=== PATIENT | female | born 1995 | race Caucasian/White ===

== ENCOUNTER → 2017-10-16 09:15 | Outpatient (CLI) | payer OTHER, SELFPAY ==
--- NOTE | 2017-10-16 09:16 | RAD_ITS ---
STUDY: X-RAY - RIGHT KNEE REASON FOR EXAM: Knee pain following injury. TECHNIQUE: 4 view(s) of the knee. COMPARISON: None. FINDINGS: Normal visualized distal femur. Normal visualized proximal tibia and fibula. Normal proximal tibiofibular articulation. Normal medial femorotibial compartment. Normal lateral femorotibial compartment. Normal patellofemoral articulation. The soft tissue structures are unremarkable. RAD/Knee 4 or More Views IMPRESSION: Normal x-ray examination of the right knee. Electronically Signed: Juan Sofia MD at 9:55 EDT Tel , Service support ,
[2017-10-16 10:36] LABS: Lyme Ab Screen Interpretation REF LAB
[2017-10-16 12:18] LABS: Absolute Lymphocyte Count 2.17 X10^3/ul (0.83-4.51); Absolute Neutrophil Count 4.1 X10^3/uL (2.0-7.7); Basophil# 0.02 X10^3/uL; Basophil% 0.3 % (0-1); Eosinophil# 0.21 X10^3/uL; Hematocrit 45.5 % (37-47); Hemoglobin 15.2 g/dl (12.0-15.0); Lymphocyte # 2.17 X10^3/ul (4.0); Lymphocyte % 31.2 % (19-41); Mean Corp Hgb Conc 33.4 g/gl (32-36); Mean Corpuscular Hgb 30.5 pg (27.0-32.0); Mean Corpuscular Volume 91.2 fL (81-99); Mean Platelet Vol. 9.7 fl (6.2-12.0); Monocyte# 0.44 X10^3/uL; Monocyte% 6.3 % (0-10); Neutrophil # 4.11 X10^3/uL (2.7-7.7); Neutrophil % 59.1 % (47-70); Platelet Count 350 K/mm3 (150-450); RBC Distribution Width CV 12.7 % (11.6-14.6); RBC Distribution Width SD 41.8 fl (35.1-43.9); Red Blood Count 4.99 M/mm3 (4.2-5.4)
[2017-10-16 12:19] LABS: POSITIVE COUNT NO; POSITIVE DIFFERENTIAL NO; POSITIVE MORPHOLOGY NO
[2017-10-16 12:25] LABS: CRP < 2.90 mg/L (0.0-3.0); Rheumatoid Factor < 10.0 IU/mL (<15)
[2017-10-16 12:31] LABS: Erythrocyte Sedimentation Rate 3 mm/hr (0-20)
[2017-10-18 14:19] LABS: ANTINUCLEAR ANTIBODIES DIRECT Negative (Negative); Lyme Scn Total Ab w/Rflx <0.91 ISR (0.00-0.90)
== END ==
PROVIDERS: Family Provider Internal Medicine; PCP Internal Medicine; Visit Provider Orthopaedic Surgery
DX: M13.161 Monoarthritis, not elsewhere classified, right knee (principal); M25.561 Pain in right knee
CPT/HCPCS: 36415; 73564; 85025; 85652; 86038; 86140; 86431; 86618

== ENCOUNTER → 2018-05-03 09:10 | Outpatient (CLI) | payer OTHER, SELFPAY ==
[2018-05-03 09:57] LABS: Erythrocyte Sedimentation Rate < 1 mm/hr (0-20)
[2018-05-03 10:00] LABS: Absolute Lymphocyte Count 2.96 X10^3/ul (0.83-4.51); Absolute Neutrophil Count 3.6 X10^3/uL (2.0-7.7); Basophil# 0.03 X10^3/uL; Basophil% 0.4 % (0-1); Eosinophil# 0.26 X10^3/uL; Eosinophils% 3.6 % (0-5); Hematocrit 45.1 % (37-47); Hemoglobin 14.7 g/dl (12.0-15.0); Lymphocyte # 2.96 X10^3/ul (4.0); Lymphocyte % 41.5 % (19-41); Mean Corp Hgb Conc 32.6 g/gl (32-36); Mean Corpuscular Hgb 30.1 pg (27.0-32.0); Mean Corpuscular Volume 92.2 fL (81-99); Monocyte# 0.32 X10^3/uL; Monocyte% 4.5 % (0-10); Neutrophil # 3.57 X10^3/uL (2.7-7.7); POSITIVE COUNT NO; POSITIVE DIFFERENTIAL NO; POSITIVE MORPHOLOGY NO; Platelet Count 273 K/mm3 (150-450); RBC Distribution Width CV 12.9 % (11.6-14.6); Red Blood Count 4.89 M/mm3 (4.2-5.4); White Blood Count 7.1 K/mm3 (4.4-11.0)
[2018-05-07 09:01] LABS: ANTINUCLEAR ANTIBODIES DIRECT Negative (Negative)
[2018-05-07 22:08] LABS: Lyme IgG P18 Ab Absent (.); Lyme IgG P23 Ab Absent (.); Lyme IgG P28 Ab Absent (.); Lyme IgG P30 Ab Absent (.); Lyme IgG P39 Ab Absent (.); Lyme IgG P41 Ab Present (.); Lyme IgG P45 Ab Absent (.); Lyme IgG P58 Ab Absent (.); Lyme IgG P66 Ab Absent (.); Lyme IgG P93 Ab Absent (.); Lyme IgM P23 Ab Absent (.); Lyme IgM P39 Ab Absent (.); Lyme IgM P41 Ab Absent (.)
[2018-05-08 15:51] LABS: Angiotensin Convert Enzyme 31 U/L (14-82); Lyme IgG WB Interpretation Negative (.); Lyme IgM WB Interpretation Negative (.)
[2018-05-10 05:26] LABS: Rapid Plasmin Reagin (RPR) NONREACTIVE (NONREACTIVE)
== END ==
PROVIDERS: Family Provider Internal Medicine; PCP Internal Medicine
DX: H43.391 Other vitreous opacities, right eye (principal)
CPT/HCPCS: 36415; 82164; 85025; 85652; 86038; 86592; 86617

== ENCOUNTER → 2021-01-26 | Outpatient (CLI) | payer OTHER, SELFPAY ==
[2021-01-26 16:19] VITALS: BMI 20.9
[2021-01-26 17:51] LABS: Bacteria 0 SEEN /hpf (None Seen); Mucous, Urine 0 SEEN /hpf (<or=2+); Red Blood Cells-Urine 0 SEEN /hpf (0-5); Squamous Epithelial Cells - UA 0 SEEN /hpf (5-10); White Blood Cells 0 SEEN /hpf (0-5)
[2021-01-26 18:16] LABS: Color, Urine Yellow (Yellow); Glucose, Dipstick Normal (Normal); Ketone-Dipstick Negative (Negative); Leukocyte Esterase-Dipstick Negative /ul (Negative); Nitrite-Dipstick Negative (Negative); Occult Blood-Urine Negative /ul (Negative); Protein-Dipstick Negative (Negative); Urine Bilirubin Dipstick Negative (Negative); Urine Clarity Clear (Clear); Urine Urobilinogen Normal (Normal)
== END | disposition home or self-care (01) ==
LOC: LABSPEC 17:50
PROVIDERS: PCP Internal Medicine; Visit Provider Physician Assistant
DX: R39.15 Urgency of urination (principal)
CPT/HCPCS: 81001; 87086; 87088

== ENCOUNTER → 2021-02-17 | Outpatient (CLI) | payer OTHER, SELFPAY ==
[2021-02-17 15:00] VITALS: BMI 20.9
[2021-02-17 15:38] LABS: Bacteria 0 SEEN /hpf (None Seen); Mucous, Urine 0 SEEN /hpf (<or=2+); Red Blood Cells-Urine 0 SEEN /hpf (0-5); White Blood Cells 0 SEEN /hpf (0-5)
[2021-02-17 16:52] LABS: Color, Urine Straw (Yellow); Glucose, Dipstick Normal (Normal); Ketone-Dipstick Negative (Negative); Leukocyte Esterase-Dipstick Negative /ul (Negative); Nitrite-Dipstick Negative (Negative); Occult Blood-Urine Negative /ul (Negative); Protein-Dipstick Negative (Negative); Urine Bilirubin Dipstick Negative (Negative); Urine Clarity Clear (Clear); Urine Urobilinogen Normal (Normal)
[2021-02-17 17:10] LABS: Squamous Epithelial Cells - UA 0-5 SEEN /hpf (5-10)
[2021-02-20 14:07] LABS: Chlamydia By Nucleic Acid AMP Negative (Negative)
[2021-02-21 12:10] LABS: Gonococcus By Nucleic Acid AMP Negative (Negative)
== END | disposition home or self-care (01) ==
LOC: LABSPEC 15:37
PROVIDERS: PCP Internal Medicine; Referring Provider Physician Assistant; Visit Provider Physician Assistant
DX: R35.0 Frequency of micturition (principal)
CPT/HCPCS: 81001; 87086; 87088; 87491; 87591

== ENCOUNTER → 2022-04-28 | Outpatient (CLI) | payer OTHER, SELFPAY ==
[2022-04-28 10:40] LABS: T4 Free Direct 0.92 ng/dL (0.76-1.46); Thyroid Stim Hormone (TSH) 1.69 uIU/mL (0.358-3.74)
== END | disposition home or self-care (01) ==
LOC: LAB 09:15
PROVIDERS: PCP Internal Medicine; Visit Provider Internal Medicine
DX: N92.6 Irregular menstruation, unspecified (principal)
CPT/HCPCS: 36415; 84439; 84443

== ENCOUNTER → 2022-06-19 | Outpatient (CLI) | payer OTHER, SELFPAY ==
--- NOTE | 2022-06-19 10:12 | RAD_ITS ---
STUDY: X-RAY - CERVICAL SPINE REASON FOR EXAM: Female, 27 years old. Neck pain TECHNIQUE: 3 view(s) of the cervical spine were obtained. COMPARISON: None FINDINGS: Normal anterior atlantoaxial articulation. Normal odontoid process. Scoliosis/torticollis. Normal cervical lordosis. Normal vertebral bodies and endplates. Normal disc space heights. Normal visualized intervertebral neuroforamina. The soft tissue structures are unremarkable. Soft tissue density right neck requires clinical correlation. RAD/Cerv Spine 2 or 3 Views IMPRESSION: Torticollis. Soft tissue density right neck requires clinical correlation may be external. Electronically Signed: Sae Campos MD at 18:45 EST ,
== END | disposition home or self-care (01) ==
LOC: MTRAD 10:11
PROVIDERS: PCP Internal Medicine; Referring Provider Chiropractor; Visit Provider Chiropractor
DX: M54.2 Cervicalgia (principal); R51.9 Headache, unspecified; M99.01 Segmental and somatic dysfunction of cervical region; G89.29 Other chronic pain
CPT/HCPCS: 72040

== ENCOUNTER → 2022-06-22 | Outpatient (CLI) | payer OTHER, SELFPAY ==
[2022-06-22 11:24] LABS: hCG Titer Quant., Serum 67 mIU/mL (1-3)
== END | disposition home or self-care (01) ==
LOC: LAB 09:41
PROVIDERS: PCP Internal Medicine; Visit Provider Obstetrics & Gynecology
DX: N92.6 Irregular menstruation, unspecified (principal)
CPT/HCPCS: 36415; 84702

== ENCOUNTER → 2022-07-04 | Outpatient (CLI) | payer OTHER, SELFPAY ==
--- NOTE | 2022-07-04 14:57 | RAD_ITS ---
STUDY: X-RAY - CERVICAL SPINE REASON FOR EXAM: Female, 27 years old. Neck pain and headache TECHNIQUE: 2 view(s) of the cervical spine were obtained. COMPARISON: Earlier today FINDINGS: Normal anterior atlantoaxial articulation. Normal odontoid process. Stable mild levoscoliosis. Normal cervical lordosis. Normal vertebral bodies and endplates. Normal disc space heights. Normal visualized intervertebral neuroforamina. The soft tissue structures are unremarkable. RAD/Cerv Spine 2 or 3 Views IMPRESSION: No acute findings, stable mild levoscoliosis Electronically Signed: Renato Montemayor MD at 15:42 EST ,
== END | disposition home or self-care (01) ==
LOC: RAD 14:56
PROVIDERS: PCP Internal Medicine; Visit Provider Chiropractor
DX: M54.2 Cervicalgia (principal); M99.01 Segmental and somatic dysfunction of cervical region; M41.9 Scoliosis, unspecified; G89.29 Other chronic pain
CPT/HCPCS: 72040

== ENCOUNTER → 2022-08-08 | Outpatient (CLI) | payer OTHER, SELFPAY ==
[2022-08-08 08:42] LABS: Hematocrit 41.8 % (37-47); Hemoglobin 13.9 g/dL (12.0-15.0); Mean Corp Hgb Conc 33.3 g/dL (32-36); Mean Corpuscular Hgb 30.3 pg (27.0-32.0); Mean Corpuscular Volume 91.1 fL (81-99); Mean Platelet Vol. 9.6 fl (6.2-12.0); Platelet Count 347 K/mm3 (150-450); RBC Distribution Width CV 12.9 % (11.6-14.6); RBC Distribution Width SD 42.8 fl (35.1-43.9); Red Blood Count 4.59 M/mm3 (4.2-5.4); White Blood Count 8.4 K/mm3 (4.4-11.0)
[2022-08-08 09:40] LABS: HIV - WCH Non-Reactive (Nonreactive); Hepatitis B Surface Antigen Non-Reactive (Nonreactive); Hepatitis C Antibody Non-Reactive (Nonreactive); Rubella IgG Reactive (Nonreactive); Syphilis Antibodies Non-reactive
== END | disposition home or self-care (01) ==
LOC: LAB 07:38
PROVIDERS: PCP Internal Medicine; Referring Provider Obstetrics & Gynecology; Visit Provider Obstetrics & Gynecology
DX: Z34.01 Encounter for supervision of normal first pregnancy, first trimester (principal)
CPT/HCPCS: 36415; 85027; 86703; 86762; 86780; 86803; 86850; 86900; 86901; 87340

== ENCOUNTER → 2022-10-09 | Outpatient (CLI) | payer OTHER, SELFPAY ==
--- NOTE | 2022-10-09 09:47 | US_ITS ---
STUDY: SECOND AND THIRD TRIMESTER OBSTETRICAL ULTRASOUND REASON FOR EXAM: Female, 27 years old LMP: May 26, 2022. TECHNIQUE: Transabdominal TECHNICAL QUALITY: Adequate. PRIOR ULTRASOUND: None. FINDINGS: There is a single intrauterine fetus. The fetus is in a breech presentation. There is demonstrated cardiac activity with a heart rate of 155 bpm. There is a normal amniotic fluid volume. The largest amniotic fluid pocket measures 6.3 cm x 5.6 cm. The amniotic fluid index (YAO) is within normal limits. The placenta is anterior in location and is not low lying. There are Grade 0 placental changes. The cervix measures 3.2 cm in length. The bilateral adnexal regions are normal. BIOMETRY: BPD: 4.5 cm: 19 weeks, 5 days HC: 16.5 cm: 19 weeks, 1 days AC: 14.1 cm: 19 weeks, 3 days FL: 3.1 cm: 19 weeks, 3 days CI: 81% FL/BPD: 67.1% FL/HC: FL/AC: 21.7% HC/AC: 1.17 age by current US: 19 weeks, 1 days. BELTRAN by current US: March 04, 2023. Estimated weight: 295 grams, +/- 44 grams, 47.2 %. Age by LMP: 19 weeks, 3 days. BELTRAN by LMP: March 02, 2023. ANATOMY: Gender: Female Cranium: Normal lateral ventricles. Normal choroid plexus. Normal cerebellum. Normal cisterna magna. Normal face, nose and lips. Chest: Normal 4-chamber heart. Abdomen/Pelvis: Normal diaphragm. Normal stomach. Normal abdominal wall. Normal cord insertion. Normal 3 vessel cord. Normal kidneys. Normal bladder. Spine: Normal cervical spine. Normal thoracic spine. Normal lumbar spine. Normal sacrum. Extremities: Normal bilateral upper extremities. Normal bilateral lower extremities. US/OB Anatomy Scan IMPRESSION: Single live intrauterine gestation with mean gestational age of 19 weeks and 1 day. Electronically Signed: Raghav Blas MD at 15:42 EDT ,
== END | disposition home or self-care (01) ==
LOC: US 09:46
PROVIDERS: PCP Internal Medicine; Visit Provider Obstetrics & Gynecology
DX: Z34.92 Encounter for supervision of normal pregnancy, unspecified, second trimester (principal)
CPT/HCPCS: 76805

== ENCOUNTER → 2022-11-30 | Outpatient (CLI) | payer OTHER, SELFPAY ==
[2022-11-30 10:15] LABS: Absolute Lymphocyte Count 2.25 X10^3/uL (0.83-4.51); Absolute Neutrophil Count 6.1 X10^3/uL (2.0-7.7); Basophil# 0.03 X10^3/uL; Basophil% 0.3 % (0-1); Eosinophil# 0.14 X10^3/uL; Eosinophils% 1.5 % (0-5); Hemoglobin 12.2 g/dL (12.0-15.0); Lymphocyte # 2.25 X10^3/ul (0.83-4.51); Lymphocyte % 24.8 % (19-41); Mean Corp Hgb Conc 32.1 g/dL (32-36); Mean Corpuscular Hgb 31.9 pg (27.0-32.0); Mean Corpuscular Volume 99.2 fL (81-99); Mean Platelet Vol. 9.3 fl (6.2-12.0); Monocyte# 0.48 X10^3/uL; Monocyte% 5.3 % (0-10); NRBC Flagged by Analyzer 0 % (0-5); Neutrophil # 6.11 X10^3/uL (2.7-7.7); Neutrophil % 67.4 % (47-70); Platelet Count 272 K/mm3 (150-450); RBC Distribution Width CV 13.6 % (11.6-14.6); RBC Distribution Width SD 49.6 fl (35.1-43.9); Red Blood Count 3.83 M/mm3 (4.2-5.4); White Blood Count 9.1 K/mm3 (4.4-11.0)
[2022-11-30 10:42] LABS: Glucose Challenge Gest 1H 50g 83 mg/dL (70-140)
== END | disposition home or self-care (01) ==
LOC: LAB 08:15
PROVIDERS: PCP Internal Medicine; Referring Provider Advanced Practice Midwife; Visit Provider Advanced Practice Midwife
DX: Z34.02 Encounter for supervision of normal first pregnancy, second trimester (principal); Z3A.21 21 weeks gestation of pregnancy
CPT/HCPCS: 36415; 82950; 85025

== ENCOUNTER → 2022-12-13 | Outpatient (CLI) | payer OTHER, SELFPAY ==
[2022-12-13 13:32] LABS: ALB/GLOB Ratio 0.7 RATIO (0.9-2.4); AST(SGOT) 17 U/L (15-37); Alanine Aminotransfer ALT/SGPT 20 U/L (13-56); Albumin, Serum 2.7 g/dL (3.2-5.0); Alkaline Phosphatase 79 U/L (45-117); Anion Gap 9 (5-15); BUN 7 mg/dL (7-18); BUN/Creat Ratio 17.5 RATIO (10-20); Calcium,Total 8.7 mg/dL (8.5-10.1); Chloride 106 mmol/L (98-107); EST Glomerular Filtration Rate 205 mL/min (>60); Est Glom Filt Rate - Afr Amer 248 mL/min (>60); Globulin 3.8 g/dL (2.2-4.2); Glucose 101 mg/dL (74-106); Potassium 3.9 mmol/L (3.5-5.1); Protein, Total 6.5 g/dL (6.4-8.2); Sodium Level 139 mmol/L (136-145); T4 Free Direct 0.79 ng/dL (0.76-1.46); Thyroid Stim Hormone (TSH) 1.34 uIU/mL (0.358-3.74)
== END | disposition home or self-care (01) ==
LOC: BIMLAB 11:21
PROVIDERS: PCP Internal Medicine; Referring Provider Internal Medicine; Visit Provider Internal Medicine
DX: R00.2 Palpitations (principal)
CPT/HCPCS: 36415; 80053; 84439; 84443

== ENCOUNTER → 2022-12-14 | Outpatient (CLI) | payer OTHER, SELFPAY | END | disposition home or self-care (01) | LOC: PSN 09:53 | PROVIDERS: PCP Internal Medicine; Referring Provider Internal Medicine; Visit Provider Internal Medicine | DX: R00.2 Palpitations (principal) | CPT/HCPCS: 93225; 93226 ==

== ENCOUNTER → 2022-12-27 | Outpatient (CLI) | payer OTHER, SELFPAY ==
--- NOTE | 2022-12-27 13:49 | ECHOD_ITS ---
Reason For Study: PALPITATIONS Procedure This was a 2D Doppler, Color Flow transthoracic echocardiogram. Exam performed in department. Left Ventricle Normal LV size. Left ventricular systolic function is normal. The estimated ejection fraction is 60 %. No regional wall motion abnormalities noted. Right Ventricle Normal RV size. Normal systolic function. Atria Normal left atrium. Normal right atrium. Mitral Valve Normal mitral valve. Tricuspid Valve Normal tricuspid valve. Aortic Valve Normal aortic valve. Pulmonic Valve The pulmonic valve is not well visualized. Great Vessels Normal aortic root. Pericardium/Pleural No pericardial effusion. MMode/2D Measurements & Calculations LVIDd: 4.4 cm IVSd: 1.0 cm Ao root diam: 2.3 cm LVIDs: 3.2 cm LVPWd: 0.91 cm FS: 28.1 % LAV(MOD-bp): 25.8 ml LVAd ap4: 18.5 cm2 SV(MOD-sp4): 26.3 ml LAV(MOD-bp) Indexed: 17.5 ml/m2 LVLd ap4: 7.2 cm LAV(MOD-sp2): 26.3 ml EDV(MOD-sp4): 40.0 ml LAV(MOD-sp4): 23.3 ml EDV(sp4-el): 40.5 ml LVAs ap4: 8.9 cm2 LVLs ap4: 5.5 cm ESV(MOD-sp4): 13.7 ml ESV(sp4-el): 12.2 ml EF(MOD-sp4): 65.8 % EF(sp4-el): 69.8 % SV(sp4-el): 28.3 ml LA A4 area: 11.9 cm2 LA dimension(2D): 3.2 cm RA A4 area: 6.7 cm2 Time Measurements MV dec time: 0.16 sec Doppler Measurements & Calculations MV E max vikas: 71.1 cm/sec Lat Peak E' Vikas: 21.4 cm/sec Med Peak E' Vikas: 14.9 cm/sec MV A max vikas: 62.4 cm/sec E/E' lat: 3.3 E/E' med: 4.8 MV E/A: 1.1 MV V2 max: 83.0 cm/sec Ao V2 max: 152.8 cm/sec MV max P.8 mmHg MV dec slope: 468.6 cm/sec2 Ao max P.3 mmHg MV V2 mean: 63.1 cm/sec Ao V2 mean: 104.3 cm/sec MV mean P.7 mmHg Ao mean P.0 mmHg MV V2 VTI: 16.0 cm Ao V2 VTI: 29.2 cm AV (velocity ratio): 0.85 LV V1 max: 128.9 cm/sec PA V2 max: 112.7 cm/sec LV V1 max P.7 mmHg PA V2 mean: 80.1 cm/sec LV V1 mean P.6 mmHg LV V1 mean: 88.5 cm/sec LV V1 VTI: 24.7 cm ECHO/Echo Complete Interpretation Summary Normal LV size. Left ventricular systolic function is normal. The estimated ejection fraction is 60 %. Structurally normal valves. Ordering Physician: Fredy Pena Referring Physician: Fredy Pena Performed By: Krys Hodges RCS
== END | disposition home or self-care (01) ==
LOC: CVS 13:40
PROVIDERS: PCP Internal Medicine; Referring Provider Internal Medicine Cardiovascular Disease; Visit Provider Internal Medicine Cardiovascular Disease
DX: R00.2 Palpitations (principal)
CPT/HCPCS: 93306

== ENCOUNTER → 2023-01-18 | Outpatient (CLI) | payer OTHER, SELFPAY ==
--- NOTE | 2023-01-18 14:40 | US_ITS ---
STUDY: SECOND AND THIRD TRIMESTER OBSTETRICAL ULTRASOUND - LIMITED REASON FOR EXAM: Female, 27 years old GROWTH-SGA LMP: PRIOR ULTRASOUND: 10/09/2022 TECHNIQUE: Transabdominal TECHNICAL QUALITY: Adequate. FINDINGS: There is a single intrauterine fetus. The fetus is in a cephalic presentation. There is demonstrated cardiac activity with a heart rate of 166 bpm. There is a normal amniotic fluid volume. The largest amniotic fluid pocket measures 5.9 cm. The amniotic fluid index (YAO) is 19.8 cm. The placenta is anterior in location and is not low lying. There are Grade 2 placental changes. The cervix measures 3.3 cm in length. BIOMETRY: BPD: 8.2 cm: 33 weeks, 1 days HC: 31.4 cm: 35 weeks, 2 days AC: 29.7 cm: 33 weeks, 5 days FL: 6.4 cm: 33 weeks, 0 days Age by LMP: weeks, days. BELTRAN by LMP: . age by prior US: weeks, days. BELTRAN by prior US: . age by current US: 33 weeks, 5 days. BELTRAN by current US: 03/03/2023. Estimated weight: 2208 grams, +/- 331 grams, 33 percentile. Gender: US/OB Limited With Biometrics IMPRESSION: Living intrauterine of 33 weeks 5 days as described above. Electronically Signed: Leon Felix MD at 18:17 EDT ,
== END | disposition home or self-care (01) ==
LOC: US 14:27
PROVIDERS: PCP Internal Medicine; Referring Provider Advanced Practice Midwife; Visit Provider Advanced Practice Midwife
DX: Z34.90 Encounter for supervision of normal pregnancy, unspecified, unspecified trimester (principal); Z3A.33 33 weeks gestation of pregnancy
CPT/HCPCS: 76816

== ENCOUNTER 2023-02-09 10:55 | Outpatient (CLI) | payer OTHER, SELFPAY ==
[2023-02-09 11:12] VITALS: BMI 27.8
[2023-02-09 11:19] VITALS: BP 126/79; PULSE 93; TEMP 36.6; O2SAT 99
[2023-02-09 11:52] LABS: ROM Internal Control Test YES-OK TO RESULT pt. (Internal QC); ROM Patient Test Negative (Negative); Record Kit Lot#, ROM+ K1374
--- NOTE | 2023-02-11 10:33 | OB.TRI.NOTE ---
HPI - General General Date of Admission: 02/09/23 Date of Service: 02/09/23 Chief Complaint: LOF HPI Narrative MELANY MACE, is a 28 F who presents with possible LOF. PFSH PFS Medical History Back pain Chronic neck pain Menstrual irregularity Other vitreous opacities, bilateral Palpitations Persistent headaches Preventative health care Seasonal allergies Shortness of breath Urinary frequency Home Medications mv-mn no.97-folic 180 mcg-dha 25 mg-herb no.293 25 mg chewable tablet (Alive Daily Support ) 1 tab PO DAILY 04/19/22 [History Last Taken 02/08/23 21:00 1 TAB] aspirin 81 mg chewable tablet (Susie Chewable Low Dose Aspirin) 162 mg PO DAILY 12/13/22 [History Last Taken 02/08/23 21:00 81 mg] loratadine 10 mg tablet (Claritin) 10 mg PO DAILY 12/13/22 [History Last Taken Unknown] Allergy/AdvReac Type Severity Reaction Status Date / Time mold Allergy unknown Verified 01/29/23 09:05 ragweed pollen Allergy unknown Verified 01/29/23 09:05 Family History Grandmother Cancer lung CVA (cerebral vascular accident) Grandfather Cancer pancreatic Father Heart disease Hypertension Hyperlipidemia Grandfather Heart disease CVA (cerebral vascular accident) Surgical History H/O wisdom tooth extraction Social History Smoking Status: Never smoker alcohol intake: never substance use type: does not use caffeine: Yes (Occasionally) Type: coffee what type of physical activity do you participate in: walking frequency: 3-4 times per week NST FHR Rate Baby A Baseline: 120 Variability:: Moderate Accelerations:: 15 x 15 Decelerations:: None NST Reactive:: Yes FHR Category:: Category I Uterine Activity:: irregular ctx's that the pt is not feeling Assessment & Plan (1) 37 weeks gestation of : (2) Vaginal discharge: PLAN: Not ruptured. NST reactive. D/c home.
== END 2023-02-09 12:48 | disposition home or self-care (01) ==
LOC: WPOUT 11:00 → WP 11:01
PROVIDERS: PCP Internal Medicine; Referring Provider Obstetrics & Gynecology; Visit Provider Obstetrics & Gynecology
DX: O99.891 Other specified diseases and conditions complicating pregnancy (principal); Z3A.37 37 weeks gestation of pregnancy; N89.8 Other specified noninflammatory disorders of vagina
CPT/HCPCS: 59025; 59050; 84112; 99221; G0378

== ENCOUNTER 2023-02-28 18:50 | Inpatient (IN) | payer OTHER, SELFPAY ==
[2023-02-28 19:07] VITALS: BMI 27.9
[2023-02-28 19:24] VITALS: BP 124/76; PULSE 103; TEMP 36.4
[2023-02-28] MEDS: Lactated Ringers 1,000 ML 50 ML IV (19:25)
[2023-02-28 19:47] LABS: Absolute Lymphocyte Count 2.92 X10^3/uL (0.83-4.51); Absolute Neutrophil Count 8.9 X10^3/uL (2.0-7.7); Basophil# 0.03 X10^3/uL; Basophil% 0.2 % (0-1); Eosinophil# 0.27 X10^3/uL; Eosinophils% 2.1 % (0-5); Hematocrit 38.5 % (37-47); Hemoglobin 12.8 g/dL (12.0-15.0); Lymphocyte # 2.92 X10^3/ul (0.83-4.51); Lymphocyte % 22.9 % (19-41); Mean Corp Hgb Conc 33.2 g/dL (32-36); Mean Corpuscular Volume 96.3 fL (81-99); Mean Platelet Vol. 9.7 fl (6.2-12.0); Monocyte# 0.55 X10^3/uL; Monocyte% 4.3 % (0-10); NRBC Flagged by Analyzer 0 % (0-5); Neutrophil # 8.92 X10^3/uL (2.7-7.7); Platelet Count 242 K/mm3 (150-450); RBC Distribution Width CV 13.2 % (11.6-14.6); RBC Distribution Width SD 46.7 fl (35.1-43.9); White Blood Count 12.8 K/mm3 (4.4-11.0)
[2023-02-28 19:50] VITALS: PULSE 106; PULSE 99; O2SAT 99
[2023-02-28] MEDS: miSOPROStol 25 MCG TABLET PO (20:08)
[2023-02-28 20:24] LABS: Syphilis Antibodies Non-reactive
[2023-03-01] VITALS (57 sets, daily range): BP systolic 94–125; BP diastolic 49–76; PULSE 68–116; RESP 16; TEMP 36.1–36.9; O2SAT 88–100
[2023-03-01] MEDS: miSOPROStol 25 MCG TABLET PO ×2 (00:11→04:18)
[2023-03-01] MEDS: 0.9% Normal Saline Single 100 ML IV.SOLN. INTRA-UTER (06:31)
--- NOTE | 2023-03-01 06:42 | HP.PCM.OB_ITS ---
HPI - General General Date of Admission: 02/28/23 Date of Service: 03/01/23 Chief Complaint: induction of labor HPI Narrative MELANY MACE, is a 28 F 1 para 0 who presented at 39-5/7 weeks on 02/28/2023 after evaluation office where she complained of decreased movement. She desired elective induction of labor. She denied any vaginal bleeding or leaking of fluid or regular contractions Maternal Data Information Final BELTRAN: 03/02/23 Gestational age: 39 6/7 PFSH [facility] Medical History (Updated 03/01/23 @ 06:[address] Anjelica Pichardo MD) Back pain Chronic neck pain Menstrual irregularity Other vitreous opacities, bilateral Palpitations Persistent headaches Preventative health care Seasonal allergies Shortness of breath Urinary frequency Home Medications mv-mn no.97-folic 180 mcg-dha 25 mg-herb no.293 25 mg chewable tablet (Alive Daily Support ) 1 tab PO DAILY pregnan 04/19/22 [History Last Taken 02/27/23] aspirin 81 mg chewable tablet (Susie Chewable Low Dose Aspirin) 162 mg PO DAILY 12/13/22 [History Last Taken 02/27/23] loratadine 10 mg tablet (Claritin) 10 mg PO DAILY allergies 12/13/22 [History Last Taken 02/28/23] Allergy/AdvReac Type Severity Reaction Status Date / Time mold Allergy unknown Verified 02/28/23 19:30 ragweed pollen Allergy unknown Verified 02/28/23 19:30 Family History Grandmother Cancer lung CVA (cerebral vascular accident) Grandfather Cancer pancreatic Father Heart disease Hypertension Hyperlipidemia Grandfather Heart disease CVA (cerebral vascular accident) Surgical History H/O wisdom tooth extraction Social History Smoking Status: Never smoker alcohol intake: never substance use type: does not use caffeine: Yes (Occasionally) Type: coffee what type of physical activity do you participate in: walking frequency: 3-4 times per week History Elective abortions Hx Para 0 Spontaneous abortions Hx # Term Pregnancies Ectopic pregnancies Hx # Pregnancies Multiple births # of living children ROS Constitutional Constitutional: Denies fatigue, fever(s) or malaise Eyes Eyes: Denies change in vision ENT HEENT: Denies dizziness or headache(s) Cardiovascular Cardiovascular: Denies chest pain, dyspnea or lightheadedness Respiratory/Chest Respiratory/Chest: Denies cough or dyspnea Gastrointestinal Gastrointestinal: Denies change in bowel habits Genitourinary Genitourinary: Denies burning urination or genital lesions Integumentary Integumentary: Denies rash Neurologic Neurologic: Denies confusion, dizziness, headache(s), numbness or weakness Vital Signs Vital Signs Vital Signs: 02/28/23 19:24 02/28/23 19:24 02/28/23 19:50 Temperature Temperature Source Pulse Rate 103 H 106 H Blood Pressure 124/76 H BP Systolic 124 BP Diastolic 76 Pulse Ox 02/28/23 19:50 02/28/23 19:24 02/28/23 19:50 Temperature Temperature Source Temporal Pulse Rate 99 Blood Pressure BP Systolic BP Diastolic Pulse Ox 99 02/28/23 19:24 03/01/23 00:06 03/01/23 00:06 Temperature 97.6 F L Temperature Source Pulse Rate 81 Blood Pressure 112/61 BP Systolic 112 BP Diastolic 61 Pulse Ox 03/01/23 00:06 03/01/23 00:06 03/01/23 04:11 Temperature Temperature Source Pulse Rate 86 Blood Pressure 117/69 BP Systolic 117 BP Diastolic 69 Pulse Ox 98 03/01/23 04:11 03/01/23 04:11 03/01/23 00:06 Temperature 97.0 F L Temperature Source Pulse Rate 79 Blood Pressure BP Systolic BP Diastolic Pulse Ox 99 Weight Weight: 73.936 kg Body Mass Index (BMI) 27.9 Physical Exam Const alert and no apparent distress General Appearance: cooperative HEENT normocephalic Resp normal respiratory effort Cardio regular rate GI soft to palpation GI Narrative: gravid, nontender, appropriate for gestational age Extremity no calf tenderness General Extremity: edema Skin no wounds Rashes: No rashes noted Psych activity/motor behavior normal Labs Labs Labs: Blood Type A POSITIVE Antibody Screen NEGATIVE Hct 38.5 % (37-47) Hgb 12.8 g/dL (12.0-15.0) Obstetrics US Syphilis Total Ab Non-reactive Rubella IgG Antibody Reactive (Nonreactive) Hep Bs Antigen Non-Reactive (Nonreactive) Chlamydia DNA (BARRY) Negative (Negative) Neisseria gonorrhoeae DNA (BARRY) Negative (Negative) HIV 1&2 Antibody Non-Reactive (Nonreactive) Glucose 1 Hr 50 gm 83 mg/dL (70-140) Miscellaneous Test Assessment & Plan (1) 39 weeks gestation of : PLAN: 28-year-old 1 para 0 at 39-5/7 weeks upon admission, currently at 39-6/7 weeks for elective induction of labor. Risk benefits and alternatives to induction of labor were discussed with the patient and consent was signed. She received Cytotec overnight. She is currently 1 cm 60% effaced -2 station. A Vásquez was placed over the stylette in the usual sterile fashion and balloon inflated to 30 cc. Placement over internal cervical os was confirmed. Patient and fetus tolerated the procedure well. Will start Pitocin after 4 hours from last Cytotec. Estimated weight is less than 4000 g clinically and pelvis clinically adequate to expect vaginal delivery. May have routine pain control measures. Group B strep status is positive, initiate group B strep prophylaxis when Vásquez out or rupture of membranes.
--- NOTE | 2023-03-01 08:07 | PCM.PN.OB ---
Subjective Subjective Patient seen at bedside. Vásquez bulb out. Denies any pain. Starting to feel contractions. Objective Data Objective Data Vital Signs: Vital Signs Temp Pulse BP Pulse Ox 97.0 F L 81 117/74 99 03/01/23 07:13 03/01/23 07:14 03/01/23 07:14 03/01/23 07:13 Weight: 163 lb Body Mass Index (BMI) 27.9 Lab / Micro Data 02/28/23 19:25 Labs: Laboratory Results - last 24 hr 02/28/23 19:25: WBC 12.8 H, RBC 4.00 L, Hgb 12.8, Hct 38.5, MCV 96.3, MCH 32.0, MCHC 33.2, RDW Std Deviation 46.7 H, RDW Coeff of Js 13.2, Plt Count 242, MPV 9.7, Immature Gran % (Auto) 0.500, Neut % (Auto) 70.0, Lymph % (Auto) 22.9, [place] % (Auto) 4.3, Eos % (Auto) 2.1, Baso % (Auto) 0.2, Absolute Neuts (auto) 8.9 H, Absolute Lymphs (auto) 2.92, Nucleated RBC % 0, Syphilis Total Ab Non-reactive, Blood Type A POSITIVE, Antibody Screen NEGATIVE ROS Eyes Eyes: Denies blurry vision, change in vision or spots in vision ENT HEENT: Denies dizziness or headache(s) Cardiovascular Cardiovascular: Denies abdominal pain, chest pain or dyspnea Respiratory/Chest Respiratory/Chest: Denies cough, dyspnea, shortness of breath at rest or shortness of breath with exertion Gastrointestinal Gastrointestinal: Denies abdominal pain, diarrhea or vomiting Genitourinary Genitourinary: Denies change in urinary stream, difficulty urinating or dysuria Musculoskeletal Musculoskeletal: Reports none Integumentary Integumentary: Denies rash Neurologic Neurologic: Denies dizziness, headache(s), memory loss or weakness Assessment & Plan (1) 39 weeks gestation of : (2) Encounter for elective induction of labor: PLAN: Plan PCN IV - First dose running at this time Pitocin IV- starting at 2 mu/min- increase per policy Cat. 1 tracing, NST reactive Pain medications/ epidural when indicated Anticipate
[2023-03-01] MEDS: Oxytocin 15 Units/NS 250ml 15 UNITS/250 ML IV.SOLN 2 UNITS IV (08:38)
[2023-03-01] MEDS: Penicillin G 3,000,000 Units 50 ML 100 UNITS IV (11:36)
[2023-03-01] MEDS: Ondansetron 4 MG/2 ML Vial IV (12:25)
[2023-03-01] MEDS: fentaNYL 100 MCG/2 ML Ampul IV (12:50)
[2023-03-01] MEDS: LACTATED RINGERS 500 ML 999 ML IV (13:27)
[2023-03-01] MEDS: fentaNYL-bupivacaine (epidural) 100 ML BAG EPIDURAL (14:21)
[2023-03-01] MEDS: Lactated Ringers 1,000 ML 200 ML IV (14:24)
[2023-03-01] MEDS: Oxytocin 15 Units/NS 250ml 15 UNITS/250 ML IV.SOLN 83 UNITS IV (16:42)
--- NOTE | 2023-03-01 16:43 | EX.PCM.OBRPT ---
Assessment & Plan (1) (spontaneous vaginal delivery): (2) Care and examination of lactating mother: (3) Laceration, obstetrical, second degree: Maternal Data Information BELTRAN Calculator Estimated Delivery Date Method Current WG Current Estimate 03/02/23 Manual 39w 6d Vaginal Delivery Maternal Presentation Maternal Presentation: Elective Induction Maternal Presentation: at 39.6 weeks gestation for elective induction of labor. Type of Induction: Pitocin, Vásquez Bulb, Amniotomy and Cytotec Operative Information Date of Procedure: 03/01/23 Pre-Operative Diagnosis: Term gestation, Elective induction of labor Post-Operative Diagnosis: , Live female Surgery / Procedure Performed: Spontaneous Vaginal Delivery Type of Anesthesia: Epidural Estimated Blood Loss: 350 Time of Delivery: 16:06 Findings Description of Procedure: Called to bedside for delivery. With minimal maternal effort, head delivered followed immediately by body via somersault maneuver due to inability to remove loose cord around neck. Vigorous female placed on maternal abdomen and was attended to by nursing staff. Pitocin IV initiated for active management. 3 vessel cord clamped and cut after delay by FOB. placed immediately skin to skin with patient. Emptied patient's bladder using a straight catheter. Placenta delivered spontaneously and intact. Second degree laceration repaired in usual fashion using 3-0 Vicryl Rapid. Hemostasis obtained. Fundus firm and 2 below U. Vaginal sweep completed by me. All sponges and needles accounted for. Patient and infant bonding well at this time. EBL 350 cc. APGARS 9/9. Dr. England notified of delivery. Presentation: Vertex Amniotic Membrane Rupture Type: Artificial Time of Membrane Rupture: 0835 Amniotic Fluid Description: Clear Placental Delivery Description: Spontaneous Placenta Disposition: [facility] Cord Vessel Description: 3 Vessels Cord Entanglement: Around neck x 1, loose and - (Around body x1 loose) Nuchal Cord Compression: Without compression Infant A Gender: Female (1 minute): 9 (5 minute): 9 Delayed Cord Clamping: Yes Post Vaginal Delivery Medications Given After Delivery: IV Pitocin Episiotomy Description: None Laceration: 2nd degree Complication Complications: None
[2023-03-01] MEDS: 0.9% Saline Lock 10 ML Syringe IV (20:38)
[2023-03-02 00:15] VITALS: BP 117/63; PULSE 80; RESP 16; TEMP 37.1
[2023-03-02 04:15] VITALS: BP 113/78; PULSE 82; RESP 16; TEMP 36.7
--- NOTE | 2023-03-02 07:02 | PCM.PN.OB ---
Subjective Subjective Patient seen at bedside. Ambulating and voiding without difficulty. Denies headache, dizziness, CP, or SOB. Lochia decreasing. with support. Objective Data Objective Data Vital Signs: Vital Signs Temp Pulse Resp BP Pulse Ox O2 Del Method 98.0 F 82 16 113/78 98 Room Air 03/02/23 04:15 03/02/23 04:15 03/02/23 04:15 03/02/23 04:15 03/01/23 20:40 03/02/23 04:15 Oxygen Delivery Method Room Air Weight: 163 lb Body Mass Index (BMI) 27.9 Intake & Output: Intake and Output for Last 24 Hours 02/28/23 03/01/23 03/02/23 23:59 23:59 23:59 Intake Total 2564.17 / 2564.17 Output Total 700 / 700 400 / 400 Balance 1864.17 / 1864.17 -400 / -400 Lab / Micro Data 02/28/23 19:25 ROS Eyes Eyes: Denies blurry vision, change in vision or spots in vision ENT HEENT: Denies dizziness or headache(s) Cardiovascular Cardiovascular: Denies abdominal pain, chest pain or dyspnea Respiratory/Chest Respiratory/Chest: Denies cough, dyspnea, shortness of breath at rest or shortness of breath with exertion Gastrointestinal Gastrointestinal: Denies abdominal pain, diarrhea or vomiting Genitourinary Genitourinary: Denies change in urinary stream, difficulty urinating or dysuria Musculoskeletal Musculoskeletal: Reports none Integumentary Integumentary: Denies rash Neurologic Neurologic: Denies dizziness, headache(s), memory loss or weakness Physical Exam Const alert and no apparent distress General Appearance: cooperative and comfortable Exam Limitations: no limitations HEENT normocephalic Eyes General Eye: normal appearance of both eyes Neck full ROM General: normal visual inspection Chest Chest: symmetrical chest wall rise Resp normal respiratory effort and normal air movement Effort and Inspection: symmetric chest movement Auscultation: clear to auscultation bilaterally Cardio regular rate and regular rhythm GI normal to inspection, nondistended, normoactive bowel sounds Back/Spine normal ROM Extremity full ROM and no calf tenderness General Extremity: normal exam except as noted Skin no rashes or lesions noted Neuro CN's II-XII intact bilaterally Psych mental status grossly normal Assessment & Plan (1) Laceration, obstetrical, second degree: (2) Care and examination of lactating mother: (3) (spontaneous vaginal delivery): PLAN: Plan PPD 1 Routine care Breast feeding support
--- NOTE | 2023-03-02 07:06 | DCINST_ITS ---
Discharge Instructions Diet Discharge Diet: No restrictions Activity Discharge Activity: Return to Normal Activity, May Shower and May Take a Tub Bath May resume sexual activity in: 4-6 weeks Weight Bearing Status: Weight bearing as tolerated Dressing / Incision Call your doctor if you observe: Fever of 101 or Higher, Inability to urinate, Using more than 1 pad per hour, Shortness of breath, Dizziness, Swelling in the ankles, Chest pain, Calf discomfort and Uncontrolled pain Follow Up Care Please Follow Up With: Machelle Weems CNM When: Within 10 days Test Results: Test results from this visit will be discussed in further detail at your follow- up appointment, if applicable. Discharge Plan Admission Admit Date/Time: 02/28/23 18:50 Primary Reason for Your Visit: Labor and Delivery Attending Provider: Machelle Weems Primary Care Provider: Juan Hagan Discharge Orders/Prescriptions Prescriptions: Continued Alive Daily Support 180 mcg-25 mg- 25 mg tablet,chewable 1 tab PO DAILY Discontinued aspirin [Susie Chewable Aspirin] 81 mg tablet,chewable 162 mg PO DAILY loratadine [Claritin] 10 mg tablet 10 mg PO DAILY Referrals / Follow Up: Juan Hagan MD [Primary Care Provider] -
[2023-03-02 08:51] VITALS: BP 111/75; PULSE 88; RESP 18; TEMP 36.6; O2SAT 99
[2023-03-02 14:00] VITALS: BP 110/70; PULSE 83; RESP 18; TEMP 36.7
[2023-03-02 18:00] VITALS: BP 110/70; PULSE 80; RESP 18; TEMP 37
[2023-03-02 20:12] VITALS: BP 116/63; PULSE 89; RESP 16; TEMP 36.5; O2SAT 99
[2023-03-03 01:58] VITALS: BP 103/61; PULSE 90; RESP 16; TEMP 36.1; O2SAT 98
[2023-03-03] MEDS: Naproxen 500 MG Tablet PO (06:10)
[2023-03-03 08:00] VITALS: BP 100/66; PULSE 83; RESP 16; TEMP 36.3
--- NOTE | 2023-03-03 11:11 | PCM.PN.OB ---
Subjective Subjective Patient is doing well. Minimal cramping. She denies chest pain, shortness of breath, leg pain, lightheadedness, dizziness. Lochia is normal. She is pumping. She is tolerating a regular diet without nausea or vomiting. She is ambulating and voiding without difficulty. She is desires discharge today. Objective Data Objective Data Vital Signs: Vital Signs Temp Pulse Resp BP Pulse Ox O2 Del Method 97.4 F L 83 16 100/66 98 Room Air 03/03/23 08:00 03/03/23 08:00 03/03/23 08:00 03/03/23 08:00 03/03/23 01:58 03/03/23 01:58 Oxygen Delivery Method Room Air Weight: 163 lb Body Mass Index (BMI) 27.9 Intake & Output: Intake and Output for Last 24 Hours 03/01/23 03/02/23 03/03/23 23:59 23:59 23:59 Intake Total 2564.17 / 2564.17 Output Total 700 / 700 400 / 400 Balance 1864.17 / 1864.17 -400 / -400 Lab / Micro Data 02/28/23 19:25 Physical Exam Const alert and no apparent distress General Appearance: comfortable Resp normal respiratory effort GI soft to palpation, non-tender and non-distended GI Narrative: FF Extremity normal to inspection and no calf tenderness Assessment & Plan (1) Laceration, obstetrical, second degree: (2) Care and examination of lactating mother: (3) (spontaneous vaginal delivery): PLAN: Patient is day 2 from a vaginal delivery. She is doing well and desires discharge. Home-going instructions reviewed. Has follow-up in the office in 2 weeks.
== END 2023-03-03 14:00 | disposition home or self-care (01) | DRG 807 ==
PROVIDERS: Admitting Provider Advanced Practice Midwife; PCP Internal Medicine; Visit Provider Advanced Practice Midwife
DX: O99.824 Streptococcus B carrier state complicating childbirth (principal); Z37.0 Single live birth; O69.81X0 Labor and delivery complicated by cord around neck, without compression, not applicable or unspecified; O70.1 Second degree perineal laceration during delivery; Z3A.39 39 weeks gestation of pregnancy; Z79.82 Long term (current) use of aspirin
CPT/HCPCS: 59025; 59050; 85025; 86780; 86850; 86900; 86901; 99221; J7120; A4216; G0378; J2405

== ENCOUNTER → 2023-07-19 | Outpatient (CLI) | payer OTHER, SELFPAY ==
--- OUTSIDE RECORDS SUMMARY | 2023-07-19 07:39 | XMS RPT_ITS | CCD ---
Author Name Unknown Address [address] [facility] [address] [place] [address] Organization [facility] Care Team Providers Care Vice President Consulting Services Name Role Phone NON STAFF, DR Unavailable Unavailable JOCELYNE CHAMPAGNE Unavailable JOCELYNE CHAMPAGNE Unavailable KOTA SHANNON Unavailable Unavailable BIMAL ROME Unavailable [employer] PETER Unavailable DICUS, LAURA Unavailable Unavailable DICUS, LAURA Unavailable Unavailable Bentley ELLIS Efewongbe B Primary Care Provider MACHELLE SURESH Attending Unavailable OLEGHE, EFEWONGBE B Primary Care Unavailable OLEGHE, EFEWONGBE B Primary Care Unavailable JUDE GALVAN Attending Unavailable OLEGHE, EFEWONGBE B Primary Care Unavailable JUDE GALVAN Attending Unavailable OLEGHE, EFEWONGBE B Primary Care Unavailable INGA CASTRO Attending Unavail able OLEGHE, EFEWONGBE B Primary Care Unavailable JIMMY TAN Attending Unavailable OLEGHE, EFEWONGBE B Primary Care Unavailable JIMMY TAN Attending Unavailable OLEGHE, EFEWONGBE B Primary Care Unavailable JUDE GALVAN Attending Unavailable OLEGHE, EFEWONGBE B Primary Care Unavailable JUDE GALVAN Attending Unavailable OLEGHE, EFEWONGBE B Primary Care Unavailable OLEGHE, EFEWONGBE B Primary Care Unavailable MACHELLE SURESH Attending Unavailable OLEGHE, EFEWONGBE B Primary Care Unavailable MACHELLE SURESH Attending Unavailable OLEGHE, EFEWONGBE B Primary Care Unavailable INGA CASTRO Referring Unavail able INGA CASTRO Attending Unavail able OLEGHE, EFEWONGBE B Primary Care Unavailable OLEGHE, EFEWONGBE B Referring Unavailable NEYHART DAWSON, INGA Attending Unavail able OLEGHE, EFEWONGBE B Primary Care Unavailable NEYHART DAWSON, INGA Referring Unavail able NEYHART DAWSON, INGA Attending Unavail able OLEGHE, EFEWONGBE B Primary Care Unavailable NEYHART DAWSON, INGA Referring Unavail able STEPHEN MARQUEZ Attending Unavailable OLEGHE, EFEWONGBE B Primary Care Unavailable PLOTPARAMJIT MACHELLE Attending Unavailable OLEGHE, EFEWONGBE B Primary Care Unavailable PLOTTS, MACHELLE Attending Unavailable OLEGHE, EFEWONGBE B Primary Care Unavailable PLOTTS MACHELLE Attending Unavailable OLEGHE, EFEWONGBE B Primary Care Unavailable JUDE GALVAN Attending Unavailable OLEGHE, EFEWONGBE B Primary Care Unavailable JUDE GALVAN Attending Unavailable OLEGHE, EFEWONGBE B Primary Care Unavailable KERWIN MACHELLE Attending Unavailable Allergies Allergy Classification Reported Allergen(s) Allergy Type Date of Onset Reaction(s) Facility (20 sources) Mold Extract; Translations: [MOLD] Drug Allergy 04-12-2005 [facility] (20 sources) Ragweed; Translations: [RAGWEED] Propensity to adverse reactions 04-12-2005 [facility] Medications Completed/Discontinued Medications Medication Drug Class(es) Dates Sig (Normalized) Sig (Original) cyclobenzaprine hydrochloride 10 mg oral tablet (6 sources) Muscle Relaxant Start: 06-01-2017 End: 08-07-2022 take 1 tablet by mouth once daily as needed cyclobenzaprine (FLEXERIL) 10 mg tablet Take 1 tablet by mouth once daily as needed. 0 06/01/2017 08/07/2022 Discontinued Problems Active Problems Problem Classification Problem Date Documented Da te Episodic/Chronic Other complications of (2 sources) Patient encounter status; Translations: [ with inconclusive viability, not applicable or unspecified] Episodic Other complications of (1 source) Spotting per vagina in ; Translations: [Spotting complicating , unspecified trimester] Episodic Residual codes; unclassified (1 source) Gestation period, 12 weeks; Translations: [12 weeks gestation of ] Episodic Residual codes; unclassified (1 source) Gestation period, 14 weeks; Translations: [14 weeks gestation of ] Episodic Residual codes; unclassified (1 source) Gestation period, 17 weeks; Translations: [17 weeks gestation of ] Episodic Residual codes; unclassified (1 source) Gestation period, 18 weeks; Translations: [18 weeks gestation of ] Episodic Residual codes; unclassified (1 source) Gestation period, 19 weeks; Translations: [19 weeks gestation of ] Episodic Residual codes; unclassified (1 source) Gestation period, 21 weeks; Translations: [21 weeks gestation of ] Episodic Residual codes; unclassified (1 source) Gestation period, 25 weeks; Translations: [25 weeks gestation of ] Episodic Residual codes; unclassified (1 source) Gestation period, 27 weeks; Translations: [27 weeks gestation of ] Episodic Residual codes; unclassified (1 source) Gestation period, 29 weeks; Translations: [29 weeks gestation of ] Episodic Residual codes; unclassified (1 source) Gestation period, 31 weeks; Translations: [31 weeks gestation of ] Episodic Residual codes; unclassified (1 source) Gestation period, 33 weeks; Translations: [33 weeks gestation of ] Episodic Residual codes; unclassified (1 source) Gestation period, 37 weeks; Translations: [37 weeks gestation of ] 02-14-2023 Episodic Residual codes; unclassified (1 source) Gestation period, 38 weeks; Translations: [38 weeks gestation of ] 02-19-2023 Episodic Residual codes; unclassified (1 source) Gestation period, 39 weeks; Translations: [39 weeks gestation of ] 02-28-2023 Episodic Unclassified (3 sources) Onset: 03-28-2016 Past or Other Problems Problem Classification Problem Date Documented Da te Episodic/Chronic Bacterial infection; unspecified site (8 sources) Bacteria present; Translations: [Streptococcus, group B, as the cause of diseases classified elsewhere] Onset: 02-07-2023 02-07-2023 Episodic Immunizations and screening for infectious disease (2 sources) Vaccination needed; Translations: [Encounter for immunization] Onset: 12-04-2022 Episodic Other complications of (20 sources) Nausea and vomiting; Translations: [Vomiting of , unspecified] Onset: 08-07-2022 Episodic Other inflammatory condition of skin (20 sources) Erythema nodosum; Translations: [Erythema nodosum] Onset: 12-31-2014 12-31-2014 Episodic Other and delivery including normal (20 sources) Normal ; Translations: [Encounter for supervision of normal first , unspecified trimester] Onset: 08-23-2022 Episodic Residual codes; unclassified (20 sources) Family history of Higuera syndrome; Translations: [Family history of other congenital malformations, deformations and chromosomal abnormalities] Onset: 07-05-2022 07-05-2022 Episodic Residual codes; unclassified (1 source) 35 weeks gestation of ; Translations: [35 weeks gestation of ] Onset: 01-31-2023 Episodic Residual codes; unclassified (1 source) 33 weeks gestation of ; Translations: [33 weeks gestation of ] Onset: 01-17-2023 Episodic Residual codes; unclassified (1 source) 31 weeks gestation of ; Translations: [31 weeks gestation of ] Onset: 01-03-2023 Episodic Residual codes; unclassified (1 source) 29 weeks gestation of ; Translations: [29 weeks gestation of ] Onset: 12-20-2022 Episodic Residual codes; unclassified (1 source) 27 weeks gestation of ; Translations: [27 weeks gestation of ] Onset: 12-04-2022 Episodic Residual codes; unclassified (1 source) 25 weeks gestation of ; Translations: [25 weeks gestation of ] Onset: 11-22-2022 Episodic Residual codes; unclassified (1 source) 21 weeks gestation of ; Translations: [21 weeks gestation of ] Onset: 10-25-2022 Episodic Residual codes; unclassified (1 source) 18 weeks gestation of ; Translations: [18 weeks gestation of ] Onset: 10-04-2022 Episodic Residual codes; unclassified (1 source) 17 weeks gestation of ; Translations: [17 weeks gestation of ] Onset: 09-27-2022 Episodic Residual codes; unclassified (1 source) Family history of other congenital malformations, deformations and chromosomal abnormalities; Translations: [Family history of Higuera syndrome] Onset: 07-05-2022 Episodic Spondylosis; intervertebral disc disorders; other back problems (4 sources) Cervicalgia; Translations: [Low back pain] Onset: 05-05-2016 Episodic Viral infection (20 sources) Infectious mononucleosis; Translations: [Infectious mononucleosis, unspecified without complication] Onset: 10-24-2014 10-24-2014 Episodic Results Test Name Value Interpretation Reference Range Facil ity Vital Signs Date Time Vital Sign Value Performing Clinician Jacques anderson 04-16-2023 09:31-0400 Body weight 64.77 kg Machelle Plotts NEWSPAPER REPORTER.CNM Work Phone: [facility] 04-16-2023 09:31-0400 Diastolic blood pressure 62 mm[Hg] Machelle Plotts NEWSPAPER REPORTER.CNM Work Phone: [facility] 04-16-2023 09:31-0400 Systolic blood pressure 100 mm[Hg] Machelle Plotts NEWSPAPER REPORTER.CNM Work Phone: [facility] 02-28-2023 15:30-0400 Body weight 73.03 kg Machelle Plotts NEWSPAPER REPORTER.CNM Work Phone: [facility] 02-28-2023 15:30-0400 Diastolic blood pressure 77 mm[Hg] Machelle Plotts NEWSPAPER REPORTER.CNM Work Phone: [facility] 02-28-2023 15:30-0400 Systolic blood pressure 116 mm[Hg] Machelle Plotts NEWSPAPER REPORTER.CNM Work Phone: [facility] 02-19-2023 11:11-0400 Body weight 73.03 kg Machelle Plotts NEWSPAPER REPORTER.CNM Work Phone: [facility] 02-19-2023 11:11-0400 Diastolic blood pressure 66 mm[Hg] Machelle Plotts NEWSPAPER REPORTER.CNM Work Phone: [facility] 02-19-2023 11:11-0400 Systolic blood pressure 110 mm[Hg] Machelle Plotts NEWSPAPER REPORTER.CNM Work Phone: [facility] 02-14-2023 14:11-0400 Body weight 73.03 kg Machelle Plotts NEWSPAPER REPORTER.CNM Work Phone: [facility] 02-14-2023 14:11-0400 Diastolic blood pressure 78 mm[Hg] Machelle Plotts NEWSPAPER REPORTER.CNM Work Phone: [facility] 02-14-2023 14:11-0400 Systolic blood pressure 119 mm[Hg] Machelle Suresh NEWSPAPER REPORTER.CNM Work Phone: [facility] 01-17-2023 12:57-0400 Body weight 72.12 kg Machelle Suresh NEWSPAPER REPORTER.CNM Work Phone: [facility] 01-17-2023 12:57-0400 Diastolic blood pressure 76 mm[Hg] Machelle Mackayts NEWSPAPER REPORTER.CNM Work Phone: [facility] 01-17-2023 12:57-0400 Systolic blood pressure 121 mm[Hg] Machelle Mackayts NEWSPAPER REPORTER.CNM Work Phone: [facility] 01-03-2023 13:46-0400 Body weight 71.67 kg Jude Galvan NEWSPAPER REPORTER.CNM Work Phone: [facility] 01-03-2023 13:46-0400 Diastolic blood pressure 72 mm[Hg] Jude Galvan NEWSPAPER REPORTER.CNM Work Phone: [facility] 01-03-2023 13:46-0400 Systolic blood pressure 116 mm[Hg] Jude Galvan NEWSPAPER REPORTER.CNM Work Phone: [facility] 12-20-2022 13:46-0400 Body weight 69.85 kg Jude Galvan NEWSPAPER REPORTER.CNM Work Phone: [facility] 12-20-2022 13:46-0400 Diastolic blood pressure 72 mm[Hg] Jude Galvan NEWSPAPER REPORTER.CNM Work Phone: [facility] 12-20-2022 13:46-0400 Systolic blood pressure 114 mm[Hg] Jude Galvan NEWSPAPER REPORTER.CNM Work Phone: [facility] 12-04-2022 13:45-0400 Body weight 68.49 kg Jude Galvan NEWSPAPER REPORTER.CNM Work Phone: [facility] 12-04-2022 13:45-0400 Diastolic blood pressure 66 mm[Hg] Jude Galvan NEWSPAPER REPORTER.CNM Work Phone: [facility] 12-04-2022 13:45-0400 Systolic blood pressure 108 mm[Hg] Jude Galvan NEWSPAPER REPORTER.CNM Work Phone: [facility] 11-22-2022 14:43-0400 Body weight 68.49 kg Jude Galvan NEWSPAPER REPORTER.CNM Work Phone: [facility] 11-22-2022 14:43-0400 Diastolic blood pressure 74 mm[Hg] Jude Galvan NEWSPAPER REPORTER.CNM Work Phone: [facility] 11-22-2022 14:43-0400 Systolic blood pressure 119 mm[Hg] Jude Galvan NEWSPAPER REPORTER.CNM Work Phone: [facility] 10-25-2022 14:07-0400 Body weight 65.77 kg Jude Galvan NEWSPAPER REPORTER.CNM Work Phone: [facility] 10-25-2022 14:07-0400 Diastolic blood pressure 76 mm[Hg] Jude Galvan NEWSPAPER REPORTER.CNM Work Phone: [facility] 10-25-2022 14:07-0400 Systolic blood pressure 113 mm[Hg] Jude Galvan NEWSPAPER REPORTER.CNM Work Phone: [facility] 10-12-2022 10:05-0400 Body weight 62.14 kg Jimmy Tan MD Work Phone: [facility] 10-12-2022 10:05-0400 Diastolic blood pressure 78 mm[Hg] Jimmy Tan MD Work Phone: [facility] 10-12-2022 10:05-0400 Systolic blood pressure 124 mm[Hg] Jimmy Tan MD Work Phone: [facility] 10-04-2022 15:01-0400 Body weight 63.05 kg Jimmy Tan MD Work Phone: [facility] 10-04-2022 15:01-0400 Diastolic blood pressure 72 mm[Hg] Jimmy Tan MD Work Phone: [facility] 10-04-2022 15:01-0400 Systolic blood pressure 112 mm[Hg] Jimmy Tan MD Work Phone: [facility] 09-27-2022 15:25-0500 Body weight 63.41 kg Machelle Kerwin NEWSPAPER REPORTER.CNM Work Phone: [facility] 09-27-2022 15:25-0500 Diastolic blood pressure 68 mm[Hg] Machelle Suresh NEWSPAPER REPORTER.CNM Work Phone: [facility] 09-27-2022 15:25-0500 Systolic blood pressure 108 mm[Hg] Machelle Suresh NEWSPAPER REPORTER.CNM Work Phone: [facility] 09-06-2022 16:18-0500 Body weight 61.24 kg nIga Dawson MD Work Phone: [facility] 09-06-2022 16:18-0500 Diastolic blood pressure 64 mm[Hg] Inga Dawson MD Work Phone: [facility] 09-06-2022 16:18-0500 Systolic blood pressure 110 mm[Hg] Inga Dawson MD Work Phone: [facility] 08-07-2022 10:25-0500 Body height 163.8 cm Inga Dawson MD Work Phone: [facility] 08-07-2022 10:25-0500 Body weight 58.97 kg Inga Dawson MD Work Phone: [facility] 08-07-2022 10:25-0500 Diastolic blood pressure 64 mm[Hg] Inga Dawson MD Work Phone: [facility] 08-07-2022 10:25-0500 Systolic blood pressure 104 mm[Hg] Inga Dawson MD Work Phone: [facility] Encounters Encounter Date Encounter Type Care Provider Facility Start: 06-26-2023 ambulatory Machelle gongora NEWSPAPER REPORTER.CNM Work Phone: OB/Gynecology Procedures Date Procedure Procedure Detail Performing Clinician Start: 02-28-2023 URINE OB DIP B/O Ron vivi Suresh NEWSPAPER REPORTER.CNM Work Phone: Start: 02-19-2023 URINE OB DIP B/O Courtn vivi Suresh NEWSPAPER REPORTER.CNM Work Phone: Start: 02-14-2023 URINE OB DIP B/O Courtn vivi Suresh NEWSPAPER REPORTER.CNM Work Phone: Start: 01-17-2023 URINE OB DIP B/O Jessic a Galvan NEWSPAPER REPORTER.CNM Work Phone: Start: 01-03-2023 URINE OB DIP B/O Jessic a Galvan NEWSPAPER REPORTER.CNM Work Phone: Start: 12-20-2022 URINE OB DIP B/O Jessic a Galvan NEWSPAPER REPORTER.CNM Work Phone: Start: 12-04-2022 URINE OB DIP B/O Jessic a Galvan NEWSPAPER REPORTER.CNM Work Phone: Start: 11-22-2022 URINE OB DIP B/O Jessic a Galvan NEWSPAPER REPORTER.CNM Work Phone: Start: 10-25-2022 URINE OB DIP B/O Jessic a Galvan NEWSPAPER REPORTER.CNM Work Phone: Start: 10-12-2022 Urnls dip stick/tabl et rgnt auto w/o microscopy Jimmy Tan MD Work Phone: Start: 09-27-2022 URINE OB DIP B/O Jessic a Galvan NEWSPAPER REPORTER.CNM Work Phone: Start: 09-06-2022 URINE OB DIP B/O Inga Dawson MD Work Phone: Start: 08-23-2022 Us nuchal translucency 1st gestation Inga Dawson MD Work Phone: Start: 08-07-2022 Us uterus l imited 1/> fetuses Inga Dawson MD Work Phone: Plan of Treatment Date Care Activity Detail Author Start: 12-04-2032 Urine microalbumin profile [facility] Start: 12-26-2028 Urine microalbumin profile DTAP,TDAP,TD (8 - Td or Tdap) [facility] Start: 08-31-2023 PAP TESTING PAP TESTING [facility] Start: 03-23-2023 Influenza vaccination C [facility] Start: 01-17-2023 End: 01-18-2024 OBSTETRIC ULTRASOUND [facility] OBSTETRIC ULTRASOUND [facility] Anc Imaging Routine 33 weeks gestation of Expected: 01/17/2023, Expires: 01/18/2024 [facility] Work Phone: Immunizations Immunization Date Immunization Notes Care Provider Fa pio 12-04-2022 tetanus toxoid, redu mac diphtheria toxoid, and acellular pertussis vaccine, adsorbed Jude Galvan NEWSPAPER REPORTER.CNM Work Phone: [facility] 05-29-2022 influenza virus vaccine, unspecified formulation Machelle Suresh NEWSPAPER REPORTER.CNM Work Phone: [facility] 12-26-2018 tetanus toxoid, redu mac diphtheria toxoid, and acellular pertussis vaccine, adsorbed Inga Dawson MD Work Phone: [facility] Work Phone: 11-23-2015 varicella virus vaccine Sonu Dawson MD Work Phone: [facility] Work Phone: 05-20-2014 human papilloma viru s vaccine, quadrivalent Inga Dawsno MD Work Phone: [facility] 05-20-2014 influenza, injectabl e, quadrivalent, preservative free Inga Dawson MD Work Phone: [facility] 10-29-2013 human papilloma viru s vaccine, quadrivalent Inga Dawson MD Work Phone: [facility] Work Phone: 08-26-2013 human papilloma viru s vaccine, quadrivalent Inga Dawson MD Work Phone: [facility] Work Phone: 08-26-2013 Meningococcal, MCV4, unspecified conjugate formulation(groups A, C, Y and W-135) Inga Dawson MD Work Phone: [facility] Work Phone: 01-14-2009 Meningococcal, MCV4, unspecified conjugate formulation(groups A, C, Y and W-135) Inga Dawson MD Work Phone: [facility] Work Phone: 01-14-2009 tetanus toxoid, redu mac diphtheria toxoid, and acellular pertussis vaccine, adsorbed Inga Dawson MD Work Phone: [facility] Work Phone: 06-04-2006 influenza virus vaccine, unspecified formulation Inga Dawson MD Work Phone: [facility] Work Phone: 06-20-2005 influenza virus vaccine, unspecified formulation Inga Dawson MD Work Phone: [facility] Work Phone: 06-28-2002 influenza virus vaccine, unspecified formulation Inga Dawson MD Work Phone: [facility] Work Phone: 12-30-2001 diphtheria, tetanus toxoids and acellular pertussis vaccine Inga Dawson MD Work Phone: [facility] Work Phone: 12-30-2001 measles, mumps and rubella virus vaccine Inga Dawson MD Work Phone: [facility] Work Phone: 12-30-2001 poliovirus vaccine, inactivated Inga Dawson MD Work Phone: [facility] Work Phone: 06-22-1999 Chicken Pox (disease) Inga Dawson MD Work Phone: [facility] Work Phone: 06-16-1998 influenza virus vaccine, unspecified formulation Inga Dawson MD Work Phone: [facility] Work Phone: 05-04-1998 diphtheria, tetanus toxoids and acellular pertussis vaccine Inga Dawson MD Work Phone: [facility] Work Phone: 05-04-1998 haemophilus influenz ae type b vaccine, HbOC conjugate Inga Dawson MD Work Phone: [facility] Work Phone: 05-04-1998 influenza virus vaccine, unspecified formulation Inga Dawson MD Work Phone: [facility] Work Phone: 05-04-1998 trivalent poliovirus vaccine, live, oral Inga Dawson MD Work Phone: [facility] Work Phone: 02-01-1998 measles, mumps and rubella virus vaccine Inga Dawson MD Work Phone: [facility] Work Phone: 02-01-1998 varicella virus vaccine Sonu Dawson MD Work Phone: [facility] Work Phone: 1997 diphtheria, tetanus toxoids and acellular pertussis vaccine Inga Dawson MD Work Phone: [facility] Work Phone: 1997 haemophilus influenz ae type b vaccine, HbOC conjugate Inga Dawson MD Work Phone: [facility] Work Phone: 1997 hepatitis B vaccine, pediatric or pediatric/adolescent dosage Inga Dawson MD Work Phone: [facility] Work Phone: 1997 diphtheria, tetanus toxoids and acellular pertussis vaccine Inga Dawson MD Work Phone: [facility] Work Phone: 1997 haemophilus influenz ae type b vaccine, HbOC conjugate Inga Dawson MD Work Phone: [facility] Work Phone: 1997 poliovirus vaccine, inactivated Inga Dawson MD Work Phone: [facility] Work Phone: 1997 diphtheria, tetanus toxoids and acellular pertussis vaccine Inga Dawson MD Work Phone: [facility] Work Phone: 1997 haemophilus influenz ae type b vaccine, HbOC conjugate Inga Dawson MD Work Phone: [facility] Work Phone: 1997 poliovirus vaccine, inactivated Inga Dawson MD Work Phone: [facility] Work Phone: 1997 hepatitis B vaccine, pediatric or pediatric/adolescent dosage Inga Dawson MD Work Phone: [facility] Work Phone: 1997 hepatitis B vaccine, pediatric or pediatric/adolescent dosage Inga Dawson MD Work Phone: [facility] Work Phone: Payers Date Payer Category Payer Private Health Insurance [facility] [id number] 2022-Present [phone] [address] [place] [address] PPO [id number] 2022 Private Health Insurance [id number] 2021 Unknown MMO MMO [employer]PA [id number] 2021-Present [address] [place] [address] PPO [id number] 2021 Unknown [id number] Social History Date Type Detail Facility Unknown if ever smoked [facility] Start: 01-11-2015 Tobacco smoking stat [facility] Never smoked tobacco [facility] Start: 01-11-2015 Tobacco use and exposure Smokeless tobacco non-user [facility] Start: 08-24-2021 End: 04-16-2023 Alcohol intake Current non-drinker of alcohol (finding) [facility] Start: 1995 Sex Assigned At Not on file C [facility] Start: 07-05-2022 Education 17 [facility] Start: 06-10-2021 [facility] Start: 11-22-2022 End: 02-14-2023 History of Social function [facility] Start: 11-22-2022 End: 02-14-2023 Tobacco use panel [facility] National Score (1-10 0), lower number is lower risk 60 [facility] Clinical Notes 05-01-2013 to 06-26-2023 Telephone Encounter - Jude Galvan APRN.CNM - 06/26/2023 2:04 PM ESTTelephone Encounter - Kay Avery LPN - 06/26/2023 10:59 AM Machelle Griffin APRN.CNM - 04/16/2023 9:27 AM EDT Note Date & Type Note Facility 06-26-2023 Miscellaneous Notes Formattin g of this note might be different from the original. Can you send and medication link. Jude Galvan APRN.CNM Please see pt's [email or web address] message and advise. Kay Avery LPN documented in this encounter [facility] 05-02-2023 Miscellaneous Notes Formattin g of this note might be different from the original. Letter created and faxed to number listed in [email or web address] message. Kay Avery LPN Please create letter stating date of delivery, type of delivery, lifting restrictions of 25 lbs. Thank you. aMchelle Suresh APRN.CNM Please review pt's [email or web address] message and advise Kay Avery LPN documented in this encounter [facility] 04-16-2023 Note HNO ID: [id number] Author: Machelle Suresh APRN.CNM Service: ? Author Type: Sheet Writer Type: Progress Notes Filed: 04/16/2023 9:59 AM Note Text: VISIT Melissa Pierre is a 28 year old year old here for visit. Delivery Summary: by CP on 03/01/2023 ROS/ Recovery: Feeding: Breast feeding problems: None Menses since delivery: None Menstrual pattern prior to : Regular periods [place] since delivery: Resumed x 1- painful with insertion Depression: denies symptoms of depression. OB Depression and Anxiety Screening- This Encounter (since 04/15/2023) Over the past 2 weeks have you felt down, depressed, or hopeless? Negative Over the past two weeks, have you felt little interest or pleasure in doing things?? Negative Feeling nervous, anxious or on edge 0-Not at all Not being able to stop or control worrying 0-Not al all Anxiety Pre-Screening Total (If >/= 3 additional questions will be reviewed) 0 Emotional support: Yes Bowel symptoms: Negative for abdominal discomfort, blood in stools or black stools Abdomen: N/A Bladder symptoms: No dysuria, gross hematuria, urinary frequency, urinary urgency, or incontinence Other issues: None Last Pap: 2020 normal HPV: N/A PAST MEDICAL HISTORY Diagnosis Date Mononucleosis 10/27/2014 Scoliosis of cervical spine Unspecified asthma(493.90) has not used inhaler since 2016 PAST SURGICAL HISTORY Procedure Laterality Date EXTRACTION, ERUPTED TOOTH OR EXPOSED ROOT (ELEVATION AND/OR FORCEPS REMOVAL) FAMILY HISTORY Problem Relation Age of Onset Skin Cancer Mother Heart Father triple bypass 50 Lung Cancer Maternal Grandmother other (bladder cancer) Maternal Grandfather No Known Problems Paternal Grandmother Heart Paternal Grandfather Stroke Paternal Grandfather Dementia Paternal Grandfather Social History Tobacco Use Smoking status: Never Smokeless tobacco: Never Vaping Use Vaping Use: Never used Substance Use Topics Alcohol use: No Drug use: No PHYSICAL EXAMINATION: LMP 05/17/2022 GENERAL: pleasant, female in no apparent distress HEENT: Normocephalic, atraumatic, mucus membranes moist, and no lesions NECK: Supple and full range of motion DERMATOLOGY: Normal and without lesions BREAST: soft, non-tender, symmetric, no dominant mass, normal nipple-areolar complex, no lymphadenopathy, and no nipple discharge CHEST: Normal inspiratory effort ABDOMEN: soft, non-tender, and no masses. INCISION: N/A PELVIC: external genitalia normal, normal Bartholin's glands, urethra, Pacific's glands, no vulvar lesions, no cervical lesions, good vaginal support, physiologic discharge present, normal appearing perineal body and perianal region BIMANUAL: uterus normal size, shape and consistency, no adnexal masses, and non-tender NEURO: alert and oriented x3,exam grossly non-focal EXTREMITIES: normal ASSESSMENT AND PLAN: 28 year old status post with normal course. Contraception plan: condoms Follow up: RTC for annual exams and PRN Machelle Suresh APRN.[facility] 04-16-2023 History of Presen t illness Narrative VISIT Melissa Pierre is a 28 year old year old here for visit. Delivery Summary: by FARSHAD on 03/01/2023 ROS/ Recovery: Feeding: Breast feeding problems: None Menses since delivery: None Menstrual pattern prior to : Regular periods [place] since delivery: Resumed x 1- painful with insertion Depression: denies symptoms of depression. OB Depression and Anxiety Screening- This Encounter (since 04/15/2023) Over the past 2 weeks have you felt down, depressed, or hopeless? Negative Over the past two weeks, have you felt little interest or pleasure in doing things? Negative Feeling nervous, anxious or on edge 0-Not at all Not being able to stop or control worrying 0-Not al all Anxiety Pre-Screening Total (If >/= 3 additional questions will be reviewed) 0 Emotional support: Yes Bowel symptoms: Negative for abdominal discomfort, blood in stools or black stools Abdomen: N/A Bladder symptoms: No dysuria, gross hematuria, urinary frequency, urinary urgency, or incontinence Other issues: None Last Pap: 2020 normal HPV: N/A PAST MEDICAL HISTORY Diagnosis Date Mononucleosis 10/27/2014 Scoliosis of cervical spine Unspecified asthma(493.90) has not used inhaler since 2016 PAST SURGICAL HISTORY Procedure Laterality Date EXTRACTION, ERUPTED TOOTH OR EXPOSED ROOT (ELEVATION AND/OR FORCEPS REMOVAL) FAMILY HISTORY Problem Relation Age of Onset Skin Cancer Mother Heart Father triple bypass 50 Lung Cancer Maternal Grandmother other (bladder cancer) Maternal Grandfather No Known Problems Paternal Grandmother Heart Paternal Grandfather Stroke Paternal Grandfather Dementia Paternal Grandfather Social History Tobacco Use Smoking status: Never Smokeless tobacco: Never Vaping Use Vaping Use: Never used Substance Use Topics Alcohol use: No Drug use: No PHYSICAL EXAMINATION: LMP 05/17/2022 GENERAL: pleasant, female in no apparent distress HEENT: Normocephalic, atraumatic, mucus membranes moist, and no lesions NECK: Supple and full range of motion DERMATOLOGY: Normal and without lesions BREAST: soft, non-tender, symmetric, no dominant mass, normal nipple-areolar complex, no lymphadenopathy, and no nipple discharge CHEST: Normal inspiratory effort ABDOMEN: soft, non-tender, and no masses. INCISION: N/A PELVIC: external genitalia normal, normal Bartholin's glands, urethra, Pacific's glands, no vulvar lesions, no cervical lesions, good vaginal support, physiologic discharge present, normal appearing perineal body and perianal region BIMANUAL: uterus normal size, shape and consistency, no adnexal masses, and non-tender NEURO: alert and oriented x3,exam grossly non-focal EXTREMITIES: normal ASSESSMENT AND PLAN: 28 year old status post with normal course. Contraception plan: condoms Follow up: RTC for annual exams and PRN Machelle Suresh APRN.CNM documented in this encounter [facility] 03-14-2023 Note HNO ID: [id number] Author: Machelle Suresh APRN.CNM Service: ? Author Type: Sheet Writer Type: Progress Notes Filed: 03/14/2023 10:06 AM Note Text: EARLY VISIT Melissa Pierre is a 28 year old here for 2 week visit. Delivery Summary: by CP on 03/01/2023 ROS: General: Denies any fever or chills Hypertension Screening: Headache? No. Visual Changes? No Epigastric Pain? No Increased Swelling? No Taking any BP medications at home? No If applicable, monitoring BP at home? (If Yes, include results) NA Mood: normal Depression: denies symptoms of depression. OB Depression and Anxiety Screening- This Encounter (since 03/13/2023) Over the past 2 weeks have you felt down, depressed, or hopeless? Negative Over the past two weeks, have you felt little interest or pleasure in doing things?? Negative Feeling nervous, anxious or on edge 0-Not at all Not being able to stop or control worrying 0-Not al all Anxiety Pre-Screening Total (If >/= 3 additional questions will be reviewed) 0 Feeding: Breast feeding (pumping) problems: Pain with latching. Bladder: No dysuria, gross hematuria, urinary frequency, urinary urgency, or incontinence Bowel symptoms: Negative for abdominal discomfort, blood in stools or black stools Abdomen: N/A Bleeding: light flow Bottom and Perineum: No issues Sleep: no sleep concerns, feels rested [place] since delivery: Not resumed Emotional support: Yes Exercise: N/A Other issues: None PHYSICAL EXAMINATION: LMP 05/17/2022 (Exact Date) General: pleasant,female in no apparent distress, AANDO x 3. Skin warm and intact. Breast: Deferred Abdomen: Deferred /Incision: N/A Pelvic: Deferred Bimanual: Deferred ASSESSMENT AND PLAN: 28 year old status post with normal course. Contraception plan: none. Reinforced 6-week pelvic rest. Encouraged condom usage should patient deviate. Follow up: Return to Clinic for 6 week visit and as needed Machelle Suresh APRN.CNM [facility] 03-14-2023 History of Presen t illness Narrative EARLY VISIT Melissa Pierre is a 28 year old here for 2 week visit. Delivery Summary: by CP on 03/01/2023 ROS: General: Denies any fever or chills Hypertension Screening: Headache? No. Visual Changes? No Epigastric Pain? No Increased Swelling? No Taking any BP medications at home? No If applicable, monitoring BP at home? (If Yes, include results) NA Mood: normal Depression: denies symptoms of depression. OB Depression and Anxiety Screening- This Encounter (since 03/13/2023) Over the past 2 weeks have you felt down, depressed, or hopeless? Negative Over the past two weeks, have you felt little interest or pleasure in doing things? Negative Feeling nervous, anxious or on edge 0-Not at all Not being able to stop or control worrying 0-Not al all Anxiety Pre-Screening Total (If >/= 3 additional questions will be reviewed) 0 Feeding: Breast feeding (pumping) problems: Pain with latching. Bladder: No dysuria, gross hematuria, urinary frequency, urinary urgency, or incontinence Bowel symptoms: Negative for abdominal discomfort, blood in stools or black stools Abdomen: N/A Bleeding: light flow Bottom and Perineum: No issues Sleep: no sleep concerns, feels rested [place] since delivery: Not resumed Emotional support: Yes Exercise: N/A Other issues: None PHYSICAL EXAMINATION: LMP 05/17/2022 (Exact Date) General: pleasant,female in no apparent distress, A&O x 3. Skin warm and intact. Breast: Deferred Abdomen: Deferred /Incision: N/A Pelvic: Deferred Bimanual: Deferred ASSESSMENT AND PLAN: 28 year old status post with normal course. Contraception plan: none. Reinforced 6-week pelvic rest. Encouraged condom usage should patient deviate. Follow up: Return to Clinic for 6 week visit and as needed Machlele Suresh APRN.CNM documented in this encounter [facility] 03-02-2023 Note HNO ID: [id number] Author: Rama Herrera RN Service: ? Author Type: ? Type: Progress Notes Filed: 03/02/2023 8:14 AM Note Text: Patient delivered via at [facility] on 03/01/23 per Machelle Suresh CNM. See OB Outcome note. Rama Herrera RN [facility] 03-02-2023 History of Presen t illness Narrative Patient delivered via at [facility] on 03/01/23 per Machelle Suresh CNM. See OB Outcome note. Rama Herrera RN documented in this encounter [facility] 02-28-2023 Miscellaneous Notes Formattin g of this note might be different from the original. CP- CENTERING Melissa Pierre is a 28 year old female who presents at 39w5d for centering/ routine visit. Not feeling as much movement. Completing kick counts and will feel appropriate amount of movements but feeling increased anxiety over decreased movement. Continues to have irregular contractions. Denies headache, visual changes, chest pain, shortness of breath, vaginal bleeding, leakage of fluid, or dysuria. Requesting induction of labor and CE today. GEN- no acute distress CE- 0.5/50/-2 ASSESSMENT/PLAN: 1. 39 weeks gestation of - ICD9: V22.2, ICD10: Z3A.39 (primary diagnosis) - URINE OB DIP B/O 2. GBS positive 3. Encounter for supervision of normal first in second trimester - ICD9: V22.0, ICD10: Z34.02 - R/B/A to induction of labor reviewed with patient. Questions answered. - Elective Induction scheduled for tonight at 1900. Cytotec 25 mcg PO every 4 hours, Vásquez bulb placement in AM - Start PCN 5 million units IV x 1 then give PCN 3 million units IV every 4 hours until delivery - RR notified of induction RTO- 2 weeks post Machelle Suresh APRN.CNM documented in this encounter [facility] 02-28-2023 Instructions Marlen Rose MA - 02/28/2023 1:17 PM EDT SEQUENTIAL SCREENINGS The [facility] offers sequential screenings for women who are interested in screenings for chromosomal abnormalities and certain defects during a . The sequential screen combines ultrasound and blood tests to determine the risk of chromosomal abnormalities, including Down's Syndrome (Trisomy 21) and Trisomy 18, as well as open neural tube defects including spina bifida. Ultrasound examination is performed between 11 weeks and 13 weeks gestational age. Blood tests are drawn after the ultrasound and again later in the between 15 and 21 weeks gestational age. Please let your physician know if you are interested in this testing. It will require an appointment with our metallurgical or materials technician. This is not an ultrasound performed by a physician in our office during a routine visit. SIGNS AND SYMPTOMS OF LABOR 1. Contractions every 10 minutes or more often 2. Clear, pink, or brownish fluid (water) leaking from vagina 3. Feeling that baby is pushing down, pressure 4. Low, dull backache 5. Cramps that feel like a period 6. Cramps with or without diarrhea If you notice any of the above symptoms, contact our office at [phone] and ask to speak with a nurse. After hours, you can call doctors registry at [phone] OR call [facility] at [phone] and ask to have the doctor monitoring tech paged. If you consider this an emergency, dial or go to your nearest emergency department. NEED HELP? Are you dealing with a violent or abusive relationship? Are you a victim of rape or sexual assult? Call [facility] ([place]) 24 hour Crisis Hotline: 444.614.4792 or 092-643-8928. MANUAL Your Guide to a Healthy manual is now on-line. Visit [email or web address] [email or web address] to download your free copy documented in this encounter [facility] 02-19-2023 Miscellaneous Notes Formattin g of this note might be different from the original. Melissa Pierre is a 28 year old female who presents at 38w3d Estimated Date of Delivery: 03/02/23 for a routine visit. Good movement. C/O regular contractions most of the day yesterday. Did not go in because they are not painful . Some contractions feel stronger than others but able to eat, walk, and sleep. Reviewed labor precautions and kick counts with patient. Denies headache, visual changes, chest pain, shortness of breath, vaginal bleeding, leakage of fluid, or dysuria. Feeling well, no complaints. Size equal to dates. 29 lbs TWG. RTC in 1 week for Centering group or before if needed. Handouts on preparing for labor provided. Patient may desire membrane stripping at 40 weeks. Machelle Suresh APRN.CNM documented in this encounter [facility] 02-19-2023 Instructions Machelle Suresh APRN.CNM - 02/19/2023 11:11 AM EDT Images from the original note were not included. Preparing for labor: Eat dates to promote spontaneous labor! Has an oxytocin-like effect on the body, leading to increased sensitivity of the uterus. Stimulates uterine contractions. Reduces hemorrhage the way oxytocin does. Date fruit contains saturated and unsaturated fatty acids such as oleic, linoleic, and linolenic acids, which are involved in saving and supplying energy and construction of prostaglandins. In addition, serotonin, tannin, and calcium in date fruit contribute to the contraction of smooth muscles of the uterus. Date fruit also has a laxative effect, which stimulates uterine contractions. Six dates per day is the magic number--provided that you re eating smaller deglet noor dates. Deglet noor dates are about 1 inch long. Medjool dates can be up to 2 inches long. If you re eating medjool dates, you only need about 3 dates to reach the 75 grams recommended in the studies. Not sure which type of date you have in your refrigerator? It s probably a deglet noor. How to Eat Dates During Dates are a healthy and delicious snack, so how can you add them to your diet? Add dates during in this awesome oatmeal recipe. Add dates to replace sugar in your favorite recipe or to alexandr your homemade almond milk. Use dates and nuts to make an easy pie crust in the food product inspector. Add soaked dates to homemade nut butter for a sweet treat. Add dates to alexandr homemade salad dressing. Add dates during easily with these yummy (paleo friendly) bars made from dates. What Is Red Raspberry Holley Tea? Red raspberry leaf tea comes from the leaves of the red raspberry plant. This herbal tea has been used for centuries to support respiratory, digestive and uterine health, particularly during and childbearing years. While usually known as a female herb, red raspberry leaf tea can also help support the prostate and various stomach ailments in children. How It Can Help and Red raspberry leaf tea can help to make labor faster and reduce complications and interventions during . One study found that women who consumed RRL tea regularly are less likely to go overdue or give prematurely. These women may also be less likely to receive an artificial rupture of their membranes or require a section, forceps, or vacuum than the women in the control group. Red raspberry leaf has many other benefits to , , and too. How Much Red Raspberry Holley Tea to Drink? With your doctor or director of automation s approval, start with 1 cup of red raspberry leaf tea per day starting in the second trimester. Watch for any uterine cramping or other reactions. If you don t experience any, you can talk to your healthcare provider about increasing to 2 cups per day. Again, watch for any uterine cramping. If you notice any, cut back on your dosage for two weeks and try again. Keep in mind, some moms have irritable uteruses and can only drink red raspberry leaf tea once they reach their due date because of uterine cramping. Is Red Raspberry Holley Tea the Same as Raspberry Holley Tea? How About Plain Old Raspberry Tea? Sometimes. You really need to look at the ingredients to be sure. Note that there is no difference between red raspberry leaf and raspberry leaf. [employer] Car Runner or [employer] Raspberry Holley Tea are two good brands. The red raspberry leaf teas that we recommend are 100% red raspberry leaf. Other teas labeled as raspberry are often a blend of rosehips, hibiscus, raspberry leaves, and raspberry flavor. So they may not be as effective. The teas to avoid are raspberry-flavored herbal teas, which may have ingredients like hibiscus, devorah hips, apples, elderberries, natural and artificial raspberry flavors. Teas like this don t contain raspberry leaf at all and thus won t offer any of the potential benefits of RRLT outlined in this article. The [employer] www.HealthSouk I named this 'circuit' after my friend Fartun Sanches, who shared and discussed it with me when I was working with a client whose labor seemed to be stalled out and no longer progressing... This circuit is useful to help get the baby lined up, ideally, in the Left Occiput Anterior (MARCOS) Position, both before labor begins and when some corrections need to be done during labor. Prenatally, this position set can help to rotate a baby. As a natural method of induction, this can help get things going if baby just needed a gentle nudge of position to set things off. To the best of my knowledge, this group of positions will not hurt a baby that is already lined up correctly. - Dedra Doll Before you Begin..... This circuit takes at least 90 minutes to complete so clear your schedule and make mental preparations so you can relax in your environment. The second step requires a lot of pillows so gather them up before beginning Before starting, you should empty your bladder! Have a nice drink nearby, and make sure it has a straw! If you are having contractions, this circuit should bedone through contractions, try not to change positions between steps Step One: Open-knee Chest Stay in this position for 30 minutes, start in cat/cow, then drop your chest as low as you can to the bed or the floor and your bottom as high as you can. Knees should be fairly wide apart, and the angle between the torso/thighs should be wider than 90 degrees. Wiggle around, prop with lots of pillows and use this time to get totally relaxed. This position allows the baby to scoot out of the pelvis a bit and gives them room to rotate, shift their head position, etc. If the person finds it helpful,careful positioning with a rebozo under the belly, with gentle tension from a support person behindcan help maintain this position for the full 30minutes. Step Two: Exaggerated Left Side Lying Roll to your left side, bringing your top leg as high as possible and keeping your bottom leg straight. Roll forward as much as possible,again using a lot of pillows. Sink into the bed and relax some more. If you fall asleep, that's totally okay and you can stay there! If not, stay here for at least another half an hour. Try and get your top right leg up towards your head and get as rolled over onto your belly as much as possible. If you repeat the circuit during labor, try alternating left and right sides. We know the photo the left is actually right side... just flip the image in your head. Step Three: Moving and Lunges Lunge, walk stairs facing sideways, 2 at a time, (have a parole board member downstairs of you!), take a walk outside with one foot on the curb and the other on the street, sit on a ball and hula- anything that's upright and putting your pelvis in open, asymmetrical positions. Spend at least 30 minutes doing this one as well to give your baby a chance to move down. If you are lunging or stair or curb walking, you should lunge/walk/go up stairs in the direction that feels better to you. The cohen with the lunge is that the toes of the higher leg and mom's belly button should be at right angles. Do not lunge over your knee, that closes the pelvis. Fartun Sanches: Circuit Creator - www.ReFashionerundbirthcollective. SiSaf Dedra Doll CD, BDT (VITA), LCCE, FACCE: Supporting Content - [email or web address] Fanny Matos: Photography - [email or web address] Life [email or web address].SiSaf Khushboolinda Browne CD/CDT (PONCHO): Print and Track Oiler - www.[email or web address].AudienceView Masterminds [employer] www.[email or web address].SiSaf SEQUENTIAL SCREENINGS The [facility] offers sequential screenings for women who are interested in screenings for chromosomal abnormalities and certain defects during a . The sequential screen combines ultrasound and blood tests to determine the risk of chromosomal abnormalities, including Down's Syndrome (Trisomy 21) and Trisomy 18, as well as open neural tube defects including spina bifida. Ultrasound examination is performed between 11 weeks and 13 weeks gestational age. Blood tests are drawn after the ultrasound and again later in the between 15 and 21 weeks gestational age. Please let your physician know if you are interested in this testing. It will require an appointment with our metallurgical or materials technician. This is not an ultrasound performed by a physician in our office during a routine visit. SIGNS AND SYMPTOMS OF LABOR 1. Contractions every 10 minutes or more often 2. Clear, pink, or brownish fluid (water) leaking from vagina 3. Feeling that baby is pushing down, pressure 4. Low, dull backache 5. Cramps that feel like a period 6. Cramps with or without diarrhea If you notice any of the above symptoms, contact our office at [phone] and ask to speak with a nurse. After hours, you can call doctors registry at [phone] OR call [facility] at [phone] and ask to have the doctor monitoring tech paged. If you consider this an emergency, dial 9-1- or go to your nearest emergency department. NEED HELP? Are you dealing with a violent or abusive relationship? Are you a victim of rape or sexual assult? Call [facility] ([place]) 24 hour Crisis Hotline: 382.764.5850 or 917-218-3807. MANUAL Your Guide to a Healthy manual is now on-line. Visit [email or web address] [email or web address] to download your free copy documented in this encounter [facility] 02-14-2023 Instructions Romaine Worthy Cma - 02/14/2023 2:10 PM EDT SEQUENTIAL SCREENINGS The [facility] offers sequential screenings for women who are interested in screenings for chromosomal abnormalities and certain defects during a . The sequential screen combines ultrasound and blood tests to determine the risk of chromosomal abnormalities, including Down's Syndrome (Trisomy 21) and Trisomy 18, as well as open neural tube defects including spina bifida. Ultrasound examination is performed between 11 weeks and 13 weeks gestational age. Blood tests are drawn after the ultrasound and again later in the between 15 and 21 weeks gestational age. Please let your physician know if you are interested in this testing. It will require an appointment with our metallurgical or materials technician. This is not an ultrasound performed by a physician in our office during a routine visit. SIGNS AND SYMPTOMS OF LABOR 1. Contractions every 10 minutes or more often 2. Clear, pink, or brownish fluid (water) leaking from vagina 3. Feeling that baby is pushing down, pressure 4. Low, dull backache 5. Cramps that feel like a period 6. Cramps with or without diarrhea If you notice any of the above symptoms, contact our office at [phone] and ask to speak with a nurse. After hours, you can call doctors registry at [phone] OR call [facility] at [phone] and ask to have the doctor monitoring tech paged. If you consider this an emergency, dial 7-1-6 or go to your nearest emergency department. NEED HELP? Are you dealing with a violent or abusive relationship? Are you a victim of rape or sexual assult? Call [facility] ([facility] 24 hour Crisis Hotline: 612.933.5578 or 919-884-9890. MANUAL Your Guide to a Healthy manual is now on-line. Visit [email or web address] to download your free copy documented in this encounter [facility] 02-14-2023 Miscellaneous Notes Formattin g of this note might be different from the original. CP Giovanniing Melissa Huitron Gabby is a 28 year old female who presents at 37w5d for a routine visit. Was seen in L&D last week for contractions. CE- /-3. Thought she was leaking fluid but ROM plus was negative. Continues to have irregular contractions. Good movement. Denies headache, visual changes,chest pain, shortness of breath, vaginal bleeding, leakage of fluid, or dysuria. Feeling well, no complaints. 28 lbs TWG. Labor precautions reviewed. RTC in 1 week or sooner if needed. Machelle Suresh APRN.CNM documented in this encounter [facility] 01-17-2023 Miscellaneous Notes Formattin g of this note might be different from the original. CP-Centering S: Melissa Pierre is a 27 year old female who presents at 03/02/2023, by Ultrasound Gestational Age: 39w6d for a routine visit. Denies headache, visual changes, chest pain, shortness of breath, vaginal bleeding, leakage of fluid, or dysuria. Feeling well, no complaints. [place] benitez contractions x3 days intermittently O: See flow sheet Gen: No apparent distress Abd: Gravid, nontender ASSESSMENT/PLAN: 1. 33 weeks gestation of P: 1) PTL precautions reviewed and when to call 2) RTO 2 weeks 3) Size less than dates- Growth US ordered Discussed increasing water intake and adding electrolyte drinks Machelle Suresh APRN.CNM documented in this encounter [facility] 01-17-2023 Patience Worthy Cma - 01/17/2023 12:05 PM EDT SEQUENTIAL SCREENINGS The [facility] offers sequential screenings for women who are interested in screenings for chromosomal abnormalities and certain defects during a . The sequential screen combines ultrasound and blood tests to determine the risk of chromosomal abnormalities, including Down's Syndrome (Trisomy 21) and Trisomy 18, as well as open neural tube defects including spina bifida. Ultrasound examination is performed between 11 weeks and 13 weeks gestational age. Blood tests are drawn after the ultrasound and again later in the between 15 and 21 weeks gestational age. Please let your physician know if you are interested in this testing. It will require an appointment with our metallurgical or materials technician. This is not an ultrasound performed by a physician in our office during a routine visit. SIGNS AND SYMPTOMS OF LABOR 1. Contractions every 10 minutes or more often 2. Clear, pink, or brownish fluid (water) leaking from vagina 3. Feeling that baby is pushing down, pressure 4. Low, dull backache 5. Cramps that feel like a period 6. Cramps with or without diarrhea If you notice any of the above symptoms, contact our office at [phone] and ask to speak with a nurse. After hours, you can call doctors registry at [phone] OR call [facility] at [phone] and ask to have the doctor monitoring tech paged. If you consider this an emergency, dial 3-0-0 or go to your nearest emergency department. NEED HELP? Are you dealing with a violent or abusive relationship? Are you a victim of rape or sexual assult? Call [facility] ([place]) 24 hour Crisis Hotline: 276.202.3415 or 710-131-6419. MANUAL Your Guide to a Healthy manual is now on-line. Visit [email or web address] to download your free copy documented in this encounter [facility] 01-03-2023 Note HNO ID: [id number] Author: Jude Galvan APRN.MANSI Service: ? Author Type: Sheet Writer Type: Progress Notes Filed: 01/03/2023 1:54 PM Note Text: CHALO-Centering Group S: Melissa Pierre is a 27 year old female who presents at 31w5d with BELTRAN:03/02/2023, by Ultrasound for a routine visit. Good FM. Denies headache, visual changes, chest pain, shortness of breath, vaginal bleeding, leakage of fluid, or dysuria. Feeling well, no complaints. [place] benitez on and off but not regular. Having constipation and history of anal fissures. O: See flow sheet Gen: No apparent distress Abd: Gravid, nontender S=D, 26 lb TWG ASSESSMENT/PLAN: 1. 31 weeks gestation of 2. Encounter for supervision of normal first in second trimester P: 1) PTL precautions reviewed and when to call 2) RTO in 2 weeks 3) No further cardiac concerns at this time. 4) Fiber supplement and magnesium for constipation. Jude Galvan APRN.CNM [facility] 01-03-2023 [facility] of Presen t [facility] S: Melissa Pierre is a 27 year old female who presents at 31w5d with BELTRAN:03/02/2023, by Ultrasound for a routine visit. Good FM. Denies headache, visual changes, chest pain, shortness of breath, vaginal bleeding, leakage of fluid, or dysuria. Feeling well, no complaints. [place] benitez on and off but not regular. Having constipation and history of anal fissures. O: See flow sheet Gen: No apparent distress Abd: Gravid, nontender S=D, 26 lb TWG ASSESSMENT/PLAN: 1. 31 weeks gestation of 2. Encounter for supervision of normal first in second trimester P: 1) PTL precautions reviewed and when to call 2) RTO in 2 weeks 3) No further cardiac concerns at this time. 4) Fiber supplement and magnesium for constipation. Jude Galvan APRN.CNM documented in this encounter [facility] 01-03-2023 Instructions Jude Galvan APRN.CNM - 01/03/2023 12:47 PM EDT Magnesium citrate 400mg by mouth once a day or 200mg twice daily Pure encapsulated Recommended using Benefiber once having daily BM, along with daily probiotic. 4 grams (2 teaspoons) added to 4 to 8 ounces of liquid or soft food 3 times daily. Recommended starting Miralax daily to induce bowel movemnt Miralax generally will help produce bowel movement in 1-3 days Fill to top of white section in cap which is marked to indicate the correct dose (17 g) Stir and dissolve in any 8 ounces of non-carbonated beverage (cold, hot or room temperature) then drink If diarrhea occurs, reduce usage to every other day Instructed to use Dulcolax as rescue med, only as needed, if Miralax does not produce BM in 3 days SIGNS AND SYMPTOMS OF LABOR 1. Contractions every 10 minutes or more often 2. Clear, pink, or brownish fluid (water) leaking from vagina 3. Feeling that baby is pushing down, pressure 4. Low, dull backache 5. Cramps that feel like a period 6. Cramps with or without diarrhea If you notice any of the above symptoms, contact our office at [phone] and ask to speak with a nurse. After hours, you can call doctors registry at [phone] OR call [facility] at [phone] and ask to have the doctor monitoring tech paged. If you consider this an emergency, dial [phone] or go to your nearest emergency department. NEED HELP? Are you dealing with a violent or abusive relationship? Are you a victim of rape or sexual assult? Call [facility] ([place]) 24 hour Crisis Hotline: 465.671.9651 or 110-667-1299. MANUAL Your Guide to a Healthy manual is now on-line. Visit [email or web address] to download your free copy documented in this encounter [facility] 12-24-2022 Miscellaneous Notes Formattin g of this note might be different from the original. CHALO-S: Melissa Pierre is a 27 year old female who presents at 30w2d with BELTRAN:03/02/2023, by Ultrasound 39w6d for a routine visit. Good FM. Denies headache, visual changes, chest pain, shortness of breath, vaginal bleeding, leakage of fluid, or dysuria. Feeling well, no complaints. Seen and 48 hr holter monitor. O: See flow sheet Gen: No apparent distress Abd: Gravid, nontender S=D, 22lb TWG ASSESSMENT/PLAN: 1. 29 weeks gestation of P: 1) PTL precautions reviewed and when to call 2) RTO in 2 weeks 3) Seen cardiology, will request records Jude Galvan APRN.CNM documented in this encounter [facility] 12-20-2022 Note HNO ID: [id number] Author: Jude Galvan APRN.CNM Service: ? Author Type: Sheet Writer Type: Progress Notes Filed: 12/24/2022 9:53 PM Note Text: [facility] 12-20-2022 History of Presen t illness Narrative documented in this encounter [facility] 12-20-2022 Patience Worthy Cma - 12/20/2022 9:54 AM EDT SEQUENTIAL SCREENINGS The [facility] offers sequential screenings for women who are interested in screenings for chromosomal abnormalities and certain defects during a . The sequential screen combines ultrasound and blood tests to determine the risk of chromosomal abnormalities, including Down's Syndrome (Trisomy 21) and Trisomy 18, as well as open neural tube defects including spina bifida. Ultrasound examination is performed between 11 weeks and 13 weeks gestational age. Blood tests are drawn after the ultrasound and again later in the between 15 and 21 weeks gestational age. Please let your physician know if you are interested in this testing. It will require an appointment with our metallurgical or materials technician. This is not an ultrasound performed by a physician in our office during a routine visit. SIGNS AND SYMPTOMS OF LABOR 1. Contractions every 10 minutes or more often 2. Clear, pink, or brownish fluid (water) leaking from vagina 3. Feeling that baby is pushing down, pressure 4. Low, dull backache 5. Cramps that feel like a period 6. Cramps with or without diarrhea If you notice any of the above symptoms, contact our office at [phone] and ask to speak with a nurse. After hours, you can call doctors registry at [phone] OR call [facility] at [phone] and ask to have the doctor monitoring tech paged. If you consider this an emergency, dial or go to your nearest emergency department. NEED HELP? Are you dealing with a violent or abusive relationship? Are you a victim of rape or sexual assult? Call [facility] ([place]) 24 hour Crisis Hotline: 556.723.6454 or 432-112-0062. MANUAL Your Guide to a Healthy manual is now on-line. Visit [email or web address] to download your free copy documented in this encounter [facility] 12-04-2022 Note HNO ID: [id number] Author: Romaine Worthy Cma Service: ? Author Type: ? Type: Progress Notes Filed: 12/04/2022 3:17 PM Note Text: Patient identified by name and date of . Melissa Pierre presents today for a vaccination of Tdap. Patient denies an allergy to latex: yes Patient denies a severe (life-threatening) allergy to a previous dose of Tdap, DTP, DTaP, DT or Td vaccine. Yes Patient denies history of epilepsy or neurological problems: Yes Patient is afebrile and denies being moderately or severely ill: Yes Patient denies history of Guillain-[place] Syndrome (a severe paralytic illness): Yes Tdap Adacel injection was given without incident. See immunizations for details of immunizations administered today. VIS sheet provided: Yes Provider Jude Galvan CNM was present in office at time of injection. Romaine Worthy Cma [facility] 12-04-2022 History of Presen t illness Narrative Patient identified by name and date of . Melissa Pierre presents today for a vaccination of Tdap. Patient denies an allergy to latex: yes Patient denies a severe (life-threatening) allergy to a previous dose of Tdap, DTP, DTaP, DT or Td vaccine. Yes Patient denies history of epilepsy or neurological problems: Yes Patient is afebrile and denies being moderately or severely ill: Yes Patient denies history of Guillain-[place] Syndrome (a severe paralytic illness): Yes Tdap Adacel injection was given without incident. See immunizations for details of immunizations administered today. VIS sheet provided: Yes Provider Jude Galvan CNM was present in office at time of injection. Romaine Wotrhy Cma documented in this encounter [facility] 12-04-2022 Miscellaneous Notes Formattin g of this note might be different from the original. CHALO-S: Melissa Pierre is a 27 year old female who presents at 27w3d with BELTRAN: 03/02/2023, by Ultrasound for a routine visit. Centering patient but here today for care between groups. Good FM. Denies headache, visual changes, chest pain, shortness of breath, vaginal bleeding, leakage of fluid, or dysuria. Feeling well, no complaints. O: See flow sheet Gen: No apparent distress Heart: RRR with ectopic beats, no murmur, HR 90 Abd: Gravid, nontender S=D, 19 lb TWG ASSESSMENT/PLAN: 1. 27 weeks gestation of - Having palpitations with SOB, dizziness, and racing heartbeat. Discussed normal physiological changes in and also concerns for other pathological issues. Continue hydration and compression stockings. Referral to cardiology or primary care for soonest appointment. If unable to get in to reach out and we can help find a provider. If worsens to call sooner or ED. Discussed SOB with palpitation vs SOB/air hunger concerns for PE. She voiced understanding. - 1 hour GCT, CBC, and RPR completed at [facility] and normal - TDAP today - LARC form reviewed and signed at last visit. Patient declines - Depression screen negative on 11/22/22 - Opioid screen negative - plan form discussed and given to patient. - PTL precautions and kick counts reviewed - RTO- 2 weeks or sooner if needed Jude Galvan APRN.CNM documented in this encounter [facility] 12-04-2022 Instructions Jude Galvan APRN.CNM - 12/04/2022 1:25 PM EDT Elevated heart rate, palpitations, shortness of breath, dizziness Appointment with Cardiology or primary care. Please ask them to send records. I can send referral if needed. SIGNS AND SYMPTOMS OF LABOR 1. Contractions every 10 minutes or more often 2. Clear, pink, or brownish fluid (water) leaking from vagina 3. Feeling that baby is pushing down, pressure 4. Low, dull backache 5. Cramps that feel like a period 6. Cramps with or without diarrhea If you notice any of the above symptoms, contact our office at [phone] and ask to speak with a nurse. After hours, you can call doctors registry at [phone] OR call [facility] at [phone] and ask to have the doctor monitoring tech paged. If you consider this an emergency, dial [phone] or go to your nearest emergency department. NEED HELP? Are you dealing with a violent or abusive relationship? Are you a victim of rape or sexual assult? Call [facility] ([place]) 24 hour Crisis Hotline: 776.832.1840 or 830-427-0239. MANUAL Your Guide to a Healthy manual is now on-line. Visit [email or web address] to download your free copy documented in this encounter [facility] 11-22-2022 Note HNO ID: [id number] Author: Jude Galvan APRN.CNM Service: ? Author Type: Sheet Writer Type: Progress Notes Filed: 11/22/2022 4:57 PM Note Text: CHALO-S: Melissa Pierre is a 27 year old female who presents at 25w5d with BELTRAN:03/02/2023, by Ultrasound for a routine visit.Good FM. Denies headache, visual changes, chest pain, shortness of breath, vaginal bleeding, leakage of fluid, or dysuria. Feeling well, no complaints. Had some palpitations, no SOB or dizziness when standing at work. O: See flow sheet Gen: No apparent distress Abd: Gravid, nontender S=D ASSESSMENT/PLAN: 1. 25 weeks gestation of P: 1) PTL precautions reviewed and when to call 2) RTO in 2 weeks 3) 1hr GCT, CBC, and RPR next visit. Order given for [facility] 4) plan given 5) Depression screen negative 6) Recommend increased hydration and compression stockings when at work. If becomes more symptomatic will recommend PCP or cardiology. 7) Tdap next visit. Jude Galvan APRN.MANSI [facility] 11-22-2022 Instructions Romaine Worthy Cma - 11/22/2022 1:18 PM EDT SEQUENTIAL SCREENINGS The [facility] offers sequential screenings for women who are interested in screenings for chromosomal abnormalities and certain defects during a . The sequential screen combines ultrasound and blood tests to determine the risk of chromosomal abnormalities, including Down's Syndrome (Trisomy 21) and Trisomy 18, as well as open neural tube defects including spina bifida. Ultrasound examination is performed between 11 weeks and 13 weeks gestational age. Blood tests are drawn after the ultrasound and again later in the between 15 and 21 weeks gestational age. Please let your physician know if you are interested in this testing. It will require an appointment with our metallurgical or materials technician. This is not an ultrasound performed by a physician in our office during a routine visit. SIGNS AND SYMPTOMS OF LABOR 1. Contractions every 10 minutes or more often 2. Clear, pink, or brownish fluid (water) leaking from vagina 3. Feeling that baby is pushing down, pressure 4. Low, dull backache 5. Cramps that feel like a period 6. Cramps with or without diarrhea If you notice any of the above symptoms, contact our office at [phone] and ask to speak with a nurse. After hours, you can call doctors registry at [phone] OR call [facility] at [phone] and ask to have the doctor monitoring tech paged. If you consider this an emergency, dial 9-0-5 or go to your nearest emergency department. NEED HELP? Are you dealing with a violent or abusive relationship? Are you a victim of rape or sexual assult? Call [facility] ([place]) 24 hour Crisis Hotline: 439.965.8277 or 631-509-0053. MANUAL Your Guide to a Healthy manual is now on-line. Visit [email or web address] to download your free copy documented in this encounter [facility] 11-22-2022 History of Presen t illness Narrative CHALO-S: Melissa Pierre is a 27 year old female who presents at 25w5d with BELTRAN:03/02/2023, by Ultrasound for a routine visit.Good FM. Denies headache, visual changes, chest pain, shortness of breath, vaginal bleeding, leakage of fluid, or dysuria. Feeling well, no complaints. Had some palpitations, no SOB or dizziness when standing at work. O: See flow sheet Gen: No apparent distress Abd: Gravid, nontender S=D ASSESSMENT/PLAN: 1. 25 weeks gestation of P: 1) PTL precautions reviewed and when to call 2) RTO in 2 weeks 3) 1hr GCT, CBC, and RPR next visit. Order given for [facility] 4) plan given 5) Depression screen negative 6) Recommend increased hydration and compression stockings when at work. If becomes more symptomatic will recommend PCP or cardiology. 7) Tdap next visit. Jude Galvan APRN.CNM documented in this encounter [facility] 10-25-2022 Instructions Romaine Worthy [facility] - 10/25/2022 2:08 PM EDT SEQUENTIAL SCREENINGS The [facility] offers sequential screenings for women who are interested in screenings for chromosomal abnormalities and certain defects during a . The sequential screen combines ultrasound and blood tests to determine the risk of chromosomal abnormalities, including Down's Syndrome (Trisomy 21) and Trisomy 18, as well as open neural tube defects including spina bifida. Ultrasound examination is performed between 11 weeks and 13 weeks gestational age. Blood tests are drawn after the ultrasound and again later in the between 15 and 21 weeks gestational age. Please let your physician know if you are interested in this testing. It will require an appointment with our metallurgical or materials technician. This is not an ultrasound performed by a physician in our office during a routine visit. SIGNS AND SYMPTOMS OF LABOR 1. Contractions every 10 minutes or more often 2. Clear, pink, or brownish fluid (water) leaking from vagina 3. Feeling that baby is pushing down, pressure 4. Low, dull backache 5. Cramps that feel like a period 6. Cramps with or without diarrhea If you notice any of the above symptoms, contact our office at [phone] and ask to speak with a nurse. After hours, you can call doctors registry at [phone] OR call [facility] at [phone] and ask to have the doctor monitoring tech paged. If you consider this an emergency, dial 9-1-1 or go to your nearest emergency department. NEED HELP? Are you dealing with a violent or abusive relationship? Are you a victim of rape or sexual assult? Call [facility] ([place]) 24 hour Crisis Hotline: 308.182.6615 or 841-669-2859. MANUAL Your Guide to a Healthy manual is now on-line. Visit [email or web address] to download your free copy documented in this encounter [facility] 10-25-2022 Miscellaneous Notes Formattin g of this note might be different from the original. CHALO-S: Centering Group visit Melissa Pierre is a 27 year old female who presents at 21w5d with with BELTRAN:03/02/2023, by Ultrasound for a routine visit. Good FM. Denies headache, visual changes, chest pain, shortness of breath, vaginal bleeding, leakage of fluid, or dysuria. Feeling well, no complaints. O: See flow sheet Gen: No apparent distress Abd: Gravid, nontender S=D, 13 lb TWG P: 1) PTL precautions reviewed and when to call 2) RTO in 4 weeks 3) Anatomy completed at [facility] 4) Reviewed CBE and education 5) 1hr GCT, CBC, and RPR 26-28 weeks Jude Galvan APRN.CNM documented in this encounter [facility] 10-12-2022 Miscellaneous Notes Addended by: GIANNA HANDY MA on: 10/12/2022 10:35 AM Modules accepted: Orders RR_ Had some spotting this am, only when wiped. No cramping or trauma. PE- yellow/clear mucous discharge w/ minimal pink tinge, cervix mildly friable, large ectropion Feel spotting from this. No dysuria or UTI symptoms, UA neg except for trace blood. Pelvic rest/light activit for2-3 days, call if any changes in symptoms Jimmy Tan MD documented in this encounter [facility] 10-12-2022 Instructions Gianna Handy Wi - 10/12/2022 10:05 AM EDT SEQUENTIAL SCREENINGS The [facility] offers sequential screenings for women who are interested in screenings for chromosomal abnormalities and certain defects during a . The sequential screen combines ultrasound and blood tests to determine the risk of chromosomal abnormalities, including Down's Syndrome (Trisomy 21) and Trisomy 18, as well as open neural tube defects including spina bifida. Ultrasound examination is performed between 11 weeks and 13 weeks gestational age. Blood tests are drawn after the ultrasound and again later in the between 15 and 21 weeks gestational age. Please let your physician know if you are interested in this testing. It will require an appointment with our metallurgical or materials technician. This is not an ultrasound performed by a physician in our office during a routine visit. SIGNS AND SYMPTOMS OF LABOR 1. Contractions every 10 minutes or more often 2. Clear, pink, or brownish fluid (water) leaking from vagina 3. Feeling that baby is pushing down, pressure 4. Low, dull backache 5. Cramps that feel like a period 6. Cramps with or without diarrhea If you notice any of the above symptoms, contact our office at [phone] and ask to speak with a nurse. After hours, you can call doctors registry at [phone] OR call [facility] at [phone] and ask to have the doctor monitoring tech paged. If you consider this an emergency, dial 9-5 or go to your nearest emergency department. NEED HELP? Are you dealing with a violent or abusive relationship? Are you a victim of rape or sexual assult? Call [facility] ([place]) 24 hour Crisis Hotline: 416.788.9782 or 932-613-6299. MANUAL Your Guide to a Healthy manual is now on-line. Visit [email or web address] to download your free copy documented in this encounter [facility] 10-10-2022 Note HNO ID: [id number] Author: Rama Herrera RN Service: ? Author Type: ? Type: Progress Notes Filed: 10/10/2022 8:14 AM Note Text: Please review Anatomy US done at [facility] Scan on 10/09/2022 7:45 PM by External Provider: Ultrasound [facility] 10-10-2022 History of Presen t illness Narrative Please review Anatomy US done at [facility] Scan on 10/09/2022 7:45 PM by External Provider: Ultrasound documented in this encounter [facility] 10-09-2022 Miscellaneous Notes Formattin g of this note might be different from the original. 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 Kay Avery LPN FMLA completed and placed on providers desk for signature. Kay Avery LPN Mychart message to pt asking for beginning date of her leave and her return to work date. Kay Avery LPN documented in this encounter [facility] 10-04-2022 Miscellaneous Notes Formattin g of this note might be different from the original. RR- No VB/LOF. Some flutters. Anatomy scan ordered at [facility]. F/u in 4 weeks or prn. Jimmy Tan MD documented in this encounter [facility] 09-27-2022 Note HNO ID: [id number] Author: Marlen Rose MA Service: ? Author Type: Food Mixer Type: Progress Notes Filed: 09/27/2022 5:36 PM Note Text: [facility] 09-27-2022 Miscellaneous Notes Formattin g of this note might be different from the original. CP-S: Melissa Pierre is a 27 year old female who presents at 17w5d with BELTRAN: 03/02/2023, by Ultrasound routine for a routine visit. Denies headache, visual changes, chest pain, shortness of breath, vaginal bleeding, leakage of fluid, or dysuria. Feeling well, no complaints. Positive movement. O: See flow sheet Gen: No apparent distress Abd: Gravid, nontender ASSESSMENT/PLAN: 1. 17 weeks gestation of 2. Encounter for supervision of normal first in second trimester 3. Family history of Higuera syndrome P: 1) PTL precautions reviewed and when to call 2) RTO in 4 weeks 3) Anatomy US scheduled. Machelle Suresh APRN.CNM documented in this encounter [facility] 09-27-2022 Instructions Marlen Rose MA - 09/27/2022 3:25 PM EST SEQUENTIAL SCREENINGS The [facility] offers sequential screenings for women who are interested in screenings for chromosomal abnormalities and certain defects during a . The sequential screen combines ultrasound and blood tests to determine the risk of chromosomal abnormalities, including Down's Syndrome (Trisomy 21) and Trisomy 18, as well as open neural tube defects including spina bifida. Ultrasound examination is performed between 11 weeks and 13 weeks gestational age. Blood tests are drawn after the ultrasound and again later in the between 15 and 21 weeks gestational age. Please let your physician know if you are interested in this testing. It will require an appointment with our metallurgical or materials technician. This is not an ultrasound performed by a physician in our office during a routine visit. SIGNS AND SYMPTOMS OF LABOR 1. Contractions every 10 minutes or more often 2. Clear, pink, or brownish fluid (water) leaking from vagina 3. Feeling that baby is pushing down, pressure 4. Low, dull backache 5. Cramps that feel like a period 6. Cramps with or without diarrhea If you notice any of the above symptoms, contact our office at [phone] and ask to speak with a nurse. After hours, you can call doctors registry at [phone] OR call [facility] at [phone] and ask to have the doctor monitoring tech paged. If you consider this an emergency, dial 9-1-0 or go to your nearest emergency department. NEED HELP? Are you dealing with a violent or abusive relationship? Are you a victim of rape or sexual assult? Call [facility] ([place]) 24 hour Crisis Hotline: 966.888.5237 or 633-879-0814. MANUAL Your Guide to a Healthy manual is now on-line. Visit [email or web address] to download your free copy documented in this encounter [facility] 09-27-2022 History of Presen t illness Narrative documented in this encounter [facility] 09-06-2022 Miscellaneous Notes Formattin g of this note might be different from the original. DM- Pt doing well today. Denies Vaginal Bleeding, Leaking fluid, or cramping. Still with some Nausea and sickness in morning- otherwise feeling better. ANatomy us at [facility] order placed. Labs reviewed. ASA to start. Inga Dumont MD documented in this encounter [facility] 09-06-2022 Instructions Milly Vega Ma - 09/06/2022 4:17 PM EST SEQUENTIAL SCREENINGS The [facility] offers sequential screenings for women who are interested in screenings for chromosomal abnormalities and certain defects during a . The sequential screen combines ultrasound and blood tests to determine the risk of chromosomal abnormalities, including Down's Syndrome (Trisomy 21) and Trisomy 18, as well as open neural tube defects including spina bifida. Ultrasound examination is performed between 11 weeks and 13 weeks gestational age. Blood tests are drawn after the ultrasound and again later in the between 15 and 21 weeks gestational age. Please let your physician know if you are interested in this testing. It will require an appointment with our metallurgical or materials technician. This is not an ultrasound performed by a physician in our office during a routine visit. SIGNS AND SYMPTOMS OF LABOR 1. Contractions every 10 minutes or more often 2. Clear, pink, or brownish fluid (water) leaking from vagina 3. Feeling that baby is pushing down, pressure 4. Low, dull backache 5. Cramps that feel like a period 6. Cramps with or without diarrhea If you notice any of the above symptoms, contact our office at [phone] and ask to speak with a nurse. After hours, you can call doctors registry at [phone] OR call [facility] at [phone] and ask to have the doctor monitoring tech paged. If you consider this an emergency, dial 9-1-8 or go to your nearest emergency department. NEED HELP? Are you dealing with a violent or abusive relationship? Are you a victim of rape or sexual assult? Call [facility] ([place]) 24 hour Crisis Hotline: 262.345.6001 or 719-783-2121. MANUAL Your Guide to a Healthy manual is now on-line. Visit [email or web address] to download your free copy documented in this encounter [facility] 08-31-2022 Miscellaneous Notes Formattin g of this note might be different from the original. Refill request received via [employer]. Patient 13w6d, next appointment on 09/06/22. Nai Torres RN documented in this encounter [facility] 08-14-2022 Miscellaneous Notes Formattin g of this note might be different from the original. Previous order was sent to [facility] 07/31/2022- 30 tablets no refills. Patient requesting [facility] pharmacy. Pt 11w3d documented in this encounter [facility] 08-07-2022 Note HNO ID: [id number] Author: Inga Dawson MD Service: ? Author Type: Physician Type: Progress Notes Filed: 08/07/2022 11:31 AM Note Text: OB point of care ultrasound was performed. See imaging tab for details. Inga Dumont MD [facility] 08-07-2022 Note HNO ID: [id number] Author: Inga Dawson MD Service: ? Author Type: Physician Type: Progress Notes Filed: 08/07/2022 11:17 AM Note Text: INITIAL OB ASSESSMENT OB Provider: Inga Dawson MD HPI: Melissa Pierre is a 27 year old female here to establish Obstetrical Care. Patient's last menstrual period was 05/17/2022 (exact date). from OB Dating Form. Cycle length: 35 days Complaints: nausea and vomiting was planned. OB History T0 L0 SAB0 IAB0 Ectopic0 Multiple0 Live Births0 Prior : never History of 4th degree laceration: No Patient's Risk Screening for delivery: History of abnormal pap: No Prior treatment for cervical dysplasia: none. 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 prental multivitamin 27 mg iron- 800 mcg tablet Take 1 tablet by mouth once daily. fluticasone (FLONASE) 50 mcg/actuation nasal spray Use 1 [place] in each nostril daily at bedtime. cyclobenzaprine (FLEXERIL) 10 mg tablet Take 1 tablet by mouth once daily as needed. (Patient not taking: Reported on 07/05/2022) No current facility-administered medications on file prior to visit. Review of Systems: GENERAL: Negative for: Fever or Chills HEENT: Negative for: Headache, Impaired Vision, Ringing in Ears, Nosebleeds NECK: Negative for: Swelling, Pain, Stiffness RESPIRATORY: Negative for: Cough, Shortness of breath, Wheezing GASTROINTESTINAL: Negative for: Heartburn, Constipation, Diarrhea, Blood in stool, Vomiting MUSCULOSKELETAL: Negative for: Muscle or joint pain, stiffness, Joint swelling NEUROLOGIC/PSYCHIATRIC: Negative for: Weakness, Paralysis, Numbness, Tingling, Tremor, Anxiety, Depression, Memory loss SKIN: Negative for: Rash, Itching GENITOURINARY: Negative for: vaginal itching, vaginal discharge, hematuria or dysuria PHYSICAL EXAM: BP 104/64 Ht 5' 4.5 (1.64m) Wt 130 lb (59.0kg) LMP 05/17/2022 BMI 21.98 kg/(m2). GENERAL: pleasant female in no apparent distress DERMATOLOGY: Normal, without lesions, non-icteric, and non-hirsute NECK: Supple, full range of motion, no adenopathy, and thyroid normal BREAST: soft, non-tender, symmetric, no dominant mass, normal nipple-areolar complex, no lymphadenopathy, and no nipple discharge ABDOMEN: soft, non-tender, and no masses NEURO: alert and oriented x3,exam grossly non-focal PELVIS: External genitalia normal without lesions. Perineal body intact. No vaginal or cervical lesions. Cervix closed. Uterus 10 week size. No adnexal masses or tenderness. Clinical Pelvimetry: Pelvimetry clinically assessed as adequate Limited OB ultrasound exam: single intrauterine and positive cardiac activity OB Risk Screening: Completed, no positive findings documented. SBIRT Melissa Pierre was given the 4P's screening tool. Melissa answered as follows: OB Opioid Screening - Last Recorded (since 11/10/2021) Did any of your parents have a problem with alcohol or other drug use? Yes father-ETOH Does your partner have a problem with alcohol or other drug use? No In the past, have you had difficulties in your life because of alcohol or other drugs, including prescription medications? No In the past month have you drunk any alcohol or used other drugs? No Are you taking medication for pain during the either prescribed or not? No Based on the screen and further questions, she is considered at Low risk due to:No past or current use. Positive reinforcement of current behavior. Plan to rescreen early third trimester. Inga Dumont MD ASSESSMENT: 27 year old at 10.3 wks gestational age PLAN: 1) Patient oriented to practice. Discussed nutrition, folic acid supplementation, dietary guidelines, exercise, smoking, alcohol, caffeine, and drug use. Discussed routine OB labs including STD/HIV. Discussed aneuploidy screening options including serum screening and nuchal translucency. Patient declines all aneuploidy screening. Would like NT 2) Phenergan for Nausea Follow up in 4 weeks or sooner prn. Inga Miranda (more content not included)... [facility] 08-07-2022 History of Presen t illness Narrative OB point of care ultrasound was performed. See imaging tab for details. Inga Dumont MD documented in this encounter [facility] 08-07-2022 Miscellaneous Notes Formattin g of this note might be different from the original. DM- new OB. Wants NT but likely no other screening. Labs and Ultrasounds at [facility]. Phenergan for Nausea. RTO 4 wks. Start ASA next visit. Inga Dumont MD documented in this encounter [facility] 08-07-2022 History of Presen t illness Narrative Images from the original note were not included. INITIAL OB ASSESSMENT OB Provider: Inga Dawson MD HPI: Melissa Pierre is a 27 year old female here to establish Obstetrical Care. Patient's last menstrual period was 05/17/2022 (exact date). from OB Dating Form. Cycle length: 35 days Complaints: nausea and vomiting was planned. OB History T0 L0 SAB0 IAB0 Ectopic0 Multiple0 Live Births0 Prior : never History of 4th degree laceration: No Patient's Risk Screening for delivery: History of abnormal pap: No Prior treatment for cervical dysplasia: none. 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 prental multivitamin 27 mg iron- 800 mcg tablet Take 1 tablet by mouth once daily. fluticasone (FLONASE) 50 mcg/actuation nasal spray Use 1 [place] in each nostril daily at bedtime. cyclobenzaprine (FLEXERIL) 10 mg tablet Take 1 tablet by mouth once daily as needed. (Patient not taking: Reported on 07/05/2022) No current facility-administered medications on file prior to visit. Review of Systems: GENERAL: Negative for: Fever or Chills HEENT: Negative for: Headache, Impaired Vision, Ringing in Ears, Nosebleeds NECK: Negative for: Swelling, Pain, Stiffness RESPIRATORY: Negative for: Cough, Shortness of breath, Wheezing GASTROINTESTINAL: Negative for: Heartburn, Constipation, Diarrhea, Blood in stool, Vomiting MUSCULOSKELETAL: Negative for: Muscle or joint pain, stiffness, Joint swelling NEUROLOGIC/PSYCHIATRIC: Negative for: Weakness, Paralysis, Numbness, Tingling, Tremor, Anxiety, Depression, Memory loss SKIN: Negative for: Rash, Itching GENITOURINARY: Negative for: vaginal itching, vaginal discharge, hematuria or dysuria PHYSICAL EXAM: BP 104/64 Ht 5' 4.5 (1.64m) Wt 130 lb (59.0kg) LMP 05/17/2022 BMI 21.98 kg/(m^2). GENERAL: pleasant female in no apparent distress DERMATOLOGY: Normal, without lesions, non-icteric, and non-hirsute NECK: Supple, full range of motion, no adenopathy, and thyroid normal BREAST: soft, non-tender, symmetric, no dominant mass, normal nipple-areolar complex, no lymphadenopathy, and no nipple discharge ABDOMEN: soft, non-tender, and no masses NEURO: alert and oriented x3,exam grossly non-focal PELVIS: External genitalia normal without lesions. Perineal body intact. No vaginal or cervical lesions. Cervix closed. Uterus 10 week size. No adnexal masses or tenderness. Clinical Pelvimetry: Pelvimetry clinically assessed as adequate Limited OB ultrasound exam: single intrauterine and positive cardiac activity OB Risk Screening: Completed, no positive findings documented. SBIRT Melissa Sanchezquhar was given the 4's screening tool. Melissa answered as follows: OB Opioid Screening - Last Recorded (since 11/10/2021) Did any of your parents have a problem with alcohol or other drug use? Yes father-ETOH Does your partner have a problem with alcohol or other drug use? No In the past, have you had difficulties in your life because of alcohol or other drugs, including prescription medications? No In the past month have you drunk any alcohol or used other drugs? No Are you taking medication for pain during the either prescribed or not? No Based on the screen and further questions, she is considered at Low risk due to:No past or current use. Positive reinforcement of current behavior. Plan to rescreen early third trimester. Inga Dumont MD ASSESSMENT: 27 year old at 10.3 wks gestational age PLAN: 1) Patient oriented to practice. Discussed nutrition, folic acid supplementation, dietary guidelines, exercise, smoking, alcohol, caffeine, and drug use. Discussed routine OB labs including STD/HIV. Discussed aneuploidy screening options including serum screening and nuchal translucency. Patient declines all aneuploidy screening. Would like NT 2) Phenergan for Nausea Follow up in 4 weeks or sooner prn. Inga Dumont MD documented in this encounter [facility] 08-07-2022 Instructions Milly Vega Ma - 08/07/2022 10:07 AM EST Please select the following link to access the [facility] Your Guide to a Healthy . [email or web address] documented in this encounter [facility] 07-31-2022 Miscellaneous Notes Formattin g of this note might be different from the original. ordered Has NOB on 08/07 documented in this encounter [facility] 07-05-2022 Miscellaneous Notes Formattin g of this note might be different from the original. DISTANCE HEALTH VISIT This Team Access Model visit is a phone encounter. It required patient-provider interaction for the medical decision making as documented below. Patient and have been attempting for the last 11 months. Used ovulation predictor kit. Patient has a first cousin with Higuera syndrome. Patient considering nuchal ultrasound and genetic carrier screening testing.Contact information for [employer] and [employer] rep given to patient to check on insurance coverage. Sarah Thrasher RN documented in this encounter [facility] 06-26-2022 Miscellaneous Notes Formattin g of this note might be different from the original. Spoke to patient. She did not get repeat hcg quant done. States she has been taking daily UPT and the line has progressively gotten darker quicker each day. Only having intermittent mild cramping that last about 30 seconds when it does occur. Declines wanting further quants done. PNOB and NOB scheduled. Advised to call if further problems arise prior to visit. Marifer Ray RN . Hcg quant received from [facility]. Await 2nd quant on 06/24/22. 06/22/22 69 Marifer Ray RN documented in this encounter [facility] 06-22-2022 Miscellaneous Notes Formattin g of this note might be different from the original. Pt notified. Kay Avery LPN Signed. Pt calling and stated that her LMP 05/17/22, she got positive test yesterday and today. Pt wanting quants done at [facility] prior to scheduling any appointments. Please see pended orders and sign. Form can then be faxed to [facility]. Kay Avery LPN documented in this encounter [facility] documented as of this encounter (statuses as of 06/22/2022) [facility] History of Past illness Narrative* Problem Noted Date Resolved Date Mild concussion 05/01/2013 10/24/2014 Back strain 02/10/2013 10/24/2014 documented as of this encounter (statuses as of 06/26/2022) [facility] History of Past illness Narrative* Problem Noted Date Resolved Date Mild concussion 05/01/2013 10/24/2014 Back strain 02/10/2013 10/24/2014 documented as of this encounter (statuses as of 07/05/2022) [facility] History of Past illness Narrative* Problem Noted Date Resolved Date Mild concussion 05/01/2013 10/24/2014 Back strain 02/10/2013 10/24/2014 documented as of this encounter (statuses as of 07/05/2022) [facility] of Past illness Narrative* Problem Noted Date Resolved Date Mild concussion 05/01/2013 10/24/2014 Back strain 02/10/2013 10/24/2014 documented as of this encounter (statuses as of 07/31/2022) [facility] of Past illness Narrative* Problem Noted Date Resolved Date Mild concussion 05/01/2013 10/24/2014 Back strain 02/10/2013 10/24/2014 documented as of this encounter (statuses as of 08/07/2022) [facility] of [facility] illness Narrative* Problem Noted Date Resolved Date Mild concussion 05/01/2013 10/24/2014 Back strain 02/10/2013 10/24/2014 documented as of this encounter (statuses as of 08/07/2022) [facility] of Past illness Narrative* Problem Noted Date Resolved Date Mild concussion 05/01/2013 10/24/2014 Back strain 02/10/2013 10/24/2014 documented as of this encounter (statuses as of 08/14/2022) [facility] of [facility] illness Narrative* Problem Noted Date Resolved Date Mild concussion 05/01/2013 10/24/2014 Back strain 02/10/2013 10/24/2014 documented as of this encounter (statuses as of 08/23/2022) [facility] of [facility] illness Narrative* Problem Noted Date Resolved Date Mild concussion 05/01/2013 10/24/2014 Back strain 02/10/2013 10/24/2014 documented as of this encounter (statuses as of 08/31/2022) [facility] of [facility] illness Narrative* Problem Noted Date Resolved Date Mild concussion 05/01/2013 10/24/2014 Back strain 02/10/2013 10/24/2014 documented as of this encounter (statuses as of 09/07/2022) [facility] of [facility] Narrative* Problem Noted Date Resolved Date Mild concussion 05/01/2013 10/24/2014 Back strain 02/10/2013 10/24/2014 documented as of this encounter (statuses as of 09/12/2022) [facility] of [facility] Narrative* Problem Noted Date Resolved Date Mild concussion 05/01/2013 10/24/2014 Back strain 02/10/2013 10/24/2014 documented as of this encounter (statuses as of 09/28/2022) [facility] Narrative* Problem Noted Date Resolved Date Mild concussion 05/01/2013 10/24/2014 Back strain 02/10/2013 10/24/2014 documented as of this encounter (statuses as of 10/04/2022) [facility] of [facility] Narrative* Problem Noted Date Resolved Date Mild concussion 05/01/2013 10/24/2014 Back strain 02/10/2013 10/24/2014 documented as of this encounter (statuses as of 10/10/2022) [facility] of [facility] Narrative* Problem Noted Date Resolved Date Mild concussion 05/01/2013 10/24/2014 Back strain 02/10/2013 10/24/2014 documented as of this encounter (statuses as of 10/10/2022) [facility] of [facility] Narrative* Problem Noted Date Resolved Date Mild concussion 05/01/2013 10/24/2014 Back strain 02/10/2013 10/24/2014 documented as of this encounter (statuses as of 10/12/2022) [facility] of [facility] Narrative* Problem Noted Date Resolved Date Mild concussion 05/01/2013 10/24/2014 Back strain 02/10/2013 10/24/2014 documented as of this encounter (statuses as of 10/31/2022) [facility] of [facility] Narrative* Problem Noted Date Resolved Date Mild concussion 05/01/2013 10/24/2014 Back strain 02/10/2013 10/24/2014 documented as of this encounter (statuses as of 11/23/2022) [facility] of [facility] Narrative* Problem Noted Date Resolved Date Mild concussion 05/01/2013 10/24/2014 Back strain 02/10/2013 10/24/2014 documented as of this encounter (statuses as of 12/05/2022) [facility] of [facility] Narrative* Problem Noted Date Resolved Date Mild concussion 05/01/2013 10/24/2014 Back strain 02/10/2013 10/24/2014 documented as of this encounter (statuses as of 12/25/2022) [facility] History of Past illness Narrative* Problem Noted Date Resolved Date Mild concussion 05/01/2013 10/24/2014 Back strain 02/10/2013 10/24/2014 documented as of this encounter (statuses as of 01/04/2023) [facility] History of Past illness Narrative* Problem Noted Date Resolved Date Mild concussion 05/01/2013 10/24/2014 Back strain 02/10/2013 10/24/2014 documented as of this encounter (statuses as of 01/18/2023) [facility] History of Past illness Narrative* Problem Noted Date Diagnosed Date Resolved Date Mild concussion 05/01/2013 10/24/2014 Back strain 02/10/2013 10/24/2014 documented as of this encounter (statuses as of 02/14/2023) [facility] History of Past illness Narrative* Problem Noted Date Diagnosed Date Resolved Date Mild concussion 05/01/2013 10/24/2014 Back strain 02/10/2013 10/24/2014 documented as of this encounter (statuses as of 02/19/2023) [facility] History of Past illness Narrative* Problem Noted Date Diagnosed Date Resolved Date Mild concussion 05/01/2013 10/24/2014 Back strain 02/10/2013 10/24/2014 documented as of this encounter (statuses as of 03/01/2023) [facility] History of Past illness Narrative* Problem Noted Date Diagnosed Date Resolved Date Mild concussion 05/01/2013 10/24/2014 Back strain 02/10/2013 10/24/2014 documented as of this encounter (statuses as of 03/02/2023) [facility] History of Past illness Narrative* Problem Noted Date Diagnosed Date Resolved Date Mild concussion 05/01/2013 10/24/2014 Back strain 02/10/2013 10/24/2014 documented as of this encounter (statuses as of 03/14/2023) [facility] History of Past illness Narrative* Problem Noted Date Diagnosed Date Resolved Date Mild concussion 05/01/2013 10/24/2014 Back strain 02/10/2013 10/24/2014 documented as of this encounter (statuses as of 04/16/2023) [facility] History of Past illness Narrative* Problem Noted Date Diagnosed Date Resolved Date Mild concussion 05/01/2013 10/24/2014 Back strain 02/10/2013 10/24/2014 documented as of this encounter (statuses as of 05/02/2023) [facility] History of Past illness Narrative* Problem Noted Date Diagnosed Date Resolved Date Mild concussion 05/01/2013 10/24/2014 Back strain 02/10/2013 10/24/2014 documented as of this encounter (statuses as of 06/27/2023) [facility] note* Diagnosis Supervision of normal first , antepartum- Primary Family history of Higuera syndrome Family history of congenital anomalies [facility] Diagnosis Encounter for supervision of normal first in first trimester- Primary Supervision of normal first Early stage of state, incidental Nausea and vomiting in Unspecified vomiting of , unspecified as to episode of care [facility] Diagnosis Encounter to determine viability of , single or unspecified fetus- Primary Encounter for supervision of normal first in first trimester Supervision of normal first Early stage of state, incidental [facility] Diagnosis Encounter for (NT) nuchal translucency scan- Primary Other specified screening Encounter for supervision of normal first in first trimester Supervision of normal first 12 weeks gestation of state, incidental [facility] Diagnosis Encounter for supervision of normal first in second trimester- Primary Supervision of normal first 14 weeks gestation of state, incidental [facility] Diagnosis 17 weeks gestation of - Primary state, incidental Encounter for supervision of normal first in second trimester Supervision of normal first Family history of Higuera syndrome Family history of congenital anomalies [facility] Diagnosis 18 weeks gestation of - Primary state, incidental Encounter for supervision of normal first in second trimester Supervision of normal first [facility] Diagnosis 19 weeks gestation of - Primary state, incidental Encounter for supervision of normal first in second trimester Supervision of normal first Spotting during Spotting complicating , unspecified as to episode of care or not applicable [facility] Diagnosis Family history of Higuera syndrome- Primary Family history of congenital anomalies 21 weeks gestation of state, incidental Encounter for supervision of normal first in second trimester Supervision of normal first [facility] Diagnosis 25 weeks gestation of - Primary state, incidental Encounter for supervision of normal first in second trimester Supervision of normal first [facility] Diagnosis 27 weeks gestation of - Primary state, incidental Need for vaccination Need for prophylactic vaccination and inoculation against unspecified single disease [facility] Diagnosis 29 weeks gestation of - Primary state, incidental [facility] Diagnosis 31 weeks gestation of - Primary state, incidental Encounter for supervision of normal first in second trimester Supervision of normal first Family history of Higuera syndrome Family history of congenital anomalies [facility] Diagnosis 33 weeks gestation of - Primary state, incidental [facility] Diagnosis Family history of Higuera syndrome- Primary Family history of congenital anomalies 37 weeks gestation of state, incidental [facility] Diagnosis 38 weeks gestation of - Primary state, incidental [facility] Diagnosis 39 weeks gestation of - Primary state, incidental Family history of Higuera syndrome Family history of congenital anomalies Encounter for supervision of normal first in second trimester Supervision of normal first [facility] Diagnosis 2 weeks follow-up- Primary care and examination of lactating mother [facility] Diagnosis care and examination- Primary Routine follow-up documented in this encounter [facility] for referral (narrative)* Diagnostic Procedure Only (Routine) - Authorized Specialty Diagnoses / Procedures Referred By Contac t Referred To Contact [facility] Diagnoses Encounter for supervision of normal first in first trimester Procedures NUCHAL TRANSLUCENCY WHI US NUCHAL TRANSLUCENCY 1ST GESTATION Inga Castro MD [address] [place] [address] [address] Referral ID Status Reason Start Date Expiration Date Visits Requested Visits Authorized [id number] Authorized Auto-Generat ed Referral 08/07/2022 08/07/2023 1 1 * Diagnostic Procedure Only (Routine) - Pending Review Specialty Diagnoses / Procedures Referred By Contac t Referred To Contact [facility] Diagnoses Encounter for supervision of normal first in first trimester Procedures OBSTETRIC ULTRASOUND WHI US PREG UTERUS AFTER 1ST TRIMEST GESTATION Inga Castro MD [address] [place] [address] [facility] [address] [place] [address] Referral ID Status Reason Start Date Expiration Date Visits Requested Visits Authorized [id number] Pending Review Auto-Generat ed Referral 08/07/2022 08/07/2023 1 1 [facility] for referral (narrative)* Diagnostic Procedure Only (Routine) - Pending Review Specialty Diagnoses / Procedures Referred By Contac t Referred To Contact [facility] Diagnoses 33 weeks gestation of Procedures OBSTETRIC ULTRASOUND WHI US PREG UTERUS AFTER 1ST TRIMEST GESTATION Machelle Suresh APRN.CN [address] [place] [address] [facility] [address] [place] [id number] Referral ID Status Reason Start Date Expiration Date Visits Requested Visits Authorized [id number] Pending Review Auto-Generat ed Referral 01/17/2023 01/17/2024 1 1 [facility] Course Discharge Summary No Discharge Summary Informa tion Discharge Instructions Discharge Instructions No Discharge Instructions Summary Purpose Family History No Family History Records FoundNo Family History Records Found Advance Directives No Advanced Directives Records FoundNo Advanced Directives Records Found Health Concerns Problem Noted Date OB Reminders 08/07/2022 Problem Noted Date OB Reminders 08/07/2022 Problem Noted Date OB Reminders 08/07/2022 Problem Noted Date OB Reminders 08/07/2022 Problem Noted Date OB Reminders 08/07/2022 Problem Noted Date OB Reminders 08/07/2022 Problem Noted Date OB Reminders 08/07/2022 Problem Noted Date OB Reminders 08/07/2022 Problem Noted Date OB Reminders 08/07/2022 Problem Noted Date OB Reminders 08/07/2022 Problem Noted Date OB Reminders 08/07/2022 Problem Noted Date Diagnosed Date OB Reminders 08/07/2022 Problem Noted Date Diagnosed Date OB Reminders 08/07/2022 Problem Noted Date Diagnosed Date OB Reminders 08/07/2022 Problem Noted Date Diagnosed Date OB Reminders 08/07/2022 Problem Noted Date Diagnosed Date OB Reminders 08/07/2022 Problem Noted Date Diagnosed Date OB Reminders 08/07/2022 Additional Source Comments INFORMATION SOURCE (unrecogn ized section and content) DATE CREATED AUTHOR AUTHOR'S ORGANIZ ATION 06/14/2023 [facility] Source Comments (unrecognize d section and content) In the event this informatio n is protected by the Federal Confidentiality of Alcohol and Drug Abuse Patient Records regulations: The Federal rules restrict any use of the information to criminally investigate or prosecute any alcohol or drug abuse patient.[facility] event this information is protected by the Federal Confidentiality of Alcohol and Drug Abuse Patient Records regulations: The Federal rules restrict any use of the information to criminally investigate or prosecute any alcohol or drug abuse patient.[facility] the event this information is protected by the Federal Confidentiality of Alcohol and Drug Abuse Patient Records regulations: The Federal rules restrict any use of the information to criminally investigate or prosecute any alcohol or drug abuse patient.[facility] the event this information is protected by the Federal Confidentiality of Alcohol and Drug Abuse Patient Records regulations: The Federal rules restrict any use of the information to criminally investigate or prosecute any alcohol or drug abuse patient.[facility] the event this information is protected by the Federal Confidentiality of Alcohol and Drug Abuse Patient Records regulations: The Federal rules restrict any use of the information to criminally investigate or prosecute any alcohol or drug abuse patient.[facility] the event this information is protected by the Federal Confidentiality of Alcohol and Drug Abuse Patient Records regulations: The Federal rules restrict any use of the information to criminally investigate or prosecute any alcohol or drug abuse patient.[facility] the event this information is protected by the Federal Confidentiality of Alcohol and Drug Abuse Patient Records regulations: The Federal rules restrict any use of the information to criminally investigate or prosecute any alcohol or drug abuse patient.[facility] the event this information is protected by the Federal Confidentiality of Alcohol and Drug Abuse Patient Records regulations: The Federal rules restrict any use of the information to criminally investigate or prosecute any alcohol or drug abuse patient.[facility] the event this information is protected by the Federal Confidentiality of Alcohol and Drug Abuse Patient Records regulations: The Federal rules restrict any use of the information to criminally investigate or prosecute any alcohol or drug abuse patient.[facility] the event this information is protected by the Federal Confidentiality of Alcohol and Drug Abuse Patient Records regulations: The Federal rules restrict any use of the information to criminally investigate or prosecute any alcohol or drug abuse patient.[facility] the event this information is protected by the Federal Confidentiality of Alcohol and Drug Abuse Patient Records regulations: The Federal rules restrict any use of the information to criminally investigate or prosecute any alcohol or drug abuse patient.[facility] the event this information is protected by the Federal Confidentiality of Alcohol and Drug Abuse Patient Records regulations: The Federal rules restrict any use of the information to criminally investigate or prosecute any alcohol or drug abuse patient.[facility] the event this information is protected by the Federal Confidentiality of Alcohol and Drug Abuse Patient Records regulations: The Federal rules restrict any use of the information to criminally investigate or prosecute any alcohol or drug abuse patient.[facility] the event this information is protected by the Federal Confidentiality of Alcohol and Drug Abuse Patient Records regulations: The Federal rules restrict any use of the information to criminally investigate or prosecute any alcohol or drug abuse patient.[facility] the event this information is protected by the Federal Confidentiality of Alcohol and Drug Abuse Patient Records regulations: The Federal rules restrict any use of the information to criminally investigate or prosecute any alcohol or drug abuse patient.[facility] the event this information is protected by the Federal Confidentiality of Alcohol and Drug Abuse Patient Records regulations: The Federal rules restrict any use of the information to criminally investigate or prosecute any alcohol or drug abuse patient.[facility] the event this information is protected by the Federal Confidentiality of Alcohol and Drug Abuse Patient Records regulations: The Federal rules restrict any use of the information to criminally investigate or prosecute any alcohol or drug abuse patient.[facility] the event this information is protected by the Federal Confidentiality of Alcohol and Drug Abuse Patient Records regulations: The Federal rules restrict any use of the information to criminally investigate or prosecute any alcohol or drug abuse patient.[facility] the event this information is protected by the Federal Confidentiality of Alcohol and Drug Abuse Patient Records regulations: The Federal rules restrict any use of the information to criminally investigate or prosecute any alcohol or drug abuse patient.[facility] the event this information is protected by the Federal Confidentiality of Alcohol and Drug Abuse Patient Records regulations: The Federal rules restrict any use of the information to criminally investigate or prosecute any alcohol or drug abuse patient.[facility] the event this information is protected by the Federal Confidentiality of Alcohol and Drug Abuse Patient Records regulations: The Federal rules restrict any use of the information to criminally investigate or prosecute any alcohol or drug abuse patient.[facility] the event this information is protected by the Federal Confidentiality of Alcohol and Drug Abuse Patient Records regulations: The Federal rules restrict any use of the information to criminally investigate or prosecute any alcohol or drug abuse patient.[facility] the event this information is protected by the Federal Confidentiality of Alcohol and Drug Abuse Patient Records regulations: The Federal rules restrict any use of the information to criminally investigate or prosecute any alcohol or drug abuse patient.[facility] the event this information is protected by the Federal Confidentiality of Alcohol and Drug Abuse Patient Records regulations: The Federal rules restrict any use of the information to criminally investigate or prosecute any alcohol or drug abuse patient.[facility] the event this information is protected by the Federal Confidentiality of Alcohol and Drug Abuse Patient Records regulations: The Federal rules restrict any use of the information to criminally investigate or prosecute any alcohol or drug abuse patient.[facility] the event this information is protected by the Federal Confidentiality of Alcohol and Drug Abuse Patient Records regulations: The Federal rules restrict any use of the information to criminally investigate or prosecute any alcohol or drug abuse patient.[facility] the event this information is protected by the Federal Confidentiality of Alcohol and Drug Abuse Patient Records regulations: The Federal rules restrict any use of the information to criminally investigate or prosecute any alcohol or drug abuse patient.[facility] the event this information is protected by the Federal Confidentiality of Alcohol and Drug Abuse Patient Records regulations: The Federal rules restrict any use of the information to criminally investigate or prosecute any alcohol or drug abuse patient.[facility] the event this information is protected by the Federal Confidentiality of Alcohol and Drug Abuse Patient Records regulations: The Federal rules restrict any use of the information to criminally investigate or prosecute any alcohol or drug abuse patient.[facility] the event this information is protected by the Federal Confidentiality of Alcohol and Drug Abuse Patient Records regulations: The Federal rules restrict any use of the information to criminally investigate or prosecute any alcohol or drug abuse patient.[facility] the event this information is protected by the Federal Confidentiality of Alcohol and Drug Abuse Patient Records regulations: The Federal rules restrict any use of the information to criminally investigate or prosecute any alcohol or drug abuse patient.[facility] Reason for Visit (unrecogniz ed section and content) Reason Comments Results Reason Comments Care Specialty Diagnoses / Procedures Referred By Heiid t Referred To Contact [employer] 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 LEADER Diagnoses telemed PNOB- LMP 05/17, but states she ovulated 06/10 Procedures OFFICE/OUTPATIENT ESTABLISHED LOW MDM 20-29 MIN WHI NURSE Self Wstr, Nurse Pnob [facility] [address] [place] [address] Referral ID Status Reason Start Date Expiration Date Visits Re quested Visits Authorized [id number] Closed 07/05/2022 07/22/2022 1 1 Reason Comments Initial OB Visit Specialty Diagnoses / Procedures Referred By Contac t Referred To Contact [employer] PHYSICIAN LEADER Diagnoses NOB WHISBIRT Procedures NEW WHI OB 1ST EXAM Juan Hagan MD [address] [place] [address] Inga Castro MD [address] [place] [address] Referral ID Status Reason Start Date Expiration Date Visits Re quested Visits Authorized [id number] Closed 08/07/2022 11/05/2022 1 1 Reason Onset Date Comments Refill Request 08/14/2022 Reason Comments US Specialty Diagnoses / Procedures Referred By Heidi t Referred To Contact [facility] Diagnoses Encounter for supervision of normal first in first trimester Procedures NUCHAL TRANSLUCENCY WHI US NUCHAL TRANSLUCENCY 1ST GESTATION Inga Castro MD [address] [place] [address] [facility] [address] [place] [address] Referral ID Status Reason Start Date Expiration Date V isits Requested Visits Authorized [id number] Closed Auto-Generate d Referral 08/07/2022 08/07/2023 1 1 Reason Onset Date Comments Refill Request 08/31/2022 Reason Onset Date Comments Care 09/06/2022 Reason Onset Date Comments Care 09/27/2022 Reason Comments Results Anatomy US Reason Onset Date Comments Care 10/12/2022 Reason Onset Date Comments Care 10/25/2022 Reason Onset Date Comments Care 11/22/2022 Reason Onset Date Comments Care 12/04/2022 Reason Onset Date Comments Care 12/20/2022 Reason Onset Date Comments Care 01/03/2023 Reason Onset Date Comments Care 01/17/2023 Reason Onset Date Comments Care 02/14/2023 Reason Onset Date Comments Care 02/19/2023 Reason Onset Date Comments Care 02/28/2023 Reason Comments Ob Delivery Note Reason Comments Early Reason Comments Routine Care Teams (unrecognized sec tion and content) [employer] Relationship Specialty Start Date End Date Juan Hagan MD PCP - General Internal Medicine 12/26/18 [employer] Relationship Specialty Start Date End Date Juan Hagan MD PCP - General Internal Medicine 12/26/18 [employer] Relationship Specialty Start Date End Date Juan Hagan MD PCP - General Internal Medicine 12/26/18 [employer] Relationship Specialty Start Date End Date Juan Hagan MD PCP - General Internal Medicine 12/26/18 [employer] Relationship Specialty Start Date End Date Juan Hagan MD PCP - General Internal Medicine 12/26/18 [employer] Relationship Specialty Start Date End Date Juan Hagan MD PCP - General Internal Medicine 12/26/18 [employer] Relationship Specialty Start Date End Date Juan Hagan MD PCP - General Internal Medicine 12/26/18 [employer] Relationship Specialty Start Date End Date Juan Hagan MD PCP - General Internal Medicine 12/26/18 [employer] Relationship Specialty Start Date End Date Juan Hagan MD PCP - General Internal Medicine 12/26/18 [employer] Relationship Specialty Start Date End Date Juan Hagan MD PCP - General Internal Medicine 12/26/18 [employer] Relationship Specialty Start Date End Date Juan Hagan MD PCP - General Internal Medicine 12/26/18 [employer] Relationship Specialty Start Date End Date Juan Hagan MD PCP - General Internal Medicine 12/26/18 [employer] Relationship Specialty Start Date End Date Juan Hagan MD PCP - General Internal Medicine 12/26/18 [employer] Relationship Specialty Start Date End Date Juan Hagan MD PCP - General Internal Medicine 12/26/18 [employer] Relationship Specialty Start Date End Date Juan Hagan MD PCP - General Internal Medicine 12/26/18 [employer] Relationship Specialty Start Date End Date Juan Hagan MD PCP - General Internal Medicine 12/26/18 [employer] Relationship Specialty Start Date End Date Juan Hagan MD PCP - General Internal Medicine 12/26/18 [employer] Relationship Specialty Start Date End Date Juan Hagan MD PCP - General Internal Medicine 12/26/18 [employer] Relationship Specialty Start Date End Date Juan Hagan MD PCP - General Internal Medicine 12/26/18 [employer] Relationship Specialty Start Date End Date Juan Hagan MD PCP - General Internal Medicine 12/26/18 [employer] Relationship Specialty Start Date End Date Juan Hagan MD PCP - General Internal Medicine 12/26/18 FOR RECORDS PERTAINING TO PATIENTS WHO ARE OR HAVE BEEN ENROLLED IN A CHEMICAL DEPENDENCY/SUBSTANCEABUSE PROGRAM, SOME INFORMATION MAY BE OMITTED. This clinical summary was aggregated from multiple sources. Caution should be exercised in using it in the provision of clinical care. This summary normalizes information from multiple sources, and as a consequence, information in this document may materially change the coding, format and clinical context of patient data. In addition, data may be omitted in some cases. CLINICAL DECISIONS SHOULD BE BASED ON THE PRIMARY CLINICAL RECORDS. [facility]. provides no warranty or guarantee of the accuracy or completeness of information in this document.
[2023-07-19 08:56] LABS: AST(SGOT) 17 U/L (15-37); Alanine Aminotransfer ALT/SGPT 33 U/L (13-56); Albumin, Serum 3.8 g/dL (3.2-5.0); Alkaline Phosphatase 90 U/L (45-117); Anion Gap 5 (5-15); BUN 16 mg/dL (7-18); BUN/Creat Ratio 26.5 RATIO (10-20); Calcium,Total 9.2 mg/dL (8.5-10.1); Chloride 107 mmol/L (98-107); EST Glomerular Filtration Rate 127 mL/min (>60); Est Glom Filt Rate - Afr Amer 154 mL/min (>60); Globulin 3.7 g/dL (2.2-4.2); Glucose 89 mg/dL (74-106); Potassium 4.4 mmol/L (3.5-5.1); Protein, Total 7.5 g/dL (6.4-8.2); Sodium Level 141 mmol/L (136-145)
== END | disposition home or self-care (01) ==
LOC: LAB 07:36
PROVIDERS: PCP Internal Medicine; Referring Provider Internal Medicine; Visit Provider Internal Medicine
DX: R74.8 Abnormal levels of other serum enzymes (principal)
CPT/HCPCS: 36415; 80053

== ENCOUNTER 2025-01-30 20:05 | Inpatient (IN) | payer OTHER, SELFPAY ==
[2025-01-30] VITALS (7 sets, daily range): BP systolic 105–121; BP diastolic 59–69; PULSE 90–117; RESP 16; TEMP 37.4; O2SAT 91–99; BMI 29.0
--- OUTSIDE RECORDS SUMMARY | 2025-01-30 20:40 | XMS RPT_ITS | CCD ---
Author Organization [facility] Care Team Providers Care Control Officer Name Role Phone NON STAFF, Unavailable Unavailable JOCELYNE CHAMPAGNE Unavailable JOCELYNE CHAMPAGNE Unavailable KOTA SHANNON Unavailable Unavailable BIMAL ROME Unavailable APICBIMAL ROLAND Unavailable DICUSLAURA Unavailable Unavailable LAURA MCKEON Unavailable Unavailable Dr. Yousif Hagan Primary Care Provider 1(33 0) Dr. Yousif Hagan Attending Provider 1(330)2 Dr. Yousif Hagan Referring Provider 1(330)2 Yousif Hagan MD Primary Care Provider 1(3 30) Dr. Yousif Hagan Primary Care Provider 1(33 0) Dr. Yousif Hagan Attending Provider 1(330)2 Dr. Yousif Hagan Referring Provider 1(330)2 ARI Palmer Attending Provider Unavailab Dr. Enid Tejada Attending Provider 1(330)- Dr. Yousif Hagan Primary Care Provider 1(33 0) Dr. Yousif Hagan Referring Provider 1(330)2 Dr. Yousif Hagan Primary Care Provider 1(33 0) Dr. Yousif Hagan Referring Provider 1(330)2 Dr. Enid Aquino Attending Provider 1(330) Dr. Yousif Hagan Primary Care Provider 1(33 0) Dr. Yousif Hagan Referring Provider 1(330)2 Miles, Dr. Rossi Attending Provider 1(330) Dr. Yousif Hagan Attending Provider 1(330)2 Jean, Dr. Daniel Attending Provider 1(330)- Jean, Dr. Daniel Referring Provider 1(330) Dr. Yousif Hagan Primary Care Provider 1(33 0) Bentley, Dr. Martinez Referring Provider 1(330)2 Miles, Dr. Rossi Attending Provider 1(330) Dr. Yousif Hagan Primary Care Provider 1(33 0) Bentley, Dr. Martinez Referring Provider 1(330)2 Miles, Dr. Rossi Attending Provider 1(330) Dr. Yousif Hagan Attending Provider 1(330)2 Yousif Hagan MD Primary Care Provider 1(3 30) Yousif Hagan MD Primary Care Provider 1(3 30) OLEGHOtis, EFEWONGBE B Primary Care Unavailable PLOTTS, MACHELLE Referring Unavailable PLOTTS, MACHELLE Referring Unavailable OLEGHE, EFEWONGBE B Primary Care Unavailable PLOTTS, MACHELLE Referring Unavailable OLEGHE, EFEWONGBE B Primary Care Unavailable PLOTTS, MACHELLE Referring Unavailable OLEGHE, EFEWONGBE B Primary Care Unavailable OLEGHE, EFEWONGBE B Primary Care Unavailable PLOTTS, MACHELLE Referring Unavailable Chago Martinez MD Primary Care Provider Podlogar ONLINE RETAILER.Caryn MENDOZA Unavailable Podlogar ONLINE RETAILER.Caryn MENDOZA Unavailable Knoble ONLINE RETAILER.GROUND WATER TECHNICIANUnique Unavailable Knoble ONLINE RETAILER.GROUND WATER TECHNICIAN, Unique Unavailable Knoble ONLINE RETAILER.GROUND WATER TECHNICIAN, Unique Unavailable Bentley ELLIS, Dr. Martinez Primary Care Provider Bentley ELLIS, Dr. Martinez Referring Provider 1(33 0) Dosriana CHAPA, Dr. Rossi Attending Provider 1(330) Bentley ELLIS, Dr. Martinez Primary Care Provider Bentley ELLIS, Dr. Martinez Referring Provider 1(33 0) Miles CHAPA, Dr. Rossi Attending Provider 1(330) Juan ELLIS, Dr. Barillas Primary Care Provider Maykel ONLINE RETAILER.GROUND WATER TECHNICIAN, Unique Unavailable Maykel ONLINE RETAILER.GROUND WATER TECHNICIAN, Unique Unavailable Juan ELLIS, Dr. Barillas Referring Provider CHAGO MARTINEZ Primary Care Unavailab eden GALVAN, KRISSY Referring Unavailable MACHELLE WEEMS Referring Unavailable JUAN, MARGOOPHER B Primary Care Unavailab le JUAN, MARGOOPHER B Primary Care Unavailab JOSE Woods Attending Unavailable MACHELLE WEEMS Attending Unavailable YOUSIF HAGAN Primary Care Unavailable SLECARLOS, KHALED NIKOLAY Attending Unavailable KATELYN MARTINEZER B Primary Care Unavailab le GALVAN, KRISSY Referring Unavailable PLOTDANITA, MACHELLE Referring Unavailable EDDIELEY, MARGOOPHER B Primary Care Unavailab le MACHELLE WEEMS Attending Unavailable MACHELLE WEEMS Referring Unavailable BURSLEY, MARGOOPHER B Primary Care Unavailab le GALVAN, KRISSY Attending Unavailable BURSLEY, CHRISTOPHER B Primary Care Unavailab le BURSLEY, CHRISTOPHER B Primary Care Unavailab le GALVAN, KRISSY Attending Unavailable BURSLEY, CHRISTOPHER B Primary Care Unavailab le GALVAN, KRISSY Attending Unavailable RAMA JACOB Attending Unavailable JUAN, KATELYNER B Primary Care Unavailab le EDDIELEY, CHRISTOPHER B Primary Care Unavailab CARYN Hunt Attending Unavailable MACHELLE WEEMS Attending Unavailable JUAN, MARGOOPHER B Primary Care Unavailab le SLEIK, KHALED MELOUD Referring Unavailable EDDIELEY, CHRISTOPHER B Primary Care Unavailab RAMA De La Cruz Referring Unavailable BURSLEY, CHRISTOPHER B Primary Care Unavailab le DANK, MACHELLE Attending Unavailable BURSLEY, CHRISTOPHER B Primary Care Unavailab le PLOTDANITA, MACHELLE Referring Unavailable BURSLEY, CHRISTOPHER B Primary Care Unavailab MACHELLE Guadarrama Attending Unavailable BURSLEY, CHRISTOPHER B Primary Care Unavailab le BURSLEY, CHRISTOPHER B Primary Care Unavailab SOFY Ace Attending Unavailable RAMA JACOB Attending Unavailable BURSLEY, CHRISTOPHER B Primary Care Unavailab eden PLOTDANITA, MACHELLE Referring Unavailable BURSLEY, CHRISTOPHER B Primary Care Unavailab KRISSY Park Attending Unavailable KRISSY GALVAN Referring Unavailable BURSLEY, CHRISTOPHER B Primary Care Unavailab RAMA De La Cruz Attending Unavailable BURSLEY, CHRISTOPHER B Primary Care Unavailab eden PLOTMACHELLE YUSUF Attending Unavailable BURSLEY, CHRISTOPHER B Primary Care Unavailab le Oleghe, Efewongbe Primary Care Unavailable Oleghe, Efewongbe Referring Unavailable Dossi, Enid Attending Unavailable Oleghe, Efewongbe Primary Care Unavailable Oleghe, Efewongbe Referring Unavailable DosEnid mayers Attending Unavailable Oleghe, Efewongbe Primary Care Unavailable Dosriana, Enid Attending Unavailable Oleghe, Efewongbe Referring Unavailable Marino Anjelica Referring Unavailable Anjelica Pichardo Attending Unavailable Marino Anjelica Admitting Unavailable Bursley, Eran Primary Care Unavailable Oleghe, Efewongbe Primary Care Unavailable Dosriana, Enid Attending Unavailable Oleghe, Efewongbe Referring Unavailable Oleghe, Efewongbe Primary Care Unavailable DosEnid mayers Attending Unavailable Oleghe, Efewongbe Referring Unavailable DosEnid mayers Attending Unavailable Bursley, Eran Primary Care Unavailable Oleghe, Efewongbe Referring Unavailable Dossi, Enid Attending Unavailable Bursley, Eran Primary Care Unavailable Oleghe, Efewongbe Referring Unavailable DosEnid mayers Attending Unavailable Bursley, Eran Primary Care Unavailable Oleghe, Efewongbe Referring Unavailable DossiEnid Attending Unavailable Bursley, Eran Primary Care Unavailable Bursley, Eran Referring Unavailable Oleghe, Efewongbe Primary Care Unavailable Oleghe, Efewongbe Referring Unavailable Dossi, Enid Attending Unavailable Oleghe, Efewongbe Primary Care Unavailable Oleghe, Efewongbe Referring Unavailable Dossi, Enid Attending Unavailable DosEnid mayers Attending Unavailable Juan, Eran Referring Unavailable Eran Martinez Primary Care Unavailable Enid Aquino Attending Unavailable Oleghe, Efewongbe Primary Care Unavailable Oleghe, Efewongbe Referring Unavailable DosEnid mayers Attending Unavailable Oleghe, Efewongbe Primary Care Unavailable Oleghe, Efewongbe Referring Unavailable Oleghe, Efewongbe Primary Care Unavailable DosEnid mayers Attending Unavailable Oleghe, Efewongbe Referring Unavailable Oleghe, Efewongbe Primary Care Unavailable Oleghe, Efewongbe Referring Unavailable Dossi, Enid Attending Unavailable Allergies Allergy Classification Reported Allergen(s) Allergy Type Date of Onset Reaction(s) Facility Mold Extract (1 source) Mold Extract Drug Allergy 5 [facility] (20 sources) Mold Extract; Translations: [MOLD] Drug Allergy 5 [facility] (16 sources) Ragweed pollen; Translations: [ragweed pollen] Allergy to substance 2 unknown [facility] (20 sources) Ragweed; Translations: [RAGWEED] Propensity to adverse reactions 5 [facility] (1 source) Mold Extract Drug Allergy 5 [facility] Repository Medications Current Medications Medication Drug Class(es) Dates Sig (Normalized) Sig (Original) ergocalciferol, vitamin D2, (VITAMIN D2 ORAL) (17 sources) take 2000 [IU] by mouth once daily ergocalciferol, vitamin D2, (VITAMIN D2 ORAL) Take 2,000 Units by mouth once daily. Active loratadine 10 mg oral tablet (20 sources) Start: 04-20-2023 take 1 tablet by mouth once daily Loratadine (Allergy Relief (Loratadine)) 10 mg tablet Active 10 mg PO DAILY April 20, 2023 12:00am Start: 12-13-2022 End: 03-02-2023 take 1 tablet by mouth once daily Loratadine (Claritin) 10 mg tablet Discontinued 10 mg PO DAILY December 13, 2022 12:00am March 02, 2023 7:07am allergies magnesium aspart,citrate,oxi de 400 mg magnesium cap (11 sources) magnesium aspart,citrate,oxide 400 mg magnesium cap Take by mouth. Active Mv-Min No.[id number] (Alive Daily Support ) 180 mcg-25 mg- 25 mg tablet,chewable (15 sources) Start: take 1 tablet by mouth once daily Mv-Min No.[id number] (Alive Daily Support ) 180 mcg-25 mg- 25 mg tablet,chewable Active 1 {tbl} PO DAILY April 19, 2022 12:00am pregnan Start: 04-19-2022 take 1 tablet by zuleyka th once daily Mv-Min No.[id number] (Alive Daily Support ) 180 mcg-25 mg- 25 mg tablet,chewable Active 1 {tbl} PO DAILY April 19, 2022 12:00am Start: 04-19-2022 take 1 tablet by zuleyka th once daily Mv-Min No.[id number] (Alive Daily Support ) 180 mcg-25 mg- 25 mg tablet,chewable Active 1 TABLET PO DAILY April 18, 2022 11:00pm Start: 04-19-2022 take 1 tablet by zuleyka th once daily Mv-Min No.[id number] (Alive Daily Support ) 180 mcg-25 mg- 25 mg tablet,chewable Active 1 TABLET PO DAILY April 19, 2022 12:00am Start: 04-19-2022 take 1 tablet by zuleyka th once Mv-Min No.05-[id number] (Alive Daily Support ) 180 mcg-25 mg- 25 mg tablet,chewable Active TABLET PO April 18, 2022 11:00pm Start: 04-19-2022 take 1 tablet by zuleyka th once Mv-Min No.[id number] (Alive Daily Support ) 180 mcg-25 mg- 25 mg tablet,chewable Active TABLET PO April 19, 2022 12:00am pantoprazole 20 mg delayed release oral tablet (19 sources) Proton Pump Inhibitor Start: 10-16-2024 End: 01-08-2025 take 1 tablet by mouth once daily pantoprazole DR (PROTONIX) 20 mg tablet Indications: Nausea and vomiting during (HCC) Take 1 tablet by mouth once daily. 30 tablet 4 01/08/2025 Active Start: 07-21-2024 take 1 tablet by zuleyka th once daily pantoprazole DR (PROTONIX) 20 mg tablet Take 1 tablet by mouth once daily. 30 tablet 4 07/21/2024 Active prental multivitamin 27 mg iron- 800 mcg tablet (20 sources) take 1 tablet by zuleyka th once daily prental multivitamin 27 mg iron- 800 mcg tablet Take 1 tablet by mouth once daily. Active take 1 tablet by mouth once dagoberto y prental multivitamin 27 mg iron- 800 mcg tablet Take 1 tablet by mouth once daily. 0 Active Comment on above: Take 1 tablet by zuleyka th once daily. promethazine hydrochloride 12.5 mg oral tablet (20 sources) Phenothiazine Start: 06-16-20 take 12.5-25 mg by mouth every six hours as needed promethazine (PHENERGAN) 12.5 mg tablet Take 1-2 tablets by mouth every 6 hours as needed for nausea/vomiting. 90 tablet 2 06/16/2024 Active Start: 07-31-2022 End: 03-27-2024 take 12.5-25 mg by mouth every six hours as needed promethazine (PHENERGAN) 12.5 mg tablet Take 1-2 tablets by mouth every 6 hours as needed for nausea/vomiting. 30 tablet 0 08/31/2022 Active Comment on above: Take 1-2 tablets by mouth every 6 hours as needed for nausea/vomiting. sertraline 25 mg oral tablet (20 sources) Serotonin Reuptake Inhibitor Start: End: take 1 tablet by mouth once daily sertraline (ZOLOFT) 25 mg tablet Take 1 tablet by mouth once daily. 90 tablet 3 11/12/2024 12:36 PM EDT 02/15/2024 Active Completed/Discontinued Medications Medication Drug Class(es) Dates Sig (Normalized) Sig (Original) aspirin 81 mg chewable tablet (9 sources) Platelet Aggregation Inhibitor, Nonsteroidal Anti-inflammatory Drug Start: 12-13-2022 End: 03-02-2023 take 2 tablets by mouth once daily Aspirin (Susie Chewable Aspirin) 81 mg tablet,chewable Discontinued 162 mg PO DAILY December 13, 2022 12:00am March 02, 2023 7:07am cyclobenzaprine hydrochloride 5 mg oral tablet (20 sources) Muscle Relaxant Start: 06-12-2022 End: 12-13-2022 take 1 tablet by mouth every eight hours as needed for muscle spasms Cyclobenzaprine 5 mg tablet Discontinued 5 mg PO Q8H as needed for muscle spasms/tension headache 60 June 12, 2022 11:05am December 13, 2022 10:52am Start: 12-04-2018 End: 2021 take 1 tablet by mouth every eight hours as needed for headache Cyclobenzaprine 5 mg tablet Discontinued 5 mg PO Q8H as needed for tension headache 60 December 04, 2018 1:29pm 2021 4:18pm Start: 07-13-2017 End: 12-04-2018 take 1 tablet by mouth every eight hours Cyclobenzaprine 10 mg tablet Discontinued 10 mg PO Q8H July 13, 2017 1:00am December 04, 2018 1:29pm Start: 06-01-2017 End: 08-07-2022 take 1 tablet by mouth once daily as needed cyclobenzaprine (FLEXERIL) 10 mg tablet Take 1 tablet by mouth once daily as needed. 0 06/01/2017 08/07/2022 Discontinued Comment on above: Take 1 tablet by zuleyka once daily as needed. ethinyl estradiol 0.035 mg / norethindrone 1 mg oral tablet (15 sources) Estrogen Start: 017 End: Norethindrone-Ethin Estradiol (Pirmella) 1-35 mg-mcg tablet Discontinued 1 {tbl} PO daily July 13, 2017 1:00am April 19, 2022 4:43pm fluticasone propionate 0.05 mg/actuat metered dose nasal spray (14 sources) Corticosteroid Start: 019 End: take 1 spray(s) nasal route once daily at bedtime fluticasone (FLONASE) 50 mcg/actuation nasal spray Indications: Maxillary sinusitis, unspecified chronicity Use 1 Annabella in each nostril daily at bedtime. 1 Bottle 0 03/26/2019 10/04/2022 Discontinued Comment on above: Use 1 Annabella in each nostril daily at bedtime. meclizine hydrochloride 25 mg oral tablet (4 sources) Antiemetic Start: 024 End: take 1 tablet by mouth every eight hours as needed meclizine (ANTIVERT) 25 mg tab Take 1 tablet by mouth three times a day as needed. 60 tablet 03/27/2024 06/10/2024 Discontinued naproxen sodium 220 mg oral capsule (15 sources) Nonsteroidal Anti-inflammatory Drug Start: End: take 1 capsule by mouth every twelve hours Naproxen Sodium (Aleve) 220 mg capsule Discontinued 220 mg PO Q12H July 13, 2017 1:00am 2021 4:18pm No home medication information (3 sources) ondansetron 4 mg oral tablet (2 sources) Serotonin-3 Receptor Antagonist Start: End: take 1 tablet by mouth every eight hours as needed ondansetron (ZOFRAN) 4 mg tablet Take 1 tablet by mouth every 8 hours as needed for nausea/vomiting. 30 tablet 1 06/10/2024 06/16/2024 Discontinued (Discontinued by Patient) phenazopyridine hydrochloride 200 mg oral tablet (15 sources) Start: End: take 1 tablet by mouth three times daily as needed for pain Phenazopyridine (Pyridium) 200 mg tablet Discontinued 200 mg PO THREE TIMES A DAY as needed for pain 6 0 2021 12:00am February 17, 2021 2:58pm Problems Active Problems Problem Classification Problem Date Documented Da te Episodic/Chronic Abdominal pain (1 source) Vaginal pain; Translations: [Pelvic and perineal pain] 08-24-2023 Episodic Anxiety disorders (20 sources) Anxiety; Translations: [Anxiety disorder, unspecified] Onset: 06-16-2024 11-26-2023 Chronic Genitourinary symptoms and ill-defined conditions (20 sources) Increased frequency of urination; Translations: [Frequency of micturition] Onset: 12-31-2023 2021 Episodic Headache; including migraine (15 sources) Tension-type headache; Translations: [Tension-type headache, unspecified, not intractable] 07-13-2017 Chronic Headache; including migraine (20 sources) Headache; Translations: [Persistent headaches] Episodic Immunizations and screening for infectious disease (3 sources) Vaccination needed; Translations: [Encounter for immunization] Onset: 11-11-2024 Episodic Menstrual disorders (19 sources) Irregular periods; Translations: [Irregular menstruation, unspecified] Chronic Mood disorders (1 source) Depressive disorder; Translations: [Depression, unspecified depression type] 05-05-2024 Chronic Mood disorders (3 sources) Mood disorders; Translations: [Depression affecting (HCC)] Onset: 05-05-2024 Nausea and vomiting (1 source) Nausea; Translations: [Nausea] 06-10-2024 Episodic OB-related trauma to perineum and vulva (9 sources) Second degree perineal laceration; Translations: [Second degree perineal laceration during delivery] 03-01-2023 Episodic Other acquired deformities (20 sources) Scoliosis deformity of spine; Translations: [Scoliosis, unspecified] 07-05-2022 Chronic Comment on above: L cervicothoracic Other acquired deformities (20 sources) Scoliosis, unspecified; Translations: [Scoliosis [and kyphoscoliosis], idiopathic] Chronic Other bone disease and musculoskeletal deformities (1 source) Other idiopathic scoliosis, cervicothoracic region; Translations: [Other idiopathic scoliosis, cervicothoracic region] Onset: 01-19-2025 Chronic Other bone disease and musculoskeletal deformities (20 sources) Segmental and somatic dysfunction; Translations: [Segmental and somatic dysfunction of cervical region] 06-19-2022 Episodic Other bone disease and musculoskeletal deformities (20 sources) Segmental and somatic dysfunction of cervical region; Translations: [Nonallopathic lesions, cervical region] Onset: 01-19-2025 Episodic Other bone disease and musculoskeletal deformities (20 sources) Segmental and somatic dysfunction of lumbar region; Translations: [Nonallopathic lesions, lumbar region] Onset: 01-19-2025 Episodic Other bone disease and musculoskeletal deformities (20 sources) Segmental and somatic dysfunction of thoracic region; Translations: [Nonallopathic lesions, thoracic region] Onset: 01-19-2025 Episodic Other bone disease and musculoskeletal deformities (14 sources) Segmental and somatic dysfunction of sacral region; Translations: [Nonallopathic lesions, sacral region] Onset: 01-19-2025 08-15-2022 Episodic Other bone disease and musculoskeletal deformities (1 source) Segmental and somatic dysfunction of pelvic region; Translations: [Segmental and somatic dysfunction of pelvic region] Onset: 01-19-2025 Episodic Other complications of (7 sources) Patient encounter status; Translations: [ with inconclusive viability, not applicable or unspecified] Episodic Other complications of (1 source) Spotting per vagina in ; Translations: [Spotting complicating , unspecified trimester] Episodic Other complications of (20 sources) Depressive disorder in mother complicating ; Translations: [Other mental disorders complicating , unspecified trimester] Onset: 08-19-2024 08-19-2024 Episodic Other complications of (2 sources) Other specified related conditions, second trimester; Translations: [Heartburn during in second trimester (HCC)] Onset: 07-21-2024 Episodic Other connective tissue disease (6 sources) Pelvic floor dysfunction; Translations: [Other specified disorders of muscle] 12-04-2023 Episodic Other connective tissue disease (1 source) Other specified disorders of muscle; Translations: [Pelvic floor dysfunction] Onset: 12-31-2023 Episodic Other eye disorders (15 sources) Vitreous opacity of bilateral eyes; Translations: [Other vitreous opacities, bilateral] 10-05-2021 Chronic Comment on above: Right eye Other female genital disorders (1 source) Dyspareunia; Translations: [Other specified dyspareunia] 08-24-2023 Chronic Other female genital disorders (8 sources) Vaginal discharge; Translations: [Other specified noninflammatory disorders of vagina] 03-01-2023 Episodic Other female genital disorders (1 source) Other specified noninflammatory disorders of vagina; Translations: [Leukorrhea, not specified as infective] 02-09-2023 Episodic Other female genital disorders (1 source) Pruritus of vagina; Translations: [Other specified noninflammatory disorders of vagina] 08-19-2024 Episodic Other gastrointestinal disorders (2 sources) Heartburn; Translations: [Heartburn during in second trimester (HCC)] Onset: 07-21-2024 Episodic Other liver diseases (7 sources) Elevated liver enzymes level; Translations: [Abnormal levels of other serum enzymes] 04-20-2023 Episodic Other liver diseases (1 source) Abnormal levels of other serum enzymes; Translations: [Other nonspecific abnormal serum enzyme levels] 04-20-2023 Episodic Other lower respiratory disease (9 sources) Dyspnea; Translations: [Shortness of breath] 12-19-2022 Episodic Other lower respiratory disease (2 sources) Shortness of breath; Translations: [Shortness of breath] 12-13-2022 Episodic Other lower respiratory disease (20 sources) H/O: asthma; Translations: [Personal history of other diseases of the respiratory system] 08-19-2024 Episodic Other non-traumatic joint disorders (1 source) Pain of right wrist; Translations: [Pain in right wrist] 05-05-2024 Episodic Other and delivery including normal (20 sources) Normal ; Translations: [Encounter for supervision of normal first , unspecified trimester] Onset: 10-27-2022 Resolved: 11-11-2024 Episodic Other screening for suspected conditions (not mental disorders or infectious disease) (6 sources) Cancer cervix screening status; Translations: [Encounter for screening for malignant neoplasm of cervix] Onset: 09-17-2024 04-17-2024 Episodic Other upper respiratory disease (15 sources) Seasonal allergic rhinitis; Translations: [Other seasonal allergic rhinitis] 07-13-2017 Chronic Residual codes; unclassified (2 sources) Gestation period, 12 weeks; Translations: [12 weeks [...] gestation of ] Episodic Residual codes; unclassified (10 sources) Gestation period, 37 weeks; Translations: [37 weeks gestation of ] 02-14-2023 Episodic Residual codes; unclassified (2 sources) Gestation period, 38 weeks; Translations: [38 weeks gestation of ] 02-19-2023 Episodic Residual codes; unclassified (11 sources) Gestation period, 39 weeks; Translations: [39 weeks gestation of ] 02-28-2023 Episodic Residual codes; unclassified (2 sources) 37 weeks gestation of ; Translations: [ state, incidental] Onset: 01-15-2025 02-09-2023 Episodic Residual codes; unclassified (2 sources) 39 weeks gestation of ; Translations: [ state, incidental] Onset: 2025 03-03-2023 Episodic Residual codes; unclassified (1 source) First trimester ; Translations: [Less than 8 weeks gestation of ] 06-16-2024 Episodic Residual codes; unclassified (1 source) Gestation period, 11 weeks; Translations: [11 weeks gestation of ] 07-21-2024 Episodic Residual codes; unclassified (1 source) Gestation period, 16 weeks; Translations: [16 weeks gestation of ] 08-19-2024 Episodic Residual codes; unclassified (2 sources) Gestation period, 20 weeks; Translations: [20 weeks gestation of ] 09-17-2024 Episodic Residual codes; unclassified (1 source) Gestation period, 28 weeks; Translations: [28 weeks gestation of ] 11-11-2024 Episodic Residual codes; unclassified (1 source) Gestation period, 30 weeks; Translations: [30 weeks gestation of ] 11-25-2024 Episodic Residual codes; unclassified (1 source) Gestation period, 34 weeks; Translations: [34 weeks gestation of ] 12-26-2024 Episodic Residual codes; unclassified (1 source) Gestation period, 36 weeks; Translations: [36 weeks gestation of ] 01-08-2025 Episodic Residual codes; unclassified (1 source) 38 weeks gestation of ; Translations: [38 weeks gestation of (HCC)] Onset: 01-22-2025 Episodic Residual codes; unclassified (1 source) 36 weeks gestation of ; Translations: [36 weeks gestation of (HCC)] Onset: 01-08-2025 Episodic Residual codes; unclassified (1 source) 34 weeks gestation of ; Translations: [34 weeks gestation of (HCC)] Onset: 12-26-2024 Episodic Residual codes; unclassified (1 source) 32 weeks gestation of ; Translations: [32 weeks gestation of (HCC)] Onset: 12-09-2024 Episodic Residual codes; unclassified (1 source) 30 weeks gestation of ; Translations: [30 weeks gestation of (HCC)] Onset: 11-25-2024 Episodic Residual codes; unclassified (1 source) 28 weeks gestation of ; Translations: [28 weeks gestation of (HCC)] Onset: 11-11-2024 Episodic Residual codes; unclassified (1 source) 24 weeks gestation of ; Translations: [24 weeks gestation of (HCC)] Onset: 11-10-2024 Episodic Unclassified (3 sources) Onset: 03-28-2016 Unclassified (1 source) Physical Therapy Onset: 01-14-2024 Unclassified (20 sources) [facility] - COMMON Onset: 06-16-2024 06-16-2024 Unclassified (20 sources) Education - [place] Onset: 06-16-2024 06-16-2024 Past or Other Problems Problem Classification Problem Date Documented Date Episodic/Chronic Bacterial infection; unspecified site (20 sources) Bacteria present; Translations: [Streptococcus, group B, as the cause of diseases classified elsewhere] Onset: 02-07-2023 Resolved: 06-16-2024 02-07-2023 Episodic Cardiac dysrhythmias (20 sources) Palpitations; Translations: [Palpitations] Onset: 08-19-2024 12-13-2022 Episodic Intracranial injury (20 sources) Concussion injury of body structure; Translations: [Mild concussion] Onset: 05-01-2013 Resolved: 10-24-2014 10-24-2014 Episodic Malaise and fatigue (3 sources) Malaise and fatigue; Translations: [Other malaise] Onset: 08-19-2024 08-19-2024 Episodic Miscellaneous mental health disorders (6 sources) depression; Translations: [ depression] Onset: 06-16-2024 06-16-2024 Episodic Other complications of (20 sources) Nausea and vomiting; Translations: [Vomiting of , unspecified] Onset: 08-07-2022 Episodic Other complications of (20 sources) Vomiting of , unspecified; Translations: [Unspecified vomiting of , unspecified as to episode of care or not applicable] Onset: 08-07-2022 08-07-2022 Episodic Other complications of (20 sources) Heartburn; Translations: [Other specified related conditions, second trimester] Onset: 07-21-2024 07-21-2024 Episodic Other complications of (2 sources) Other mental disorders complicating , unspecified trimester; Translations: [Depression affecting (HCC)] Onset: 08-19-2024 Episodic Other inflammatory condition of skin (20 sources) Erythema nodosum; Translations: [Erythema nodosum] Onset: 12-31-2014 12-31-2014 Episodic Other lower respiratory disease (1 source) Personal history of other diseases of the respiratory system; Translations: [History of asthma] Onset: 08-19-2024 Episodic Other non-traumatic joint disorders (1 source) Pain in right wrist; Translations: [Right wrist pain] Onset: 05-05-2024 Episodic Residual codes; unclassified (20 sources) Family history of Higuera syndrome; Translations: [Family history of other congenital malformations, deformations and chromosomal abnormalities] Onset: 07-05-2022 07-05-2022 Episodic Residual codes; unclassified (20 sources) H/O: depression; Translations: [Personal history of other complications of , childbirth and the puerperium] Onset: 06-16-2024 08-19-2024 Episodic Residual codes; unclassified (1 source) Personal history of other complications of , childbirth and the puerperium; Translations: [History of depression] Onset: 08-19-2024 Episodic Residual codes; unclassified (1 source) Family history of other congenital malformations, deformations and chromosomal abnormalities; Translations: [Family history of Higuera syndrome] Onset: 07-05-2022 Episodic Residual codes; unclassified (1 source) 20 weeks gestation of ; Translations: [20 weeks gestation of ] Onset: 10-06-2024 Episodic Residual codes; unclassified (1 source) 12 weeks gestation of ; Translations: [12 weeks gestation of ] Onset: 09-17-2024 Episodic Residual codes; unclassified (1 source) 16 weeks gestation of ; Translations: [16 weeks gestation of ] Onset: 08-19-2024 Episodic Residual codes; unclassified (1 source) Less than 8 weeks gestation of ; Translations: [Less than 8 weeks gestation of ] Onset: 06-16-2024 Episodic Screening and history of mental health and substance abuse codes (3 sources) Personal history of other mental and behavioral disorders; Translations: [Encounter for screening for depression] Onset: 05-05-2024 Episodic Spondylosis; intervertebral disc disorders; other back problems (20 sources) Cervicalgia; Translations: [Low back pain] Onset: 05-05-2016 Episodic Sprains and strains (20 sources) Strain of back muscle; Translations: [Strain of muscle, fascia and tendon of lower back, initial encounter] Onset: 02-10-2013 Resolved: 10-24-2014 10-24-2014 Episodic Viral infection (20 sources) Infectious mononucleosis; Translations: [Infectious mononucleosis, unspecified without complication] Onset: 10-24-2014 Resolved: 06-16-2024 10-24-2014 Episodic Results Test Name Value Interpretation Reference Range Facil ity URINE OB DIP B/Oon Glucose Ql (U) Negative Neg mg/dL [facility] Interpretation and review of laboratory results Normal [facility] Protein.monoclonal (U) [Mass/Vol] Negative Neg mg/dL [facility] CNPNon 01-28-2025 CNPN Telephone (OBGYWM) MELANY MACE ([id number]) 1995 [facility] Date Time Provider Department 01/28/25 JACKI LOPEZ OBKIMBERLEY During your visit today, we recorded the following information about you: Anna Nesbitt RN 01/28/2025 9:33 AM Signed [id number] [facility] [employer] tech approached this RN stating Pt, whom is a friend of hers, had some questions about her visit yesterday; therefore, this RN reached out to Pt to answer questions. Pt seen 01/26/25 JG stripped -after light pink spotting off and on AND 01/28/25 DM (Pt states was stretched to 3cm AND stripped- last night started with dark red/ stringy/mucousy/ bloody after wiping (not dripping, wearing pad, but Pt states does not come out unless sitting down on toilet). Active FM/Denies LOF. [place] some pressure around 1030 pm went to sleep-slept decently. Contractions today not as strong as last night. No pressure today. Pt advised to stay hydrated, rest as much as able, continue to wear pad and monitor for increased amt AND to call office if heavy bleeding (filling pad qhr for more than 2hrs)/severe abdominal pain-but did inform Pt that this sounds more like bloody show AND like her body is just preparing for what is about to come, encouraged her to take tylenol 1,000mg if she feels she needs it as needed, and to call office with any further questions/concerns. Pt voiced understanding. NICOLE Becerra Deidre, MD 01/28/2025 11:49 AM Signed Agree with advice. Allergies As of Date: 01/28/2025 Noted Allergy Reaction MOLD 04/12/2005 RAGWEED 04/12/2005 Date Reviewed: 2025 Reviewed by: Rama Jacob MD - Fully Assessed Prescriptions as of 01/28/2025 - pantoprazole DR (PROTONIX) 20 mg tablet Take 1 tablet by mouth once daily. - loratadine (CLARITIN) 10 mg tablet Take 10 mg by mouth once daily. - magnesium aspart,citrate,oxide 400 mg magnesium cap Take by mouth. - ergocalciferol, vitamin D2, (VITAMIN D2 ORAL) Take 2,000 Units by mouth once daily. - promethazine (PHENERGAN) 12.5 mg tablet Take 1-2 tablets by mouth every 6 hours as needed for nausea/vomiting. - sertraline (ZOLOFT) 25 mg tablet Take 1 tablet by mouth once daily. - prental multivitamin 27 mg iron- 800 mcg tablet Take 1 tablet by mouth once daily. Problem List As Of Date 01/28/2025 Noted Resolved Back strain [S39.012A] 02/10/2013 10/24/2014 Mild concussion [S06.0XAA] 05/01/2013 10/24/2014 Mononucleosis [B27.90] 10/24/2014 06/16/2024 Erythema nodosum [L52] 12/31/2014 Family history of Higuera syndrome [Z82.79] 07/05/2022 Nausea and vomiting during [O21.9] 08/07/2022 Encounter for supervision of normal first pregn*10/27/2022 Positive GBS test [B95.1] 02/07/2023 06/16/2024 Supervision of normal (HCC) [Z34.90] 06/16/2024 11/11/2024 History of depression [Z87.59, Z86.5*06/16/2024 Anxiety [F41.9] 06/16/2024 Heartburn during in second trimester *07/21/2024 History of asthma [Z87.09] Depression affecting [O99.340, F32.A] 08/19/2024 Palpitations [R00.2] 08/19/2024 Encounter Status:Closed by NAI MOSLEY on 01/28/25 Normal [facility] Chiropractic Reporton 2024 Chiropractic Report [facility] [address] [place] [address] OFFICE VISIT Date of Service: 01/26/25 MR#: [id number] Acct: [id number] Name: MELANY MACE Rep #: [id number] : 1995 Provider: EDUARD Mckinney Age/Sex: 30/F [place] [facility] [place]: Signed Intake Vital Signs 04/20/23 10:30 Height 5 ft 4 in Intake Visit Reasons: ADJUSTMENT Chief Complaint: low back, pelvis, tailbone pain Is patient in pain?: Yes (low back, SI) Pain scale (1-10): 3 Allergies mold Allergy (Verified 01/26/25 15:25) unknown ragweed pollen Allergy (Verified 01/26/25 15:25) unknown Medications ???Medication ???Instructions ???Recorded ???Confirmed ???Type mv-mn no.97-folic 180 mcg-dha 25 1 tab PO DAILY pregnan 04/19/22 History mg-herb no.293 25 mg chewable tablet (Alive Daily Support ) loratadine 10 mg tablet (Allergy 10 mg PO DAILY 04/20/23 01/26/25 H istory Relief (loratadine)) sertraline 25 mg tablet 25 mg PO QDAY 12/24/23 01/26/25 Hi story [facility] Medical History Elevated liver enzymes Laceration, obstetrical, second degree Care and examination of lactating mother (spontaneous vaginal delivery) Encounter for elective induction of labor 39 weeks gestation of Shortness of breath Palpitations Chronic neck pain Preventative health care Menstrual irregularity Other vitreous opacities, bilateral Urinary frequency Seasonal allergies Back pain Persistent headaches Surgical History H/O wisdom tooth extraction Family History Grandmother Cancer lung CVA (cerebral vascular accident) Grandfather Cancer pancreatic Father Heart disease Hypertension Hyperlipidemia Grandfather Heart disease CVA (cerebral vascular accident) Social History Smoking Status: Never smoker alcohol intake: never substance use type: does not use caffeine: Yes (Occasionally) Type: coffee what type of physical activity do you participate in: walking frequency: 3-4 times per week HPI ADJUSTMENT Chief Complaint: Back pain Visit Number: 10 Details: Melany is a 30 year old female who is here for adjustment. Pt. advises she is currently 39 weeks . Pt. continues to c/o pelvis, hips and tailbone pain and pressure. She states it fluctuates from right to left depending on baby's position. She rates her tailbone pain a constant 3/10. She continues to wear a belly band for extra support but complains of hip and pelvic pain and pressure. She states walking/ weight bearing contribute to her low back pain. Her neck and upper back get sore at times. She also continues experience bilateral hand numbness at night when she is sleeping but denies neck pain. She denies new injury, numbness or tingling. She treats pain at home with heat, stretching and rubber ball massage. Melany reports chiropractic adjustments are helpful in relieving her discomfort but it gradually returns. Location: neck and low back Duration: frequent Aggravating or associated factors: work posture, caring for child/ Relieving factors: chiro Pain Quality: aching and dull Exam Musc General: Yes normal gait, joint tenderness and decreased range of motion; No normal posture or muscle weakness Cervical Spine: Yes loss of normal cervical lordosis (left curve), Yes cervical muscular tenderness bilateral lower , Yes cervical spasm right lower trapezius and paracervical muscles and Yes misalignment misalignment: C5, C6 and C7 Thoracic/Lumber: Yes thoracic and lumbar spine normal to inspection, Yes paraspinal tenderness bilaterally in the mid lumbar and in the lower lumbar and on the right greater than left (midthoracic), Yes scoliosis (left cervicothoracic), Yes thoraco-lumbar spasm on the right greater than left (rhomboid, piriformis) and on the left greater than right (upper trap, QL) and Yes misalignment T2, T3, T5, T6, T7, L3, L4, L5, RIL and LIL Sacrum: Yes tenderness bilaterally and Yes misalignment (left) Yes Office Procedures Procedures - Chiropractic Procedures Manipulation: Cervical C6, Lumbar L4, Sacrum (left) and Thoracic T2 and T5 Manipulation: 3-4 regions Patient Response: positive Assessment and Plan Assessment and Plan (1) Segmental and somatic dysfunction of cervical region: Status: Acute (2) Scoliosis: Status: Chronic Qualifiers: Idiopathic scoliosis type: other Scoliosis type: idiopathic Spinal region: cervicothoracic Qualified Code(s): M41.23 - Other idiopathic scoliosis, cervicothoracic region Comment: L cervicothoracic (3) Segmental and somatic dys (more content not included)... Normal [facility] URINE OB DIP B/Oon 5 Glucose Ql (U) Negative Neg mg/dL [facility] Interpretation and review of laboratory results Normal [facility] Protein.monoclonal (U) [Mass/Vol] Negative Neg mg/dL [facility] URINE OB DIP B/Oon 5 Glucose Ql (U) Negative Neg mg/dL [facility] Protein.monoclonal (U) [Mass/Vol] Negative Neg mg/dL [facility] Chiropractic Reporton 2024 Chiropractic Report [facility] [address] [place] [address] OFFICE VISIT Date of Service: 01/19/25 MR#: [id number] Acct: [id number] Name: MELANY MACE Rep #: [id number] : 1995 Provider: EDUARD Mckinney Age/Sex: 29/F [place] [facility] [place]: Signed Intake Vital Signs 04/20/23 10:30 Height 5 ft 4 in Intake Visit Reasons: ADJUSTMENT Chief Complaint: low back, pelvis, tailbone pain Is patient in pain?: Yes (pelvis, hips, tailbone) Pain scale (1-10): 5 Allergies mold Allergy (Verified 01/19/25 09:16) unknown ragweed pollen Allergy (Verified 01/19/25 09:16) unknown Medications ???Medication ???Instructions ???Recorded ???Confirmed ???Type mv-mn no.97-folic 180 mcg-dha 25 1 tab PO DAILY pregnan 04/19/22 History mg-herb no.293 25 mg chewable tablet (Alive Daily Support ) loratadine 10 mg tablet (Allergy 10 mg PO DAILY 04/20/23 01/19/25 H istory Relief (loratadine)) sertraline 25 mg tablet 25 mg PO QDAY 12/24/23 01/19/25 Hi story [facility] Medical History Elevated liver enzymes Laceration, obstetrical, second degree Care and examination of lactating mother (spontaneous vaginal delivery) Encounter for elective induction of labor 39 weeks gestation of Shortness of breath Palpitations Chronic neck pain Preventative health care Menstrual irregularity Other vitreous opacities, bilateral Urinary frequency Seasonal allergies Back pain Persistent headaches Surgical History H/O wisdom tooth extraction Family History Grandmother Cancer lung CVA (cerebral vascular accident) Grandfather Cancer pancreatic Father Heart disease Hypertension Hyperlipidemia Grandfather Heart disease CVA (cerebral vascular accident) Social History Smoking Status: Never smoker alcohol intake: never substance use type: does not use caffeine: Yes (Occasionally) Type: coffee what type of physical activity do you participate in: walking frequency: 3-4 times per week HPI ADJUSTMENT Chief Complaint: Back pain Visit Number: 9 Details: Melany is a 29 year old female who is here for adjustment. Pt. advises she is currently 38 weeks . Pt. continues to c/o pelvis, hips and tailbone pain and pressure. She states it fluctuates from right to left depending on baby's position. She alos continues experience bilateral hand numbness at night when she is sleeping but denies neck pain. She rates her tailbone pain a constant 3-4/10 but increases to 6/10 at times. She continues to wear a belly band for extra support but complains of hip and pelvic pain and pressure. She states walking/ weight bearing contribute to her low back pain. Her neck and upper back get sore at times. She denies new injury, numbness or tingling. She treats pain at home with heat, stretching and rubber ball massage. Melany reports chiropractic adjustments are helpful in relieving her discomfort but it gradually returns. Location: neck and low back Duration: frequent Aggravating or associated factors: work posture, caring for child/ Relieving factors: chiro Pain Quality: aching and dull Exam Musc General: Yes normal gait, joint tenderness and decreased range of motion; No normal posture or muscle weakness Cervical Spine: Yes loss of normal cervical lordosis (left curve), Yes cervical muscular tenderness bilateral lower , Yes cervical spasm right lower trapezius and paracervical muscles and Yes misalignment misalignment: C5, C6 and C7 Thoracic/Lumber: Yes thoracic and lumbar spine normal to inspection, Yes paraspinal tenderness bilaterally in the mid lumbar and in the lower lumbar and on the right greater than left (midthor acic), Yes scoliosis (left cervicothoracic), Yes thoraco-lumbar spasm on the right greater than left (rhomboid, piriformis) and on the left greater than right (upper trap, QL) and Yes misalignment T2, T3, T5, T6, T7, L3, L4, L5, RIL and LIL Sacrum: Yes tenderness bilaterally and Yes misalignment (left) Yes Office Procedures Procedures - Chiropractic Procedures Manipulation: Cervical C6, Lumbar L4, Sacrum (left) and Thoracic T2 and T5 Manipulation: 3-4 regions Patient Response: positive Assessment and Plan Assessment and Plan (1) Segmental and somatic dysfunction of cervical region: Status: Acute (2) Scoliosis: Status: Chronic Qualifiers: Idiopathic scoliosis type: other Scoliosis type: idiopathic Spinal region: cervicothoracic Qualified Code(s): M41.23 - Other idiopathic scoliosis, cervicothoracic region Comment: L cerv (more content not included)... Normal [facility] URINE OB DIP B/Oon Glucose Ql (U) Negative Neg mg/dL [facility] Interpretation and review of laboratory results Normal [facility] Protein.monoclonal (U) [Mass/Vol] Negative Neg mg/dL [facility] CNCOon 01-12-2025 CNCO Letter Text Normal [facility] Chiropractic Reporton 2024 Chiropractic Report [facility] [address] [place] [address] OFFICE VISIT Date of Service: 01/12/25 MR#: [id number] Acct: [id number] Name: MELANY MACE Rep #: [id number] : 1995 Provider: EDUARD Mckinney Age/Sex: 29/F [place] [facility] [place]: Signed Intake Vital Signs 04/20/23 10:30 Height 5 ft 4 in Intake Visit Reasons: ADJUSTMENT Chief Complaint: low back, pelvis, tailbone pain Is patient in pain?: Yes (tailbone) Pain scale (1-10): 4 Allergies mold Allergy (Verified 01/12/25 09:13) unknown ragweed pollen Allergy (Verified 01/12/25 09:13) unknown Medications ???Medication ???Instructions ???Recorded ???Confirmed ???Type mv-mn no.97-folic 180 mcg-dha 25 1 tab PO DAILY pregnan 04/19/22 History mg-herb no.293 25 mg chewable tablet (Alive Daily Support ) loratadine 10 mg tablet (Allergy 10 mg PO DAILY 04/20/23 01/12/25 H istory Relief (loratadine)) sertraline 25 mg tablet 25 mg PO QDAY 12/24/23 01/12/25 Hi story [facility] Medical History Elevated liver enzymes Laceration, obstetrical, second degree Care and examination of lactating mother (spontaneous vaginal delivery) Encounter for elective induction of labor 39 weeks gestation of Shortness of breath Palpitations Chronic neck pain Preventative health care Menstrual irregularity Other vitreous opacities, bilateral Urinary frequency Seasonal allergies Back pain Persistent headaches Surgical History H/O wisdom tooth extraction Family History Grandmother Cancer lung CVA (cerebral vascular accident) Grandfather Cancer pancreatic Father Heart disease Hypertension Hyperlipidemia Grandfather Heart disease CVA (cerebral vascular accident) Social History Smoking Status: Never smoker alcohol intake: never substance use type: does not use caffeine: Yes (Occasionally) Type: coffee what type of physical activity do you participate in: walking frequency: 3-4 times per week HPI ADJUSTMENT Chief Complaint: Back pain Visit Number: 8 Details: Melany is a 29 year old female who is here for adjustment. Pt. advises she is currently 37 weeks . Pt. continues to c/o pelvis, hips and tailbone pain. She states it fluctuates from right to left depending on baby's position. She does experience bilateral hand numbness at night when she is sleeping d/t sleeping on her sides. She rates her tailbone pain a constant 3-4/10 but increases to 6/10 at times. She continues to wear a belly band for extra support but complains of hip and pelvic pain and pressure. She states walking/ weight bearing as well as long, busy days at work on her feet contribute to her pain. She denies new injury, numbness or tingling. She treats pain at home with heat, stretching and rubber ball massage. Melany reports chiropractic adjustments are helpful in relieving her discomfort but it gradually returns. Location: neck and low back Duration: frequent Aggravating or associated factors: work posture, caring for child/ Relieving factors: chiro Pain Quality: aching and dull Exam Musc General: Yes normal gait, joint tenderness and decreased range of motion; No normal posture or muscle weakness Cervical Spine: Yes loss of normal cervical lordosis (left curve), Yes cervical muscular tenderness bilateral lower , Yes cervical spasm right lower trapezius and paracervical muscles and Yes misalignment misalignment: C5, C6 and C7 Thoracic/Lumber: Yes thoracic and lumbar spine normal to inspection, Yes paraspinal tenderness bilaterally in the mid lumbar and in the lower lumbar and on the right greater than left (midthoracic), Yes scoliosis (left cervicothoracic), Yes thoraco-lumbar spasm on the right greater than left (rhomboid, piriformis) and on the left greater than right (upper trap, QL) and Yes misalignment T2, T3, T5, T6, T7, L3, L4, L5 and RIL Sacrum: Yes tenderness and Yes misalignment (right) Yes Office Procedures Procedures - Chiropractic Procedures Manipulation: Cervical C6, Lumbar L4, Sacrum (right) and Thoracic T2 and T5 Manipulation: 3-4 regions Patient Response: positive Assessment and Plan Assessment and Plan (1) Segmental and somatic dysfunction of cervical region: Status: Acute (2) Scoliosis: Status: Chronic Qualifiers: Idiopathic scoliosis type: other Scoliosis type: idiopathic Spinal region: cervicothoracic Qualified Code(s): M41.23 - Other idiopathic scoliosis, cervicothoracic region Comment: L cervicothoracic (3) Segmental and somatic dysfunction o (more content not included)... Normal [facility] ROUTINE, GROUP B ST REPTOCOCCUS BY PCRon 01-08-2025 ROUTINE, GROUP B STREPTOCOCCUS BY PCR Not detected Normal [facility] Comment on above: Performed By: #### G BPCR #### [facility] CLIA [id number] [address] [place] [address] [place] URINE OB DIP B/Oon 5 Glucose Ql (U) Negative Neg mg/dL [facility] Interpretation and review of laboratory results Normal [facility] Protein.monoclonal (U) [Mass/Vol] Negative Neg mg/dL [facility] Chiropractic Reporton 2024 Chiropractic Report [facility] [address] [place], [place] [id number] OFFICE VISIT Date of Service: 01/05/25 MR#: [id number] Acct: [id number] Name: MELANY MACE Rep #: [id number] : 1995 Provider: EDUARD Mckinney Age/Sex: 29/F [place] [facility] [place]: Signed Intake Vital Signs 04/20/23 10:30 Height 5 ft 4 in Intake Visit Reasons: ADJUSTMENT Chief Complaint: neck and pain Is patient in pain?: Yes (pelvis, hips and tailbone) Pain scale (1-10): 3 Allergies mold Allergy (Verified 01/05/25 15:36) unknown ragweed pollen Allergy (Verified 01/05/25 15:36) unknown Medications ???Medication ???Instructions ???Recorded ???Confirmed ???Type mv-mn no.97-folic 180 mcg-dha 25 1 tab PO DAILY pregnan 04/19/22 History mg-herb no.293 25 mg chewable tablet (Alive Daily Support ) loratadine 10 mg tablet (Allergy 10 mg PO DAILY 04/20/23 01/05/25 H istory Relief (loratadine)) sertraline 25 mg tablet 25 mg PO QDAY 12/24/23 01/05/25 Hi story [facility] Medical History Elevated liver enzymes Laceration, obstetrical, second degree Care and examination of lactating mother (spontaneous vaginal delivery) Encounter for elective induction of labor 39 weeks gestation of Shortness of breath Palpitations Chronic neck pain Preventative health care Menstrual irregularity Other vitreous opacities, bilateral Urinary frequency Seasonal allergies Back pain Persistent headaches Surgical History H/O wisdom tooth extraction Family History Grandmother Cancer lung CVA (cerebral vascular accident) Grandfather Cancer pancreatic Father Heart disease Hypertension Hyperlipidemia Grandfather Heart disease CVA (cerebral vascular accident) Social History Smoking Status: Never smoker alcohol intake: never substance use type: does not use caffeine: Yes (Occasionally) Type: coffee what type of physical activity do you participate in: walking frequency: 3-4 times per week HPI ADJUSTMENT Chief Complaint: upper back, pelvis, hip pain Visit Number: 7 Details: Melany is a 29 year old female who is here for adjustment. Pt. advises she is currently 36 weeks . Pt. reports her neck and upper back pain has improved since her last adjustment but she does experience bilateral hand numbness at night when she is sleeping d/t sleeping on her sides. She continues to c/o pelvis, hips and tailbone pain. She states it fluctuates from right to left depending on baby's position. She rates her pain a constant 3-4/10 but increases to 6/10 at times. She continues to wear a belly band for extra support but complains of hip and pelvic pain and pressure. She states walking/ weight bearing as well as long, busy days at work on her feet contribute to her pain. She denies new injury, numbness or tingling. She treats pain at home with heat, stretching and rubber ball massage. Melany reports chiropractic adjustments are helpful in relieving her discomfort but it gradually returns. Location: neck and low back Duration: frequent Aggravating or associated factors: work posture, caring for child/ Relieving factors: chiro Pain Quality: aching and dull Exam Musc General: Yes normal gait, joint tenderness and decreased range of motion; No normal posture or muscle weakness Cervical Spine: Yes loss of normal cervical lordosis (left curve), Yes cervical muscular tenderness bilateral lower , Yes cervical spasm right upper intrinsics, right lower trapezius and paracervical muscles and Yes misalignment misalignment: C5, C6 and C7 Thoracic/Lumber: Yes thoracic and lumbar spine normal to inspection, Yes paraspinal tenderness bilaterally in the mid lumbar and in the lower lumbar and on the right greater than left (midthoracic), Yes scoliosis (left cervicothoracic), Yes thoraco-lumbar spasm on the right greater than left (rhomboid, piriformis) and on the left greater than right (upper trap, QL) and Yes misalignment T2, T3, T5, T6, T7, L3, L4, L5 and RIL Sacrum: Yes tenderness and Yes misalignment (right) Yes Office Procedures Procedures - Chiropractic Procedures Manipulation: Cervical C6, Lumbar L4, Sacrum (right) and Thoracic T2 and T5 Manipulation: 3-4 regions Patient Response: positive Assessment and Plan Assessment and Plan (1) Segmental and somatic dysfunction of cervical region: Status: Acute (2) Scoliosis: Status: Chronic Qualifiers: Idiopathic scoliosis type: other Scoliosis type: idiopathic Spinal region: cervicothoracic Qualified Code(s): M41.23 - Othe (more content not included)... Normal [facility] Chiropractic Reporton 2024 Chiropractic Report [facility] [address] [place] [address] OFFICE VISIT Date of Service: 12/29/24 MR#: [id number] Acct: [id number] Name: MELANY MACE Rep #: [id number] : 1995 Provider: EDUARD Mckinney Age/Sex: 29/F [place] [facility] [place]: Signed Intake Vital Signs 04/20/23 10:30 Height 5 ft 4 in Intake Visit Reasons: ADJUSTMENT Chief Complaint: neck and pain Is patient in pain?: Yes Pain scale (1-10): 3 Allergies mold Allergy (Verified 12/29/24 14:34) unknown ragweed pollen Allergy (Verified 12/29/24 14:34) unknown Medications ???Medication ???Instructions ???Recorded ???Confirmed ???Type mv-mn no.97-folic 180 mcg-dha 25 1 tab PO DAILY pregnan 04/19/22 History mg-herb no.293 25 mg chewable tablet (Alive Daily Support ) loratadine 10 mg tablet (Allergy 10 mg PO DAILY 04/20/23 12/29/24 H istory Relief (loratadine)) sertraline 25 mg tablet 25 mg PO QDAY 12/24/23 12/29/24 [facility] History Elevated liver enzymes Laceration, obstetrical, second degree Care and examination of lactating mother (spontaneous vaginal delivery) Encounter for elective induction of labor 39 weeks gestation of Shortness of breath Palpitations Chronic neck pain Preventative health care Menstrual irregularity Other vitreous opacities, bilateral Urinary frequency Seasonal allergies Back pain Persistent headaches Surgical History H/O wisdom tooth extraction Family History Grandmother Cancer lung CVA (cerebral vascular accident) Grandfather Cancer pancreatic Father Heart disease Hypertension Hyperlipidemia Grandfather Heart disease CVA (cerebral vascular accident) Social History Smoking Status: Never smoker alcohol intake: never substance use type: does not use caffeine: Yes (Occasionally) Type: coffee what type of physical activity do you participate in: walking frequency: 3-4 times per week HPI ADJUSTMENT Chief Complaint: upper back, pelvis, hip pain Visit Number: 6 Details: Melany is a 29 year old female who is here for adjustment. Pt. advises she is currently 35 weeks . Pt. reports her neck and upper back pain has improved since her last adjustment. She states her bilateral SI joints have been painful recently. She states it fluctuates from right to left depending on baby's position. She states she was getting the baby's room ready and sitting on the floor putting things together which aggravated her low back /SI joint pain. She rates her pain a constant 3-4/10 but increases to 6/10 at times. She continues to wear a belly band for extra support but complains of hip and pelvic pain and pressure. She states walking/ weight bearing aggravates her pain as well as long, busy days at work which contribute to her pain. She denies new injury, numbness or tingling. She treats pain at home with heat, stretching and rubber ball massage. Melany reports chiropractic adjustments are helpful in relieving her discomfort but it gradually returns. Location: neck and low back Duration: frequent Aggravating or associated factors: work posture, caring for child/ Relieving factors: chiro Pain Quality: aching and dull Exam Musc General: Yes normal gait, joint tenderness and decreased range of motion; No normal posture or muscle weakness Cervical Spine: Yes loss of normal cervical lordosis (left curve), Yes cervical muscular tenderness bilateral lower , Yes cervical spasm right upper intrinsics, right lower trapezius and paracervical muscles and Yes misalignment misalignment: C5, C6 and C7 Thoracic/Lumber: Yes thoracic and lumbar spine normal to inspection, Yes paraspinal tenderness bilaterally in the mid lumbar and in the lower lumbar and on the right greater than left (midthoracic), Yes scoliosis (left cervicothoracic), Yes thoraco-lumbar spasm on the right greater than left (rhomboid, piriformis) and on the left greater than right (upper trap, QL) and Yes misalignment T2, T3, T5, T6, T7, L3, L4, L5 and RIL Sacrum: Yes tenderness and Yes misalignment (right) Yes Office Procedures Procedures - Chiropractic Procedures Manipulation: Cervical C5, Lumbar L3, Sacrum (right) and Thoracic T3 and T7 Manipulation: 3-4 regions Patient Response: positive Assessment and Plan Assessment and Plan (1) Segmental and somatic dysfunction of cervical region: Status: Acute (2) Scoliosis: Status: Chronic Qualifiers: Idiopathic scoliosis type: other Scoliosis type: idiopathic Spinal region: cervicothoraci (more content not included)... Normal [facility] URINE OB DIP B/Oon 5 Glucose Ql (U) Negative Neg mg/dL [facility] Interpretation and review of laboratory results Normal [facility] Protein.monoclonal (U) [Mass/Vol] Negative Neg mg/dL [facility] Chiropractic Reporton 2024 Chiropractic Report [facility] [address] [place] [address] OFFICE VISIT Date of Service: 12/22/24 MR#: [id number] Acct: [id number] Name: MELANY MACE Rep #: [id number] : 1995 Provider: EDUARD Mckinney Age/Sex: 29/F [place] [facility] [place]: Signed Intake Vital Signs 04/20/23 10:30 Height 5 ft 4 in Intake Visit Reasons: ADJUSTMENT Chief Complaint: neck and pain Is patient in pain?: Yes (upper back. hips, pelvis) Pain scale (1-10): 4 Allergies mold Allergy (Verified 11/24/24 09:48) unknown ragweed pollen Allergy (Verified 11/24/24 09:48) unknown [facility] Medical History Elevated liver enzymes Laceration, obstetrical, second degree Care and examination of lactating mother (spontaneous vaginal delivery) Encounter for elective induction of labor 39 weeks gestation of Shortness of breath Palpitations Chronic neck pain Preventative health care Menstrual irregularity Other vitreous opacities, bilateral Urinary frequency Seasonal allergies Back pain Persistent headaches Surgical History H/O wisdom tooth extraction Family History Grandmother Cancer lung CVA (cerebral vascular accident) Grandfather Cancer pancreatic Father Heart disease Hypertension Hyperlipidemia Grandfather Heart disease CVA (cerebral vascular accident) Social History Smoking Status: Never smoker alcohol intake: never substance use type: does not use caffeine: Yes (Occasionally) Type: coffee what type of physical activity do you participate in: walking frequency: 3-4 times per week HPI ADJUSTMENT Chief Complaint: upper back, pelvis, hip pain Visit Number: 5 Details: Melany is a 29 year old female who is here for adjustment. Pt. advises she is currently 34 weeks . Pt. complains of pain from her neck to her upper back and across her shoulder blades equal bilaterally. She rates her pain 4/10 and states it feels compressed. She states her bilateral SI joints has improved since wearing a belly band. She also complains of hip and pelvic pain and pressure. Her hips have been very painful and they feel out of alignment. She states walking/ weight bearing aggravates her pain as well as long, busy days at work which contribute to her pain. She denies new injury, numbness or tingling. She treats pain at home with heat, stretching and rubber ball massage. Melany reports chiropractic adjustments are helpful in relieving her discomfort but it gradually returns. Location: neck and low back Duration: frequent Aggravating or associated factors: work posture, caring for child/ Relieving factors: chiro Pain Quality: aching and dull Exam Musc General: Yes normal gait, joint tenderness and decreased range of motion; No normal posture or muscle weakness Cervical Spine: Yes loss of normal cervical lordosis (left curve), Yes cervical muscular tenderness bilateral lower , Yes cervical spasm right upper intrinsics, right lower trapezius and paracervical muscles and Yes misalignment misalignment: C5, C6 and C7 Thoracic/Lumber: Yes thoracic and lumbar spine normal to inspection, Yes paraspinal tenderness bilaterally in the mid lumbar and in the lower lumbar and on the right greater than left (midthoracic), Yes scoliosis (left cervicothoracic), Yes thoraco-lumbar spasm on the right greater than left (rhomboid, piriformis) and on the left greater than right (upper trap, QL) and Yes misalignment T2, T3, T5, T6, T7, L3, L4, L5 and RIL Sacrum: Yes tenderness and Yes misalignment (right) Yes Office Procedures Procedures - Chiropractic Procedures Manipulation: Cervical C6, Lumbar L3, Sacrum (right) and Thoracic T3 and T6 Manipulation: 3-4 regions Patient Response: positive Assessment and Plan Assessment and Plan (1) Segmental and somatic dysfunction of cervical region: Status: Acute (2) Scoliosis: Status: Chronic Qualifiers: Idiopathic scoliosis type: other Scoliosis type: idiopathic Spinal region: cervicothoracic Qualified Code(s): M41.23 - Other idiopathic scoliosis, cervicothoracic region Comment: L cervicothoracic (3) Segmental and somatic dysfunction of thoracic region: Status: Acute (4) Segmental and somatic dysfunction of lumbar region: Status: Acute (5) Segmental and somatic dysfunction of sacral region: Status: Acute Orders: Orders Chiropractic Treatments Today M41.23 - Other idiopathic scoliosis, cervicothoracic region, M99.01 - Segmental and somatic dysfunction of cervical region, M99.02 - Segmental and somatic dysfunction of thoracic region, M99.03 (more content not included)... Normal [facility] Chiropractic Reporton 2024 Chiropractic Report [facility] [address] [place] [address] OFFICE VISIT Date of Service: 11/24/24 MR#: [id number] Acct: [id number] Name: RODRIMELANY WARREN Rep #: [id number] : 1995 Provider: EDUARD Mckinney Age/Sex: 29/F [place] [facility] [place]: Signed Intake Vital Signs 04/20/23 10:30 Height 5 ft 4 in Intake Visit Reasons: ADJUSTMENT Chief Complaint: neck and pain Is patient in pain?: Yes (LBP, SI joints) Pain scale (1-10): 7 Allergies mold Allergy (Verified 11/24/24 09:48) unknown ragweed pollen Allergy (Verified 11/24/24 09:48) unknown Medications ???Medication ???Instructions ???Recorded ???Confirmed ???Type mv-mn no.97-folic 180 mcg-dha 25 1 tab PO DAILY pregnan 04/19/22 History mg-herb no.293 25 mg chewable tablet (Alive Daily Support ) loratadine 10 mg tablet (Allergy 10 mg PO DAILY 04/20/23 11/24/24 H istory Relief (loratadine)) sertraline 25 mg tablet 25 mg PO QDAY 12/24/23 11/24/24 Hi story [facility] Medical History Elevated liver enzymes Laceration, obstetrical, second degree Care and examination of lactating mother (spontaneous vaginal delivery) Encounter for elective induction of labor 39 weeks gestation of Shortness of breath Palpitations Chronic neck pain Preventative health care Menstrual irregularity Other vitreous opacities, bilateral Urinary frequency Seasonal allergies Back pain Persistent headaches Surgical History H/O wisdom tooth extraction Family History Grandmother Cancer lung CVA (cerebral vascular accident) Grandfather Cancer pancreatic Father Heart disease Hypertension Hyperlipidemia Grandfather Heart disease CVA (cerebral vascular accident) Social History Smoking Status: Never smoker alcohol intake: never substance use type: does not use caffeine: Yes (Occasionally) Type: coffee what type of physical activity do you participate in: walking frequency: 3-4 times per week HPI ADJUSTMENT Chief Complaint: neck and low back pain Visit Number: 4 Details: Melany is a 29 year old female who is here for adjustment. Pt. advises she is currently 30 weeks . She complains of neck stiffness that is equal bilaterally. She complains of low back pain that extends into her bilateral SI joints.The pain is constant and at times it's sharp pinching pain. She also complains of pelvic pain and pressure that recently started. Her hips have been very painful and they feel out of alignment. She rates her pain 7/10. She states walking/ weight bearing aggravates her pain as well as long, busy days at work which contribute to her pain. She denies new injury, numbness or tingling. She treats pain at home with heat, stretching and rubber ball massage. Melany reports chiropractic adjustments are helpful in relieving her discomfort but it gradually returns. Location: neck and low back Duration: frequent Aggravating or associated factors: work posture, caring for child/ Relieving factors: chiro Pain Quality: aching and dull Exam Musc General: Yes normal gait, joint tenderness and decreased range of motion; No normal posture or muscle weakness Cervical Spine: Yes loss of normal cervical lordosis (left curve), Yes cervical muscular tenderness right greater than left lower , Yes cervical spasm right upper intrinsics, right lower trapezius and paracervical muscles and Yes misalignment misalignment: C5, C6 and C7 Thoracic/Lumber: Yes thoracic and lumbar spine normal to inspection, Yes paraspinal tenderness bilaterally in the mid lumbar and in the lower lumbar and on the right greater than left (midthoracic), Yes scoliosis (left cervicothoracic), Yes thoraco-lumbar spasm on the right greater than left (rhomboid, piriformis) and on the left greater than right (upper trap, QL) and Yes misalignment T2, T3, T5, T6, T7, L3, L4, L5 and RIL Sacrum: Yes tenderness and Yes misalignment (right) Yes Office Procedures Procedures - Chiropractic Procedures Manipulation: Cervical C6, Lumbar L3, Sacrum (Right) and Thoracic T6 Manipulation: 3-4 regions Patient Response: positive Assessment and Plan Assessment and Plan (1) Segmental and somatic dysfunction of cervical region: Status: Acute (2) Scoliosis: Status: Chronic Qualifiers: Idiopathic scoliosis type: other Scoliosis type: idiopathic Spinal region: cervicothoracic Qualified Code(s): M41.23 - Other idiopathic scoliosis, cervicothoracic region Comment: L cervicothoracic (3) Segmental and somatic dysfunction of thoraci (more content not included)... Normal [facility] CBC W Auto Differential pane l (Bld)on 11-10-2024 Basophils (Bld) [#/Vol] 0.03 10*3/uL Normal <0.11 [facility] Comment on above: Order Comment: Speci men Type: BLOOD SPECIMENOrdering Facility: [facility] Address: [address] [place] [address] Performed By: #### 5 7021-8 ####[facility] [id number] [place] [address] [place] Basophils/100 WBC (Bld) 0.3 % Normal [facility] Comment on above: Order Comment: Speci men Type: BLOOD SPECIMENOrdering Facility: [facility] Address: [address] [place] [address] Performed By: #### 5 7021-8 ####[facility] [id number] [place] [address] [place] Differential cell count method Nom (Bld) Auto Normal [facility] Comment on above: Order Comment: Speci men Type: BLOOD SPECIMENOrdering Facility: [facility] Address: [address] [place] [address] Performed By: #### 5 7021-8 ####[facility] [id number] [place] [address] [place] Eosinophils (Bld) [#/Vol] 0.14 10*3/uL Normal <0.46 [facility] Comment on above: Order Comment: Speci men Type: BLOOD SPECIMENOrdering Facility: [facility] Address: [address] [place] [address] Performed By: #### 5 7021-8 ####[facility] [id number] [place] [address] [place] Eosinophils/100 WBC (Bld) 1.5 % Normal [facility] Comment on above: Order Comment: Speci men Type: BLOOD SPECIMENOrdering Facility: [facility] Address: [address] [place] [address] Performed By: #### 5 7021-8 ####[facility] [id number] [place] [address] [place] Erythrocyte distribution width (RBC) [Ratio] 13.3 % Normal 11.5-15.0 [facility] Comment on above: Order Comment: Speci men Type: BLOOD SPECIMENOrdering Facility: [facility] Address: [address] [place] [address] Performed By: #### 5 7021-8 ####[facility] [id number] [place] [address] [place] Hematocrit (Bld) [Volume fraction] 33.1 % Low 36.0-46.0 [facility] Comment on above: Order Comment: Speci men Type: BLOOD SPECIMENOrdering Facility: [facility] Address: [address] [place] [address] Performed By: #### 5 7021-8 ####[facility] [id number] [place] [address] [place] Hemoglobin (Bld) [Mass/Vol] 11.4 g/dL Low 11.5-15.5 [facility] Comment on above: Order Comment: Speci men Type: BLOOD SPECIMENOrdering Facility: [facility] Address: [address] [place] [address] Performed By: #### 5 7021-8 ####[facility] [id number] [place] [address] [place] Immature granulocytes (Bld) [#/Vol] 0.09 10*3/uL Normal <0.10 [facility] Comment on above: Order Comment: Speci men Type: BLOOD SPECIMENOrdering Facility: [facility] Address: [address] [place] [address] Performed By: #### 5 7021-8 ####[facility] [id number] [place] [address] [place] Immature granulocytes/100 WBC (Bld) 1.0 % Normal [facility] Comment on above: Order Comment: Speci men Type: BLOOD SPECIMENOrdering Facility: [facility] Address: [address] [place] [address] Performed By: #### 5 7021-8 ####[facility] MARCIANCMICHAEL [id number] [place] [address] [place] Lymphocytes (Bld) [#/Vol] 2.18 10*3/uL Normal 1.00-4.00 [facility] Comment on above: Order Comment: Speci men Type: BLOOD SPECIMENOrdering Facility: [facility] Address: [address] [place] [address] Performed By: #### 5 7021-8 ####[facility] [id number] [place] [address] [place] Lymphocytes/100 WBC (Bld) 23.6 % Normal [facility] Comment on above: Order Comment: Speci men Type: BLOOD SPECIMENOrdering Facility: [facility] Address: [address] [place] [address] Performed By: #### 5 7021-8 ####[facility] DANIEMARYVILLENCRAFIA [id number] [place] [address] [place] MCH (RBC) [Entitic mass] 30.6 pg Normal 26.0-34.0 [facility] Comment on above: Order Comment: Speci men Type: BLOOD SPECIMENOrdering Facility: [facility] Address: [address] [place] [address] Performed By: #### 5 7021-8 ####[facility] [id number] [place] [address] [place] MCHC (RBC) [Mass/Vol] 34.4 g/dL Normal 30.5-36.0 [facility] Comment on above: Order Comment: Speci men Type: BLOOD SPECIMENOrdering Facility: [facility] Address: [address] [place] [address] Performed By: #### 5 7021-8 ####[facility] DANIEMARYVILLENCLIA [id number] [place] [address] [place] MCV (RBC) [Entitic vol] 89.0 fL Normal 80.0-100.0 [facility] Comment on above: Order Comment: Speci men Type: BLOOD SPECIMENOrdering Facility: [facility] Address: [address] [place] [address] Performed By: #### 5 7021-8 ####[facility] [id number] [place] [address] [place] Monocytes (Bld) [#/Vol] 0.60 10*3/uL Normal <0.87 [facility] Comment on above: Order Comment: Speci men Type: BLOOD SPECIMENOrdering Facility: [facility] Address: [address] [place] [address] Performed By: #### 5 7021-8 ####[facility] [id number] [place] [address] [place] Monocytes/100 WBC (Bld) 6.5 % Normal [facility] Comment on above: Order Comment: Speci men Type: BLOOD SPECIMENOrdering Facility: [facility] Address: [address] [place] [address] Performed By: #### 5 7021-8 ####[facility] [id number] [place] [address] [place] Neutrophils (Bld) [#/Vol] 6.18 10*3/uL Normal 1.45-7.50 [facility] Comment on above: Order Comment: Speci men Type: BLOOD SPECIMENOrdering Facility: [facility] Address: [address] [place] [address] Performed By: #### 5 7021-8 ####[facility] [id number] [place] [address] [place] Neutrophils/100 WBC (Bld) 67.1 % Normal [facility] Comment on above: Order Comment: Speci men Type: BLOOD SPECIMENOrdering Facility: [facility] Address: [address] [place] [address] Performed By: #### 5 7021-8 ####[facility] [id number] [place] [address] [place] Nucleated RBC (Bld) [#/Vol] 10*3/uL Normal <0.01 [facility] Comment on above: Order Comment: Speci men Type: BLOOD SPECIMENOrdering Facility: [facility] [facility]OSP[facility] Address: [address] [place] [address] Performed By: #### 5 7021-8 ####[facility] [id number] [place] [address] [place] Nucleated RBC/100 WBC (Bld) [Ratio] 0.0 /100 WBC Normal [facility] Comment on above: Order Comment: Speci men Type: BLOOD SPECIMENOrdering Facility: [facility] Address: [address] [place] [address] Performed By: #### 5 7021-8 ####[facility] [id number] [place] [address] [place] Platelet mean volume (Bld) [Entitic vol] 8.8 fL Low 9.0-12.7 [facility] Comment on above: Order Comment: Speci men Type: BLOOD SPECIMENOrdering Facility: [facility] Address: [address] [place] [address] Performed By: #### 5 7021-8 ####[facility] [id number] [place] [address] [place] Platelets (Bld) [#/Vol] 250 10*3/uL Normal 150-400 [facility] Comment on above: Order Comment: Speci men Type: BLOOD SPECIMENOrdering Facility: [facility] Address: [address] [place] [address] Performed By: #### 5 7021-8 ####[facility] [id number] [place] [address] [place] RBC (Bld) [#/Vol] 3.72 10*6/uL Low 3.90-5.20 [facility] Comment on above: Order Comment: Speci men Type: BLOOD SPECIMENOrdering Facility: [facility] Address: [address] [place] [address] Performed By: #### 5 7021-8 ####[facility] [id number] [place] [address] [place] WBC (Bld) [#/Vol] 9.22 10*3/uL Normal 3.70-11.00 [facility] Comment on above: Order Comment: Speci men Type: BLOOD SPECIMENOrdering Facility: [facility] Address: [address] [place] [address] Performed By: #### 5 7021-8 ####[facility] [id number] [place] [address] [place] GESTATIONAL GLUCOSE SCREEN, 1-HOUR, 50 GRAM, NON-FASTINGon 11-10-2024 Glucose [Mass/Vol] 129 mg/dL Normal 74-134 [facility] Comment on above: Order Comment: Speci men Type: BLOOD SPECIMENOrdering Facility: [facility] Address: [address] [place] [address] Result Comment: [facility] Congress of Obstetricians and Gynecologists (Arianne/Peggy) guidelines state a gestational diabetes mellitus positive screen is made, in women not previously diagnosed with overt diabetes, when the 1 hr plasma glucose level is equal to or above 140 mg/dL. The [facility] and [facility] [place] recommends a 135 mg/dL cutoff. Performed By: #### G LTGST ####[facility] [id number] [place] [id number] [place] Reagin and Treponema pallidu m IgG and IgM [Interp]on 11-10-2024 T. pallidum IgG+IgM IA Ql (S) Non-Reactive Normal Nonreactive [facility] Comment on above: Order Comment: Speci men Type: BLOOD SPECIMENOrdering Facility: [facility] Address: [address] [place] [address] Performed By: #### 7 3752-8, MICRO ####[facility] LABCLIA [id number] [place] [address] [place] Reagin+T pallidum IgG+IgM Se rPl-Impon 11-10-2024 Reagin and Treponema pallidum IgG and IgM [Interp] Cannot exclude recent Treponemal infection if specimen collected within 7-10 days after appearance of suspect lesions or 2-3 weeks after an exposure. Clinical correlation is required. Normal [facility] Comment on above: Order Comment: Speci men Type: BLOOD SPECIMENOrdering Facility: [facility] Address: [address] [place] [address] Performed By: #### 7 3752-8, MICRO ####[facility] LABCLIA [id number] [place] [address] [place] T4 Free SerPl-mCncon 025 Free T4 [Mass/Vol] 0.8 ng/dL Low 0.9-1.7 [facility] Comment on above: Order Comment: Speci men Type: BLOOD SPECIMENOrdering Facility: [facility] Address: [address] [place] [address] Performed By: #### 3 024-7, 3016-3 ####[facility] LABCL[facility] [id number] [place] [address] [place] THYROID PEROXIDASE ANTIBODYo n 11-10-2024 TPO Ab Qn [IU]/mL Normal <5.6 [facility] Comment on above: Order Comment: Speci men Type: BLOOD SPECIMENOrdering Facility: [facility] Address: [address] [place] [address] Result Comment: Thyr oid Peroxidase Antibody test is used as an aid in diagnosis of autoimmune thyroid disease. Clinical correlation is required. Performed By: #### 7 3752-8, MICRO ####[facility] LABIA [id number] [place] [address] [place] TSH SerPl-aCncon 11-10-2024 TSH Qn 1.840 m[IU]/L Normal 0.270-4.200 [facility] Comment on above: Order Comment: Speci men Type: BLOOD SPECIMENOrdering Facility: [facility] Address: [address] [place] [address] Result Comment: If t he patient is , TSH reference range varies by gestational period: First Trimester (weeks 9-12): 0.180-2.990 mIU/L Second Trimester: 0.110-3.980 mIU/L Third Trimester: 0.480-4.710 mIU/L Vishal Gillespie et al. A Practical Approach for the Verifications and Determination of Site- and Trimester-Specific Reference Intervals for Thyroid Function tests in . Thyroid, 2019:29:3:412-420. Everardo Berg, et al. 2017 Guidelines of the [place] Thyroid Association for the Diagnosis and Management of Thyroid Disease during and the . Thyroid, 2017:27:3:315-389. Performed By: #### 3 024-7, 3016-3 ####[facility] LABIA [id number] [place] [id number] [place] Chiropractic Reporton 2024 Chiropractic Report [facility] Chiropractic [address] [place] [address] OFFICE VISIT Date of Service: 10/27/24 MR#: [id number] Acct: [id number] Name: MELANY MACE Rep #: [id number] : 1995 Provider: EDUARD Mckinney Age/Sex: 29/F Location: [facility] Status: Signed Intake Vital Signs 04/20/23 10:30 Height 5 ft 4 in Intake Visit Reasons: ADJUSTMENT Chief Complaint: neck and pain Is patient in pain?: Yes (Neck, LBP) Pain scale (1-10): 6 Allergies mold Allergy (Verified 10/27/24 09:16) unknown ragweed pollen Allergy (Verified 10/27/24 09:16) unknown Medications ???Medication ???Instructions ???Recorded ???Confirmed ???Type mv-mn no.97-folic 180 mcg-dha 25 1 tab PO DAILY pregnan 04/19/22 History mg-herb no.293 25 mg chewable tablet (Alive Daily Support ) loratadine 10 mg tablet (Allergy 10 mg PO DAILY 04/20/23 10/27/24 H istory Relief (loratadine)) sertraline 25 mg tablet 25 mg PO QDAY 12/24/23 10/27/24 Hi story PFS Medical History Elevated liver enzymes Laceration, obstetrical, second degree Care and examination of lactating mother (spontaneous vaginal delivery) Encounter for elective induction of labor 39 weeks gestation of Shortness of breath Palpitations Chronic neck pain Preventative health care Menstrual irregularity Other vitreous opacities, bilateral Urinary frequency Seasonal allergies Back pain Persistent headaches Surgical History H/O wisdom tooth extraction Family History Grandmother Cancer lung CVA (cerebral vascular accident) Grandfather Cancer pancreatic Father Heart disease Hypertension Hyperlipidemia Grandfather Heart disease CVA (cerebral vascular accident) Social History Smoking Status: Never smoker alcohol intake: never substance use type: does not use caffeine: Yes (Occasionally) Type: coffee what type of physical activity do you participate in: walking frequency: 3-4 times per week HPI ADJUSTMENT Chief Complaint: neck and low back pain Visit Number: 4 Details: Melany is a 29 year old female who is here for adjustment. Pt. advises she is currently 26 weeks . She complains of neck pain that is equal bilaterally. She complains of low back pain that is worse on the right side. The pain extends into her right SI joint. When she walks or goes from a seated to standing position she experiences a sharp pinching pain. Her hips have been very painful and they feel out of alignment. She rates her neck pain 2/10 and her low back pain 6/10. She states walking/ weight bearing aggravates her pain as well as long, busy days at work which contribute to her pain. She denies new injury, numbness or tingling. She treats pain at home with heat, stretching and rubber ball massage. Melany reports chiropractic adjustments are helpful in relieving her discomfort but it gradually returns. Location: neck and low back Duration: intermittent Aggravating or associated factors: work posture, caring for child/ Relieving factors: chiro Pain Quality: aching and dull Exam Musc General: Yes normal gait, joint tenderness and decreased range of motion; No normal posture or muscle weakness Cervical Spine: Yes loss of normal cervical lordosis (left curve), Yes cervical muscular tenderness (improving) bilateral diffuse , Yes cervical spasm right upper intrinsics, right lower trapezius and paracervical muscles and Yes misalignment misalignment: C1, C5, C6 and C7 Thoracic/Lumber: Yes thoracic and lumbar spine normal to inspection, Yes paraspinal tenderness bilaterally in the mid lumbar and in the lower lumbar and on the right greater than left (midthoracic), Yes scoliosis (left cervicothoracic), Yes thoraco-lumbar spasm on the right greater than left (rhomboid, piriformis) and on the left greater than right (upper trap, QL) and Yes misalignment T2, T3, T5, T6, T7, L3, L4, L5 and RIL Sacrum: Yes tenderness and Yes misalignment (right) Yes Office Procedures Procedures - Chiropractic Procedures Manipulation: Cervical C2 and C6, Lumbar L3, Sacrum (Right ) and Thoracic T6 Manipulation: 3-4 regions Patient Response: positive Assessment and Plan Assessment and Plan (1) Segmental and somatic dysfunction of cervical region: Status: Acute (2) Scoliosis: Status: Chronic Qualifiers: Idiopathic scoliosis type: other Scoliosis type: idiopathic Spinal region: cervicothoracic Qualified Code(s): M41.23 - Other idiopathic scoliosis, cervicothoracic region Comment: L cervicothoracic (3) Segmen (more content not included)... 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 MELANY MACE : 1995 Age: 29 years Gender: F Primary rhythm: sinus. Height: 162.60 cm BSA: 1.79 m Weight: 70.76 kg BMI: 26.8 kg/m Heart rate 91 bpm Blood pressure 114/67 mmHg Color Doppler was utilized to interrogate the cardiac valves assessed and spectral Doppler was utilized to determine the flow velocities and pressure gradients reported in this exam. Myocardial strain analysis was performed in this exam to aid in the assessment of cardiac function. MEASUREMENTS: Value Indexed Normal Max aortic dimension 2.1 cm Ao < 3.8 Left atrial volume 38 ml (biplane A-L) 21 ml/m Derrell <= 34 LV ID (diastole) 4.0 cm (2D) 2.24 cm/m LV ID (systole) 2.7 cm (2D) 1.51 cm/m IVS, leaflet tips 0.8 cm (2D) Posterior wall thickness 1.0 cm (2D) Left ventricular mass 110 g (2D) 62 g/m Global peak long strain -19.2 % LV stroke volume 45 ml (2D biplane) LV end diastolic volume 72 ml (2D biplane) 40.5 ml/m 29<=EDVi<62 LV end systolic volume 28 ml (2D biplane) 15.5 ml/m Ejection Fraction 62 % (2D biplane) EF > 54 FINDINGS: LEFT VENTRICLE The left ventricle is normal in size. Left ventricular systolic function is normal. Global LV myocardial strain is normal. Left ventricular diastolic function was not evaluated due to E/a fusion. Wall Motion: All scored segments are normal. RIGHT VENTRICLE The right ventricle is normal in size. Right ventricular systolic function is normal. RV systolic tissue Doppler velocity is 15.0 cm/s. Tricuspid annular displacement is 2.2 cm. Estimated right ventricular systolic pressure is likely underestimated due to a weak or incomplete tricuspid regurgitation signal and is, at least, 21 mmHg consistent with normal pulmonary artery pressures. Estimated right atrial pressure is 3 mmHg (although IVC not seen). LEFT ATRIUM The left atrial cavity is normal in size. RIGHT ATRIUM The right atrial cavity is normal in size. Inferior Vena Cava: The inferior vena cava appears normal measuring 0.9 cm. MITRAL VALVE The mitral valve leaflets are structurally normal. There is no mitral valve regurgitation. TRICUSPID VALVE The tricuspid valve leaflets are structurally normal. There is trace tricuspid valve regurgitation. AORTIC VALVE The aortic valve cusps are structurally normal. There is no aortic valve stenosis. There is no aortic valve regurgitation. Tricuspid aortic valve. The peak gradient is 9 mmHg (peak velocity = 153.8 cm/s). PULMONIC VALVE The pulmonic valve cusps are structurally normal. There is trace pulmonic valve regurgitation. AORTA The visualized aorta is normal in size. Measurements - Mid ascending aorta 2.1 cm. INTERATRIAL SEPTUM There is no evidence of intracardiac shunting as detected by Doppler. PERICARDIUM There is no pericardial effusion. CONCLUSIONS: - Exam indication: Palpitations - The left ventricle is normal in size. Left ventricular systolic function is normal. EF = 62 5% (2D biplane) Left ventricular diastolic function was not evaluated due to E/a fusion. - The right ventricle is normal in size. Right ventricular systolic function is normal. - There are no significant valvular abnormalities. - The patient has not had a prior CC echocardiographic exam for comparison. * * * Final * * * [facility] : [id number] amicsSISUID Normal [facility] CNOVon 10-06-2024 CNOV Office Visit (CARDWS ) MELANY MACE ([id number]) 1995 F [facility] Date Time Provider Department 10/06/24 1:20 PM GALA VIZCARRA During your visit today, we recorded the following information about you: Pulse Respiration Blood pressure Weight 111/minute 12/minute 130/56 70.8 kg Height 1.626 m Gala Vizcarra MD 10/06/2024 1:57 PM Signed Gala Vizcarra MD Interventional Cardiology [address] [place] [address] [id number] Chief Complaint Patient presents with: New Patient: palpitations x 3 months comes on anytime HISTORY OF PRESENT ILLNESS: Ms. 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 she was evaluated with her first for the same problem she had an echocardiogram at that time was completely normal No definitive diagnosis was made Recently she has been having palpitation Holter monitor shows wide-complex tachycardia 1 episode Review of the Holter monitor is likely supraventricular tachycardia with aberrant conduction Denies chest pain or shortness of breath no signs or symptoms of congestive heart failure Cardiac Risk Factors family history of CAD PAST MEDICAL HISTORY Diagnosis Date Mononucleosis 10/27/2014 Post depression 06/16/2024 Scoliosis of cervical spine Unspecified asthma(493.90) has not used inhaler since 2016 PAST SURGICAL HISTORY Procedure Laterality Date EXTRACTION, ERUPTED TOOTH OR EXPOSED ROOT (ELEVATION AND/OR FORCEPS REMOVAL) FAMILY HISTORY Problem Relation Age of Onset Skin Cancer Mother Heart Father triple bypass 50 other (htn) Father Hyperlipidemia Father Lung Cancer Maternal Grandmother other (bladder cancer) Maternal Grandfather No Known Problems Paternal Grandmother Heart Paternal Grandfather Stroke Paternal Grandfather Dementia Paternal Grandfather Social History Tobacco Use Smoking status: Never Smokeless tobacco: Never Vaping Use Vaping status: Never Used Substance Use Topics Alcohol use: Yes Comment: socially Drug use: No ALLERGIES Allergen Reactions Mold Ragweed Medications: Current Outpatient Medications Medication Sig Dispense Refill ergocalciferol, vitamin D2, (VITAMIN D2 ORAL) Take 2,000 Units by mouth once daily. pantoprazole DR (PROTONIX) 20 mg tablet Take 1 tablet by mouth once daily. 30 tablet 4 promethazine (PHENERGAN) 12.5 mg tablet Take 1-2 tablets by mouth every 6 hours as needed for nausea/vomiting. 90 tablet 2 sertraline (ZOLOFT) 25 mg tablet Take 1 tablet by mouth once daily. 90 tablet 3 prental multivitamin 27 mg iron- 800 mcg tablet Take 1 tablet by mouth once daily. No current facility-administered medications for this visit. Review of Systems Constitutional: Negative for chills, diaphoresis, fever, malaise/fatigue and weight loss. HENT: Negative for congestion, ear discharge, ear pain, hearing loss, nosebleeds, sinus pain, sore throat and tinnitus. Eyes: Negative for blurred vision, double vision, photophobia, pain, discharge and redness. Respiratory: Negative for cough, hemoptysis, sputum production, shortness of breath, wheezing and stridor. Cardiovascular: Positive for palpitations. Negative for chest pain, orthopnea, claudication, leg swelling and PND. Gastrointestinal: Negative for abdominal pain, blood in stool, constipation, diarrhea, heartburn, melena, nausea and vomiting. Genitourinary: Negative for dysuria, flank pain, frequency, hematuria and urgency. Musculoskeletal: Negative for back pain, falls, joint pain, myalgias and neck pain. Skin: Negative for itching and rash. Neurological: Negative for dizziness, tingling, tremors, sensory change, speech change, focal weakness, seizures, loss of consciousness, weakness and headaches. Endo/Heme/Allergies: Negative for environmental allergies and polydipsia. Does not bruise/bleed easily. Psychiatric/Behaviora l: Negative for depression, hallucinations, memory loss, substance abuse and suicidal ideas. The patient is not nervous/anxious and does not have insomnia. Physical Examination: Vitals:BP 130/56 Pulse 111 Resp 12 Ht 5' 4 (1.63m) Wt 156 lb (70.8kg) SpO2 100% LMP 04/20/2024 BMI 26.76 kg/(m2). BP w/Orthostatic Vitals Date and Time Orthostatic BP Orthostatic Pulse BP Pulse BP Position BP Site BP Cuff Size 10/06/24 1309 -- -- 130/56 111 Sitting Right Arm Regular Adult Peak Flow Date and Time PF Resp 10/06/24 1309 -- 12 Last 2 Encounter Wt Readings: Date: Wt: 10/06/2024 156 lb (70.8 kg) 09/17/2024 152 lb 6.4 oz (69.1 kg) Physical Exam Constitutional: General: She is not in acute distress. Appearance: She is not diaphoretic. HENT: Head: Normocephalic and atraumatic. R (more content not included)... Normal [facility] Chiropractic Reporton 2024 Chiropractic Report [facility] Chiropractic [facility] [place] [address] OFFICE VISIT Date of Service: 09/29/24 MR#: [id number] Acct: [id number] Name: MELANY MAEC Rep #: [id number] : 1995 Provider: EDUARD Mckinney Age/Sex: 29/F [place] [facility] [place]: Signed Intake Vital Signs 04/20/23 10:30 Height 5 ft 4 in Intake Visit Reasons: ADJUSTMENT Chief Complaint: neck and pain Is patient in pain?: Yes (Neck, LBP) Pain scale (1-10): 4 Allergies mold Allergy (Verified 09/29/24 09:47) unknown ragweed pollen Allergy (Verified 09/29/24 09:47) unknown Medications ???Medication ???Instructions ???Recorded ???Confirmed ???Type mv-mn no.97-folic 180 mcg-dha 25 1 tab PO DAILY pregnan 04/19/22 History mg-herb no.293 25 mg chewable tablet (Alive Daily Support ) loratadine 10 mg tablet (Allergy 10 mg PO DAILY 04/20/23 09/29/24 H istory Relief (loratadine)) sertraline 25 mg tablet 25 mg PO QDAY 12/24/23 09/29/24 [facility] History Elevated liver enzymes Laceration, obstetrical, second degree Care and examination of lactating mother (spontaneous vaginal delivery) Encounter for elective induction of labor 39 weeks gestation of Shortness of breath Palpitations Chronic neck pain Preventative health care Menstrual irregularity Other vitreous opacities, bilateral Urinary frequency Seasonal allergies Back pain Persistent headaches Surgical History H/O wisdom tooth extraction Family History Grandmother Cancer lung CVA (cerebral vascular accident) Grandfather Cancer pancreatic Father Heart disease Hypertension Hyperlipidemia Grandfather Heart disease CVA (cerebral vascular accident) Social History Smoking Status: Never smoker alcohol intake: never substance use type: does not use caffeine: Yes (Occasionally) Type: coffee what type of physical activity do you participate in: walking frequency: 3-4 times per week HPI ADJUSTMENT Chief Complaint: neck and low back pain Visit Number: 3 Details: Melany is a 29 year old female who is here for adjustment. Pt. advises she is currently 22 weeks . She complains of neck pain and stiffness that is equal bilaterally. She complains of low back tightness that has increased over the last few weeks. She complains of bilateral SI joint pain and states it has been very 'pinchy' and extends to her right knee. Her hips have been very painful and they feel out of alignment. She rates her pain 4/10. She states walking/ weight bearing aggravates her pain as well as long, busy days at work which contribute to her pain. She denies new injury, numbness or tingling. She treats pain at home with heat, stretching and rubber ball massage. Melany reports chiropractic adjustments are helpful in relieving her discomfort but it gradually returns. Location: neck and low back Duration: intermittent Aggravating or associated factors: work posture, caring for child/ Relieving factors: chiro Pain Quality: aching and dull Exam Musc General: Yes normal gait, joint tenderness and decreased range of motion; No normal posture or muscle weakness Cervical Spine: Yes loss of normal cervical lordosis (left curve), Yes cervical muscular tenderness bilateral lower , Yes cervical spasm right upper intrinsics, right lower trapezius and paracervical muscles and Yes misalignment misalignment: C1, C5, C6 and C7 Thoracic/Lumber: Yes thoracic and lumbar spine normal to inspection, Yes paraspinal tenderness bilaterally in the mid lumbar and in the lower lumbar and on the right greater than left (midthoracic), Yes scoliosis (left cervicothoracic), Yes thoraco-lumbar spasm on the right greater than left (rhomboid, QL) and on the left greater than right (upper trap) and Yes misalignment T2, T3, T5, T6, T7, L3, L4, L5 and RIL Sacrum: Yes tenderness and Yes misalignment (right) Yes Office Procedures Procedures - Chiropractic Procedures Manipulation: Cervical C2 and C6, Lumbar L3, Sacrum (right) and Thoracic T6 Manipulation: 3-4 regions Patient Response: positive Assessment and Plan Assessment and Plan (1) Segmental and somatic dysfunction of cervical region: Status: Acute (2) Scoliosis: Status: Chronic Qualifiers: Idiopathic scoliosis type: other Scoliosis type: idiopathic Spinal region: cervicothoracic Qualified Code(s): M41.23 - Other idiopathic scoliosis, cervicothoracic region Comment: L cervicothoracic (3) Segmental and somatic dysfunction of thoracic region: Status: A (more content not included)... Normal [facility] Comprehensive metabolic 2000 panelon 09-18-2024 Albumin [Mass/Vol] 3.6 g/dL Low 3.9-4.9 [facility] Comment on above: Order Comment: Jannet baez Type: BLOOD SPECIMENOrdering Facility: [facility] Address: [address] [place] [address] Performed By: #### 2 4323-8 ####angelMD [facility] LABORATORYCLIA [id number] [place] [address] [place] ALP [Catalytic activity/Vol] 71 U/L Normal 34-123 [facility] Comment on above: Order Comment: Jannet baez Type: BLOOD SPECIMENOrdering Facility: [facility] Address: [address] [place] [address] Performed By: #### 2 4323-8 ####angelMD [facility] LABORATORYCLIA [id number] [place] [address] [place] [place] ALT With P-5'-P [Catalytic activity/Vol] 14 U/L Normal 7-38 [facility] Comment on above: Order Comment: Jannet baez Type: BLOOD SPECIMENOrdering Facility: [facility] Address: [address] [place] [address] Performed By: #### 2 4323-8 ####angelMD [facility] LABORATORYCLIA [id number] [place] [address] [place] Anion gap [Moles/Vol] 12 mmol/L Normal 8-15 [facility] Comment on above: Order Comment: Speci men Type: BLOOD SPECIMENOrdering Facility: [facility] Address: [address] [place] [address] Performed By: #### 2 4323-8 ####[facility]ORATORYCLIA [id number] [place] [id number] [place] AST With P-5'-P [Catalytic activity/Vol] 18 U/L Normal 13-35 [facility] Comment on above: Order Comment: Speci men Type: BLOOD SPECIMENOrdering Facility: [facility] Address: [address] [place] [address] Performed By: #### 2 4323-8 ####[facility]ORATORYCLIA [id number] [place] [address] [place] Bilirubin [Mass/Vol] 0.2 mg/dL Normal 0.2-1.3 [facility] Comment on above: Order Comment: Speci men Type: BLOOD SPECIMENOrdering Facility: [facility] Address: [address] [place] [address] Performed By: #### 2 4323-8 ####[facility]ORATORYCLIA [id number] [address] [place] Calcium [Mass/Vol] 8.5 mg/dL Normal 8.5-10.2 [facility] Comment on above: Order Comment: Speci men Type: BLOOD SPECIMENOrdering Facility: [facility] Address: [address] [place] [address] Performed By: #### 2 4323-8 ####[facility]ORATORYCLIA [id number] [place] [id number] [place] Chloride [Moles/Vol] 103 mmol/L Normal 98-107 [facility] Comment on above: Order Comment: Speci men Type: BLOOD SPECIMENOrdering Facility: [facility] Address: [address] [place] [address] Performed By: #### 2 4323-8 ####[facility]ORATORYCLIA [id number] [place] [id number] [place] CO2 [Moles/Vol] 22 mmol/L Normal 22-30 [facility] Comment on above: Order Comment: Speci men Type: BLOOD SPECIMENOrdering Facility: [facility] Address: [address] [place] [address] Performed By: #### 2 4323-8 ####[facility] LABORATORYCLIA [id number] [place] [id number] [place] Creatinine [Mass/Vol] 0.39 mg/dL Low 0.58-0.96 [facility] Comment on above: Order Comment: Speci men Type: BLOOD SPECIMENOrdering Facility: [facility] Address: [address] [place] [address] Performed By: #### 2 4323-8 ####[facility] POINTIA [id number] [address] Creatinine and Glomerular filtration rate.predicted panel (S/P/Bld) 140 mL/min/1.73m??? Normal >=60 [facility] Comment on above: Order Comment: Speci men Type: BLOOD SPECIMENOrdering Facility: [facility] Address: [address] [place] [address] Result Comment: Ranjana mated Glomerular Filtration Rate (eGFR) is calculated using the 2020 CKD-EPI creatinine equation. This equation utilizes serum creatinine, sex, and age as parameters. The creatinine assay has traceable calibration to isotope dilution-mass spectrometry. Refer to KDIGO guidelines for clinical interpretation. In patients with unstable renal function, e.g. those with acute kidney injury, the eGFR may not accurately reflect actual GFR. Performed By: #### 2 4323-8 ####[facility] LABORATORYCLIA [id number] [place] [id number] [place] Glucose [Mass/Vol] 100 mg/dL High 74-99 [facility] Comment on above: Order Comment: Speci men Type: BLOOD SPECIMENOrdering Facility: [facility] Address: [address] [place] [address] Result Comment: The [place] Diabetes Association (ADA) provides guidance for cutoff values for fasting glucose and random glucose. The ADA defines fasting as no caloric intake for at least 8 hours. Fasting plasma glucose results between 100 to 125 mg/dL indicate increased risk for diabetes (prediabetes). Fasting plasma glucose results greater than or equal to 126 mg/dL meet the criteria for diagnosis of diabetes. In the absence of unequivocal hyperglycemia, results should be confirmed by repeat testing. In a patient with classic symptoms of hyperglycemia or hyperglycemic crisis, random plasma glucose results greater than or equal to 200 mg/dL meet the criteria for diagnosis of diabetes. Reference: Standards of Medical Care in Diabetes 2016, [place] Diabetes Association. Diabetes Care. 2016.39(Suppl 1). Performed By: #### 2 4323-8 ####[facility]ST[facility] LABORATORYCLIA [id number] [place] [address] [place] Potassium [Moles/Vol] 3.7 mmol/L Normal 3.7-5.1 [facility] Comment on above: Order Comment: Speci men Type: BLOOD SPECIMENOrdering Facility: [facility] Address: [address] [place] [address] Performed By: #### 2 4323-8 ####[facility] CorporationSTEV[facility] LABORATORYCLIA [id number] [place] [address] [place] Protein [Mass/Vol] 6.6 g/dL Normal 6.3-8.0 [facility] Comment on above: Order Comment: Speci men Type: BLOOD SPECIMENOrdering Facility: [facility] Address: [address] [place] [address] Performed By: #### 2 4323-8 ####[facility] CorporationST[facility] LABORATORYCLIA [id number] [place] [address] [place] Sodium [Moles/Vol] 137 mmol/L Normal 136-144 [facility] Comment on above: Order Comment: Speci men Type: BLOOD SPECIMENOrdering Facility: [facility] Address: [address] [place] [address] Performed By: #### 2 4323-8 ####[facility] CorporationST[facility] LABORATORYCLIA [id number] [place] [address] [place] Urea nitrogen [Mass/Vol] 7 mg/dL Normal 7-21 [facility] Comment on above: Order Comment: Speci men Type: BLOOD SPECIMENOrdering Facility: [facility] Address: [address] [place] [id number] Performed By: #### 2 4323-8 ####[facility] LABORATORYCLIA [id number] [place] [address] [place] [facility] Examination level ultrasound on 09-17-2024 Indication Standard anatomic survey Impression remote read The patient is referred for a standard anatomic survey. - Single, live, intrauterine . - biometry is consistent with the established gestational age. - No malformations were visualized on a complete standard anatomic survey. - The amniotic fluid volume is normal amount. - The placenta is anterior, fundal. - The Transabdominal cervical length measures 40.1 mm with no evidence of funneling or other dynamic changes. - Not all structural malformations can be detected by ultrasound examination. Recommendations Additional follow-up as clinically indicated. Maternal Assessment Height 165 cm Height (ft) 5 ft Height (in) 5 in Physical Exam Initial weight (lb) 135 lb Initial BMI 22.47 kg/m Method Transabdominal ultrasound examination. View: Adequate visualization Srivastava . Number of fetuses: 1 Dating LMP on: 04/19/2024 GA by LMP 21 w + 4 d BELTRAN by LMP: 01/24/2025 Previous Ultrasound on: 06/16/2024 Type of prior assessment: GA U/S measurement at prior assessment date 11.0 mm GA at prior assessment date 7 w + 1 d GA by previous U/S 20 w + 3 d BELTRAN by previous Ultrasound: 02/01/2025 Ultrasound examination on: 09/17/2024 GA by U/S based upon: AC, BPD, Femur, HC GA by U/S 20 w + 4 d BELTRAN by U/S: 01/31/2025 Assigned: based on ultrasound (GA), selected on 09/17/2024 Assigned GA 20 w + 3 d Assigned BELTRAN: 02/01/2025 General Evaluation Cardiac activity present. FHR 146 bpm. movements: present, present. Presentation: cephalic Placenta: Placental site: anterior, fundal Umbilical cord: Cord vessels: 3 vessel cord. Insertion site: normal insertion Amniotic fluid: Amount of AF: normal amount Growth Overview Exam date GA BPD (mm) HC (mm) AC (mm) FL (mm) HL (mm) EFW (g) 09/17/2024 20w 3d 48.6 61% 180.8 52% 153.5 48% 32.3 50% 30.8 42% 347 39% Biometry Standard BPD 48.6 mm 20w 5d 61% Hadlock OFD 64.8 mm 20w 4d 80% Nicolaides HC 180.8 mm 20w 3d 52% Prasad Cerebellum tr 21.6 mm 20w 3d 69% Hill Nuchal fold 4.2 mm AC 153.5 mm 20w 4d 48% Hadlock Femur 32.3 mm 20w 2d 50% Prasad Humerus 30.8 mm 20w 1d 42% Prasad EFW 347 g 20w 2d 39% Hadlock EFW (lb) 0 lb EFW (oz) 12 oz EFW by: Hadlock (HC-AC-FL) Extended Linux Systems Engineer 6.6 mm CM 3.2 mm 4% Nicolaides Nasal bone 7.9 mm Extremities / Bony Struc FL / HC 0.18 19% Hadlock Other Structures FHR 146 bpm Anatomy Cranium: normal Lateral ventricles: normal Choroid plexus: normal Midline falx: normal Cavum septi pellucidi: normal Cerebellum: normal Cisterna magna: normal Head / Neck Vermis: Normal but not required for a standard anatomy exam Neck: Normal but not required for a standard anatomy exam Nuchal fold: Normal but not required for a standard anatomy exam Lips: normal Profile: Normal but not required for a standard anatomy exam Nose: Normal but not required for a standard anatomy exam Face Maxilla: Normal but not required for a standard anatomy exam Mandible: Normal but not required for a standard anatomy exam Orbits: Normal but not required for a standard anatomy exam Lens: Normal but not required for a standard anatomy exam 4-chamber view: normal RVOT view: normal LVOT view: normal 3-vessel view: normal 9-tclmce-qhdoqqq view: normal Heart / Thorax Situs: situs solitus (normal) Aortic arch view: Normal but not required for a standard anatomy exam SVC: Normal but not required for a standard anatomy exam IVC: Normal but not required for a standard anatomy exam Cardiac axis: normal Rt lung: Normal but not required for a standard anatomy exam Lt lung: Normal but not required for a standard anatomy exam Diaphragm: Normal but not required for a standard anatomy exam Cord insertion: normal Stomach: normal Kidneys: normal Bladder: normal Genitals: normal Abdomen Abdom. wall: normal Cervical spine: normal Thoracic spine: normal Lumbar spine: normal Sacral spine: normal Arms: normal Legs: normal Rt upper arm: normal Rt forearm: normal Rt hand: normal Rt fingers: normal Lt upper arm: normal Lt forearm: normal Lt hand: normal Lt fingers: normal Rt upper leg: normal Rt lower leg: normal Rt foot: normal Lt upper leg: normal Lt lower leg: normal Lt foot: normal Gender: Unspecified Wants to know sex: no Maternal Structures Uterus / Cervix Uterus: Visualized Cervix: Visualized Approach: Transabdominal Cervical length 40.1 mm Other: Patient declined transvaginal ultrasound for cervical length. Performed By: Emily Mancera RDMS Read By: Jie Ann M.D. MATERNAL MEDICINE [facility] Radiology Study observation (narrative) [facility] Chiropractic Reporton 2024 Chiropractic Report [facility] [address] [place] [address] OFFICE VISIT Date of Service: 08/28/24 MR#: [id number] Acct: [id number] Name: MELANY MACE Rep #: [id number] : 1995 Provider: EDUARD Mckinney Age/Sex: 29/F Location: [facility] Status: Signed Intake Vital Signs 04/20/23 10:30 Height 5 ft 4 in Intake Visit Reasons: ADJUSTMENT Chief Complaint: neck and pain Is patient in pain?: Yes (right SI ) Pain scale (1-10): 4 Allergies mold Allergy (Verified 08/28/24 17:01) unknown ragweed pollen Allergy (Verified 08/28/24 17:01) unknown Medications ???Medication ???Instructions ???Recorded ???Confirmed ???Type mv-mn no.97-folic 180 mcg-dha 25 1 tab PO DAILY pregnan 04/19/22 History mg-herb no.293 25 mg chewable tablet (Alive Daily Support ) loratadine 10 mg tablet (Allergy 10 mg PO DAILY 04/20/23 08/28/24 H istory Relief (loratadine)) sertraline 25 mg tablet 25 mg PO QDAY 12/24/23 08/28/24 Hi story [facility] Medical History Elevated liver enzymes Laceration, obstetrical, second degree Care and examination of lactating mother (spontaneous vaginal delivery) Encounter for elective induction of labor 39 weeks gestation of Shortness of breath Palpitations Chronic neck pain Preventative health care Menstrual irregularity Other vitreous opacities, bilateral Urinary frequency Seasonal allergies Back pain Persistent headaches Surgical History H/O wisdom tooth extraction Family History Grandmother Cancer lung CVA (cerebral vascular accident) Grandfather Cancer pancreatic Father Heart disease Hypertension Hyperlipidemia Grandfather Heart disease CVA (cerebral vascular accident) Social History Smoking Status: Never smoker alcohol intake: never substance use type: does not use caffeine: Yes (Occasionally) Type: coffee what type of physical activity do you participate in: walking frequency: 3-4 times per week HPI ADJUSTMENT Chief Complaint: neck and low back pain Visit Number: 2 Details: Melany is a 29 year old female who is here for adjustment. Pt. advises she is currently 17 weeks . Pt. c/o right SI joint pain. She states it has been very 'pinchy' and extends to her right knee. She had a massage yesterday which was helpful. She rates her SI pain 4/10 today. She states walking/ weight bearing aggravates her pain as well as long, busy days at work which contribute to her pain. She denies new injury, numbness or tingling. She treats pain at home with heat, stretching and rubber ball massage. Melany reports chiropractic adjustments are helpful in relieving her discomfort but it gradually returns. Location: neck and low back Duration: intermittent Aggravating or associated factors: work posture, caring for child/ Relieving factors: chiro Pain Quality: aching and dull Exam Musc General: Yes normal gait, joint tenderness and decreased range of motion; No normal posture or muscle weakness Cervical Spine: Yes loss of normal cervical lordosis (left curve), Yes cervical muscular tenderness bilateral diffuse , Yes cervical spasm right upper intrinsics, right lower trapezius and paracervical muscles and Yes misalignment misalignment: C1, C5, C6 and C7 Thoracic/Lumber: Yes thoracic and lumbar spine normal to inspection, Yes paraspinal tenderness bilaterally in the mid lumbar and in the lower lumbar and on the right greater than left (midthoracic), Yes scoliosis (left cervicothoracic), Yes thoraco-lumbar spasm on the right greater than left (rhomboid, QL) and on the left greater than right (upper trap) and Yes misalignment T2, T3, T5, T6, T7, L3, L4, L5 and RIL Sacrum: Yes tenderness and Yes misalignment (right) Yes Office Procedures Procedures - Chiropractic Procedures Manipulation: Cervical C2 and C6, Lumbar L3, Thoracic T6 and Pelvis RIL Manipulation: 3-4 regions Patient Response: positive Assessment and Plan Assessment and Plan (1) Segmental and somatic dysfunction of cervical region: Status: Acute (2) Scoliosis: Status: Chronic Qualifiers: Idiopathic scoliosis type: other Scoliosis type: idiopathic Spinal region: cervicothoracic Qualified Code(s): M41.23 - Other idiopathic scoliosis, cervicothoracic region Comment: L cervicothoracic (3) Segmental and somatic dysfunction of thoracic region: Status: Acute (4) Segmental and somatic dysfunction of lumbar region: Status: Acute (5) Segmental and somatic dysfunction of pelvic region: Status: Acute Orders: Orders (more content not included)... Normal [facility] 25(OH)D3 [facility] 2024 25-hydroxyvitamin D3 [Mass/Vol] 32.0 ng/mL Normal 31.0-80.0 [facility] Comment on above: Order Comment: Speci men Type: BLOOD SPECIMENOrdering Facility: [facility] Address: [address] [place] [address] Performed By: #### 1 989-3 ####[facility] LABCLIA [id number] [place] [address] [place] BACTERIAL VAGINOSIS NAATon 0 08-19-2024 Lactobacillus crispatus+gasseri+rosalie enii + Gardnerella vaginalis + Atopobium vaginae rRNA BARRY+probe Ql (Vag fld) Not detected Normal Not detected [facility] Comment on above: Order Comment: Speci men Type: SWABOrdering Facility: [facility] Address: [address] [place] [address] Performed By: #### C VTV, BVAMP ####[facility] LABCLIA [id number] [place] [address] [place] Bacteria Ur Culton Bacteria identified Cx Nom (U) ORGANISM ID: 1 <10,000 CFU/ml Normal urogenital muriel Normal [facility] Comment on above: Performed By: #### 6 30-4 ####[facility] LABCLIA [id number] [place] [address] [place] BASSEM/TRICHOMONAS NAATon 0 08-19-2024 C. glabrata RNA BARRY+probe Ql (Vag fld) Not detected Normal Not detected [facility] Comment on above: Order Comment: Speci men Type: SWABOrdering Facility: [facility] Address: [address] [place] [address] Performed By: #### C VTV, BVAMP ####[facility] LABCLIA [id number] [place] [address] [place] Bassem sp DNA BARRY+probe Ql (Vag fld) Not detected Normal Not detected [facility] Comment on above: Order Comment: Speci men Type: SWABOrdering Facility: [facility] Address: [address] [place] [address] Result Comment: The Bassem species group target includes C. albicans, C. tropicalis, C. parapsilosis, and C. dubliniensis. Performed By: #### C VTV, BVAMP ####[facility] LABCLIA [id number] [place] [address] [place] T. vaginalis DNA BARRY+probe Ql (Unsp spec) Not detected Normal Not detected [facility] Comment on above: Order Comment: Speci men Type: SWABOrdering Facility: [facility] Address: [address] [place] [address] Performed By: #### C VTV, BVAMP ####[facility] LABCLIA [id number] [place] [address] [place] CUP27hr 08-19-2024 ECG01 Ventricular Rate : 9 0 BPM Atrial Rate : 90 BPM P-R Interval : 160 ms QRS Duration : 76 ms Q-T Interval : 362 ms QTC Calculation(Bazett) : 442 ms Calculated P [place] : 63 degrees Calculated R [place] : 63 degrees Calculated T [place] : 19 degrees NORMAL SINUS RHYTHM NORMAL ECG Confirmed by MD LIEBERMAN QARAB ([id number]) on 08/20/2024 3:56:44 PM NAME : MELANY MACE PID : [id number] : 1995 Gender : Female Race : ORD : Procedure Date : Aug 19 2024 12:59:58 Edit Date : Aug 20 2024 15:56:48 Diagnosis: NORMAL SINUS RHYTHM NORMAL ECG Confirmed by MD LIEBERMAN QARAB ([id number]) on 08/20/2024 3:56:44 PM Test Reason : Location : 6 : [facility] Overread By : MD LIEBERMAN QARAB Edited By : MD LIEBERMAN QARAB Referred By : , Acquired by : , Normal [facility] T4 Free SerPl-mCncon 025 Free T4 [Mass/Vol] 0.8 ng/dL Low 0.9-1.7 [facility] Comment on above: Order Comment: Speci men Type: BLOOD SPECIMENOrdering Facility: [facility] Address: [address] [place] [address] Performed By: #### 3 024-7, 3016-3, 2132-9 ####[facility] LABCLIA [id number] [place] [address] [place] TSH SerPl-aCncon 08-19-2024 TSH Qn 2.320 m[IU]/L Normal 0.270-4.200 [facility] Comment on above: Order Comment: Speci men Type: BLOOD SPECIMENOrdering Facility: [facility] Address: [address] [place], [place] [address] [address] Result Comment: If t he patient is , TSH reference range varies by gestational period: First Trimester (weeks 9-12): 0.180-2.990 mIU/L Second Trimester: 0.110-3.980 mIU/L Third Trimester: 0.480-4.710 mIU/L Vishal Gillespie et al. A Practical Approach for the Verifications and Determination of Site- and Trimester-Specific Reference Intervals for Thyroid Function tests in . Thyroid, 2019:29:3:412-420. Everardo Berg et al. 2017 Guidelines of the [place] Thyroid Association for the Diagnosis and Management of Thyroid Disease during and the . Thyroid, 2017:27:3:315-389. Performed By: #### 3 024-7, 3016-3, 2132-9 ####[facility] LABCLIA [id number] [place] [address] [place] UA DIP, URINE (POC)on 2024 BILIRUBIN UA (POCT) Negative Negative [facility] CLARITY UA (POCT) Clear [facility] COLOR UA (POCT) Yellow [facility] GLUCOSE UA (POCT) Negative Negative mg/dL [facility] Hemoglobin Ql (U) Negative Negative [facility] KETONE UA (POCT) Negative Negative mg/dL [facility] LEUKOCYTES UA (POCT) Negative Negative [facility] NITRITE UA (POCT) Negative Negative [facility] PH UA (POCT) 6.5 4.5 - 8.0 [facility] Protein Ql (U) Negative Negative mg/dL [facility] SPECIFIC GRAVITY UA (POCT) >=1.030 1.005 - 1.030 [facility] UROBILINOGEN UA (POCT) 0.2 Normal E.U./d L [facility] Location:[facility], [address], [place], [address] [facility] POINT [facility] CARE [facility] Vit B12 SerPl-mCncon 025 Cobalamin (Vitamin B12) [Mass/Vol] 449 pg/mL Normal 232-1245 [facility] Comment on above: Order Comment: Speci men Type: BLOOD SPECIMENOrdering Facility: [facility] Address: [address] [place] [address] Performed By: #### 3 024-7, 3016-3, 2132-9 ####[facility] LABCLIA [id number] SHARRIPhyllis [address] [place] [address] [place] Chiropractic Reporton 2024 Chiropractic Report [facility] [address] [place] [address] OFFICE VISIT Date of Service: 07/31/24 MR#: [id number] Acct: [id number] Name: MELANY MACE Rep #: [id number] : 1995 Provider: EDUARD Mckinney Age/Sex: 29/F Location: [facility] Status: Signed Intake Vital Signs 04/20/23 10:30 Height 5 ft 4 in Intake Visit Reasons: ADJUSTMENT Chief Complaint: neck and pain Is patient in pain?: Yes (neck and SI) Pain scale (1-10): 4 Allergies mold Allergy (Verified 07/31/24 17:03) unknown ragweed pollen Allergy (Verified 07/31/24 17:03) unknown Medications ???Medication ???Instructions ???Recorded ???Confirmed ???Type mv-mn no.97-folic 180 mcg-dha 25 1 tab PO DAILY pregnan 04/19/22 07/31/24 History mg-herb no.293 25 mg chewable tablet (Alive Daily Support ) loratadine 10 mg tablet (Allergy 10 mg PO DAILY 04/20/23 07/31/24 History Relief (loratadine)) sertraline 25 mg tablet 25 mg PO QDAY 12/24/23 07/31/24 History PFSH Medical History Elevated liver enzymes Laceration, obstetrical, second degree Care and examination of lactating mother (spontaneous vaginal delivery) Encounter for elective induction of labor 39 weeks gestation of Shortness of breath Palpitations Chronic neck pain Preventative health care Menstrual irregularity Other vitreous opacities, bilateral Urinary frequency Seasonal allergies Back pain Persistent headaches Surgical History H/O wisdom tooth extraction Family History Grandmother Cancer lung CVA (cerebral vascular accident) Grandfather Cancer pancreatic Father Heart disease Hypertension Hyperlipidemia Grandfather Heart disease CVA (cerebral vascular accident) Social History Smoking Status: Never smoker alcohol intake: never substance use type: does not use caffeine: Yes (Occasionally) Type: coffee what type of physical activity do you participate in: walking frequency: 3-4 times per week HPI ADJUSTMENT Chief Complaint: neck and low back pain Visit Number: 1 Details: Melany is a 29 year old female who is here for adjustment. Pt. advises she is 13 weeks . Pt. advises the right side of her neck is tight today. She rates her neck pain 4/10. She also c/o right SI pain which has been very 'pinchy'. She rates her SI pain 5/10. She had a massage yesterday which was helpful. 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 She denies new injury, numbness, tingling or radiculopathy. She treats pain at home with heat, stretching and rubber ball massage. Melany reports chiropractic adjustments are helpful in relieving her discomfort but it gradually returns. Location: neck and low back Duration: intermittent Aggravating or associated factors: work posture, caring for child/ Relieving factors: chiro Pain Quality: aching and dull Exam Musc General: Yes normal gait, joint tenderness and decreased range of motion; No normal posture or muscle weakness Cervical Spine: Yes loss of normal cervical lordosis (left curve), Yes cervical muscular tenderness right greater than left diffuse , Yes cervical spasm right upper intrinsics, right lower trapezius and paracervical muscles and Yes misalignment misalignment: C1, C5, C6 and C7 Thoracic/Lumber: Yes thoracic and lumbar spine normal to inspection, Yes paraspinal tenderness bilaterally in the mid lumbar and in the lower lumbar and on the right greater than left (midthoracic), Yes scoliosis (left cervicothoracic), Yes thoraco-lumbar spasm on the right greater than left (rhomboid, QL) and on the left greater than right (upper trap) and Yes misalignment T2, T3, T5, T6, T7, L3, L4, L5 and RIL Sacrum: Yes tenderness and Yes misalignment (right) Yes Office Procedures Procedures - Chiropractic Procedures Manipulation: Cervical C2 and C6, Lumbar L3, Thoracic T6 and Pelvis RIL Manipulation: 3-4 regions Patient Response: positive Assessment and Plan Assessment and Plan (1) Segmental and somatic dysfunction of cervical region: Status: Acute (2) Scoliosis: Status: Chronic Qualifiers: Idiopathic scoliosis type: other Scoliosis type: idiopathic Spinal region: cervicothoracic Qualified Code(s): M41.23 - Other idiopathic scoliosis, cervicothoracic region Comment: L cervicothoracic (3) Segmental and somatic dysfunction of thoracic region: Status: Acute (4) Segmental and somatic dysfunction of lumbar region: Status: Acute (5) Segmental and somatic dysfunction of sacral region: Status: Acute Orders: (more content not included)... Normal [facility] nuchal translucency me asured by USon 07-21-2024 Indication First trimester anatomic survey; declines NIPT Impression REMOTE READ The patient is referred for a first trimester anatomy scan including nuchal translucency measurement as clinically indicated. - Single, live, intrauterine . - [place] rump length measurement is consistent with the established gestational age. - A quantitative screen of the nuchal translucency and other anatomic structures was unremarkable on a complete first trimester anatomic assessment. - Not all structural malformations can be detected by ultrasound examination. Recommendations - An anatomic survey at 18-20 weeks is recommended given no identified risk factors. Maternal Assessment Height 165 cm Height (ft) 5 ft Height (in) 5 in Physical Exam Initial weight (lb) 135 lb Initial BMI 22.47 kg/m Maternal assessment other: 2 Para 1 Method Transabdominal ultrasound examination Srivastava . Number of fetuses: 1 Dating LMP on: 04/19/2024 GA by LMP 13 w + 2 d BELTRAN by LMP: 01/24/2025 Ultrasound examination on: 07/21/2024 GA by U/S based upon: CRL GA by U/S 12 w + 4 d BELTRAN by U/S: 01/29/2025 Assigned: based on ultrasound (CRL), selected on 06/16/2024 Assigned GA 11 w + 4 d Assigned BELTRAN: 02/05/2025 General Evaluation Cardiac activity present Placenta: anterior Cord vessels: 3 vessel cord Amniotic fluid: normal amount Biometry Standard FHR 158 bpm CRL 61.2 mm 12w 4d 97% Hadlock NT 1.70 mm First Trimester Anatomy Calvarium: normal Falx cerebri: normal Choroid plexus: normal Profile: normal Nasal bone: normal Retronasal triangle: normal Maxilla: normal Mandible: normal Nuchal translucency: Unremarkable Situs: normal Cardiac position: normal Cardiac axis: normal 4-chamber view: normal 4-chamber view with color: normal 9-lhkhtz-kfuygqu view: normal Abdominal cord insertion: normal Stomach: normal Kidneys: normal Bladder: normal Color doppler of perivesical umbilical arteries: normal Vertebral alignment: normal Arms: normal Hands: normal Legs: normal Feet: normal Maternal Structures Uterus / Cervix Uterus: Visualized Uterus length 111 mm Uterus width 114 mm Uterus height 93 mm Uterus Vol 617.6 cm Ovaries / Tubes / Adnexa Rt ovary: Visualized Rt ovary D1 30 mm Rt ovary D2 24 mm Rt ovary D3 15 mm Rt ovary Vol 5.4 cm Lt ovary: Visualized Lt ovary D1 35 mm Lt ovary D2 20 mm Lt ovary D3 23 mm Lt ovary Vol 8.3 cm Performed By: Nai Adame RDMS, RVT Read By: Reba Augustine M.D. MATERNAL MEDICINE [facility] Radiology Study observation (narrative) [facility] CBC W Auto Differential pane l (Bld)on 07-03-2024 Basophils (Bld) [#/Vol] 0.03 10*3/uL Normal <0.11 [facility] Comment on above: Order Comment: Speci men Type: BLOOD SPECIMENOrdering Facility: [facility] Address: [address] [place] [address] Performed By: #### 5 7021-8 ####[facility] [id number] [place] [address] [place] Basophils/100 WBC (Bld) 0.3 % Normal [facility] Comment on above: Order Comment: Speci men Type: BLOOD SPECIMENOrdering Facility: [facility] Address: [address] [place] [address] Performed By: #### 5 7021-8 ####[facility] [id number] [place] [address] [place] Differential cell count method Nom (Bld) Auto Normal [facility] Comment on above: Order Comment: Speci men Type: BLOOD SPECIMENOrdering Facility: [facility] Address: [address] [place] [address] Performed By: #### 5 7021-8 ####[facility] [id number] [place] [address] [place] Eosinophils (Bld) [#/Vol] 0.10 10*3/uL Normal <0.46 [facility] Comment on above: Order Comment: Speci men Type: BLOOD SPECIMENOrdering Facility: [facility] Address: [address] [place] [address] Performed By: #### 5 7021-8 ####[facility] [id number] [place] [address] [place] Eosinophils/100 WBC (Bld) 0.9 % Normal [facility] Comment on above: Order Comment: Speci men Type: BLOOD SPECIMENOrdering Facility: [facility] Address: [address] [place] [address] Performed By: #### 5 7021-8 ####[facility] [id number] [place] [address] [place] Erythrocyte distribution width (RBC) [Ratio] 13.2 % Normal 11.5-15.0 [facility] Comment on above: Order Comment: Speci men Type: BLOOD SPECIMENOrdering Facility: [facility] Address: [address] [place] [address] Performed By: #### 5 7021-8 ####[facility] [id number] [place] [address] [place] Hematocrit (Bld) [Volume fraction] 38.0 % Normal 36.0-46.0 [facility] Comment on above: Order Comment: Speci men Type: BLOOD SPECIMENOrdering Facility: [facility] Address: [address] [place] [address] Performed By: #### 5 7021-8 ####[facility] [id number] [place] [address] [place] Hemoglobin (Bld) [Mass/Vol] 12.9 g/dL Normal 11.5-15.5 [facility] Comment on above: Order Comment: Speci men Type: BLOOD SPECIMENOrdering Facility: [facility] Address: [address] [place] [address] Performed By: #### 5 7021-8 ####[facility] [id number] [place] [address] [place] Immature granulocytes (Bld) [#/Vol] 0.03 10*3/uL Normal <0.10 [facility] Comment on above: Order Comment: Speci men Type: BLOOD SPECIMENOrdering Facility: [facility] Address: [address] [place] [address] Performed By: #### 5 7021-8 ####[facility] [id number] [place] [address] [place] Immature granulocytes/100 WBC (Bld) 0.3 % Normal [facility] Comment on above: Order Comment: Speci men Type: BLOOD SPECIMENOrdering Facility: [facility] Address: [address] [place] [address] Performed By: #### 5 7021-8 ####[facility] [id number] [place] [address] [place] Lymphocytes (Bld) [#/Vol] 2.69 10*3/uL Normal 1.00-4.00 [facility] Comment on above: Order Comment: Speci men Type: BLOOD SPECIMENOrdering Facility: [facility] Address: [address] [place] [address] Performed By: #### 5 7021-8 ####[facility] MARCIANCRAFIA [id number] [place] [address] [place] Lymphocytes/100 WBC (Bld) 25.4 % Normal [facility] Comment on above: Order Comment: Speci men Type: BLOOD SPECIMENOrdering Facility: [facility] Address: [address] [place] [address] Performed By: #### 5 7021-8 ####[facility] DANIELinaNCRAFIA [id number] [place] [address] [place] MCH (RBC) [Entitic mass] 30.1 pg Normal 26.0-34.0 [facility] Comment on above: Order Comment: Speci men Type: BLOOD SPECIMENOrdering Facility: [facility] Address: [address] [place] [address] Performed By: #### 5 7021-8 ####[facility] [id number] [place] [address] [place] MCHC (RBC) [Mass/Vol] 33.9 g/dL Normal 30.5-36.0 [facility] Comment on above: Order Comment: Speci men Type: BLOOD SPECIMENOrdering Facility: [facility] Address: [address] [place] [address] Performed By: #### 5 7021-8 ####[facility] DANIEWNCLIA [id number] [place] [address] [place] MCV (RBC) [Entitic vol] 88.8 fL Normal 80.0-100.0 [facility] Comment on above: Order Comment: Speci men Type: BLOOD SPECIMENOrdering Facility: [facility] Address: [address] [place] [address] Performed By: #### 5 7021-8 ####[facility] [id number] [place] [address] [place] Monocytes (Bld) [#/Vol] 0.43 10*3/uL Normal <0.87 [facility] Comment on above: Order Comment: Speci men Type: BLOOD SPECIMENOrdering Facility: [facility] Address: [address] [place] [address] Performed By: #### 5 7021-8 ####[facility] [id number] [place] [address] [place] Monocytes/100 WBC (Bld) 4.1 % Normal [facility] Comment on above: Order Comment: Speci men Type: BLOOD SPECIMENOrdering Facility: [facility] Address: [address] [place] [address] Performed By: #### 5 7021-8 ####[facility] [id number] [place] [address] [place] Neutrophils (Bld) [#/Vol] 7.32 10*3/uL Normal 1.45-7.50 [facility] Comment on above: Order Comment: Speci men Type: BLOOD SPECIMENOrdering Facility: [facility] Address: [address] [place] [address] Performed By: #### 5 7021-8 ####[facility] H[facility]ITALLIA [id number] [place] [address] [place] Neutrophils/100 WBC (Bld) 69.0 % Normal [facility] Comment on above: Order Comment: Speci men Type: BLOOD SPECIMENOrdering Facility: [facility] Address: [address] [place] [address] Performed By: #### 5 7021-8 ####[facility] [id number] [place] [address] [place] Nucleated RBC (Bld) [#/Vol] 10*3/uL Normal <0.01 [facility] Comment on above: Order Comment: Speci men Type: BLOOD SPECIMENOrdering Facility: [facility] Address: [address] [place] [address] Performed By: #### 5 7021-8 ####[facility] MARCIANCMICHAEL [id number] [place] [address] [place] Nucleated RBC/100 WBC (Bld) [Ratio] 0.0 /100 WBC Normal [facility] Comment on above: Order Comment: Speci men Type: BLOOD SPECIMENOrdering Facility: [facility] Address: [address] [place] [address] Performed By: #### 5 7021-8 ####[facility]ERNCMICHAEL [id number] [place] [address] [place] Platelet mean volume (Bld) [Entitic vol] 8.8 fL Low 9.0-12.7 [facility] Comment on above: Order Comment: Speci men Type: BLOOD SPECIMENOrdering Facility: [facility] Address: [address] [place] [address] Performed By: #### 5 7021-8 ####[facility] [id number] [place] [address] [place] Platelets (Bld) [#/Vol] 319 10*3/uL Normal 150-400 [facility] Comment on above: Order Comment: Speci men Type: BLOOD SPECIMENOrdering Facility: [facility] Address: [address] [place] [address] Performed By: #### 5 7021-8 ####[facility] [id number] [place] [address] [place] RBC (Bld) [#/Vol] 4.28 10*6/uL Normal 3.90-5.20 [facility] Comment on above: Order Comment: Speci men Type: BLOOD SPECIMENOrdering Facility: [facility] Address: [address] [place] [address] Performed By: #### 5 7021-8 ####[facility]ERNCA [id number] [place] [address] [place] WBC (Bld) [#/Vol] 10.60 10*3/uL Normal 3.70-11.00 [facility] Comment on above: Order Comment: Speci men Type: BLOOD SPECIMENOrdering Facility: [facility] Address: [address] [place] [address] Performed By: #### 5 7021-8 ####[facility] [id number] [place] [address] [place] HBV surface Ag Ser Qlon 06-22 HBV surface Ag Ql (S) Negative Normal Negative [facility] Comment on above: Order Comment: Speci men Type: BLOOD SPECIMENOrdering Facility: [facility] Address: [address] [place] [address] Performed By: #### 3 1201-7, 21053-8, 5195-3 ####[facility] LABIA [id number] [place] [address] [place] HCV Ab Ser Qlon 07-03-2024 HCV Ab Ql (S) Negative Normal Negative [facility] Comment on above: Order Comment: Speci men Type: BLOOD SPECIMENOrdering Facility: [facility] Address: [address] [place] [address] Result Comment: The result suggests no evidence of active infection with Hepatitis C virus. Should recent infection be suspected, repeat testing may be considered 4-6 weeks after this draw. Performed By: #### 1 6128-1 ####[facility] [id number] [place] [address] [place] HIV 1+2 Ab IA Qlon HIV 1 and 2 Ab IA.rapid Nom (S/P/Bld) Normal [facility] Comment on above: Order Comment: Speci men Type: BLOOD SPECIMENOrdering Facility: [facility] Address: [address] [place] [address] Result Comment: Test not indicated. Performed By: #### 3 1201-7, 86017-1, 3 ####[facility] LABCLIA [id number] [place] [address] [place] HIV 1+2 Ab+HIV1 p24 Ag IA Ql Non-Reactive Normal Nonreactive [facility] Comment on above: Order Comment: Speci men Type: BLOOD SPECIMENOrdering Facility: [facility] Address: [address] [place] [address] Performed By: #### 3 1201-7, 81139-0, 5194-09 ####[facility] LABCLIA [id number] [place] [address] [place] HIV immunoassay testing algorithm interpretation (S/P/Bld) [Interp] Normal [facility] Comment on above: Order Comment: Speci men Type: BLOOD SPECIMENOrdering Facility: [facility] Address: [address] [place] [address] Result Comment: No e vidence of HIV-1 or HIV-2 infection. Should recent infection be suspected, repeat testing may be considered 2-3 weeks after this draw. [place] Rev. Code 3701.243(E): This information has been disclosed to you from confidential records protected from disclosure by state law. ???You shall make no further disclosure of this information without the specific, written, and informed release of the individual to whom it pertains or as otherwise permitted by state law. A general authorization for the release of medical or other information is not sufficient for the purpose of the release of HIV test results or diagnoses. Performed By: #### 3 1201-7, 33569-0, 5 ####[facility] LABCLIA [id number] [place] [id number] [place] HbA1c (Bld)on 07-03-2024 Average glucose Estimated from glycated hemoglobin (Bld) [Mass/Vol] 85 mg/dL Normal [facility] Comment on above: Order Comment: Speci nestor Type: BLOOD SPECIMENOrdering Facility: [facility] Address: [address] [place] [address] Result Comment: eAG: (Estimated average glucose) is a calculated value from HgbA1c and is front office representative of the average blood glucose level in the last 2-3 month period. Performed By: #### 5 5454-3 ####[facility] LABCLIA [id number] [address] [place] HbA1c (Bld) [Mass fraction] 4.6 % Normal 4.3-5.6 [facility] Comment on above: Order Comment: Meenariley baez Type: BLOOD SPECIMENOrdering Facility: [facility] Address: [address] [place] [address] Result Comment: [place] Diabetes Association guidelines indicate that patients with HgbA1c in the range 5.7-6.4% are at increased risk for development of diabetes, and intervention by lifestyle modification may be beneficial. HgbA1c greater or equal to 6.5% is considered diagnostic of diabetes. Performed By: #### 5 5454-3 ####[facility] [id number] [place] [address] [place] RUBELLA IGG ANTIBODYon 07-03 RUBELLA IGG AB, QUAL Positive Normal Positive [facility] Comment on above: Order Comment: Jannet baez Type: BLOOD SPECIMENOrdering Facility: [facility] Address: [address] [place] [address] Result Comment: The result suggests recent or past exposure to Rubella virus or history of Rubella vaccination. Positive result may also be seen due to presence of passively-transferred antibodies. Please correlate with patient's history. Performed By: #### R UBIGG ####[facility] LABCLIA [id number] [address] [place] Reagin and Treponema pallidu m IgG and IgM [Interp]on 07-03-2024 T. pallidum IgG+IgM IA Ql (S) Non-Reactive Normal Nonreactive [facility] Comment on above: Order Comment: Speci men Type: BLOOD SPECIMENOrdering Facility: [facility] Address: [address] [place] [address] Performed By: #### 3 1201-7, 19929-8, 5195-3 ####[facility] LABCLIA [id number] [place] [address] [place] Reagin+T pallidum IgG+IgM Se rPl-Impon 07-03-2024 Reagin and Treponema pallidum IgG and IgM [Interp] Cannot exclude recent Treponemal infection if specimen collected within 7-10 days after appearance of suspect lesions or 2-3 weeks after an exposure. Clinical correlation is required. Normal [facility] Comment on above: Order Comment: Speci men Type: BLOOD SPECIMENOrdering Facility: [facility] Address: [address] [place] [address] Performed By: #### 3 1201-7, 07333-1, 5195-3 ####[facility] LABCLIA [id number] [place] [address] [place] TYPE + SCREEN PRENATALon ABO A Normal [facility] Comment on above: Order Comment: Speci men Type: BLOOD SPECIMENOrdering Facility: [facility] Address: [address] [place] [address] Performed By: #### T SPN ####[facility] BANKCLIA [id number] [place] [address] [place] Rh Nom (Bld) Positive Normal [facility] Comment on above: Order Comment: Speci men Type: BLOOD SPECIMENOrdering Facility: [facility] Address: [address] [place] [address] Performed By: #### T SPN ####[facility]LO[facility] BANKCLIA [id number] [place] [address] [place] TYPE AND SCREEN EXPIRATION 07/06/2024 23:59 Normal [facility] Comment on above: Order Comment: Speci men Type: BLOOD SPECIMENOrdering Facility: [facility] Address: [address] [place] [address] Performed By: #### T SPN ####[facility] BLO[facility] BANKCLIA [id number] [place] [address] [place] Chiropractic Reporton 2023 Chiropractic Report [facility] Chiropractic [facility] [place] [address] OFFICE VISIT Date of Service: 06/26/24 MR#: [id number] Acct: [id number] Name: MELANY MACE Rep #: [id number] : 1995 Provider: EDUARD Mckinney Age/Sex: 29/F Location: [facility] Status: Signed Intake Vital Signs 04/20/23 10:30 Height 5 ft 4 in Intake Visit Reasons: ADJUSTMENT Chief Complaint: neck and pain Allergies mold Allergy (Verified 06/26/24 16:51) unknown ragweed pollen Allergy (Verified 06/26/24 16:51) unknown Medications ???Medication ???Instructions ???Recorded ???Confirmed ???Type mv-mn no.97-folic 180 mcg-dha 25 1 tab PO DAILY pregnan 04/19/22 06/26/24 History mg-herb no.293 25 mg chewable tablet (Alive Daily Support ) loratadine 10 mg tablet (Allergy 10 mg PO DAILY 04/20/23 06/26/24 History Relief (loratadine)) sertraline 25 mg tablet 25 mg PO QDAY 12/24/23 06/26/24 History PFSH Medical History Elevated liver enzymes Laceration, obstetrical, second degree Care and examination of lactating mother (spontaneous vaginal delivery) Encounter for elective induction of labor 39 weeks gestation of Shortness of breath Palpitations Chronic neck pain Preventative health care Menstrual irregularity Other vitreous opacities, bilateral Urinary frequency Seasonal allergies Back pain Persistent headaches Surgical History H/O wisdom tooth extraction Family History Grandmother Cancer lung CVA (cerebral vascular accident) Grandfather Cancer pancreatic Father Heart disease Hypertension Hyperlipidemia Grandfather Heart disease CVA (cerebral vascular accident) Social History Smoking Status: Never smoker alcohol intake: never substance use type: does not use caffeine: Yes (Occasionally) Type: coffee what type of physical activity do you participate in: walking frequency: 3-4 times per week HPI ADJUSTMENT Chief Complaint: neck and low back pain Visit Number: 12 Details: Melany is a 29 year old female who is here for adjustment. Pt. advises she is 5 1/2 weeks . Pt. states she is experiencing some mild soreness in her neck and low back. She had a massage yesterday which was helpful in relieving her tension and stiffness. She denies new injury, numbness, tingling or radiculopathy. She treats discomfort at home with heat, stretching and rubber ball massage. Melany reports chiropractic adjustments are helpful in relieving her discomfort but it gradually returns. Location: neck and low back Duration: intermittent Aggravating or associated factors: work posture, caring for child Relieving factors: chiro Pain Quality: aching and dull Exam Musc General: Yes normal gait, joint tenderness and decreased range of motion; No normal posture or muscle weakness Cervical Spine: Yes loss of normal cervical lordosis (left curve), Yes cervical muscular tenderness bilateral lower , Yes cervical spasm right upper intrinsics, right lower trapezius and paracervical muscles and Yes misalignment misalignment: C1, C5, C6 and C7 Thoracic/Lumber: Yes thoracic and lumbar spine normal to inspection, Yes paraspinal tenderness bilaterally in the mid lumbar and in the lower lumbar and on the right greater than left (midthoracic), Yes scoliosis (left cervicothoracic), Yes thoraco-lumbar spasm on the right greater than left (rhomboid, QL) and on the left greater than right (upper trap) and Yes misalignment T2, T3, T5, T6, T7, L3, L4, L5 and RIL Office Procedures Procedures - Chiropractic Procedures Manipulation: Cervical C2 and C6, Lumbar L3, Thoracic T6 and Pelvis RIL Manipulation: 3-4 regions Patient Response: positive Assessment and Plan Assessment and Plan (1) Segmental and somatic dysfunction of cervical region: Status: Acute (2) Segmental and somatic dysfunction of thoracic region: Status: Acute (3) Segmental and somatic dysfunction of lumbar region: Status: Acute (4) Segmental and somatic dysfunction of pelvic region: Status: Acute (5) Scoliosis: Status: Chronic Qualifiers: Scoliosis type: idiopathic Idiopathic scoliosis type: other Spinal region: cervicothoracic Qualified Code(s): M41.23 - Other idiopathic scoliosis, cervicothoracic region Comment: L cervicothoracic Orders: Orders Chiropractic Treatments 06/26/24 M99.01 - Segmental and somatic dysfunction of cervical region, M99.02 - Segmental and somatic dysfunction of thoracic region, M99.03 - Segmental and somatic dysfunction of lumbar region, M99.04 - Segmental and somatic dysfunc (more content not included)... Normal [facility] Bacteria Ur Culton Bacteria identified Cx Nom (U) ORGANISM ID: 1 <10,000 CFU/ml Normal urogenital muriel Normal [facility] Comment on above: Performed By: #### 6 30-4 ####[facility]CLIA [id number] [place] [address] [place] C. trachomatis+N. gonorrhoea e DNA BARRY+probe Ql (Unsp spec)on 06-16-2024 C. trachomatis rRNA BARRY+probe Ql (Unsp spec) Not detected Normal Not detected [facility] Comment on above: Order Comment: Speci men Type: SWABOrdering Facility: [facility] Address: [address] [place] [address] Performed By: #### 3 6902-5 ####[facility]CL[facility] [id number] [place] [address] [place] N. gonorrhoeae rRNA BARRY+probe Ql (Unsp spec) Not detected Normal Not detected [facility] Comment on above: Order Comment: Speci men Type: SWABOrdering Facility: [facility] Address: [address] [place] [address] Performed By: #### 3 6902-5 ####[facility]CL[facility] [id number] [place] [id number] [place] [employer] CHAIR ULTRASOUNDon 06-16-20 Indication Uncertain dates, Uncertain dates Impression Single intrauterine gestational sac, CRL indicates discrepancy from clinical dates, BELTRAN based on today's ultrasound, cardiac activity is visualized, Uncertain LMP, BELTRAN based on today's ultrasound Recommendations Follow up for NT scan if desired Method Transvaginal ultrasound examination Srivastava . Number of embryos: 1 Dating LMP on: 04/19/2024 GA by LMP 8 w + 2 d BELTRAN by LMP: 01/24/2025 Ultrasound examination on: 06/16/2024 GA by U/S based upon: CRL GA by U/S 6 w + 4 d BELTRAN by U/S: 02/05/2025 Assigned: based on ultrasound (CRL), selected on 06/16/2024 Assigned GA 6 w + 4 d Assigned BLETRAN: 02/05/2025 Biometry Standard CRL 7.0 mm 6w 4d 71% Hadlock Assessment CRL 7.0 mm 6w 4d 71% [place]lock Performed By: Machelle Weems CNM Read By: Machelle Weems CNM MATERNAL MEDICINE [facility] Radiology Study observation (narrative) [facility] Vero 06-10-2024 CNPKayla Telephone (OBGYWM) MELANY MACE ([id number]) 1995 [facility] Date Time Provider Department 06/10/24 RAMA JACOB During your visit today, we recorded the following information about you: Rama Jacob MD 06/10/2024 3:28 PM Signed Nausea early in . Requesting medication be sent to the pharmacy. Allergies As of Date: 06/10/2024 Noted Allergy Reaction MOLD 04/12/2005 RAGWEED 04/12/2005 Date Reviewed: 05/05/2024 Reviewed by: Rosemary Lacy LPN - Fully Assessed Primary Visit Diagnosis:Nausea [R11.0] Order(s):ondansetron (ZOFRAN) 4 mg tabletTake 1 tablet by mouth every 8 hours as needed for nausea/vomiting.Disp: 30 tabletRfl: 1 Prescriptions as of 06/10/2024 - ondansetron (ZOFRAN) 4 mg tablet Take 1 tablet by mouth every 8 hours as needed for nausea/vomiting. - sertraline (ZOLOFT) 25 mg tablet Take 1 tablet by mouth once daily. - prental multivitamin 27 mg iron- 800 mcg tablet Take 1 tablet by mouth once daily. Problem List As Of Date 06/10/2024 Noted Resolved Back strain [S39.012A] 02/10/2013 10/24/2014 Mild concussion [S06.0XAA] 05/01/2013 10/24/2014 Mononucleosis [B27.90] 10/24/2014 Erythema nodosum [L52] 12/31/2014 Family history of Higuera syndrome [Z82.79] 07/05/2022 Nausea and vomiting in [O21.9] 08/07/2022 Encounter for supervision of normal first pregn*10/27/2022 Positive GBS test [B95.1] 02/07/2023 Prescriptions ordered this encounter Disp Refills Start End ONDANSETRON HCL 4 MG TABLET 30 t* 1 06/10/2024 07/10/2024 Route: ORAL Sig: Take 1 tablet by mouth every 8 hours as needed for nausea/vomiting. Medications Discontinued During This Encounter Prescriptions - meclizine (ANTIVERT) 25 mg tab (Discontinued) Take 1 tablet by mouth three times a day as needed. Encounter Status:Closed by RAMA JACOB on 06/10/24 Normal [facility] Chiropractic Reporton 2023 Chiropractic Report [facility]ropract[facility] [address] [place] [id number] OFFICE VISIT Date of Service: 05/29/24 MR#: [id number] Acct: [id number] Name: RODRIMELANY WARREN Rep #: [id number] : 1995 Provider: DC Dr. Enid Mckinney Age/Sex: 29/F [place] [facility] [place]: Signed Intake Vital Signs 04/20/23 10:30 Height 5 ft 4 in Intake Visit Reasons: Back pain Chief Complaint: neck pain Allergies mold Allergy (Verified 05/29/24 16:50) unknown ragweed pollen Allergy (Verified 05/29/24 16:50) unknown Medications ???Medication ???Instructions ???Recorded ???Confirmed ???Type mv-mn no.97-folic 180 mcg-dha 25 1 tab PO DAILY pregnan 04/19/22 05/29/24 History mg-herb no.293 25 mg chewable tablet (Alive Daily Support ) loratadine 10 mg tablet (Allergy 10 mg PO DAILY 04/20/23 05/29/24 History Relief (loratadine)) sertraline 25 mg tablet 25 mg PO QDAY 12/24/23 05/29/24 History PFSH Medical History Elevated liver enzymes Laceration, obstetrical, second degree Care and examination of lactating mother (spontaneous vaginal delivery) Encounter for elective induction of labor 39 weeks gestation of Shortness of breath Palpitations Chronic neck pain Preventative health care Menstrual irregularity Other vitreous opacities, bilateral Urinary frequency Seasonal allergies Back pain Persistent headaches Surgical History H/O wisdom tooth extraction Family History Grandmother Cancer lung CVA (cerebral vascular accident) Grandfather Cancer pancreatic Father Heart disease Hypertension Hyperlipidemia Grandfather Heart disease CVA (cerebral vascular accident) Social History Smoking Status: Never smoker alcohol intake: never substance use type: does not use caffeine: Yes (Occasionally) Type: coffee what type of physical activity do you participate in: walking frequency: 3-4 times per week HPI Back pain Chief Complaint: Neck/Back pain Visit Number: 11 Details: Melany is a 29 year old female who is here to f/u on neck and low back pain. Pt. advises she is 4 weeks . She had a massage yesterday but c/o mild neck tightness particularly on the right side. She states she has been experiencing low back soreness as well. She states her low back soreness is equal across bilaterally. She continues to treat pain at home with heat, stretching and rubber ball massage. She denies new injury, numbness, tingling or radiculopathy. Melany reports chiropractic adjustments are effective in relieving her pain and discomfort but it gradually returns. Onset: 03/20/23 Location: neck and upper back Duration: frequent Aggravating or associated factors: looking down, bending Relieving factors: chiro Pain Quality: aching and dull Exam Musc General: Yes normal gait, joint tenderness and decreased range of motion; No normal posture or muscle weakness Cervical Spine: Yes loss of normal cervical lordosis (left curve), Yes cervical muscular tenderness bilateral diffuse , Yes cervical spasm right upper intrinsics, right lower trapezius and paracervical muscles and Yes misalignment misalignment: C1, C5, C6 and C7 Thoracic/Lumber: Yes thoracic and lumbar spine normal to inspection, Yes paraspinal tenderness bilaterally in the mid lumbar and in the lower lumbar and on the right greater than left (midthoracic), Yes scoliosis (left cervicothoracic), Yes thoraco-lumbar spasm on the right greater than left (rhomboid, QL) and on the left greater than right (upper trap) and Yes misalignment T2, T3, T5, T6, T7, L3, L4, L5 and RIL Office Procedures Procedures - Chiropractic Procedures Manipulation: Cervical C2 and C6, Lumbar L3, Thoracic T6 and Pelvis RIL Manipulation: 3-4 regions Patient Response: positive Assessment and Plan Assessment and Plan (1) Segmental and somatic dysfunction of cervical region: Status: Acute (2) Scoliosis: Status: Chronic Qualifiers: Idiopathic scoliosis type: other Scoliosis type: idiopathic Spinal region: cervicothoracic Qualified Code(s): M41.23 - Other idiopathic scoliosis, cervicothoracic region Comment: L cervicothoracic (3) Segmental and somatic dysfunction of thoracic region: Status: Acute (4) Segmental and somatic dysfunction of lumbar region: Status: Acute (5) Segmental and somatic dysfunction of pelvic region: Status: Acute Orders: Orders Chiropractic Treatments 05/29/24 M41.23 - Other idiopathic scoliosis, cervicothoracic region, M99.01 - Segmental and somatic dysfunction of cervical region, M99.02 - Segmental and somatic dysfunction o (more content not included)... Normal [facility] 05-05-2024 [facility] Office Visit (FAMPWS ) MELANY MACE ([id number]) 1995 [facility] Date Time Provider Department 05/05/24 8:00 AM CARYN STRAUSS During your visit today, we recorded the following information about you: Pulse Respiration Blood pressure Weight 86/minute 18/minute 114/70 59.2 kg Height 1.65 m Caryn Strauss APRN.CNP 05/05/2024 8:32 AM Signed 05/05/2024 Patient presents with: Establish Care SUBJECTIVE: This is a 29 year old that is here today for Above Complaints. Depression: takes Zoloft as prescribed. Works well to control symptoms. Does not attend counseling. Denies SI, HI or insomnia ONSET: one month LOCATION: right wrist DURATION: more constant the last couple for days CHARACTERISTICS: sharp AGGRAVATING FEATURES: picking up things ALLEVIATING FEATURES: massage has helped, chiropractor adjustment, ice and brace at night RADIATION: can go up into indico as an [employer] and thinks related to over use Denies past/present injury/surgery, redness, warmth, swelling, numbness, tingling or weakness Past medical, surgical, family, social hx, medications, allergies and health maintenance reviewed and updated. PAST MEDICAL HISTORY Diagnosis Date Mononucleosis 10/27/2014 Scoliosis of cervical spine Unspecified asthma(493.90) has not used inhaler since 2016 ALLERGIES Mold and Ragweed MEDICATIONS Current Outpatient Medications Medication Sig meclizine (ANTIVERT) 25 mg tab Take 1 tablet by mouth three times a day as needed. sertraline (ZOLOFT) 25 mg tablet Take 1 tablet by mouth once daily. prental multivitamin 27 mg iron- 800 mcg tablet Take 1 tablet by mouth once daily. No current facility-administered medications for this visit. Medications and allergies reviewed by this provider. SOCIAL HISTORY Social History Tobacco Use Smoking status: Never Smokeless tobacco: Never Vaping Use Vaping status: Never Used Substance Use Topics Alcohol use: Yes Comment: socially Drug use: No REVIEW OF SYSTEMS GENERAL: No weight loss, malaise or fevers HEENT: Negative for frequent or significant headaches, No changes in hearing or vision, no nose bleeds or other nasal problems NECK: Negative for lumps, goiter, pain and significant neck swelling RESPIRATORY: Negative for cough, hemoptysis, wheezing, COPD, dyspnea or shortness of breath CARDIOVASCULAR: Negative for chest pain, leg swelling, hypertension, CHF or palpitations GI: No nausea, vomiting, or diarrhea : No history of dysuria, frequency or incontinence 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 OBJECTIVE: BP 114/70 Pulse 86 Resp 18 Ht 165 cm (5' 4.96) Wt 59.2 kg (130 lb 9.6 oz) LMP 03/23/2024 (Exact Date) SpO2 98% BMI 21.76 kg/m? . Vital signs reviewed by this provider. APPEARANCE Well appearing, alert, in no acute distress, well-hydrated, well nourished. EYES conjunctiva and sclera normal. EARS External ears normal, canals clear NECK Supple, no adenopathy; thyroid symmetric, normal size, no bruits HEART RRR with normal S1 and S2, no murmurs, no gallops, no JVD appreciated LUNG clear to auscultation. No wheezes, rhonchi or rales ABDOMEN bowel sounds normoactive, no bruits, soft, non-tender, non-distended EXTREMITIES Extremities normal, No deformities, No skin discoloration, and No edema SKIN Skin color, texture, turgor normal, no suspicious rashes or lesions to exposed skin RIGHT WRIST: No obvious deformity, erythema, ecchymosis or swelling. FROM Reports discomfort with flexion and extension. Mild TTP over dorsal wrist Depression Screening Never done Anxiety Screening Never done Influenza Vaccine(1) due on 01/19/2025 Covid-19 Vaccine(1 - 2024-25 season) due on 05/05/2025 Cervical Cancer Screening due on 04/17/2027 DTaP,Tdap,Td Vaccine(9 - Td or Tdap) due on 12/04/2032 Hepatitis B Vaccine Completed HPV Vaccine Completed Hepatitis C Screening Completed HIV Screening Completed ASSESSMENT/PLAN: 1. Encounter for medical examination to establish care - ICD9: V70.9, ICD10: Z00.00 (primary diagnosis) - Counseled on healthy diet and regular exercise - Follow up for annual exam in one year 2. Screening for depression - ICD9: V79.0, ICD10: Z13.31 - DEPRESSION SCREENING 3. Encounter for screening examination for other mental health and behavioral disorders - ICD9: V79.8, ICD10: Z13 (more content not included)... Normal [facility] Chiropractic Reporton 2023 Chiropractic Report [facility] [address] [place] [address] OFFICE VISIT Date of Service: 04/28/24 MR#: [id number] Acct: [id number] Name: MELANY MACE Rep #: [id number] : 1995 Provider: EDUARD Mckinney Age/Sex: 29/F [place] [facility] [place]: Signed Intake Vital Signs 04/20/23 10:30 Height 5 ft 4 in Intake Visit Reasons: Back pain Chief Complaint: neck pain Is patient in pain?: Yes (right hip and wrist) Pain scale (1-10): 4 Allergies mold Allergy (Verified 04/28/24 10:11) unknown ragweed pollen Allergy (Verified 04/28/24 10:11) unknown Medications ???Medication ???Instructions ???Recorded ???Confirmed ???Type mv-mn no.97-folic 180 mcg-dha 25 1 tab PO DAILY pregnan 04/19/22 04/28/24 History mg-herb no.293 25 mg chewable tablet (Alive Daily Support ) loratadine 10 mg tablet (Allergy 10 mg PO DAILY 04/20/23 04/28/24 History Relief (loratadine)) sertraline 25 mg tablet 25 mg PO QDAY 12/24/23 04/28/24 History [facility] Medical History Elevated liver enzymes Laceration, obstetrical, second degree Care and examination of lactating mother (spontaneous vaginal delivery) Encounter for elective induction of labor 39 weeks gestation of Shortness of breath Palpitations Chronic neck pain Preventative health care Menstrual irregularity Other vitreous opacities, bilateral Urinary frequency Seasonal allergies Back pain Persistent headaches Surgical History H/O wisdom tooth extraction Family History Grandmother Cancer lung CVA (cerebral vascular accident) Grandfather Cancer pancreatic Father Heart disease Hypertension Hyperlipidemia Grandfather Heart disease CVA (cerebral vascular accident) Social History Smoking Status: Never smoker alcohol intake: never substance use type: does not use caffeine: Yes (Occasionally) Type: coffee what type of physical activity do you participate in: walking frequency: 3-4 times per week HPI Back pain Chief Complaint: Neck/Back pain Visit Number: 10 Details: Melany is a 29 year old female who is here to f/u on neck and low back pain. Pt. reports her neck and low back pain have improved since her last adjustment. She states she has been experiencing some right hip pain since yesterday. She denies known cause but states it feels stuck like it needs to crack. She rates her pain 4/10 and states her right hip pain is worse with walking and weight bearing. Pt. also c/o right wrist pain today. She states her wrist is aggravated with her job. She has some numbness and tingling at times in her right pinky finger. She treats pain at home with heat, stretching and rubber ball massage. She denies new injury, numbness, tingling or radiculopathy. Melany reports chiropractic adjustments are effective in relieving her pain and discomfort. Onset: 03/20/23 Location: neck and upper back Duration: frequent Aggravating or associated factors: looking down, bending Relieving factors: chiro Pain Quality: aching and dull Exam Musc General: Yes normal gait, joint tenderness and decreased range of motion; No normal posture or muscle weakness Cervical Spine: Yes loss of normal cervical lordosis (left curve), Yes cervical muscular tenderness right greater than left diffuse , Yes cervical spasm right upper intrinsics, right lower trapezius and paracervical muscles, Yes Trigger (R scalene) and Yes misalignment misalignment: C1, C5, C6 and C7 Thoracic/Lumber: Yes thoracic and lumbar spine normal to inspection, Yes paraspinal tenderness bilaterally in the mid lumbar and in the lower lumbar and on the right greater than left (midthoracic), Yes scoliosis (left cervicothoracic), Yes thoraco-lumbar spasm on the right greater than left (rhomboid, QL) and on the left greater than right (upper trap) and Yes misalignment T2, T3, T5, T6, T7, L3, L4, L5 and RIL Office Procedures Procedures - Chiropractic Procedures Manipulation: Cervical C2 and C6, Lumbar L3, Thoracic T6 and Pelvis RIL Manipulation: 3-4 regions Patient Response: positive Assessment and Plan Assessment and Plan (1) Segmental and somatic dysfunction of cervical region: Status: Acute (2) Scoliosis: Status: Chronic Qualifiers: Idiopathic scoliosis type: other Scoliosis type: idiopathic Spinal region: cervicothoracic Qualified Code(s): M41.23 - Other idiopathic scoliosis, cervicothoracic region Comment: L cervicothoracic (3) Segmental and somatic dysfunction of thoracic region: Status: Acute (4) Segmental and somatic dysfunction of lumbar region: Status: Acu (more content not included)... [facility] 04-17-2024 [facility] Office Visit (OBGYWM ) MELANY MACE ([id number]) 1995 [facility] Date Time Provider Department 04/17/24 10:45 AM MACHELLE WEEMS OBGYWM During your visit today, we recorded the following information about you: Blood pressure Weight Height Last Period 108/64 59.4 kg 1.626 m 03/23/24 Machelle Weems APRN.CNM 04/17/2024 11:21 AM Signed Egg Grader offered: Patient declines. Mosley is a 29 year old who presents for an annual gynecologic exam without complaints. First period since was 03/23/24- very heavy and lasted 6 days Contraception: none/ condoms HPV vaccine: Yes Last Pap: 09/09/2020 normal HPV: N/A History of abnormal pap: No Last mammogram: never Sexually active: Yes History of STDS: None Pain with intercourse: No Postcoital bleeding: No Vaginal dryness: No OB History T1 L1 SAB0 IAB0 Ectopic0 Multiple0 Live Births1 Manager Council History LMP: 03/23/2024 (Exact Date), Having periods Age at Menarche: Age at First : Age at Menopause: [employer] History Comments: Sexual Activity: Yes; Male Contraception: Pill PAST MEDICAL HISTORY Diagnosis Date Mononucleosis 10/27/2014 Scoliosis of cervical spine Unspecified asthma(493.90) has not used inhaler since 2015 PAST SURGICAL HISTORY Procedure Laterality Date EXTRACTION, ERUPTED TOOTH OR EXPOSED ROOT (ELEVATION AND/OR FORCEPS REMOVAL) FAMILY HISTORY Problem Relation Age of Onset Skin Cancer Mother Heart Father triple bypass 50 Lung Cancer Maternal Grandmother other (bladder cancer) Maternal Grandfather No Known Problems Paternal Grandmother Heart Paternal Grandfather Stroke Paternal Grandfather Dementia Paternal Grandfather SOCIAL HISTORY Social History Tobacco Use Smoking status: Never Smokeless tobacco: Never Vaping Use Vaping status: Never Used Substance Use Topics Alcohol use: Yes Comment: socially Drug use: No REVIEW OF SYSTEMS Abdomen: No abdominal pain, nausea, vomiting, diarrhea, or constipation. No bloating, early satiety, indigestion, or increased flatulence. Bladder: No dysuria, gross hematuria, urinary frequency, urinary urgency, or incontinence. Breast: No breast lumps, nipple d/c, overlying skin changes, redness or skin retraction. Allergies and current medication updated:Yes SENSITIVE EXAM: The sensitive examination was discussed with the Patient or Patient's Authorized Circuit Board Drafter. As applicable, any other physician, advance practice provider, medical student, or other health professional student that will be observing or involved in the sensitive examination for educational or training purposes was discussed with the Patient or Authorized Circuit Board Drafter. The Patient or Authorized Circuit Board Drafter has agreed to proceed with the sensitive examination. (Sensitive examination includes inspection and/or palpation of the breasts, pelvis, prostate and anorectal regions). EXAM: BP 108/64 Ht 5' 4 (1.63m) Wt 131 lb (59.4kg) LMP 03/23/2024 BMI 22.47 kg/(m2). GENERAL: pleasant, female in no apparent distress HEENT: Normocephalic, atraumatic, mucus membranes moist, and no lesions NECK: Supple and full range of motion DERMATOLOGY: Normal and without lesions BREAST: soft, non-tender, symmetric, no dominant mass, normal nipple-areolar complex, no lymphadenopathy, no nipple discharge, and fibrocystic changes CHEST: Normal inspiratory effort ABDOMEN: soft, non-tender, and no masses PELVIC: external genitalia normal, normal Bartholin's glands, urethra, Bucks's glands, no vulvar lesions, no cervical lesions, good vaginal support, physiologic discharge present, normal appearing perineal body and perianal region BIMANUAL: uterus normal size, shape and consistency, no adnexal masses, non-tender, and no cervical motion tenderness RECTOVAGINAL: deferred. NEURO: alert and oriented x3,exam grossly non-focal EXTREMITIES: normal ASSESSMENT/PLAN: 1) Health maintenance: Pap done with reflex HPV. Nutrition, exercise and routine health maintenance exams reviewed. 2) Contraception: none. 3) STD screening: Declined STD check. 4) Thinking of decreasing and stopping Zoloft- discussed weaning process Follow up one year or sooner as needed Machelle Weems APRN.CNM Allergies As of Date: 04/17/2024 Noted Allergy Reaction MOLD 04/12/2005 RAGWEED 04/12/2005 Date Reviewed: 04/17/2024 Reviewed by: Machelle Weems APRN.CNM - Fully Assessed Reason for Visit: Well Woman [1463] Primary Visit Diagnosis:Encounter for gynecological examination (general) (routine) without abnormal findings [Z01.419] Other Visit Diagnoses:Screening for cervical cancer [Z12.4] Encounter for screening for human papillomavirus (HPV) [Z11.51] Anxiety [F41.9] Order(s):PAP TEST [[id number]] Order #: [id number]. #[id number] Prescriptions as of 04/17/2024 - [facility] (more content not included)... Normal [facility] PAP TESTon 04-17-2024 ADEQUACY Satisfactory for interpretation. Normal [facility] Comment on above: Order Comment: Speci men Type: FLUID SPECIMENOrdering Facility: [facility] Address: [address] [place] [address] Performed By: #### L [id number] ####[facility]ORATORYCLIA [id number] [address] STATES [facility] LABCLIA [id number] [place] [address] [place] CASE REPORT Normal [facility] Comment on above: Order Comment: Speci men Type: FLUID SPECIMENOrdering Facility: [facility] Address: [address] [place] [address] Result Comment: Gyne cologic Cytology Report Case: [id number] Authorizing Provider: Machelle Weems APRN.CNM Collected: 04/17/2024 11:00 AM Ordering Location: OB/Gynecology Received: 04/17/2024 12:23 PM First Screen: Gannon, Mehreen, CT, ASCP Specimen: Pap Test, ThinPrep, Cervix Performed By: #### L [id number] ####[facility] LABORATORYCLIA [id number] [place] [address] [place] [facility] LABCLIA [id number] [place] [address] [place] CLINICAL HISTORY, CYTOLOGY, 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 Routine Exam Normal [facility] Comment on above: Order Comment: Speci men Type: FLUID SPECIMENOrdering Facility: [facility] Address: [address] [place] [address] Performed By: #### L [id number] ####[facility]ORATORYCLIA [id number] [place] [address] [place] [facility] [id number] [address] STATES OF [place] FINAL PERFORMING LAB Normal [facility] Comment on above: Order Comment: Speci men Type: FLUID SPECIMENOrdering Facility: [facility] Address: [address] [place], [place] [id number] Result Comment: Tech nical component, hypercil core transformer assembler screening performed at [facility], [address], [place] [address] CLIA# [id number] Diagnostic interpretation performed at [facility], [address], [place] [address] CLIA# [id number] Vice President Industrial Relations: Georgette Hernandez M.D. Performed By: #### L [id number] ####[facility] LABORATORYCLIA [id number] [place] [id number] [place] [facility] LABCLIA [id number] [place] [address] [place] HPV REFLEX HPV if Atypical Normal [facility] Comment on above: Order Comment: Speci men Type: FLUID SPECIMENOrdering Facility: [facility] Address: [address] [place] [address] Performed By: #### L [id number] ####[facility] LABORATORYCLIA [id number] [place] [address] [place] [facility] LABCLIA [id number] [place] [address] [place] INTERPRETATION, CYTOLOGY, DENTAL 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 Normal [facility] Comment on above: Order Comment: Speci men Type: FLUID SPECIMENOrdering Facility: [facility] Address: [address] [place] [address] Result Comment: Nega tive for intraepithelial lesion or malignancy. Performed By: #### L [id number] ####[facility] LABORATORYCLIA [id number] [place] [id number] [place] [facility] LABCLIA [id number] [place] [id number] [place] LMP 03/23/2024 Normal [facility] Comment on above: Order Comment: Speci men Type: FLUID SPECIMENOrdering Facility: [facility] Address: [address] [place] [address] Performed By: #### L [id number] ####[facility]ORATORYCLIA [id number] [address] LABCLIA [id number] [place] [address] [place] PAP DISCLAIMER COMMENT The Pap Smear is a screening test for cervical cancer. False negative results occur with all screening tests, emphasizing the need for rescreening at recommended intervals, and clinical correlation. Normal [facility] Comment on above: Order Comment: Speci men Type: FLUID SPECIMENOrdering Facility: [facility] Address: [address] [place] [address] Performed By: #### L [id number] ####[facility] CENTERIA [id number] [address] LABCLIA [id number] [place] [address] [place] PAP DITCHING MACHINE OPERATING ENGINEER COMMENT This specimen has been analyzed by the ThinPrep Imaging System, an automated imaging and review system, which assists the laboratory in evaluating cells on ThinPrep Pap tests. Following automated imaging, selected luther from every slide are reviewed by a hypercil core transformer assembler. Normal [facility] Comment on above: Order Comment: Speci men Type: FLUID SPECIMENOrdering Facility: [facility] Address: [address] [place] [address] Performed By: #### L [id number] ####[facility] LABORATORYIA [id number] [address] LABCLIA [id number] [place] [address] [place] Chiropractic Reporton 2023 Chiropractic Report [facility] [address] [place] [address] OFFICE VISIT Date of Service: 03/31/24 MR#: [id number] Acct: [id number] Name: MELANY MACE Rep #: [id number] : 1995 Provider: EDUARD Mckinney Age/Sex: 29/F Location: [facility] Status: Signed Intake Vital Signs 04/20/23 10:30 Height 5 ft 4 in Intake Visit Reasons: Back pain Chief Complaint: neck pain Is patient in pain?: Yes (neck) Pain scale (1-10): 3 Allergies mold Allergy (Verified 03/31/24 10:26) unknown ragweed pollen Allergy (Verified 03/31/24 10:26) unknown Medications ???Medication ???Instructions ???Recorded ???Confirmed ???Type mv-mn no.97-folic 180 mcg-dha 25 1 tab PO DAILY pregnan 04/19/22 03/31/24 History mg-herb no.293 25 mg chewable tablet (Alive Daily Support ) loratadine 10 mg tablet (Allergy 10 mg PO DAILY 04/20/23 03/31/24 History Relief (loratadine)) sertraline 25 mg tablet 25 mg PO QDAY 12/24/23 03/31/24 History PFSH Medical History Elevated liver enzymes Laceration, obstetrical, second degree Care and examination of lactating mother (spontaneous vaginal delivery) Encounter for elective induction of labor 39 weeks gestation of Shortness of breath Palpitations Chronic neck pain Preventative health care Menstrual irregularity Other vitreous opacities, bilateral Urinary frequency Seasonal allergies Back pain Persistent headaches Surgical History H/O wisdom tooth extraction Family History Grandmother Cancer lung CVA (cerebral vascular accident) Grandfather Cancer pancreatic Father Heart disease Hypertension Hyperlipidemia Grandfather Heart disease CVA (cerebral vascular accident) Social History Smoking Status: Never smoker alcohol intake: never substance use type: does not use caffeine: Yes (Occasionally) Type: coffee what type of physical activity do you participate in: walking frequency: 3-4 times per week HPI Back pain Chief Complaint: Neck/Back pain Visit Number: 9 Details: Melany is a 29 year old female who is here to f/u on neck and low back pain. Pt. complains of neck pain and stiffness particularly worse on the right side. She states the neck pain extends into her right shoulder/trap area. She rates her pain 3/10 today. She states she had a massage last week and feels like something got pinched on the process. Her neck pain is aggravated with nursing, lifting and caring for her young daughter. She denies low back pain today. She was camping last week and noticed that she's had some vertigo since then. Its worse w movement. No nausea associated. Pt. treats pain at home with heat, stretching and rubber ball massage. She denies new injury, numbness, tingling or radiculopathy. Melany reports chiropractic adjustments are effective in relieving her pain and discomfort. Onset: 03/20/23 Location: neck and upper back Duration: frequent Aggravating or associated factors: looking down, bending Relieving factors: chiro Pain Quality: aching and dull Exam Musc General: Yes normal gait, joint tenderness and decreased range of motion; No normal posture or muscle weakness Cervical Spine: Yes loss of normal cervical lordosis (left curve), Yes cervical muscular tenderness bilateral diffuse , Yes cervical spasm right upper intrinsics, right lower trapezius and paracervical muscles, Yes Trigger (R scalene) and Yes misalignment misalignment: C1, C5, C6 and C7 Thoracic/Lumber: Yes thoracic and lumbar spine normal to inspection, Yes paraspinal tenderness bilaterally in the mid lumbar and in the lower lumbar and on the right greater than left (midthoracic), Yes scoliosis (left cervicothoracic), Yes thoraco-lumbar spasm bilaterally (lumbar paraspinal) in the upper lumbar, in the mid lumbar and in the lower lumbar, on the right greater than left (rhomboid) and on the left greater than right (upper trap) and Yes misalignment T2, T3, T5, T6, T7, L3, L4 and L5 Office Procedures Procedures - Chiropractic Procedures Manipulation: Cervical C2 and C6, Lumbar L3, Thoracic T6 and Pelvis LIL Manipulation: 3-4 regions Traction, Mechanical: Yes Patient Response: positive Assessment and Plan Assessment and Plan (1) Segmental and somatic dysfunction of cervical region: Status: Acute (2) Scoliosis: Status: Chronic Qualifiers: Idiopathic scoliosis type: other Scoliosis type: idiopathic Spinal region: cervicothoracic Qualified Code(s): M41.23 - Other idiopathic scoliosis, cervicothoracic region Comment: L cervicothoracic (3) Segmental and somatic dysfu (more content not included)... Normal [facility] Chiropractic Reporton 2023 Chiropractic Report [facility] [address] [place] [address] OFFICE VISIT Date of Service: 02/25/24 MR#: [id number] Acct: [id number] Name: MELANY MACE Rep #: [id number] : 1995 Provider: EDUARD Mckinney Age/Sex: 29/F Location: [facility] Status: Signed Intake Vital Signs 04/20/23 10:30 Height 5 ft 4 in Intake Visit Reasons: Back pain Chief Complaint: neck pain Is patient in pain?: Yes (Right neck) Pain scale (1-10): 3 Allergies mold Allergy (Verified 02/25/24 10:41) unknown ragweed pollen Allergy (Verified 02/25/24 10:41) unknown Medications ???Medication ???Instructions ???Recorded ???Confirmed ???Type mv-mn no.97-folic 180 mcg-dha 25 1 tab PO DAILY pregnan 04/19/22 02/25/24 History mg-herb no.293 25 mg chewable tablet (Alive Daily Support ) loratadine 10 mg tablet (Allergy 10 mg PO DAILY 04/20/23 02/25/24 History Relief (loratadine)) sertraline 25 mg tablet 25 mg PO QDAY 12/24/23 02/25/24 History PFSH Medical History Elevated liver enzymes Laceration, obstetrical, second degree Care and examination of lactating mother (spontaneous vaginal delivery) Encounter for elective induction of labor 39 weeks gestation of Shortness of breath Palpitations Chronic neck pain Preventative health care Menstrual irregularity Other vitreous opacities, bilateral Urinary frequency Seasonal allergies Back pain Persistent headaches Surgical History H/O wisdom tooth extraction Family History Grandmother Cancer lung CVA (cerebral vascular accident) Grandfather Cancer pancreatic Father Heart disease Hypertension Hyperlipidemia Grandfather Heart disease CVA (cerebral vascular accident) Social History Smoking Status: Never smoker alcohol intake: never substance use type: does not use caffeine: Yes (Occasionally) Type: coffee what type of physical activity do you participate in: walking frequency: 3-4 times per week HPI Back pain Chief Complaint: Neck/Back pain Visit Number: 8 Details: Melany is a 28 year old female who is here to f/u on neck and low back pain. Pt. complains of ongoing neck pain and stiffness that continues to be worse on the right side. She reports experiencing a few dull headaches recently. The neck pain extends into her traps bilaterally. Her neck pain is aggravated with nursing, lifting and caring for her baby girl. She recently bought a new cervical support pillow and it made her neck pain worse, a week ago she switched to using her husbands pillow and that has been helpful. She complains of low back pain and stiffness. She denies hip pain. She rates her pain 3/10. Pt. treats pain at home with heat, stretching and rubber ball massage. She has also been using her cervical support pillow to help with her neck pain and stiffness. She denies new injury, numbness, tingling or radiculopathy. Melany reports chiropractic adjustments are effective in relieving her pain and discomfort. Onset: 03/20/23 Location: neck and upper back Duration: frequent Aggravating or associated factors: lookind down, bending, breast feeding Relieving factors: chiro Pain Quality: aching and dull Exam Musc General: Yes normal gait, joint tenderness and decreased range of motion; No normal posture or muscle weakness Cervical Spine: Yes loss of normal cervical lordosis (left curve), Yes cervical muscular tenderness right greater than left diffuse , Yes cervical spasm right upper intrinsics, right lower trapezius and paracervical muscles, Yes Trigger (R scalene) and Yes misalignment misalignment: C1, C5, C6 and C7 Thoracic/Lumber: Yes thoracic and lumbar spine normal to inspection, Yes paraspinal tenderness bilaterally in the mid lumbar and in the lower lumbar and on the right greater than left (m idthoracic), Yes scoliosis (left cervicothoracic), Yes thoraco-lumbar spasm bilaterally (lumbar paraspinal) in the upper lumbar, in the mid lumbar and in the lower lumbar, on the right greater than left (rhomboid) and on the left greater than right (upper trap) and Yes misalignment T2, T3, T5, T6, T7, L3, L4 and L5 Office Procedures Procedures - Chiropractic Procedures Manipulation: Cervical C2 and C6, Lumbar L3, Thoracic T3 and T6 and Pelvis LIL Manipulation: 3-4 regions Patient Response: positive Assessment and Plan Assessment and Plan (1) Back pain: Status: Acute Qualifiers: Back pain laterality: right Back pain location: thoracic back pain Chronicity: acute Qualified Code(s): M54.6 - Pain in thoracic spine (2) Segmental and somatic dysf (more content not included)... Normal [facility] CNTHERAPYon 01-28-2024 CNTHERAPY OT/PT/Speech Visit (AKPTB) MELANY MACE ([id number]) 1995 [facility] Date Time Provider Department 01/28/24 9:30 AM BRANDT KOHLER Date Time Provider Department Center 01/28/2024 9:30 AM [id number], [facility] Reason for Visit: Physical Therapy [503] Primary Visit Diagnosis:Pelvic floor dysfunction [M62.89] Other Visit Diagnosis:Urgency of urination [R39.15] Allergies As of Date: 01/28/2024 Noted Allergy Reaction MOLD 04/12/2005 RAGWEED 04/12/2005 Date Reviewed: 11/26/2023 Reviewed by: Machelle Weems APRN.CNM - Fully Assessed Prescriptions as of 01/28/2024 - sertraline (ZOLOFT) 25 mg tablet Take 1 tablet by mouth once daily. - promethazine (PHENERGAN) 12.5 mg tablet Take 1-2 tablets by mouth every 6 hours as needed for nausea/vomiting. - prental multivitamin 27 mg iron- 800 mcg tablet Take 1 tablet by mouth once daily. Mattress Filler: Addendum Therapy (PT/OT/Speech/Resp) ID: [id number] 01/28/2024 10:04 AM Author: BRANDT KOHLER Signed by BRANDT KOHLER PT on 01/28/2024 at 10:05 AM * * * This document replaces document [id number] * * * Document text: Program_ID:[id number] Access Code: [email or web address] URL: [email or web address] Date: 01-28-2024 Prepared By: Bri Miles Program Notes Exercises - Supine Diaphragmatic Breathing - 10 x daily - 7 x weekly - 1 sets - 5-10 reps - Seated Pelvic Floor Contraction - 1 x daily - 7 x weekly - 1 sets - 5-10 reps - Seated Pelvic Floor Contraction - 1 x daily - 7 x weekly - 3 sets - 10 reps - Quadruped on Forearms Hip Extension - 1 x daily - 4 x weekly - 2 sets - 10 reps - Bridge with Hip Abduction and Resistance - 1 x daily - 4 x weekly - 1-2 sets - 10 reps - Supine Active Straight Leg Raise - 1 x daily - 4 x weekly - 1-2 sets - 10 reps - Clamshell with Resistance - 1 x daily - 4 x weekly - 1 sets - 10 reps - Standing Anti-Rotation Press with Anchored Resistance - 1 x daily - 4 x weekly - 2 sets - 10 reps - Standing March - 1 x daily - 7 x weekly - 1 sets - 10 reps Patient Education - cc Pelvic Floor - Diaphragmatic Breathing - cc Pelvic Floor - Lengthening - Get To Know Your Pelvic Floor- Female - Urinary Urge Control Techniques - Bladder Retraining - cc Pelvic Floor - Bladder Ernesto - Irritants - cc Pelvic Floor - Bladder Emptying Ideas ----- Normal [facility] THERAPY NTon 01-28-2024 THERAPY NT HNO ID: [id number] Author: BRANDT KOHLER PT Service: ? Author Type: Physical Therapist Type: Therapy (PT/OT/Speech/Resp) Filed: 01/28/2024 10:05 Note Text: Program_ID:[id number] Access Code: [email or web address] URL: [email or web address] Date: 01-28-2024 Prepared By: Bri Miles Program Notes Exercises - Supine Diaphragmatic Breathing - 10 x daily - 7 x weekly - 1 sets - 5-10 reps - Seated Pelvic Floor Contraction - 1 x daily - 7 x weekly - 1 sets - 5-10 reps - Seated Pelvic Floor Contraction - 1 x daily - 7 x weekly - 3 sets - 10 reps - Quadruped on Forearms Hip Extension - 1 x daily - 4 x weekly - 2 sets - 10 reps - Bridge with Hip Abduction and Resistance - 1 x daily - 4 x weekly - 1-2 sets - 10 reps - Supine Active Straight Leg Raise - 1 x daily - 4 x weekly - 1-2 sets - 10 reps - Clamshell with Resistance - 1 x daily - 4 x weekly - 1 sets - 10 reps - Standing Anti-Rotation Press with Anchored Resistance - 1 x daily - 4 x weekly - 2 sets - 10 reps - Standing March - 1 x daily - 7 x weekly - 1 sets - 10 reps Patient Education - cc Pelvic Floor - Diaphragmatic Breathing - cc Pelvic Floor - Lengthening - Get To Know Your Pelvic Floor- Female - Urinary Urge Control Techniques - Bladder Retraining - cc Pelvic Floor - Bladder Ernesto - Irritants - cc Pelvic Floor - Bladder Emptying Ideas Normal [facility] CNTHERAPYon 01-14-2024 CNTHERAPY OT/PT/Speech Visit (AKPTB) MELANY MACE ([id number]) 1995 [facility] Date Time Provider Department 01/14/24 11:45 AM BRANDT KOHLER Date Time Provider Department Center 01/14/2024 11:45 AM [id number] KOHLER [facility] Reason for Visit: Physical Therapy [503] Primary Visit Diagnosis:Pelvic floor dysfunction [M62.89] Other Visit Diagnosis:Urgency of urination [R39.15] Allergies As of Date: 01/14/2024 Noted Allergy Reaction MOLD 04/12/2005 RAGWEED 04/12/2005 Date Reviewed: 11/26/2023 Reviewed by: Machelle Weems APRN.CNM - Fully Assessed Prescriptions as of 01/14/2024 - sertraline (ZOLOFT) 25 mg tablet Take 1 tablet by mouth once daily. - promethazine (PHENERGAN) 12.5 mg tablet Take 1-2 tablets by mouth every 6 hours as needed for nausea/vomiting. - prental multivitamin 27 mg iron- 800 mcg tablet Take 1 tablet by mouth once daily. Mattress Filler: Therapy (PT/OT/Speech/Resp) ID: [id number] 01/14/2024 12:30 PM Author: BRANDT KOHLER Signed by BRANDT KOHLER PT on 01/14/2024 at 12:30 PM Document text: Program_ID:[id number] Access Code: [email or web address] URL: [email or web address] Date: 01-14-2024 Prepared By: Bri Miles Program Notes Exercises - Supine Diaphragmatic Breathing - 10 x daily - 7 x weekly - 1 sets - 5-10 reps - Seated Pelvic Floor Contraction - 1 x daily - 7 x weekly - 1 sets - 5-10 reps - Seated Pelvic Floor Contraction - 1 x daily - 7 x weekly - 3 sets - 10 reps - Seated Pelvic Floor Lengthening - 1 x daily - 7 x weekly - 1 sets - 5 reps - Beginner Front Arm Support - 1 x daily - 7 x weekly - 3 sets - 10 reps - Quadruped on Forearms Hip Extension - 1 x daily - 4 x weekly - 2 sets - 10 reps - Bridge with Hip Abduction and Resistance - 1 x daily - 4 x weekly - 1-2 sets - 10 reps - Supine Active Straight Leg Raise - 1 x daily - 4 x weekly - 1-2 sets - 10 reps Patient Education - cc Pelvic Floor - Diaphragmatic Breathing - cc Pelvic Floor - Lengthening - Get To Know Your Pelvic Floor- Female - Urinary Urge Control Techniques - Bladder Retraining - cc Pelvic Floor - Bladder Ernesto - Irritants - cc Pelvic Floor - Bladder Emptying Ideas ----- Normal [facility] THERAPY NTon 01-14-2024 THERAPY NT HNO ID: [id number] Author: BRANDT KOHLER PT Service: ? Author Type: Physical Therapist Type: Therapy (PT/OT/Speech/Resp) Filed: 01/14/2024 12:30 Note Text: Program_ID:[id number] Access Code: [email or web address] URL: [email or web address] Date: 01-14-2024 Prepared By: Bri Miles Program Notes Exercises - Supine Diaphragmatic Breathing - 10 x daily - 7 x weekly - 1 sets - 5-10 reps - Seated Pelvic Floor Contraction - 1 x daily - 7 x weekly - 1 sets - 5-10 reps - Seated Pelvic Floor Contraction - 1 x daily - 7 x weekly - 3 sets - 10 reps - Seated Pelvic Floor Lengthening - 1 x daily - 7 x weekly - 1 sets - 5 reps - Beginner Front Arm Support - 1 x daily - 7 x weekly - 3 sets - 10 reps - Quadruped on Forearms Hip Extension - 1 x daily - 4 x weekly - 2 sets - 10 reps - Bridge with Hip Abduction and Resistance - 1 x daily - 4 x weekly - 1-2 sets - 10 reps - Supine Active Straight Leg Raise - 1 x daily - 4 x weekly - 1-2 sets - 10 reps Patient Education - cc Pelvic Floor - Diaphragmatic Breathing - cc Pelvic Floor - Lengthening - Get To Know Your Pelvic Floor- Female - Urinary Urge Control Techniques - Bladder Retraining - cc Pelvic Floor - Bladder Ernesto - Irritants - cc Pelvic Floor - Bladder Emptying Ideas Normal [facility] CNTHERAPYon 12-31-2023 CNTHERAPY OT/PT/Speech Visit (AKPTB) MELANY MACE ([id number]) 1995 [facility] Date Time Provider Department 12/31/23 10:15 AM BRANDT KOHLER Date Time Provider Department Center 12/31/2023 10:15 AM [id number] KOHLER [facility] Reason for Visit: Physical Therapy [503] Primary Visit Diagnosis:Pelvic floor dysfunction [M62.89] Other Visit Diagnosis:Urgency of urination [R39.15] Allergies As of Date: 12/31/2023 Noted Allergy Reaction MOLD 04/12/2005 RAGWEED 04/12/2005 Date Reviewed: 11/26/2023 Reviewed by: Machelle Weems APRN.CNM - Fully Assessed Prescriptions as of 12/31/2023 - sertraline (ZOLOFT) 25 mg tablet Take 1 tablet by mouth once daily. - promethazine (PHENERGAN) 12.5 mg tablet Take 1-2 tablets by mouth every 6 hours as needed for nausea/vomiting. - prental multivitamin 27 mg iron- 800 mcg tablet Take 1 tablet by mouth once daily. Mattress Filler: Therapy (PT/OT/Speech/Resp) ID: [id number] 12/31/2023 10:54 AM Author: BRANDT KOHLER Signed by BRANDT KOHLER PT on 12/31/2023 at 10:54 AM Document text: Program_ID:[id number] Access Code: [email or web address] URL: [email or web address] Date: 12-31-2023 Prepared By: Bri Miles Program Notes Exercises - Supine Diaphragmatic Breathing - 10 x daily - 7 x weekly - 1 sets - 5-10 reps - Seated Pelvic Floor Contraction - 1 x daily - 7 x weekly - 1 sets - 5-10 reps - Seated Pelvic Floor Contraction - 1 x daily - 7 x weekly - 3 sets - 10 reps - Seated Pelvic Floor Lengthening - 1 x daily - 7 x weekly - 1 sets - 5 reps - Prone Alternating Arm and Leg Lifts - 1 x daily - 4 x weekly - 1 sets - 12 reps - Supine Heel Slide - 1 x daily - 4 x weekly - 1 sets - 8 reps - Supine March - 1 x daily - 4 x weekly - 1 sets - 6 reps - Supine Bridge - 1 x daily - 4 x weekly - 2 sets - 10 reps Patient Education - cc Pelvic Floor - Diaphragmatic Breathing - cc Pelvic Floor - Lengthening - Get To Know Your Pelvic Floor- Female - Urinary Urge Control Techniques - Bladder Retraining - cc Pelvic Floor - Bladder Ernesto - Irritants - cc Pelvic Floor - Bladder Emptying Ideas ----- [facility] THERAPY NTon 12-31-2023 THERAPY NT HNO ID: [id number] Author: BRANDT KOHLER PT Service: ? Author Type: Physical Therapist Type: Therapy (PT/OT/Speech/Resp) Filed: 12/31/2023 10:54 Note Text: Program_ID:[id number] Access Code: [email or web address] URL: [email or web address] Date: 12-31-2023 Prepared By: Bri Miles Program Notes Exercises - Supine Diaphragmatic Breathing - 10 x daily - 7 x weekly - 1 sets - 5-10 reps - Seated Pelvic Floor Contraction - 1 x daily - 7 x weekly - 1 sets - 5-10 reps - Seated Pelvic Floor Contraction - 1 x daily - 7 x weekly - 3 sets - 10 reps - Seated Pelvic Floor Lengthening - 1 x daily - 7 x weekly - 1 sets - 5 reps - Prone Alternating Arm and Leg Lifts - 1 x daily - 4 x weekly - 1 sets - 12 reps - Supine Heel Slide - 1 x daily - 4 x weekly - 1 sets - 8 reps - Supine March - 1 x daily - 4 x weekly - 1 sets - 6 reps - Supine Bridge - 1 x daily - 4 x weekly - 2 sets - 10 reps Patient Education - cc Pelvic Floor - Diaphragmatic Breathing - cc Pelvic Floor - Lengthening - Get To Know Your Pelvic Floor- Female - Urinary Urge Control Techniques - Bladder Retraining - cc Pelvic Floor - Bladder Ernesto - Irritants - cc Pelvic Floor - Bladder Emptying Ideas [facility] CNTHERAPYon 12-19-2023 CNTHERAPY OT/PT/Speech Visit (AKPTB) MELANY MACE ([id number]) 1995 [facility] Date Time Provider Department 12/19/23 9:00 AM BRANDT KOHLER Date Time Provider Department Center 12/19/2023 9:00 AM [id number] KOHLER [facility] Reason for Visit: Physical Therapy [503] Primary Visit Diagnosis:Pelvic floor dysfunction [M62.89] Other Visit Diagnosis:Urgency of urination [R39.15] Allergies As of Date: 12/19/2023 Noted Allergy Reaction MOLD 04/12/2005 RAGWEED 04/12/2005 Date Reviewed: 11/26/2023 Reviewed by: Machelle Weems APRN.CNM - Fully Assessed Prescriptions as of 12/19/2023 - sertraline (ZOLOFT) 25 mg tablet Take 1 tablet by mouth once daily. - promethazine (PHENERGAN) 12.5 mg tablet Take 1-2 tablets by mouth every 6 hours as needed for nausea/vomiting. - prental multivitamin 27 mg iron- 800 mcg tablet Take 1 tablet by mouth once daily. Mattress Filler: Therapy (PT/OT/Speech/Resp) ID: [id number] 12/19/2023 9:57 AM Author: BARNDT KOHLER Signed by BRANDT KOHLER PT on 12/19/2023 at 9:57 AM Document text: Program_ID:[id number] Access Code: [email or web address] URL: [email or web address] Date: 12-19-2023 Prepared By: Bri Miles Program Notes Exercises - Supine Diaphragmatic Breathing - 10 x daily - 7 x weekly - 1 sets - 5-10 reps - Seated Pelvic Floor Lengthening - 1 x daily - 7 x weekly - 1 sets - 5 reps - Prone Alternating Arm and Leg Lifts - 1 x daily - 4 x weekly - 1 sets - 12 reps - Supine Heel Slide - 1 x daily - 4 x weekly - 1 sets - 8 reps - Supine March - 1 x daily - 4 x weekly - 1 sets - 6 reps - Supine Bridge - 1 x daily - 4 x weekly - 2 sets - 10 reps Patient Education - cc Pelvic Floor - Diaphragmatic Breathing - cc Pelvic Floor - Lengthening - Get To Know Your Pelvic Floor- Female - Urinary Urge Control Techniques - Bladder Retraining - cc Pelvic Floor - Bladder Ernesto - Irritants - cc Pelvic Floor - Bladder Emptying Ideas ----- [facility] THERAPY NTon 12-19-2023 THERAPY NT HNO ID: [id number] Author: BRANDT KOHLER PT Service: ? Author Type: Physical Therapist Type: Therapy (PT/OT/Speech/Resp) Filed: 12/19/2023 09:57 Note Text: Program_ID:[id number] Access Code: [email or web address] URL: [email or web address] Date: 12-19-2023 Prepared By: Bri Miles Program Notes Exercises - Supine Diaphragmatic Breathing - 10 x daily - 7 x weekly - 1 sets - 5-10 reps - Seated Pelvic Floor Lengthening - 1 x daily - 7 x weekly - 1 sets - 5 reps - Prone Alternating Arm and Leg Lifts - 1 x daily - 4 x weekly - 1 sets - 12 reps - Supine Heel Slide - 1 x daily - 4 x weekly - 1 sets - 8 reps - Supine March - 1 x daily - 4 x weekly - 1 sets - 6 reps - Supine Bridge - 1 x daily - 4 x weekly - 2 sets - 10 reps Patient Education - cc Pelvic Floor - Diaphragmatic Breathing - cc Pelvic Floor - Lengthening - Get To Know Your Pelvic Floor- Female - Urinary Urge Control Techniques - Bladder Retraining - cc Pelvic Floor - Bladder Ernesto - Irritants - cc Pelvic Floor - Bladder Emptying Ideas [facility] CNTHERAPYon 12-04-2023 CNTHERAPY OT/PT/Speech Visit (AKPTB) MELANY MACE ([id number]) 1995 [facility] Date Time Provider Department 12/04/23 5:15 PM BRI MILES Date Time Provider Department [employer] 12/04/2023 5:15 PM [id number] MILES [facility] Reason for Visit: PT Eval [747] Primary Visit Diagnosis:Pelvic floor dysfunction [M62.89] Other Visit Diagnosis:Urgency of urination [R39.15] Allergies As of Date: 12/04/2023 Noted Allergy Reaction MOLD 04/12/2005 RAGWEED 04/12/2005 Date Reviewed: 11/26/2023 Reviewed by: Machelle Weems APRN.CN - Fully Assessed Prescriptions as of 12/04/2023 - sertraline (ZOLOFT) 25 mg tablet Take 1 tablet by mouth once daily. - promethazine (PHENERGAN) 12.5 mg tablet Take 1-2 tablets by mouth every 6 hours as needed for nausea/vomiting. - prental multivitamin 27 mg iron- 800 mcg tablet Take 1 tablet by mouth once daily. Mattress Filler: Therapy (PT/OT/Speech/Resp) ID: [id number] 12/04/2023 5:59 PM Author: BRI MILES Signed by BRI MILES PT on 12/04/2023 at 5:59 PM Document text: Program_ID:[id number] Access Code: [email or web address] URL: [email or web address] Date: 12-04-2023 Prepared By: Bri Miles Program Notes Exercises - Supine Diaphragmatic Breathing - 10 x daily - 7 x weekly - 1 sets - 5-10 reps - Seated Pelvic Floor Lengthening - 1 x daily - 7 x weekly - 1 sets - 5 reps Patient Education - cc Pelvic Floor - Diaphragmatic Breathing - cc Pelvic Floor - Lengthening - Get To Know Your Pelvic Floor- Female - Urinary Urge Control Techniques - Bladder Retraining - cc Pelvic Floor - Bladder Ernesto - Irritants - cc Pelvic Floor - Bladder Emptying Ideas ----- Letter Text [facility] THERAPY NTon 12-04-2023 THERAPY NT HNO ID: [id number] Author: BRI MILES, STAR Service: ? Author Type: Physical Therapist Type: Therapy (PT/OT/Speech/Resp) Filed: 12/04/2023 17:59 Note Text: Program_ID:[id number] Access Code: [email or web address] URL: [email or web address] Date: 12-04-2023 Prepared By: Bri Miles Program Notes Exercises - Supine Diaphragmatic Breathing - 10 x daily - 7 x weekly - 1 sets - 5-10 reps - Seated Pelvic Floor Lengthening - 1 x daily - 7 x weekly - 1 sets - 5 reps Patient Education - cc Pelvic Floor - Diaphragmatic Breathing - cc Pelvic Floor - Lengthening - Get To Know Your Pelvic Floor- Female - Urinary Urge Control Techniques - Bladder Retraining - cc Pelvic Floor - Bladder Ernesto - Irritants - cc Pelvic Floor - Bladder Emptying Ideas [facility] UA DIP, URINE (POC)on 2023 BILIRUBIN UA (POCT) Negative Negative [facility] CLARITY UA (POCT) Clear [facility] COLOR UA (POCT) Yellow [facility] GLUCOSE UA (POCT) Negative Negative mg/dL [facility] Hemoglobin Ql (U) Negative Negative [facility] KETONE UA (POCT) Negative Negative mg/dL [facility] LEUKOCYTES UA (POCT) Negative Negative [facility] NITRITE UA (POCT) Negative Negative [facility] PH UA (POCT) 6.5 4.5 - 8.0 [facility] Protein Ql (U) Trace Abnormal Negative mg/dL [facility] SPECIFIC GRAVITY UA (POCT) 1.025 1.005 - 1.030 [facility] UROBILINOGEN UA (POCT) 0.2 E.U./dL Normal E.U./ dL [facility] Basophil percentageOrdered B y: Yousif Hagan on 07-19-2023 Bilirubin [Mass/Vol] 0.30 mg/dL 0.20-1.00 [facility] Comment on above: For patients on eltr ombopag therapy, use of Dimension [place] TBIL is not recommended. Chloride [Moles/Vol] 107 mmol/L 98-107 [facility] Glucose [Mass/Vol] 89 mg/dL 74-106 [facility] Potassium [Moles/Vol] 4.4 mmol/L 3.5-5.1 [facility] Protein [Mass/Vol] 7.5 g/dL 6.4-8.2 [facility] Sodium [Moles/Vol] 141 mmol/L 136-145 [facility] Laboratory - Chemistry and C hemistry - challengeOrdered By: Yousif Hagan on 07-19-2023 ALP [Catalytic activity/Vol] 90 U/L 45-117 [facility] ALT [Catalytic activity/Vol] 33 U/L 13-56 [facility] CO2 [Moles/Vol] 29.0 mmol/L 21.0-32.0 [facility] Globulin (S) [Mass/Vol] 3.7 g/dL 2.2-4.2 [facility] Urea nitrogen/Creatinine [Mass ratio] 26.5 mg/mg 10-20 [facility] No Panel InformationOrdered By: Yousif Hagan on 07-19-2023 Estimated GFR (MDRD) Amer 154 mL/min >60 [facility] Comment on above: GFR Calc Estimated GFR (MDRD) Non-Af Amer 127 mL/min >60 [facility] Comment on above: Non- GFR Calc Serum or plasma albumin sanju urement (mass/volume)Ordered By: Yousif Hagan on 07-19-2023 Albumin [Mass/Vol] 3.8 g/dL 3.2-5.0 [facility] Serum or plasma albumin/glob ulin mass ratioOrdered By: Yousif Hagan on 07-19-2023 Albumin/Globulin [Mass ratio] 1.0 {ratio} 0.9-2.4 [facility] Serum or plasma calcium sanju urement (mass/volume)Ordered By: Yousif Hagan on 07-19-2023 Calcium [Mass/Vol] 9.2 mg/dL 8.5-10.1 [facility] Serum or plasma creatinine m easurement (mass/volume)Ordered By: Yousif Hagan on 07-19-2023 Creatinine [Mass/Vol] 0.60 mg/dL 0.55-1.02 [facility] Comment on above: The validity of the calculated GFR & GFRAA in patients over 70 years has not been determined. Clinical correlation is essential. Serum or plasma urea nitroge n measurement (mass/volume)Ordered By: Yousif Hagan on 07-19-2023 Urea nitrogen [Mass/Vol] 16 mg/dL 7-18 [facility] Thin prep Papanicolaou smear with manual screeningOrdered By: Yousif Hagan on 07-19-2023 Thin prep Papanicolaou smear with manual screening 17 U/L 15-37 [facility] Thin prep Papanicolaou smear with manual screening 5 5-15 [facility] Absolute lymphocyte countOrd ered By: HEALTH ASSESSMENT on 04-19-2023 Lymphocytes Auto (Unsp spec) [#/Vol] 2.59 10*3/uL 0.83-4.51 [facility] Absolute reticulocyte countO rdered By: HEALTH ASSESSMENT on 04-19-2023 Reticulocytes (Bld) [#/Vol] 0.00 10*3/uL 0-5 [facility] Basophil percentageOrdered B y: HEALTH ASSESSMENT on 04-19-2023 Basophil percentage 3.6 mg/dL 2.5-4.9 [facility] Bilirubin [Mass/Vol] 0.40 mg/dL 0.20-1.00 [facility] Comment on above: For patients on eltr ombopag therapy, use of Dimension [place] TBIL is not recommended. Chloride [Moles/Vol] 110 mmol/L 98-107 [facility] Cholesterol [Mass/Vol] 141 mg/dL <200 [facility] Comment on above: <200 mg/dL Desirable 200-240 mg/dL Borderline >240 mg/dL High Risk Glucose [Mass/Vol] 82 mg/dL 74-106 [facility] LDH [Catalytic activity/Vol] 174 U/L 84-246 [facility] Neutrophils (Bld) [#/Vol] 3.0 10*3/uL 2.0-7.7 [facility] Potassium [Moles/Vol] 4.1 mmol/L 3.5-5.1 [facility] Protein [Mass/Vol] 7.0 g/dL 6.4-8.2 [facility] Sodium [Moles/Vol] 143 mmol/L 136-145 [facility] Triglyceride [Mass/Vol] 38 mg/dL <199 [facility] Comment on above: The drugs N-Acetylcy steine and Metamizole may falsely depress this assay.Serum Triglycerides Reference Interval Normal <150 mg/dL Borderline high 150 - 199 mg/dL High 200 - 499 mg/dL Very High > or = 500 mg/dL WBC (Bld) [#/Vol] 7.0 10*3/uL 4.4-11.0 [facility] Blood erythrocytes count (nu mber/volume)Ordered By: HEALTH ASSESSMENT on 04-19-2023 RBC (Bld) [#/Vol] 4.51 10*6/uL 4.2-5.4 [facility] Blood hemoglobin measurement (mass/volume)Ordered By: HEALTH ASSESSMENT on 04-19-2023 Hemoglobin (Bld) [Mass/Vol] 13.6 g/dL 12.0-15.0 [facility] Blood leukocytes count corre cted for nucleated erythrocytes (number/volume)Ordered By: HEALTH ASSESSMENT on 04-19-2023 WBC corrected for nucl RBC (Bld) [#/Vol] WEBMETHODS ARCHITECT [facility] Blood platelet mean volumeOr dered By: HEALTH ASSESSMENT on 04-19-2023 Platelet mean volume (Bld) [Entitic vol] 9.4 fL 6.2-12.0 [facility] Determination of erythrocyte mean corpuscular volume (MCV)Ordered By: HEALTH ASSESSMENT on 04-19-2023 MCV (RBC) [Entitic vol] 94.5 fL 81-99 [facility] Direct bilirubinOrdered By: HEALTH ASSESSMENT on 04-19-2023 Bilirubin.direct [Mass/Vol] 0.12 mg/dL 0.00-0.30 [facility] Hematocrit Auto (Bld) [Volum e fraction]Ordered By: HEALTH ASSESSMENT on 04-19-2023 Hematocrit (Bld) [Volume fraction] 42.6 % 37-47 [facility] Laboratory - Chemistry and C hemistry - challengeOrdered By: HEALTH ASSESSMENT on 04-19-2023 ALP [Catalytic activity/Vol] 109 U/L 45-117 [facility] ALT [Catalytic activity/Vol] 114 U/L 13-56 [facility] Cholesterol.total/Chol esterol in HDL [Mass ratio] 1.50 {ratio} [facility] CO2 [Moles/Vol] 28.0 mmol/L 21.0-32.0 [facility] Globulin (S) [Mass/Vol] 3.4 g/dL 2.2-4.2 [facility] Urea nitrogen/Creatinine [Mass ratio] 17.9 mg/mg 10-20 [facility] Laboratory - Hematology and Cell countsOrdered By: HEALTH ASSESSMENT on 04-19-2023 Erythrocyte distribution width (RBC) [Entitic vol] 41.1 fL 35.1-43.9 [facility] Erythrocyte distribution width (RBC) [Ratio] 11.8 % 11.6-14.6 [facility] MCH (RBC) [Entitic mass] 30.2 pg 27.0-32.0 [facility] Nucleated RBC/100 WBC (Bld) [Ratio] 0 % 0-5 [facility] MCHC Auto (RBC) [Mass/Vol]Or dered By: HEALTH ASSESSMENT on 04-19-2023 MCHC (RBC) [Mass/Vol] 31.9 g/dL 32-36 [facility] No Panel InformationOrdered By: HEALTH ASSESSMENT on 04-19-2023 Estimated Creatinine Clearance Calc WEBMETHODS ARCHITECT [facility] Estimated GFR (MDRD) Amer 136 mL/min >60 [facility] Comment on above: GFR Calc Estimated GFR (MDRD) Non-Af Amer 113 mL/min >60 [facility] Comment on above: Non- GFR Calc Immature Granulocyte % (Auto) WEBMETHODS ARCHITECT [facility] Platelets bldOrdered By: EZEKIEL LT ASSESSMENT on 04-19-2023 Platelets (Bld) [#/Vol] 256 10*3/uL 150-450 [facility] Review by pathologistOrdered By: HEALTH ASSESSMENT on 04-19-2023 Pathologist review Lei (Unsp spec) [Interp] WEBM[employer]S ARCHITECT [facility] Segmented neutrophils/100 WB C Auto (Bld)Ordered By: HEALTH ASSESSMENT on 04-19-2023 Segmented neutrophils/100 WBC (Bld) 43.1 % 47-70 [facility] Serum or plasma albumin sanju urement (mass/volume)Ordered By: HEALTH ASSESSMENT on 04-19-2023 Albumin [Mass/Vol] 3.6 g/dL 3.2-5.0 [facility] Serum or plasma albumin/glob ulin mass ratioOrdered By: HEALTH ASSESSMENT on 04-19-2023 Albumin/Globulin [Mass ratio] 1.1 {ratio} 0.9-2.4 [facility] Serum or plasma calcium sanju urement (mass/volume)Ordered By: HEALTH ASSESSMENT on 04-19-2023 Calcium [Mass/Vol] 8.7 mg/dL 8.5-10.1 [facility] Serum or plasma cholesterol in HDL measurement (mass/volume)Ordered By: HEALTH ASSESSMENT on 04-19-2023 Cholesterol in HDL [Mass/Vol] 92 mg/dL >40 [facility] Comment on above: The drugs N-Acetylcy steine and Metamizole may falsely depress this assay. Reference Range HDL <40 mg/dL Low HDL Cholesterol HDL >or= 60 mg/dL High HDL Cholesterol Serum or plasma cholesterol in VLDL measurement (mass/volume)Ordered By: HEALTH ASSESSMENT on 04-19-2023 Cholesterol in VLDL [Mass/Vol] 8 mg/dL 5-40 [facility] Serum or plasma creatinine m easurement (mass/volume)Ordered By: HEALTH ASSESSMENT on 04-19-2023 Creatinine [Mass/Vol] 0.67 mg/dL 0.55-1.02 [facility] Comment on above: The validity of the calculated GFR & GFRAA in patients over 70 years has not been determined. Clinical correlation is essential. Serum or plasma low density lipoprotein (LDL) cholesterol measurement (mass/volume)Ordered By: HEALTH ASSESSMENT on 04-19-2023 Cholesterol in LDL [Mass/Vol] 41 mg/dL 0-130 [facility] Serum or plasma urea nitroge n measurement (mass/volume)Ordered By: HEALTH ASSESSMENT on 04-19-2023 Urea nitrogen [Mass/Vol] 12 mg/dL 7-18 [facility] Serum or plasma uric acid me asurement (mass/volume)Ordered By: [facility] ASS[facility] on 04-19-2023 Urate [Mass/Vol] 5.2 mg/dL 2.6-6.0 [facility] Comment on above: The drugs N-Acetylcy steine and Metamizole may falsely depress this assay. Thin prep Papanicolaou smear with manual screeningOrdered By: HEALTH ASSESSMENT on 04-19-2023 Thin prep Papanicolaou smear with manual screening 58 U/L 15-37 [facility] Thin prep Papanicolaou smear with manual screening 5 5-15 [facility] Absolute lymphocyte countOrd ered By: Machelle Weems on 02-28-2023 Lymphocytes Auto (Unsp spec) [#/Vol] 2.92 10*3/uL 0.83-4.51 [facility] Basophil percentageOrdered B y: Machelle Weems on 02-28-2023 Basophils/100 WBC (Bld) 0.2 % 0-1 [facility] Eosinophils/100 WBC (Bld) 2.1 % 0-5 [facility] Neutrophils (Bld) [#/Vol] 8.9 10*3/uL 2.0-7.7 [facility] Neutrophils/100 WBC (Bld) 70.0 % 47-70 [facility] WBC (Bld) [#/Vol] 12.8 10*3/uL 4.4-11.0 [facility] Blood erythrocytes count (nu mber/volume)Ordered By: Machelle Weems on 02-28-2023 RBC (Bld) [#/Vol] 4.00 10*6/uL 4.2-5.4 [facility] Blood hemoglobin measurement (mass/volume)Ordered By: Machelle Weems on 02-28-2023 Hemoglobin (Bld) [Mass/Vol] 12.8 g/dL 12.0-15.0 [facility] Blood lymphocytes/100 leukoc ytesOrdered By: Machelle Weems on 02-28-2023 Lymphocytes/100 WBC (Bld) 22.9 % 19-41 [facility] Blood monocytes/100 leukocyt esOrdered By: Machelle Weems on 02-28-2023 Monocytes/100 WBC (Bld) 4.3 % 0-10 [facility] Blood platelet mean volumeOr dered By: Machelle Weems on 02-28-2023 Platelet mean volume (Bld) [Entitic vol] 9.7 fL 6.2-12.0 [facility] Determination of erythrocyte mean corpuscular volume (MCV)Ordered By: Machelle Weems on 02-28-2023 MCV (RBC) [Entitic vol] 96.3 fL 81-99 [facility] Hematocrit Auto (Bld) [Volum e fraction]Ordered By: Machelle Weems on 02-28-2023 Hematocrit (Bld) [Volume fraction] 38.5 % 37-47 [facility] - Hematology and Cell countsOrdered By: Machelle Weems on 02-28-2023 Erythrocyte distribution width (RBC) [Entitic vol] 46.7 fL 35.1-43.9 [facility] Erythrocyte distribution width (RBC) [Ratio] 13.2 % 11.6-14.6 [facility] Immature granulocytes/100 WBC (Bld) 0.500 % 0.0-0.9 [facility] Comment on above: IG% - Immature Granu locytes (promyelocytes, myelocytes and metamyelocytes) > 1% indicates that a LEFT SHIFT is Present. MCH (RBC) [Entitic mass] 32.0 pg 27.0-32.0 [facility] Nucleated RBC/100 WBC (Bld) [Ratio] 0 % 0-5 [facility] MCHC Auto (RBC) [Mass/Vol]Or dered By: Machelle Weems on 02-28-2023 MCHC (RBC) [Mass/Vol] 33.2 g/dL 32-36 [facility] Platelets bldOrdered By: Eleonora Weems on 02-28-2023 Platelets (Bld) [#/Vol] 242 10*3/uL 150-450 [facility] Serum Treponema species anti body detectionOrdered By: Machelle Weems on 02-28-2023 Treponema sp Ab Ql (S) Non-Reactive [facility] URINE OB DIP B/Oon 3 Glucose Ql (U) Negative Neg mg/dL [facility] Protein.monoclonal (U) [Mass/Vol] Negative Neg mg/dL [facility] URINE OB DIP B/Oon 3 Glucose Ql (U) Negative Neg mg/dL [facility] Protein.monoclonal (U) [Mass/Vol] Negative Neg mg/dL [facility] URINE OB DIP B/Oon 3 Glucose Ql (U) Negative Neg mg/dL [facility] Protein.monoclonal (U) [Mass/Vol] Negative Neg mg/dL [facility] No Panel InformationOrdered By: Sofy Bradshaw on 02-09-2023 Vaginal Amniotic Fluid Detection Negative Negative [facility] Comment on above: Amniotic fluid not p resent indicates No Rupture of FetalMembranes at time of specimen collection. URINE OB DIP B/Oon 3 Glucose Ql (U) Negative Neg mg/dL [facility] Protein.monoclonal (U) [Mass/Vol] Negative Neg mg/dL [facility] URINE OB DIP B/Oon 3 Glucose Ql (U) Negative Neg mg/dL [facility] Protein.monoclonal (U) [Mass/Vol] Negative Neg mg/dL [facility] URINE OB DIP B/Oon 3 Glucose Ql (U) Negative Neg mg/dL [facility] Protein.monoclonal (U) [Mass/Vol] Negative Neg mg/dL [facility] Basophil percentageOrdered B y: Harirosenda Barbergabriela on 12-13-2022 Bilirubin [Mass/Vol] 0.20 mg/dL 0.20-1.00 [facility] Comment on above: For patients on eltr ombopag therapy, use of Dimension [place] TBIL is not recommended. Chloride [Moles/Vol] 106 mmol/L 98-107 [facility] Glucose [Mass/Vol] 101 mg/dL 74-106 [facility] Comment on above: Fasting Glucose resu lt from 100 to 125 mg/dL suggests IMPAIRED HOMEOSTASIS per A.D.A. criteria. Potassium [Moles/Vol] 3.9 mmol/L 3.5-5.1 [facility] Protein [Mass/Vol] 6.5 g/dL 6.4-8.2 [facility] Sodium [Moles/Vol] 139 mmol/L 136-145 [facility] Laboratory - Chemistry and C hemistry - challengeOrdered By: Yousif Hagan on 12-13-2022 ALP [Catalytic activity/Vol] 79 U/L 45-117 [facility] ALT [Catalytic activity/Vol] 20 U/L 13-56 [facility] CO2 [Moles/Vol] 24.0 mmol/L 21.0-32.0 [facility] Free T4 [Mass/Vol] 0.79 ng/dL 0.76-1.46 [facility] Globulin (S) [Mass/Vol] 3.8 g/dL 2.2-4.2 [facility] Urea nitrogen/Creatinine [Mass ratio] 17.5 mg/mg 10-20 [facility] No Panel InformationOrdered By: Yousif Hagan on 12-13-2022 Estimated GFR (MDRD) Amer 248 mL/min >60 [facility] Comment on above: GFR Calc Estimated GFR (MDRD) Non-Af Amer 205 mL/min >60 [facility] Comment on above: Non- GFR Calc Thyroid Stimulating Hormone (TSH) 1.34 uIU/mL 0.358-3.74 [facility] Serum or plasma albumin sanju urement (mass/volume)Ordered By: Yousif Hagan on 12-13-2022 Albumin [Mass/Vol] 2.7 g/dL 3.2-5.0 [facility] Serum or plasma albumin/glob ulin mass ratioOrdered By: Yousif Hagan on 12-13-2022 Albumin/Globulin [Mass ratio] 0.7 {ratio} 0.9-2.4 [facility] Serum or plasma calcium sanju urement (mass/volume)Ordered By: Yousif Hagan on 12-13-2022 Calcium [Mass/Vol] 8.7 mg/dL 8.5-10.1 [facility] Serum or plasma creatinine m easurement (mass/volume)Ordered By: Yousif Hagan on 12-13-2022 Creatinine [Mass/Vol] 0.40 mg/dL 0.55-1.02 [facility] Comment on above: The validity of the calculated GFR & GFRAA in patients over 70 years has not been determined. Clinical correlation is essential. Serum or plasma urea nitroge n measurement (mass/volume)Ordered By: Yousif Hagan on 12-13-2022 Urea nitrogen [Mass/Vol] 7 mg/dL 7-18 [facility] Thin prep Papanicolaou smear with manual screeningOrdered By: owen Hagan on 12-13-2022 Thin prep Papanicolaou smear with manual screening 17 U/L 15-37 [facility] Thin prep Papanicolaou smear with manual screening 9 5-15 [facility] URINE OB DIP B/Oon 3 Glucose Ql (U) Negative Neg mg/dL [facility] Protein.monoclonal (U) [Mass/Vol] Negative Neg mg/dL [facility] Absolute lymphocyte countOrd ered By: Krissy Galvan on 11-30-2022 Lymphocytes Auto (Unsp spec) [#/Vol] 2.25 10*3/uL 0.83-4.51 [facility] Basophil percentageOrdered B y: Krissy Galvan on 11-30-2022 Basophils/100 WBC (Bld) 0.3 % 0-1 [facility] Eosinophils/100 WBC (Bld) 1.5 % 0-5 [facility] Neutrophils (Bld) [#/Vol] 6.1 10*3/uL 2.0-7.7 [facility] Neutrophils/100 WBC (Bld) 67.4 % 47-70 [facility] WBC (Bld) [#/Vol] 9.1 10*3/uL 4.4-11.0 [facility] Blood erythrocytes count (nu mber/volume)Ordered By: Krissy Galvan on 11-30-2022 RBC (Bld) [#/Vol] 3.83 10*6/uL 4.2-5.4 [facility] Blood hemoglobin measurement (mass/volume)Ordered By: Krissy Galvan on 11-30-2022 Hemoglobin (Bld) [Mass/Vol] 12.2 g/dL 12.0-15.0 [facility] Blood lymphocytes/100 leukoc ytesOrdered By: Krissy Galvan on 11-30-2022 Lymphocytes/100 WBC (Bld) 24.8 % 19-41 [facility] Blood monocytes/100 leukocyt esOrdered By: Krissy Galvan on 11-30-2022 Monocytes/100 WBC (Bld) 5.3 % 0-10 [facility] Blood platelet mean volumeOr dered By: Krissy Galvan on 11-30-2022 Platelet mean volume (Bld) [Entitic vol] 9.3 fL 6.2-12.0 [facility] Determination of erythrocyte mean corpuscular volume (MCV)Ordered By: Krissy Galvan on 11-30-2022 MCV (RBC) [Entitic vol] 99.2 fL 81-99 [facility] Gestational diabetes screen 1-hour screen with 50g oral glucose loadOrdered By: Krissy Galvan on 11-30-2022 Glucose 1 Hr post 50 g glucose PO [Mass/Vol] 83 mg/dL 70-140 [facility] Hematocrit Auto (Bld) [Volum e fraction]Ordered By: Krissy Galvan on 11-30-2022 Hematocrit (Bld) [Volume fraction] 38.0 % 37-47 [facility] Laboratory - Hematology and Cell countsOrdered By: Krissy Galvan on 11-30-2022 Erythrocyte distribution width (RBC) [Entitic vol] 49.6 fL 35.1-43.9 [facility] Erythrocyte distribution width (RBC) [Ratio] 13.6 % 11.6-14.6 [facility] Immature granulocytes/100 WBC (Bld) 0.700 % 0.0-0.9 [facility] Comment on above: IG% - Immature Granu locytes (promyelocytes, myelocytes and metamyelocytes) > 1% indicates that a LEFT SHIFT is Present. MCH (RBC) [Entitic mass] 31.9 pg 27.0-32.0 [facility] Nucleated RBC/100 WBC (Bld) [Ratio] 0 % 0-5 [facility] Auto (RBC) [Mass/Vol]Or dered By: Krissy Galvan on 11-30-2022 MCHC (RBC) [Mass/Vol] 32.1 g/dL 32-36 [facility] Platelets bldOrdered By: Makayla Galvan on 11-30-2022 Platelets (Bld) [#/Vol] 272 10*3/uL 150-450 [facility] URINE OB DIP B/Oon 3 Glucose Ql (U) Negative Neg mg/dL [facility] Protein.monoclonal (U) [Mass/Vol] Negative Neg mg/dL [facility] URINE OB DIP B/Oon 3 Glucose Ql (U) Negative Neg mg/dL [facility] Protein.monoclonal (U) [Mass/Vol] Negative Neg mg/dL [facility] UA DIP, URINE (POC)on 2022 BILIRUBIN UA (POCT) Negative Negative [facility] CLARITY UA (POCT) Clear [facility] COLOR UA (POCT) Yellow [facility] GLUCOSE UA (POCT) Negative Negative mg/dL [facility] HEMOGLOBIN/BLOOD UA (POCT) Small Abnormal Negative [facility] KETONE UA (POCT) Negative Negative mg/dL [facility] LEUKOCYTES UA (POCT) Negative Negative [facility] NITRITE UA (POCT) Negative Negative [facility] PH UA (POCT) 6.0 4.5 - 8.0 [facility] Protein Ql (U) Negative Negative mg/dL [facility] SPECIFIC GRAVITY UA (POCT) >=1.030 1.005 - 1.030 [facility] UROBILINOGEN UA (POCT) 0.2 E.U./dL Normal E.U./ dL [facility] URINE OB DIP B/Oon 3 Glucose Ql (U) Negative Neg mg/dL [facility] Protein.monoclonal (U) [Mass/Vol] Negative Neg mg/dL [facility] URINE OB DIP B/Oon 3 Glucose Ql (U) Negative Neg mg/dL [facility] Protein.monoclonal (U) [Mass/Vol] Negative Neg mg/dL [facility] [employer] WHIon [facility] Basophil percentageOrdered B y: Nacho Dumont on 08-08-2022 WBC (Bld) [#/Vol] 8.4 10*3/uL 4.4-11.0 [facility] Blood erythrocytes count (nu mber/volume)Ordered By: Nacho Knapp on 08-08-2022 RBC (Bld) [#/Vol] 4.59 10*6/uL 4.2-5.4 [facility] Blood hemoglobin measurement (mass/volume)Ordered By: Nacho Knapp on 08-08-2022 Hemoglobin (Bld) [Mass/Vol] 13.9 g/dL 12.0-15.0 [facility] Blood platelet mean volumeOr dered By: Nacho Dumont on 08-08-2022 Platelet mean volume (Bld) [Entitic vol] 9.6 fL 6.2-12.0 [facility] Determination of erythrocyte mean corpuscular volume (MCV)Ordered By: Nacho Dumont on 08-08-2022 MCV (RBC) [Entitic vol] 91.1 fL 81-99 [facility] HIV 1 and HIV-2 antibody ass ay with HIV-1 p24 antigen detectionOrdered By: Nacho Dumont on 08-08-2022 HIV 1+2 Ab+HIV1 p24 Ag IA Ql Non-Reactive Nonreactive [facility] Hematocrit Auto (Bld) [Volum e fraction]Ordered By: Nacho Dumont on 08-08-2022 Hematocrit (Bld) [Volume fraction] 41.8 % 37-47 [facility] - Hematology and Cell countsOrdered By: Nacho Dumont on 08-08-2022 Erythrocyte distribution width (RBC) [Entitic vol] 42.8 fL 35.1-43.9 [facility] Erythrocyte distribution width (RBC) [Ratio] 12.9 % 11.6-14.6 [facility] MCH (RBC) [Entitic mass] 30.3 pg 27.0-32.0 [facility] MCHC Auto (RBC) [Mass/Vol]Or dered By: Nacho Dumont on 08-08-2022 MCHC (RBC) [Mass/Vol] 33.3 g/dL 32-36 [facility] No Panel InformationOrdered By: Nacho Dumont on 08-08-2022 Hepatitis B Surface Antigen Non-Reactive Nonreactive [facility] Hepatitis C Antibody Non-Reactive Nonreactive [facility] Comment on above: Non Reactive: < 0.8 Equivocal: >/= 0.8 to < 1.0 Reactive: >/= 1.0The CDC recommends that a reactive/equivocal HCV antibody result be followed up by the HCV Nucleic Acid Amplificationtest (026215) Rubella IgG Antibody Reactive Nonreactive [facility] Comment on above: Antibody Results Int erpretation of Immune Status Non Reactive Presumed Non-Immune Equivocal Equivocal Reactive Presumed Immune Platelets bldOrdered By: Nacho Dumont on 08-08-2022 Platelets (Bld) [#/Vol] 347 10*3/uL 150-450 [facility] Serum Treponema species anti body detectionOrdered By: Nacho Knapp on 08-08-2022 Treponema sp Ab Ql (S) Non-Reactive [facility] No Panel Informationon 08-07 [facility] Serum or plasma choriogonado tropin detectionOrdered By: Nacho Knapp on 06-22-2022 HCG ( test) Ql 67 mIU/mL <4 [facility] Comment on above: hCG levels with Gest ational AgeGestational Age hCG mIU/mL (IU/L)0.2 - 1 week 5 - 501-2 weeks 50 - 5002-3 weeks 100 - 78201-0 weeks 500 - 935114-2 weeks 1000 - 979400-8 weeks 19182 - 100,0006-8 weeks 92689 - 200,0002-3 months 98220 - 100,000 Absolute lymphocyte countOrd ered By: HEALTH ASSESSMENT on 04-28-2022 Lymphocytes Auto (Unsp spec) [#/Vol] 2.92 10*3/uL 0.83-4.51 [facility] Absolute reticulocyte countO rdered By: HEALTH ASSESSMENT on 04-28-2022 Reticulocytes (Bld) [#/Vol] 0.00 10*3/uL 0-5 [facility] Basophil percentageOrdered B y: HEALTH ASSESSMENT on 04-28-2022 Basophil percentage 3.5 mg/dL 2.5-4.9 [facility] Bilirubin [Mass/Vol] 0.20 mg/dL 0.20-1.00 [facility] Comment on above: For patients on eltr ombopag therapy, use of Dimension [place] TBIL is not recommended. Chloride [Moles/Vol] 109 mmol/L 98-107 [facility] Cholesterol [Mass/Vol] 141 mg/dL <200 [facility] Comment on above: <200 mg/dL Desirable 200-240 mg/dL Borderline >240 mg/dL High Risk Glucose [Mass/Vol] 96 mg/dL 74-106 [facility] Neutrophils (Bld) [#/Vol] 3.7 10*3/uL 2.0-7.7 [facility] Potassium [Moles/Vol] 3.7 mmol/L 3.5-5.1 [facility] Protein [Mass/Vol] 7.7 g/dL 6.4-8.2 [facility] Sodium [Moles/Vol] 142 mmol/L 136-145 [facility] Triglyceride [Mass/Vol] 45 mg/dL <199 [facility] Comment on above: The drugs N-Acetylcy steine and Metamizole may falsely depress this assay.Serum Triglycerides Reference Interval Normal <150 mg/dL Borderline high 150 - 199 mg/dL High 200 - 499 mg/dL Very High > or = 500 mg/dL WBC (Bld) [#/Vol] 7.3 10*3/uL 4.4-11.0 [facility] Blood erythrocytes count (nu mber/volume)Ordered By: HEALTH ASSESSMENT on 04-28-2022 RBC (Bld) [#/Vol] 4.68 10*6/uL 4.2-5.4 [facility] Blood hemoglobin measurement (mass/volume)Ordered By: HEALTH ASSESSMENT on 04-28-2022 Hemoglobin (Bld) [Mass/Vol] 14.5 g/dL 12.0-15.0 [facility] Blood platelet mean volumeOr dered By: HEALTH ASSESSMENT on 04-28-2022 Platelet mean volume (Bld) [Entitic vol] 9.8 fL 6.2-12.0 [facility] Determination of erythrocyte mean corpuscular volume (MCV)Ordered By: HEALTH ASSESSMENT on 04-28-2022 MCV (RBC) [Entitic vol] 92.9 fL 81-99 [facility] Direct bilirubinOrdered By: HEALTH ASSESSMENT on 04-28-2022 Bilirubin.direct [Mass/Vol] 0.08 mg/dL 0.00-0.30 [facility] Hematocrit Auto (Bld) [Volum e fraction]Ordered By: HEALTH ASSESSMENT on 04-28-2022 Hematocrit (Bld) [Volume fraction] 43.5 % 37-47 [facility] - Chemistry and C hemistry - challengeOrdered By: Dr. Hagan on 04-28-2022 Free T4 [Mass/Vol] 0.92 ng/dL 0.76-1.46 [facility] - Chemistry and C hemistry - challengeOrdered By: HEALTH ASSESSMENT on 04-28-2022 ALP [Catalytic activity/Vol] 69 U/L 45-117 [facility] ALT [Catalytic activity/Vol] 24 U/L 13-56 [facility] Cholesterol.total/Chol esterol in HDL [Mass ratio] 1.60 {ratio} [facility] CO2 [Moles/Vol] 28.0 mmol/L 21.0-32.0 [facility] Globulin (S) [Mass/Vol] 3.8 g/dL 2.2-4.2 [facility] Urea nitrogen/Creatinine [Mass ratio] 20.3 mg/mg 10-20 [facility] - Hematology and Cell countsOrdered By: HEALTH ASSESSMENT on 04-28-2022 Erythrocyte distribution width (RBC) [Entitic vol] 43.2 fL 35.1-43.9 [facility] Erythrocyte distribution width (RBC) [Ratio] 12.6 % 11.6-14.6 [facility] MCH (RBC) [Entitic mass] 31.0 pg 27.0-32.0 [facility] Nucleated RBC/100 WBC (Bld) [Ratio] 0 % 0-5 [facility] MCHC Auto (RBC) [Mass/Vol]Or dered By: HEALTH ASSESSMENT on 04-28-2022 MCHC (RBC) [Mass/Vol] 33.3 g/dL 32-36 [facility] No Panel InformationOrdered By: Dr. Hagan on 04-28-2022 Thyroid Stimulating Hormone (TSH) 1.69 uIU/mL 0.358-3.74 [facility] No Panel InformationOrdered By: HEALTH ASSESSMENT on 04-28-2022 Estimated GFR (MDRD) Amer 145 mL/min >60 [facility] Comment on above: GFR Calc Estimated GFR (MDRD) Non-Af Amer 120 mL/min >60 [facility] Comment on above: Non- GFR Calc Platelets bldOrdered By: Angel [facility] ASSESSMENT on 04-28-2022 Platelets (Bld) [#/Vol] 318 10*3/uL 150-450 [facility] Segmented neutrophils/100 WB C Auto (Bld)Ordered By: HEALTH ASSESSMENT on 04-28-2022 Segmented neutrophils/100 WBC (Bld) 50.9 % 47-70 [facility] Serum or plasma albumin sanju urement (mass/volume)Ordered By: HEALTH ASSESSMENT on 04-28-2022 Albumin [Mass/Vol] 3.9 g/dL 3.2-5.0 [facility] Serum or plasma albumin/glob ulin mass ratioOrdered By: HEALTH ASSESSMENT on 04-28-2022 Albumin/Globulin [Mass ratio] 1.0 {ratio} 0.9-2.4 [facility] Serum or plasma calcium sanju urement (mass/volume)Ordered By: HEALTH ASSESSMENT on 04-28-2022 Calcium [Mass/Vol] 8.8 mg/dL 8.5-10.1 [facility] Serum or plasma cholesterol in HDL measurement (mass/volume)Ordered By: HEALTH ASSESSMENT on 04-28-2022 Cholesterol in HDL [Mass/Vol] 90 mg/dL >40 [facility] Comment on above: The drugs N-Acetylcy steine and Metamizole may falsely depress this assay. Reference Range HDL <40 mg/dL Low HDL Cholesterol HDL >or= 60 mg/dL High HDL Cholesterol Serum or plasma cholesterol in VLDL measurement (mass/volume)Ordered By: HEALTH ASSESSMENT on 04-28-2022 Cholesterol in VLDL [Mass/Vol] 9 mg/dL 5-40 [facility] Serum or plasma creatinine m easurement (mass/volume)Ordered By: HEALTH ASSESSMENT on 04-28-2022 Creatinine [Mass/Vol] 0.64 mg/dL 0.55-1.02 [facility] Comment on above: The validity of the calculated GFR & GFRAA in patients over 70 years has not been determined. Clinical correlation is essential. Serum or plasma low density lipoprotein (LDL) cholesterol measurement (mass/volume)Ordered By: HEALTH ASSESSMENT on 04-28-2022 Cholesterol in LDL [Mass/Vol] 42 mg/dL 0-130 [facility] Serum or plasma urea nitroge n measurement (mass/volume)Ordered By: HEALTH ASSESSMENT on 04-28-2022 Urea nitrogen [Mass/Vol] 13 mg/dL 7-18 [facility] Serum or plasma uric acid me asurement (mass/volume)Ordered By: HEALTH ASSESSMENT on 04-28-2022 Urate [Mass/Vol] 3.9 mg/dL 2.6-6.0 [facility] Comment on above: The drugs N-Acetylcy steine and Metamizole may falsely depress this assay. Thin prep Papanicolaou smear with manual screeningOrdered By: HEALTH ASSESSMENT on 04-28-2022 Thin prep Papanicolaou smear with manual screening 20 U/L 15-37 [facility] Thin prep Papanicolaou smear with manual screening 5 5-15 [facility] Thin prep Papanicolaou smear with manual screening 197 U/L 84-246 [facility] MEASLES,MUMP,RUBELLAon 01-28 MUMPS ABS, IGG 92.2 AU/mL Normal Immune >10.9 [facility] Comment on above: Result Comment: (NOT E) Negative <9.0 Equivocal 9.0 - 10.9 Positive >10.9A positive result generally indicates past exposure toMumps virus or previous vaccination.PERFORMED AT [facility] Performed By: #### L MMR ####Testing performed at [facility], [id number] [place] [address] RUBEOLA AB, IGG 57.6 AU/mL Normal Immune >29.9 [facility] Comment on above: Result Comment: (NOT E) Negative <25.0 Equivocal 25.0 - 29.9 Positive >29.9Presence of antibodies to Rubeola is presumptive evidenceof immunity except when acute infection is suspected. Performed By: #### L MMR ####Testing performed at [address] [address] RUBELLA AB, IGG 1.41 index Normal Immune >0.99 [facility] Comment on above: Result Comment: (NOT E) Non-immune <0.90 Equivocal 0.90 - 0.99 Immune >0.99 Performed By: #### L MMR ####Testing performed at [address] [address] FAX REQUESTon 01-25-2018 FAX TO [phone] Normal [facility] Comment on above: Performed By: #### L MMR ####Testing performed at [address] [address] Vital Signs Date Time Vital Sign Value Performing Clinician Jacques anderson 01-29-2025 09:58-0400 Body mass index (BMI) [Ratio] 28.67 kg/m2 Machelle Weems APRN.CNM Work Phone: [facility] 01-29-2025 09:58-0400 Body weight 75.75 kg Machelle Weems APRN.CNM Work Phone: [facility] 01-29-2025 09:58-0400 Diastolic blood pressure 62 mm[Hg] Machelle Weems ONLINE RETAILER.CNM Work Phone: [facility] 01-29-2025 09:58-0400 Systolic blood pressure 110 mm[Hg] Machelle Weems ONLINE RETAILER.CNM Work Phone: [facility] 2025 13:58-0400 Body mass index (BMI) [Ratio] 28.32 kg/m2 Rama Jacob MD Work Phone: [facility] 2025 13:58-0400 Body weight 74.84 kg Rama Jacob MD Work Phone: [facility] 2025 13:58-0400 Diastolic blood pressure 75 mm[Hg] Rama Jacob MD Work Phone: [facility] 2025 13:58-0400 Systolic blood pressure 121 mm[Hg] Rama Jacob MD Work Phone: [facility] 01-22-2025 12:13-0400 Body mass index (BMI) [Ratio] 28.49 kg/m2 Rama Jacob MD Work Phone: [facility] 01-22-2025 12:13-0400 Body weight 75.3 kg Rama Jacob MD Work Phone: [facility] 01-22-2025 12:13-0400 Diastolic blood pressure 68 mm[Hg] Rama Jacob MD Work Phone: [facility] 01-22-2025 12:13-0400 Systolic blood pressure 122 mm[Hg] Rama Jacob MD Work Phone: [facility] 01-15-2025 09:04-0400 Body mass index (BMI) [Ratio] 28.67 kg/m2 Sofy Bradshaw MD Work Phone: [facility] 01-15-2025 09:04-0400 Body weight 75.75 kg Sofy Bradshaw MD Work Phone: [facility] 01-15-2025 09:04-0400 Diastolic blood pressure 70 mm[Hg] Sofy Bradshaw MD Work Phone: [facility] 01-15-2025 09:04-0400 Systolic blood pressure 110 mm[Hg] Sofy Bradshaw MD Work Phone: [facility] 01-08-2025 09:46-0400 Body mass index (BMI) [Ratio] 28.67 kg/m2 Machelle Weems APRN.CNM Work Phone: [facility] 01-08-2025 09:46-0400 Body weight 75.75 kg Machelle Plotts ONLINE RETAILER.CNM Work Phone: [facility] 01-08-2025 09:46-0400 Diastolic blood pressure 64 mm[Hg] Machelle Plotts ONLINE RETAILER.CNM Work Phone: [facility] 01-08-2025 09:46-0400 Systolic blood pressure 112 mm[Hg] Machelle Plotts ONLINE RETAILER.CNM Work Phone: [facility] 12-26-2024 10:43-0400 Body mass index (BMI) [Ratio] 28.15 kg/m2 Machelle Plotts ONLINE RETAILER.CNM Work Phone: [facility] 12-26-2024 10:43-0400 Body weight 74.39 kg Machelle Plotts ONLINE RETAILER.CNM Work Phone: [facility] 12-26-2024 10:43-0400 Diastolic blood pressure 64 mm[Hg] Machelle Plotts ONLINE RETAILER.CNM Work Phone: [facility] 12-26-2024 10:43-0400 Systolic blood pressure 106 mm[Hg] Machelle Plotts ONLINE RETAILER.CNM Work Phone: [facility] 11-25-2024 09:53-0400 Body mass index (BMI) [Ratio] 27.98 kg/m2 Krissy Galvan ONLINE RETAILER.CNM Work Phone: [facility] 11-25-2024 09:53-0400 Body weight 73.94 kg Krissy Galvan ONLINE RETAILER.CNM Work Phone: [facility] 11-25-2024 09:53-0400 Diastolic blood pressure 62 mm[Hg] Krissy Galvan ONLINE RETAILER.CNM Work Phone: [facility] 11-25-2024 09:53-0400 Systolic blood pressure 118 mm[Hg] Krissy Galvan ONLINE RETAILER.CNM Work Phone: [facility] 11-11-2024 09:20-0400 Body mass index (BMI) [Ratio] 27.98 kg/m2 Jose England MD Work Phone: [facility] 11-11-2024 09:20-0400 Body weight 73.94 kg Jose England MD Work Phone: [facility] 11-11-2024 09:20-0400 Diastolic blood pressure 62 mm[Hg] Jose England MD Work Phone: [facility] 11-11-2024 09:20-0400 Systolic blood pressure 100 mm[Hg] Jose England MD Work Phone: [facility] 10-06-2024 13:09-0400 Body height 162.6 cm Gala Vizcarra MD Work Phone: [facility] 10-06-2024 13:09-0400 Body mass index (BMI) [Ratio] 26.78 kg/m2 Gala Vizcarra MD Work Phone: [facility] 10-06-2024 13:09-0400 Body weight 70.76 kg Gala Vizcarra MD Work Phone: [facility] 10-06-2024 13:09-0400 Diastolic blood pressure 56 mm[Hg] Gala Vizcarra MD Work Phone: [facility] 10-06-2024 13:09-0400 Heart rate 111 /min Gala Vizcarra MD Work Phone: [facility] 10-06-2024 13:09-0400 Respiratory rate 12 /min Gala Vizcarra MD Work Phone: [facility] 10-06-2024 13:09-0400 SaO2% (BldA) [Mass fraction] 100 % Gala Vizcarra MD Work Phone: [facility] 10-06-2024 13:09-0400 Systolic blood pressure 130 mm[Hg] Gala Vizcarra MD Work Phone: [facility] 09-17-2024 11:50-0500 Body mass index (BMI) [Ratio] 26.16 kg/m2 Krissy Galvan APRN.CNM Work Phone: [facility] 09-17-2024 11:50-0500 Body weight 69.13 kg Krissy Galvan ONLINE RETAILER.CNM Work Phone: [facility] 09-17-2024 11:50-0500 Diastolic blood pressure 66 mm[Hg] Krissy Galvan ONLINE RETAILER.CNM Work Phone: [facility] 09-17-2024 11:50-0500 Systolic blood pressure 102 mm[Hg] Krissy Galvan ONLINE RETAILER.CNM Work Phone: [facility] 08-19-2024 11:15-0500 Body mass index (BMI) [Ratio] 25.4 kg/m2 Krissy Galvan ONLINE RETAILER.CNM Work Phone: [facility] 08-19-2024 11:15-0500 Body weight 67.13 kg Krissy Galvan ONLINE RETAILER.CNM Work Phone: [facility] 08-19-2024 11:15-0500 Diastolic blood pressure 70 mm[Hg] Krissy Galvan ONLINE RETAILER.CNM Work Phone: [facility] 08-19-2024 11:15-0500 Systolic blood pressure 116 mm[Hg] Krissy Galvan ONLINE RETAILER.CNM Work Phone: [facility] 07-21-2024 11:02-0500 Body mass index (BMI) [Ratio] 23.69 kg/m2 Machelle Weems ONLINE RETAILER.CNM Work Phone: [facility] 07-21-2024 11:02-0500 Body weight 62.6 kg Machelle Plotdanita ONLINE RETAILER.CNM Work Phone: [facility] 07-21-2024 11:02-0500 Diastolic blood pressure 64 mm[Hg] Machelle Plotts ONLINE RETAILER.CNM Work Phone: [facility] 07-21-2024 11:02-0500 Systolic blood pressure 112 mm[Hg] Machelle Plotts ONLINE RETAILER.CNM Work Phone: [facility] 06-16-2024 13:09-0500 Body height 162.6 cm Machelle Plotts ONLINE RETAILER.CNM Work Phone: [facility] 06-16-2024 13:09-0500 Body mass index (BMI) [Ratio] 23.17 kg/m2 Machelle Plotts ONLINE RETAILER.CNM Work Phone: [facility] 06-16-2024 13:09-0500 Body weight 61.24 kg Machelle Plotts ONLINE RETAILER.CNM Work Phone: [facility] 06-16-2024 13:09-0500 Diastolic blood pressure 62 mm[Hg] Machelle Plotts ONLINE RETAILER.CNM Work Phone: [facility] 06-16-2024 13:09-0500 Systolic blood pressure 100 mm[Hg] Machelle Plotts ONLINE RETAILER.CNM Work Phone: [facility] 05-05-2024 08:04-0400 Body height 165 cm Caryn Podlogar ONLINE RETAILER.GROUND WATER TECHNICIAN Work Phone: [facility] 05-05-2024 08:04-0400 Body mass index (BMI) [Ratio] 21.76 kg/m2 Caryn Podlogar ONLINE RETAILER.GROUND WATER TECHNICIAN Work Phone: [facility] 05-05-2024 08:04-0400 Body weight 59.24 kg Caryn Podlogar ONLINE RETAILER.GROUND WATER TECHNICIAN Work Phone: [facility] 05-05-2024 08:04-0400 Diastolic blood pressure 70 mm[Hg] Caryn Podlogar ONLINE RETAILER.GROUND WATER TECHNICIAN Work Phone: [facility] 05-05-2024 08:04-0400 Heart rate 86 /min Caryn Podlogar ONLINE RETAILER.GROUND WATER TECHNICIAN Work Phone: [facility] 05-05-2024 08:04-0400 Respiratory rate 18 /min Caryn Podlogar ONLINE RETAILER.GROUND WATER TECHNICIAN Work Phone: [facility] 05-05-2024 08:04-0400 SaO2% (BldA) [Mass fraction] 98 % Caryn Podlogar ONLINE RETAILER.GROUND WATER TECHNICIAN Work Phone: [facility] 05-05-2024 08:04-0400 Systolic blood pressure 114 mm[Hg] Caryn Strauss ONLINE RETAILER.GROUND WATER TECHNICIAN Work Phone: [facility] 04-17-2024 10:36-0400 Body height 162.6 cm Machelle Plotts ONLINE RETAILER.CNM Work Phone: [facility] 04-17-2024 10:36-0400 Body mass index (BMI) [Ratio] 22.49 kg/m2 Machelle Plotts ONLINE RETAILER.CNM Work Phone: [facility] 04-17-2024 10:36-0400 Body weight 59.42 kg Machelle Plotts ONLINE RETAILER.CNM Work Phone: [facility] 04-17-2024 10:36-0400 Diastolic blood pressure 64 mm[Hg] Machelle Plotts ONLINE RETAILER.CNM Work Phone: [facility] 04-17-2024 10:36-0400 Systolic blood pressure 108 mm[Hg] Machelle Plotts ONLINE RETAILER.CNM Work Phone: [facility] 11-26-2023 11:59-0400 Body mass index (BMI) [Ratio] 21.6 kg/m2 Machelle Plotts ONLINE RETAILER.CNM Work Phone: [facility] 11-26-2023 11:59-0400 Body weight 57.97 kg Machelle Plotts ONLINE RETAILER.CNM Work Phone: [facility] 11-26-2023 11:59-0400 Diastolic blood pressure 78 mm[Hg] Machelle Plotts ONLINE RETAILER.CNM Work Phone: [facility] 11-26-2023 11:59-0400 Systolic blood pressure 110 mm[Hg] Machelle Plotts ONLINE RETAILER.CNM Work Phone: [facility] 08-24-2023 15:53-0500 Body weight 59.33 kg Machelle Plotts ONLINE RETAILER.CNM Work Phone: [facility] 08-24-2023 15:53-0500 Diastolic blood pressure 66 mm[Hg] Machelle Plotts ONLINE RETAILER.CNM Work Phone: [facility] 08-24-2023 15:53-0500 Systolic blood pressure 110 mm[Hg] Machelle Weems APRN.CNM Work Phone: [facility] 04-20-2023 10:30-0400 Body height 162.[address] Yousif Hagan Work Phone: [facility] 04-20-2023 10:30-0400 Body mass index (BMI) [Ratio] 24.3 kg/m2 Dr. Yousif Hagan Work Phone: [facility] 04-20-2023 10:30-0400 Body temperature 96.9 [degF] Dr. Yousif Hagan Work Phone: [facility] 04-20-2023 10:30-0400 Body weight 64.[address] Yousif Hagan Work Phone: [facility] 04-20-2023 10:30-0400 Diastolic blood pressure 70 mm[Hg] Dr. Yousif Hagan Work Phone: [facility] 04-20-2023 10:30-0400 Heart rate 72 /min Dr. Yousif Hagan Work Phone: [facility] 04-20-2023 10:30-0400 Respiratory rate 18 /min Dr. Yousif Hagan Work Phone: [facility] 04-20-2023 10:30-0400 SaO2% (BldA) [Mass fraction] 97 % Dr. Yousif Hagan Work Phone: [facility] 04-20-2023 10:30-0400 Systolic blood pressure 104 mm[Hg] Dr. Yousif Hagan Work Phone: [facility] 04-16-2023 09:31-0400 Body weight 64.77 kg Machelle Weems APRN.CNM Work Phone: [facility] 04-16-2023 09:31-0400 Diastolic blood pressure 62 mm[Hg] Machelle Weems ONLINE RETAILER.CNM Work Phone: [facility] 04-16-2023 09:31-0400 Systolic blood pressure 100 mm[Hg] Machelle Weems ONLINE RETAILER.CNM Work Phone: [facility] 03-03-2023 08:00-0400 Body temperature 97.4 [degF] Dr. Yousif Hagan Work Phone: [facility] 03-03-2023 08:00-0400 Diastolic blood pressure 66 mm[Hg] Dr. Yousif Hagan Work Phone: [facility] 03-03-2023 08:00-0400 Heart rate 83 /min Dr. Yousif Hagan Work Phone: [facility] 03-03-2023 08:00-0400 Respiratory rate 16 /min Dr. Yousif Hagan Work Phone: [facility] 03-03-2023 08:00-0400 Systolic blood pressure 100 mm[Hg] Dr. Yousif Hagan Work Phone: [facility] 03-03-2023 01:58-0400 SaO2% (BldA) [Mass fraction] 98 % Dr. Yousif Hagan Work Phone: [facility] 02-28-2023 19:07-0400 Body height 162.[address] Yousif Hagan Work Phone: [facility] 02-28-2023 19:07-0400 Body mass index (BMI) [Ratio] 27.9 kg/m2 Dr. Yousif Hagan Work Phone: [facility] 02-28-2023 19:07-0400 Body weight 73.[address] Yousif Hagan Work Phone: [facility] 02-28-2023 15:30-0400 Body weight 73.03 kg Machelle Plotts ONLINE RETAILER.CNM Work Phone: [facility] 02-28-2023 15:30-0400 Diastolic blood pressure 77 mm[Hg] Machelle Plotts ONLINE RETAILER.CNM Work Phone: [facility] 02-28-2023 15:30-0400 Systolic blood pressure 116 mm[Hg] Machelle Plotts ONLINE RETAILER.CNM Work Phone: [facility] 02-19-2023 11:11-0400 Body weight 73.03 kg Machelle Plotts ONLINE RETAILER.CNM Work Phone: [facility] 02-19-2023 11:11-0400 Diastolic blood pressure 66 mm[Hg] Machelle Plotts ONLINE RETAILER.CNM Work Phone: [facility] 02-19-2023 11:11-0400 Systolic blood pressure 110 mm[Hg] Machelle Plotts ONLINE RETAILER.CNM Work Phone: [facility] 02-14-2023 14:11-0400 Body weight 73.03 kg Machelle Plotts ONLINE RETAILER.CNM Work Phone: [facility] 02-14-2023 14:11-0400 Diastolic blood pressure 78 mm[Hg] Machelle Plotts ONLINE RETAILER.CNM Work Phone: [facility] 02-14-2023 14:11-0400 Systolic blood pressure 119 mm[Hg] Machelle Plotts ONLINE RETAILER.CNM Work Phone: [facility] 02-09-2023 11:19-0400 Body temperature 97.8 [degF] Dr. Yousif Hagan Work Phone: [facility] 02-09-2023 11:19-0400 Diastolic blood pressure 79 mm[Hg] Dr. Yousif Hagan Work Phone: [facility] 02-09-2023 11:19-0400 Heart rate 93 /min Dr. Yousif Hagan Work Phone: [facility] 02-09-2023 11:19-0400 SaO2% (BldA) [Mass fraction] 99 % Dr. Yousif Hagan Work Phone: [facility] 02-09-2023 11:19-0400 Systolic blood pressure 126 mm[Hg] Dr. Yousif Hagan Work Phone: [facility] 02-09-2023 11:12-0400 Body mass index (BMI) [Ratio] 27.8 kg/m2 Dr. Yousif Hagan Work Phone: [facility] 02-09-2023 11:12-0400 Body weight 73.[address] Yousif Hagan Work Phone: [facility] 01-17-2023 12:57-0400 Body weight 72.12 kg Machelle Weems ONLINE RETAILER.CNM Work Phone: [facility] 01-17-2023 12:57-0400 Diastolic blood pressure 76 mm[Hg] Machelle Mackayts ONLINE RETAILER.CNM Work Phone: [facility] 01-17-2023 12:57-0400 Systolic blood pressure 121 mm[Hg] Machelle Plotdanita ONLINE RETAILER.CNM Work Phone: [facility] 01-03-2023 13:46-0400 Body weight 71.67 kg Krissy Galvan ONLINE RETAILER.CNM Work Phone: [facility] 01-03-2023 13:46-0400 Diastolic blood pressure 72 mm[Hg] Krisys Galvan ONLINE RETAILER.CNM Work Phone: [facility] 01-03-2023 13:46-0400 Systolic blood pressure 116 mm[Hg] Krissy Galvan ONLINE RETAILER.CNM Work Phone: [facility] 12-20-2022 13:46-0400 Body weight 69.85 kg Krissy Galvan ONLINE RETAILER.CNM Work Phone: [facility] 12-20-2022 13:46-0400 Diastolic blood pressure 72 mm[Hg] Krissy Galvan APRN.CNM Work Phone: [facility] 12-20-2022 13:46-0400 Systolic blood pressure 114 mm[Hg] Krissy Galvan APRN.CNM Work Phone: [facility] 12-19-2022 13:09-0400 Body height 162.[address] Yousif Hagan Work Phone: [facility] 12-19-2022 13:09-0400 Body mass index (BMI) [Ratio] 26.4 kg/m2 Dr. Yousif Hagan Work Phone: [facility] 12-19-2022 13:09-0400 Body weight 69.[address] Yousif Hagan Work Phone: [facility] 12-19-2022 13:09-0400 Diastolic blood pressure 62 mm[Hg] Dr. Yousif Hagan Work Phone: [facility] 12-19-2022 13:09-0400 Heart rate 108 /min Dr. Yousif Hagan Work Phone: [facility] 12-19-2022 13:09-0400 Respiratory rate 16 /min Dr. Yousif Hagan Work Phone: [facility] 12-19-2022 13:09-0400 Systolic blood pressure 103 mm[Hg] Dr. Yousif Hagan Work Phone: [facility] 12-13-2022 10:54-0400 Body mass index (BMI) [Ratio] 26.2 kg/m2 Dr. Yousif Hagan Work Phone: [facility] 12-13-2022 10:54-0400 Body temperature 98.5 [degF] Dr. Yousif Hagan Work Phone: [facility] 12-13-2022 10:54-0400 Body weight 69.[address] Yousif Hagan Work Phone: [facility] 12-13-2022 10:54-0400 Diastolic blood pressure 70 mm[Hg] Dr. Yousif Hagan Work Phone: [facility] 12-13-2022 10:54-0400 Heart rate 92 /min Dr. Yousif Hagan Work Phone: [facility] 12-13-2022 10:54-0400 Respiratory rate 14 /min Dr. Yousif Hagan Work Phone: [facility] 12-13-2022 10:54-0400 SaO2% (BldA) [Mass fraction] 99 % Dr. Yousif Hagan Work Phone: [facility] 12-13-2022 10:54-0400 Systolic blood pressure 138 mm[Hg] Dr. Yousif Hagan Work Phone: [facility] 12-04-2022 13:45-0400 Body weight 68.49 kg Krissy Galvan ONLINE RETAILER.CNM Work Phone: [facility] 12-04-2022 13:45-0400 Diastolic blood pressure 66 mm[Hg] Krissy Galvan ONLINE RETAILER.CNM Work Phone: [facility] 12-04-2022 13:45-0400 Systolic blood pressure 108 mm[Hg] Krissy Galvan ONLINE RETAILER.CNM Work Phone: [facility] 11-22-2022 14:43-0400 Body weight 68.49 kg Krissy Galvan ONLINE RETAILER.CNM Work Phone: [facility] 11-22-2022 14:43-0400 Diastolic blood pressure 74 mm[Hg] Krissy Galvan ONLINE RETAILER.CNM Work Phone: [facility] 11-22-2022 14:43-0400 Systolic blood pressure 119 mm[Hg] Krissy Galvan ONLINE RETAILER.CNM Work Phone: [facility] 10-25-2022 14:07-0400 Body weight 65.77 kg Krissy Galvan ONLINE RETAILER.CNM Work Phone: [facility] 10-25-2022 14:07-0400 Diastolic blood pressure 76 mm[Hg] Krissy Galvan ONLINE RETAILER.CNM Work Phone: [facility] 10-25-2022 14:07-0400 Systolic blood pressure 113 mm[Hg] Krissy Galvan ONLINE RETAILER.CNM Work Phone: [facility] 10-12-2022 10:05-0400 Body weight 62.14 kg Anjelica Pichardo MD Work Phone: [facility] 10-12-2022 10:05-0400 Diastolic blood pressure 78 mm[Hg] Anjelica Pichardo MD Work Phone: [facility] 10-12-2022 10:05-0400 Systolic blood pressure 124 mm[Hg] Anjelica Pichardo MD Work Phone: [facility] 10-04-2022 15:01-0400 Body weight 63.05 kg Anjelica Pichardo MD Work Phone: [facility] 10-04-2022 15:01-0400 Diastolic blood pressure 72 mm[Hg] Anjelica Pichardo MD Work Phone: [facility] 10-04-2022 15:01-0400 Systolic blood pressure 112 mm[Hg] Anjelica Pichardo MD Work Phone: [facility] 09-27-2022 15:25-0500 Body weight 63.41 kg Machelle Weems ONLINE RETAILER.CNM Work Phone: [facility] 09-27-2022 15:25-0500 Diastolic blood pressure 68 mm[Hg] Machelle Plotdanita ONLINE RETAILER.CNM Work Phone: [facility] 09-27-2022 15:25-0500 Systolic blood pressure 108 mm[Hg] Machelle Weems ONLINE RETAILER.CNM Work Phone: [facility] 09-06-2022 16:18-0500 Body weight 61.24 kg Jacki Knapp MD Work Phone: [facility] 09-06-2022 16:18-0500 Diastolic blood pressure 64 mm[Hg] Jacki Knapp MD Work Phone: [facility] 09-06-2022 16:18-0500 Systolic blood pressure 110 mm[Hg] Jacki Knapp MD Work Phone: [facility] 08-07-2022 10:25-0500 Body height 163.8 cm Jacki Knapp MD Work Phone: [facility] 08-07-2022 10:25-0500 Body weight 58.97 kg Jacki Knapp MD Work Phone: [facility] 08-07-2022 10:25-0500 Diastolic blood pressure 64 mm[Hg] Jacki Knapp MD Work Phone: [facility] 08-07-2022 10:25-0500 Systolic blood pressure 104 mm[Hg] Jacki Knapp MD Work Phone: [facility] 06-19-2022 10:10-0500 Body height 162.[address] Yousif Hagan Work Phone: [facility] 06-19-2022 10:10-0500 Body mass index (BMI) [Ratio] 22.3 kg/m2 Dr. Yousif Hagan Work Phone: [facility] 06-19-2022 10:10-0500 Body weight 58.[address] Yousif Hagan Work Phone: [facility] 06-19-2022 10:10-0500 Diastolic blood pressure 64 mm[Hg] Dr. Yousif Hagan Work Phone: [facility] 06-19-2022 10:10-0500 Systolic blood pressure 114 mm[Hg] Dr. Yousif Hagan Work Phone: [facility] 06-12-2022 09:55-0500 Diastolic blood pressure 80 mm[Hg] Dr. Yousif Hagan Work Phone: [facility] 06-12-2022 09:55-0500 Heart rate 74 /min Dr. Yousif Hagan Work Phone: [facility] 06-12-2022 09:55-0500 Respiratory rate 12 /min Dr. Yousif Hagan Work Phone: [facility] 06-12-2022 09:55-0500 SaO2% (BldA) [Mass fraction] 98 % Dr. Yousif Hagan Work Phone: [facility] 06-12-2022 09:55-0500 Systolic blood pressure 134 mm[Hg] Dr. Yousif Hagan Work Phone: [facility] 04-19-2022 16:44-0400 Body height 165.[address] Yousif Hagan Work Phone: [facility] Work Phone: 04-19-2022 16:44-0400 Body mass index (BMI) [Ratio] 21.9 kg/m2 Dr. Yousif Hagan Work Phone: [facility] Work Phone: 04-19-2022 16:44-0400 Body temperature 97.3 [degF] Dr. Yousif Hagan Work Phone: [facility] Work Phone: 04-19-2022 16:44-0400 Body weight 59.[address] Yousif Hagan Work Phone: [facility] Work Phone: 04-19-2022 16:44-0400 Diastolic blood pressure 74 mm[Hg] Dr. Yousif Hagan Work Phone: [facility] Work Phone: 04-19-2022 16:44-0400 Heart rate 83 /min Dr. Yousif Hagan Work Phone: [facility] Work Phone: 04-19-2022 16:44-0400 Respiratory rate 16 /min Dr. Yousif Hagan Work Phone: [facility] Work Phone: 04-19-2022 16:44-0400 SaO2% (BldA) [Mass fraction] 98 % Dr. Yousif Hagan Work Phone: [facility] Work Phone: 04-19-2022 16:44-0400 Systolic blood pressure 120 mm[Hg] Dr. Yousif Hagan Work Phone: [facility] Work Phone: Encounters Encounter Date Encounter Type Care Provider Facility Start: 02-01-2025 ambulatory Anjelica Bryant y:[facility] Start: 01-29-2025 End: 01-29-2025 Patient encounter procedure Machelle Thompsondanita DEWEY.CNM Work Phone: OB/Gynecology Comment on above: Encounter for superv ision of other normal in third trimester (HCC) (Primary Dx); History of asthma; 39 weeks gestation of (HCC); Palpitations; Depression affecting (HCC); Anxiety Start: 01-29-2025 End: 01-29-2025 ambulatory MACHELLE WEEMS Facility:[facility] Start: 01-28-2025 End: 01-28-2025 Telephone encounter Jacki Knapp MD Work Phone: OB/Gynecology Start: 2025 End: [address] Yousif Hagan MD Work Phone: -[facility] Start: 2025 End: [address] Enid Aquino DC -[facility] Work Phone: Comment on above: Encounter for superv ision of other normal in third trimester (HCC) (Primary Dx); History of depression; History of asthma; 39 weeks gestation of (HCC) Start: 2025 End: 2025 ambulatory RAMA JACOB Facility:[facility] Start: 01-22-2025 End: 01-22-2025 Patient encounter procedure Rama Jacob MD Work Phone: OB/Gynecology Comment on above: Encounter for superv ision of other normal in third trimester (HCC) (Primary Dx); 38 weeks gestation of (HCC) Start: 01-22-2025 End: 01-22-2025 ambulatory RAMA JACOB Facility:[facility] Start: 01-20-2025 End: 01-20-2025 ambulatory Marlen Vu MA [facility] Start: 01-20-2025 End: 01-20-2025 Patient encounter procedure Marlen Vu MA [facility] Comment on above: Population Health Na vigation Outreach (Ob/peds) Start: 01-19-2025 End: 01-19-[address] Enid Aquino DC -[facility] Work Phone: Start: 01-19-2025 End: 01-19-[address] Yousif Hagan MD Work Phone: [facility] Start: 01-15-2025 End: 01-15-2025 Patient encounter procedure Sofy Bradshaw MD Work Phone: OB/Gynecology Comment on above: Encounter for superv ision of other normal in third trimester (HCC) (Primary Dx); 37 weeks gestation of (HCC); Encounter for supervision of normal first in first trimester (HCC); History of depression; History of asthma; Depression affecting (HCC) Start: 01-15-2025 End: 01-15-2025 ambulatory CHAGO MARTINEZ Facility:[facility] Start: 01-12-2025 End: 01-12-[address] Enid Aquino DC -[facility] Work Phone: Start: 01-12-2025 End: 01-12-[address] Yousif Hagan MD Work Phone: [facility] Work Phone: Start: 01-08-2025 End: 01-08-2025 Patient encounter procedure Machelle Weems ONLINE RETAILER.CNM Work Phone: OB/Gynecology Comment on above: Encounter for superv ision of other normal in third trimester (HCC) (Primary Dx); Palpitations; Nausea and vomiting during (HCC); Family history of Higuera syndrome; Anxiety; 36 weeks gestation of (HCC); Heartburn during in second trimester (HCC) Start: 01-08-2025 End: 01-08-2025 ambulatory [facility] Facility:[facility] Start: 01-05-2025 End: 01-05-[address] Enid Aquino DC -[facility] Work Phone: Start: 01-05-2025 End: 01-05-[address] Yousif Hagan MD Work Phone: [facility] Work Phone: Start: 12-29-2024 End: 12-29-[address] Enid Aquino DC -[facility] Work Phone: Start: 12-29-2024 End: 12-29-[address] Yousif Hagan MD Work Phone: [facility] Work Phone: Start: 12-26-2024 End: 12-26-2024 Patient encounter procedure Machelle Weems ONLINE RETAILER.CNM Work Phone: OB/Gynecology Comment on above: Encounter for superv ision of other normal in third trimester (HCC) (Primary Dx); Nausea and vomiting during (HCC); Palpitations; Family history of Higuera syndrome; Anxiety; 34 weeks gestation of (HCC) Start: 12-26-2024 End: 12-26-2024 ambulatory [facility] Facility:[facility] Start: 12-22-2024 End: 12-22-[address] Enid Aquino DC -[facility] Work Phone: Start: 12-22-2024 End: 12-22-[address] Yousif Hagan MD Work Phone: [facility] Work Phone: Start: 12-09-2024 End: 12-09-2024 ambulatory CHAGO MARTINEZ Facility:[facility] Start: 11-25-2024 End: 11-25-2024 ambulatory CHAGO MARTINEZ Facility:[facility] Start: 11-25-2024 End: 11-25-2024 Patient encounter procedure Krisys Galvan APRN.CNM Work Phone: OB/Gynecology Comment on above: Encounter for superv ision of other normal in third trimester (HCC) (Primary Dx); 30 weeks gestation of (HCC); Nausea and vomiting during (HCC); Heartburn during in second trimester (HCC); Depression affecting (HCC); Palpitations; Low T4 Start: 11-24-2024 End: 11-24-[address] Enid Aquino DC -[facility] Work Phone: Start: 11-24-2024 End: 11-24-2024 ambulatory Yousif Hagan Facility:[facility] Start: 11-13-2024 End: 01-13-2025 Follow-up encounter Rama Jacob MD Work Phone: OB/Gynecology Start: 11-11-2024 End: 11-11-2024 Patient encounter procedure Jose England MD Work Phone: OB/Gynecology Comment on above: 28 weeks gestation o f (HCC) (Primary Dx); Encounter for supervision of other normal in third trimester (HCC); Need for vaccination; Palpitations Start: 11-11-2024 End: 11-11-2024 ambulatory CHAGO MARTINEZ Facility:[facility] Start: 11-10-2024 End: 11-10-2024 ambulatory RAMA AJCOB Facility:[facility] Start: 10-27-2024 End: 10-27-[address] Enid Aquino DC -[facility] Work Phone: Start: 10-27-2024 End: 10-27-2024 ambulatory Yousif Hagan Facility:[facility] Start: 10-20-2024 End: 10-22-2024 Follow-up encounter Gala Vizcarra MD Work Phone: [facility] [place] Comment on above: Results Start: 10-20-2024 End: 10-20-2024 ambulatory GALA VIZCARRA Facility:[facility] Start: 10-16-2024 End: 10-16-2024 ambulatory RAMA JACOB Facility:[facility] Start: 10-06-2024 End: 10-06-2024 ambulatory GALA VIZCARRA Facility:[facility] Start: 10-06-2024 End: 10-06-2024 Patient encounter procedure Gala Vizcarra MD Work Phone: Cardiology Comment on above: Palpitations (Primar y Dx) Start: 09-29-2024 End: 09-29-[address] Enid Aquino DC -[facility] Work Phone: Start: 09-29-2024 End: 09-29-2024 ambulatory Yousif Hagan Facility:[facility] Start: 09-18-2024 End: 09-18-2024 ambulatory KRISSY GALVAN Facility:[facility] Start: 09-18-2024 End: 11-18-2024 Follow-up encounter Machelle Weems APRN.CNM Work Phone: OB/Gynecology Start: 09-17-2024 End: 09-17-2024 E-mail encounter from caregiver [facility] OB/Gynecology Start: 09-17-2024 End: 09-17-2024 ambulatory [facility] OB/Gynecology Comment on above: Preliminary Result N arrative Start: 09-17-2024 End: 09-17-2024 Patient encounter procedure [employer] [facility] Comment on above: Encounter for anatomic survey (Primary Dx); 20 weeks gestation of Encounter for superv ision of other normal in second trimester (Primary Dx); 20 weeks gestation of ; Nausea and vomiting during ; Heartburn during in second trimester; Depression affecting ; History of asthma; Palpitations; Abnormal thyroid blood test Start: 08-28-2024 End: 08-28-[address] Enid Aquino [facility] Work Phone: Start: 08-28-2024 End: 08-28-2024 ambulatory Yousif Hagan Facility:[facility] Start: 08-19-2024 End: 08-19-2024 ambulatory CHAGO MARTINEZ Facility:[facility] Start: 08-19-2024 End: 08-19-2024 ambulatory KRISSY GALVAN Facility:[facility] Start: 08-19-2024 End: 08-19-2024 Patient encounter procedure Krissy Galvan APRN.CNM Work Phone: OB/Gynecology Comment on above: Encounter for superv ision of other normal in second trimester (Primary Dx); 16 weeks gestation of ; Dysuria; Vaginal itching; Nausea and vomiting during ; Heartburn during in second trimester; History of depression; History of asthma; Depression affecting ; Malaise and fatigue; Palpitations Start: 07-31-2024 End: 07-31-2024 ambulatory Enid Aquino Facility:[facility] Start: 07-21-2024 End: 07-21-2024 ambulatory MACHELLE WEEMS Facility:[facility] Start: 07-21-2024 End: 07-21-2024 Patient encounter procedure Machelle Weems APRN.CNM Work Phone: OB/Gynecology Comment on above: Encounter for superv ision of other normal in second trimester (Primary Dx); Nausea and vomiting during ; Anxiety; Post depression; 12 weeks gestation of ; Heartburn during in second trimester Encounter for routin e screening for malformation using ultrasonics (Primary Dx); 11 weeks gestation of Start: 07-03-2024 End: 07-03-2024 ambulatory MACHELLE WEEMS Facility:[facility] Start: 06-26-2024 End: 06-26-2024 ambulatory Enid Aquino Facility:[facility] Start: 06-16-2024 End: 06-16-2024 Patient encounter procedure Machelle Weems ONLINE RETAILER.CNM Work Phone: OB/Gynecology Comment on above: Less than [address] weeks [place] station of (Primary Dx); Encounter for supervision of other normal in first trimester; Nausea and vomiting during ; Encounter for supervision of normal first in first trimester; Post depression; Anxiety Start: 06-16-2024 End: 06-16-2024 ambulatory [facility] Facility:[facility] Start: 06-10-2024 End: 06-10-2024 Telephone encounter Rama Jacob MD Work Phone: OB/Gynecology Start: 05-29-2024 End: 05-29-2024 ambulatory Yousif Hagan Facility:[facility] Start: 05-05-2024 End: 05-05-2024 Patient encounter procedure Caryn Strauss APRN.GROUND WATER TECHNICIAN Work Phone: [facility] Comment on above: Encounter for medica l examination to establish care (Primary Dx); Screening for depression; Encounter for screening examination for other mental health and behavioral disorders; Right wrist pain; Depression, unspecified depression type Start: 05-05-2024 End: 05-05-2024 Patient encounter status Caryn Strauss APRN.CNP Work Phone: [facility] Start: 05-05-2024 End: 05-05-2024 ambulatory CHAGO MARTINEZ Facility:[facility] Start: 05-05-2024 Encounter for genera l adult medical examination without abnormal findings CARYN STRAUSS [facility] Start: 04-28-2024 End: 04-28-2024 ambulatory [facility] Facility:[facility] Start: 04-17-2024 End: 04-17-2024 ambulatory [facility] Facility:[facility] Start: 04-17-2024 End: 04-17-2024 Patient encounter procedure Machelle Weems ONLINE RETAILER.CNM Work Phone: OB/Gynecology Comment on above: Encounter for gyneco logical examination (general) (routine) without abnormal findings (Primary Dx); Screening for cervical cancer; Encounter for screening for human papillomavirus (HPV); Anxiety Start: 04-17-2024 End: 04-17-2024 Patient encounter status Machelle Thompsondanita DAVISM Work Phone: [facility] Start: 03-31-2024 End: 03-31-2024 ambulatory [facility] Facility:[facility] Start: 03-27-2024 End: 03-27-2024 Orders Only Jacki Knapp MD Work Phone: OB/Gynecology Start: 02-25-2024 End: 02-25-2024 ambulatory [facility] Facility:[facility] Start: 02-15-2024 Refill Machelle gongora APRN.CNM Work Phone: OB/Gynecology Comment on above: Refill Request Start: 02-13-2024 End: 02-13-2024 ambulatory Brandt Kohler PT Work Phone: [facility] Start: 02-13-2024 End: 02-13-2024 Manual pelvic examination Brandt Kohler PT Work Phone: [facility] Comment on above: Pelvic floor dysfunc tion (Primary Dx); Urgency of urination Start: 01-28-2024 End: 01-28-2024 Manual pelvic examination Bradnt Kohler PT Work Phone: [facility] Comment on above: Pelvic floor dysfunc tion (Primary Dx); Urgency of urination Start: 01-28-2024 End: 01-28-2024 ambulatory Brandt Kohler PT Work Phone: [facility] Start: 01-14-2024 End: 01-14-2024 ambulatory Brandt Kohler PT Work Phone: [facility] Start: 01-14-2024 End: 01-14-2024 Manual pelvic examination Brandt Kohler PT Work Phone: [facility] Comment on above: Pelvic floor dysfunc tion (Primary Dx); Urgency of urination Start: 01-03-2024 ambulatory Machelle gongora ONLINE RETAILER.CNM Work Phone: OB/Gynecology Start: 01-03-2024 Follow-up encounter Machelle maxwell ONLINE RETAILER.CNM Work Phone: OB/Gynecology Comment on above: Follow up Slicknestor juan 01/06 Start: 12-31-2023 End: 12-31-2023 ambulatory MACHELLE DANK Facility:[facility] Start: 12-31-2023 End: 12-31-2023 Manual pelvic examination Brandt Kohler PT Work Phone: [facility] Comment on above: Pelvic floor dysfunc tion (Primary Dx); Urgency of urination Start: 12-19-2023 End: 12-19-2023 Manual pelvic examination Brandt Kohler PT Work Phone: [facility] Comment on above: Pelvic floor dysfunc tion (Primary Dx); Urgency of urination Start: 12-19-2023 End: 12-19-2023 ambulatory Brandt Kohler PT Work Phone: [facility] Start: 12-04-2023 End: 12-04-2023 Manual pelvic examination Bri Miles PT Work Phone: [facility] Comment on above: Pelvic floor dysfunc tion (Primary Dx); Urgency of urination Start: 12-04-2023 End: 12-04-2023 ambulatory Bri Miles PT Work Phone: [facility] Start: 11-26-2023 End: 11-26-2023 Patient encounter procedure Machelle Weems ONLINE RETAILER.CNM Work Phone: OB/Gynecology Comment on above: care and examination (Primary Dx); Anxiety; care and examination of lactating mother Start: 11-22-2023 ambulatory Machelle gongora ONLINE RETAILER.CNM Work Phone: OB/Gynecology Comment on above: Anxiety Start: 10-15-2023 ambulatory Machelle Chava gongora ONLINE RETAILER.CNM Work Phone: OB/Gynecology Comment on above: Health form for new insurance Start: 08-24-2023 End: 08-24-2023 Patient encounter procedure Machelle Weems ONLINE RETAILER.CNM Work Phone: OB/Gynecology Comment on above: Other specified dysp areunia (Primary Dx); Urinary urgency; Vaginal pain Start: 07-19-2023 End: 07-19-[address] Yousif Hagan Work Phone: [facility] Work Phone: Start: 07-19-2023 End: 07-19-[address] Yousif Hagan Work Phone: [facility] Work Phone: Start: 07-05-2023 End: 07-05-[address] [facility] Work Phone: Start: 06-26-2023 ambulatory Machelle gongora ONLINE RETAILER.CNM Work Phone: OB/Gynecology Comment on above: safe o ptions Start: 06-07-2023 End: 06-07-[address] [facility] Work Phone: Start: 05-14-2023 End: 05-14-[address] Yousif Hagan Work Phone: [facility] Work Phone: Start: 05-02-2023 ambulatory Machelle gongora ONLINE RETAILER.CNM Work Phone: OB/Gynecology Comment on above: Short Term Disabilit y Start: 04-20-2023 End: 04-20-2023 Encounter for general adult medical examination without abnormal findings Dr. Yousif Hagan Work Phone: [facility] Start: 04-20-2023 End: 04-20-[address] Yousif Hagan Work Phone: [facility] Work Phone: Start: 04-19-[address] Mark Hagan Work Phone: [facility] Start: 04-17-2023 End: 04-17-[address] [facility]ous[facility] Hagan [facility] Work Phone: Start: 04-16-2023 End: 04-16-2023 Patient encounter procedure Machelle Weems APRN.CNNacho Work Phone: OB/Gynecology Comment on above: care and examination (Primary Dx) Start: 03-14-2023 End: 03-14-2023 Patient encounter procedure Machelle Weems APRN.CNNacho Work Phone: OB/Gynecology Comment on above: 2 weeks f ollow-up (Primary Dx); care and examination of lactating mother Start: 03-01-2023 ambulatory Machelle gongora APRN.CNNacho Work Phone: OB/Gynecology Comment on above: Ob Delivery Note Start: 02-28-2023 End: 03-03-2023 Evaluation and management of inpatient Dr. Yousif Hagan [facility] Work Phone: Start: 02-28-2023 End: 02-28-2023 Patient encounter procedure Machelle Weems APRN.CNM Work Phone: OB/Gynecology Comment on above: 39 weeks gestation o f (Primary Dx); Family history of Higuera syndrome; Encounter for supervision of normal first in second trimester Start: 02-26-2023 End: 02-26-[address] [facility] Work Phone: Start: 02-19-2023 End: 02-19-2023 Patient encounter procedure Machelle Weems APRN.CNM Work Phone: OB/Gynecology Comment on above: 38 weeks gestation o f (Primary Dx) Start: 02-14-2023 End: 02-14-2023 Patient encounter procedure Machelle Weems APRN.CNM Work Phone: OB/Gynecology Comment on above: Family history of Tu rner syndrome (Primary Dx); 37 weeks gestation of Start: 02-13-2023 End: 02-13-[address] [facility] Hagan [facility] Work Phone: Start: 02-09-2023 End: 02-09-[address] Yousif Hagan Work Phone: [facility] Work Phone: Start: 01-29-2023 End: 01-29-[address] Yousif Hagan Work Phone[facility] Work Phone: Start: 01-18-2023 End: 01-18-[address] Yousif Hagan Work Phone: [facility] Work Phone: Start: 01-18-2023 End: 01-18-[address] Yousif Hagan Work Phone: [facility] Work Phone: Start: 01-17-2023 End: 01-17-2023 Patient encounter procedure Machelle Weems APRN.CNM Work Phone: OB/Gynecology Comment on above: 33 weeks gestation o f (Primary Dx) Start: 01-09-2023 End: 01-09-[address] Yousif Hagan [facility] Work Phone: Start: 01-03-2023 End: 01-03-2023 Patient encounter procedure Krissy Galvan APRN.CNM Work Phone: OB/Gynecology Comment on above: 31 weeks gestation o f (Primary Dx); Encounter for supervision of normal first in second trimester; Family history of Higuera syndrome Start: 12-27-2022 Non-patient / Non-visit Dr. Alexus Hagan Work Phone: [facility] Start: 12-27-2022 End: 12-27-[address] [facility] Work Phone: Start: 12-26-2022 End: 12-26-[address] Yousif Hagan Work Phone[facility] Work Phone: Start: 12-20-2022 End: 12-20-2022 Patient encounter procedure Krissy Galvan APRN.CNM Work Phone: OB/Gynecology Comment on above: 29 weeks gestation o f (Primary Dx) Start: 12-19-2022 End: 12-19-[address] Yousif Hagan Work Phone: [facility] Work Phone: Start: 12-14-2022 End: 12-14-[address] Yousif Hagna Work Phone: [facility]Neu[facility] Work Phone: Start: 12-13-2022 End: 12-13-[address] Yousif Hagan Work Phone: [facility] Work Phone: Start: 12-12-2022 End: 12-12-[address] Yousif Hagan Work Phone: [facility] Work Phone: Start: 12-04-2022 End: 12-04-2022 Patient encounter procedure Krissy Galvan APRN.CNM Work Phone: OB/Gynecology Comment on above: 27 weeks gestation o f (Primary Dx); Need for vaccination Start: 11-30-2022 End: 11-30-[address] Yousif Hagan Work Phone: [facility] Work Phone: Start: 11-30-2022 End: 11-30-[address] Yousif Hagan Work Phone: [facility] Start: 11-27-2022 End: 11-27-[address] Yousif Hagan Work Phone: [facility] Start: 11-22-2022 End: 11-22-2022 Patient encounter procedure Krissy Galvan APRN.CNM Work Phone: OB/Gynecology Comment on above: 25 weeks gestation o f (Primary Dx); Encounter for supervision of normal first in second trimester Start: 11-14-2022 End: 11-14-[address] Yousif Hagan Work Phone: [facility] Start: 10-31-2022 End: 10-31-[address] Yousif Hagan Work Phone: [facility] Start: 10-25-2022 End: 10-25-2022 Patient encounter procedure Krissy Galvan APRN.CNM Work Phone: OB/Gynecology Comment on above: Family history of Tu rner syndrome (Primary Dx); 21 weeks gestation of ; Encounter for supervision of normal first in second trimester Start: 10-12-2022 End: 10-12-2022 Patient encounter procedure Anjelica Pichardo MD Work Phone: OB/Gynecology Comment on above: 19 weeks gestation o f (Primary Dx); Encounter for supervision of normal first in second trimester; Spotting during Start: 10-10-2022 Chart abstracting Anjelica trevino MD Work Phone: OB/Gynecology Comment on above: Results (Anatomy US) Start: 10-09-2022 ambulatory Anjelica randhawa MD Work Phone: OB/Gynecology Comment on above: FMLA Start: 10-09-2022 E-mail encounter fro m caregiver Anjelica Pichardo MD Work Phone: [facility] Start: 10-09-2022 End: 10-09-[address] Yousif Hagan Work Phone: [facility] Start: 10-04-2022 End: 10-04-2022 Patient encounter procedure Anjelica Pichardo MD Work Phone: OB/Gynecology Comment on above: 18 weeks gestation o f (Primary Dx); Encounter for supervision of normal first in second trimester Start: 09-27-2022 End: 09-27-2022 Patient encounter procedure Machelle Weems APRN.CNM Work Phone: OB/Gynecology Comment on above: 17 weeks gestation o f (Primary Dx); Encounter for supervision of normal first in second trimester; Family history of Higuera syndrome Start: 09-13-2022 End: 09-13-[address] Yousif Hagan Work Phone: [facility] Start: 09-12-2022 ambulatory Krissy Galvan APRN.CNM Work Phone: OB/Gynecology Comment on above: Centering Start: 09-12-2022 E-mail encounter fro nacho caregiver Krissy Galvan APRN.JHONM Work Phone: [facility] Start: 09-06-2022 End: 09-06-2022 Patient encounter procedure Jacki Knapp MD Work Phone: OB/Gynecology Comment on above: Encounter for superv ision of normal first in second trimester (Primary Dx); 14 weeks gestation of Start: 08-31-2022 Refill Jacki Knapp MD Work Phone: OB/Gynecology Comment on above: Refill Request Start: 08-31-2022 End: 08-31-[address] Yousif Hagan Work Phone: [facility] Start: 08-23-2022 End: 08-23-2022 Patient encounter procedure Jie Ann MD Work Phone: [facility] Comment on above: Encounter for (NT) n uchal translucency scan (Primary Dx); Encounter for supervision of normal first in first trimester; 12 weeks gestation of Start: 08-15-2022 End: 08-15-[address] Yousif Hagan Work Phone: [facility] Start: 08-14-2022 Refill Jacki Knapp MD Work Phone: OB/Gynecology Comment on above: Refill Request Start: 08-08-2022 End: 08-08-[address] Yousif Hagan Work Phone: [facility] Work Phone: Start: 08-08-2022 End: 08-08-[address] Yousif Hagan Work Phone: [facility] Start: 08-07-2022 End: 08-07-2022 Patient encounter procedure Jacki Knapp MD Work Phone: OB/Gynecology Comment on above: Encounter to determi ne viability of , single or unspecified fetus (Primary Dx); Encounter for supervision of normal first in first trimester; Early stage of Start: 08-07-2022 End: 08-07-2022 Patient encounter procedure Jacki Knapp MD Work Phone: OB/Gynecology Comment on above: Encounter for superv ision of normal first in first trimester (Primary Dx); Early stage of ; Nausea and vomiting in Start: 08-01-2022 End: 08-01-[address] Yousif Hagan Work Phone: [facility] Start: 07-25-2022 ambulatory Jacki Knapp MD Work Phone: OB/Gynecology Comment on above: 1st trimester nausea Start: 07-10-2022 End: 07-10-[address] Yousif Hagan Work Phone: [facility] Start: 07-05-2022 ambulatory Jacki Knapp MD Work Phone: OB/Gynecology Comment on above: Resource B ook Start: 07-05-2022 E-mail encounter fro m caregiver Jacki Knapp MD Work Phone: [facility] Start: 07-05-2022 End: 07-05-[address] Yousif Hgaan Work Phone: [facility] Start: 07-05-2022 End: 07-05-2022 Nursing evaluation of patient and report Nurse Pnob [facility] Work Phone: OB/Gynecology Comment on above: Supervision of hayden l first , antepartum (Primary Dx); Family history of Higuera syndrome Start: 07-04-2022 End: 07-04-[address] Yousif Hagan Work Phone: [facility] Work Phone: Start: 07-04-2022 End: 07-04-[address] Yousif Hagan Work Phone: [facility] Start: 07-03-2022 End: 07-03-[address] Yousif Hagan Work Phone: [facility] Start: 06-26-2022 End: 06-26-[address] Yousif Hagan Work Phone: [facility] Start: 06-22-2022 Telephone encounter Jacki Knapp MD Work Phone: OB/Gynecology Comment on above: Patient Question Results Start: 06-22-2022 End: 06-22-[address] Yousif Hagan Work Phone: [facility] Work Phone: Start: 06-22-2022 End: 06-22-[address] Yousif Hagan Work Phone: [facility] Start: 06-21-2022 End: 06-21-[address] Yousif Hagan Work Phone: [facility] Start: 06-19-2022 End: 06-19-[address] Yousif Hagan Work Phone: [facility] Work Phone: Start: 06-19-2022 End: 06-19-[address] Yousif Hagan Work Phone: [facility] Start: 06-12-2022 End: 06-12-[address] Yousif Hagan Work Phone: [facility] Start: 04-28-2022 End: 04-28-[address] Yousif Hagan Work Phone: [facility] Work Phone: Start: 04-28-2022 End: 04-28-[address] Yousif Hagan Work Phone: [facility] Start: 04-28-[address] Mark Hagan Work Phone: [facility] Start: 04-19-[address] Otis Hagan Work Phone: [facility] Start: 04-19-2022 End: 04-19-2022 Encounter for general adult medical examination without abnormal findings Dr. Yousif Hagan Work Phone: [facility] Start: 04-19-2022 End: 04-19-[address] Yousif Hagan Work Phone: [facility] Start: 01-25-2018 Ambulatory LAURAOtis [facility] Procedures Date Procedure Procedure Detail Performing Clinician Start: 01-29-2025 Urnls dip stick/tabl et rgnt non-auto w/o micrscp Machelle Weems APRN.CNM Work Phone: Start: 2025 Urnls dip stick/tabl et rgnt non-auto w/o micrscp Rama Jacob MD Work Phone: Start: 01-22-2025 Urnls dip stick/tabl et rgnt non-auto w/o micrscp Rama Jacob MD Work Phone: Start: 01-15-2025 Urnls dip stick/tabl et rgnt non-auto w/o micrscp Sofy Bradshaw MD Work Phone: Start: 01-08-2025 Urnls dip stick/tabl et rgnt non-auto w/o micrscp Machelle Weems ONLINE RETAILER.CNM Work Phone: Start: 12-26-2024 Urnls dip stick/tabl et rgnt non-auto w/o micrscp Machelle Weems ONLINE RETAILER.CNM Work Phone: Start: 09-17-2024 Us preg uterus after 1st trimest / gestation Machelle Weems ONLINE RETAILER.CNM Work Phone: Start: 08-19-2024 Urnls dip stick/tabl et rgnt auto w/o microscopy Krissy Galvan ONLINE RETAILER.CNM Work Phone: Start: 07-21-2024 Us nuchal padron slucency 1st gestation Machelle Weems ONLINE RETAILER.CNM Work Phone: Start: 07-03-2024 Antibody screen MARLO MARTINEZ Comment on above: Order Comment: Speci men Type: BLOOD SPECIMENOrdering Facility: [facility] Address: [address] [place] [address] Performed By: #### T SPN ####CC MAIN BLOOD BANKCLIA [id number] [address] [place] Start: 06-16-2024 Us uterus l imited > fetuses Machelle Weems ONLINE RETAILER.CNM Work Phone: Start: 05-05-2024 Adult depression scr eening assessment Caryn Vargaslograj ONLINE RETAILER.GROUND WATER TECHNICIAN Work Phone: Start: 08-24-2023 Urnls dip stick/tabl et rgnt auto w/o microscopy Machelle Weems ONLINE RETAILER.CNM Work Phone: Start: 02-28-2023 URINE OB DIP B/O Courtn ey Plotts ONLINE RETAILER.CNM Work Phone: Start: 02-19-2023 URINE OB DIP B/O Courtn ey Plotts ONLINE RETAILER.CNM Work Phone: Start: 02-14-2023 URINE OB DIP B/O Courtn ey Thompsondanita ONLINE RETAILER.CNM Work Phone: Start: 01-18-2023 Ultrasound scan for growth Dr. Yousif Hagan Work Phone: Start: 01-17-2023 URINE OB DIP B/O Jessic a Galvan ONLINE RETAILER.CNM Work Phone: Start: 01-03-2023 URINE OB DIP B/O Jessic a Galvan ONLINE RETAILER.CNM Work Phone: Start: 12-20-2022 URINE OB DIP B/O Jessic a Galvan ONLINE RETAILER.CNM Work Phone: Start: 12-04-2022 URINE OB DIP B/O Jessic a Galvan ONLINE RETAILER.CNM Work Phone: Start: 11-22-2022 URINE OB DIP B/O Jessic a Galvan ONLINE RETAILER.CNM Work Phone: Start: 10-25-2022 URINE OB DIP B/O Jessic a Galvan ONLINE RETAILER.CNM Work Phone: Start: 10-12-2022 Urnls dip stick/tabl et rgnt auto w/o microscopy Anjelica Pichardo MD Work Phone: Start: 10-09-[address] Yousif aHgan Work Phone: Start: 09-27-2022 URINE OB DIP B/O Jessic a Galvan ONLINE RETAILER.CNM Work Phone: Start: 09-06-2022 URINE OB DIP B/O Jacki Elizabeth Knapp MD Work Phone: Start: 08-23-2022 Us nuchal padron slucency 1st gestation Jacki Knapp MD Work Phone: Start: 08-07-2022 Us uterus l imited 1/> fetuses Jacki Knapp MD Work Phone: Start: 07-04-2022 X-ray of cervical spine Dr. Yousif Hagan Work Phone: Start: 06-19-2022 X-ray of cervical spine Dr. Yousif Hagan Work Phone: Plan of Treatment Date Care Activity Detail Author Start: 11-11-2034 Urine microalbumin profile DTaP,Tdap,Td Vaccine (10 - Td or Tdap) [facility] Start: 12-04-2032 Urine microalbumin profile [facility] Start: 12-26-2028 Urine microalbumin profile DTAP,TDAP,TD (8 - Td or Tdap) [facility] Start: 04-17-2027 Screening for malign ant neoplasm of cervix Cervical Cancer Screening [facility] Start: 05-06-2025 End: 05-06-2025 Patient encounter procedure 05/06/2025 8:40 AM EDT Office Visit [facility] [address] [place] [address] Caryn Strauss APRN.GROUND WATER TECHNICIAN [address] [place] [address] Annual Exam [facility] Comment on above: Annual Exam Start: 05-05-2025 Anxiety Screening Anxiety Screening [facility] Start: 05-05-2025 Covid-19 Vaccine ( season) Covid-19 Vaccine ( season) [facility] Comment on above: Postponed from 03/23 (Declined at this time) Start: 05-05-2025 Depression Screening Depression Scre ening [facility] Start: 04-21-2025 End: 04-21-2025 Patient encounter procedure 04/21/2025 4:00 PM EDT Office Visit OB/Gynecology [address] [place] [address] Machelle Weems APRN.CN [address] [place] [address] Annual OB/Gynecology Comment on above: Annual Start: 04-20-2025 End: 04-20-2025 Patient encounter procedure 04/20/2025 11:40 AM EDT Office Visit Cardiology [address] [place] [address] Gala Vizcarra MD [address] [facility], [address] [place] [address] Palpitations [R00.2] Cardiology Comment on above: Palpitations [R00.2] Start: 03-23-2025 Influenza vaccination Influenza Vacc ine (#1) [facility] Start: 01-29-2025 End: 01-29-2025 Patient encounter procedure 01/29/2025 10:15 AM EDT Routine Office Visit OB/Gynecology [address] [place] [address] Machelle Weems APRN.CNM [address] [place] [address] 39 wk OB OB/Gynecology Comment on above: 39 wk OB Start: 01-22-2025 End: 01-22-2025 Patient encounter procedure 01/22/2025 1:30 PM EDT Routine Office Visit OB/Gynecology [address] [place] [address] Rama Jacob MD [address] [place] [address] OB OB/Gynecology Comment on above: OB Start: 01-19-2025 Influenza vaccination Influenza Vacc ine (#1) [facility] Comment on above: Postponed from 03/23 (Declined at this time) Start: 01-15-2025 End: 01-15-2025 Patient encounter procedure 01/15/2025 4:20 PM EDT Routine Office Visit OB/Gynecology [address] [place] [address] Sofy Bradshaw MD [address] [place] [address] 37 WK OB OB/Gynecology Comment on above: 37 WK OB Start: 01-08-2025 End: 01-08-2025 Patient encounter procedure 01/08/2025 1:00 PM EDT Routine Office Visit OB/Gynecology [address] [place] [address] Machelle Weems APRN.CNM [address] [place] [address] 36 WK OB OB/Gynecology Comment on above: 36 WK OB Start: 12-09-2024 End: 12-09-2024 Patient encounter procedure 12/09/2024 11:15 AM EDT Routine Office Visit OB/Gynecology [address] [place] [address] Krissy Galvan APRN.CNM [address] [place] [address] OB OB/Gynecology Comment on above: OB Start: 11-25-2024 End: 11-25-2024 Patient encounter procedure 11/25/2024 9:30 AM EDT Routine Office Visit OB/Gynecology [address] [place] [address] Krissy Galvan APRN.CNM [address] [place] [address] OB OB/Gynecology Comment on above: OB Start: 10-20-2024 End: 10-20-2024 Patient encounter procedure 10/20/2024 8:50 AM EDT Office Visit Cardiology [address] [place] [address] Palpitations [R00.2] Cardiology Comment on above: Palpitations [R00.2] Start: 10-16-2024 End: 10-16-2024 Patient encounter procedure 10/16/2024 1:30 PM EDT Routine Office Visit OB/Gynecology [address] [place] [address] Rama Jacob MD [address] [place] [address] OB OB/Gynecology Comment on above: OB Start: 10-13-2024 End: 10-06-2025 Echocardiography ECHO Cardiology Routine Palpitations Expected: 10/13/2024, Expires: 10/06/2025 [facility] Work Phone: Comment on above: Expected: 10/13/2024 , Expires: 10/06/2025 Start: 10-06-2024 End: 10-06-2024 Patient encounter procedure 10/06/2024 1:20 PM EDT Office Visit Cardiology [address] [place] [address] Gala Vizcarra MD [address] [facility], [address] [place] [address] OB patient with palpitations Cardiology Comment on above: OB patient with palp itations Start: 09-16-2024 End: 09-16-2024 Patient encounter procedure 09/16/2024 11:20 AM EST Routine Office Visit OB/Gynecology [address] [place] [address] Jose England MD [address] [place] [address] OB Routine OB/Gynecology Comment on above: OB Routine Start: 09-03-2024 End: 09-03-2024 Patient encounter procedure 09/03/2024 10:30 AM EST Routine Office Visit Maternal Medicine [address] [place] [address] anatomy Maternal Medicine Comment on above: anatomy Start: 08-19-2024 End: 11-18-2024 25-hydroxyvitamin D3 [Mass/volume] in Serum or Plasma [facility] Comment on above: Expected: 08/19/2024 , Expires: 11/18/2024 Start: 08-19-2024 End: 11-18-2024 Cobalamin (Vitamin B12) [Mass/volume] in Serum or Plasma [facility] Comment on above: Expected: 08/19/2024 , Expires: 11/18/2024 Start: 08-19-2024 End: 11-18-2024 Thyrotropin [Units/volume] in Serum or Plasma [facility] Comment on above: Expected: 08/19/2024 , Expires: 11/18/2024 Start: 08-19-2024 End: 11-18-2024 Thyroxine (T4) free [Mass/volume] in Serum or Plasma [facility] Comment on above: Expected: 08/19/2024 , Expires: 11/18/2024 Start: 08-19-2024 End: 08-19-2024 Patient encounter procedure 08/19/2024 11:15 AM EST Routine Office Visit OB/Gynecology [address] [place], [place] [id number] Krissy Galvan APRN.CN [address] [place] [address] OB OB/Gynecology Comment on above: OB Start: 07-21-2024 End: 07-21-2025 OBSTETRIC ULTRASOUND WHI OBSTETRIC ULTRASOUND WHI Anc Imaging Routine Encounter for supervision of other normal in second trimester Nausea and vomiting during Anxiety Post depression 12 weeks gestation of Expected: 07/21/2024, Expires: 07/21/2025 [facility] Work Phone: Comment on above: Expected: 07/21/2024 , Expires: 07/21/2025 Start: 06-16-2024 End: 09-15-2024 ANEMIA REFLEX PANEL ANEMIA REFLEX PANEL Lab Routine Encounter for supervision of other normal in first trimester Expected: 06/16/2024, Expires: 09/15/2024 [facility] Comment on above: Expected: 06/16/2024 , Expires: 09/15/2024 Start: 06-16-2024 End: 09-15-2024 Hemoglobin A1c in Blood HEMOGLOBIN A1C Lab Routine Encounter for supervision of other normal in first trimester Expected: 06/16/2024, Expires: 09/15/2024 [facility] Comment on above: Expected: 06/16/2024 , Expires: 09/15/2024 Start: 06-16-2024 End: 09-15-2024 Hepatitis B virus surface Ag [Presence] in Serum HEPATITIS B SURFACE ANTIGEN Lab Routine Encounter for supervision of other normal in first trimester Expected: 06/16/2024, Expires: 09/15/2024 [facility] Comment on above: Expected: 06/16/2024 , Expires: 09/15/2024 Start: 06-16-2024 End: 09-15-2024 Hepatitis C virus Ab [Presence] in Serum HEPATITIS C ANTIBODY IA WITH CONFIRMATION Lab Routine Encounter for supervision of other normal in first trimester Expected: 06/16/2024, Expires: 09/15/2024 [facility] Comment on above: Expected: 06/16/2024 , Expires: 09/15/2024 Start: 06-16-2024 End: 09-15-2024 HIV 1+2 Ab [Presence] in Serum or Plasma by Immunoassay HIV 1/2 COMBO WITH REFLEX TO DIFFERENTIATION Lab Routine Encounter for supervision of other normal in first trimester Expected: 06/16/2024, Expires: 09/15/2024 [facility] Comment on above: Expected: 06/16/2024 , Expires: 09/15/2024 Start: 06-16-2024 End: 06-16-2025 NUCHAL TRANSLUCENCY WHI NUCHAL TRANSLUCENCY WHI Anc Imaging Routine Encounter for supervision of other normal in first trimester Expected: 06/16/2024, Expires: 06/16/2025 [facility] Comment on above: Expected: 06/16/2024 , Expires: 06/16/2025 Start: 06-16-2024 End: 09-15-2024 RUBELLA IGG ANTIBODY RUBELLA IGG ANTIBODY Lab Routine Encounter for supervision of other normal in first trimester Expected: 06/16/2024, Expires: 09/15/2024 [facility] Comment on above: Expected: 06/16/2024 , Expires: 09/15/2024 Start: 06-16-2024 End: 09-15-2024 SYPHILIS TREPONEMAL W/REFLEX SYPHILIS TREPONEMAL W/REFLEX Lab Routine Encounter for supervision of other normal in first trimester Expected: 06/16/2024, Expires: 09/15/2024 [facility] Work Phone: Comment on above: Expected: 06/16/2024 , Expires: 09/15/2024 Start: 06-16-2024 End: 09-15-2024 TYPE + SCREEN TYPE + SCREEN Blood Bank Routine Encounter for supervision of other normal in first trimester Expected: 06/16/2024, Expires: 09/15/2024 [facility] Comment on above: Expected: 06/16/2024 , Expires: 09/15/2024 Start: 06-16-2024 End: 06-16-2024 Patient encounter procedure 06/16/2024 1:00 PM EST Initial Office Visit OB/Gynecology [address] [place] [address] Machelle Weems APRN.CNM [address] [place] [address] New OB LMP 04/19 OB/Gynecology Comment on above: New OB LMP 04/19 Start: 05-05-2024 End: 05-05-2024 Patient encounter procedure 05/05/2024 8:00 AM EDT Office Visit Family Medicine [facility] [address] [place] [address] PodlogCaryn anthony APRN.GROUND WATER TECHNICIAN [address] [place] [address] new patient Family [facility] Comment on above: new patient Start: 04-17-2024 End: 04-17-2024 Patient encounter procedure 04/17/2024 10:45 AM EDT Office Visit OB/Gynecology [address] [place] [address] Machelle Weems APRN.CNM [address] [place] [address] ANNUAL OB/Gynecology Comment on above: ANNUAL Start: 03-26-2024 End: 03-26-2024 ambulatory 03/26/2024 2:45 PM EDT OT/PT/Speech [facility] [address] [place] [address] Brandt Kohler PT [address] [place] [address] $10 [facility] Comment on above: $10 [facility] Start: 03-23-2024 Covid-19 Vaccine ( season) Covid-19 Vaccine ( season) [facility] Start: 03-23-2024 Covid-19 Vaccine () Covid-19 Vaccine () [facility] Start: 03-23-2024 Influenza vaccination Influenza Vacc ine (#1) [facility] Start: 03-12-2024 End: 03-12-2024 ambulatory 03/12/2024 9:45 AM EDT OT/PT/Speech Visit [facility] [address] [place] [address] Brandt Kohler, PT [address] [place] [address] $10 [facility] Comment on above: $10 [facility] Start: 02-25-2024 End: 02-25-2024 ambulatory 02/25/2024 3:15 PM EDT OT/PT/Speech Visit [facility] [address] [place] [address] Brandt Kohler, PT [address] [place] [address] $10 [facility] Comment on above: $10 [facility] Start: 02-13-2024 End: 02-13-2024 ambulatory 02/13/2024 11:15 AM EDT OT/PT/Speech Visit [facility] [address] [place] [address] Brandt Kohler, PT [address] [place] [address] $10 [facility] Comment on above: $10 [facility] Start: 02-11-2024 End: 02-11-2024 FQHC visit new patient 02/11/2024 4:00 PM EDT [facility] [address] [place] [address] Carol Benavides, ONLINE RETAILER.GROUND WATER TECHNICIAN [address] [place] [address] NEW PATIENT Psychiatry Comment on above: NEW PATIENT Start: 01-28-2024 End: 01-28-2024 ambulatory 01/28/2024 9:30 AM EDT OT/PT/Speech Visit [facility] [address] [place] [address] Brandt Kohler PT [address] [place] [address] $10 [facility] Comment on above: $10 [facility] Start: 01-14-2024 End: 01-14-2024 ambulatory 01/14/2024 11:45 AM EDT OT/PT/Speech Visit [facility] [address] [place] [address] Brandt Kohler PT [address] [place] [address] $10 [facility] Comment on above: $10 [facility] Start: 01-07-2024 End: 01-07-2024 Patient encounter procedure 01/07/2024 10:45 AM EDT Office Visit OB/Gynecology [address] [place] [address] Machelle Weems APRN.CNM [address] [place] [address] PP 6 wk OB/Gynecology Comment on above: PP 6 wk Start: 12-31-2023 End: 12-31-2023 ambulatory 12/31/2023 10:15 AM EDT OT/PT/Speech Visit [facility] [address] [place] [address] Brandt Kohler, PT [address] [place] [address] $10 [facility] Comment on above: $10 [facility] Start: 12-19-2023 End: 12-19-2023 ambulatory 12/19/2023 9:00 AM EDT OT/PT/Speech Visit [facility] [address] [place] [address] Brandt Kohler, PT [address] [place] [address] $10 [facility] Comment on above: $10 [facility] Start: 12-04-2023 End: 12-04-2023 ambulatory 12/04/2023 5:15 PM EDT OT/PT/Speech Visit [facility] [address] [place] [address] Bri Miles, PT [address] [place] [address] Dyspareunia, urinary frequency [facility] Comment on above: Dyspareunia, urinary frequency Start: 11-26-2023 End: 11-26-2023 Patient encounter procedure 11/26/2023 11:50 AM EDT Office Visit OB/Gynecology [address] [place] [address] Machelle Weems APRN.[facility] [address] [place] [address] PP Depression - ok per CP OB/Gynecology Comment on above: PP Depression - ok p er CP Start: 08-31-2023 PAP TESTING PAP TESTING [facility] Start: 08-31-2023 Screening for malign ant neoplasm of cervix [facility] Start: 07-23-2023 Behavioral Health Screening Behavioral Health Screening [facility] Start: 07-23-2023 Depression Assessment Depression Ass essment [facility] Start: 04-20-2023 Patient referral [facility] Work Phone: Start: 03-23-2023 Covid-19 Vaccine ( season) Covid-19 Vaccine ( season) [facility] Start: 03-23-2023 Influenza vaccination [facility] Start: 03-03-2023 Patient discharge [facility] Start: 03-01-2023 Administration of medication [facility] Start: 03-01-2023 Application of ice collar, cap or bag [facility] Start: 03-01-2023 Catheterization of vein [facility] Start: 03-01-2023 Introduction of urin alina catheter [facility] Start: 03-01-2023 Measuring intake and output [facility] Start: 03-01-2023 Notification of physician [facility] Start: 03-01-2023 Procedure discontinued [facility] Start: 03-01-2023 Provision of activit y privileges [facility] Start: 03-01-2023 Vital signs measurements [facility] Start: 03-01-2023 [facility] Start: 02-28-2023 Admission procedure [facility] Start: 02-09-2023 Nonstress test [facility] Start: 02-09-2023 Obstetric monitoring [facility] Start: 02-09-2023 Vital signs measurements [facility] Start: 02-09-2023 [facility] Start: 02-09-2023 Patient discharge [facility] Start: 01-17-2023 End: 01-18-2024 OBSTETRIC ULTRASOUND WHI OBSTETRIC ULTRASOUND WHI Anc Imaging Routine 33 weeks gestation of Expected: 01/17/2023, Expires: 01/18/2024 [facility] Work Phone: Comment on above: Expected: 01/17/2023 , Expires: 01/18/2024 Start: 12-13-2022 Patient referral [facility] Work Phone: Start: 10-27-2022 End: 12-27-2022 CBC panel - Blood by Automated count CBC Lab Routine 21 weeks gestation of Encounter for supervision of normal first in second trimester Expected: 10/27/2022, Expires: 12/27/2022 [facility] Work Phone: Comment on above: Expected: 10/27/2022 , Expires: 12/27/2022 Start: 10-27-2022 End: 12-27-2022 GEST GLUC SCREEN, 1-HR, 50 GM, NON-FASTING GEST GLUC SCREEN, 1-HR, 50 GM, NON-FASTING Lab Routine 21 weeks gestation of Encounter for supervision of normal first in second trimester Expected: 10/27/2022, Expires: 12/27/2022 [facility] Work Phone: Comment on above: Expected: 10/27/2022 , Expires: 12/27/2022 Start: 10-27-2022 End: 12-27-2022 SYPHILIS TOTAL W/REFLEX SYPHILIS TOTAL W/REFLEX Lab Routine 21 weeks gestation of Encounter for supervision of normal first in second trimester Expected: 10/27/2022, Expires: 12/27/2022 [facility] Work Phone: Comment on above: Expected: 10/27/2022 , Expires: 12/27/2022 Start: 08-07-2022 End: 08-07-2023 NUCHAL TRANSLUCENCY WHI NUCHAL TRANSLUCENCY WHI Anc Imaging Routine Encounter for supervision of normal first in first trimester Expected: 08/07/2022, Expires: 08/07/2023 [facility] Work Phone: Comment on above: Expected: 08/07/2022 , Expires: 08/07/2023 Start: 08-07-2022 End: 08-07-2023 OBSTETRIC ULTRASOUND WHI OBSTETRIC ULTRASOUND WHI Anc Imaging Routine Encounter for supervision of normal first in first trimester Expected: 08/07/2022, Expires: 08/07/2023 [facility] Work Phone: Comment on above: Expected: 08/07/2022 , Expires: 08/07/2023 Start: 07-23-2022 DEPRESSION ASSESSMENT DEPRESSION ASS [facility] Start: 06-12-2022 Patient referral [facility] Work Phone: Start: 04-19-2022 Patient referral [facility] Work Phone: Start: 03-23-2022 Influenza vaccination INFLUENZA (#1) [facility] Start: 07-23-2021 DEPRESSION ASSESSMENT DEPRESSION ASS ESSMENT [facility] Start: 2015 Anxiety Screening Anxiety Screening [facility] Start: 2015 Depression Screening Depression Scre ening [facility] Start: 2015 HEPATITIS C SCREENING HEPATITIS C SC REENING [facility] Start: 2015 HIV SCREENING HIV SCREENING [facility] Start: 2011 PEDS TO ADULT TRANSI TION ANNUAL ASSESSMENT PEDS TO ADULT TRANSITION ANNUAL ASSESSMENT [facility] Start: 2009 PEDS TO ADULT TRANSI TION INITIAL DISCUSSION PEDS TO ADULT TRANSITION INITIAL DISCUSSION [facility] Start: 2007 MENINGOCOCCAL B: Con 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 based on risk (1 of 2 - Risk Bexsero 2-dose series) MENINGOCOCCAL B: Consider based on risk (1 of 2 - Risk Bexsero 2-dose series) [facility] Start: 1997 COVID-19 VACCINE (#1) COVID-19 VACCI NE (#1) [facility] Bacteria identified in Urine by Culture URINE CULTURE Microbiology Routine Encounter for supervision of normal first in first trimester 08/07/2022 11:30 AM [facility] Work Phone: Bacteria identified in Urine by Culture URINE CULTURE Microbiology Routine Encounter for supervision of other normal in first trimester 06/16/2024 1:43 PM EST [facility] Bacteria identified in Urine by Culture BACTERIAL CULTURE, URINE Microbiology Routine Dysuria 08/19/2024 11:47 AM EST [facility] BACTERIAL VAGINOSIS NAAT BACTERI AL VAGINOSIS NAAT Lab Routine Vaginal itching 08/19/2024 11:47 AM [facility] BASSEM/TRICHOMONAS NAAT BASSEM /TRICHOMONAS NAAT Lab Routine Vaginal itching 08/19/2024 11:47 AM [facility] Chiropractic manipulation [facility] Chlamydia trachomatis+Neisseria gonorrhoeae DNA [Presence] in Unspecified specimen by BARRY with probe detection GC/CHLAMYDIA DNA DET Lab Routine Encounter for supervision of normal first in first trimester 08/07/2022 11:30 AM EST [facility] Work Phone: Chlamydia trachomatis+Neisseria gonorrhoeae DNA [Presence] in Unspecified specimen by BARRY with probe detection GONORRHEA/CHLAMYDIA NAAT Lab Routine Encounter for supervision of other normal in first trimester 06/16/2024 1:43 PM EST [facility] ECG COMPLETE ECG COMPLETE ECG Routine Encounter for supervision of other normal in second trimester Ordered: 08/19/2024 [facility] Work Phone: Comment on above: Ordered: 08/19/2024 OUTSIDE VENDOR CARDI AC OUTPATIENT EXTENDED RHYTHM RECORDING (WITHOUT TELEMETRY) OUTSIDE VENDOR CARDIAC OUTPATIENT EXTENDED RHYTHM RECORDING (WITHOUT TELEMETRY) Holter Routine Encounter for supervision of other normal in second trimester Ordered: 08/19/2024 [facility] Comment on above: Ordered: 08/19/2024 PAP TEST PAP TEST Lab Lina ferrer Encounter for gynecological examination (general) (routine) without abnormal findings Screening for cervical cancer Encounter for screening for human papillomavirus (HPV) 04/17/2024 11:00 AM EDT [facility] Work Phone: Patient Education [facility] Work Phone: Patient referral [facility] Work Phone: ROUTINE, GR OUP B STREPTOCOCCUS BY PCR ROUTINE, GROUP B STREPTOCOCCUS BY PCR Microbiology Routine Encounter for supervision of other normal in third trimester (HCC) Palpitations Nausea and vomiting during (HCC) Family history of Higuera syndrome Anxiety 36 weeks gestation of (HCC) 01/08/2025 10:05 AM EDT [facility] Work Phone: XR Cervical spine 2 or 3 Views [facility] Work Phone: [facility] Immunizations Immunization Date Immunization Notes Care Provider Fa pio 11-11-2024 tetanus toxoid, redu mac diphtheria toxoid, and acellular pertussis vaccine, adsorbed Jose England MD Work Phone: [facility] 05-15-2024 influenza, seasonal, injectable, preservative free Rama Jacob MD Work Phone: [facility] 05-15-2024 influenza virus vaccine, unspecified formulation Marlen Vu MA [facility] 05-10-2023 influenza, injectabl e, quadrivalent, preservative free Dr. Yousif Hagan Work Phone: [facility] 05-10-2023 influenza virus vaccine, unspecified formulation Brandt Kohler PT Work Phone: [facility] 12-04-2022 tetanus toxoid, redu mac diphtheria toxoid, and acellular pertussis vaccine, adsorbed Krissy Galvan APRN.CNM Work Phone: [facility] 05-29-2022 influenza, injectabl e, quadrivalent, preservative free Dr. Yousif Hagan Work Phone: [facility] 05-29-2022 influenza, seasonal, injectable Dr. Yousif Hagan Work Phone: [facility] 05-29-2022 influenza virus vaccine, unspecified formulation Machelle Weems APRN.CNNacho Work Phone: [facility] 05-05-2021 influenza, injectabl e, quadrivalent, preservative free Dr. Yousif Hagan Work Phone: [facility] 05-05-2021 influenza, seasonal, injectable Dr. Yousif Hagan Work Phone: [facility] 05-10-2020 influenza, injectabl e, quadrivalent, preservative free Dr. Yousif Hagan Work Phone: [facility] 05-10-2020 influenza, seasonal, injectable Dr. Yousif Hagan Work Phone: [facility] 12-26-2018 tetanus toxoid, redu mac diphtheria toxoid, and acellular pertussis vaccine, adsorbed Dr. Yousif Hagan Work Phone: [facility] Work Phone: 12-01-2015 tuberculin skin test ; purified protein derivative solution, intradermal Jacki Knapp MD Work Phone: [facility] 11-23-2015 tuberculin skin test ; purified protein derivative solution, intradermal Jacki Knapp MD Work Phone: [facility] 11-23-2015 varicella virus vaccine Sonu Knapp MD Work Phone: [facility] Work Phone: 01-01-2015 tuberculin skin test ; purified protein derivative solution, intradermal Jacki Knapp MD Work Phone: [facility] 05-20-2014 human papilloma viru s vaccine, quadrivalent Jacki Knapp MD Work Phone: [facility] 05-20-2014 influenza, injectabl e, quadrivalent, preservative free Jacki Knapp MD Work Phone: [facility] 10-29-2013 human papilloma viru s vaccine, quadrivalent Jacki Knapp MD Work Phone: [facility] Work Phone: 08-26-2013 human papilloma viru s vaccine, quadrivalent Jacki Knapp MD Work Phone: [facility] Work Phone: 08-26-2013 Meningococcal, MCV4, unspecified conjugate formulation(groups A, C, Y and W-135) Jacki Knapp MD Work Phone: [facility] Work Phone: 01-14-2009 Meningococcal, MCV4, unspecified conjugate formulation(groups A, C, Y and W-135) Jacki Knapp MD Work Phone: [facility] Work Phone: 01-14-2009 tetanus toxoid, redu mac diphtheria toxoid, and acellular pertussis vaccine, adsorbed Jacki Knapp MD Work Phone: [facility] Work Phone: 06-04-2006 influenza virus vaccine, unspecified formulation Jacki Knapp MD Work Phone: [facility] Work Phone: 06-20-2005 influenza virus vaccine, unspecified formulation Jacki Knapp MD Work Phone: [facility] Work Phone: 06-28-2002 influenza virus vaccine, unspecified formulation Jacki Knapp MD Work Phone: [facility] Work Phone: 12-30-2001 diphtheria, tetanus toxoids and acellular pertussis vaccine Jacki Knapp MD Work Phone: [facility] Work Phone: 12-30-2001 measles, mumps and rubella virus vaccine Jacki Knapp MD Work Phone: [facility] Work Phone: 12-30-2001 poliovirus vaccine, inactivated Jacki Knapp MD Work Phone: [facility] Work Phone: 06-22-1999 Chicken Pox (disease) Jacki Knapp MD Work Phone: [facility] Work Phone: 06-16-1998 influenza virus vaccine, unspecified formulation Jacki Knapp MD Work Phone: [facility] Work Phone: 05-04-1998 diphtheria, tetanus toxoids and acellular pertussis vaccine Jacki Knapp MD Work Phone: [facility] Work Phone: 05-04-1998 haemophilus influenz ae type b vaccine, HbOC conjugate Jacki Knapp MD Work Phone: [facility] Work Phone: 05-04-1998 influenza virus vaccine, unspecified formulation Jacki Knapp MD Work Phone: [facility] Work Phone: 05-04-1998 trivalent poliovirus vaccine, live, oral Jacki Knapp MD Work Phone: [facility] Work Phone: 02-01-1998 measles, mumps and rubella virus vaccine Jacki Knapp MD Work Phone: [facility] Work Phone: 02-01-1998 varicella virus vaccine Sonu Knapp MD Work Phone: [facility] Work Phone: 1997 diphtheria, tetanus toxoids and acellular pertussis vaccine Jacki Knapp MD Work Phone: [facility] Work Phone: 1997 haemophilus influenz ae type b vaccine, HbOC conjugate Jacki Knapp MD Work Phone: [facility] Work Phone: 1997 hepatitis B vaccine, pediatric or pediatric/adolescent dosage Jacki Knapp MD Work Phone: [facility] Work Phone: 1997 diphtheria, tetanus toxoids and acellular pertussis vaccine Jacki Knapp MD Work Phone: [facility] Work Phone: 1997 haemophilus influenz ae type b vaccine, HbOC conjugate Jacki Knapp MD Work Phone: [facility] Work Phone: 1997 poliovirus vaccine, inactivated Jacki Knapp MD Work Phone: [facility] Work Phone: 1997 diphtheria, tetanus toxoids and acellular pertussis vaccine Jacki Knapp MD Work Phone: [facility] Work Phone: 1997 haemophilus influenz ae type b vaccine, HbOC conjugate Jacki Knapp MD Work Phone: [facility] Work Phone: 1997 poliovirus vaccine, inactivated Jacki Knapp MD Work Phone: [facility] Work Phone: 1997 hepatitis B vaccine, pediatric or pediatric/adolescent dosage Jacki Knapp MD Work Phone: [facility] Work Phone: 1997 hepatitis B vaccine, pediatric or pediatric/adolescent dosage Jacki Knapp MD Work Phone: [facility] Work Phone: Payers Date Payer Category Payer Self-pay [id number] [id number] [id number] 2023 Unknown [id number] 2022 Private Health Insurance [id number] 2021 Unknown MMO MMO TPA [id number] 2021-Present [address] [place] [address] PPO [id number] 2007 Unknown [id number] Unknown [id number] Unknown [facility] [id number] Unknown [id number] 62 Unknown [id number] 62 Unknown [id number] 62 Unknown [id number] 62 Unknown [id number] 62 Unknown [id number] 62 Unknown [id number] 62 Unknown [id number] 62 Unknown [id number] 62 Unknown [id number] [id number] 62 Unknown [id number] 62 Unknown [id number] 62 Unknown [id number] [id number] 62 Unknown [id number] [id number] 62 Unknown [id number] [id number] 62 Unknown [id number] 62 Unknown [id number] 62 Social History Date Type Detail Facility Unknown if ever smoked [facility] Start: 04-19-2022 End: 07-05-2023 Tobacco smoking status NHIS Unknown if ever smoked [facility] Start: 1997 Sex Assigned At Female W [facility] Start: 01-11-2015 End: 10-29-2023 Tobacco smoking status NHIS Never smoked tobacco [facility] Start: 01-11-2015 Tobacco use and exposure Smokeless tobacco non-user [facility] Start: 08-24-2021 End: 11-26-2023 Alcohol intake Current non-drinker of alcohol (finding) [facility] Start: 1995 Sex Assigned At Not on file [facility] Start: 07-05-2022 Education 17 [facility] Start: 06-10-2021 [facility] Start: 11-22-2022 End: 02-14-2023 History of Social function [facility] Start: 11-22-2022 End: 02-14-2023 Tobacco use panel [facility] National Score (1-10 0), lower number is lower risk 60 [facility] The thought of brannon humphrey myself has occurred to me Never [facility] Start: 04-17-2024 End: 01-29-2025 Alcoholic beverage intake Current drinker of alcohol (finding) [facility] Start: 04-17-2024 Alcohol Comment socially [facility] Has the [employer], [email or web address], [employer], or water [employer] threatened to shut off services in your home in past 12Mo No [facility] Are you now , , , , never or living with a partner? [facility] How often to you hav e a drink containing alcohol? 2-4 times a month [facility] How many standard drinks containing alcohol do you have on a typical day? 1 or 2 [facility] Do you feel stress - tense, restless, nervous, or anxious, or unable to sleep at night because your mind is troubled all the time - these days [OSQ] Only a little [facility] (I/We) worried wheth er (my/our) food would run out before (I/we) got money to buy more. Never true [facility] Goals Date Patient Goal Desired Activity /State Personal health goal Personal health goal Functional Status Date Assessment Result Facility 01-11-2015 Are you deaf, or do you have serious difficulty hearing No 01/11/2015 6:09 PM EDT Fifi Parham LPN [facility] 01-11-2015 Are you blind, or do you have serious difficulty seeing, even when wearing glasses No 01/11/2015 6:09 PM EDT Fifi Parham LPN No [facility] 01-11-2015 Do you have serious difficulty walking or climbing stairs No 01/11/2015 6:09 PM EDT Fifi Parham LPN [facility] 01-11-2015 Do you have difficul ty dressing or bathing No 01/11/2015 6:09 PM EDT Fifi Parham LPN [facility] 01-11-2015 Because of a physica l, mental, or emotional condition, do you have difficulty doing errands alone such as visiting a physician's office or shopping No 01/11/2015 6:09 PM EDT Fifi Parham LPN [facility] Mental Status Date Assessment Result Facility 01-11-2015 Because of a physica l, mental, or emotional condition, do you have serious difficulty concentrating, remembering, or making decisions No 01/11/2015 6:09 PM EDT Fifi Parham LPN [facility] Clinical Notes 05-01-2013 to 01-29-2025 Quick Notes - Machelle Weems APRN.[facility]LY [facility], 1928–1983 01/29/2025 10:34 AM EDTPrenatal Quick Notes - Machelle Weems APRN.[facility], 1926–[facility] 01/29/2025 10:34 AM EDTPatient InstructionsPatient Instructions Note Date & Type Note Facility 01-29-2025 Progress note Formatting of t his note might be different from the original. S: Melany Mace is a 30 year old female who presents as an add on for cervical exam. Reports irregular contractions and passing mucus. Positive movements. Denies headache, visual changes, chest pain, shortness of breath, vaginal bleeding, leakage of fluid, or dysuria. O: See flow sheet Gen: No apparent distress Abd: Gravid, non tender CE / ASSESSMENT/PLAN: 1. Encounter for supervision of other normal in third trimester 2. History of asthma 3. 39 weeks gestation of 4. Palpitations 5. Depression affecting 6. Anxiety - Voicing frustrations over not going into spontaneous labor - support provided - Currently working and requesting CE after shift ends today - Labor precautions reviewed - RTO today and if undelivered - 1 week Machelle Weems APRN.CNM [facility] 01-29-2025 Miscellaneous Notes Formattin g of this note might be different from the original. S: Melany Mace is a 30 year old female who presents as an add on for cervical exam. Reports irregular contractions and passing mucus. Positive movements. Denies headache, visual changes, chest pain, shortness of breath, vaginal bleeding, leakage of fluid, or dysuria. O: See flow sheet Gen: No apparent distress Abd: Gravid, non tender CE / ASSESSMENT/PLAN: 1. Encounter for supervision of other normal in third trimester 2. History of asthma 3. 39 weeks gestation of 4. Palpitations 5. Depression affecting 6. Anxiety - Voicing frustrations over not going into spontaneous labor - support provided - Currently working and requesting CE after shift ends today - Labor precautions reviewed - RTO today and if undelivered - 1 week Machelle Weems APRN.CNM documented in this encounter [facility] 01-29-2025 Romaine Fontaine MA - 01/29/2025 9:28 AM EDT SEQUENTIAL SCREENINGS The [facility] offers sequential screenings for women who are [...] It will require an appointment with our bioinformatics technician. This is not an ultrasound performed [...] the above symptoms, contact our office at [phone] and ask to speak with a nurse. After hours, you can call doctors registry at [phone] OR call [facility] at [phone] and ask to have the doctor senior python developer paged. If you consider this an emergency, dial 7--2 or go to your nearest emergency department. NEED HELP? Are you dealing with a violent or abusive relationship? Are you a victim of rape or sexual assult? Call [facility] ([place]) 24 hour Crisis Hotline: 510.255.7462 or 014-637-3152. MANUAL Your Guide to a Healthy manual is now on-line. Visit [email or web address] to download your free copy documented in this encounter [facility] 01-28-2025 Telephone encount er Note Agree with advice. [facility] Work Phone: 01-28-2025 Miscellaneous Notes Formattin g of this note might be different from the original. Agree with advice. 39w3d StepLeader approached this RN stating Pt, whom is a friend of hers, had some questions about her visit yesterday; therefore, this RN reached out to Pt to answer questions. Pt seen 01/26/25 JG stripped -after light pink spotting off and on & 01/28/25 DM (Pt states was stretched to 3cm & stripped- last night started with dark red/ stringy/mucousy/ bloody after wiping (not dripping, wearing pad, but Pt states does not come out unless sitting down on toilet). Active FM/Denies LOF. [place] some pressure around 1030 pm went to sleep-slept decently. Contractions today not as strong as last night. No pressure today. Pt advised to stay hydrated, rest as much as able, continue to wear pad and monitor for increased amt & to call office if heavy bleeding (filling pad qhr for more than 2hrs)/severe abdominal pain-but did inform Pt that this sounds more like bloody show & like her body is just preparing for what is about to come, encouraged her to take tylenol 1,000mg if she feels she needs it as needed, and to call office with any further questions/concerns. Pt voiced understanding. Anna Nesbitt RN documented in this encounter [facility] 01-28-2025 Telephone encount er Note 39w3d [employer] approached this RN stating Pt, whom is a friend of hers, had some questions about her visit yesterday; therefore, this RN reached out to Pt to answer questions. Pt seen 01/26/25 JG stripped -after light pink spotting off and on & 01/28/25 DM (Pt states was stretched to 3cm & stripped- last night started with dark red/ stringy/mucousy/ bloody after wiping (not dripping, wearing pad, but Pt states does not come out unless sitting down on toilet). Active FM/Denies LOF. [place] some pressure around 1030 pm went to sleep-slept decently. Contractions today not as strong as last night. No pressure today. Pt advised to stay hydrated, rest as much as able, continue to wear pad and monitor for increased amt & to call office if heavy bleeding (filling pad qhr for more than 2hrs)/severe abdominal pain-but did inform Pt that this sounds more like bloody show & like her body is just preparing for what is about to come, encouraged her to take tylenol 1,000mg if she feels she needs it as needed, and to call office with any further questions/concerns. Pt voiced understanding. Anna Nesbitt, RN [facility] 2025 Note HNO ID: [id number] Author: RAMA JACOB MD Service: ? Author Type: Physician Type: Progress Notes Filed: 2025 14:33 Note Text: NST SUMMARY PROVIDER ASSESSMENT AND INTERPRETATION Indications for NST: Decreased Movement Baseline: 125 Variability: Moderate Accelerations: Present 15 X 15 Decelerations: None Interpretation: Reactive SIGNATURE: Rama Jacob MD [facility] 2025 History of Presen t illness Narrative NST SUMMARY PROVIDER ASSESSMENT AND INTERPRETATION Indications for NST: Decreased Movement Baseline: 125 Variability: Moderate Accelerations: Present 15 X 15 Decelerations: None Interpretation: Reactive SIGNATURE: Raam Jacob MD documented in this encounter [facility] 2025 Progress note Formatting of t his note might be different from the original. S: Melany Mace is a 30 year old female who presents at 02/01/2025, by Ultrasound for a routine visit. Denies headache, visual changes, chest pain, shortness of breath, vaginal bleeding, leakage of fluid, or dysuria. Feeling well, no complaints. No contractions O: See flow sheet Gen: No apparent distress Abd: Gravid, nontender SENSITIVE EXAMINATION CONSENT: The sensitive examination was discussed with the Patient or Patient's Authorized Circuit Board Drafter. As applicable, any other physician, advance practice provider, medical student, or other health professional student that will be observing or involved in the sensitive examination for educational or training purposes was discussed with the Patient or Authorized Circuit Board Drafter. The Patient or Authorized Circuit Board Drafter has agreed to proceed with the sensitive examination. Decreased movement - reactive NST ASSESSMENT/PLAN: 1. Encounter for supervision of other normal in third trimester (HCC) - ICD9: V22.1, ICD10: Z34.83 (primary diagnosis) - URINE OB DIP B/O 2. History of depression - ICD9: V13.29, V11.8, ICD10: Z87.59, Z86.59 - URINE OB DIP B/O 3. History of asthma - ICD9: V12.69, ICD10: Z87.09 - URINE OB DIP B/O 4. 39 weeks gestation of (HCC) - ICD9: V22.2, ICD10: Z3A.39 - URINE OB DIP B/O Rama Jacob MD [facility] 2025 Miscellaneous Notes Formattin g of this note might be different from the original. S: Melany Mace is a 30 year old female who presents at 02/01/2025, by Ultrasound for a routine visit. Denies headache, visual changes, chest pain, shortness of breath, vaginal bleeding, leakage of fluid, or dysuria. Feeling well, no complaints. No contractions O: See flow sheet Gen: No apparent distress Abd: Gravid, nontender SENSITIVE EXAMINATION CONSENT: The sensitive examination was discussed with the Patient or Patient's Authorized Circuit Board Drafter. As applicable, any other physician, advance practice provider, medical student, or other health professional student that will be observing or involved in the sensitive examination for educational or training purposes was discussed with the Patient or Authorized Circuit Board Drafter. The Patient or Authorized Circuit Board Drafter has agreed to proceed with the sensitive examination. Decreased movement - reactive NST ASSESSMENT/PLAN: 1. Encounter for supervision of other normal in third trimester (HCC) - ICD9: V22.1, ICD10: Z34.83 (primary diagnosis) - URINE OB DIP B/O 2. History of depression - ICD9: V13.29, V11.8, ICD10: Z87.59, Z86.59 - URINE OB DIP B/O 3. History of asthma - ICD9: V12.69, ICD10: Z87.09 - URINE OB DIP B/O 4. 39 weeks gestation of (HCC) - ICD9: V22.2, ICD10: Z3A.39 - URINE OB DIP B/O Rama Jacob MD documented in this encounter [facility] 2025 Instructions Romaine Worthy MA - 2025 1:59 PM EDT SEQUENTIAL SCREENINGS The [facility] offers sequential screenings for women who are [...] It will require an appointment with our bioinformatics technician. This is not an ultrasound performed [...] the above symptoms, contact our office at [phone] and ask to speak with a nurse. After hours, you can call doctors registry at [phone] OR call [facility] at [phone] and ask to have the doctor senior python developer paged. If you consider this an emergency, dial 9-1-2 or go to your nearest emergency department. NEED HELP? Are you dealing with a violent or abusive relationship? Are you a victim of rape or sexual assult? Call [facility] ([place]) 24 hour Crisis Hotline: 432.297.1343 or 869-499-1625. MANUAL Your Guide to a Healthy manual is now on-line. Visit [email or web address] to download your free copy documented in this encounter [facility] 01-22-2025 Progress note Formatting of t his note might be different from the original. S: Melany Mace is a 29 year old female who presents at 02/01/2025, by Ultrasound for a routine visit. Denies headache, visual changes, chest pain, shortness of breath, vaginal bleeding, leakage of fluid, or dysuria. Feeling well, no complaints. Good movement, No contractions O: See flow sheet Gen: No apparent distress Abd: Gravid, nontender 1.5/50/-2 ASSESSMENT/PLAN: 1. Encounter for supervision of other normal in third trimester ([facility]) - ICD9: V22.1, ICD10: Z34.83 (primary diagnosis) - URINE OB DIP B/O 2. 38 weeks gestation of ([facility]) - ICD9: V22.2, ICD10: Z3A.38 - URINE OB DIP B/O Rama Jacob MD [facility] 01-22-2025 Miscellaneous Notes Formattin g of this note might be different from the original. S: Melany Mace is a 29 year old female who presents at 02/01/2025, by Ultrasound for a routine visit. Denies headache, visual changes, chest pain, shortness of breath, vaginal bleeding, leakage of fluid, or dysuria. Feeling well, no complaints. Good movement, No contractions O: See flow sheet Gen: No apparent distress Abd: Gravid, nontender 1.5/50/-2 ASSESSMENT/PLAN: 1. Encounter for supervision of other normal in third trimester ([facility]) - ICD9: V22.1, ICD10: Z34.83 (primary diagnosis) - URINE OB DIP B/O 2. 38 weeks gestation of ([facility]) - ICD9: V22.2, ICD10: Z3A.38 - URINE OB DIP B/O Rama Jacob MD documented in this encounter [facility] 01-22-2025 Instructions Milly Vega MA - 01/22/2025 12:13 PM EDT SEQUENTIAL SCREENINGS The [facility] offers sequential screenings for women who are [...] It will require an appointment with our bioinformatics technician. This is not an ultrasound performed [...] the above symptoms, contact our office at [phone] and ask to speak with a nurse. After hours, you can call doctors registry at [phone] OR call [facility] at [phone] and ask to have the doctor senior python developer paged. If you consider this an emergency, dial 9-1-4 or go to your nearest emergency department. NEED HELP? Are you dealing with a violent or abusive relationship? Are you a victim of rape or sexual assult? Call [facility] ([place]) 24 hour Crisis Hotline: 622.773.9421 or 200-941-0311. MANUAL Your Guide to a Healthy manual is now on-line. Visit [email or web address] to download your free copy documented in this encounter [facility] 01-20-2025 Note HNO ID: [id number] Author: MARLEN VU MA Service: ? Author Type: Methods Time Analyst Type: Progress Notes Filed: 01/20/2025 14:41 Note Text: POPULATION HEALTH NAVIGATION OUTREACH Action/FYI Sheet Rocker updated per documentation. Reason for Outreach Medicaid OB/Peds Care Gaps due: N/A Patient Contacted: Unable or unnecessary to reach patient: [place] horticulture/floriculture teacher added Navigation Signature: Marlen Garcia MA January 20, 2025 1:41 PM [facility] 01-20-2025 History of Presen t illness Narrative POPULATION HEALTH NAVIGATION OUTREACH Action/FYI Sheet Rocker updated per documentation. Reason for Outreach Medicaid OB/Peds Care Gaps due: N/A Patient Contacted: Unable or unnecessary to reach patient: horticulture/floriculture teacher added Navigation Signature: Marlen Garcia MA January 20, 2025 1:41 PM documented in this encounter [facility] 01-20-2025 Note Patient Outreach (NE TNAV) MELANY MACE ([id number]) 1995 [facility] Date Time Provider Department 01/20/25 MARLEN VU During your visit today, we recorded the following information about you: Marlen Vu MA 01/20/2025 2:41 PM Signed POPULATION HEALTH NAVIGATION OUTREACH Action/FYI Sheet Rocker updated per documentation. 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 - loratadine (CLARITIN) 10 mg tablet Take 10 mg by mouth once daily. - magnesium aspart,citrate,oxide 400 mg magnesium cap Take by mouth. - ergocalciferol, vitamin D2, (VITAMIN D2 ORAL) Take 2,000 Units by mouth once daily. - promethazine (PHENERGAN) 12.5 mg tablet Take 1-2 tablets by mouth every 6 hours as needed for nausea/vomiting. - sertraline (ZOLOFT) 25 mg tablet Take 1 tablet by mouth once daily. - prental multivitamin 27 mg iron- 800 mcg tablet Take 1 tablet by mouth once daily. Problem List As Of Date 01/20/2025 Noted Resolved Back strain [S39.012A] 02/10/2013 10/24/2014 Mild concussion [S06.0XAA] 05/01/2013 10/24/2014 Mononucleosis [B27.90] 10/24/2014 06/16/2024 Erythema nodosum [L52] 12/31/2014 Family history of [place] syndrome [Z82.79] 07/05/2022 Nausea and vomiting during [O21.9] 08/07/2022 Encounter for supervision of normal first pregn*10/27/2022 Positive GBS test [B95.1] 02/07/2023 06/16/2024 Supervision of normal (HCC) [Z34.90] 06/16/2024 11/11/2024 History of depression [Z87.59, Z86.5*06/16/2024 Anxiety [F41.9] 06/16/2024 Heartburn during in second trimester *07/21/2024 History of asthma [Z87.09] Depression affecting [O99.340, F32.A] 08/19/2024 Palpitations [R00.2] 08/19/2024 Encounter Status:Closed by MARLEN VU on 01/20/25 [facility] 01-19-2025 Progress note [facility] 01-19-2025 Progress note Note Date/Time January 19, 2025 9:48am [facility] [address] [place] [id number] OFFICE VISIT Date of Service: 01/19/25 MR#: [id number] Acct: [id number] Name: MELANY MACE Rep #: [id number] : 1995 Provider: EDUARD Aquino Age/Sex: 29/F Location: [facility] Status: Signed Intake Vital Signs 04/20/23 10:30 Height 5 ft 4 in Intake Visit Reasons: ADJUSTMENT Chief Complaint: low back, pelvis, tailbone pain Is patient in pain?: Yes (pelvis, hips, tailbone) Pain scale (1-10): 5 Allergies mold Allergy (Verified 01/19/25 09:16) unknown ragweed pollen Allergy (Verified 01/19/25 09:16) unknown Medications ?Medication ?Instructions ?Recorded ?Confirmed ?Type mv-mn no.97-folic 180 mcg-dha 25 1 tab PO DAILY pregna n 04/19/22 01/19/25 History mg-herb no.293 25 mg chewable tablet (Alive Daily Support ) loratadine 10 mg tablet (Allergy 10 mg PO DAILY 01/19/25 History Relief (loratadine)) sertraline 25 mg tablet 25 mg PO QDAY 12/24/2301/19 History PFSH Medical History Elevated liver enzymes Laceration, obstetrical, second degree Care and examination of lactating mother (spontaneous vaginal delivery) Encounter for elective induction of labor 39 weeks gestation of Shortness of breath Palpitations Chronic neck pain Preventative health care Menstrual irregularity Other vitreous opacities, bilateral Urinary frequency Seasonal allergies Back pain Persistent headaches Surgical History H/O wisdom tooth extraction Family History Grandmother Cancer lung CVA (cerebral vascular accident) Grandfather Cancer pancreatic Father Heart disease Hypertension Hyperlipidemia Grandfather Heart disease CVA (cerebral vascular accident) Social History Smoking Status: Never smoker alcohol intake: never substance use type: does not use caffeine: Yes (Occasionally) Type: coffee what type of physical activity do you participate in: walking frequency: 3-4 times per week HPI ADJUSTMENT Chief Complaint: Back pain Visit Number: 9 Details: Melany is a 29 year old female who is here for adjustment. Pt. advises she is currently 38 weeks . Pt. continues to c/o pelvis, hips and tailbone pain and pressure. She states it fluctuates from right to left depending on baby's position. She alos continues experience bilateral hand numbness at night when she is sleeping but denies neck pain. She rates her tailbone pain a constant 3-4/10 but increases to 6/10 at times. She continues towear a belly band for extra support but complains of hip and pelvic pain and pressure. She states walking/ weight bearing contribute to her low back pain. Her neck and upper back get sore at times. She denies new injury, numbness or tingling. She treats pain at home with heat, stretching and rubber ball massage.Melany reports chiropractic adjustments are helpful in relieving her discomfort but it gradually returns. Location: neck and low back Duration: frequent Aggravating or associated factors: work posture, caring for child/ Relieving factors: chiro Pain Quality: aching and dull Exam Musc General: Yes normal gait, joint tenderness and decreased range of motion; No normal posture or muscle weakness Cervical Spine: Yes loss of normal cervical lordosis (left curve), Yes cervical muscular tenderness bilateral lower , Yes cervical spasm right lower trapezius and paracervical muscles and Yes misalignment misalignment: C5, C6 and C7 Thoracic/Lumber: Yes thoracic and lumbar spine normal to inspection, Yes paraspinal tenderness bilaterally in the mid lumbar and in the lower lumbar and on the right greater than left (midthoracic), Yes scoliosis (left cervicothoracic), Yes thoraco-lumbar spasm on the right greater than left (rhomboid, piriformis) and on the left greater than right (upper trap, QL) and Yes misalignment T2, T3, T5, T6, T7, L3, L4, L5, RIL and LIL Sacrum: Yes tenderness bilaterally and Yes misalignment (left) Yes Office Procedures Procedures - Chiropractic Procedures Manipulation: Cervical C6, Lumbar L4, Sacrum (left) and Thoracic T2 and T5 Manipulation: 3-4 regions Patient Response: positive Assessment and Plan Assessment and Plan (1) Segmental and somatic dysfunction of cervical region: Status: Acute (2) Scoliosis: Status: Chronic Qualifiers: Idiopathic scoliosis type: other Scoliosis type: idiopathic Spinal region: cervicothoracic Qualified Code(s): M41.23 - Other idiopathic scoliosis,cervicothoracic region Comment: L cervicothoracic (3) Segmental and somatic dysfunction of thoracic region: Status: Acute (4) Segmental and somatic dysfunction of lumbar region: Status: Acute (5) Segmental and somatic dysfunction of sacral region: Status: Acute Orders: Orders Chiropractic Treatments Today M41.23 - Other idiopathic scoliosis, cervicothoracic region, M99.01 - Segmental and somatic dysfunction of cervical region, M99.02 - Segmental and somatic dysfunction of thoracic region, M99.03 - Segmental and somatic dysfunction of lumbar region, M99.04 - Segmental and somatic dysfunction of sacral region, M99.05 - Segmental and somatic dysfunctionof pelvic region Plan Patient was treated without incident. Continue care in 1 week. Plan Details Goals & Barriers: Goals Decrease HAs Decrease spasm Improve workability Decrease pain Barriers Scoliosis Follow Up: 1 wk Coding Level of Care Code No Charge Diagnoses Segmental and somatic dysfunction of cervical region M99.01 Other idiopathic scoliosis, cervicothoracic region M41.23 Idiopathic scoliosis type: other Scoliosis type: idiopathic Spinal region: cervicothoracic Segmental and somatic dysfunction of thoracic region M99.02 Segmental and somatic dysfunction of lumbar region M99.03 Segmental and somatic dysfunction of sacral region M99.04 CPT Codes Procedures - Manipulation: 3-4 regions ([id number]) 01/19/25 0948 <Electronically signed by Enid Erickson> Date _ Enid Aquino D.C. Cosigner Signature: Date (if applicable) CC: ~ [place] [employer] Work Phone: 1(314) 996-439606-26-2025 Progress note* Quick Notes - Sofy Bradshaw MD - 01/15/2025 9:27 AM EDT SW- Irregular ctx's. No vb, lof. Good FM PE: Gen- NAD, well appearing Abd- Soft, gravid, NT, S=D See flowsheet A/p 37 wk gestation - GBS negative - She is considering elective IOL - Rto 1 wk Sofy Bradshaw DO [facility]06-26-2025 Miscellaneous Notes* Quick Notes - Sofy Bradshaw MD - 01/15/2025 9:27 AM EDT SW- Irregular ctx's. No vb, lof. Good FM PE: Gen- NAD, well appearing Abd- Soft, gravid, NT, S=D See flowsheet A/p 37 wk gestation - GBS negative - She is considering elective IOL - Rto 1 wk Sofy Bradshaw DO documented in this encounterTr[facility]06-[facility]-2025 Instructions* Patient Instructions* Marlen Rose MA - 01/15/2025 9:02 AM EDT SEQUENTIAL SCREENINGS The [facility] offers sequential screenings for women who are interested in screenings for chromosomal abnormalities and certain defects during a . The sequential screen combinesultrasound and blood tests to determine the risk [...] this testing. It will require an appointment withour bioinformatics technician. This is not an ultrasound performed [...] the above symptoms, contact our office at [phone] and ask to speak with anurse. After hours, you can call [facility] at [phone] OR call [facility] at [phone] ask to have the doctor senior python developer paged. If you consider this an emergency, dial 9-1-1 or go to your nearest emergency department. NEED HELP? Are you dealing with a violent or abusive relationship? Are you a victim of rape or sexual assult? Call [facility] ([place]) 24 hour Crisis Hotline: 183.825.3276 or 522-960-8690. MANUAL Your Guide to a Healthy manual is now on-line. Visit [email or web address] to download your free copy documented in this encounterTrinity [facility] System06-19-2025 Progress note* Quick Notes - Machelle Weems APRN.CNM - 01/08/2025 9:53 AM EDT S: Melany Mace is a 29 year old female who presents at 36 weeks gestation for a routine visit. Positive movements. Occasional contractions that resolve on own. Denies headache, visual changes, chest pain, shortness of breath, vaginal bleeding, leakage of fluid, or dysuria. Feeling well,no complaints. O: See flow sheet Gen: No apparent distress Abd: Gravid, nontender TAUS- confirms vertex ASSESSMENT/PLAN: 1. Encounter for supervision of other normal in third trimester 2. Palpitations 3. Nausea and vomiting during 4. Family history of Higuera syndrome 5. Anxiety - 6. 36 weeks gestation of - URINE OB DIP B/O - ROUTINE, GROUP B STREPTOCOCCUS BY PCR - Continue Zoloft 25 mg PO daily - Continue Protonix 20 mg XR PO daily- acid reflux improving - PTL precautions reviewed and when to call office - RTO 1 week Machelle Weems APRN.CNM [facility]-19[facility]25 Miscellaneous Notes* Quick Notes - Machelle Weems APRN.CNM - 01/08/2025 9:53 AM EDT S: Melany Mace is a 29 year old female who presents at 36 weeks gestation for a routine visit. Positive movements. Occasional contractions that resolve on own. Denies headache, visual changes, chest pain, shortness of breath, vaginal bleeding, leakage of fluid, or dysuria. Feeling well,no complaints. O: See flow sheet Gen: No apparent distress Abd: Gravid, nontender TAUS- confirms vertex ASSESSMENT/PLAN: 1. Encounter for supervision of other normal in third trimester 2. Palpitations 3. Nausea and vomiting during 4. Family history of Higuera syndrome 5. Anxiety - 6. 36 weeks gestation of - URINE OB DIP B/O - ROUTINE, GROUP B STREPTOCOCCUS BY PCR - Continue Zoloft 25 mg PO daily - Continue Protonix 20 mg XR PO daily- acid reflux improving - PTL precautions reviewed and when to call office - RTO 1 week Machelle Weems APRN.CNM documented in this encounterTrinity [facility] System06-19-2025 Instructions* Patient Instructions* Romaine Worthy MA - 01/08/2025 9:46 AM EDT SEQUENTIAL SCREENINGS The [facility] offers sequential screenings for women who are interested in screenings for chromosomal abnormalities and certain defects during a . The sequential screen combinesultrasound and blood tests to determine the risk [...] this testing. It will require an appointment withour bioinformatics technician. This is not an ultrasound performed [...] the above symptoms, contact our office at [phone] and ask to speak with anurse. After hours, you can call doctors registry at [phone] OR call [facility] at [phone] ask to have the doctor senior python developer paged. If you consider this an emergency, dial 91-6 or go to your nearest emergency department. NEED HELP? Are you dealing with a violent or abusive relationship? Are you a victim of rape or sexual assult? Call [facility] ([place]) 24 hour Crisis Hotline: 141.813.6586 or 935-613-5358. MANUAL Your Guide to a Healthy manual is now on-line. Visit [email or web address] to download your free copy documented in this encounterTrinity Health System06-06-2025 Progress note* Quick Notes - Machelle Weems APRN.CNM - 12/26/2024 10:53 AM EDT S: Melany Mace is a 29 year old female who presents at 34.5 weeks gestation for a routine visit. Positive movements. Continues to have daily nausea with emesis in morning only. Appetite decreased. Feels like she gets full fast. Positive movements. Denies headache, visual changes, chest pain, shortness of breath, vaginal bleeding, leakage of fluid, or dysuria. O: See flow sheet Gen: No apparent distress Abd: Gravid, non tender S=D, TWG 29 lbs ASSESSMENT/PLAN: 1. Encounter for supervision of other normal in third trimester 2. Nausea and vomiting during 3. Palpitations 4. Family history of Higuera syndrome 5. Anxiety 6. 34 weeks gestation of - Continue Protonix 20 mg XR daily - Continue Zoloft 25 mg PO daily - Feels mood is stable at this time - Still in process of obtaining work hour restrictions with HR- has another meeting today - PTL precautions reviewed - RTO 2 weeks for KRISTOPHER with GBS Machelle Weems APRN.CNM [facility]06-06-2025 Miscellaneous Notes* Quick Notes - Machelle Weems APRN.CNM - 12/26/2024 10:53 AM EDT S: Melany Mace is a 29 year old female who presents at 34.5 weeks gestation for a routine visit. Positive movements. Continues to have daily nausea with emesis in morning only. Appetite decreased. Feels like she gets full fast. Positive movements. Denies headache, visual changes, chest pain, shortness of breath, vaginal bleeding, leakage of fluid, or dysuria. O: See flow sheet Gen: No apparent distress Abd: Gravid, non tender S=D, TWG 29 lbs ASSESSMENT/PLAN: 1. Encounter for supervision of other normal in third trimester 2. Nausea and vomiting during 3. Palpitations 4. Family history of Higuera syndrome 5. Anxiety 6. 34 weeks gestation of - Continue Protonix 20 mg XR daily - Continue Zoloft 25 mg PO daily - Feels mood is stable at this time - Still in process of obtaining work hour restrictions with HR- has another meeting today - PTL precautions reviewed - RTO 2 weeks for KRISTOPHER with GBS Machelle Weems APRN.CNM documented in this encounterTr[facility]06-[facility]-2025 Instructions* Patient Instructions* Romaine Worthy MA - 12/26/2024 10:46 AM EDT SEQUENTIAL SCREENINGS The [facility] offers sequential screenings for women who are interested in screenings for chromosomal abnormalities and certain defects during a . The sequential screen combinesultrasound and blood tests to determine the risk [...] this testing. It will require an appointment withour bioinformatics technician. This is not an ultrasound performed [...] the above symptoms, contact our office at [phone] and ask to speak with anurse. After hours, you can call doctors registry at [phone] OR call [facility] at [phone] ask to have the doctor senior python developer paged. If you consider this an emergency, dial 9-1-0 or go to your nearest emergency department. NEED HELP? Are you dealing with a violent or abusive relationship? Are you a victim of rape or sexual assult? Call [facility] ([place]) 24 hour Crisis Hotline: 489.814.8520 or 507-353-0490. MANUAL Your Guide to a Healthy manual is now on-line. Visit [email or web address] to download your free copy documented in this encounterTrinity Health System06-02-2025 Progress [facility] [address] [place] [address] OFFICE VISIT Date of Service: 12/22/24 MR#: [id number] Acct: [id number] Name: MELANY MACE Rep #: [id number] : 1995 Provider: EDUARD Aquino Age/Sex: 29/F [place] [facility] [place]: Signed Intake Vital Signs 04/20/23 10:30 Height 5 ft 4 in Intake Visit Reasons: ADJUSTMENT Chief Complaint: neck and pain Is patient in pain?: Yes (upper back. hips, pelvis) Pain scale (1-10): 4 Allergies mold Allergy (Verified 11/24/24 09:48) unknown ragweed pollen Allergy (Verified 11/24/24 09:48) unknown [facility] Medical History Elevated liver enzymes Laceration, obstetrical, second degree Care and examination of lactating mother (spontaneous vaginal delivery) Encounter for elective induction of labor 39 weeks gestation of Shortness of breath Palpitations Chronic neck pain Preventative health care Menstrual irregularity Other vitreous opacities, bilateral Urinary frequency Seasonal allergies Back pain Persistent headaches Surgical History H/O wisdom tooth extraction Family History Grandmother Cancer lung CVA (cerebral vascular accident) Grandfather Cancer pancreatic Father Heart disease Hypertension Hyperlipidemia Grandfather Heart disease CVA (cerebral vascular accident) Social History Smoking Status: Never smoker alcohol intake: never substance use type: does not use caffeine: Yes (Occasionally) Type: coffee what type of physical activity do you participate in: walking frequency: 3-4 times per week HPI ADJUSTMENT Chief Complaint: upper back, pelvis, hip pain Visit Number: 5 Details: Melany is a 29 year old female who is here for adjustment. Pt. advises she is currently 34weeks . Pt. complains of pain from her neck to her upper back and across her shoulder blades equal bilaterally. She rates her pain 4/10 and states it feels compressed. She states her bilateral SI joints has improved since wearing a belly band. She also complains of hip and pelvic pain and pressure. Her hips have been very painful and they feel out of alignment. She states walking/ weight bearing aggravates her pain as well as long, busy days at work which contribute to her pain. She denies new injury, numbness or tingling. She treats pain at home with heat, stretching and rubber ball m assage.Melany reports chiropractic adjustments are helpful in relieving her discomfort but it gradually returns. Location: neck and low back Duration: frequent Aggravating or associated factors: work posture, caring for child/ Relieving factors: chiro Pain Quality: aching and dull Exam Musc General: Yes normal gait, joint tenderness and decreased range of motion; No normal posture or muscle weakness Cervical Spine: Yes loss of normal cervical lordosis (left curve), Yes cervical muscular tendernessbilateral lower , Yes cervical spasm right upper intrinsics,right lower trapezius and paracervical muscles and Yes misalignment misalignment: C5, C6 and C7 Thoracic/Lumber: Yes thoracic and lumbar spine normal to inspection, Yes paraspinal tenderness bilaterally in the mid lumbar and in the lower lumbar and on the right greater than left (midthoracic), Yes scoliosis (left cervicothoracic), Yes thoraco-lumbar spasm on the right greater than left (rhomboid, piriformis) and on the left greater than right (upper trap, QL) and Yes misalignment T2, T3, T5, T6, T7, L3, L4, L5 and RIL Sacrum: Yes tenderness and Yes misalignment (right) Yes Office Procedures Procedures - Chiropractic Procedures Manipulation: Cervical C6, Lumbar L3, Sacrum (right) and Thoracic T3 and T6 Manipulation: 3-4 regions Patient Response: positive Assessment and Plan Assessment and Plan (1) Segmental and somatic dysfunction of cervical region: Status: Acute (2) Scoliosis: Status: Chronic Qualifiers: Idiopathic scoliosis type: other Scoliosis type: idiopathic Spinal region: cervicothoracic Qualified Code(s): M41.23 - Other idiopathic scoliosis,cervicothoracic region Comment: L cervicothoracic (3) Segmental and somatic dysfunction of thoracic region: Status: Acute (4) Segmental and somatic dysfunction of lumbar region: Status: Acute (5) Segmental and somatic dysfunction of sacral region: Status: Acute Orders: Orders Chiropractic Treatments Today M41.23 - Other idiopathic scoliosis, cervicothoracic region, M99.01 -Segmental and somatic dysfunction of cervical region, M99.02 - Segmental and somatic dysfunction ofthoracic region, M99.03 - Segmental and somatic dysfunction of lumbar region, M99.04 - Segmental and somatic dysfunction of sacral region, M99.05 - Segmental and somatic dysfunctionof pelvic region Plan Patient was treated without incident. Continue care as needed. Plan Details Goals & Barriers: Goals Decrease HAs Decrease spasm Improve workability Decrease pain Barriers Scoliosis Follow Up: 1x/wk until delivery Coding Level of Care Code No Charge Diagnoses Segmental and somatic dysfunction of cervical region M99.01 Other idiopathic scoliosis, cervicothoracic region M41.23 Idiopathic scoliosis type: other Scoliosis type: idiopathic Spinal region: cervicothoracic Segmental and somatic dysfunction of thoracic region M99.02 Segmental and somatic dysfunction of lumbar region M99.03 Segmental and somatic dysfunction of sacral region M99.04 CPT Codes Procedures - Manipulation: 3-4 regions ([id number]) 12/22/24 0923 .C.> Date _ Enid Aquino D.C. Cosign Signature: Date (if applicable) CC: ~ [place] [facility] [id number] Progress note Author Enid Aquino [facility] Services Note Date/Time December 22, 2024 9:23a [facility] [place] [facility] [address] [place] [address] OFFICE VISIT Date of Service: 12/22/24 MR#: [id number] Acct: [id number] Name: MELANY MACE Rep #: [id number] : 1995 Provider: EDUARD Aquino Age/Sex: 29/F [place] [facility] [place]: Signed Intake Vital Signs 04/20/23 10:30 Height 5 ft 4 in Intake Visit Reasons: ADJUSTMENT Chief Complaint: neck and pain Is patient in pain?: Yes (upper back. hips, pelvis) Pain scale (1-10): 4 Allergies mold Allergy (Verified 11/24/24 09:48) unknown ragweed pollen Allergy (Verified 11/24/24 09:48) unknown [facility] Medical History Elevated liver enzymes Laceration, obstetrical, second degree Care and examination of lactating mother (spontaneous vaginal delivery) Encounter for elective induction of labor 39 weeks gestation of Shortness of breath Palpitations Chronic neck pain Preventative health care Menstrual irregularity Other vitreous opacities, bilateral Urinary frequency Seasonal allergies Back pain Persistent headaches Surgical History H/O wisdom tooth extraction Family History Grandmother Cancer lung CVA (cerebral vascular accident) Grandfather Cancer pancreatic Father Heart disease Hypertension Hyperlipidemia Grandfather Heart disease CVA (cerebral vascular accident) Social History Smoking Status: Never smoker alcohol intake: never substance use type: does not use caffeine: Yes (Occasionally) Type: coffee what type of physical activity do you participate in: walking frequency: 3-4 times per week HPI ADJUSTMENT Chief Complaint: upper back, pelvis, hip pain Visit Number: 5 Details: Melany is a 29 year old female who is here for adjustment. Pt. advises she is currently 34 weeks . Pt. complains of pain from her neck to her upper back and across her shoulder blades equal bilaterally. She rates her pain 4/10 and states it feels compressed. She states her bilateral SI joints has improved since wearing a belly band. She also complains of hip and pelvic pain and pressure. Her hips have been very painful and they feel out of alignment. She states walking/ weight bearing aggravates her pain as well as long, busy days at work which contribute to her pain. She denies new injury, numbness or tingling. She treats pain at home with heat, stretching and rubber ball massage.Melany reports chiropractic adjustments are helpful in relieving her discomfort but it gradually returns. Location: neck and low back Duration: frequent Aggravating or associated factors: work posture, caring for child/ Relieving factors: chiro Pain Quality: aching and dull Exam Musc General: Yes normal gait, joint tenderness and decreased range of motion; No normal posture or muscle weakness Cervical Spine: Yes loss of normal cervical lordosis (left curve), Yes cervical muscular tenderness bilateral lower , Yes cervical spasm right upper intrinsics,right lower trapezius and paracervical muscles and Yes misalignment misalignment: C5, C6 and C7 Thoracic/Lumber: Yes thoracic and lumbar spine normal to inspection, Yes paraspinal tenderness bilaterally in the mid lumbar and in the lower lumbar and on the right greater than left (midthoracic), Yes scoliosis (left cervicothoracic), Yes thoraco-lumbar spasm on the right greater than left (rhomboid, piriformis) and on the left greater than right (upper trap, QL) and Yes misalignment T2, T3, T5, T6, T7, L3, L4, L5 and RIL Sacrum: Yes tenderness and Yes misalignment (right) Yes Office Procedures Procedures - Chiropractic Procedures Manipulation: Cervical C6, Lumbar L3, Sacrum (right) and Thoracic T3 and T6 Manipulation: 3-4 regions Patient Response: positive Assessment and Plan Assessment and Plan (1) Segmental and somatic dysfunction of cervical region: Status: Acute (2) Scoliosis: Status: Chronic Qualifiers: Idiopathic scoliosis type: other Scoliosis type: idiopathic Spinal region: cervicothoracic Qualified Code(s): M41.23 - Other idiopathic scoliosis,cervicothoracic region Comment: L cervicothoracic (3) Segmental and somatic dysfunction of thoracic region: Status: Acute (4) Segmental and somatic dysfunction of lumbar region: Status: Acute (5) Segmental and somatic dysfunction of sacral region: Status: Acute Orders: Orders Chiropractic Treatments Today M41.23 - Other idiopathic scoliosis, cervicothoracic region, M99.01 - Segmental and somatic dysfunction of cervical region, M99.02 - Segmental and somatic dysfunction of thoracic region, M99.03 - Segmental and somatic dysfunction of lumbar region, M99.04 - Segmental and somatic dysfunction of sacral region, M99.05 - Segmental and somatic dysfunctionof pelvic region Plan Patient was treated without incident. Continue care as needed. Plan Details Goals & Barriers: Goals Decrease HAs Decrease spasm Improve workability Decrease pain Barriers Scoliosis Follow Up: 1x/wk until delivery Coding Level of Care Code No Charge Diagnoses Segmental and somatic dysfunction of cervical region M99.01 Other idiopathic scoliosis, cervicothoracic region M41.23 Idiopathic scoliosis type: other Scoliosis type: idiopathic Spinal region: cervicothoracic Segmental and somatic dysfunction of thoracic region M99.02 Segmental and somatic dysfunction of lumbar region M99.03 Segmental and somatic dysfunction of sacral region M99.04 CPT Codes Procedures - Manipulation: 3-4 regions ([id number]) 12/22/24 0923 <Electronically signed by Enid Erickson> Date _ Enid Aquino D.C. Cosigner Signature: Date (if applicable) CC: ~ [facility] Work Phone: 1(911) 925-201505-06-2025 Progress note* Quick Notes - Krissy Galvan APRN.CNM - 11/25/2024 10:04 AM EDT CHALO-S: Melany Mace is a 29 year old female who presents at 30w2d with BELTRAN:02/01/2025, by Ultrasound for a routine visit. Denies headache, visual changes, chest pain, shortness of breath, vaginal bleeding, leakage of fluid, or dysuria. Continues to have palpitations especially if increased patients at work and workload. O: See flow sheet Gen: No apparent distress Abd: Gravid, nontender 1. Encounter for supervision of other normal in second trimester -Continue PNV 2. 30 Weeks gestation of 3. Nausea and vomiting during -Still emesis once daily, phenergan as needed 4. Heartburn during in second trimester -Continue Protonix 5. Depression affecting -Continue Zoloft 25mg PO once daily, coping well. 6. History of asthma -No hemabate during delivery 7. Palpitations -Zio patch completed -Cardiology consult and echocardiography -Follow up PP 8.Low T4 -TSH normal, free t4 low RTO in 2 weeks PTL precautions reviewed Krissy Galvan APRN.CNM [facility]05-06-2025 Miscellaneous Notes* Quick Notes - Krissy Galvan APRN.CNM - 11/25/2024 10:04 AM EDT CHALO-S: Melany Mace is a 29 year old female who presents at 30w2d with BELTRAN:02/01/2025, by Ultrasound for a routine visit. Denies headache, visual changes, chest pain, shortness of breath, vaginal bleeding, leakage of fluid, or dysuria. Continues to have palpitations especially if increased patients at work and workload. O: See flow sheet Gen: No apparent distress Abd: Gravid, nontender 1. Encounter for supervision of other normal in second trimester -Continue PNV 2. 30 Weeks gestation of 3. Nausea and vomiting during -Still emesis once daily, phenergan as needed 4. Heartburn during in second trimester -Continue Protonix 5. Depression affecting -Continue Zoloft 25mg PO once daily, coping well. 6. History of asthma -No hemabate during delivery 7. Palpitations -Zio patch completed -Cardiology consult and echocardiography -Follow up PP 8.Low T4 -TSH normal, free t4 low RTO in 2 weeks PTL precautions reviewed Krissy Galvan APRN.CNM documented in this encounterTr[facility]05-[facility]-2025 Instructions* Patient Instructions* Jenae Rose MA - 11/25/2024 9:50 AM EDT SEQUENTIAL SCREENINGS The [facility] offers sequential screenings for women who are interested in screenings for chromosomal abnormalities and certain defects during a . The sequential screen combinesultrasound and blood tests to determine the risk [...] this testing. It will require an appointment withour bioinformatics technician. This is not an ultrasound performed [...] the above symptoms, contact our office at [phone] and ask to speak with anurse. After hours, you can call doctors registry at [phone] OR call [facility] at [phone] ask to have the doctor senior python developer paged. If you consider this an emergency, dial 9-- or go to your nearest emergency department. NEED HELP? Are you dealing with a violent or abusive relationship? Are you a victim of rape or sexual assult? Call [facility] ([place] 24 hour Crisis Hotline: 283.445.9656 or 259-032-0161. MANUAL Your Guide to a Healthy manual is now on-line. Visit [email or web address] to download your free copy documented in this encounterTrinity Health System04-22-2025 Progress note* Quick Notes - Jose England MD - 11/11/2024 9:43 AM EDT KJ - S: Melany denies LOF, contractions or vaginal bleeding. She reports that heart palpitations are stable. O: 28w2d, see flow sheet SENSITIVE EXAM: Sensitive exam not performed. A/P: Assessment & Plan 28 weeks gestation of ([facility]) Encounter for supervision of other normal in third trimester ([facility]) Need for vaccination Palpitations S/p cardiology evaluation - Benign recurrent palpitation likely supraventricular tachycardia Reviewed the Holter monitor the recorded episode is not consistent with [place] We will schedule for echocardiography to rule out any structural heart disease No indication for medical therapy or intervention at this timeikely Ordered Tdap Jose England MD [facility]04-22-2025 Miscellaneous Notes* Quick Notes - Jose England MD - 11/11/2024 9:43 AM EDT KJ - S: Melany denies LOF, contractions or vaginal bleeding. She reports that heart palpitations are stable. O: 28w2d, see flow sheet SENSITIVE EXAM: Sensitive exam not performed. A/P: Assessment & Plan 28 weeks gestation of (HCC) Encounter for supervision of other normal in third trimester ([facility]) Need for vaccination Palpitations S/p cardiology evaluation - Benign recurrent palpitation likely supraventricular tachycardia Reviewed the Holter monitor the recorded episode is not consistent with [place] We will schedule for echocardiography to rule out any structural heart disease No indication for medical therapy or intervention at this timeikely Ordered Tdap Jose England MD documented in this encounterTr[facility]04-[facility]-2025 NoteHNO ID: [id number] Author: MARLEN ROSE MA Service: ? Author Type: Methods Time Analyst Type: Progress Notes Filed: 11/11/2024 10:09 Note Text: Patient identified by name and date of . Melany Mace presents today for a vaccination of Tdap. Patient denies an allergy to latex: yes Patient denies a severe (life-threatening) allergy to a previous dose of Tdap, DTP, DTaP, DT or Td vaccine. Yes Patient denies history of epilepsy or neurological problems: Yes Patient is afebrile and denies being moderately or severely ill: Yes Patient denies history of Guillain-[place] Syndrome (a severe paralytic illness): Yes Tdap Adacel injection was given without incident. See immunizations for details of immunizations administered today. VIS sheet provided: Yes Provider Jose England MD was present in office at time of injection. Marlen Rose [facility]04-22-2025 History of Present illness Narrative* Marlen Rose MA - 11/11/2024 9:21 AM EDT Patient identified by name and date of . Melany Mace presents today for a vaccination of Tdap. Patient denies an allergy to latex: yes Patient denies a severe (life-threatening) allergy to a previous dose of Tdap, DTP, DTaP, DT or Td vaccine. Yes Patient denies history of epilepsy or neurological problems: Yes Patient is afebrile and denies being moderately or severely ill: Yes Patient denies history of Guillain-[place] Syndrome (a severe paralytic illness): Yes Tdap Adacel injection was given without incident. See immunizations for details of immunizations administered today. VIS sheet provided: Yes Provider Jose England MD was present in office at time of injection. Marlen Rose MA documented in this encounterTr[facility]04-22-2025 Instructions* Patient Instructions* Marlen Rose MA - 11/11/2024 9:20 AM EDT SEQUENTIAL SCREENINGS The [facility] offers sequential screenings for women who are interested in screenings for chromosomal abnormalities and certain defects during a . The sequential screen combinesultrasound and blood tests to determine the risk [...] this testing. It will require an appointment withour bioinformatics technician. This is not an ultrasound performed [...] the above symptoms, contact our office at [phone] and ask to speak with anurse. After hours, you can call doctors registry at [phone] OR call [facility] at [phone] ask to have the doctor senior python developer paged. If you consider this an emergency, dial [phone] or go to your nearest emergency department. NEED HELP? Are you dealing with a violent or abusive relationship? Are you a victim of rape or sexual assult? Call [facility] ([facility] 24 hour Crisis Hotline: 151.115.5891 or 743-009-8286. MANUAL Your Guide to a Healthy manual is now on-line. Visit [email or web address] to download your free copy documented in this encounterTrinity [facility] System04-02-2025 Telephone encounter Note * Telephone Encounter - Mitzi Villalpando RN - 10/22/2024 11:48 AM EDT Patient called and notified of results. Mitzi Villalpando RN [facility]04-02-2025 Miscellaneous Notes* Telephone Encounter - Mitzi Villalpando RN - 10/22/2024 11:48 AM EDT Patient called and notified of results. Mitzi Villalpando RN * Telephone Encounter - Mitzi Villalpando RN - 10/22/2024 11:45 AM EDT ----- Message from Gala Vizcarra MD sent at 10/20/2024 1:07 PM EDT ----- Normal Echo Please inform the pt jeb documented in this encounterTr[facility] System04-02-2025 Telephone encounter Note * Telephone Encounter - Mitzi Villalpando RN - 10/22/2024 11:45 AM EDT ----- Message from Gala Vizcarra MD sent at 10/20/2024 1:07 PM EDT ----- Normal Echo Please inform the pt jeb [facility]03-17-2025 NoteHNO ID: [id number] Author: GALA VIZCARRA MD Service: ? Author Type: Physician Type: Progress Notes Filed: 10/06/2024 13:57 Note Text: Gala Vizcarra MD Interventional Cardiology [address] [place] [address] [phone] Chief Complaint Patient presents with: New Patient: palpitations x 3 months comes on anytime HISTORY OF PRESENT ILLNESS: Ms. 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 she was evaluated with her first for the same problem she had an echocardiogram at that time was completely normal No definitive diagnosis was made Recently she has been having palpitation Holter monitor shows wide-complex tachycardia 1 episode Review of the Holter monitor is likely supraventricular tachycardia with aberrant conduction Denies chest pain or shortness of breath no signs or symptoms of congestive heart failure Cardiac Risk Factors family history of CAD PAST MEDICAL HISTORY Diagnosis Date Mononucleosis 10/27/2014 Post depression 06/16/2024 Scoliosis of cervical spine Unspecified asthma(493.90) has not used inhaler since 2016 PAST SURGICAL HISTORY Procedure Laterality Date EXTRACTION, ERUPTED TOOTH OR EXPOSED ROOT (ELEVATION AND/OR FORCEPS REMOVAL) FAMILY HISTORY Problem Relation Age of Onset Skin Cancer Mother Heart Father triple bypass 50 other (htn) Father Hyperlipidemia Father Lung Cancer Maternal Grandmother other (bladder cancer) Maternal Grandfather No Known Problems Paternal Grandmother Heart Paternal Grandfather Stroke Paternal Grandfather Dementia Paternal Grandfather Social History Tobacco Use Smoking status: Never Smokeless tobacco: Never Vaping Use Vaping status: Never Used Substance Use Topics Alcohol use: Yes Comment: socially Drug use: No ALLERGIES Allergen Reactions Mold Ragweed Medications: Current Outpatient Medications Medication Sig Dispense Refill ergocalciferol, vitamin D2, (VITAMIN D2 ORAL) Take 2,000 Units by mouth once daily. pantoprazole DR (PROTONIX) 20 mg tablet Take 1 tablet by mouth once daily. 30 tablet 4 promethazine (PHENERGAN) 12.5 mg tablet Take 1-2 tablets by mouth every 6 hours as needed for nausea/vomiting. 90 tablet 2 sertraline (ZOLOFT) 25 mg tablet Take 1 tablet by mouth once daily. 90 tablet 3 prental multivitamin 27 mg iron- 800 mcg tablet Take 1 tablet by mouth once daily. No current facility-administered medications for this visit. Review of Systems Constitutional: Negative for chills, diaphoresis, fever, malaise/fatigue and weight loss. HENT: Negative for congestion, ear discharge, ear pain, hearing loss, nosebleeds, sinus pain, sore throat and tinnitus. Eyes: Negative for blurred vision, double vision, photophobia, pain, discharge and redness. Respiratory: Negative for cough, hemoptysis, sputum production, shortness of breath, wheezing and stridor. Cardiovascular: Positive for palpitations. Negative for chest pain, orthopnea, claudication, leg swelling and PND. Gastrointestinal: Negative for abdominal pain, blood in stool, constipation, diarrhea, heartburn, melena, nausea and vomiting. Genitourinary: Negative for dysuria, flank pain, frequency, hematuria and urgency. Musculoskeletal: Negative for back pain, falls, joint pain, myalgias and neck pain. Skin: Negative for itching and rash. Neurological: Negative for dizziness, tingling, tremors, sensory change, speech change, focal weakness, seizures, loss of consciousness, weakness and headaches. Endo/Heme/Allergies: Negative for environmental allergies and polydipsia. Does not bruise/bleed easily. Psychiatric/Behavioral: Negative for depression, hallucinations, memory loss, substance abuse and suicidal ideas. The patient is not nervous/anxious and does not have insomnia. Physical Examination: Vitals:BP 130/56 Pulse 111 Resp 12 Ht 5' 4 (1.63m) Wt 156 lb (70.8kg) SpO2 100% LMP 04/20/2024 BMI 26.76 kg/(m2). BP w/Orthostatic Vitals Date and Time Orthostatic BP Orthostatic Pulse BP Pulse BP Position BP Site BP Cuff Size 10/06/24 1309 -- -- 130/56 111 Sitting Right Arm Regular Adult Peak Flow Date and Time PF Resp 10/06/24 1309 -- 12 Last 2 Encounter Wt Readings: Date: Wt: 10/06/2024 156 lb (70.8 kg) 09/17/2024 152 lb 6.4 oz (69.1 kg) Physical Exam Constitutional: General: She is not in acute distress. Appearance: She is not diaphoretic. HENT: Head: Normocephalic and atraumatic. Right Ear: External ear normal. Left Ear: External ear normal. Nose: Nose normal. Mouth/Throat: Pharynx: Oropharynx is clear. Eyes: General: Right eye: No discharge. Left eye: No discharge. Conjunctiva/sclera: Conjunctivae normal. Pupils: Pupils are equal, round, and reactive to light. Cardiov (more content not included)...[facility]03-17-2025 History of Present illness Narrative* Gala Vizcarra MD - 10/06/2024 1:52 PM EDT Images from the original note were not included. Gala Vizcarra MD Interventional Cardiology [address] [place] [id number] Chief Complaint Patient presents with: New Patient: palpitations x 3 months comes on anytime HISTORY OF PRESENT ILLNESS: Ms. 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 she was evaluated with her first for the same problem she had an echocardiogram at that time was completely normal No definitive diagnosis was made Recently she has been having palpitation Holter monitor shows wide-complex tachycardia 1 episode Review of the Holter monitor is likely supraventricular tachycardia with aberrant conduction Denies chest pain or shortness of breath no signs or symptoms of congestive heart failure Cardiac Risk Factors family history of CAD PAST MEDICAL HISTORY Diagnosis Date Mononucleosis 10/27/2014 Post depression 06/16/2024 Scoliosis of cervical spine Unspecified asthma(493.90) has not used inhaler since 2015 PAST SURGICAL HISTORY Procedure Laterality Date EXTRACTION, ERUPTED TOOTH OR EXPOSED ROOT (ELEVATION AND/OR FORCEPS REMOVAL) FAMILY HISTORY Problem Relation Age of Onset Skin Cancer Mother Heart Father triple bypass 50 other (htn) Father Hyperlipidemia Father Lung Cancer Maternal Grandmother other (bladder cancer) Maternal Grandfather No Known Problems Paternal Grandmother Heart Paternal Grandfather Stroke Paternal Grandfather Dementia Paternal Grandfather Social History Tobacco Use Smoking status: Never Smokeless tobacco: Never Vaping Use Vaping status: Never Used Substance Use Topics Alcohol use: Yes Comment: socially Drug use: No ALLERGIES Allergen Reactions Mold Ragweed Medications: Current Outpatient Medications Medication Sig Dispense Refill ergocalciferol, vitamin D2, (VITAMIN D2 ORAL) Take 2,000 Units by mouth once daily. pantoprazole DR (PROTONIX) 20 mg tablet Take 1 tablet by mouth once daily. 30 tablet 4 promethazine (PHENERGAN) 12.5 mg tablet Take 1-2 tablets by mouth every 6 hours as needed for nausea/vomiting. 90 tablet 2 sertraline (ZOLOFT) 25 mg tablet Take 1 tablet by mouth once daily. 90 tablet 3 prental multivitamin 27 mg iron- 800 mcg tablet Take 1 tablet by mouth once daily. No current facility-administered medications for this visit. Review of Systems Constitutional: Negative for chills, diaphoresis, fever, malaise/fatigue and weight loss. HENT: Negative for congestion, ear discharge, ear pain, hearing loss, nosebleeds, sinus pain, sore throat and tinnitus. Eyes: Negative for blurred vision, double vision, photophobia, pain, discharge and redness. Respiratory: Negative for cough, hemoptysis, sputum production, shortness of breath, wheezing and stridor. Cardiovascular: Positive for palpitations. Negative for chest pain, orthopnea, claudication, leg swelling and PND. Gastrointestinal: Negative for abdominal pain, blood in stool, constipation, diarrhea, heartburn, melena, nausea and vomiting. Genitourinary: Negative for dysuria, flank pain, frequency, hematuria and urgency. Musculoskeletal: Negative for back pain, falls, joint pain, myalgias and neck pain. Skin: Negative for itching and rash. Neurological: Negative for dizziness, tingling, tremors, sensory change, speech change, focal weakness, seizures, loss of consciousness, weakness and headaches. Endo/Heme/Allergies: Negative for environmental allergies and polydipsia. Does not bruise/bleed easily. Psychiatric/Behavioral: Negative for depression, hallucinations, memory loss, substance abuse and suicidal ideas. The patient is not nervous/anxious and does not have insomnia. Physical Examination: Vitals:BP 130/56 Pulse 111 Resp 12 Ht 5' 4 (1.63m) Wt 156 lb (70.8kg) SpO2 100% LMP 04/20/2024 BMI 26.76 kg/(m^2). BP w/Orthostatic Vitals Date and Time Orthostatic BP Orthostatic Pulse BP Pulse BP Position BP Site BP Cuff Size 10/06/24 1309 -- -- 130/56 111 Sitting Right Arm Regular Adult Peak Flow Date and Time PF Resp 10/06/24 1309 -- 12 Last 2 Encounter Wt Readings: Date: Wt: 10/06/2024 156 lb (70.8 kg) 09/17/2024 152 lb 6.4 oz (69.1 kg) Physical Exam Constitutional: General: She is not in acute distress. Appearance: She is not diaphoretic. HENT: Head: Normocephalic and atraumatic. Right Ear: External ear normal. Left Ear: External ear normal. Nose: Nose normal. Mouth/Throat: Pharynx: Oropharynx is clear. Eyes: General: Right eye: No discharge. Left eye: No discharge. Conjunctiva/sclera: Conjunctivae normal. Pupils: Pupils are equal, round, and reactive to light. Cardiovascular: Rate and Rhythm: Normal rate and regular rhythm. Heart sounds: Normal heart sounds, S1 normal and S2 normal. No murmur heard. No friction rub. No gallop. No S3 or S4 sounds. Pulmonary: Effort: Pulmonary effort is normal. No respiratory distress. Breath sounds: Normal breath sounds. No wheezing or rales. Chest: Chest wall: No tenderness. Abdominal: General: Abdomen is flat. Musculoskeletal: General: Normal range of motion. Cervical back: Normal range of motion and neck supple. Skin: General: Skin is warm and dry. Neurological: Mental Status: She is alert and oriented to person, place, and time. Psychiatric: Mood and Affect: Mood normal. Thought Content: Thought content normal. Pertinent Labs: CBC: Hemoglobin (g/dL) Date Value 07/03/2024 12.9 01/01/2015 13.2 Hematocrit (%) Date Value 07/03/2024 38.0 01/01/2015 40.4 WBC (k/uL) Date Value 07/03/2024 10.60 01/01/2015 7.25 Platelet Count (k/uL) Date Value 07/03/2024 319 01/01/2015 256 BMP: Glucose (mg/dL) Date Value 09/18/2024 100 01/01/2015 77 Potassium (mmol/L) Date Value 09/18/2024 3.7 01/01/2015 4.1 Sodium (mmol/L) Date Value 09/18/2024 137 01/01/2015 140 Chloride (mmol/L) Date Value 09/18/2024 103 01/01/2015 104 CO2 (mmol/L) Date Value 09/18/2024 22 01/01/2015 25 Creatinine (mg/dL) Date Value 09/18/2024 0.39 01/01/2015 0.71 BUN (mg/dL) Date Value 09/18/2024 7 01/01/2015 9 Anion Gap (mmol/L) Date Value 09/18/2024 12 01/01/2015 11 Calcium (mg/dL) Date Value 01/01/2015 9.3 Calcium, Total (mg/dL) Date Value 09/18/2024 8.5 INR: Lipid Profile: LDL Chol, Lalitha Date Value Ref Range Status 02/13/2012 41 0 - 129 mg/dL Final Hemoglobin A1C: No results found for: HGBA1C TSH: No results found for: TSHREFL Prior Cardiac Testing zio Assessment and Plan: 29 years old female 23 weeks with palpitation ASSESSMENT/PLAN: 1. Palpitations - ICD9: 785.1, ICD10: R00.2 Benign recurrent palpitation likely supraventricular tachycardia Reviewed the Holter monitor the recorded episode is not consistent with [place] We will schedule for echocardiography to rule out any structural heart disease No indication for medical therapy or intervention at this time - ECHO - PERFLUTREN LIPID MICROSPHERES 1.1 MG/ML INJECTION IN NS 10 ML - SODIUM CHLORIDE 0.9 % (FLUSH) INJECTION SYRINGE Gala Vizcarra MD Follow up plannin months Electronically signed by Gala Vizcarra MD on October 06, 2024, 1:52 PM The above note was partially created using a dictation recognition software. A reasonable attempt has been made to correct any errors. documented in this encounterTrinity [facility] System03-10-2025 Evaluation note* Diagnosis Onset Date Resolution Status Admit Date Segmental and somatic dysfunction of cervical region acute M arch 2024 9:29am Segmental and somatic dysfunction of lumbar region acute Mar 2024 9:29am Segmental and somatic dysfunction of pelvic region acute [facility] 2024 9:29am Segmental and somatic dysfunction of thoracic region acute M arch 2024 9:29am Scoliosis chronic September 29 9:29am Segmental and somatic dysfunction of cervical region acute A pril 2024 8:59am Segmental and somatic dysfunction of lumbar region acute Apr il 2024 8:59am Segmental and somatic dysfunction of pelvic region acute Apr il 2024 8:59am Segmental and somatic dysfunction of thoracic region acute A pril 2024 8:59am Scoliosis chronic October 27 8:59am Segmental and somatic dysfunction of cervical region acute M ay 2024 9:32am Segmental and somatic dysfunction of lumbar region acute November 24, 2024 9:32am Segmental and somatic dysfunction of pelvic region acute November 24, 2024 9:32am Segmental and somatic dysfunction of thoracic region acute M ay 2024 9:32am Scoliosis chronic November 24, 2024 9:32am Segmental and somatic dysfunction of cervical region acute J une 2024 8:58am Segmental and somatic dysfunction of lumbar region acute [place] e 2024 8:58am Segmental and somatic dysfunction of sacral region acute Bello e 2024 8:58am Segmental and somatic dysfunction of thoracic region acute J une 2024 8:58am Scoliosis chronic December 22, 2024 8:58am Segmental and somatic dysfunction of cervical region acute J une 2024 2:01pm Segmental and somatic dysfunction of lumbar region acute Bello e 2024 2:01pm Segmental and somatic dysfunction of pelvic region acute Bello e 2024 2:01pm Segmental and somatic dysfunction of sacral region acute Bello e 2024 2:01pm Segmental and somatic dysfunction of thoracic region acute J une 2024 2:01pm Scoliosis chronic December 29, 2024 2:01pm [place] [employer] Work Phone: 1(802) 806-406003-10-2025 Evaluation note* Diagnosis Onset Date Resolution Status Admit Date Segmental and somatic dysfunction of cervical region acute M arch 2024 9:29am Segmental and somatic dysfunction of lumbar region acute Mar ch 2024 9:29am Segmental and somatic dysfunction of pelvic region acute Mar ch 2024 9:29am Segmental and somatic dysfunction of thoracic region acute M arch 2024 9:29am Scoliosis chronic September 29 9:29am Segmental and somatic dysfunction of cervical region acute A pril 2024 8:59am Segmental and somatic dysfunction of lumbar region acute Apr il 2024 8:59am Segmental and somatic dysfunction of pelvic region acute Apr il 2024 8:59am Segmental and somatic dysfunction of thoracic region acute A pril 2024 8:59am Scoliosis chronic October 27 8:59am Segmental and somatic dysfunction of cervical region acute M ay 2024 9:32am Segmental and somatic dysfunction of lumbar region acute November 24, 2024 9:32am Segmental and somatic dysfunction of pelvic region acute November 24, 2024 9:32am Segmental and somatic dysfunction of thoracic region acute M ay 2024 9:32am Scoliosis chronic November 24, 2024 9:32am Segmental and somatic dysfunction of cervical region acute J une 2024 8:58am Segmental and somatic dysfunction of lumbar region acute Bello e 2024 8:58am Segmental and somatic dysfunction of sacral region acute Bello e 2024 8:58am Segmental and somatic dysfunction of thoracic region acute J une 2024 8:58am Scoliosis chronic December 22, 2024 8:58am Segmental and somatic dysfunction of cervical region acute J une 2024 2:01pm Segmental and somatic dysfunction of lumbar region acute Bello e 2024 2:01pm Segmental and somatic dysfunction of sacral region acute Bello e 2024 2:01pm Segmental and somatic dysfunction of thoracic region acute J une 2024 2:01pm Scoliosis chronic December 29, 2024 2:01pm Segmental and somatic dysfunction of cervical region acute J une 2024 3:28pm Segmental and somatic dysfunction of lumbar region acute Bello e 2024 3:28pm Segmental and somatic dysfunction of pelvic region acute Bello e 2024 3:28pm Segmental and somatic dysfunction of sacral region acute Bello e 2024 3:28pm Segmental and somatic dysfunction of thoracic region acute J une 2024 3:28pm Scoliosis chronic January 05 3:28pm [facility] Work Phone: 1(979) 531-726103-10-2025 Evaluation note* Diagnosis Onset Date Resolution Status Admit Date Segmental and somatic dysfunction of cervical region acute M arch 2024 9:29am Segmental and somatic dysfunction of lumbar region acute Mar 2024 9:29am Segmental and somatic dysfunction of pelvic region acute [facility] 2024 9:29am Segmental and somatic dysfunction of thoracic region acute M arch 2024 9:29am Scoliosis chronic September 29 9:29am Segmental and somatic dysfunction of cervical region acute A pril 2024 8:59am Segmental and somatic dysfunction of lumbar region acute Apr il 2024 8:59am Segmental and somatic dysfunction of pelvic region acute Apr il 2024 8:59am Segmental and somatic dysfunction of thoracic region acute A pril 2024 8:59am Scoliosis chronic October 27 8:59am Segmental and somatic dysfunction of cervical region acute M ay 2024 9:32am Segmental and somatic dysfunction of lumbar region acute November 24, 2024 9:32am Segmental and somatic dysfunction of pelvic region acute November 24, 2024 9:32am Segmental and somatic dysfunction of thoracic region acute M ay 2024 9:32am Scoliosis chronic November 24, 2024 9:32am Segmental and somatic dysfunction of cervical region acute J une 2024 8:58am Segmental and somatic dysfunction of lumbar region acute [place] e 2024 8:58am Segmental and somatic dysfunction of sacral region acute Bello e 2024 8:58am Segmental and somatic dysfunction of thoracic region acute J une 2024 8:58am Scoliosis chronic December 22, 2024 8:58am Segmental and somatic dysfunction of cervical region acute J une 2024 2:01pm Segmental and somatic dysfunction of lumbar region acute [place]ello e 2024 2:01pm Segmental and somatic dysfunction of sacral region acute B[place] e 2024 2:01pm Segmental and somatic dysfunction of thoracic region acute J une 2024 2:01pm Scoliosis chronic December 29, 2024 2:01pm Segmental and somatic dysfunction of cervical region acute J une 2024 3:28pm Segmental and somatic dysfunction of lumbar region acute Bello e 2024 3:28pm Segmental and somatic dysfunction of sacral region acute Bello e 2024 3:28pm Segmental and somatic dysfunction of thoracic region acute J une 2024 3:28pm Scoliosis chronic January 05 3:28pm Segmental and somatic dysfunction of cervical region acute J une 2024 9:00am Segmental and somatic dysfunction of lumbar region acute Bello e 2024 9:00am Segmental and somatic dysfunction of pelvic region acute [place]ello e 2024 9:00am Segmental and somatic dysfunction of sacral region acute [place] 2024 9:00am Segmental and somatic dysfunction of thoracic region acute J une 2024 9:00am Scoliosis chronic January 12 9:00am [facility] Work Phone: 1(946) 306-950903-10-2025 Evaluation note* Diagnosis Onset Date Resolution Status Admit Date Segmental and somatic dysfunction of cervical region acute M arch 2024 9:29am Segmental and somatic dysfunction of lumbar region acute Mar ch 2024 9:29am Segmental and somatic dysfunction of pelvic region acute Mar ch 2024 9:29am Segmental and somatic dysfunction of thoracic region acute M arch 2024 9:29am Scoliosis chronic September 29 9:29am Segmental and somatic dysfunction of cervical region acute A pril 2024 8:59am Segmental and somatic dysfunction of lumbar region acute Apr il 2024 8:59am Segmental and somatic dysfunction of pelvic region acute Apr il 2024 8:59am Segmental and somatic dysfunction of thoracic region acute A pril 2024 8:59am Scoliosis chronic October 27 8:59am Segmental and somatic dysfunction of cervical region acute M ay 2024 9:32am Segmental and somatic dysfunction of lumbar region acute November 24, 2024 9:32am Segmental and somatic dysfunction of pelvic region acute November 24, 2024 9:32am Segmental and somatic dysfunction of thoracic region acute M ay 2024 9:32am Scoliosis chronic November 24, 2024 9:32am Segmental and somatic dysfunction of cervical region acute J une 2024 8:58am Segmental and somatic dysfunction of lumbar region acute Bello e 2024 8:58am Segmental and somatic dysfunction of sacral region acute Bello e 2024 8:58am Segmental and somatic dysfunction of thoracic region acute J une 2024 8:58am Scoliosis chronic December 22, 2024 8:58am Segmental and somatic dysfunction of cervical region acute J une 2024 2:01pm Segmental and somatic dysfunction of lumbar region acute Bello e 2024 2:01pm Segmental and somatic dysfunction of sacral region acute Bello e 2024 2:01pm Segmental and somatic dysfunction of thoracic region acute J une 2024 2:01pm Scoliosis chronic December 29, 2024 2:01pm Segmental and somatic dysfunction of cervical region acute J une 2024 3:28pm Segmental and somatic dysfunction of lumbar region acute Bello e 2024 3:28pm Segmental and somatic dysfunction of sacral region acute Bello e 2024 3:28pm Segmental and somatic dysfunction of thoracic region acute J une 2024 3:28pm Scoliosis chronic January 05 3:28pm Segmental and somatic dysfunction of cervical region acute J une 2024 9:00am Segmental and somatic dysfunction of lumbar region acute Bello e 2024 9:00am Segmental and somatic dysfunction of sacral region acute Bello e 2024 9:00am Segmental and somatic dysfunction of thoracic region acute J une 2024 9:00am Scoliosis chronic January 12 9:00am Segmental and somatic dysfunction of cervical region acute J une 2024 9:02am Segmental and somatic dysfunction of lumbar region acute Bello 2024 9:02am Segmental and somatic dysfunction of sacral region acute Bello 2024 9:02am Segmental and somatic dysfunction of thoracic region acute J une 2024 9:02am Scoliosis chronic January 19 9:02am [facility] Work Phone: [phone] Telephone encounter Note* Telephone Encounter - Rama Herrera RN - 09/17/2024 2:20 PM EST Spoke with [facility]. They were able to work patient in on 10/06/[address] Sears. Patientnotified. Rama Herrera RN [facility]02-26-2025 Miscellaneous Notes* Telephone Encounter - Rama Herrera RN - 09/17/2024 2:20 PM EST Spoke with [facility]. They were able to work patient in on 10/06/[address] Sears. Patientnotified. Rama Herrera RN documented in this encounterTr[facility] System02-26-2025 Progress note* Quick Notes - Krissy Galvan APRN.CNM - 09/17/2024 12:27 PM EST CHALO-S: Melany Mace is a 29 year old female who presents at 20w3d with BELTRAN:02/01/2025, by Ultrasound for a routine visit. Denies headache, visual changes, chest pain, shortness of breath, vaginal bleeding, leakage of fluid, or dysuria. Feeling well, no complaints. O: See flow sheet Gen: No apparent distress Abd: Gravid, nontender 1. Encounter for supervision of other normal in second trimester -Continue PNV 2. 20 Weeks gestation of 3. Nausea and vomiting during -Taking phenergan, discussed trialing zofran over the weekend and see if any imporvoement in HR or symptoms 4. Heartburn during in second trimester -Continue Protonix 5. Depression affecting -Continue Zoloft 25mg PO once daily, coping well. 6. History of asthma -No hemabate during delivery 7. Palpitations -Zio patch completed -Cardiology consult placed -Consulted in office today and agrees with plan 8.Abnormal thyroid blood test -Decreased free t4 -Repeat thyroid studies at 28wk PTL precautions reviewed and when to call RTO in 4 weeks Krissy Galvan APRN.CNM [facility]02-26-2025 Miscellaneous Notes* Quick Notes - Krissy Galvan APRN.CNM - 09/17/2024 12:27 PM EST CHALO-S: Melany Mace is a 29 year old female who presents at 20w3d with BELTRAN:02/01/2025, by Ultrasound for a routine visit. Denies headache, visual changes, chest pain, shortness of breath, vaginal bleeding, leakage of fluid, or dysuria. Feeling well, no complaints. O: See flow sheet Gen: No apparent distress Abd: Gravid, nontender 1. Encounter for supervision of other normal in second trimester -Continue PNV 2. 20 Weeks gestation of 3. Nausea and vomiting during -Taking phenergan, discussed trialing zofran over the weekend and see if any imporvoement in HR or symptoms 4. Heartburn during in second trimester -Continue Protonix 5. Depression affecting -Continue Zoloft 25mg PO once daily, coping well. 6. History of asthma -No hemabate during delivery 7. Palpitations -Zio patch completed -Cardiology consult placed -Consulted in office today and agrees with plan 8.Abnormal thyroid blood test -Decreased free t4 -Repeat thyroid studies at 28wk PTL precautions reviewed and when to call RTO in 4 weeks Krissy Galvan, ONLINE RETAILER.CNM documented in this encounterTrinity Health System02-26-2025 Instructions* Patient Instructions* Marlen Rose MA - 09/17/2024 11:14 AM EST SEQUENTIAL SCREENINGS The [facility] offers sequential screenings for women who are interested in screenings for chromosomal abnormalities and certain defects during a . The sequential screen combinesultrasound and blood tests to determine the risk [...] this testing. It will require an appointment withour bioinformatics technician. This is not an ultrasound performed [...] the above symptoms, contact our office at [phone] and ask to speak with anurse. After hours, you can call doctors registry at [phone] OR call [facility] at [phone] ask to have the doctor senior python developer paged. If you consider this an emergency, dial 9-1-8 or go to your nearest emergency department. NEED HELP? Are you dealing with a violent or abusive relationship? Are you a victim of rape or sexual assult? Call [facility] ([facility]) 24 hour Crisis Hotline: 267.660.8350 or 020-512-9583. MANUAL Your Guide to a Healthy manual is now on-line. Visit [email or web address] to download your free copy documented in this encounterTrinity Health System02-06-2025 Evaluation note* Diagnosis Onset Date Resolution Status Admit Date Segmental and somatic dysfunction of cervical region acute August 28 4:50pm Segmental and somatic dysfunction of lumbar region acute b 2024 4:50pm Segmental and somatic dysfunction of pelvic region acute Aug 4:50pm Segmental and somatic dysfunction of thoracic region acute August 28 4:50pm Scoliosis chronic August 28, 2024 4:50pm Segmental and somatic dysfunction of cervical region acute September 29, 2024 9:29am Segmental and somatic dysfunction of lumbar region acute Mar 2024 9:29am Segmental and somatic dysfunction of pelvic region acute Mar 2024 9:29am Segmental and somatic dysfunction of thoracic region acute September 29, 2024 9:29am Scoliosis chronic September 29 9:29am Segmental and somatic dysfunction of cervical region acute October 27, 2024 8:59am Segmental and somatic dysfunction of lumbar region acute Oct 8:59am Segmental and somatic dysfunction of pelvic region acute Oct 8:59am Segmental and somatic dysfunction of thoracic region acute October 27, 2024 8:59am Scoliosis chronic October 27 8:59am Segmental and somatic dysfunction of cervical region acute November 24, 2024 9: 32am Segmental and somatic dysfunction of lumbar region acute November 24, 2024 9:32am Segmental and somatic dysfunction of pelvic region acute November 24, 2024 9:32am Segmental and somatic dysfunction of thoracic region acute November 24, 2024 9: 32am Scoliosis chronic November 24, 2024 9:32am Segmental and somatic dysfunction of cervical region acute December 22, 2024 8 :58am Segmental and somatic dysfunction of lumbar region acute Dec 8:58am Segmental and somatic dysfunction of sacral region acute Bello e 2024 8:58am Segmental and somatic dysfunction of thoracic region acute December 22, 2024 8 :58am Scoliosis chronic December 22, 2024 8:58am [facility] Work Phone: [phone] 135-705501-28-2025 Progress note* Quick Notes - Krissy Galvan APRN.CNM - 08/19/2024 11:26 AM EST CHALO-S: Melany Elana Mace is a 29 year old female who presents at 02/01/2025, by Ultrasound for a routine visit. Denies headache, visual changes, vaginal bleeding, leakage of fluid, or dysuria. Presentstoday with complaint of palpitations unresolved by increased hydration and compression stockings. Having one episode of palpations a day. Starts gradual, heart rate increases and stays elevated for several minutes and then decreases. SOB and chest pain at time of palpitations but mild. Feels fatigued during episode. Will just be sitting and it occurs. Lasts 10-15 minutes. Had similar feeling withprior but feels it is lasting longer and different. Wearing compressions, electrolyte pack ets, increasing hydrations. Admits to vulvar burning and uncertain if with urination or after. No vaginal discharge or odor. O: See flow sheet Gen: No apparent distress Abd: Gravid, nontender ASSESSMENT/PLAN: 1. Encounter for supervision of other normal in second trimester -Continue PNV -Labs reviewed, declines NIPT -Reviewed ASA in . Discussed reduced likelihood due to no prior GHTN or preeclampsia with prior but universal ASA recommended by 16 weeks. Uncertain at this time but discussed not to start after this week. 2. 16 weeks gestation of 3. Dysuria - UA DIP, URINE (POC) - BACTERIAL CULTURE, URINE 4. Vaginal itching - BACTERIAL VAGINOSIS NAAT - BASSEM/TRICHOMONAS NAAT 5. Nausea and vomiting during -Taking phenergan, discussed trialing zofran over the weekend and see if any imporvoement in HR or symptoms 6. Heartburn during in second trimester -Continue Protonix 7. Malaise and fatigue - THYROID STIMULATING HORMONE - T4 FREE/FREE THYROXINE - VITAMIN D 25 HYDROXY - VITAMIN B12 8. History of depression 9. History of asthma -No hemabate during delivery 10. Depression affecting -Continue Zoloft 25mg PO once daily, coping well. 11. Palpitations -EKG in office today, NSR -Zio patch ordered -TSH, free T4 Vitamin D, Vitamin B12 ordered. -Will follow up with cardiology after results PTL precautions reviewed and when to call RTO in 4 weeks Krissy Galvan APRN.CNM [facility]01-28-2025 Miscellaneous Notes* Quick Notes - Krissy Galvan APRN.CNM - 08/19/2024 11:26 AM EST SHAWANDA: Melany Mace is a 29 year old female who presents at 02/01/2025, by Ultrasound for a routine visit. Denies headache, visual changes, vaginal bleeding, leakage of fluid, or dysuria. Presentstoday with complaint of palpitations unresolved by increased hydration and compression stockings. Having one episode of palpations a day. Starts gradual, heart rate increases and stays elevated for several minutes and then decreases. SOB and chest pain at time of palpitations but mild. Feels fatigued during episode. Will just be sitting and it occurs. Lasts 10-15 minutes. Had similar feeling withprior but feels it is lasting longer and different. Wearing compressions, electrolyte pack ets, increasing hydrations. Admits to vulvar burning and uncertain if with urination or after. No vaginal discharge or odor. O: See flow sheet Gen: No apparent distress Abd: Gravid, nontender ASSESSMENT/PLAN: 1. Encounter for supervision of other normal in second trimester -Continue PNV -Labs reviewed, declines NIPT -Reviewed ASA in . Discussed reduced likelihood due to no prior GHTN or preeclampsia with prior but universal ASA recommended by 16 weeks. Uncertain at this time but discussed not to start after this week. 2. 16 weeks gestation of 3. Dysuria - UA DIP, URINE (POC) - BACTERIAL CULTURE, URINE 4. Vaginal itching - BACTERIAL VAGINOSIS NAAT - BASSEM/TRICHOMONAS NAAT 5. Nausea and vomiting during -Taking phenergan, discussed trialing zofran over the weekend and see if any imporvoement in HR or symptoms 6. Heartburn during in second trimester -Continue Protonix 7. Malaise and fatigue - THYROID STIMULATING HORMONE - T4 FREE/FREE THYROXINE - VITAMIN D 25 HYDROXY - VITAMIN B12 8. History of depression 9. History of asthma -No hemabate during delivery 10. Depression affecting -Continue Zoloft 25mg PO once daily, coping well. 11. Palpitations -EKG in office today, NSR -Zio patch ordered -TSH, free T4 Vitamin D, Vitamin B12 ordered. -Will follow up with cardiology after results PTL precautions reviewed and when to call RTO in 4 weeks Krissy Galvan APRN.CNM documented in this encounterTr[facility] Health System01-28-2025 Instructions* Patient Instructions* Romaine Worthy MA - 08/19/2024 11:14 AM EST SEQUENTIAL SCREENINGS The [facility] offers sequential screenings for women who are interested in screenings for chromosomal abnormalities and certain defects during a . The sequential screen combinesultrasound and blood tests to determine the risk [...] this testing. It will require an appointment withour bioinformatics technician. This is not an ultrasound performed [...] the above symptoms, contact our office at [phone] and ask to speak with anurse. After hours, you can call doctors registry at [phone] OR call [facility] at [phone] ask to have the doctor senior python developer paged. If you consider this an emergency, dial 9-1- or go to your nearest emergency department. NEED HELP? Are you dealing with a violent or abusive relationship? Are you a victim of rape or sexual assult? Call [facility] ([place]) 24 hour Crisis Hotline: 885.602.7733 or 125-244-4616. MANUAL Your Guide to a Healthy manual is now on-line. Visit [email or web address] to download your free copy documented in this encounterTrinity Health System01-28-2025 NoteHNO ID: [id number] Author: GALA VIZCARRA MD Service: ? Author Type: Physician Type: Procedures Filed: 09/18/2024 15:10 Note Text: Patient Name: Melany Mace : 1995 Ordering Provider: KRISSY GALVAN Indication: R00.2 Palpitations Type of Monitor: Extended Monitoring-Zio Patch Enrollment Dates: 08/22/2024-09/05/2024 IRHYTHM FINDINGS: Patient had a min HR of 63 bpm, max HR of 235 bpm, and avg HR of 90 bpm. Predominant underlying rhythm was Sinus Rhythm. 1 run of Ventricular Tachycardia occurred lasting 15 beats with a max rate of 235 bpm (avg 200 bpm). Ventricular Tachycardia was detected within +/- 45 seconds of symptomatic patient event(s). Isolated SVEs were rare (<1.0%), and no SVE Couplets or SVE Triplets were present. Isolated VEs were rare (< 1.0%), and no VE Couplets or VE Triplets were present.[facility]12-30-2024 Progress note* Quick Notes - Machelle Weems APRN.CNM - 07/21/2024 11:11 AM EST S: Melany Mace is a 29 year old female who presents at 12 weeks gestation for a routine visitand NT. Continues to have daily nausea with occasional emesis. Some heartburn and willing to try medications. Denies headache, visual changes, chest pain, shortness of breath, vaginal bleeding, leakage of fluid, or dysuria. Feeling well, no complaints. O: See flow sheet Gen: No apparent distress Abd: Gravid, nontender ASSESSMENT/PLAN: 1. Encounter for supervision of other normal in second trimester - ICD9: V22.1, ICD10: Z34.82 (primary diagnosis) 2. Nausea and vomiting during 3. Anxiety 4. Post depression 5. 12 weeks gestation of - Protonix 20 mg ER PO Daily - Continue Phenergan 12.5 mg PO as needed for N/V - Declines aneuploidy screening - RTO 4 weeks Machelle Weems APRN.CNM [facility]12-30-2024 Miscellaneous Notes* Quick Notes - Machelle Weems APRN.CNM - 07/21/2024 11:11 AM EST S: Melany Mace is a 29 year old female who presents at 12 weeks gestation for a routine visitand NT. Continues to have daily nausea with occasional emesis. Some heartburn and willing to try medications. Denies headache, visual changes, chest pain, shortness of breath, vaginal bleeding, leakage of fluid, or dysuria. Feeling well, no complaints. O: See flow sheet Gen: No apparent distress Abd: Gravid, nontender ASSESSMENT/PLAN: 1. Encounter for supervision of other normal in second trimester - ICD9: V22.1, ICD10: Z34.82 (primary diagnosis) 2. Nausea and vomiting during 3. Anxiety 4. Post depression 5. 12 weeks gestation of - Protonix 20 mg ER PO Daily - Continue Phenergan 12.5 mg PO as needed for N/V - Declines aneuploidy screening - RTO 4 weeks Machelle Weems APRN.CNM documented in this encounterTrinity Health System12-30-2024 Instructions* Patient Instructions* Romaine Worthy MA - 07/21/2024 11:03 AM EST SEQUENTIAL SCREENINGS The [facility] offers sequential screenings for women who are interested in screenings for chromosomal abnormalities and certain defects during a . The sequential screen combinesultrasound and blood tests to determine the risk [...] this testing. It will require an appointment withour bioinformatics technician. This is not an ultrasound performed [...] the above symptoms, contact our office at [phone] and ask to speak with anurse. After hours, you can call doctors registry at [phone] OR call [facility] at [phone] ask to have the doctor senior python developer paged. If you consider this an emergency, dial 9-9 or go to your nearest emergency department. NEED HELP? Are you dealing with a violent or abusive relationship? Are you a victim of rape or sexual assult? Call [facility] ([place]) 24 hour Crisis Hotline: 562.713.7141 or 786-135-1497. MANUAL Your Guide to a Healthy manual is now on-line. Visit [email or web address] to download your free copy documented in this encounterTrinity Health System11-25-2024 Progress note* Quick Notes - Machelle Weems APRN.CNM - 06/16/2024 1:35 PM EST Patient here for NOB. See progress note. Machelle Weems APRN.CNM [facility]11-25-2024 Miscellaneous Notes* Quick Notes - Machelle Weems APRN.CNM - 06/16/2024 1:35 PM EST Patient here for NOB. See progress note. Machelle Weems APRN.CNM documented in this encounterTrinity Health System11-25-2024 NoteHNO ID: [id number] Author: MACHELLE WEEMS APRN.CNM Service: ? Author Type: Installers Mechanical Type: Progress Notes Filed: 06/16/2024 13:55 Note Text: Egg Grader offered: Patient declines. INITIAL OB ASSESSMENT HPI: Melany is a 29 year old White here to establish Obstetrical Care. Patient's last menstrual period was 04/20/2024. from OB Dating Form. was planned Complaints: No OB History T1 L1 SAB0 IAB0 Ectopic0 Multiple0 Live Births1 Previous history: Prior : No History of 4th degree laceration: History question Answer Diagnosis Date Comment Perineal Laceration, 3rd or 4th degree No History of perineal laceration 06/16/2024 History of shoulder dystocia: Shoulder Dystocia No History of Hypertensive disorders including pre-eclampsia or gestational hypertension: Gestational Hypertension No Preeclampsia No History of gestational diabetes: Diabetes in No Patient's Risk Screening for delivery: Have you had a prior srivastava between 20w and 36w6d? No How many pregnancies have you had before? 1 Did you have a previous baby with a GBS Infection? No Please select all that apply for any prior : N/A MEDICAL/PSYCHOSOCIAL HISTORY: History question Answer Diagnosis Date Comment Severe bleeding with delivery No History of hemorrhage 06/16/2024 History question Answer Diagnosis Date Comment Thyroid Disease No Thyroid disease 07/05/2022 Gestational Hypertension No Preeclampsia No Diabetes in No No results found for: ABORHD BMI 23.17 kg/(m2) Last Pap: 04/23/2024 History of abnormal pap: Abnormal Pap No Prior treatment for cervical dysplasia: none. Last HPV: History of STDs: N/A Partner History of STDs: None Did you have a partner with Herpes? No Tobacco use: No E-Cigarette/Vaping Use: No Caffeine use: No Drug use: No Alcohol use: No Multivitamin with Folic acid: Yes Would refuse blood transfusion if medically necessary: No Social Needs: How often does this describe you? I don't have enough money to pay my bills: Never Within the past 12 months, have you worried that your food would run out before you had money to buy more? Never In the past 12 months, has lack of reliable transportation kept you from going to medical appointments or work, or from getting things needed for daily living? Never In the past 12 months, have you had any concerns about having a place to live, or about the condition or quality of your housing? Never Would you like more information on any of the following (please check all that apply)? Not interested Social History: Do you have any history of depression, anxiety, PTSD, or other mood problems? No Do you have a history of abuse or trauma that may impact your experience? No Are you currently employed? Yes Depression/Anxiety Screening: denies symptoms of depression. OB Depression and Anxiety Screening- This Encounter (since 06/15/2024) Over the past 2 weeks have you felt down, depressed, or hopeless? Negative Over the past two weeks, have you felt little interest or pleasure in doing things?? Negative Feeling nervous, anxious or on edge 0-Not at all Not being able to stop or control worrying 0-Not al all Anxiety Pre-Screening Total (If >/= 3 additional questions will be reviewed) 0 Genetic Screening: Partner present: Yes Patient verbalized knowledge of partner family health history: Yes Do you or your partner have any personal or family history of defects not previously discussed: No Do you have history of a complicated by anomaly, genetic condition, or demise: No Preeclampsia Risk Screening: Screening for prevention of preeclampsia: High risk factors: None Moderate risk ractors: None OB Risk Screening: Completed, no positive findings documented. Marital Status: Partner: Name: Papi Age: 33 Occupation: Self-employed [employer] Gender: Male PAST MEDICAL HISTORY Diagnosis Date Mononucleosis 10/27/2014 Scoliosis of cervical spine Unspecified asthma(493.90) has not used inhaler since 2016 PAST SURGICAL HISTORY Procedure Laterality Date EXTRACTION, ERUPTED TOOTH OR EXPOSED ROOT (ELEVATION AND/OR FORCEPS REMOVAL) Current Outpatient Medications Medication Sig Dispense Refill sertraline (ZOLOFT) 25 mg tablet Take 1 tablet by mouth once daily. 90 tablet 3 prental multivitamin 27 mg iron- 800 mcg tablet Take 1 tablet by mouth once daily. ondansetron (ZOFRAN) 4 mg tablet Take 1 tablet by mouth every 8 hours as needed for nausea/vomiting. (Patient not taking: Reported on 06/16/2024) 30 tablet 1 No current facility-administered medications for this visit. Allergies As of Date: 06/16/2024 Allergen Noted Reaction MOLD 04/12/2005 RAGWEED 04/12/2005 Fully Assessed 06/16/2024 Does patient have penicillin allergy: No REVIEW (more content not included)...[facility]11-25-2024 History of Present illness Narrative* Machelle Weems APRN.JHONM - 06/16/2024 12:59 PM EST Egg Grader offered: Patient declines. INITIAL OB ASSESSMENT HPI: Melany is a 29 year old White here to establish Obstetrical Care. Patient's last menstrual period was 04/20/2024. from OB Dating Form. was planned Complaints: No OB History T1 L1 SAB0 IAB0 Ectopic0 Multiple0 Live Births1 Previous history: Prior : No History of 4th degree laceration: History question Answer Diagnosis Date Comment Perineal Laceration, 3rd or 4th degree No History of perineal laceration 06/16/2024 History of shoulder dystocia: Shoulder Dystocia No History of Hypertensive disorders including pre-eclampsia or gestational hypertension: Gestational Hypertension No Preeclampsia No History of gestational diabetes: Diabetes in No Patient's Risk Screening for delivery: Have you had a prior srivastava between 20w and 36w6d? No How many pregnancies have you had before? 1 Did you have a previous baby with a GBS Infection? No Please select all that apply for any prior : N/A MEDICAL/PSYCHOSOCIAL HISTORY: History question Answer Diagnosis Date Comment Severe bleeding with delivery No History of hemorrhage 06/16/2024 History question Answer Diagnosis Date Comment Thyroid Disease No Thyroid disease 07/05/2022 Gestational Hypertension No Preeclampsia No Diabetes in No No results found for: ABORHD BMI 23.17 kg/(m^2) Last Pap: 04/23/2024 History of abnormal pap: Abnormal Pap No Prior treatment for cervical dysplasia: none. Last HPV: History of STDs: N/A Partner History of STDs: None Did you have a partner with Herpes? No Tobacco use: No E-Cigarette/Vaping Use: No Caffeine use: No Drug use: No Alcohol use: No Multivitamin with Folic acid: Yes Would refuse blood transfusion if medically necessary: No Social Needs: How often does this describe you? I don't have enough money to pay my bills: Never Within the past 12 months, have you worried that your food would run out before you had money to buy more? Never In the past 12 months, has lack of reliable transportation kept you from going to medical appointments or work, or from getting things needed for daily living? Never In the past 12 months, have you had any concerns about having a place to live, or about the condition or quality of your housing? Never Would you like more information on any of the following (please check all that apply)? Not interested Social History: Do you have any history of depression, anxiety, PTSD, or other mood problems? No Do you have a history of abuse or trauma that may impact your experience? No Are you currently employed? Yes Depression/Anxiety Screening: denies symptoms of depression. OB Depression and Anxiety Screening- This Encounter (since 06/15/2024) Over the past 2 weeks have you felt down, depressed, or hopeless? Negative Over the past two weeks, have you felt little interest or pleasure in doing things? Negative Feeling nervous, anxious or on edge 0-Not at all Not being able to stop or control worrying 0-Not al all Anxiety Pre-Screening Total (If >/= 3 additional questions will be reviewed) 0 Genetic Screening: Partner present: Yes Patient verbalized knowledge of partner family health history: Yes Do you or your partner have any personal or family history of defects not previously discussed: No Do you have history of a complicated by anomaly, genetic condition, or demise: No Preeclampsia Risk Screening: Screening for prevention of preeclampsia: High risk factors: None Moderate risk ractors: None OB Risk Screening: Completed, no positive findings documented. Marital Status: Partner: Name: Papi Age: 33 Occupation: Self-employed [employer] Gender: Male PAST MEDICAL HISTORY Diagnosis Date Mononucleosis 10/27/2014 Scoliosis of cervical spine Unspecified asthma(493.90) has not used inhaler since 2016 PAST SURGICAL HISTORY Procedure Laterality Date EXTRACTION, ERUPTED TOOTH OR EXPOSED ROOT (ELEVATION AND/OR FORCEPS REMOVAL) Current Outpatient Medications Medication Sig Dispense Refill sertraline (ZOLOFT) 25 mg tablet Take 1 tablet by mouth once daily. 90 tablet 3 prental multivitamin 27 mg iron- 800 mcg tablet Take 1 tablet by mouth once daily. ondansetron (ZOFRAN) 4 mg tablet Take 1 tablet by mouth every 8 hours as needed for nausea/vomiting. (Patient not taking: Reported on 06/16/2024) 30 tablet 1 No current facility-administered medications for this visit. Allergies As of Date: 06/16/2024 Allergen Noted Reaction MOLD 04/12/2005 RAGWEED 04/12/2005 Fully Assessed 06/16/2024 Does patient have penicillin allergy: No REVIEW OF SYSTEMS: GENERAL: Negative for: Fever or Chills and Positive for: Fatigue HEENT: Negative for: Headache, Impaired Vision, Ringing in Ears, Nosebleeds NECK: Negative for: Swelling, Pain, Stiffness RESPIRATORY: Negative for: Cough, Shortness of breath, Wheezing- childhood asthma GASTROINTESTINAL: Positive for: Constipation and Positive for: Nausea and Vomiting MUSCULOSKELETAL: Negative for: Muscle or joint pain, stiffness, Joint swelling NEUROLOGIC/PSYCHIATRIC: Negative for: Weakness, Paralysis, Numbness, Tingling, Tremor, Anxiety, Depression, Memory loss SKIN: Negative for: Rash, Itching GENITOURINARY: Negative for: vaginal itching, vaginal discharge, hematuria or dysuria SENSITIVE EXAM: The sensitive examination was discussed with the Patient or Patient's Authorized Circuit Board Drafter. As applicable, any other physician, advance practice provider, medical student, or other health professional student that will be observing or involved in the sensitive examination for educational or training purposes was discussed with the Patient or Authorized Circuit Board Drafter. The Patient or Authorized Circuit Board Drafter has agreed to proceed with the sensitive examination. (Sensitive examination includes inspection and/or palpation of the breasts, pelvis, prostate and anorectal regions). PHYSICAL EXAM: BP 100/62 Ht 5' 4 (1.63m) Wt 135 lb (61.2kg) LMP 04/20/2024 BMI 23.16 kg/(m^2). GENERAL: pleasant in no apparent distress DERMATOLOGY: Normal and without lesions NECK: Supple and full range of motion CHEST: Normal inspiratory effort BREAST: soft, non-tender, symmetric, no dominant mass, normal nipple-areolar complex, no lymphadenopathy, and no nipple discharge ABDOMEN: soft, non-tender, and no masses NEURO: alert and oriented x3,exam grossly non-focal PELVIS: External genitalia normal without lesions. Perineal body intact. No vaginal or cervical lesions. Clinical Pelvimetry: Pelvimetry clinically assessed as adequate Limited OB ultrasound exam: single intrauterine , positive cardiac activity, and crown-rump length 7 weeks 1 day gestation ASSESSMENT/PLAN: 1. Less than 8 weeks gestation of - ICD9: V22.2, ICD10: Z3A.01 (primary diagnosis) 2. Encounter for supervision of other normal in first trimester - ICD9: V22.1, ICD10: Z34.81 3. Nausea and vomiting during - ICD9: 643.90, ICD10: O21.9 4. Encounter for supervision of normal first in first trimester - ICD9: V22.0, ICD10: Z34.01 5. 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 Anxiety - ICD9: 300.00, ICD10: F41.9 PLAN: 1) Patient oriented to practice. Discussed nutrition, folic acid supplementation, dietary guidelines, exercise, smoking, alcohol, caffeine, and drug use. Discussed gestational weight gain guidelines. Discussed routine OB labs including STD/HIV. Discussed how to access Your guide to a health and the [employer]. 2) Screening: Hemoglobin A1C: declined Baby Aspirin: The patient has been counseled about the potential benefits of low dose aspirin in and our recommendation that this be offered to all patients, regardless of whether they meet the high risk criteria specified above. She Declines Aneuploidy Screening: Discussed aneuploidy screening, nuchal translucency/first trimester early anatomy ultrasound and NIPT. The risks/benefits and limitations of NIPT/aneuploidy screening were reviewed including the potential for false negative and false positive results. The availability of genetic counseling was reviewed. Information on aneuploidy screening was provided. The patient declines screening Myriad Carrier Screening: Discussed myriad carrier screening. We discussed the availability of professional-society guided carrier screening and reviewed the conditions screened and limitations of screening. The availability of genetic counseling was reviewed. Information on carrier screening was provided. The patient Declines 3) Patient offered option of Virtual Visits. Patient prefers in person visits. Follow up in 4 weeks or sooner prn. Machelle Weems APRN.CNM documented [facility]24 Instructions* Patient Instructions* Lorena Kamara LPN - 06/16/2024 12:59 PM EST Please select the following link to access the [facility] Your Guide to a Healthy . [email or web address] Please select the following link to access the [facility] Your Guide to a Healthy . [email or web address] Please select the following link to access the [facility] Your Guide to a Healthy . [email or web address] documented in this encounterTr[facility]11-19-2024 Telephone encounter Note * Telephone Encounter - Rama Jacob MD - 06/10/2024 3:28 PM EST Nausea early in . Requesting medication be sent to the pharmacy. [facility] Miscellaneous Notes* Telephone Encounter - Rama Jacob MD - 06/10/2024 3:28 PM EST Nausea early in . Requesting medication be sent to the pharmacy. documented in this encounterTr[facility]10-14-2024 NoteHNO ID: [id number] Author: CARYN STRAUSS APRN.GROUND WATER TECHNICIAN Service: ? Author Type: Nurse Practitioner Type: Progress Notes Filed: 05/05/2024 08:32 Note Text: 05/05/2024 Patient presents with: Establish Care SUBJECTIVE: This is a 29 year old that is here today for Above Complaints. Depression: takes Zoloft as prescribed. Works well to control symptoms. Does not attend counseling. Denies SI, HI or insomnia ONSET: one month LOCATION: right wrist DURATION: more constant the last couple for days CHARACTERISTICS: sharp AGGRAVATING FEATURES: picking up things ALLEVIATING FEATURES: massage has helped, chiropractor adjustment, ice and brace at night RADIATION: can go up into [employer] as an [employer] and thinks related to over use Denies past/present injury/surgery, redness, warmth, swelling, numbness, tingling or weakness Past medical, surgical, family, social hx, medications, allergies and health maintenance reviewed and updated. PAST MEDICAL HISTORY Diagnosis Date Mononucleosis 10/27/2014 Scoliosis of cervical spine Unspecified asthma(493.90) has not used inhaler since 2016 ALLERGIES Mold and Ragweed MEDICATIONS Current Outpatient Medications Medication Sig meclizine (ANTIVERT) 25 mg tab Take 1 tablet by mouth three times a day as needed. sertraline (ZOLOFT) 25 mg tablet Take 1 tablet by mouth once daily. prental multivitamin 27 mg iron- 800 mcg tablet Take 1 tablet by mouth once daily. No current facility-administered medications for this visit. Medications and allergies reviewed by this provider. SOCIAL HISTORY Social History Tobacco Use Smoking status: Never Smokeless tobacco: Never Vaping Use Vaping status: Never Used Substance Use Topics Alcohol use: Yes Comment: socially Drug use: No REVIEW OF SYSTEMS GENERAL: No weight loss, malaise or fevers HEENT: Negative for frequent or significant headaches, No changes in hearing or vision, no nose bleeds or other nasal problems NECK: Negative for lumps, goiter, pain and significant neck swelling RESPIRATORY: Negative for cough, hemoptysis, wheezing, COPD, dyspnea or shortness of breath CARDIOVASCULAR: Negative for chest pain, leg swelling, hypertension, CHF or palpitations GI: No nausea, vomiting, or diarrhea : No history of dysuria, frequency or incontinence DENTAL 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: Negative for abnormal vaginal bleeding, abnormal vaginal discharge MUSCULOSKELETAL: See HPI SKIN: Negative for lesions, rash, and itching PSYCH: Negative for sleep disturbance, mood disorder and recent psychosocial stressors HEMATOLOGY/LYMPHOLOGY: Negative for prolonged bleeding, or swollen nodes, reports bruises easily ENDOCRINE: Negative for cold or heat intolerance, polyuria, polydipsia and goiter NEURO: No history of headaches, syncope, paralysis, seizures or tremors All other reviewed and negative other than HPI. OBJECTIVE: BP 114/70 Pulse 86 Resp 18 Ht 165 cm (5' 4.96) Wt 59.2 kg (130 lb 9.6 oz) LMP 03/23/2024 (Exact Date) SpO2 98% BMI 21.76 kg/m? . Vital signs reviewed by this provider. APPEARANCE Well appearing, alert, in no acute distress, well-hydrated, well nourished. EYES conjunctiva and sclera normal. EARS External ears normal, canals clear NECK Supple, no adenopathy; thyroid symmetric, normal size, no bruits HEART RRR with normal S1 and S2, no murmurs, no gallops, no JVD appreciated LUNG clear to auscultation. No wheezes, rhonchi or rales ABDOMEN bowel sounds normoactive, no bruits, soft, non-tender, non-distended EXTREMITIES Extremities normal, No deformities, No skin discoloration, and No edema SKIN Skin color, texture, turgor normal, no suspicious rashes or lesions to exposed skin RIGHT WRIST: No obvious deformity, erythema, ecchymosis or swelling. FROM Reports discomfort with flexion and extension. Mild TTP over dorsal wrist Depression Screening Never done Anxiety Screening Never done Influenza Vaccine(1) due on 01/19/2025 Covid-19 Vaccine( season) due on 05/05/2025 Cervical Cancer Screening due on 04/17/2027 DTaP,Tdap,Td Vaccine(9 - Td or Tdap) due on 12/04/2032 Hepatitis B Vaccine Completed HPV Vaccine Completed Hepatitis C Screening Completed HIV Screening Completed ASSESSMENT/PLAN: 1. Encounter for medical examination to establish care - ICD9: V70.9, ICD10: Z00.00 (primary diagnosis) - Counseled on healthy diet and regular exercise - Follow up for annual exam in one year 2. Screening for depression - ICD9: V79.0, ICD10: Z13.31 - DEPRESSION SCREENING 3. Encounter for screening examination for other mental health and behavioral disorders - ICD9: V79.8, ICD10: Z13.39 - ANXIETY SCREENING 4. Right wrist pain - ICD9: 719.43, ICD10: M25.531 - possible tendonitis - no red flag symptoms or exam findings - red flag symptoms discussed - stretches daily - continue OTC supportive measures - follow-up if symptoms fail to improve to ER with red (more content not included)...[facility]10-14-[facility] History of Present illness Narrative* Caryn Strauss APRN.KELLY - 05/05/2024 8:03 AM EDT 05/05/2024 Patient presents with: Establish Care SUBJECTIVE: This is a 29 year old that is here today for Above Complaints. Depression: takes Zoloft as prescribed. Works well to control symptoms. Does not attend counseling.Denies SI, HI or insomnia ONSET: one month LOCATION: right wrist DURATION: more constant the last couple for days CHARACTERISTICS: sharp AGGRAVATING FEATURES: picking up things ALLEVIATING FEATURES: massage has helped, chiropractor adjustment, ice and brace at night RADIATION: can go up into [employer] Works as an [employer] and thinks related to over use Denies past/present injury/surgery, redness, warmth, swelling, numbness, tingling or weakness Past medical, surgical, family, social hx, medications, allergies and health maintenance reviewed and updated. PAST MEDICAL HISTORY Diagnosis Date Mononucleosis 10/27/2014 Scoliosis of cervical spine Unspecified asthma(493.90) has not used inhaler since 2016 ALLERGIES Mold and Ragweed MEDICATIONS Current Outpatient Medications Medication Sig meclizine (ANTIVERT) 25 mg tab Take 1 tablet by mouth three times a day as needed. sertraline (ZOLOFT) 25 mg tablet Take 1 tablet by mouth once daily. prental multivitamin 27 mg iron- 800 mcg tablet Take 1 tablet by mouth once daily. No current facility-administered medications for this visit. Medications and allergies reviewed by this provider. SOCIAL HISTORY Social History Tobacco Use Smoking status: Never Smokeless tobacco: Never Vaping Use Vaping status: Never Used Substance Use Topics Alcohol use: Yes Comment: socially Drug use: No REVIEW OF SYSTEMS GENERAL: No weight loss, malaise or fevers HEENT: Negative for frequent or significant headaches, No changes in hearing or vision, no nose bleeds or other nasal problems NECK: Negative for lumps, goiter, pain and significant neck swelling RESPIRATORY: Negative for cough, hemoptysis, wheezing, COPD, dyspnea or shortness of breath CARDIOVASCULAR: Negative for chest pain, leg swelling, hypertension, CHF or palpitations GI: No nausea, vomiting, or diarrhea : No history of dysuria, frequency or incontinence DENTAL 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: Negative for abnormal vaginal bleeding, abnormal vaginal discharge MUSCULOSKELETAL: See HPI SKIN: Negative for lesions, rash, and itching PSYCH: Negative for sleep disturbance, mood disorder and recent psychosocial stressors HEMATOLOGY/LYMPHOLOGY: Negative for prolonged bleeding, or swollen nodes, reports bruises easily ENDOCRINE: Negative for cold or heat intolerance, polyuria, polydipsia and goiter NEURO: No history of headaches, syncope, paralysis, seizures or tremors All other reviewed and negative other than HPI. OBJECTIVE: BP 114/70 Pulse 86 Resp 18 Ht 165 cm (5' 4.96) Wt 59.2 kg (130 lb 9.6 oz) LMP 03/23/2024(Exact Date) SpO2 98% BMI 21.76 kg/m . Vital signs reviewed by this provider. APPEARANCE Well appearing, alert, in no acute distress, well-hydrated, well nourished. EYES conjunctiva and sclera normal. EARS External ears normal, canals clear NECK Supple, no adenopathy; thyroid symmetric, normal size, no bruits HEART RRR with normal S1 and S2, no murmurs, no gallops, no JVD appreciated LUNG clear to auscultation. No wheezes, rhonchi or rales ABDOMEN bowel sounds normoactive, no bruits, soft, non-tender, non-distended EXTREMITIES Extremities normal, No deformities, No skin discoloration, and No edema SKIN Skin color, texture, turgor normal, no suspicious rashes or lesions to exposed skin RIGHT WRIST: No obvious deformity, erythema, ecchymosis or swelling. FROM Reports discomfort with flexion and extension. Mild TTP over dorsal wrist Depression Screening Never done Anxiety Screening Never done Influenza Vaccine(1) due on 01/19/2025 Covid-19 Vaccine( - 2023- season) due on 05/05/2025 Cervical Cancer Screening due on 04/17/2027 DTaP,Tdap,Td Vaccine(9 - Td or Tdap) due on 12/04/2032 Hepatitis B Vaccine Completed HPV Vaccine Completed Hepatitis C Screening Completed HIV Screening Completed ASSESSMENT/PLAN: 1. Encounter for medical examination to establish care - ICD9: V70.9, ICD10: Z00.00 (primary diagnosis) - Counseled on healthy diet and regular exercise - Follow up for annual exam in one year 2. Screening for depression - ICD9: V79.0, ICD10: Z13.31 - DEPRESSION SCREENING 3. Encounter for screening examination for other mental health and behavioral disorders - ICD9: V79.8, ICD10: Z13.39 - ANXIETY SCREENING 4. Right wrist pain - ICD9: 719.43, ICD10: M25.531 - possible tendonitis - no red flag symptoms or exam findings - red flag symptoms discussed - stretches daily - continue OTC supportive measures - follow-up if symptoms fail to improve to ER with red flag symptoms 5. Depression, unspecified depression type - ICD9: 311, ICD10: F32.A - stable on current regime - follow-up as needed Caryn Strauss APRN.CNP Prescription instructions reviewed with patient as applicable. Patient advised if symptoms do not improve or if symptoms worsen sooner, to contact their primary care physician. Potential red flag symptoms discussed with the patient. Reviewed appropriate action plan to take if red flag symptoms occur. Patient agreeable to treatment plan. documented in this encounterTr[facility]09-[facility]24 NoteHNO ID: [id number] Author: MACHELLE WEEMS APRN.CNM Service: ? Author Type: Installers Mechanical Type: Progress Notes Filed: 04/17/2024 11:21 Note Text: Egg Grader offered: Patient declines. Mosley is a 29 year old who presents for an annual gynecologic exam without complaints. First period since was 03/23/24- very heavy and lasted 6 days Contraception: none/ condoms HPV vaccine: Yes Last Pap: 09/09/2020 normal HPV: N/A History of abnormal pap: No Last mammogram: never Sexually active: Yes History of STDS: None Pain with intercourse: No Postcoital bleeding: No Vaginal dryness: No OB History T1 L1 SAB0 IAB0 Ectopic0 Multiple0 Live Births1 [employer] History LMP: 03/23/2024 (Exact Date), Having periods Age at Menarche: Age at First : Age at Menopause: [employer] History Comments: Sexual Activity: Yes; Male Contraception: Pill PAST MEDICAL HISTORY Diagnosis Date Mononucleosis 10/27/2014 [...] Grandfather Stroke Paternal Grandfather Dementia Paternal Grandfather SOCIAL HISTORY Social History Tobacco Use Smoking status: Never Smokeless tobacco: Never Vaping Use Vaping status: Never Used Substance Use Topics Alcohol use: Yes Comment: socially Drug use: No REVIEW OF SYSTEMS Abdomen: No abdominal pain, nausea, vomiting, diarrhea, or constipation. No bloating, early satiety, indigestion, or increased flatulence. Bladder: No dysuria, gross hematuria, urinary frequency, urinary urgency, or incontinence. Breast: No breast lumps, nipple d/c, overlying skin changes, redness or skin retraction. Allergies and current medication updated:Yes SENSITIVE EXAM: The sensitive examination was discussed with the Patient or Patient's Authorized Circuit Board Drafter. As applicable, any other physician, advance practice provider, medical student, or other health professional student that will be observing or involved in the sensitive examination for educational or training purposes was discussed with the Patient or Authorized Circuit Board Drafter. The Patient or Authorized Circuit Board Drafter has agreed to proceed with the sensitive examination. (Sensitive examination includes inspection and/or palpation of the breasts, pelvis, prostate and anorectal regions). EXAM: BP 108/64 Ht 5' 4 (1.63m) Wt 131 lb (59.4kg) LMP 03/23/2024 BMI 22.47 kg/(m2). GENERAL: pleasant, female in no apparent distress HEENT: Normocephalic, atraumatic, mucus membranes moist, and no lesions NECK: Supple and full range of motion DERMATOLOGY: Normal and without lesions BREAST: soft, non-tender, symmetric, no dominant mass, normal nipple-areolar complex, no lymphadenopathy, no nipple discharge, and fibrocystic changes CHEST: Normal inspiratory effort ABDOMEN: soft, non-tender, and no masses PELVIC: external genitalia normal, normal Bartholin's glands, urethra, Bucks's glands, no vulvar lesions, no cervical lesions, good vaginal support, physiologic discharge present, normal appearing perineal body and perianal region BIMANUAL: uterus normal size, shape and consistency, no adnexal masses, non-tender, and no cervical motion tenderness RECTOVAGINAL: deferred. NEURO: alert and oriented x3,exam grossly non-focal EXTREMITIES: normal ASSESSMENT/PLAN: 1) Health maintenance: Pap done with reflex HPV. Nutrition, exercise and routine health maintenance exams reviewed. 2) Contraception: none. 3) STD screening: Declined STD check. 4) Thinking of decreasing and stopping Zoloft- discussed weaning process Follow up one year or sooner as needed Machelle Weems APRN.[facility]09-26-2024 History of Present illness Narrative* Machelle Weems APRN.[facility] - 04/17/2024 10:34 AM EDT Egg Grader offered: Patient declinesSulema Mosley is a 29 year old who presents for an annual gynecologic exam without complaints. First period since was 03/23/24- very heavy and lasted 6 days Contraception: none/ condoms HPV vaccine: Yes Last Pap: 09/09/2020 normal HPV: N/A History of abnormal pap: No Last mammogram: never Sexually active: Yes History of STDS: None Pain with intercourse: No Postcoital bleeding: No Vaginal dryness: No OB History T1 L1 SAB0 IAB0 Ectopic0 Multiple0 Live Births1 [employer] History LMP: 03/23/2024 (Exact Date), Having periods Age at Menarche: Age at First : Age at Menopause: [employer] History Comments: Sexual Activity: Yes; Male Contraception: Pill PAST MEDICAL HISTORY Diagnosis Date Mononucleosis 10/27/2014 Scoliosis of cervical spine Unspecified asthma(493.90) has not used inhaler since 2015 PAST SURGICAL HISTORY Procedure Laterality Date EXTRACTION, ERUPTED TOOTH OR EXPOSED ROOT (ELEVATION AND/OR FORCEPS REMOVAL) FAMILY HISTORY Problem Relation Age of Onset Skin Cancer Mother Heart Father triple bypass 50 Lung Cancer Maternal Grandmother other (bladder cancer) Maternal Grandfather No Known Problems Paternal Grandmother Heart Paternal Grandfather Stroke Paternal Grandfather Dementia Paternal Grandfather SOCIAL HISTORY Social History Tobacco Use Smoking status: Never Smokeless tobacco: Never Vaping Use Vaping status: Never Used Substance Use Topics Alcohol use: Yes Comment: socially Drug use: No REVIEW OF SYSTEMS Abdomen: No abdominal pain, nausea, vomiting, diarrhea, or constipation. No bloating, early satiety, indigestion, or increased flatulence. Bladder: No dysuria, gross hematuria, urinary frequency, urinary urgency, or incontinence. Breast: No breast lumps, nipple d/c, overlying skin changes, redness or skin retraction. Allergies and current medication updated:Yes SENSITIVE EXAM: The sensitive examination was discussed with the Patient or Patient's Authorized Circuit Board Drafter. As applicable, any other physician, advance practice provider, medical student, or other health professional student that will be observing or involved in the sensitive examination for educational or training purposes was discussed with the Patient or Authorized Circuit Board Drafter. The Patient or Authorized Circuit Board Drafter has agreed to proceed with the sensitive examination. (Sensitive examination includes inspection and/or palpation of the breasts, pelvis, prostate and anorectal regions). EXAM: BP 108/64 Ht 5' 4 (1.63m) Wt 131 lb (59.4kg) LMP 03/23/2024 BMI 22.47 kg/(m^2). GENERAL: pleasant, female in no apparent distress HEENT: Normocephalic, atraumatic, mucus membranes moist, and no lesions NECK: Supple and full range of motion DERMATOLOGY: Normal and without lesions BREAST: soft, non-tender, symmetric, no dominant mass, normal nipple-areolar complex, no lymphadenopathy, no nipple discharge, and fibrocystic changes CHEST: Normal inspiratory effort ABDOMEN: soft, non-tender, and no masses PELVIC: external genitalia normal, normal Bartholin's glands, urethra, Bucks's glands, no vulvar lesions, no cervical lesions, good vaginal support, physiologic discharge present, normal appearing perineal body and perianal region BIMANUAL: uterus normal size, shape and consistency, no adnexal masses, non- tender, and no cervicalmotion tenderness RECTOVAGINAL: deferred. NEURO: alert and oriented x3,exam grossly non-focal EXTREMITIES: normal ASSESSMENT/PLAN: 1) Health maintenance: Pap done with reflex HPV. Nutrition, exercise and routine health maintenance exams reviewed. 2) Contraception: none. 3) STD screening: Declined STD check. 4) Thinking of decreasing and stopping Zoloft- discussed weaning process Follow up one year or sooner as needed Machelle Weems APRN.CNM documented in this encounterTr[facility]24 Telephone encounter Note * Telephone Encounter - Rama Herrera RN - 02/15/2024 10:01 AM EDT Patient needs RX sent to [facility] Mail Order pharmacy. She may need a short term supply sent to local [facility]. Will check and let the office know if she does. Requested Prescriptions Pending Prescriptions Disp Refills sertraline (ZOLOFT) 25 mg tablet 90 tablet 3 Sig: Take 1 tablet by mouth once daily. Rama Herrera RN [facility]07-26-[facility]24 Miscellaneous Notes* Telephone Encounter - Rama Herrera RN - 02/15/2024 10:01 AM EDT Patient needs RX sent to [facility] Mail Order pharmacy. She may need a short term supply sent to local [facility]. Will check and let the office know if she does. Requested Prescriptions Pending Prescriptions Disp Refills sertraline (ZOLOFT) 25 mg tablet 90 tablet 3 Sig: Take 1 tablet by mouth once daily. Rama Herrera RN documented in this encounterTr[facility] System07-24-2024 History of Present illness Narrative* Brandt Kohler PT - 02/13/2024 11:17 AM EDT Episode Visit Count: 6 Therapist That Will Accept/Oversee The Plan Of Care: Bri Miles, PT, DPT Start of Care Date: 12/04/23 Onset Date: 03/05/23 Patient Identified by Name and Date of : Yes REHABILITATION AND SPORTS THERAPY PHYSICAL THERAPY DISCONTINUANCE OF CARE PLAN OF CARE UPDATE: Assessment: Melany Mace is discontinued from Physical Therapy services due to goal achievement and maximal benefit.. Patient was seen for 6 visits from Start of Care Date: 12/04/23 to 02/13/2024nd treatment included: Therapeutic exercise, Neuromuscular re-education, Manual therapy, and Self-mcc management. Patient meeting most goals and independent with self management regarding bladder urgency control and fluid intake recommendations. She will be successful upon discharge with continued maintenance plan. Goals for Episode of Care: created on 12/04/23 through 03/25/24 Patient demonstrates independence and compliance with home exercise program.: MET Patient displays improved range of motion, coordination, and muscle dynamics of pelvic floor as evidenced by the ability to lengthen without paradoxical contraction at least 80% of the time to normalize bladder/bowel function; reduce pelvic pain.: MET Patient reports 80% less bladder urgency to avoid incontinent episodes.: IN PROGRESS 50% improvement Patient reports increased water intake to 64 ounces/day to promote bladder and bowel health.: IN PROGRESS Patient demonstrates ability to perform diaphragmatic breathing and relaxation practice independently to allow for decreased muscle tightness, decreased pain, and improved bladder/bowel function.: MET Patient displays decreased muscle spasms in levator ani, obturator internus, and superficial pelvicfloor muscles to allow for decreased pain levels, improved bladder/bowel function.: MET Patient will report decreased pain rating by 2 points to meet minimal clinical important differencefor numeric pain rating scale. : MET Patient Goals: Lessen urgency, be pain free or at least less pain SUBJECTIVE: . Patient reports bladder has been doing well, only going once during an all day concert event despite fluid intake. Functional Limitations: nothing Pain: Pain Pain Level: 0 PROMIS Scales 2024 12/29/2023 12/02/2023 Higher is Better Phys Func - Score 51 (within normal limits) 58 (within normal limits) 58 (within normal limits) Phys Func - Percentile 54 79 79 Self-Eff Symptom - Score 43 (Average) 47 (Average) 43 (Average) Self-Eff Symptom - Percentile 24 38 24 T-scores: mean of general population = 50. 5 points is clinically meaningfully difference Percentiles provide an indication of how the patient's score ranks in relation to the general population. Higher percentile rankings indicate better function/quality of life. 50th percentile is the average of the general population and indicates half of respondents had a worse score. OBJECTIVE MEASURES WITH LEVEL OF FUNCTION: Pelvic Floor Pain with penetration: No Difficulty starting stream: (only impacted when she needs to relax; 2x a week) Frequency of Urgency Episodes: 50% of the time she feels in control of this; anxiety driven (when in an unfamiliar environment and sitting for long periods of time can delay up to 15 minutes) Frequency of Leaks Secondary to Urge: none Daytime Frequency (hours): every 2-3 hours on average (avoiding just incase bathroom breaks and voiding prior to leaving house) Water : 32 oz at least Coffee: 1 cup Other beverage : 24 oz gatorade or body armor Difficulty evacuating / Excessive Straining: No Incomplete emptying: No Pelvic Floor Muscle Assessment Consent for pelvic assessment/testing and treatment: Patient was educated regarding pelvic floor physical therapy assessment/treatment which may include pelvic floor and girdle muscle assessment externally or internally (vaginal or rectal approach)., Patient verbalized consent for the above treatment approaches today. Patient understands they have control of the treatment and an opportunity to stop treatment at any time. Power: 3+ Endurance: 10 Reps: 10 Reps / Seconds: 6/10 Range of Motion: (slightly decreased) Ability to Lengthen pelvic floor: Yes Relaxation Postcontraction: Slow (improves with cues to control lengthening) Above Umbilicus (fingerwidth separation): 0.5 At Umbilicus (fingerwidth separation): 1.5 Below Umbilicus (fingerwidth separation): 0 Underlying CHALINO tissue tension: Good Diaphragmatic Breathing : Good Pelvic Floor Manual Assessment Tested Vaginally in : Supine/hooklying Levator Ani: Left (mild tension) Pelvic Region Sensation: Grossly Intact TREATMENT: Manual Therapy: 1: internal exam of PFM flexibility Skilled Intervention: Manual skills to improve joint mobility, ROM, and decrease pain. Utilized anatomy knowledge of the therapist, and assessment of patient's response to intervention. Neuromuscular Re-Education: 1: discussion over progress made thus far, review of goals 2: DR coordination assessment and internal assessment of PFM coordination/firing 3: PFM lengthening with breathing coordination 4: Quick flicks 5: PFM holds Skilled Intervention: Skilled judgment used to assess appropriate program for balance and coordination activity. Billing Manual TherapyTreatment Minutes: 8 Neuromuscular Re-Education Treatment Minutes: 30 Skilled Treatment Time Minutes (timed and untimed codes): 38 Total Session Time (minutes): 41 Session Start Time : 1117 Session Stop Time : 1158 Brandt Kohler PT documented in this encounterTrinity Health System07-08-2024 History of Present illness Narrative* Brandt Kohler PT - 01/28/2024 10:04 AM EDT Program_ID:[id number] Access Code: [email or web address] URL: [email or web address] Date: 01-28-2024 Prepared By: Bri Miles Program Notes Exercises - Supine Diaphragmatic Breathing - 10 x daily - 7 x weekly - 1 sets - 5-10 reps - Seated Pelvic Floor Contraction - 1 x daily - 7 x weekly - 1 sets - 5-10 reps - Seated Pelvic Floor Contraction - 1 x daily - 7 x weekly - 3 sets - 10 reps - Quadruped on Forearms Hip Extension - 1 x daily - 4 x weekly - 2 sets - 10 reps - Bridge with Hip Abduction and Resistance - 1 x daily - 4 x weekly - 1-2 sets - 10 reps - Supine Active Straight Leg Raise - 1 x daily - 4 x weekly - 1-2 sets - 10 reps - Clamshell with Resistance - 1 x daily - 4 x weekly - 1 sets - 10 reps - Standing Anti-Rotation Press with Anchored Resistance - 1 x daily - 4 x weekly - 2 sets - 10 reps - Standing March - 1 x daily - 7 x weekly - 1 sets - 10 reps Patient Education - cc Pelvic Floor - Diaphragmatic Breathing - cc Pelvic Floor - Lengthening - Get To Know Your Pelvic Floor- Female - Urinary Urge Control Techniques - Bladder Retraining - cc Pelvic Floor - Bladder Ernesto - Irritants - cc Pelvic Floor - Bladder Emptying Ideas * Brandt Kohler PT - 01/28/2024 9:27 AM EDT Episode Visit Count: 5 Therapist That Will Accept/Oversee The Plan Of Care: Bri Miles PT, DPT Start of Care Date: 12/04/23 Onset Date: 03/05/23 Patient Identified by Name and Date of : Yes REHABILITATION AND SPORTS THERAPY PHYSICAL THERAPY TREATMENT NOTE ASSESSMENT: Melany Mace tolerated the session with decreased endurance. She demonstrated improvements in TA recruitment in various functional positions including transition into sidelying with clams. She demonstrates progressive independence in maintaining neutral spine and pelvis with SLR and QPED activities. Due to appropriate challenge with new additions, HEP updated to include these. The patient will continue to benefit from ongoing skilled physical therapy to progress toward set goals. PLAN FOR NEXT VISIT: Progress Check; internal assessment/DR check SUBJECTIVE: Bladder is still doing well. Slower days at work get the best of her mentally, thinking of her bladder and making symptoms worse. 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 Kegel exercise every couple days. Pain: Pain Pain Level: 0 OBJECTIVE MEASURES WITH LEVEL OF FUNCTION: Following initial correction of maintaining neutral pelvis in supine with SLR and in QPED with hip ext, patient able to independently maintain Good TA recruitment bilaterally with new clam intervention in sidelying TREATMENT: Therapeutic Exercise: 1: *clam w/ TA and PFM x10 (green) 2: *QPED hip ext w/ TA 2x10 (modified to forearm support on standard height chair to reduce pressure on wrists) 3: *SLR w/ TA x10 bilat 4: *Bridge w/ ABD, green 5 reps x10 5: *Wall sit 10 sec w/ TA x5 6: *Multifidus Push 2x10 green band 7: *Standing march w/ TA 10 sec hold x10 bilat Skilled Intervention: Patient was educated in proper exercise technique and purpose for exercises. Reviewed and educated patient on additions/changes for home exercise program as above (*). Skilled judgment was used in selection of appropriate interventions. Provided written instruction for home exercise program to facilitate proper performance and compliance. Access Code: [email or web address] URL: [email or web address] Date: 01/28/2024 Prepared by: Brandt Kohler Exercises - Quadruped on Forearms Hip Extension - 1 x daily - 4 x weekly - 2 sets - 10 reps - 2-3 hold - Bridge with Hip Abduction and Resistance - 1 x daily - 4 x weekly - 1-2 sets - 10 reps - Supine Active Straight Leg Raise - 1 x daily - 4 x weekly - 1-2 sets - 10 reps - Clamshell with Resistance - 1 x daily - 4 x weekly - 1 sets - 10 reps - Standing Anti-Rotation Press with Anchored Resistance - 1 x daily - 4 x weekly - 2 sets - 10 reps - Standing September - 1 x daily - 7 x weekly - 1 sets - 10 reps - 10 hold Billing Therapeutic Exercise Treatment Minutes: 42 Skilled Treatment Time Minutes (timed and untimed codes): 42 Total Session Time (minutes): 42 Session Start Time : 929 Session Stop Time : 101 Brandt Kohler PT documented in this encounterTrinity Health System07-08-2024 NoteHNO ID: [id number] Author: BRANDT KOHLER PT Service: ? Author Type: Physical Therapist Type: Progress Notes Filed: 01/28/2024 10:14 Note Text: Episode Visit Count: 5 Therapist That Will Accept/Oversee The Plan Of Care: Bri Miles PT, DPT Start of Care Date: 12/04/23 Onset Date: 03/05/23 Patient Identified by Name and Date of : Yes REHABILITATION AND SPORTS THERAPY PHYSICAL THERAPY TREATMENT NOTE ASSESSMENT: Melany Mace tolerated the session with decreased endurance. She demonstrated improvements in TA recruitment in various functional positions including transition into sidelying with clams. She demonstrates progressive independence in maintaining neutral spine and pelvis with SLR and QPED activities. Due to appropriate challenge with new additions, HEP updated to include these. The patient will continue to benefit from ongoing skilled physical therapy to progress toward set goals. PLAN FOR NEXT VISIT: Progress Check; internal assessment/DR check SUBJECTIVE: Bladder is still doing well. Slower days at work get the best of her mentally, thinking of her bladder and making symptoms worse. 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 Kegel exercise every couple days. Pain: Pain Pain Level: 0 OBJECTIVE MEASURES WITH LEVEL OF FUNCTION: Following initial correction of maintaining neutral pelvis in supine with SLR and in QPED with hip ext, patient able to independently maintain Good TA recruitment bilaterally with new clam intervention in sidelying TREATMENT: Therapeutic Exercise: 1: *clam w/ TA and PFM x10 (green) 2: *QPED hip ext w/ TA 2x10 (modified to forearm support on standard height chair to reduce pressure on wrists) 3: *SLR w/ TA x10 bilat 4: *Bridge w/ ABD, green 5 reps x10 5: *Wall sit 10 sec w/ TA x5 6: *Multifidus Push 2x10 green band 7: *Standing march w/ TA 10 sec hold x10 bilat Skilled Intervention: Patient was educated in proper exercise technique and purpose for exercises. Reviewed and educated patient on additions/changes for home exercise program as above (*). Skilled judgment was used in selection of appropriate interventions. Provided written instruction for home exercise program to facilitate proper performance and compliance. Access Code: [email or web address] URL: [email or web address] Date: 01/28/2024 Prepared by: Brandt Kohler Exercises - Quadruped on Forearms Hip Extension - 1 x daily - 4 x weekly - 2 sets - 10 reps - 2-3 hold - Bridge with Hip Abduction and Resistance - 1 x daily - 4 x weekly - 1-2 sets - 10 reps - Supine Active Straight Leg Raise - 1 x daily - 4 x weekly - 1-2 sets - 10 reps - Clamshell with Resistance - 1 x daily - 4 x weekly - 1 sets - 10 reps - Standing Anti-Rotation Press with Anchored Resistance - 1 x daily - 4 x weekly - 2 sets - 10 reps - Standing March - 1 x daily - 7 x weekly - 1 sets - 10 reps - 10 hold Billing Therapeutic Exercise Treatment Minutes: 42 Skilled Treatment Time Minutes (timed and untimed codes): 42 Total Session Time (minutes): 42 Session Start Time : 929 Session Stop Time : 1011 Brandt Kohler [facility]06-24-2024 History of Present illness Narrative* Brandt Kohler, PT - 01/14/2024 12:30 PM EDT Program_ID:[id number] Access Code: [email or web address] URL: [email or web address] Date: 01-14-2024 Prepared By: Bri Miles Program Notes Exercises - Supine Diaphragmatic Breathing - 10 x daily - 7 x weekly - 1 sets - 5-10 reps - Seated Pelvic Floor Contraction - 1 x daily - 7 x weekly - 1 sets - 5-10 reps - Seated Pelvic Floor Contraction - 1 x daily - 7 x weekly - 3 sets - 10 reps - Seated Pelvic Floor Lengthening - 1 x daily - 7 x weekly - 1 sets - 5 reps - Beginner Front Arm Support - 1 x daily - 7 x weekly - 3 sets - 10 reps - Quadruped on Forearms Hip Extension - 1 x daily - 4 x weekly - 2 sets - 10 reps - Bridge with Hip Abduction and Resistance - 1 x daily - 4 x weekly - 1-2 sets - 10 reps - Supine Active Straight Leg Raise - 1 x daily - 4 x weekly - 1-2 sets - 10 reps Patient Education - cc Pelvic Floor - Diaphragmatic Breathing - cc Pelvic Floor - Lengthening - Get To Know Your Pelvic Floor- Female - Urinary Urge Control Techniques - Bladder Retraining - cc Pelvic Floor - Bladder Ernesto - Irritants - cc Pelvic Floor - Bladder Emptying Ideas * Brandt Kohler, PT - 01/14/2024 11:51 AM EDT Episode Visit Count: 4 Therapist That Will Accept/Oversee The Plan Of Care: Bri Miles, PT, DPT Start of Care Date: 12/04/23 Onset Date: 03/05/23 Patient Identified by Name and Date of : Yes REHABILITATION AND SPORTS THERAPY PHYSICAL THERAPY TREATMENT NOTE ASSESSMENT: Melany Mace tolerated the session with no issues. She demonstrated improvements in TA recruitment and coordination with LE in various functional positions. 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 The patient will continue to benefit from ongoing skilled physical therapy to progress toward set goals. PLAN FOR NEXT VISIT: core/hip, functional stabilization, progressing PFM PRN SUBJECTIVE: Has managed to delay bladder before leaving for work and holding off until about an hour into work before voiding again. Distraction is significantly helpful, noticing freq inc on slower work days. Still working on perineal massage though yes has continued to minimize pain with intercourse. Pain: Pain Pain Level: 0 OBJECTIVE MEASURES WITH LEVEL OF FUNCTION: Visible lack of neuromuscular control w/ gluteal eccentric mvmt in QPED position bilaterally Pelvic Floor Pain with penetration: No Urgency: (at least 50% of the time) TREATMENT: Therapeutic Exercise: 1: Prone alt UE/LE lift x8 2: *QPED hip ext w/ TA 2x10 (modified to forearm support on standard height chair to reduce pressure on wrists) 3: *SLR w/ TA x10 bilat 4: *Bridge w/ ABD, green 5 reps x10 5: review and update to HEP 6: HL september review Skilled Intervention: Patient was educated in proper exercise technique and purpose for exercises. Skilled judgment was used in selection of appropriate interventions. Provided written instruction for home exercise program to facilitate proper performance and compliance. Correct performance of therapeutic exercises was facilitated with verbal and tactile cuing. Self-Intermediate Management: 1: Education and handout given on toileting positioning for improved ease of bowel evacuation; PT recommendation of squatty potty purchase or utilizing step stool with similar height to promote effective squat position and facilitate pelvic floor relaxation and increased anorectal angle 2: education on role of DB in PFM relaxation, encouraged use of this with BM for improved elimination Skilled Intervention: Provided written instruction for home program to facilitate proper performance and compliance. Access Code: [email or web address] URL: [email or web address] Date: 01/14/2024 Prepared by: Brandt Kohler Exercises - Beginner Front Arm Support - 1 x daily - 7 x weekly - 3 sets - 10 reps - Quadruped on Forearms Hip Extension - 1 x daily - 4 x weekly - 2 sets - 10 reps - 2-3 hold - Bridge with Hip Abduction and Resistance - 1 x daily - 4 x weekly - 1-2 sets - 10 reps - Supine Active Straight Leg Raise - 1 x daily - 4 x weekly - 1-2 sets - 10 reps Billing Therapeutic Exercise Treatment Minutes: 37 Self-Care/Home Management Treatment Minutes: 6 Skilled Treatment Time Minutes (timed and untimed codes): 43 Total Session Time (minutes): 43 Session Start Time : 1152 Session Stop Time : 1235 Brandt Kohler PT documented in this encounterTr[facility] System06-24-2024 NoteHNO ID: [id number] Author: BRANDT KOHLER PT Service: ? Author Type: Physical Therapist Type: Progress Notes Filed: 01/14/2024 12:37 Note Text: Episode Visit Count: 4 Therapist That Will Accept/Oversee The Plan Of Care: Bri Miles PT, DPT Start of Care Date: 12/04/23 Onset Date: 03/05/23 Patient Identified by Name and Date of : Yes REHABILITATION AND SPORTS THERAPY PHYSICAL THERAPY TREATMENT NOTE ASSESSMENT: Melany Mace tolerated the session with no issues. She demonstrated improvements in TA recruitment and coordination with LE in various functional positions. 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 The patient will continue to benefit from ongoing skilled physical therapy to progress toward set goals. PLAN FOR NEXT VISIT: core/hip, functional stabilization, progressing PFM PRN SUBJECTIVE: Has managed to delay bladder before leaving for work and holding off until about an hour into work before voiding again. Distraction is significantly helpful, noticing freq inc on slower work days. Still working on perineal massage though ah yes has continued to minimize pain with intercourse. Pain: Pain Pain Level: 0 OBJECTIVE MEASURES WITH LEVEL OF FUNCTION: Visible lack of neuromuscular control w/ gluteal eccentric mvmt in QPED position bilaterally Pelvic Floor Pain with penetration: No Urgency: (at least 50% of the time) TREATMENT: Therapeutic Exercise: 1: Prone alt UE/LE lift x8 2: *QPED hip ext w/ TA 2x10 (modified to forearm support on standard height chair to reduce pressure on wrists) 3: *SLR w/ TA x10 bilat 4: *Bridge w/ ABD, green 5 reps x10 5: review and update to HEP 6: HL september review Skilled Intervention: Patient was educated in proper exercise technique and purpose for exercises. Skilled judgment was used in selection of appropriate interventions. Provided written instruction for home exercise program to facilitate proper performance and compliance. Correct performance of therapeutic exercises was facilitated with verbal and tactile cuing. Self-Intermediate Management: 1: Education and handout given on toileting positioning for improved ease of bowel evacuation; PT recommendation of squatty potty purchase or utilizing step stool with similar height to promote effective squat position and facilitate pelvic floor relaxation and increased anorectal angle 2: education on role of DB in PFM relaxation, encouraged use of this with BM for improved elimination Skilled Intervention: Provided written instruction for home program to facilitate proper performance and compliance. Access Code: [email or web address] URL: [email or web address] Date: 01/14/2024 Prepared by: Brandt Kohler Exercises - Beginner Front Arm Support - 1 x daily - 7 x weekly - 3 sets - 10 reps - Quadruped on Forearms Hip Extension - 1 x daily - 4 x weekly - 2 sets - 10 reps - 2-3 hold - Bridge with Hip Abduction and Resistance - 1 x daily - 4 x weekly - 1-2 sets - 10 reps - Supine Active Straight Leg Raise - 1 x daily - 4 x weekly - 1-2 sets - 10 reps Billing Therapeutic Exercise Treatment Minutes: 37 Self-Care/Home Management Treatment Minutes: 6 Skilled Treatment Time Minutes (timed and untimed codes): 43 Total Session Time (minutes): 43 Session Start Time : 1152 Session Stop Time : 1235 Brandt Kohler [facility]06-14-2024 Telephone encounter Note * Telephone Encounter - Machelle Weems APRN.CN - 01/04/2024 11:44 AM EDT She is fine to wait until yearly exam. Rx refilled! Machelle Weems APRN.CNM [facility]06-14-2024 Miscellaneous Notes* Telephone Encounter - Machelle Weems APRN.CNM - 01/04/2024 11:44 AM EDT She is fine to wait until yearly exam. Rx refilled! Machelle Weems APRN.CNM * Telephone Encounter - Nai Mosley RN - 01/04/2024 9:46 AM EDT Do you want patient to be seen on Sunday? Her annual exam is on 04/17/24. Nai Mosley RN [facility] Telephone encounter Note * Telephone Encounter - Nai Mosley RN - 01/04/2024 9:46 AM EDT Do you want patient to be seen on Sunday? Her annual exam is on 04/17/24. Nai Mosley RN [facility]06-10-2024 History of Present illness Narrative* Brandt Kohler, PT - 12/31/2023 10:54 AM EDT Program_ID:[id number] Access Code: [email or web address] URL: [email or web address] Date: 12-31-2023 Prepared By: Bri Miles Program Notes Exercises - Supine Diaphragmatic Breathing - 10 x daily - 7 x weekly - 1 sets - 5-10 reps - Seated Pelvic Floor Contraction - 1 x daily - 7 x weekly - 1 sets - 5-10 reps - Seated Pelvic Floor Contraction - 1 x daily - 7 x weekly - 3 sets - 10 reps - Seated Pelvic Floor Lengthening - 1 x daily - 7 x weekly - 1 sets - 5 reps - Prone Alternating Arm and Leg Lifts - 1 x daily - 4 x weekly - 1 sets - 12 reps - Supine Heel Slide - 1 x daily - 4 x weekly - 1 sets - 8 reps - Supine March - 1 x daily - 4 x weekly - 1 sets - 6 reps - Supine Bridge - 1 x daily - 4 x weekly - 2 sets - 10 reps Patient Education - cc Pelvic Floor - Diaphragmatic Breathing - cc Pelvic Floor - Lengthening - Get To Know Your Pelvic Floor- Female - Urinary Urge Control Techniques - Bladder Retraining - cc Pelvic Floor - Bladder Ernesto - Irritants - cc Pelvic Floor - Bladder Emptying Ideas * Brandt Kohler PT - 12/31/2023 10:17 AM EDT Episode Visit Count: 3 Therapist That Will Accept/Oversee The Plan Of Care: Bri Miles, PT, DPT Start of Care Date: 12/04/23 Onset Date: 03/05/23 Patient Identified by Name and Date of : Yes REHABILITATION AND SPORTS THERAPY PHYSICAL THERAPY TREATMENT NOTE ASSESSMENT: Melany Mace tolerated the session with decreased symptoms. She demonstrated improvements in pelvic floor flexibility with resolution of perineal burning with manual work. She Tolerates review and progression of kegel exercise well with mild spasm noted upon fatigue in L levator. Cuing with internal feedback beneficial in increased proprioception of mm contraction and relaxation.The patient will continue to benefit from ongoing skilled physical therapy to progress toward set goals. PLAN FOR NEXT VISIT: core/hip, functional stabilization, progressing PFM PRN SUBJECTIVE: Ah Yes WB lubricant came in. Made a world of difference with sexual activity, feeling pain initially but then virtually nothing afterwards. Pain: Pain Pain Location: Vaginal Description: Burning Frequency: (medical exam) OBJECTIVE MEASURES WITH LEVEL OF FUNCTION: Pelvic Floor Muscle Assessment Consent for pelvic assessment/testing and treatment: Patient was educated regarding pelvic floor physical therapy assessment/treatment which may include pelvic floor and girdle muscle assessment externally or internally (vaginal or rectal approach)., Patient verbalized consent for the above treatment approaches today. Patient understands they have control of the treatment and an opportunity to stop treatment at any time. Power: 3- (with VC to facilitate improved global contraction) Duration of Contraction: >3 seconds Range of Motion: Decreased Ability to Lengthen pelvic floor: Difficulty at first, but improves with cueing and practice Relaxation Postcontraction: Delayed Diaphragmatic Breathing : Good Pelvic Floor Manual Assessment Levator Ani: Bilateral (mild tension) Bulbocavernosus: Bilateral (mild tension) Superficial transverse perineal: Bilateral (mild tension R, mod tension and burning L) Deep transverse perineal: Bilateral (mod tension) Obturator internus: Bilateral (mild tension) TREATMENT: Manual Therapy: 1: internal assessment of PFM flexibility 2: STM/MFR to PFM Skilled Intervention: Manual skills to improve joint mobility, ROM, and decrease pain. Utilized anatomy knowledge of the therapist, and assessment of patient's response to intervention. Neuromuscular Re-Education: 1: internal assessment of PFM coordination 2: *Pt instructed in diaphragmatic breathing. Place one hand on chest and one hand on abdomen. Inhale through the nose for 4 seconds and exhale through pursed lips for 8 seconds. Allow belly to rise but not chest. Focusing on promoting coordination 3: *PFM lengthening with breathing coordination 4: *Quick flicks for urgency 5: *PFM holds to facilitate improved global recruitment with focus practice in relaxation Skilled Intervention: Skilled judgment used to assess appropriate program for balance and coordination activity. Reviewed and educated patient on additions/changes for home program as noted above with an (*). Provided written instruction for home program to facilitate proper performance and compliance. Correct performance of home program was facilitated with verbal, visual, and tactile cueing. Self-Intermediate Management: 1: discussed and review perineal massage, encouraged to complete in shower to improve compliance Skilled Intervention: Skilled judgment in the selection of proper modification for activity of daily living/home management based on clinical presentation, deficits, and needs. Access Code: [email or web address] URL: [email or web address] Date: 12/31/2023 Prepared by: Brandt Kohler Exercises - Supine Diaphragmatic Breathing - 10 x daily - 7 x weekly - 1 sets - 5-10 reps - Seated Pelvic Floor Contraction - 1 x daily - 7 x weekly - 1 sets - 5-10 reps - 10 hold - Seated Pelvic Floor Contraction - 1 x daily - 7 x weekly - 3 sets - 10 reps - Seated Pelvic Floor Lengthening - 1 x daily - 7 x weekly - 1 sets - 5 reps Billing Manual TherapyTreatment Minutes: 15 Neuromuscular Re-Education Treatment Minutes: 20 Self-Care/Home Management Treatment Minutes: 3 Skilled Treatment Time Minutes (timed and untimed codes): 38 Total Session Time (minutes): 38 Session Start Time : 1018 Session Stop Time : 1056 Brandt Kohler PT documented in this encounterTr[facility]06-10-2024 NoteHNO ID: [id number] Author: BRANDT KOHLER PT Service: ? Author Type: Physical Therapist Type: Progress Notes Filed: 12/31/2023 11:01 Note Text: Episode Visit Count: 3 Therapist That Will Accept/Oversee The Plan Of Care: Bri Miles PT, DPT Start of Care Date: 12/04/23 Onset Date: 03/05/23 Patient Identified by Name and Date of : Yes REHABILITATION AND SPORTS THERAPY PHYSICAL THERAPY TREATMENT NOTE ASSESSMENT: Melany Mace tolerated the session with decreased symptoms. She demonstrated improvements in pelvic floor flexibility with resolution of perineal burning with manual work. She Tolerates review and progression of kegel exercise well with mild spasm noted upon fatigue in L levator. Cuing with internal feedback beneficial in increased proprioception of mm contraction and relaxation. The patient will continue to benefit from ongoing skilled physical therapy to progress toward set goals. PLAN FOR NEXT VISIT: core/hip, functional stabilization, progressing PFM PRN SUBJECTIVE: Ah Yes WB lubricant came in. Made a world of difference with sexual activity, feeling pain initially but then virtually nothing afterwards. Pain: Pain Pain Location: Vaginal Description: Burning Frequency: (medical exam) OBJECTIVE MEASURES WITH LEVEL OF FUNCTION: Pelvic Floor Muscle Assessment Consent for pelvic assessment/testing and treatment: Patient was educated regarding pelvic floor physical therapy assessment/treatment which may include pelvic floor and girdle muscle assessment externally or internally (vaginal or rectal approach)., Patient verbalized consent for the above treatment approaches today. Patient understands they have control of the treatment and an opportunity to stop treatment at any time. Power: 3- (with VC to facilitate improved global contraction) Duration of Contraction: >3 seconds Range of Motion: Decreased Ability to Lengthen pelvic floor: Difficulty at first, but improves with cueing and practice Relaxation Postcontraction: Delayed Diaphragmatic Breathing : Good Pelvic Floor Manual Assessment Levator Ani: Bilateral (mild tension) Bulbocavernosus: Bilateral (mild tension) Superficial transverse perineal: Bilateral (mild tension R, mod tension and burning L) Deep transverse perineal: Bilateral (mod tension) Obturator internus: Bilateral (mild tension) TREATMENT: Manual Therapy: 1: internal assessment of PFM flexibility 2: STM/MFR to PFM Skilled Intervention: Manual skills to improve joint mobility, ROM, and decrease pain. Utilized anatomy knowledge of the therapist, and assessment of patient's response to intervention. Neuromuscular Re-Education: 1: internal assessment of PFM coordination 2: *Pt instructed in diaphragmatic breathing. Place one hand on chest and one hand on abdomen. Inhale through the nose for 4 seconds and exhale through pursed lips for 8 seconds. Allow belly to rise but not chest. Focusing on promoting coordination 3: *PFM lengthening with breathing coordination 4: *Quick flicks for urgency 5: *PFM holds to facilitate improved global recruitment with focus practice in relaxation Skilled Intervention: Skilled judgment used to assess appropriate program for balance and coordination activity. Reviewed and educated patient on additions/changes for home program as noted above with an (*). Provided written instruction for home program to facilitate proper performance and compliance. Correct performance of home program was facilitated with verbal, visual, and tactile cueing. Self-Intermediate Management: 1: discussed and review perineal massage, encouraged to complete in shower to improve compliance Skilled Intervention: Skilled judgment in the selection of proper modification for activity of daily living/home management based on clinical presentation, deficits, and needs. Access Code: [email or web address] URL: [email or web address] Date: 12/31/2023 Prepared by: Brandt Kohler Exercises - Supine Diaphragmatic Breathing - 10 x daily - 7 x weekly - 1 sets - 5-10 reps - Seated Pelvic Floor Contraction - 1 x daily - 7 x weekly - 1 sets - 5-10 reps - 10 hold - Seated Pelvic Floor Contraction - 1 x daily - 7 x weekly - 3 sets - 10 reps - Seated Pelvic Floor Lengthening - 1 x daily - 7 x weekly - 1 sets - 5 reps Billing Manual TherapyTreatment Minutes: 15 Neuromuscular Re-Education Treatment Minutes: 20 Self-Care/Home Management Treatment Minutes: 3 Skilled Treatment Time Minutes (timed and untimed codes): 38 Total Session Time (minutes): 38 Session Start Time : 1018 Session Stop Time : 1056 Brandt Kohler [facility]05-29-2024 History of Present illness Narrative* Brandt Kohler, PT - 12/19/2023 9:57 AM EDT Program_ID:[id number] Access Code: [email or web address] URL: [email or web address] Date: 12-19-2023 Prepared By: Bri Miles Program Notes Exercises - Supine Diaphragmatic Breathing - 10 x daily - 7 x weekly - 1 sets - 5-10 reps - Seated Pelvic Floor Lengthening - 1 x daily - 7 x weekly - 1 sets - 5 reps - Prone Alternating Arm and Leg Lifts - 1 x daily - 4 x weekly - 1 sets - 12 reps - Supine Heel Slide - 1 x daily - 4 x weekly - 1 sets - 8 reps - Supine March - 1 x daily - 4 x weekly - 1 sets - 6 reps - Supine Bridge - 1 x daily - 4 x weekly - 2 sets - 10 reps Patient Education - cc Pelvic Floor - Diaphragmatic Breathing - cc Pelvic Floor - Lengthening - Get To Know Your Pelvic Floor- Female - Urinary Urge Control Techniques - Bladder Retraining - cc Pelvic Floor - Bladder Ernesto - Irritants - cc Pelvic Floor - Bladder Emptying Ideas * Brandt Kohler, PT - 12/19/2023 9:02 AM EDT Episode Visit Count: 2 Therapist That Will Accept/Oversee The Plan Of Care: Bri Miles, PT, DPT Start of Care Date: 12/04/23 Onset Date: 03/05/23 Patient Identified by Name and Date of : Yes REHABILITATION AND SPORTS THERAPY PHYSICAL THERAPY TREATMENT NOTE ASSESSMENT: Melany Mace tolerated the session with expected muscle soreness. She demonstratednotable hip and core strength deficits upon further examination. This could contribute to patients reported cyclical tension that she feels in back and hips. She denies history of hypermobility, though not formally assessed patient unable to touch the ground with straightened knee and shows no evidence of genu recurvatum during passive SLR assessment. I believe addressing core stability will establish further muscular balance in lumbopelvic region and aide in pelvic floor recovery. The patient will continue to benefit from ongoing skilled physical therapy to progress toward set goals. PLAN FOR NEXT VISIT: assess response to HEP, discuss bladder urge suppression further PRN, internal assessment and manual work, determine need for pelvic wand (progress into functional stabilization PRN) SUBJECTIVE: Still waiting on Yes brand VM to be delivered. Tolerating exercises well. Has been trying to space out voids during work. Goes to chiropractor and massage therapist every 4 weeks. Has been on zoloft for 3 weeks, has a consult with women's behavioral health for further managementof anxiety. Pain: Pain Pain Level: (0/10 at rest) OBJECTIVE MEASURES WITH LEVEL OF FUNCTION: Pelvic Floor Muscle Assessment Diastasis Rectus Abdominis: Negative, Above Umbilicus, At Umbilicus, Below Umbilicus Above Umbilicus (fingerwidth separation): 1 At Umbilicus (fingerwidth separation): 1.5 Below Umbilicus (fingerwidth separation): 0.5 Underlying CHALINO tissue tension: Good LE Flexibility Flexibility: Hamstring Flexibility, Hip Flexor Flexibility, Piriformis Flexibility, Hip Internal Rotation Flexibility, Hip External Rotation Flexibility R Hamstring Flexibility: mild restrictions L Hamstring Flexibility: mild restrictions R Hip Flexor Flexibility: WFL L Hip Flexor Flexibility: WFL R Hip Internal Rotation Flexibility: WFL L Hip Internal Rotation Flexibility: WFL R Hip External Rotation Flexibility: WFL L Hip External Rotation Flexibility: WFL R Piriformis Flexibility: mild restrictions L Piriformis Flexibility: WFL LE Strength Trunk Strength: fair TA activation bilat R Hip Extension: 5/5 (visible lumbopelvic rotation) R Hip Flexion (L2): 4+/5 R Hip ABduction: 4+/5 R Hip ADduction: 4/5 R Hip Internal Rotation: 4+/5 R Hip External Rotation: 4+/5 R Knee Extension (L3): 5/5 R Knee Flexion: 5/5 L Hip Extension: 5/5 (visible lumbopelvic rotation) L Hip Flexion (L2): 4+/5 L Hip ABduction: 4+/5 L Hip ADduction: 4/5 L Hip Internal Rotation: 4+/5 L Hip External Rotation: 4+/5 L Knee Extension (L3): 5/5 L Knee Flexion: 5/5 TREATMENT: Therapeutic Exercise: 1: hip flexibility/strength assessment 2: *Prone alt UE/LE lift x8 3: DR approximation/TA coordination assessment 4: trial of SLR and HL september with TA 5: *Supine heel slide w/ TA brace x8 bilat 6: *HL March w/ TA brace x6 bilat 7: *Bridge w/ GS, pink 10 sec hold Skilled Intervention: Patient was educated in proper exercise technique and purpose for exercises. Reviewed and educated patient on additions/changes for home exercise program as above (*). Skilled judgment was used in selection of appropriate interventions. Correct performance of therapeutic exercises was facilitated with verbal, visual, and tactile cuing. Billing Therapeutic Exercise Treatment Minutes: 57 Skilled Treatment Time Minutes (timed and untimed codes): 57 Total Session Time (minutes): 57 Session Start Time : 0903 Session Stop Time : 1000 Brandt Kohler PT documented in this encounterTr[facility]05-29-[facility]24 NoteHNO ID: [id number] Author: BRANDT KOHLER PT Service: ? Author Type: Physical Therapist Type: Progress Notes Filed: 12/19/2023 11:12 Note Text: Episode Visit Count: 2 Therapist That Will Accept/Oversee The Plan Of Care: Bri Miles PT, DPT Start of Care Date: 12/04/23 Onset Date: 03/05/23 Patient Identified by Name and Date of : Yes REHABILITATION AND SPORTS THERAPY PHYSICAL THERAPY TREATMENT NOTE ASSESSMENT: Melany Mace tolerated the session with expected muscle soreness. She demonstrated notable hip and core strength deficits upon further examination. This could contribute to patients reported cyclical tension that she feels in back and hips. She denies history of hypermobility, though not formally assessed patient unable to touch the ground with straightened knee and shows no evidence of genu recurvatum during passive SLR assessment. I believe addressing core stability will establish further muscular balance in lumbopelvic region and aide in pelvic floor recovery. The patient will continue to benefit from ongoing skilled physical therapy to progress toward set goals. PLAN FOR NEXT VISIT: assess response to HEP, discuss bladder urge suppression further PRN, internal assessment and manual work, determine need for pelvic wand (progress into functional stabilization PRN) SUBJECTIVE: Still waiting on Yes brand VM to be delivered. Tolerating exercises well. Has been trying to space out voids during work. Goes to chiropractor and massage therapist every 4 weeks. Has been on zoloft for 3 weeks, has a consult with women's behavioral health for further management of anxiety. Pain: Pain Pain Level: (0/10 at rest) OBJECTIVE MEASURES WITH LEVEL OF FUNCTION: Pelvic Floor Muscle Assessment Diastasis Rectus Abdominis: Negative, Above Umbilicus, At Umbilicus, Below Umbilicus Above Umbilicus (fingerwidth separation): 1 At Umbilicus (fingerwidth separation): 1.5 Below Umbilicus (fingerwidth separation): 0.5 Underlying CHALINO tissue tension: Good LE Flexibility Flexibility: Hamstring Flexibility, Hip Flexor Flexibility, Piriformis Flexibility, Hip Internal Rotation Flexibility, Hip External Rotation Flexibility R Hamstring Flexibility: mild restrictions L Hamstring Flexibility: mild restrictions R Hip Flexor Flexibility: WFL L Hip Flexor Flexibility: WFL R Hip Internal Rotation Flexibility: WFL L Hip Internal Rotation Flexibility: WFL R Hip External Rotation Flexibility: WFL L Hip External Rotation Flexibility: WFL R Piriformis Flexibility: mild restrictions L Piriformis Flexibility: WFL LE Strength Trunk Strength: fair TA activation bilat R Hip Extension: 5/5 (visible lumbopelvic rotation) R Hip Flexion (L2): 4+/5 R Hip ABduction: 4+/5 R Hip ADduction: 4/5 R Hip Internal Rotation: 4+/5 R Hip External Rotation: 4+/5 R Knee Extension (L3): 5/5 R Knee Flexion: 5/5 L Hip Extension: 5/5 (visible lumbopelvic rotation) L Hip Flexion (L2): 4+/5 L Hip ABduction: 4+/5 L Hip ADduction: 4/5 L Hip Internal Rotation: 4+/5 L Hip External Rotation: 4+/5 L Knee Extension (L3): 5/5 L Knee Flexion: 5/5 TREATMENT: Therapeutic Exercise: 1: hip flexibility/strength assessment 2: *Prone alt UE/LE lift x8 3: DR approximation/TA coordination assessment 4: trial of SLR and HL march with TA 5: *Supine heel slide w/ TA brace x8 bilat 6: *HL September w/ TA brace x6 bilat 7: *Bridge w/ GS, pink 10 sec hold Skilled Intervention: Patient was educated in proper exercise technique and purpose for exercises. Reviewed and educated patient on additions/changes for home exercise program as above (*). Skilled judgment was used in selection of appropriate interventions. Correct performance of therapeutic exercises was facilitated with verbal, visual, and tactile cuing. Billing Therapeutic Exercise Treatment Minutes: 57 Skilled Treatment Time Minutes (timed and untimed codes): 57 Total Session Time (minutes): 57 Session Start Time : 09 Session Stop Time : 1000 [facility] of Present illness Narrative* Bri Miles PT - 12/04/2023 5:59 PM EDT Program_ID:[id number] Access Code: [email or web address] URL: [email or web address] Date: 12-04-2023 Prepared By: Bri Miles Program Notes Exercises - Supine Diaphragmatic Breathing - 10 x daily - 7 x weekly - 1 sets - 5-10 reps - Seated Pelvic Floor Lengthening - 1 x daily - 7 x weekly - 1 sets - 5 reps Patient Education - cc Pelvic Floor - Diaphragmatic Breathing - cc Pelvic Floor - Lengthening - Get To Know Your Pelvic Floor- Female - Urinary Urge Control Techniques - Bladder Retraining - cc Pelvic Floor - Bladder Ernesto - Irritants - cc Pelvic Floor - Bladder Emptying Ideas * Bri Miles PT - 12/04/2023 5:17 PM EDT Episode Visit Count: 1 Therapist That Will Accept/Oversee The Plan Of Care: Bri Miles PT, DPT Start of Care Date: 12/04/23 Onset Date: 03/05/23 Patient Identified by Name and Date of : Yes REHABILITATION AND SPORTS THERAPY PHYSICAL THERAPY EVALUATION PLAN OF CARE: Assessment: Melany Mace presents with chief complaint of pelvic pain and urinary urgency thatinterferes with altered sexual function, bladder function . She presents with impairments in coordination, overall function, range of motion, symptom management, and tissue tenderness. PROMIS (Patient-Reported Outcomes Measurement Information System) scores were reviewed and identified as within normal limits. Prognosis for therapy is Good due to: current objective clinical presentation, good overall health status, positive past response to therapy, good support system/ coping skills . Deficitslikely due to a combination of stress/anxiety, hormonal influence to vaginal tissue, scar tissue from childbirth, dietary factors, and poor bladder habits. She will benefit from skilled therapy services to meet the goals established for this plan of care as noted below. Goals for Episode of Care: created on 12/04/23 through 03/25/24 Patient demonstrates independence and compliance with home exercise program. Patient displays improved range of motion, coordination, and muscle dynamics of pelvic floor as evidenced by the ability to lengthen without paradoxical contraction at least 80% of the time to normalize bladder/bowel function; reduce pelvic pain. Patient reports 80% less bladder urgency to avoid incontinent episodes. Patient reports increased water intake to 64 ounces/day to promote bladder and bowel health. Patient demonstrates ability to perform diaphragmatic breathing and relaxation practice independently to allow for decreased muscle tightness, decreased pain, and improved bladder/bowel function. Patient displays decreased muscle spasms in levator ani, obturator internus, and superficial pelvicfloor muscles to allow for decreased pain levels, improved bladder/bowel function. Patient will report decreased pain rating by 2 points to meet minimal clinical important differencefor numeric pain rating scale. Patient Goals: Lessen urgency, be pain free or at least less pain Planned Interventions, Frequency, and Duration: Current Frequency: 1x every other week Duration: 16 weeks Total Number of Visits Planned: 9 Planned Treatment Interventions: Therapeutic exercise (67248), Neuromuscular re- education (51705), Therapeutic activities (80954), Manual therapy (84671), Self- mcc management (37996), Patient/Family/Caregiver Education, Body Mechanics Training PLAN FOR NEXT VISIT: Review recommendations and HEP, assign diaries, assess hips and abdomen Patient demonstrates good understanding of plan of care and treatment. The above goals and plan of care were discussed and agreed upon by patient/family. SUBJECTIVE: Patient presents with pelvic pain and urinary urgency. Reports she did pelvic floor therapy once before about 2 years ago (she is 9 months ) and it seemed to help. Lost progress with and . She has tried lubrication (store bought OTC) and position changes. Reports she recently started zoloft for anxiety and just started a new job. 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 Reports her libido has been awful. Believes some of her urgency is triggered by anxiety because she can wait longer at home. Pelvic pain and urgency Patient Goals: Lessen urgency, be pain free or at least less pain Functional Limitations: altered sexual function, bladder function Intake Information: Prescription present Previous Treatment: Pelvic Floor Physical Therapy Pain: Pain Pain Level: 7 Pain Location: Vaginal Description: Burning, Sharp (tearing) Frequency: Intermittent (with penetration) PROMIS Scales 12/02/2023 Higher is Better Phys Func - Score 58 (within normal limits) Phys Func - Percentile 79 Self-Eff Symptom - Score 43 (Average) Self-Eff Symptom - Percentile 24 T-scores: mean of general population = 50. 5 points is clinically meaningfully difference Percentiles provide an indication of how the patient's score ranks in relation to the general population. Higher percentile rankings indicate better function/quality of life. 50th percentile is the average of the general population and indicates half of respondents had a worse score. OBJECTIVE MEASURES WITH LEVEL OF FUNCTION: Pelvic Floor Menstruation: Has not yet resumed menstruation Control Method: none Pregnancies: 1 Births: 1 Vaginal Delivery: Tearing (2nd degree, pushed 30 minutes) Currently ?: Yes (would like to make it to a year) Aggravates Pain: [place] Pain with penetration: Pain during intercourse, Superficial (has not had a gynecological exam sincedelivery) Urinary/Bowel History : Urinary History, Bowel History Difficulty starting stream: Sometimes slow or intermittent stream: No Incomplete emptying: No Spraying: No Stress Incontinence: No Urgency: Yes Frequency of Urgency Episodes: All the time Frequency of Leaks Secondary to Urge: None Nocturia (times per night): (only if already up feeding baby) Fluid Intake: Water, Coffee, Other beverage Water : Not enough, 32 oz Coffee: Knows it's an irritant, 1 cup Other beverage : Body armour or gatorade 12-16 oz Daytime Voiding Interval: 1 hour Difficulty evacuating / Excessive Straining: No Incomplete emptying: Sometimes Bowel Movement Frequency: once every 2-3 days Bowel Movement Consistency ([place]) : 3: Like a sausage or snake but with cracks on its surface, 4: Like a sausage or snake, smooth and soft Bloating / abdominal pain: No Fecal incontinence: No Daily Dietary Fiber/ Food Intake: fruits and vegetables Bowel Aides / Supplements: Occasionally benefiber Pelvic Floor Muscle Assessment Consent for pelvic assessment/testing and treatment: Patient was educated regarding pelvic floor physical therapy assessment/treatment which may include pelvic floor and girdle muscle assessment externally or internally (vaginal or rectal approach)., Patient verbalized consent for the above treatment approaches today. Patient understands they have control of the treatment and an opportunity to stop treatment at any time. Pelvic Floor Muscle Assessment: PERFECT, Muscle Dynamics Power: 2 Fast Reps: 4 Contracton Pressure: Moderate squeeze, felt all the way around finger surface Duration of Contraction: >3 seconds Recruitment of pelvic floor muscles: Coordinated Range of Motion: Decreased Ability to Lengthen pelvic floor: Difficulty at first, but improves with cueing and practice (best with blossoming cue) Breathing Pattern : mod accessory mm use Diaphragmatic Breathing : Fair Pelvic Floor Manual Assessment Pelvic Floor Tenderness/Hyperactivity: Tested Vaginally in Tested Vaginally in : Supine/hooklying Levator Ani: Bilateral (mod tension, min TTP) Bulbocavernosus: Bilateral (mod tension, TTP) Superficial transverse perineal: Bilateral (mod tension, TTP) Ischiocavernosus: Bilateral (mod tension, TTP) Deep transverse perineal: Bilateral (mod tension, TTP) Iliococcygeus: Bilateral (mod tension, TTP) Obturator internus: Bilateral (mod tension, TTP, spasm L>R) Pubococcygeus: Bilateral (mod tension, TTP) Education: Education Learning Preferences: Demonstration, Explanation, Performance, Printed Materials Barriers: None Learning/educational needs: Lifestyle changes, Health promotion, Home exercise program, Plan of Care, Body Mechanics, Posture Education Provided: Yes, see treatment interventions for education provided Education Provided To: Patient Education Mode/Type: Demonstration, Explanation/Discussion, Literature/Printed Materials, Performance Response to Education/Teach Back: States/Identifies, Return Demonstration, Requires Review/Additional Education TREATMENT: PT Treatment Interventions: Self-Intermediate Management, Neuromuscular Re-Education Evaluation Evaluation Neuromuscular Re-Education: 1: Educated patient on reciprocal relationship between respiratory diaphragm and pelvic floor with role in pressure management. 2: *Pt instructed in diaphragmatic breathing. Place one hand on chest and one hand on abdomen. Inhale through the nose for 4 seconds and exhale through pursed lips for 8 seconds. Allow belly to rise but not chest. Focusing on promoting coordination 3: *PFM lengthening with breathing coordination 4: *Quick flicks for urgency Skilled Intervention: Skilled judgment used to assess appropriate program for balance and coordination activity. Provided written instruction for home program to facilitate proper performance and compliance. Correct performance of home program was facilitated with verbal, visual, and tactile cueing. Patient education as noted. Self-Intermediate Management: 1: *Educated patient on urge control techniques and retraining bladder 2: *Educated patient on general hydraton guidelines, fluid spacing, and influence on bladder 3: *Brief education on bladder irritants 4: *Recommended vaginal moisturizer for tissue hydration and appropriate lubricant 5: *Educated patient on tips to help empty bladder and start the stream 6: *Recommended book Come as You Are and discussed impact of stress and environment on pelvic floor 7: *Brief instruction in perneal scar work for home Skilled Intervention: Skilled judgment in the selection of proper modification for activity of daily living/home management based on clinical presentation, deficits, and needs. Educated the patient regarding recommendations and provided written instruction to facilitate compliance. Provided written instruction for activities of daily living techniques to facilitate proper performance and compliance. Reviewed patient specific diagnosis in relation to activities of daily living/home management. Access Code: [email or web address] URL: [email or web address] Date: 12/04/2023 Prepared by: Bri Miles Exercises - Supine Diaphragmatic Breathing - 10 x daily - 7 x weekly - 1 sets - 5-10 reps - Seated Pelvic Floor Lengthening - 1 x daily - 7 x weekly - 1 sets - 5 reps Patient Education - cc Pelvic Floor - Diaphragmatic Breathing - cc Pelvic Floor - Lengthening - Get To Know Your Pelvic Floor- Female - Urinary Urge Control Techniques - Bladder Retraining - cc Pelvic Floor - Bladder Ernesto - Irritants - cc Pelvic Floor - Bladder Emptying Ideas Billing * Evaluation Low Complexity: 1 Unit Neuromuscular Re-Education Treatment Minutes: 10 Self-Care/Home Management Treatment Minutes: 29 Skilled Treatment Time Minutes (timed and untimed codes): 57 Total Session Time (minutes): 57 Session Start Time : 1718 Session Stop Time : 1815 Bri Miles PT documented in this encounterTrinity [facility] System05-14-2024 NoteHNO ID: [id number] Author: BRI MILES PT Service: ? Author Type: Physical Therapist Type: Progress Notes Filed: 12/04/2023 18:23 Note Text: Episode Visit Count: 1 Therapist That Will Accept/Oversee The Plan Of Care: Bri Miles PT, DPT Start of Care Date: 12/04/23 Onset Date: 03/05/23 Patient Identified by Name and Date of : Yes REHABILITATION AND SPORTS THERAPY PHYSICAL THERAPY EVALUATION PLAN OF CARE: Assessment: Melany Mace presents with chief complaint of pelvic pain and urinary urgency that interferes with altered sexual function, bladder function . She presents with impairments in coordination, overall function, range of motion, symptom management, and tissue tenderness. PROMIS? (Patient-Reported Outcomes Measurement Information System) scores were reviewed and identified as within normal limits. Prognosis for therapy is Good due to: current objective clinical presentation, good overall health status, positive past response to therapy, good support system/ coping skills . Deficits likely due to a combination of stress/anxiety, hormonal influence to vaginal tissue, scar tissue from childbirth, dietary factors, and poor bladder habits. She will benefit from skilled therapy services to meet the goals established for this plan of care as noted below. Goals for Episode of Care: created on 12/04/23 through 03/25/24 Patient demonstrates independence and compliance with home exercise program. Patient displays improved range of motion, coordination, and muscle dynamics of pelvic floor as evidenced by the ability to lengthen without paradoxical contraction at least 80% of the time to normalize bladder/bowel function; reduce pelvic pain. Patient reports 80% less bladder urgency to avoid incontinent episodes. Patient reports increased water intake to 64 ounces/day to promote bladder and bowel health. Patient demonstrates ability to perform diaphragmatic breathing and relaxation practice independently to allow for decreased muscle tightness, decreased pain, and improved bladder/bowel function. Patient displays decreased muscle spasms in levator ani, obturator internus, and superficial pelvic floor muscles to allow for decreased pain levels, improved bladder/bowel function. Patient will report decreased pain rating by 2 points to meet minimal clinical important difference for numeric pain rating scale. Patient Goals: Lessen urgency, be pain free or at least less pain Planned Interventions, Frequency, and Duration: Current Frequency: 1x every other week Duration: 16 weeks Total Number of Visits Planned: 9 Planned Treatment Interventions: Therapeutic exercise (93408), Neuromuscular re-education (73173), Therapeutic activities (39532), Manual therapy (24079), Self-mcc management (94437), Patient/Family/Caregiver Education, Body Mechanics Training PLAN FOR NEXT VISIT: Review recommendations and HEP, assign diaries, assess hips and abdomen Patient demonstrates good understanding of plan of care and treatment. The above goals and plan of care were discussed and agreed upon by patient/family. SUBJECTIVE: Patient presents with pelvic pain and urinary urgency. Reports she did pelvic floor therapy once before about 2 years ago (she is 9 months ) and it seemed to help. Lost progress with and . She has tried lubrication (store bought OTC) and position changes. Reports she recently started zoloft for anxiety and just started a new job. 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 Reports her libido has been awful. Believes some of her urgency is triggered by anxiety because she can wait longer at home. Pelvic pain and urgency Patient Goals: Lessen urgency, be pain free or at least less pain Functional Limitations: altered sexual function, bladder function Intake Information: Prescription present Previous Treatment: Pelvic Floor Physical Therapy Pain: Pain Pain Level: 7 Pain Location: Vaginal Description: Burning, Sharp (tearing) Frequency: Intermittent (with penetration) PROMIS Scales 12/02/2023 Higher is Better Phys Func - Score 58 (within normal limits) Phys Func - Percentile 79 Self-Eff Symptom - Score 43 (Average) Self-Eff Symptom - Percentile 24 T-scores: mean of general population = 50. 5 points is clinically meaningfully difference Percentiles provide an indication of how the patient's score ranks in relation to the general population. Higher percentile rankings indicate better function/quality of life. 50th percentile is the average of the general population and indicates half of respondents had a worse score. OBJECTIVE MEASURES WITH LEVEL OF FUNCTION: Pelvic Floor Menstruation: Has not yet resumed menstruation Control Method: none Pregnancies: 1 Births: 1 Vaginal Delivery: Tearing (2nd degree, pushed 30 minutes) Currently ?: Yes (would like to make it to (more content not included)...[facility]05-06-2024 History of Present illness Narrative* Dank MACO Carty.CNM - 11/26/2023 11:55 AM EDT Melany Mace is a 28 year old female who presents for problem visit of anxiety. HPI: 03/01/23 (8 months ago) and feels that anxiety has continued to increase over the past couple of months. She reports having increased thoughts and worry over possible scenarios of doom on herand baby. She reports feeling like she has continued thoughts on situations such as getting into car accidents, fires in the house, kidnapping of her and/or baby. Feels constant worry. Has returnedto work and baby being watched by family. Feels safe leaving her while going to work. Has difficulty taking to certain stores due to fear. Partner and mother have noticed a change in personality. Tearful during visit today. Denies any feelings of depression or sadness. Denies any history of depression, anxiety or bipolar diagnosis. Denies any SI/HI. Able to care for herself and infant. Still . Interested in referral for counseling. REVIEW OF SYSTEMS Abdomen: No bloating, early satiety, indigestion, or increased flatulence. No abdominal pain, nausea, vomiting, diarrhea, or constipation. Bladder: No dysuria, gross hematuria, urinary frequency, urinary urgency, or incontinence. Breast: No breast lumps, nipple d/c, overlying skin changes, redness or skin retraction. Expanded ROS: N/A Allergies and current medication updated:Yes EXAM: BP 110/78 Wt 127 lb 12.8 oz (58.0kg) LMP 05/17/2022 GENERAL: upset and emotional, female in mild distress HEENT: Normocephalic and atraumatic NECK: Supple and full range of motion DERMATOLOGY: Normal and without lesions BREAST: deferred CHEST: Normal inspiratory effort ABDOMEN: Deferred PELVIC: deferred BIMANUAL: deferred NEURO: alert and oriented x3,exam grossly non-focal EXTREMITIES: normal ASSESSMENT/PLAN: 1. care and examination - ICD9: V24.2, ICD10: Z39.2 (primary diagnosis) 2. Anxiety - ICD9: 300.00, ICD10: F41.9 3. care and examination of lactating mother - ICD9: V24.1, ICD10: Z39.1 - CONSULT TO [facility] - Zoloft 25 mg PO daily- start with 1/2 tab daily and increase to 1 tab in 1 week - Discussed possible Vistaril 25 mg PO PRN for increased anxiety- would like to evaluate mood afterstarting Zoloft - RTO 4 weeks DELMIS Meléndez APRN.CNM documented in this encounterTr[facility] System05-03-2024 Telephone encounter Note * Telephone Encounter - Rama Herrera RN - 11/23/2023 9:56 AM EDT Appointment given. Rama Herrera RN [facility]05-03-2024 Miscellaneous Notes* Telephone Encounter - Rama Herrera RN - 11/23/2023 9:56 AM EDT Appointment given. Rama Herrera RN * Telephone Encounter - Machelle Weems APRN.CNM - 11/23/2023 8:39 AM EDT Please contact patient and schedule appointment with me on Sunday11/26/23. Thank you. Machelle Weems APRN.CNM documented in this encounterTrinity [facility] System05-03-2024 Telephone encounter Note * Telephone Encounter - Machelle Weems APRN.CNM - 11/23/2023 8:39 AM EDT Please contact patient and schedule appointment with me on Sunday11/26/23. Thank you. Machelle Weems APRN.CNM [facility]04-01-2024 Miscellaneous Notes* Telephone Encounter - Rama Herrera RN - 10/22/2023 10:19 AM EDT Signed and faxed * Telephone Encounter - Kay Avery LPN - 10/18/2023 11:44 AM EDT Please see pt's [employer] message. Kay Avery LPN * Telephone Encounter - Jose England MD - 10/18/2023 11:41 AM EDT OK for CP to review next week Jose England MD * Telephone Encounter - Rama Herrera RN - 10/18/2023 11:22 AM EDT Received Health Visit Form. Filled out and to CP to sign. Rama Herrera RN * Telephone Encounter - Kay Avery LPN - 10/18/2023 11:04 AM EDT Please see pt's attached lab work and advise in CP absence. Kay Avery LPN documented in this encounterTrinity Health System02-02-2024 History of Present illness Narrative* Machelle Weems APRN.MANSI - 08/24/2023 3:18 PM EST Melany Mace is a 28 year old female who presents for problem visit of urinary urgency and continued pain with intercourse since delivery. She is 6 months post . Has tried to have intercourse and reports vaginal pain like a rug burn. Denies any bleeding or deep pain. Pelvic floor weakened. Denies any pain around laceration repair. Denies any vaginal discharge, odor, itching or pain. Only feeling pain during intercourse and has to stop. Continues to have urinary urgency. Denies dysuria or hematuria. Patient has a history of pelvic floor therapy for urinary urgency in the past and stated it helped with her sexual health. Interested in restarting therapy. 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 prental multivitamin 27 mg iron- 800 mcg tablet Take 1 tablet by mouth once daily. No current facility-administered medications for this visit. Allergies As of Date: 08/24/2023 Allergen Noted Reaction MOLD 04/12/2005 RAGWEED 04/12/2005 Fully Assessed 04/16/2023 REVIEW OF SYSTEMS Abdomen: No bloating, early satiety, indigestion, or increased flatulence. No abdominal pain, nausea, vomiting, diarrhea, or constipation. Bladder: No dysuria, gross hematuria, urinary frequency, urinary urgency, or incontinence. Breast: No breast lumps, nipple d/c, overlying skin changes, redness or skin retraction. Expanded ROS: N/A Allergies and current medication updated:Yes EXAM: LMP 05/17/2022 GENERAL: pleasant, female in no apparent distress HEENT: Normocephalic and atraumatic NECK: Supple and full range of motion DERMATOLOGY: Normal and without lesions BREAST: deferred CHEST: Normal inspiratory effort ABDOMEN: Deferred PELVIC: deferred BIMANUAL: deferred NEURO: alert and oriented x3,exam grossly non-focal EXTREMITIES: normal ASSESSMENT/PLAN: 1. Other specified dyspareunia - ICD9: 625.0, ICD10: N94.19 (primary diagnosis) - CONSULT TO PHYSICAL THERAPY 2. Urinary urgency - ICD9: 788.63, ICD10: R39.15 - UA DIP- NEGATIVE 3. Vaginal pain - ICD9: 625.9, ICD10: R10.2 - Discussed using lubricant, position changes, etc RTO- as needed or for yearly exams Machelle Weems APRN.CNM documented in this encounterTrinity Health System12-05-2023 Miscellaneous Notes* Telephone Encounter - Krissy Galvan APRN.CNM - 06/26/2023 2:04 PM EST Can you send and medication link. Krissy Galvan APRN.CNM * Telephone Encounter - Kay Avery LPN - 06/26/2023 10:59 AM EST Please see pt's [employer] message and advise. Kay Avery LPN documented in this encounterTrinity Health System10-11-2023 Miscellaneous Notes* Telephone Encounter - Kay Avery LPN - 05/02/2023 11:25 AM EDT Letter created and faxed to number listed in [employer] message. Kay Avery LPN * Telephone Encounter - Machelle Weems APRN.CNM - 05/02/2023 9:56 AM EDT Please create letter stating date of delivery, type of delivery, lifting restrictions of 25 lbs. Thank you. Machelle Weems APRN.MANSI * Telephone Encounter - Kay Avery LPN - 05/02/2023 7:51 AM EDT Please review pt's [employer] message and advise Kay Avery LPN documented in this encounterTrinity Health System09-25-2023 History of Present illness Narrative* Machelle Weems APRN.CNM - 04/16/2023 9:27 AM EDT VISIT Melany Mace is a 28 year old year old here for visit. Delivery Summary: by CP on 03/01/2023 ROS/ Recovery: Feeding: Breast feeding problems: None Menses since delivery: None Menstrual pattern prior to : Regular periods [place] since delivery: Resumed x 1- painful with [...] external genitalia normal, normal Bartholin's glands, urethra, Bucks's glands, no vulvar lesions, no cervical lesions, [...] RTC for annual exams and PRN Machelle Weems APRN.CNM documented in this encounterTrinity Health System08-23-2023 History of Present illness Narrative* Machelle Weems APRN.CNM - 03/14/2023 9:32 AM EDT EARLY VISIT Melany Mace is a 28 year old here for [...] issues Sleep: no sleep concerns, feels rested [place] since delivery: Not resumed Emotional support: Yes [...] 6 week visit and as needed Machelle Weems APRN.CNM documented in this encounterTrinity Health System08-12-2023 Progress note Author Sofy Bradshaw [facility] March 03, 2023 11:13am Note Date/Time March 03, 2023 11 :13am [facility] Medical Records Department [address] [place] [address] Progress Note - OBGYN 03/03/23 1111 MR#: [id number] Acct: [id number] Name: MELANY MACE Rep #:[id number] : 1995 28 From: Sofy Bradshaw DO PCP: Dr. Efewongbe Oleghe, MD Status:A DM IN [facility] Subject[facility] Subjective Patient is doing well. Minimal cramping. She denies chest pain, shortness of breath, leg pain, lightheadedness, dizziness. Lochia is normal. She is pumping. She is tolerating a regular diet without nausea or vomiting. She is ambulating and voiding without difficulty. She is desires discharge today. Objective Data Objective Data Vital Signs: Vital Signs Temp Pulse Resp BP Pulse Ox O2 Del Method 97.4 F L 83 16 100/66 98 Room Air 03/03/23 08:00 03/03/23 08:00 03/03/23 08:00 03/03/23 08:00 03/03/23 01:58 03/03/23 01:58 Oxygen Delivery Method Room Air Weight: 163 lb Body Mass Index (BMI) 27.9 Intake & Output: Intake and Output for Last 24 Hours 03/01/23 03/02/23 03/03/23 23:59 23:59 23:59 Intake Total 2564.17 / 2564.17 Output Total 700 / 700 400 / 400 Balance 1864.17 / 1864.17 -400 / -400 Lab / Micro Data 02/28/23 19:25 Physical Exam Const alert and no apparent distress General Appearance: comfortable Resp normal respiratory effort GI soft to palpation, non-tender and non-distended GI Narrative: FF Extremity normal to inspection and no calf tenderness Assessment & Plan (1) Laceration, obstetrical, second degree: (2) Care and examination of lactating mother: (3) (spontaneous vaginal delivery): PLAN: Patient is day 2 from a vaginal delivery. She is doing well and desires discharge. Home-going instructions reviewed. Has follow-up in the office in 2 weeks. 03/03/23 1113 <Electronically signed by Sofy Bradshaw DO> Cosigner Signature (if applicable): CC: ~ Signed [facility] Work Phone: 1(598) 446-302908-11-2023 Discharge summary Author Machelle Weems [facility] March 02, 2023 7:07am Note Date/Time March 02, 2023 7: 07am [facility] Medical Records Department [facility] [place] [address] Instructions for Home/Discharge Instructions 03/02/23705 MR#: [id number] Acct: [id number] Name: MELANY AMCE Rep #:[id number] : 1995 28 From: Machelle Weems CNM PCP: Dr. Yousif Hagan MD Status:A DM IN Discharge Instructions Diet Discharge Diet: No restrictions Activity Discharge Activity: Return to Normal Activity, May Shower and May Take a Tub Bath May resume sexual activity in: 4-6 weeks Weight Bearing Status: Weight bearing as tolerated Dressing / Incision Call your doctor if you observe: Fever of 101 or Higher, Inability to urinate, Using more than 1 pad per hour, Shortness of breath, Dizziness, Swelling in the ankles, Chest pain, Calf discomfort and Uncontrolled pain Follow Up Care Please Follow Up With: Machelle Weems CNM When: Within 10 days Test Results: Test results from this visit will be discussed in further detail at your follow- up appointment, if applicable. Discharge Plan Admission Admit Date/Time: 02/28/23 18:50 Primary Reason for Your Visit: Labor and Delivery Attending Provider: Machelle Weems Primary Care Provider: Yousif Hagan Discharge Orders/Prescriptions Prescriptions: Continued Alive Daily Support 180 mcg-25 mg- 25 mg tablet,chewable 1 tab PO DAILY Discontinued aspirin [Susie Chewable Aspirin] 81 mg tablet,chewable 162 mg PO DAILY loratadine [Claritin] 10 mg tablet 10 mg PO DAILY Referrals / Follow Up: Yousif Hagan MD [Primary Care Provider] - 03/02/23706<Electronically signed by Machelle Weems CNM>Machelle Weems CNM CC: Dr. Yousif Hagan MD ~ Signed [facility] Work Phone: 1(652) 152-876308-11-2023 Progress note Author Machelle Weems [facility] March 02, 2023 7:06am Note Date/Time March 02, 2023 7: 06am [facility] Medical Records Department [address] [place] [id number] Progress Note - OBGYN 03/02/23 0702 MR#: [id number] Acct: [id number] Name: MELANY MACE Rep #:[id number] : 1995 28 From: Machelle Weems CNM PCP: Dr. Yousif Hagan MD Status:A DM IN Location: [id number] Subjective Subjective Patient seen at bedside. Ambulating and voiding without difficulty. Denies headache, dizziness, CP, or SOB. Lochia decreasing. with support. Objective Data Objective Data Vital Signs: Vital Signs Temp Pulse Resp BP Pulse Ox O2 Del Method 98.0 F 82 16 113/78 98 Room Air 03/02/23 04:15 03/02/23 04:15 03/02/23 04:15 03/02/23 04:15 03/01/23 20:40 03/02/23 04:15 Oxygen Delivery Method Room Air Weight: 163 lb Body Mass Index (BMI) 27.9 Intake & Output: Intake and Output for Last 24 Hours 02/28/23 03/01/23 03/02/23 23:59 23:59 23:59 Intake Total 2564.17 / 2564.17 Output Total 700 / 700 400 / 400 Balance 1864.17 / 1864.17 -400 / -400 Lab / Micro Data 02/28/23 19:25 ROS Eyes Eyes: Denies blurry vision, change in vision or spots in vision ENT HEENT: Denies dizziness or headache(s) Cardiovascular Cardiovascular: Denies abdominal pain, chest pain or dyspnea Respiratory/Chest Respiratory/Chest: Denies cough, dyspnea, shortness of breath at rest or shortness of breath with exertion Gastrointestinal Gastrointestinal: Denies abdominal pain, diarrhea or vomiting Genitourinary Genitourinary: Denies change in urinary stream, difficulty urinating or dysuria Musculoskeletal Musculoskeletal: Reports none Integumentary Integumentary: Denies rash Neurologic Neurologic: Denies dizziness, headache(s), memory loss or weakness Physical Exam Const alert and no apparent distress General Appearance: cooperative and comfortable Exam Limitations: no limitations HEENT normocephalic Eyes General Eye: normal appearance of both eyes Neck full ROM General: normal visual inspection Chest Chest: symmetrical chest wall rise Resp normal respiratory effort and normal air movement Effort and Inspection: symmetric chest movement Auscultation: clear to auscultation bilaterally Cardio regular rate and regular rhythm GI normal to inspection, nondistended, normoactive bowel sounds Back/Spine normal ROM Extremity full ROM and no calf tenderness General Extremity: normal exam except as noted Skin no rashes or lesions noted Neuro CN's II-XII intact bilaterally Psych mental status grossly normal Assessment & Plan (1) Laceration, obstetrical, second degree: (2) Care and examination of lactating mother: (3) (spontaneous vaginal delivery): PLAN: Plan PPD 1 Routine care Breast feeding support 03/02/23 0706 <Electronically signed by Machelle Weems CNM> Cosigner Signature (if applicable): CC: ~ Signed [facility] Work Phone: 1(749) 442-566108-11-2023 History of Present illness Narrative* Rama Herrera RN - 03/02/2023 8:07 AM EDT Patient delivered via at [facility] on 03/01/23 per Machelle Weems CNM. See OB Outcome note. NICOLE Crouch documented in this encounterTrinity Health System08-10-2023 Procedure [facility] Progress note Author Machelle Weems [facility] March 01, 2023 8:10am Note Date/Time March 01, 2023 8: 10am [facility] Medical Records Department [address] [place] [address] Progress Note - OBGYN 03/01/2307 MR#: [id number] Acct: [id number] Name: MELANY MACE Rep #:[id number] : 1995 28 From: Machelle Weems CNM PCP: Dr. Yousif Hagan MD Status:A DM IN Location: [id number] Subjective Subjective Patient seen at bedside. Vásquez bulb out. Denies any pain. Starting to feel contractions. Objective Data Objective Data Vital Signs: Vital Signs Temp Pulse BP Pulse Ox 97.0 F L 81 117/74 99 03/01/23 07:13 03/01/23 07:14 03/01/23 07:14 03/01/23 07:13 Weight: 163 lb Body Mass Index (BMI) 27.9 Lab / Micro Data 02/28/23 19:25 Labs: Laboratory Results - last 24 hr 02/28/23 19:25: WBC 12.8 H, RBC 4.00 L, Hgb 12.8, Hct 38.5, MCV 96.3, MCH 32.0, MCHC 33.2, RDW Std Deviation 46.7 H, RDW Coeff of Js 13.2, Plt Count 242, MPV 9.7, Immature Gran % (Auto) 0.500, Neut % (Auto) 70.0, Lymph % (Auto) 22.9, Scott% (Auto) 4.3, Eos % (Auto) 2.1, Baso % (Auto) 0.2, Absolute Neuts (auto) 8.9 H, Absolute Lymphs (auto) 2.92, Nucleated RBC % 0, Syphilis Total Ab Non-reactive, Blood Type A POSITIVE, Antibody Screen NEGATIVE ROS Eyes Eyes: Denies blurry vision, change in vision or spots in vision ENT HEENT: Denies dizziness or headache(s) Cardiovascular Cardiovascular: Denies abdominal pain, chest pain or dyspnea Respiratory/Chest Respiratory/Chest: Denies cough, dyspnea, shortness of breath at rest or shortness of breath with exertion Gastrointestinal Gastrointestinal: Denies abdominal pain, diarrhea or vomiting Genitourinary Genitourinary: Denies change in urinary stream, difficulty urinating or dysuria Musculoskeletal Musculoskeletal: Reports none Integumentary Integumentary: Denies rash Neurologic Neurologic: Denies dizziness, headache(s), memory loss or weakness Assessment & Plan (1) 39 weeks gestation of : (2) Encounter for elective induction of labor: PLAN: Plan PCN IV - First dose running at this time Pitocin IV- starting at 2 mu/min- increase per policy Cat. 1 tracing, NST reactive Pain medications/ epidural when indicated Anticipate 03/01/23 0810 <Electronically signed by Machelle Weems CNM> Cosigner Signature (if applicable): CC: ~ Signed [facility] Work Phone: 1(697) 755-722708-10-2023 History and physical note Author Anjelica Pichardo [facility] March 01, 2023 6:46am Note Date/Time March 01, 2023 6: 46am [facility] Medical Records Department [facility] [place] [address] H&P Exam - PAEDIATRIC THORACIC PHYSICIAN 03/01/23 0642 MR#: [id number] Acct: [id number] Name: MELANY MACE Rep #:[id number] : 1995 28 From: Anjelica Pichardo MD PCP: Dr. Yousif Hagan MD Status:A DM IN Location: [place] [id number] HPI - General General Date of Admission: 02/28/23 Date of Service: 03/01/23 Chief Complaint: induction of labor HPI Narrative MELANY MACE, is a 28 F 1 para 0 who presented at 39-5/7 weeks on 02/28/2023 after evaluation office where she complained of decreased movement. She desired elective induction of labor. She denied any vaginal bleeding or leaking of fluid or regular contractions Maternal Data Information Final BELTRAN: 03/02/23 Gestational age: 39 6/7 [facility] Medical History (Updated 03/01/23 @ 06:[address] Anjelica Pichardo MD) Back pain Chronic neck pain Menstrual irregularity Other vitreous opacities, bilateral Palpitations Persistent headaches Preventative health care Seasonal allergies Shortness of breath Urinary frequency Home Medications mv-mn no.97-folic 180 mcg-dha 25 mg-herb no.293 25 mg chewable tablet (Alive Daily Support ) 1 tab PO DAILY pregnan 04/19/22 [History Last Taken 02/27/23] aspirin 81 mg chewable tablet (Susie Chewable Low Dose Aspirin) 162 mg PO DAILY 12/13/22 [History Last Taken 02/27/23] loratadine 10 mg tablet (Claritin) 10 mg PO DAILY allergies 12/13/22 [History Last Taken 02/28/23] Allergy/AdvReac Type Severity Reaction Status Date / Time mold Allergy unknown Verified 02/28/23 19:30 ragweed pollen Allergy unknown Verified 02/28/23 19:30 Family History Grandmother Cancer lung CVA (cerebral vascular accident) Grandfather Cancer pancreatic Father Heart disease Hypertension Hyperlipidemia Grandfather Heart disease CVA (cerebral vascular accident) Surgical History H/O wisdom tooth extraction Social History Smoking Status: Never smoker alcohol intake: never substance use type: does not use caffeine: Yes (Occasionally) Type: coffee what type of physical activity do you participate in: walking frequency: 3-4 times per week History Elective abortions Hx Para 0 Spontaneous abortions Hx # Term Pregnancies Ectopic pregnancies Hx # Pregnancies Multiple births # of living children ROS Constitutional Constitutional: Denies fatigue, fever(s) or malaise Eyes Eyes: Denies change in vision ENT HEENT: Denies dizziness or headache(s) Cardiovascular Cardiovascular: Denies chest pain, dyspnea or lightheadedness Respiratory/Chest Respiratory/Chest: Denies cough or dyspnea Gastrointestinal Gastrointestinal: Denies change in bowel habits Genitourinary Genitourinary: Denies burning urination or genital lesions Integumentary Integumentary: Denies rash Neurologic Neurologic: Denies confusion, dizziness, headache(s), numbness or weakness Vital Signs Vital Signs Vital Signs: 02/28/23 19:24 02/28/23 19:24 02/28/23 19:50 Temperature Temperature Source Pulse Rate 103 H 106 H Blood Pressure 124/76 H BP Systolic 124 BP Diastolic 76 Pulse Ox 02/28/23 19:50 02/28/23 19:24 02/28/23 19:50 Temperature Temperature Source Temporal Pulse Rate 99 Blood Pressure BP Systolic BP Diastolic Pulse Ox 99 02/28/23 19:24 03/01/23 00:06 03/01/23 00:06 Temperature 97.6 F L Temperature Source Pulse Rate 81 Blood Pressure 112/61 BP Systolic 112 BP Diastolic 61 Pulse Ox 03/01/23 00:06 03/01/23 00:06 03/01/23 04:11 Temperature Temperature Source Pulse Rate 86 Blood Pressure 117/69 BP Systolic 117 BP Diastolic 69 Pulse Ox 98 03/01/23 04:11 03/01/23 04:11 03/01/23 00:06 Temperature 97.0 F L Temperature Source Pulse Rate 79 Blood Pressure BP Systolic BP Diastolic Pulse Ox 99 Weight Weight: 73.936 kg Body Mass Index (BMI) 27.9 Physical Exam Const alert and no apparent distress General Appearance: cooperative HEENT normocephalic Resp normal respiratory effort Cardio regular rate GI soft to palpation GI Narrative: gravid, nontender, appropriate for gestational age Extremity no calf tenderness General Extremity: edema Skin no wounds Rashes: No rashes noted Psych activity/motor behavior normal Labs Labs Labs: Blood Type A POSITIVE Antibody Screen NEGATIVE Hct 38.5 % (37-47) Hgb 12.8 g/dL (12.0-15.0) Obstetrics US Syphilis Total Ab Non-reactive Rubella IgG Antibody Reactive (Nonreactive) Hep Bs Antigen Non-Reactive (Nonreactive) Chlamydia DNA (BARRY) Negative (Negative) Neisseria gonorrhoeae DNA (BARRY) Negative (Negative) HIV 1&2 Antibody Non-Reactive (Nonreactive) Glucose 1 Hr 50 gm 83 mg/dL (70-140) Miscellaneous Test Assessment & Plan (1) 39 weeks gestation of : PLAN: 28-year-old 1 para 0 at 39-5/7 weeks upon admission, currently at 39-6/7 weeks for elective induction of labor. Risk benefits and alternatives toinduction of labor were discussed with the patient and consent was signed. She received Cytotec overnight. She is currently 1 cm 60% effaced -2 station. A Vásquez was placed over the stylette in the usual sterile fashion and balloon inflated to 30 cc. Placement over internal cervical os was confirmed. Patient and fetus tolerated the procedure well. Will start Pitocin after 4 hours from last Cytotec. Estimated weight is less than 4000 g clinically and pelvis clinically adequate to expect vaginal delivery. May have routine pain control measures. Group B strep status is positive, initiate group B strep prophylaxis when Vásquez out or rupture of membranes. 03/01/23 0646 <Electronically signed by Anjelica Pichardo MD> Cosigner Signature (if applicable): CC: Dr. Yousif Hagan MD; Dr. Anjelica Pichardo MD~ Signed [facility] Work Phone: 1(371) 963-784608-09-2023 Miscellaneous Notes* Quick Notes - Machelle Weems APRN.CNM - 02/28/2023 3:07 PM EDT CP- CENTERING Melany Elana Mace is a 28 year old female who [...] of induction RTO- 2 weeks post Machelle Weems APRN.CNM documented in this encounterTrinity Health System08-09-2023 Instructions* Patient Instructions* Marlen Rose MA - 02/28/2023 1:17 PM EDT SEQUENTIAL SCREENINGS The [facility] offers sequential screenings for women who are interested in screenings for chromosomal abnormalities and certain defects during a . The sequential screen combinesultrasound and blood tests to determine the risk [...] this testing. It will require an appointment withour bioinformatics technician. This is not an ultrasound performed [...] the above symptoms, contact our office at [phone] and ask to speak with anurse. After hours, you can call doctors registry at [phone] OR call [facility] at [phone] ask to have the doctor senior python developer paged. If you consider this an emergency, dial 9--1 or go to your nearest emergency department. NEED HELP? Are you dealing with a violent or abusive relationship? Are you a victim of rape or sexual assult? Call [facility] ([place]) 24 hour Crisis Hotline: 421.236.6086 or 881-930-0028. MANUAL Your Guide to a Healthy manual is now on-line. Visit [email or web address] to download your free copy documented in this encounterTrinity Health System07-31-2023 Miscellaneous Notes* Quick Notes - Machelle Weems APRN.CNM - 02/19/2023 11:26 AM EDT Melany Mace is a 28 year old female who presents at 38w3d Estimated Date of Delivery: 03/02/23for a routine visit. Good movement. C/O regular contractions most of the day yesterday. Did not go in because they are not painful. Some contractions feel stronger than others but [...] desire membrane stripping at 40 weeks. Machelle Weems APRN.CNM documented in this encounterTrinity Health System07-31-2023 Instructions* Patient Instructions* Machelle Weems APRN.CNM - 02/19/2023 11:11 AM EDT Images [...] make an easy pie crust in the fast food supervisor. Add soaked dates to homemade nut butter for a sweet treat. Add dates to alexandr homemade salad dressing. Add dates during easily with these yummy (paleo friendly) bars made from dates. What Is Red Raspberry Busby Tea? Red raspberry leaf tea comes from the leaves of the red raspberry plant. This herbal tea has been used for centuries to support respiratory, digestive and uterine health, particularly during and childbearing years. While usually known as a female herb, red raspberry leaf tea can also helpsupport the prostate and various stomach ailments in [...] , and too. How Much Red Raspberry Busby Tea to Drink? With your doctor or cloth desizing range tender s approval, start with 1 cup of red raspberry leaf tea per day startingin the second trimester. Watch for any uterine cramping or other reactions. If you don t experienceany, you can talk to your healthcare provider about increasing to 2 cups per day. Again, watch for any uterine cramping. If you notice any, cut back on your dosage for two weeks and try again. Keep in mind, some moms have irritable uteruses and can only drink red raspberry leaf tea once theyreach their due date because of uterine cramping. Is Red Raspberry Busby Tea the Same as Raspberry Busby Tea? How About Plain Old Raspberry Tea? Sometimes. You really need to look at the ingredients to be sure. Note that there is no difference between red raspberry leaf and raspberry leaf. Trovix or 360pi Raspberry Busby Tea are two good brands. The red raspberry leaf teas that we recommend are 100% red raspberry leaf. Other teas labeled as raspberry are often a blend of rosehips, hibiscus, raspberry leaves, and raspberry flavor. So they maynot be as effective. The teas to avoid are raspberry-flavored herbal teas, which may have ingredients like hibiscus, devorah hips, apples, elderberries, natural and artificial raspberry flavors. Teas like this don t containraspberry leaf at all and thus won t offer any of the potential benefits of RRLT outlined in this article. The [employer] www.[employer] I named this 'circuit' after my friend [...] and use this time to get totally relaxed.This position allows the baby to scoot out [...] pillows. Sink into the bed and relax somemore. If you fall asleep, that's totally okay [...] in your head. Step Three: Moving and Leandro Lungotis, walk stairs facing sideways, 2 at a time, (have a whipper beater downstairs of you!), take a walk outside [...] direction that feels better to you. The choen with the lunge is that the toes of the higher leg and mom's belly button should be at right angles. Do not lunge over your knee, that closes the pelvis. Fartun Sanches: Circuit Creator - www.Greytip Softwarecollective.Indix Dedra Doll, CD, BDT (VITA), LCCE, FACCE: Supporting Content - www.LogicLadderchemoPlayMotionclementinaTuring Inc. Fanny Matos: Photography - www.ronnwRemedy Systems Khushboo Browne CD/CDT (PONCHO): Print and Surgical Assistant - www.[employer]uv[employer].Chiral Quest [employer] Masterminds The Surreal Ink Circuit www.[employer] SEQUENTIAL SCREENINGS The [facility] offers sequential screenings for women who are interested in screenings for chromosomal abnormalities and certain defects during a . The sequential screen combinesultrasound and blood tests to determine the risk [...] this testing. It will require an appointment withour bioinformatics technician. This is not an ultrasound performed [...] the above symptoms, contact our office at [phone] and ask to speak with anurse. After hours, you can call doctors registry at [phone] OR call [facility] at [phone] ask to have the doctor senior python developer paged. If you consider this an emergency, dial 2-2-2 or go to your nearest emergency department. NEED HELP? Are you dealing with a violent or abusive relationship? Are you a victim of rape or sexual assult? Call [facility] ([facility] 24 hour Crisis Hotline: 509.737.4816 or 323-866-9000. MANUAL Your Guide to a Healthy manual is now on-line. Visit [email or web address] to download your free copy documented in this encounterTrinity Health System07-26-2023 Instructions* Patient Instructions* Romaine Worthy Cma - 02/14/2023 2:10 PM EDT SEQUENTIAL SCREENINGS The [facility] offers sequential screenings for women who are interested in screenings for chromosomal abnormalities and certain defects during a . The sequential screen combinesultrasound and blood tests to determine the risk [...] this testing. It will require an appointment withour bioinformatics technician. This is not an ultrasound performed [...] the above symptoms, contact our office at [phone] and ask to speak with anurse. After hours, you can call doctors registry at [phone] OR call [facility] at [phone] ask to have the doctor senior python developer paged. If you consider this an emergency, dial 9-4-6 or go to your nearest emergency department. NEED HELP? Are you dealing with a violent or abusive relationship? Are you a victim of rape or sexual assult? Call [facility] ([place]) 24 hour Crisis Hotline: 470.314.8850 or 882-570-2583. MANUAL Your Guide to a Healthy manual is now on-line. Visit [email or web address] to download your free copy documented in this encounterTrinity Health System07-26-2023 Miscellaneous Notes* Quick Notes - Machelle Weems APRN.CNM - 02/14/2023 1:12 PM EDT CP Centertai Melany Mace is a 28 year old female who [...] 1 week or sooner if needed. Machelle Weems APRN.CNM documented in this encounterTrinity Health System06-28-2023 Miscellaneous Notes* Quick Notes - Machelle Weems APRN.CNM - 01/17/2023 1:14 PM EDT CP-Centering S: Melany Mace is a 27 year old female who presents at 03/02/2023, by Ultrasound Gestational Age: 39w6d for a routine visit. Denies headache, visual changes, chest pain, shortness of breath, vaginal bleeding, leakage of fluid, or dysuria. Feeling well, no complaints. Viraj benitez contractions x3 days intermittently O: See flow sheet Gen: No apparent distress Abd: Gravid, nontender ASSESSMENT/PLAN: 1. 33 weeks gestation of P: 1) PTL precautions reviewed and when to call 2) RTO 2 weeks 3) Size less than dates- Growth US ordered Discussed increasing water intake and adding electrolyte drinks Machelle Weems APRN.CNM documented in this encounterTrinity Health System06-28-2023 Instructions* Patient Instructions* Romaine Worthy Clinical Studies Specialist - 01/17/2023 12:05 PM EDT SEQUENTIAL SCREENINGS The [facility] offers sequential screenings for women who are interested in screenings for chromosomal abnormalities and certain defects during a . The sequential screen combinesultrasound and blood tests to determine the risk [...] this testing. It will require an appointment withour bioinformatics technician. This is not an ultrasound performed [...] the above symptoms, contact our office at [phone] and ask to speak with anurse. After hours, you can call doctors registry at [phone] OR call [facility] at [phone] ask to have the doctor senior python developer paged. If you consider this an emergency, dial 0-1-0 or go to your nearest emergency department. NEED HELP? Are you dealing with a violent or abusive relationship? Are you a victim of rape or sexual assult? Call [facility] ([place]) 24 hour Crisis Hotline: 190.613.4025 or 786-832-4027. MANUAL Your Guide to a Healthy manual is now on-line. Visit [email or web address] to download your free copy documented in this encounterTrinity Health System06-14-2023 History of Present illness Narrative* Krissy Galvan APRN.CNM - 01/03/2023 1:26 PM EDT [facility] S: Melany Mace is a 27 year old female who [...] 4) Fiber supplement and magnesium for constipation. Krissy Galvan APRN.CNM documented in this encounterTrinity Health System06-14-2023 Instructions* Patient Instructions* Krissy Galvan APRN.CNM - 01/03/2023 12:47 PM EDT [...] the above symptoms, contact our office at [phone] and ask to speak with anurse. After hours, you can call doctors registry at [phone] OR call [facility] at [phone] ask to have the doctor senior python developer paged. If you consider this an emergency, dial 3--2 or go to your nearest emergency department. NEED HELP? Are you dealing with a violent or abusive relationship? Are you a victim of rape or sexual assult? Call [facility] ([place]) 24 hour Crisis Hotline: 183.926.9615 or 560-925-7464. MANUAL Your Guide to a Healthy manual is now on-line. Visit [email or web address] to download your free copy documented in this encounterTrinity Health System06-04-2023 Miscellaneous Notes* Quick Notes - Krissy Galvan APRN.CNM - 12/24/2022 9:47 PM EDT [facility]-S: Melany Mace is a 27 year old female who [...] weeks 3) Seen cardiology, will request records Krissy Galvan APRN.CNM documented in this encounterTrinity Health System05-31-2023 History of Present illness Narrative* Krissy Galvan APRN.CNM - 12/20/2022 1:04 PM EDT documented in this encounterTrinity Health System05-31-2023 Instructions* Patient Instructions* Romaine Worthy Cma - 12/20/2022 9:54 AM EDT SEQUENTIAL SCREENINGS The [facility] offers sequential screenings for women who are interested in screenings for chromosomal abnormalities and certain defects during a . The sequential screen combinesultrasound and blood tests to determine the risk [...] this testing. It will require an appointment withour bioinformatics technician. This is not an ultrasound performed [...] the above symptoms, contact our office at [phone] and ask to speak with anurse. After hours, you can call doctors registry at [phone] OR call [facility] at [phone] ask to have the doctor senior python developer paged. If you consider this an emergency, dial or go to your nearest emergency department. NEED HELP? Are you dealing with a violent or abusive relationship? Are you a victim of rape or sexual assult? Call [facility] ([place]) 24 hour Crisis Hotline: 223.352.2258 or 671-884-8843. MANUAL Your Guide to a Healthy manual is now on-line. Visit [email or web address] to download your free copy documented in this encounterTrinity Health System05-15-2023 History of Present illness Narrative* Romaine Worthy Cma - 12/04/2022 2:09 PM EDT Patient identified by name and date of . Melany Mace presents today for a vaccination of Tdap. Patient denies an allergy to latex: yes Patient denies a severe (life-threatening) allergy to a previous dose of Tdap, DTP, DTaP, DT or Td vaccine. Yes Patient denies history of epilepsy or neurological problems: Yes Patient is afebrile and denies being moderately or severely ill: Yes Patient denies history of Guillain-[place] Syndrome (a severe paralytic illness): Yes Tdap Adacel injection was given without incident. See immunizations for details of immunizations administered today. VIS sheet provided: Yes Provider Krissy Galvan CNM was present in office at time of injection. Romaine Worthy Cma documented in this encounterTrinity Health System05-15-2023 Miscellaneous Notes* Quick Notes - Krissy Galvan APRN.CNM - 12/04/2022 2:02 PM EDT CHALO-S: Melany Mace is a 27 year old female who presents at 27w3d with BELTRAN: 03/02/2023, by Ultrasound for a routine visit. Centering patient but here today for care between groups. Good FM. Deniesheadache, visual changes, chest pain, shortness of breath, [...] hour GCT, CBC, and RPR completed at [facility] and normal - TDAP today - LARC form reviewed and signed at last visit. Patient declines - Depression screen negative on 11/22/22 - Opioid screen negative - plan form discussed and given to patient. - PTL precautions and kick counts reviewed - RTO- 2 weeks or sooner if needed Krissy Galvan APRN.CNM documented in this encounterTrinity Health System05-15-2023 Instructions* Patient Instructions* Krissy Galvan APRN.CNM - 12/04/2022 1:25 PM EDT [...] the above symptoms, contact our office at [phone] and ask to speak with anurse. After hours, you can call doctors registry at [phone] OR call [facility] at [phone] ask to have the doctor senior python developer paged. If you consider this an emergency, dial 9-1-1 or go to your nearest emergency department. NEED HELP? Are you dealing with a violent or abusive relationship? Are you a victim of rape or sexual assult? Call [facility] ([place]) 24 hour Crisis Hotline: 766.733.9938 or 582-651-0545. MANUAL Your Guide to a Healthy manual is now on-line. Visit [email or web address] to download your free copy documented in this encounterTrinity Health System05-03-2023 Instructions* Patient Instructions* Romaine Worthy Clinical Studies Specialist - 11/22/2022 1:18 PM EDT SEQUENTIAL SCREENINGS The [facility] offers sequential screenings for women who are interested in screenings for chromosomal abnormalities and certain defects during a . The sequential screen combinesultrasound and blood tests to determine the risk [...] this testing. It will require an appointment withour bioinformatics technician. This is not an ultrasound performed [...] the above symptoms, contact our office at [phone] and ask to speak with anurse. After hours, you can call doctors registry at [phone] OR call [facility] at [phone] ask to have the doctor senior python developer paged. If you consider this an emergency, dial 4 or go to your nearest emergency department. NEED HELP? Are you dealing with a violent or abusive relationship? Are you a victim of rape or sexual assult? Call [facility] ([facility] 24 hour Crisis Hotline: 676.290.6170 or 010-130-8298. MANUAL Your Guide to a Healthy manual is now on-line. Visit [email or web address] to download your free copy documented in this encounterTrinity Health System05-03-2023 History of Present illness Narrative* Krissy Galvan APRN.CNM - 11/22/2022 1:09 PM EDT CHALO-S: Melany Mace is a 27 year old female who [...] PCP or cardiology. 7) Tdap next visit. Krissy Galvan APRN.CNM documented in this encounterTrinity Health System04-05-2023 Instructions* Patient Instructions* Romaine Worthy Cma - 10/25/2022 2:08 PM EDT SEQUENTIAL SCREENINGS The [facility] offers sequential screenings for women who are interested in screenings for chromosomal abnormalities and certain defects during a . The sequential screen combinesultrasound and blood tests to determine the risk [...] this testing. It will require an appointment withour bioinformatics technician. This is not an ultrasound performed [...] the above symptoms, contact our office at [phone] and ask to speak with anurse. After hours, you can call doctors registry at [phone] OR call [facility] at [phone] ask to have the doctor senior python developer paged. If you consider this an emergency, dial 2-7-0 or go to your nearest emergency department. NEED HELP? Are you dealing with a violent or abusive relationship? Are you a victim of rape or sexual assult? Call [facility] ([place]) 24 hour Crisis Hotline: 698.520.1694 or 400-523-4661. MANUAL Your Guide to a Healthy manual is now on-line. Visit [email or web address] to download your free copy documented in this encounterTrinity Health System04-05-2023 Miscellaneous Notes* Quick Notes - Krissy Galvan APRN.MANSI - 10/25/2022 1:00 PM EDT CHALO-S: Centering Group visit Melany Mace is a 27 year old female who [...] in 4 weeks 3) Anatomy completed at [facility] 4) Reviewed CBE and education 5) 1hr GCT, CBC, and RPR 26-28 weeks Krissy Galvan APRN.CNNacho documented in this encounterTrinity Health System03-23-2023 Miscellaneous Notes* Addendum Note - Jenae Rose Ma - 10/12/2022 10:35 AM EDTAddended by: JENAE ROSE MA on: 10/12/2022 10:35 AM Modules accepted: Orders * Quick Notes - Anjelica Pichardo MD - 10/12/2022 10:20 AM EDT RR_ Had some spotting this am, only when wiped. No cramping or trauma. PE- yellow/clear mucous discharge w/ minimal pink tinge, cervix mildly friable, large ectropion Feel spotting from this. No dysuria or UTI symptoms, UA neg except for trace blood. Pelvic rest/light activit for2-3 days, call if any changes in symptoms Anjelica Pichardo MD documented in this encounterTrinity Health System03-23-2023 Instructions* Patient Instructions* Jenae Rose Ma - 10/12/2022 10:05 AM EDT SEQUENTIAL SCREENINGS The [facility] offers sequential screenings for women who are interested in screenings for chromosomal abnormalities and certain defects during a . The sequential screen combinesultrasound and blood tests to determine the risk [...] this testing. It will require an appointment withour bioinformatics technician. This is not an ultrasound performed [...] the above symptoms, contact our office at [phone] and ask to speak with anurse. After hours, you can call doctors registry at [phone] OR call [facility] at [phone] ask to have the doctor senior python developer paged. If you consider this an emergency, dial 9-1-2 or go to your nearest emergency department. NEED HELP? Are you dealing with a violent or abusive relationship? Are you a victim of rape or sexual assult? Call [facility] ([place]) 24 hour Crisis Hotline: 820.302.3683 or 708-427-7988. MANUAL Your Guide to a Healthy manual is now on-line. Visit [email or web address] to download your free copy documented in this encounterTrinity Health System03-21-2023 History of Present illness Narrative* Rama Herrera RN - 10/10/2022 8:13 AM EDT Please review Anatomy US done at [facility] Scan on 10/09/2022 7:45 PM by External Provider: Ultrasound documented in this encounterTrinity Health System03-20-2023 Miscellaneous Notes* Telephone Encounter - Kay Avery LPN - 10/09/2022 3:54 PM EDT FMLA completed, faxed to employer, scanned into EMR and filed in [employer] suite. Kay Avery LPN * Telephone Encounter - Kay Avery LPN - 10/09/2022 3:29 PM EDT FMLA completed and placed on providers desk for signature. Kay Avery LPN * Telephone Encounter - Kay Avery LPN - 10/09/2022 9:52 AM EDT Mychart message to pt asking for beginning date of her leave and her return to work date. Kay Avery LPN documented in this encounterTrinity Health System03-15-2023 Miscellaneous Notes* Quick Notes - Anjelica Pichardo MD - 10/04/2022 3:10 PM EDT RR- No VB/LOF. Some flutters. Anatomy scan ordered at [facility]. F/u in 4 weeks or prn. Anjelica Pichardo MD documented in this encounterTrinity Health System03-08-2023 Miscellaneous Notes* Quick Notes - Krissy Galvan APRN.CNM - 09/27/2022 5:21 PM EST CP-S: Melany Mace is a 27 year old female who presents at 17w5d with BELTRAN: 03/02/2023, by Ultrasound routine for a routine visit. Denies headache, visual changes, chest pain, shortness of breath,vaginal bleeding, leakage of fluid, or dysuria. Feeling [...] 4 weeks 3) Anatomy US scheduled. Machelle Weems APRN.CNM documented in this encounterTrinity Health System03-08-2023 Instructions* Patient Instructions* Marlen Rose MA - 09/27/2022 3:25 PM EST SEQUENTIAL SCREENINGS The [facility] offers sequential screenings for women who are interested in screenings for chromosomal abnormalities and certain defects during a . The sequential screen combinesultrasound and blood tests to determine the risk [...] this testing. It will require an appointment withour bioinformatics technician. This is not an ultrasound performed [...] the above symptoms, contact our office at [phone] and ask to speak with anurse. After hours, you can call doctors registry at [phone] OR call [facility] at [phone] ask to have the doctor senior python developer paged. If you consider this an emergency, dial 9-1-5 or go to your nearest emergency department. NEED HELP? Are you dealing with a violent or abusive relationship? Are you a victim of rape or sexual assult? Call [facility] ([facility] 24 hour Crisis Hotline: 607.665.9424 or 065-829-8003. MANUAL Your Guide to a Healthy manual is now on-line. Visit [email or web address] to download your free copy documented in this encounterTrinity Health System03-08-2023 History of Present illness Narrative* Marlen Rose MA - 09/27/2022 3:24 PM EST documented in this encounterTrinity Health System02-15-2023 Miscellaneous Notes* Quick Notes - Jacki Knapp MD - 09/06/2022 4:29 PM EST DM- Pt doing well today. Denies Vaginal Bleeding, Leaking fluid, or cramping. Still with some Nausea and sickness in morning- otherwise feeling better. ANatomy us at [facility] order placed. Labs reviewed. ASA to start. Jacki Knapp MD documented in this encounterTrinity Health System02-15-2023 Instructions* Patient Instructions* Milly Vega Ma - 09/06/2022 4:17 PM EST SEQUENTIAL SCREENINGS The [facility] offers sequential screenings for women who are interested in screenings for chromosomal abnormalities and certain defects during a . The sequential screen combinesultrasound and blood tests to determine the risk [...] this testing. It will require an appointment withour bioinformatics technician. This is not an ultrasound performed [...] the above symptoms, contact our office at [phone] and ask to speak with anurse. After hours, you can call [employer] registry at [phone] OR call [facility] at [phone] ask to have the doctor senior python developer paged. If you consider this an emergency, dial 9-1-1 or go to your nearest emergency department. NEED HELP? Are you dealing with a violent or abusive relationship? Are you a victim of rape or sexual assult? Call [facility] ([place]) 24 hour Crisis Hotline: 166.801.6227 or 251-985-5383. MANUAL Your Guide to a Healthy manual is now on-line. Visit [email or web address] to download your free copy documented in this encounterTrinity Health System02-09-2023 Miscellaneous Notes* Telephone Encounter - Nai Mosley RN - 08/31/2022 10:05 AM EST Refill request received via [employer]. Patient 13w6d, next appointment on 09/06/22. Nai Mosley RN documented in this encounterTrinity Health System01-23-2023 Miscellaneous Notes* Telephone Encounter - Sarah Thrasher RN - 08/14/2022 10:04 AM EST Previous order was sent to [facility] 07/31/2022- 30 tablets no refills. Patient requesting [facility] pharmacy. Pt 11w3d documented in this encounterTrinity Health System01-16-2023 History of Present illness Narrative* Jacki Knapp MD - 08/07/2022 11:30 AM EST OB point of care ultrasound was performed. See imaging tab for details. Jacki Dumont MD documented in this encounterTrinity Health System01-16-2023 Miscellaneous Notes* Quick Notes - Jacki Knapp MD - 08/07/2022 11:16 AM EST DM- new OB. Wants NT but likely no other screening. Labs and Ultrasounds at [facility]. Phenergan for Nausea. RTO 4 wks. Start ASA next visit. Jacki Dumont MD documented in this encounterTrinity Health System01-16-2023 History of Present illness Narrative* Jacki Knapp MD - 08/07/2022 10:07 AM EST Images from the original note were not included. 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 cyclobenzaprine [...] Screening: Completed, no positive findings documented. SBIRT Melany Mace was given the 4P's screening tool. Melany answered as follows: OB Opioid Screening - [...] behavior. Plan to rescreen early third trimester. Jacki Dumont MD ASSESSMENT: 27 year old at [...] up in 4 weeks or sooner prn. Jacki Dumont MD documented in this encounterTrinity Health System01-16-2023 Instructions* Patient Instructions* Milly Vega Ma - 08/07/2022 10:07 AM EST Please select the following link to access the [facility] Your Guide to a Healthy . [email or web address] documented in this encounterTrinity Health System01-09-2023 Miscellaneous Notes* Telephone Encounter - Jacki Knapp MD - 07/31/2022 12:24 PM EST ordered * Telephone Encounter - Rama Herrera RN - 07/31/2022 11:23 AM EST Has NOB on 08/07 documented in this encounterTrinity Health System12-14-2022 Miscellaneous Notes* Quick Notes - Sarah Thrasher RN - 07/05/2022 8:18 AM EST DISTANCE HEALTH VISIT This Team Access Model visit is a phone encounter. It required patient-provider interaction for themedical decision making as documented below. Patient and have been attempting forthe last 11 months. Used ovulation predictor kit. Patient has a first cousin with [place] syndrome. Patient considering nuchal ultrasound and genetic carrier screening testing.Contact information for integrated genetics and Rhett rep given to patient to check on insurance coverage. Sarah Thrasher RN documented in this encounterTrinity Health System12-05-2022 Miscellaneous Notes* Telephone Encounter - Marifer Ray RN - 06/26/2022 9:44 AM EST Spoke to patient. She did not get [...] arise prior to visit. Marifer Ray RN * Telephone Encounter - Kay Avery LPN - 06/23/2022 1:37 PM EST . * Telephone Encounter - Marifer Ray RN - 06/22/2022 12:32 PM EST Hcg quant received from [facility]. Await 2nd quant on 06/24/22. 06/22/22 67 Marifer Ray RN documented in this encounterTrinity Health System12-01-2022 Miscellaneous Notes* Telephone Encounter - Kay Avery LPN - 06/22/2022 8:58 AM EST Pt notified. Kay Avery LPN * Telephone Encounter - Jacki Knapp MD - 06/22/2022 8:55 AM EST Signed. * Telephone Encounter - Kay Avery LPN - 06/22/2022 8:32 AM EST Pt calling and stated that her LMP 05/17/22, she got positive test yesterday and today. Pt wanting quants done at [facility] prior to scheduling any appointments. Please see pended orders and sign. Form can then be faxed to [facility]. Kay Avery LPN documented in this encounterTrinity Health System10-10-2013 History of Past illness Narrative* Problem Noted Date Resolved Date Mild concussion 05/01/2013 10/24/2014 Back strain 02/10/2013 10/24/2014 documented as of this encounter (statuses as of 06/22/2022) [facility] Narrative* Problem Noted Date Resolved Date Mild concussion 05/01/2013 10/24/2014 Back strain 02/10/2013 10/24/2014 documented as of this encounter (statuses as of 06/26/2022) [facility] Narrative* Problem Noted Date Resolved Date Mild concussion 05/01/2013 10/24/2014 Back strain 02/10/2013 10/24/2014 documented as of this encounter (statuses as of 07/05/2022) [facility] Narrative* Problem Noted Date Resolved Date Mild concussion 05/01/2013 10/24/2014 Back strain 02/10/2013 10/24/2014 documented as of this encounter (statuses as of 07/05/2022) [facility] Narrative* Problem Noted Date Resolved Date Mild concussion 05/01/2013 10/24/2014 Back strain 02/10/2013 10/24/2014 documented as of this encounter (statuses as of 07/31/2022) [facility] Narrative* Problem Noted Date Resolved Date Mild concussion 05/01/2013 10/24/2014 Back strain 02/10/2013 10/24/2014 documented as of this encounter (statuses as of 08/07/2022) [facility] Narrative* Problem Noted Date Resolved Date Mild concussion 05/01/2013 10/24/2014 Back strain 02/10/2013 10/24/2014 documented as of this encounter (statuses as of 08/07/2022) [facility]ative* Problem Noted Date Resolved Date Mild concussion 05/01/2013 10/24/2014 Back strain 02/10/2013 10/24/2014 documented as of this encounter (statuses as of 08/14/2022) [facility]ative* Problem Noted Date Resolved Date Mild concussion 05/01/2013 10/24/2014 Back strain 02/10/2013 10/24/2014 documented as of this encounter (statuses as of 08/23/2022) [facility] Narrative* Problem Noted Date Resolved Date Mild concussion 05/01/2013 10/24/2014 Back strain 02/10/2013 10/24/2014 documented as of this encounter (statuses as of 08/31/2022) [facility]ative* Problem Noted Date Resolved Date Mild concussion 05/01/2013 10/24/2014 Back strain 02/10/2013 10/24/2014 documented as of this encounter (statuses as of 09/07/2022) [facility] N[facility]ative* Problem Noted Date Resolved Date Mild concussion 05/01/2013 10/24/2014 Back strain 02/10/2013 10/24/2014 documented as of this encounter (statuses as of 09/12/2022) [facility]* Problem Noted Date Resolved Date Mild concussion 05/01/2013 10/24/2014 Back strain 02/10/2013 10/24/2014 documented as of this encounter (statuses as of 09/28/2022) [facility]ative* Problem Noted Date Resolved Date Mild concussion 05/01/2013 10/24/2014 Back strain 02/10/2013 10/24/2014 documented as of this encounter (statuses as of 10/04/2022) [facility]ative* Problem Noted Date Resolved Date Mild concussion 05/01/2013 10/24/2014 Back strain 02/10/2013 10/24/2014 documented as of this encounter (statuses as of 10/10/2022) [facility]ative* Problem Noted Date Resolved Date Mild concussion 05/01/2013 10/24/2014 Back strain 02/10/2013 10/24/2014 documented as of this encounter (statuses as of 10/10/2022) [facility]* Problem Noted Date Resolved Date Mild concussion 05/01/2013 10/24/2014 Back strain 02/10/2013 10/24/2014 documented as of this encounter (statuses as of 10/12/2022) [facility]ative* Problem Noted Date Resolved Date Mild concussion 05/01/2013 10/24/2014 Back strain 02/10/2013 10/24/2014 documented as of this encounter (statuses as of 10/31/2022) [facility]* Problem Noted Date Resolved Date Mild concussion 05/01/2013 10/24/2014 Back strain 02/10/2013 10/24/2014 documented as of this encounter (statuses as of 11/23/2022) [facility]arrative* Problem Noted Date Resolved Date Mild concussion 05/01/2013 10/24/2014 Back strain 02/10/2013 10/24/2014 documented as of this encounter (statuses as of 12/05/2022) [facility]* Problem Noted Date Resolved Date Mild concussion 05/01/2013 10/24/2014 Back strain 02/10/2013 10/24/2014 documented as of this encounter (statuses as of 12/25/2022) [address] History of Past illness Narrative* Problem Noted Date Resolved Date Mild concussion 05/01/2013 10/24/2014 Back strain 02/10/2013 10/24/2014 documented as of this encounter (statuses as of 01/04/2023) [facility]* Problem Noted Date Resolved Date Mild concussion 05/01/2013 10/24/2014 Back strain 02/10/2013 10/24/2014 documented as of this encounter (statuses as of 01/18/2023) [facility]* Problem Noted Date Diagnosed Date Resolved Date Mild concussion 05/01/2013 10/24/2014 Back strain 02/10/2013 10/24/2014 documented as of this encounter (statuses as of 02/14/2023) [facility]* Problem Noted Date Diagnosed Date Resolved Date Mild concussion 05/01/2013 10/24/2014 Back strain 02/10/2013 10/24/2014 documented as of this encounter (statuses as of 02/19/2023) [facility]* Problem Noted Date Diagnosed Date Resolved Date Mild concussion 05/01/2013 10/24/2014 Back strain 02/10/2013 10/24/2014 documented as of this encounter (statuses as of 03/01/2023) [facility]ative* Problem Noted Date Diagnosed Date Resolved Date Mild concussion 05/01/2013 10/24/2014 Back strain 02/10/2013 10/24/2014 documented as of this encounter (statuses as of 03/02/2023) [facility] Narrative* Problem Noted Date Diagnosed Date Resolved Date Mild concussion 05/01/2013 10/24/2014 Back strain 02/10/2013 10/24/2014 documented as of this encounter (statuses as of 03/14/2023) [facility] N[facility]ative* Problem Noted Date Diagnosed Date Resolved Date Mild concussion 05/01/2013 10/24/2014 Back strain 02/10/2013 10/24/2014 documented as of this encounter (statuses as of 04/16/2023) [facility]ative* Problem Noted Date Diagnosed Date Resolved Date Mild concussion 05/01/2013 10/24/2014 Back strain 02/10/2013 10/24/2014 documented as of this encounter (statuses as of 05/02/2023) [facility] Narrative* Problem Noted Date Diagnosed Date Resolved Date Mild concussion 05/01/2013 10/24/2014 Back strain 02/10/2013 10/24/2014 documented as of this encounter (statuses as of 06/27/2023) [facility]ative* Problem Noted Date Diagnosed Date Resolved Date Mild concussion 05/01/2013 10/24/2014 Back strain 02/10/2013 10/24/2014 documented as of this encounter (statuses as of 08/25/2023) [facility] Narrative* Problem Noted Date Diagnosed Date Resolved Date Mild concussion 05/01/2013 10/24/2014 Back strain 02/10/2013 10/24/2014 documented as of this encounter (statuses as of 10/22/2023) [facility]Reason for [facility] Narrative* Chief Complaint yearly HRA E ORDER WANTS CHIRO REFERRAL EST CARE EORDER Back pain Back pain Reason for Visit Menstrual irregulari ty Preventative health care Chronic neck pain Segmental and somatic dysfunction of cervical region Segmental and somatic dysfunction of lumbar region Segmental and somatic dysfunction of thoracic region Chronic neck pain Persistent headaches Scoliosis Back pain Segmental and somatic dysfunction of cervical region Segmental and somatic dysfunction of lumbar region Segmental and somatic dysfunction of thoracic region Persistent headaches Scoliosis Back pain Segmental and somatic dysfunction of cervical region Segmental and somatic dysfunction of lumbar region Segmental and somatic dysfunction of thoracic region Persistent headaches Scoliosis [facility] Work Phone: Chief complaint+Reason for visit Narrative* Chief Complaint yearly HRA E ORDER WANTS [facility] REFERRAL EST CARE EORDER Back pain Back pain Back pain EORDER Back pain Back pain Reason for Visit Menstrual irregulari ty Preventative health care Chronic neck pain Segmental and somatic dysfunction of cervical region Segmental and somatic dysfunction of lumbar region Segmental and somatic dysfunction of thoracic region Chronic neck pain Persistent headaches Scoliosis Back pain Segmental and somatic dysfunction of cervical region Segmental and somatic dysfunction of lumbar region Segmental and somatic dysfunction of thoracic region Persistent headaches Scoliosis Back pain Segmental and somatic dysfunction of cervical region Segmental and somatic dysfunction of lumbar region Segmental and somatic dysfunction of thoracic region Persistent headaches Scoliosis Back pain Segmental and somatic dysfunction of cervical region Segmental and somatic dysfunction of lumbar region Segmental and somatic dysfunction of thoracic region Persistent headaches Scoliosis Back pain Segmental and somatic dysfunction of cervical region Segmental and somatic dysfunction of lumbar region Segmental and somatic dysfunction of thoracic region Persistent headaches Scoliosis Back pain Segmental and somatic dysfunction of cervical region Segmental and somatic dysfunction of lumbar region Segmental and somatic dysfunction of thoracic region Scoliosis [facility] Work Phone: Chief complaint+Reason for visit Narrative* Chief Complaint HRA E ORDER WANTS [facility] REFERRAL EST CARE EORDER Back pain Back pain Back pain EORDER Back pain Back pain Back pain Back pain Reason for Visit Chronic neck pain Segmental and somatic dysfunction of cervical region Segmental and somatic dysfunction of lumbar region Segmental and somatic dysfunction of thoracic region Chronic neck pain Persistent headaches Scoliosis Back pain Segmental and somatic dysfunction of cervical region Segmental and somatic dysfunction of lumbar region Segmental and somatic dysfunction of thoracic region Persistent headaches Scoliosis Back pain Segmental and somatic dysfunction of cervical region Segmental and somatic dysfunction of lumbar region Segmental and somatic dysfunction of thoracic region Persistent headaches Scoliosis Back pain Segmental and somatic dysfunction of cervical region Segmental and somatic dysfunction of lumbar region Segmental and somatic dysfunction of thoracic region Persistent headaches Scoliosis Back pain Segmental and somatic dysfunction of cervical region Segmental and somatic dysfunction of lumbar region Segmental and somatic dysfunction of thoracic region Persistent headaches Scoliosis Back pain Segmental and somatic dysfunction of cervical region Segmental and somatic dysfunction of lumbar region Segmental and somatic dysfunction of thoracic region Scoliosis Back pain Segmental and somatic dysfunction of cervical region Segmental and somatic dysfunction of lumbar region Segmental and somatic dysfunction of thoracic region Scoliosis Back pain Segmental and somatic dysfunction of cervical region Segmental and somatic dysfunction of lumbar region Segmental and somatic dysfunction of sacral region Segmental and somatic dysfunction of thoracic region Scoliosis [facility] Work Phone: Evaluation note* Diagnosis Onset Date Resolution Status Menstrual irregularity acute Preventative health care acu te [facility] Work Phone: Evaluation note* Diagnosis Onset Date Resolution Status Menstrual irregularity acute Preventative health care acu te Chronic neck pain chronic Segmental and somatic dysfunction of cervical region acute Segmental and somatic dysfunction of lumbar region acute Segmental and somatic dysfunction of thoracic region acute Chronic neck pain chronic Persistent headaches chronic Scoliosis chronic Back pain acute Segmental and somatic dysfunction of cervical region acute Segmental and somatic dysfunction of lumbar region acute Segmental and somatic dysfunction of thoracic region acute Persistent headaches chronic Scoliosis chronic Back pain acute Segmental and somatic dysfunction of cervical region acute Segmental and somatic dysfunction of lumbar region acute Segmental and somatic dysfunction of thoracic region acute Persistent headaches chronic Scoliosis [facility] Work Phone: Evaluation note* Diagnosis Supervision of normal first , antepartum- Primary Family history of Higuera syndrome Family history of congenital anomalies [facility] Diagnosis Onset Date Resolution Status Menstrual irregularity acute Preventative health care acu te Chronic neck pain chronic Segmental and somatic dysfunction of cervical region acute Segmental and somatic dysfunction of lumbar region acute Segmental and somatic dysfunction of thoracic region acute Chronic neck pain chronic Persistent headaches chronic Scoliosis chronic Back pain acute Segmental and somatic dysfunction of cervical region acute Segmental and somatic dysfunction of lumbar region acute Segmental and somatic dysfunction of thoracic region acute Persistent headaches chronic Scoliosis chronic Back pain acute Segmental and somatic dysfunction of cervical region acute Segmental and somatic dysfunction of lumbar region acute Segmental and somatic dysfunction of thoracic region acute Persistent headaches chronic Scoliosis chronic Back pain acute Segmental and somatic dysfunction of cervical region acute Segmental and somatic dysfunction of lumbar region acute Segmental and somatic dysfunction of thoracic region acute Persistent headaches chronic Scoliosis chronic Back pain acute Segmental and somatic dysfunction of cervical region acute Segmental and somatic dysfunction of lumbar region acute Segmental and somatic dysfunction of thoracic region acute Persistent headaches chronic Scoliosis chronic Back pain acute Segmental and somatic dysfunction of cervical region acute Segmental and somatic dysfunction of lumbar region acute Segmental and somatic dysfunction of thoracic region acute Scoliosis [facility] Work Phone: Evaluation note* Diagnosis Encounter for supervision of normal first in first trimester- Primary Supervision of normal first Early stage of state, incidental Nausea and vomiting in Unspecified vomiting of , unspecified as to episode of care [facility] Diagnosis Encounter to determine viability of , single or unspecified fetus- Primary Encounter for supervision of normal first in first trimester Supervision of normal first Early stage of state, incidental [facility] Diagnosis Onset Date Resolution Status Chronic neck pain chronic Segmental and somatic dysfunction of cervical region acute Segmental and somatic dysfunction of lumbar region acute Segmental and somatic dysfunction of thoracic region acute Chronic neck pain chronic Persistent headaches chronic Scoliosis chronic Back pain acute Segmental and somatic dysfunction of cervical region acute Segmental and somatic dysfunction of lumbar region acute Segmental and somatic dysfunction of thoracic region acute Persistent headaches chronic Scoliosis chronic Back pain acute Segmental and somatic dysfunction of cervical region acute Segmental and somatic dysfunction of lumbar region acute Segmental and somatic dysfunction of thoracic region acute Persistent headaches chronic Scoliosis chronic Back pain acute Segmental and somatic dysfunction of cervical region acute Segmental and somatic dysfunction of lumbar region acute Segmental and somatic dysfunction of thoracic region acute Persistent headaches chronic Scoliosis chronic Back pain acute Segmental and somatic dysfunction of cervical region acute Segmental and somatic dysfunction of lumbar region acute Segmental and somatic dysfunction of thoracic region acute Persistent headaches chronic Scoliosis chronic Back pain acute Segmental and somatic dysfunction of cervical region acute Segmental and somatic dysfunction of lumbar region acute Segmental and somatic dysfunction of thoracic region acute Scoliosis chronic Back pain acute Segmental and somatic dysfunction of cervical region acute Segmental and somatic dysfunction of lumbar region acute Segmental and somatic dysfunction of thoracic region acute Scoliosis chronic Back pain acute Segmental and somatic dysfunction of cervical region acute Segmental and somatic dysfunction of lumbar region acute Segmental and somatic dysfunction of sacral region acute Segmental and somatic dysfunction of thoracic region acute Scoliosis [facility] Work Phone: Evaluation note* Diagnosis Encounter for (NT) nuchal translucency scan- Primary Other specified screening Encounter for supervision of normal first in first trimester Supervision of normal first 12 weeks gestation of state, incidental [facility] Diagnosis Encounter for supervision of normal first in second trimester- Primary Supervision of normal first 14 weeks gestation of state, incidental [facility] Diagnosis 17 weeks gestation of - Primary state, incidental Encounter for supervision of normal first in second trimester Supervision of normal first Family history of Higuera syndrome Family history of congenital anomalies [facility]* Diagnosis 18 weeks gestation of - Primary state, incidental Encounter for supervision of normal first in second trimester Supervision of normal first [facility] Diagnosis 19 weeks gestation of - Primary state, incidental Encounter for supervision of normal first in second trimester Supervision of normal first Spotting during Spotting complicating , unspecified as to episode of care or not applicable [facility] Diagnosis Family history of Higuera syndrome- Primary Family history of congenital anomalies 21 weeks gestation of state, incidental Encounter for supervision of normal first in second trimester Supervision of normal first [facility] Diagnosis 25 weeks gestation of - Primary state, incidental Encounter for supervision of normal first in second trimester Supervision of normal first [facility] Diagnosis 27 weeks gestation of - Primary state, incidental Need for vaccination Need for prophylactic vaccination and inoculation against unspecified single disease [facility] Diagnosis Onset Date Resolution Status Back pain acute Segmental and somatic dysfunction of cervical region acute Segmental and somatic dysfunction of lumbar region acute Segmental and somatic dysfunction of sacral region acute Segmental and somatic dysfunction of thoracic region acute Scoliosis chronic Back pain acute Segmental and somatic dysfunction of cervical region acute Segmental and somatic dysfunction of lumbar region acute Segmental and somatic dysfunction of sacral region acute Segmental and somatic dysfunction of thoracic region acute Scoliosis chronic Back pain acute Segmental and somatic dysfunction of cervical region acute Segmental and somatic dysfunction of lumbar region acute Segmental and somatic dysfunction of sacral region acute Segmental and somatic dysfunction of thoracic region acute Scoliosis chronic Back pain acute Segmental and somatic dysfunction of cervical region acute Segmental and somatic dysfunction of lumbar region acute Segmental and somatic dysfunction of sacral region acute Segmental and somatic dysfunction of thoracic region acute Scoliosis chronic Back pain acute Segmental and somatic dysfunction of cervical region acute Segmental and somatic dysfunction of lumbar region acute Segmental and somatic dysfunction of thoracic region acute Scoliosis chronic Back pain acute Segmental and somatic dysfunction of cervical region acute Segmental and somatic dysfunction of lumbar region acute Segmental and somatic dysfunction of thoracic region acute Scoliosis chronic Back pain acute Segmental and somatic dysfunction of cervical region acute Segmental and somatic dysfunction of lumbar region acute Segmental and somatic dysfunction of thoracic region acute Scoliosis chronic Back pain acute Segmental and somatic dysfunction of cervical region acute Segmental and somatic dysfunction of lumbar region acute Segmental and somatic dysfunction of thoracic region acute Scoliosis [facility] Work Phone: Evaluation note* Diagnosis 29 weeks gestation of - Primary state, incidental [facility] Diagnosis 31 weeks gestation of - Primary state, incidental Encounter for supervision of normal first in second trimester Supervision of normal first Family history of Higuera syndrome Family history of congenital anomalies [facility] Diagnosis 33 weeks gestation of - Primary state, incidental [facility] Diagnosis Onset Date Resolution Status Back pain acute Segmental and somatic dysfunction of cervical region acute Segmental and somatic dysfunction of lumbar region acute Segmental and somatic dysfunction of sacral region acute Segmental and somatic dysfunction of thoracic region acute Scoliosis chronic Back pain acute Segmental and somatic dysfunction of cervical region acute Segmental and somatic dysfunction of lumbar region acute Segmental and somatic dysfunction of thoracic region acute Scoliosis chronic Back pain acute Segmental and somatic dysfunction of cervical region acute Segmental and somatic dysfunction of lumbar region acute Segmental and somatic dysfunction of thoracic region acute Scoliosis chronic Back pain acute Segmental and somatic dysfunction of cervical region acute Segmental and somatic dysfunction of lumbar region acute Segmental and somatic dysfunction of thoracic region acute Scoliosis chronic Back pain acute Segmental and somatic dysfunction of cervical region acute Segmental and somatic dysfunction of lumbar region acute Segmental and somatic dysfunction of thoracic region acute Scoliosis chronic Back pain acute Segmental and somatic dysfunction of cervical region acute Segmental and somatic dysfunction of lumbar region acute Segmental and somatic dysfunction of thoracic region acute Scoliosis chronic acute Shortness of breath acute Palpitations chronic Palpitations chronic Back pain acute Segmental and somatic dysfunction of cervical region acute Segmental and somatic dysfunction of lumbar region acute Segmental and somatic dysfunction of sacral region acute Segmental and somatic dysfunction of thoracic region acute Scoliosis chronic Back pain acute Segmental and somatic dysfunction of cervical region acute Segmental and somatic dysfunction of lumbar region acute Segmental and somatic dysfunction of sacral region acute Segmental and somatic dysfunction of thoracic region acute Scoliosis [facility] Work Phone: Evaluation note* Diagnosis Family history of Higuera syndrome- Primary Family history of congenital anomalies 37 weeks gestation of state, incidental [facility] 38 [facility] of - Primary state, incidental [facility] Diagnosis 39 weeks gestation of - Primary state, incidental Family history of Higuera syndrome Family history of congenital anomalies Encounter for supervision of normal first in second trimester Supervision of normal first [facility] Diagnosis Onset Date Resolution Status Back pain acute Segmental and somatic dysfunction of cervical region acute Segmental and somatic dysfunction of lumbar region acute Segmental and somatic dysfunction of thoracic region acute Scoliosis chronic Back pain acute Segmental and somatic dysfunction of cervical region acute Segmental and somatic dysfunction of lumbar region acute Segmental and somatic dysfunction of thoracic region acute Scoliosis chronic Back pain acute Segmental and somatic dysfunction of cervical region acute Segmental and somatic dysfunction of lumbar region acute Segmental and somatic dysfunction of thoracic region acute Scoliosis chronic acute Shortness of breath acute Palpitations chronic Palpitations chronic Back pain acute Segmental and somatic dysfunction of cervical region acute Segmental and somatic dysfunction of lumbar region acute Segmental and somatic dysfunction of sacral region acute Segmental and somatic dysfunction of thoracic region acute Scoliosis chronic Back pain acute Segmental and somatic dysfunction of cervical region acute Segmental and somatic dysfunction of lumbar region acute Segmental and somatic dysfunction of sacral region acute Segmental and somatic dysfunction of thoracic region acute Scoliosis chronic Back pain acute Segmental and somatic dysfunction of cervical region acute Segmental and somatic dysfunction of lumbar region acute Segmental and somatic dysfunction of sacral region acute Segmental and somatic dysfunction of thoracic region acute Scoliosis chronic 37 weeks gestation of resolved Vaginal discharge resolved Back pain acute Segmental and somatic dysfunction of cervical region acute Segmental and somatic dysfunction of lumbar region acute Segmental and somatic dysfunction of sacral region acute Segmental and somatic dysfunction of thoracic region acute Scoliosis chronic Back pain acute Segmental and somatic dysfunction of cervical region acute Segmental and somatic dysfunction of lumbar region acute Segmental and somatic dysfunction of sacral region acute Segmental and somatic dysfunction of thoracic region acute Scoliosis chronic 39 weeks gestation of acute Care and examination of lactating mother acute Encounter for elective induction of labor acute Laceration, obstetrical, second degree acute (spontaneous vaginal delivery) acute [facility] Work Phone: Evaluation note* Diagnosis 2 weeks follow-up- Primary care and examination of lactating mother [facility] Diagnosis care and examination- Primary Routine follow-up [facility] Diagnosis Onset Date Resolution Status Back pain acute Segmental and somatic dysfunction of cervical region acute Segmental and somatic dysfunction of lumbar region acute Segmental and somatic dysfunction of thoracic region acute Scoliosis chronic Elevated liver enzymes acute Preventative health care acu te Back pain acute Segmental and somatic dysfunction of cervical region acute Segmental and somatic dysfunction of lumbar region acute Segmental and somatic dysfunction of thoracic region acute Scoliosis chronic Back pain acute Segmental and somatic dysfunction of cervical region acute Segmental and somatic dysfunction of lumbar region acute Segmental and somatic dysfunction of thoracic region acute Scoliosis chronic Back pain acute Segmental and somatic dysfunction of cervical region acute Segmental and somatic dysfunction of lumbar region acute Segmental and somatic dysfunction of thoracic region acute Scoliosis [facility] Work Phone: Evaluation note* Diagnosis Other specified dyspareunia- Primary Urinary urgency Urgency of urination Vaginal pain Unspecified symptom associated with female genital organs [facility] Diagnosis care and examination- Primary Routine follow-up Anxiety Anxiety state, unspecified care and examination of lactating mother [facility]* Diagnosis Pelvic floor dysfunction- Primary Pelvic muscle wasting Urgency of urination [facility] Diagnosis Pelvic floor dysfunction- Primary Pelvic muscle wasting Urgency of urination [facility]* Diagnosis Pelvic floor dysfunction- Primary Pelvic muscle wasting Urgency of urination documented in this encounter [facility] note* Diagnosis Pelvic floor dysfunction- Primary Pelvic muscle wasting Urgency of urination documented in this encounter [facility] note* Diagnosis Encounter for gynecological examination (general) (routine) without abnormal findings- Primary Screening for cervical cancer Screening for malignant neoplasm of the cervix Encounter for screening for human papillomavirus (HPV) Special screening examination for human papillomavirus (HPV) Anxiety Anxiety state, unspecified documented in this encounter [facility] note* Diagnosis Encounter for medical examination to establish care- Primary Screening for depression Encounter for screening examination for other mental health and behavioral disorders Right wrist pain Pain in joint, forearm Depression, unspecified depression type documented in this encounter [facility] note* Diagnosis Pelvic floor dysfunction- Primary Pelvic muscle wasting Urgency of urination documented in this encounter [facility] note* Diagnosis Nausea- Primary Nausea alone documented in this encounter [facility] note* Diagnosis Less than 8 weeks gestation of - Primary state, incidental Encounter for supervision of other normal in first trimester Nausea and vomiting during Post depression Mental disorders of mother, Anxiety Anxiety state, unspecified [facility] Diagnosis Encounter for supervision of other normal in second trimester- Primary Nausea and vomiting during Anxiety Anxiety state, unspecified Post depression Mental disorders of mother, 12 weeks gestation of state, incidental Heartburn during in second trimester documented in this encounter [facility] note* Diagnosis Encounter for routine screening for malformation using ultrasonics- Primary 11 weeks gestation of state, incidental documented in this encounter [facility] note* Diagnosis Encounter for supervision of other normal in second trimester- Primary 16 weeks gestation of state, incidental Dysuria Vaginal itching Pruritus of genital organs Nausea and vomiting during Heartburn during in second trimester History of depression History of asthma Personal history of other diseases of respiratory system Depression affecting Malaise and fatigue Other malaise and fatigue Palpitations [facility]* Diagnosis Encounter for anatomic survey- Primary 20 weeks gestation of state, incidental [facility] Diagnosis Encounter for supervision of other normal in second trimester- Primary 20 weeks gestation of state, incidental Nausea and vomiting during Heartburn during in second trimester Depression affecting History of asthma Personal history of other diseases of respiratory system Palpitations Abnormal thyroid blood test Nonspecific abnormal results of thyroid function study [facility] Diagnosis Palpitations- Primary [facility]* Diagnosis 28 weeks gestation of (HCC)- Primary state, incidental Encounter for supervision of other normal in third trimester (HCC) Need for vaccination Need for prophylactic vaccination and inoculation against unspecified single disease Palpitations * Assessment & Plan Note - Jose England MD - 11/11/2024 9:46 AM EDTAssociated Problem(s): Supervision of normal (HCC) (Resolved 11/11/2024) * Assessment & Plan Note - Jose England MD - 11/11/2024 9:46 AM EDTAssociated Problem(s): Palpitations S/p cardiology evaluation - Benign recurrent palpitation likely supraventricular tachycardia Reviewed the Holter monitor the recorded episode is not consistent with VT We will schedule for echocardiography to rule out any structural heart disease No indication for medical therapy or intervention at this timeikely documented in this encounter [facility] note* Diagnosis 28 weeks gestation of (HCC)- Primary state, incidental Encounter for supervision of other normal in third trimester (HCC) Need for vaccination Need for prophylactic vaccination and inoculation against unspecified single disease Palpitations Encounter for supervision of other normal in third trimester (HCC)- Primary 30 weeks gestation of (HCC) state, incidental Nausea and vomiting during (HCC) Heartburn during in second trimester (HCC) Depression affecting (HCC) Palpitations Low T4 Nonspecific abnormal results of thyroid function study [facility] Diagnosis 28 weeks gestation of (HCC)- Primary state, incidental Encounter for supervision of other normal in third trimester ([facility]) Need for vaccination Need for prophylactic vaccination and inoculation against unspecified single disease Palpitations Encounter for supervision of other normal in third trimester ([facility])- Primary Nausea and vomiting during ([facility]) Palpitations Family history of Higuera syndrome Family history of congenital anomalies Anxiety Anxiety state, unspecified 34 weeks gestation of ([facility]) state, incidental [facility]* Diagnosis 28 weeks gestation of ([facility])- Primary state, incidental Encounter for supervision of other normal in third trimester ([facility]) Need for vaccination Need for prophylactic vaccination and inoculation against unspecified single disease Palpitations Encounter for supervision of other normal in third trimester ([facility])- Primary Palpitations Nausea and vomiting during ([facility]) Family history of Higuera syndrome Family history of congenital anomalies Anxiety Anxiety state, unspecified 36 weeks gestation of ([facility]) state, incidental Heartburn during in second trimester ([facility]) [facility] Diagnosis 28 weeks gestation of ([facility])- Primary state, incidental Encounter for supervision of other normal in third trimester ([facility]) Need for vaccination Need for prophylactic vaccination and inoculation against unspecified single disease Palpitations Encounter for supervision of other normal in third trimester ([facility])- Primary 37 weeks gestation of ([facility]) state, incidental History of depression History of asthma Personal history of other diseases of respiratory system Depression affecting ([facility]) [facility] Diagnosis 28 weeks gestation of ([facility])- Primary state, incidental Encounter for supervision of other normal in third trimester ([facility]) Need for vaccination Need for prophylactic vaccination and inoculation against unspecified single disease Palpitations Encounter for supervision of other normal in third trimester ([facility])- Primary 38 weeks gestation of ([facility]) state, incidental [facility] Diagnosis 28 weeks gestation of ([facility])- Primary state, incidental Encounter for supervision of other normal in third trimester ([facility]) Need for vaccination Need for prophylactic vaccination and inoculation against unspecified single disease Palpitations Encounter for supervision of other normal in third trimester ([facility])- Primary History of depression History of asthma Personal history of other diseases of respiratory system 39 weeks gestation of ([facility]) state, incidental [facility]* Diagnosis 28 weeks gestation of (HCC)- Primary state, incidental Encounter for supervision of other normal in third trimester (HCC) Need for vaccination Need for prophylactic vaccination and inoculation against unspecified single disease Palpitations Encounter for supervision of other normal in third trimester ([facility])- Primary History of asthma Personal history of other diseases of respiratory system 39 weeks gestation of (HCC) state, incidental Palpitations Depression affecting (HCC) Anxiety Anxiety state, unspecified documented in this encounter [facility] for referral (narrative)* Diagnostic Procedure Only (Routine) - Authorized Specialty Diagnoses / Procedures Referred By Heidi t Referred To [facility] Diagnoses Encounter for supervision of normal first in first trimester Procedures NUCHAL TRANSLUCENCY WHI US NUCHAL TRANSLUCENCY 1ST GESTATION Jacki Lopez MD [address] [place] [address] [facility] [address] [id number] Referral ID Status Reason Start Date Expiration Date Visits Requested Visits Authorized [id number] Authorized Auto-Generat ed Referral 08/07/2022 08/07/2023 1 1 * Diagnostic Procedure Only (Routine) - Pending Review Specialty Diagnoses / Procedures Referred By eHidi juan Referred To [facility] Diagnoses Encounter for supervision of normal first in first trimester Procedures OBSTETRIC ULTRASOUND WHI US PREG UTERUS AFTER 1ST TRIMEST GESTATION Jacki Lopez MD [address] [place] [address] [facility] [address] [id number] Referral ID Status Reason Start Date Expiration Date Visits Requested Visits Authorized [id number] Pending Review Auto-Generat ed Referral 08/07/2022 08/07/2023 1 1 [facility] for referral (narrative)* Diagnostic Procedure Only (Routine) - Pending Review Specialty Diagnoses / Procedures Referred By Heidi t Referred To Contact [facility] Diagnoses 33 weeks gestation of Procedures OBSTETRIC ULTRASOUND WHI US PREG UTERUS AFTER 1ST TRIMEST GESTATION Machelle Weems APRN.CNM [address] [place] [address] [address] Referral ID Status Reason Start Date Expiration Date Visits Requested Visits Authorized [id number] Pending Review Auto-Generat ed Referral 01/17/2023 01/17/2024 1 1 [facility] for referral (narrative)* Diagnostic Procedure Only (Routine) - Authorized Specialty Diagnoses / Procedures Referred By Contac t Referred To Contact [facility] Diagnoses Encounter for supervision of other normal in first trimester Procedures NUCHAL TRANSLUCENCY WHI US NUCHAL TRANSLUCENCY Machelle Weems APRN.CNM [address] [place] [address] [address] Referral ID Status Reason Start Date Expiration Date Visits Requested Visits Authorized [id number] Authorized Auto-Generat ed Referral 06/16/2025 1 1 [facility] for referral (narrative)* Diagnostic Procedure Only (Routine) - Authorized Specialty Diagnoses / Procedures Referred By Contac t Referred To Contact [facility] Diagnoses Encounter for supervision of other normal in second trimester Nausea and vomiting during Anxiety Post depression 11 weeks gestation of Procedures OBSTETRIC ULTRASOUND WHI US PREG UTERUS AFTER 1ST TRIMEST GESTATION Machelle Weems APRN.CNM [address] [place] [address] [address] Referral ID Status Reason Start Date Expiration Date Visits Requested Visits Authorized [id number] Authorized Auto-Generat ed Referral 07/21/2025 1 1 [facility] for referral (narrative)* Outpatient Procedure (Routine) - Authorized Specialty Diagnoses / Procedures Referred By Contac t Referred To [facility] Diagnoses Encounter for supervision of other normal in second trimester Procedures ECG COMPLETE ECG ROUTINE ECG W/LEAST 12 LDS W/I&R Krissy Galvan APRN.CNM [address] [place] [address] [facility] [address] [place] [address] Referral ID Status Reason Start Date Expiration Date Visits Requested Visits Authorized [id number] Authorized Auto-Generat ed Referral 08/19/2024 08/19/2025 1 1 [facility] for referral (narrative)No reason for referral information [facility] Work Phone: Hospital Course Discharge Summary No Discharge Summary Informa tion Discharge Instructions Discharge Instructions No Discharge Instructions Summary Purpose Family History No Family History Records Found Relationship Condition Age at Onset Recorded Date/T rajiv grandmother Malignant neoplasm Unknown Cerebrovascular accident (CVA) Unknown grandfather Malignant neoplasm Unknown father Cardiac disease Unknown Hypertension Unknown Hyperlipidemia Unknown grandfather Cardiac disease Unknown Advance Directives No Advanced Directives Records Found Advance Directive Response Recorded Date/ Time Living Will No February 28, 2023 7:43pm Power of Radiology Specialist No February 28 7:43pm Advance Directive Response Recorded Date/ Time Living Will No February 28, 2023 6:43pm Power of Radiology Specialist No February 28 6:43pm Chief Complaint and Reason for Visit Chief Complaint yearly HRA E ORDER Reason for Visit Menstrual irregulari ty Preventative health care Chief Complaint Back pain Back pain ADJUSTMENT ADJUSTMENT ADJUSTMENT ADJUSTMENT ADJUSTMENT ADJUSTMENT 1 HR GLUCOSE Reason for Visit Back pain Segmental and somatic dysfunction of cervical region Segmental and somatic dysfunction of lumbar region Segmental and somatic dysfunction of sacral region Segmental and somatic dysfunction of thoracic region Scoliosis Back pain Segmental and somatic dysfunction of cervical region Segmental and somatic dysfunction of lumbar region Segmental and somatic dysfunction of sacral region Segmental and somatic dysfunction of thoracic region Scoliosis Back pain Segmental and somatic dysfunction of cervical region Segmental and somatic dysfunction of lumbar region Segmental and somatic dysfunction of sacral region Segmental and somatic dysfunction of thoracic region Scoliosis Back pain Segmental and somatic dysfunction of cervical region Segmental and somatic dysfunction of lumbar region Segmental and somatic dysfunction of sacral region Segmental and somatic dysfunction of thoracic region Scoliosis Back pain Segmental and somatic dysfunction of cervical region Segmental and somatic dysfunction of lumbar region Segmental and somatic dysfunction of thoracic region Scoliosis Back pain Segmental and somatic dysfunction of cervical region Segmental and somatic dysfunction of lumbar region Segmental and somatic dysfunction of thoracic region Scoliosis Back pain Segmental and somatic dysfunction of cervical region Segmental and somatic dysfunction of lumbar region Segmental and somatic dysfunction of thoracic region Scoliosis Back pain Segmental and somatic dysfunction of cervical region Segmental and somatic dysfunction of lumbar region Segmental and somatic dysfunction of thoracic region Scoliosis Chief Complaint ADJUSTMENT ADJUSTMENT ADJUSTMENT ADJUSTMENT ADJUSTMENT 1 HR GLUCOSE ADJUSTMENT SHORTNESS OF BREATH PALPITATIONS SOB (URGENT PER OLEGHE) ADJUSTMENT ARRTHTHMIA ADJUSTMENT 33 WKS GESTATION Reason for Visit Back pain Segmental and somatic dysfunction of cervical region Segmental and somatic dysfunction of lumbar region Segmental and somatic dysfunction of sacral region Segmental and somatic dysfunction of thoracic region Scoliosis Back pain Segmental and somatic dysfunction of cervical region Segmental and somatic dysfunction of lumbar region Segmental and somatic dysfunction of thoracic region Scoliosis Back pain Segmental and somatic dysfunction of cervical region Segmental and somatic dysfunction of lumbar region Segmental and somatic dysfunction of thoracic region Scoliosis Back pain Segmental and somatic dysfunction of cervical region Segmental and somatic dysfunction of lumbar region Segmental and somatic dysfunction of thoracic region Scoliosis Back pain Segmental and somatic dysfunction of cervical region Segmental and somatic dysfunction of lumbar region Segmental and somatic dysfunction of thoracic region Scoliosis Back pain Segmental and somatic dysfunction of cervical region Segmental and somatic dysfunction of lumbar region Segmental and somatic dysfunction of thoracic region Scoliosis Shortness of breath Palpitations Palpitations Back pain Segmental and somatic dysfunction of cervical region Segmental and somatic dysfunction of lumbar region Segmental and somatic dysfunction of sacral region Segmental and somatic dysfunction of thoracic region Scoliosis Back pain Segmental and somatic dysfunction of cervical region Segmental and somatic dysfunction of lumbar region Segmental and somatic dysfunction of sacral region Segmental and somatic dysfunction of thoracic region Scoliosis Chief Complaint ADJUSTMENT ADJUSTMENT 1 HR GLUCOSE ADJUSTMENT SHORTNESS OF BREATH PALPITATIONS SOB (URGENT PER OLEGHE) ADJUSTMENT ARRTHTHMIA ADJUSTMENT 33 WKS GESTATION ADJUSTMENT RULE OUT RUPTURE ADJUSTMENT Adjustment VAG DELIVERY Reason for Visit Back pain Segmental and somatic dysfunction of cervical region Segmental and somatic dysfunction of lumbar region Segmental and somatic dysfunction of thoracic region Scoliosis Back pain Segmental and somatic dysfunction of cervical region Segmental and somatic dysfunction of lumbar region Segmental and somatic dysfunction of thoracic region Scoliosis Back pain Segmental and somatic dysfunction of cervical region Segmental and somatic dysfunction of lumbar region Segmental and somatic dysfunction of thoracic region Scoliosis Shortness of breath Palpitations Palpitations Back pain Segmental and somatic dysfunction of cervical region Segmental and somatic dysfunction of lumbar region Segmental and somatic dysfunction of sacral region Segmental and somatic dysfunction of thoracic region Scoliosis Back pain Segmental and somatic dysfunction of cervical region Segmental and somatic dysfunction of lumbar region Segmental and somatic dysfunction of sacral region Segmental and somatic dysfunction of thoracic region Scoliosis Back pain Segmental and somatic dysfunction of cervical region Segmental and somatic dysfunction of lumbar region Segmental and somatic dysfunction of sacral region Segmental and somatic dysfunction of thoracic region Scoliosis 37 weeks gestation of Vaginal discharge Back pain Segmental and somatic dysfunction of cervical region Segmental and somatic dysfunction of lumbar region Segmental and somatic dysfunction of sacral region Segmental and somatic dysfunction of thoracic region Scoliosis Back pain Segmental and somatic dysfunction of cervical region Segmental and somatic dysfunction of lumbar region Segmental and somatic dysfunction of sacral region Segmental and somatic dysfunction of thoracic region Scoliosis 39 weeks gestation of Care and examination of lactating mother Encounter for elective induction of labor Laceration, obstetrical, second degree (spontaneous vaginal delivery) Chief Complaint Back pain 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 Back pain Back pain 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 Back pain Segmental and somatic dysfunction of cervical region Segmental and somatic dysfunction of lumbar region Segmental and somatic dysfunction of thoracic region Scoliosis Elevated liver enzymes Preventative health care Back pain Segmental and somatic dysfunction of cervical region Segmental and somatic dysfunction of lumbar region Segmental and somatic dysfunction of thoracic region Scoliosis Back pain Segmental and somatic dysfunction of cervical region Segmental and somatic dysfunction of lumbar region Segmental and somatic dysfunction of thoracic region Scoliosis Back pain Segmental and somatic dysfunction of cervical region Segmental and somatic dysfunction of lumbar region Segmental and somatic dysfunction of thoracic region Scoliosis Chief Complaint Admit Date ADJUSTMENT August 28, 2024 4 :50pm Adjustment September 29, 2024 9:2 9am ADJUSTMENT October 27, 2024 8:59 am ADJUSTMENT November 24, 2024 9:32am ADJUSTMENT December 22, 2024 8:58a m Reason for Visit Admit Date Segmental and somatic dysfunction of cer vical region August 28, 2024 4:50pm Segmental and somatic dysfunction of lum bar region August 28, 2024 4:50pm Segmental and somatic dysfunction of pel adalberto region August 28, 2024 4:50pm Segmental and somatic dysfunction of tho racic region August 28, 2024 4:50pm Scoliosis August 28, 2024 4 :50pm Segmental and somatic dysfunction of cer vical region September 29, 2024 9:29am Segmental and somatic dysfunction of lum bar region September 29, 2024 9:29am Segmental and somatic dysfunction of pel adalberto region September 29, 2024 9:29am Segmental and somatic dysfunction of tho racic region September 29, 2024 9:29am Scoliosis September 29, 2024 9:2 9am Segmental and somatic dysfunction of cer vical region October 27, 2024 8:59am Segmental and somatic dysfunction of lum bar region October 27, 2024 8:59am Segmental and somatic dysfunction of pel adalberto region October 27, 2024 8:59am Segmental and somatic dysfunction of tho racic region October 27, 2024 8:59am Scoliosis October 27, 2024 8:59 am Segmental and somatic dysfunction of cer vical region November 24, 2024 9:32am Segmental and somatic dysfunction of lum bar region November 24, 2024 9:32am Segmental and somatic dysfunction of pel adalberto region November 24, 2024 9:32am Segmental and somatic dysfunction of tho racic region November 24, 2024 9:32am Scoliosis November 24, 2024 9:32am Segmental and somatic dysfunction of cer vical region December 22, 2024 8:58am Segmental and somatic dysfunction of lum bar region December 22, 2024 8:58am Segmental and somatic dysfunction of sac ral region December 22, 2024 8:58am Segmental and somatic dysfunction of tho racic region December 22, 2024 8:58am Scoliosis December 22, 2024 8:58a m Chief Complaint Admit Date Adjustment September 29, 2024 9:2 9am ADJUSTMENT October 27, 2024 8:59 am ADJUSTMENT November 24, 2024 9:32am ADJUSTMENT December 22, 2024 8:58a m ADJUSTMENT December 29, 2024 2:01p m Reason for Visit Admit Date Segmental and somatic dysfunction of cer vical region September 29, 2024 9:29am Segmental and somatic dysfunction of lum bar region September 29, 2024 9:29am Segmental and somatic dysfunction of pel adalberto region September 29, 2024 9:29am Segmental and somatic dysfunction of tho racic region September 29, 2024 9:29am Scoliosis September 29, 2024 9:2 9am Segmental and somatic dysfunction of cer vical region October 27, 2024 8:59am Segmental and somatic dysfunction of lum bar region October 27, 2024 8:59am Segmental and somatic dysfunction of pel adalberto region October 27, 2024 8:59am Segmental and somatic dysfunction of tho racic region October 27, 2024 8:59am Scoliosis October 27, 2024 8:59 am Segmental and somatic dysfunction of cer vical region November 24, 2024 9:32am Segmental and somatic dysfunction of lum bar region November 24, 2024 9:32am Segmental and somatic dysfunction of pel adalberto region November 24, 2024 9:32am Segmental and somatic dysfunction of tho racic region November 24, 2024 9:32am Scoliosis November 24, 2024 9:32am Segmental and somatic dysfunction of cer vical region December 22, 2024 8:58am Segmental and somatic dysfunction of lum bar region December 22, 2024 8:58am Segmental and somatic dysfunction of sac ral region December 22, 2024 8:58am Segmental and somatic dysfunction of tho racic region December 22, 2024 8:58am Scoliosis December 22, 2024 8:58a m Segmental and somatic dysfunction of cer vical region December 29, 2024 2:01pm Segmental and somatic dysfunction of lum bar region December 29, 2024 2:01pm Segmental and somatic dysfunction of pel adalberto region December 29, 2024 2:01pm Segmental and somatic dysfunction of sac ral region December 29, 2024 2:01pm Segmental and somatic dysfunction of tho racic region December 29, 2024 2:01pm Scoliosis December 29, 2024 2:01p m Chief Complaint Admit Date Adjustment September 29, 2024 9:2 9am ADJUSTMENT October 27, 2024 8:59 am ADJUSTMENT November 24, 2024 9:32am ADJUSTMENT December 22, 2024 8:58a m ADJUSTMENT December 29, 2024 2:01p m ADJUSTMENT January 05, 2025 3:28 pm Reason for Visit Admit Date Segmental and somatic dysfunction of cer vical region September 29, 2024 9:29am Segmental and somatic dysfunction of lum bar region September 29, 2024 9:29am Segmental and somatic dysfunction of pel adalberto region September 29, 2024 9:29am Segmental and somatic dysfunction of tho racic region September 29, 2024 9:29am Scoliosis September 29, 2024 9:2 9am Segmental and somatic dysfunction of cer vical region October 27, 2024 8:59am Segmental and somatic dysfunction of lum bar region October 27, 2024 8:59am Segmental and somatic dysfunction of pel adalberto region October 27, 2024 8:59am Segmental and somatic dysfunction of tho racic region October 27, 2024 8:59am Scoliosis October 27, 2024 8:59 am Segmental and somatic dysfunction of cer vical region November 24, 2024 9:32am Segmental and somatic dysfunction of lum bar region November 24, 2024 9:32am Segmental and somatic dysfunction of pel adalberto region November 24, 2024 9:32am Segmental and somatic dysfunction of tho racic region November 24, 2024 9:32am Scoliosis November 24, 2024 9:32am Segmental and somatic dysfunction of cer vical region December 22, 2024 8:58am Segmental and somatic dysfunction of lum bar region December 22, 2024 8:58am Segmental and somatic dysfunction of sac ral region December 22, 2024 8:58am Segmental and somatic dysfunction of tho racic region December 22, 2024 8:58am Scoliosis December 22, 2024 8:58a m Segmental and somatic dysfunction of cer vical region December 29, 2024 2:01pm Segmental and somatic dysfunction of lum bar region December 29, 2024 2:01pm Segmental and somatic dysfunction of sac ral region December 29, 2024 2:01pm Segmental and somatic dysfunction of tho racic region December 29, 2024 2:01pm Scoliosis December 29, 2024 2:01p m Segmental and somatic dysfunction of cer vical region January 05, 2025 3:28pm Segmental and somatic dysfunction of lum bar region January 05, 2025 3:28pm Segmental and somatic dysfunction of pel adalberto region January 05, 2025 3:28pm Segmental and somatic dysfunction of sac ral region January 05, 2025 3:28pm Segmental and somatic dysfunction of tho racic region January 05, 2025 3:28pm Scoliosis January 05, 2025 3:28 pm Chief Complaint Admit Date Adjustment September 29, 2024 9:2 9am ADJUSTMENT October 27, 2024 8:59 am ADJUSTMENT November 24, 2024 9:32am ADJUSTMENT December 22, 2024 8:58a m ADJUSTMENT December 29, 2024 2:01p m ADJUSTMENT January 05, 2025 3:28 pm ADJUSTMENT January 12, 2025 9:00 am Reason for Visit Admit Date Segmental and somatic dysfunction of cer vical region September 29, 2024 9:29am Segmental and somatic dysfunction of lum bar region September 29, 2024 9:29am Segmental and somatic dysfunction of pel adalberto region September 29, 2024 9:29am Segmental and somatic dysfunction of tho racic region September 29, 2024 9:29am Scoliosis September 29, 2024 9:2 9am Segmental and somatic dysfunction of cer vical region October 27, 2024 8:59am Segmental and somatic dysfunction of lum bar region October 27, 2024 8:59am Segmental and somatic dysfunction of pel adalberto region October 27, 2024 8:59am Segmental and somatic dysfunction of tho racic region October 27, 2024 8:59am Scoliosis October 27, 2024 8:59 am Segmental and somatic dysfunction of cer vical region November 24, 2024 9:32am Segmental and somatic dysfunction of lum bar region November 24, 2024 9:32am Segmental and somatic dysfunction of pel adalberto region November 24, 2024 9:32am Segmental and somatic dysfunction of tho racic region November 24, 2024 9:32am Scoliosis November 24, 2024 9:32am Segmental and somatic dysfunction of cer vical region December 22, 2024 8:58am Segmental and somatic dysfunction of lum bar region December 22, 2024 8:58am Segmental and somatic dysfunction of sac ral region December 22, 2024 8:58am Segmental and somatic dysfunction of tho racic region December 22, 2024 8:58am Scoliosis December 22, 2024 8:58a m Segmental and somatic dysfunction of cer vical region December 29, 2024 2:01pm Segmental and somatic dysfunction of lum bar region December 29, 2024 2:01pm Segmental and somatic dysfunction of sac ral region December 29, 2024 2:01pm Segmental and somatic dysfunction of tho racic region December 29, 2024 2:01pm Scoliosis December 29, 2024 2:01p m Segmental and somatic dysfunction of cer vical region January 05, 2025 3:28pm Segmental and somatic dysfunction of lum bar region January 05, 2025 3:28pm Segmental and somatic dysfunction of sac ral region January 05, 2025 3:28pm Segmental and somatic dysfunction of tho racic region January 05, 2025 3:28pm Scoliosis January 05, 2025 3:28 pm Segmental and somatic dysfunction of cer vical region January 12, 2025 9:00am Segmental and somatic dysfunction of lum bar region January 12, 2025 9:00am Segmental and somatic dysfunction of pel adalberto region January 12, 2025 9:00am Segmental and somatic dysfunction of sac ral region January 12, 2025 9:00am Segmental and somatic dysfunction of tho racic region January 12, 2025 9:00am Scoliosis January 12, 2025 9:00 am Chief Complaint Admit Date Adjustment September 29, 2024 9:2 9am ADJUSTMENT October 27, 2024 8:59 am ADJUSTMENT November 24, 2024 9:32am ADJUSTMENT December 22, 2024 8:58a m ADJUSTMENT December 29, 2024 2:01p m ADJUSTMENT January 05, 2025 3:28 pm ADJUSTMENT January 12, 2025 9:00 am ADJUSTMENT January 19, 2025 9:02 am Reason for Visit Admit Date Segmental and somatic dysfunction of cer vical region September 29, 2024 9:29am Segmental and somatic dysfunction of lum bar region September 29, 2024 9:29am Segmental and somatic dysfunction of pel adalberto region September 29, 2024 9:29am Segmental and somatic dysfunction of tho racic region September 29, 2024 9:29am Scoliosis September 29, 2024 9:2 9am Segmental and somatic dysfunction of cer vical region October 27, 2024 8:59am Segmental and somatic dysfunction of lum bar region October 27, 2024 8:59am Segmental and somatic dysfunction of pel adalberto region October 27, 2024 8:59am Segmental and somatic dysfunction of tho racic region October 27, 2024 8:59am Scoliosis October 27, 2024 8:59 am Segmental and somatic dysfunction of cer vical region November 24, 2024 9:32am Segmental and somatic dysfunction of lum bar region November 24, 2024 9:32am Segmental and somatic dysfunction of pel adalberto region November 24, 2024 9:32am Segmental and somatic dysfunction of tho racic region November 24, 2024 9:32am Scoliosis November 24, 2024 9:32am Segmental and somatic dysfunction of cer vical region December 22, 2024 8:58am Segmental and somatic dysfunction of lum bar region December 22, 2024 8:58am Segmental and somatic dysfunction of sac ral region December 22, 2024 8:58am Segmental and somatic dysfunction of tho racic region December 22, 2024 8:58am Scoliosis December 22, 2024 8:58a m Segmental and somatic dysfunction of cer vical region December 29, 2024 2:01pm Segmental and somatic dysfunction of lum bar region December 29, 2024 2:01pm Segmental and somatic dysfunction of sac ral region December 29, 2024 2:01pm Segmental and somatic dysfunction of tho racic region December 29, 2024 2:01pm Scoliosis December 29, 2024 2:01p m Segmental and somatic dysfunction of cer vical region January 05, 2025 3:28pm Segmental and somatic dysfunction of lum bar region January 05, 2025 3:28pm Segmental and somatic dysfunction of sac ral region January 05, 2025 3:28pm Segmental and somatic dysfunction of tho racic region January 05, 2025 3:28pm Scoliosis January 05, 2025 3:28 pm Segmental and somatic dysfunction of cer vical region January 12, 2025 9:00am Segmental and somatic dysfunction of lum bar region January 12, 2025 9:00am Segmental and somatic dysfunction of sac ral region January 12, 2025 9:00am Segmental and somatic dysfunction of tho racic region January 12, 2025 9:00am Scoliosis January 12, 2025 9:00 am Segmental and somatic dysfunction of cer vical region January 19, 2025 9:02am Segmental and somatic dysfunction of lum bar region January 19, 2025 9:02am Segmental and somatic dysfunction of sac ral region January 19, 2025 9:02am Segmental and somatic dysfunction of tho racic region January 19, 2025 9:02am Scoliosis January 19, 2025 9:02 am Chief Complaint Admit Date Adjustment September 29, 2024 9:2 9am ADJUSTMENT October 27, 2024 8:59 am ADJUSTMENT November 24, 2024 9:32am ADJUSTMENT December 22, 2024 8:58a m ADJUSTMENT December 29, 2024 2:01p m ADJUSTMENT January 05, 2025 3:28 pm ADJUSTMENT January 12, 2025 9:00 am ADJUSTMENT January 19, 2025 9:02 am ADJUSTMENT 2025 2:57p m Health Concerns Problem Noted Date OB Reminders [...] Noted Date Diagnosed Date OB Reminders 08/07/2022 Reason for Referral Specialty Diagnoses / Procedures Referred By Heidi juan Referred To Contact [facility] Diagnoses Other specified dyspareunia Procedures CONSULT TO PHYSICAL THERAPY PHYSICAL THERAPY EVALUATION HIGH COMPLEX 45 MINS Machelle Weems APRN.CNM [address] [place] [address] [facility] [address] [address] Referral ID Status Reason Start Date Expiration Date Visits Requested Visits Authorized [id number] Pending Review Auto-Generat ed Referral 08/24/2023 08/23/2024 1 1 Specialty Diagnoses / Procedures Referred By Heidi juan Referred To Contact Diagnoses Anxiety care and examination of lactating mother Procedures CONSULT TO [facility]OM[facility] OFFICE/OUTPATIENT [facility] MDM 60 MINUTES Machelle Weems APRN.CNM [address] [address] Referral ID Status Reason Start Date Expiration Date Visits Requested Visits Authorized [id number] Authorized PCP Requested Referral 11/26/2023 11/25/2024 1 1 Additional Source Comments INFORMATION SOURCE (unrecogn ized section and content) DATE CREATED AUTHOR 01/28/2018 Merlyn Gonzales [email or web address] DATE CREATED AUTHOR AUTHOR'S ORGANIZ ATION 01/28/2024 [facility] DATE CREATED AUTHOR AUTHOR'S ORGANIZ ATION 01/30/2025 [facility] DATE CREATED AUTHOR AUTHOR'S ORGANIZ ATION 01/30/2025 [facility] Goals (unrecognized section and content) Goals may be documented in a n alternate section Source Comments (unrecognize d section and content) In the event this informatio n is protected by the Federal Confidentiality of Alcohol and Drug Abuse Patient Records regulations: The Federal rules restrict any use of the information to criminally investigate or prosecute any alcohol or drug abuse patient.[facility] the event this information is protected by the Federal Confidentiality of Alcohol and Drug Abuse Patient Records regulations: The Federal rules restrict any use of the information to criminally investigate or prosecute any alcohol or drug abuse patient.[facility] SystemIn the event this information is protected by the Federal Confidentiality of Alcohol and Drug Abuse Patient Records regulations: The Federal rules restrict any use of the information to criminally investigate or prosecute any alcohol or drug abuse patient.[facility] SystemIn the event this information is protected by the Federal Confidentiality of Alcohol and Drug Abuse Patient Records regulations: The Federal rules restrict any use of the information to criminally investigate or prosecute any alcohol or drug abuse patient.[facility] SystemIn the event this information is protected by the Federal Confidentiality of Alcohol and Drug Abuse Patient Records regulations: The Federal rules restrict any use of the information to criminally investigate or prosecute any alcohol or drug abuse patient.[facility] SystemIn the event this information is protected by the Federal Confidentiality of Alcohol and Drug Abuse Patient Records regulations: The Federal rules restrict any use of the information to criminally investigate or prosecute any alcohol or drug abuse patient.[facility] SystemIn the event this information is protected by the Federal Confidentiality of Alcohol and Drug Abuse Patient Records regulations: The Federal rules restrict any use of the information to criminally investigate or prosecute any alcohol or drug abuse patient.[facility] SystemIn the event this information is protected by the Federal Confidentiality of Alcohol and Drug Abuse Patient Records regulations: The Federal rules restrict any use of the information to criminally investigate or prosecute any alcohol or drug abuse patient.[facility] SystemIn the event this information is protected by the Federal Confidentiality of Alcohol and Drug Abuse Patient Records regulations: The Federal rules restrict any use of the information to criminally investigate or prosecute any alcohol or drug abuse patient.[facility] SystemIn the event this information is protected by the Federal Confidentiality of Alcohol and Drug Abuse Patient Records regulations: The Federal rules restrict any use of the information to criminally investigate or prosecute any alcohol or drug abuse patient.[facility] SystemIn the event this information is protected by the Federal Confidentiality of Alcohol and Drug Abuse Patient Records regulations: The Federal rules restrict any use of the information to criminally investigate or prosecute any alcohol or drug abuse patient.[facility] SystemIn the event this information is protected by the Federal Confidentiality of Alcohol and Drug Abuse Patient Records regulations: The Federal rules restrict any use of the information to criminally investigate or prosecute any alcohol or drug abuse patient.[facility] SystemIn the event this information is protected by the Federal Confidentiality of Alcohol and Drug Abuse Patient Records regulations: The Federal rules restrict any use of the information to criminally investigate or prosecute any alcohol or drug abuse patient.[facility] SystemIn the event this information is protected by the Federal Confidentiality of Alcohol and Drug Abuse Patient Records regulations: The Federal rules restrict any use of the information to criminally investigate or prosecute any alcohol or drug abuse patient.[facility] SystemIn the event this information is protected by the Federal Confidentiality of Alcohol and Drug Abuse Patient Records regulations: The Federal rules restrict any use of the information to criminally investigate or prosecute any alcohol or drug abuse patient.[facility] SystemIn the event this information is protected by the Federal Confidentiality of Alcohol and Drug Abuse Patient Records regulations: The Federal rules restrict any use of the information to criminally investigate or prosecute any alcohol or drug abuse patient.[facility] SystemIn the event this information is protected by the Federal Confidentiality of Alcohol and Drug Abuse Patient Records regulations: The Federal rules restrict any use of the information to criminally investigate or prosecute any alcohol or drug abuse patient.[facility] SystemIn the event this information is protected by the Federal Confidentiality of Alcohol and Drug Abuse Patient Records regulations: The Federal rules restrict any use of the information to criminally investigate or prosecute any alcohol or drug abuse patient.[facility] SystemIn the event this information is protected by the Federal Confidentiality of Alcohol and Drug Abuse Patient Records regulations: The Federal rules restrict any use of the information to criminally investigate or prosecute any alcohol or drug abuse patient.[facility] SystemIn the event this information is protected by the Federal Confidentiality of Alcohol and Drug Abuse Patient Records regulations: The Federal rules restrict any use of the information to criminally investigate or prosecute any alcohol or drug abuse patient.[facility] SystemIn the event this information is protected by the Federal Confidentiality of Alcohol and Drug Abuse Patient Records regulations: The Federal rules restrict any use of the information to criminally investigate or prosecute any alcohol or drug abuse patient.[facility] SystemIn the event this information is protected by the Federal Confidentiality of Alcohol and Drug Abuse Patient Records regulations: The Federal rules restrict any use of the information to criminally investigate or prosecute any alcohol or drug abuse patient.[facility] SystemIn the event this information is protected by the Federal Confidentiality of Alcohol and Drug Abuse Patient Records regulations: The Federal rules restrict any use of the information to criminally investigate or prosecute any alcohol or drug abuse patient.[facility] SystemIn the event this information is protected by the Federal Confidentiality of Alcohol and Drug Abuse Patient Records regulations: The Federal rules restrict any use of the information to criminally investigate or prosecute any alcohol or drug abuse patient.[facility] SystemIn the event this information is protected by the Federal Confidentiality of Alcohol and Drug Abuse Patient Records regulations: The Federal rules restrict any use of the information to criminally investigate or prosecute any alcohol or drug abuse patient.[facility] SystemIn the event this information is protected by the Federal Confidentiality of Alcohol and Drug Abuse Patient Records regulations: The Federal rules restrict any use of the information to criminally investigate or prosecute any alcohol or drug abuse patient.[facility] SystemIn the event this information is protected by the Federal Confidentiality of Alcohol and Drug Abuse Patient Records regulations: The Federal rules restrict any use of the information to criminally investigate or prosecute any alcohol or drug abuse patient.[facility] SystemIn the event this information is protected by the Federal Confidentiality of Alcohol and Drug Abuse Patient Records regulations: The Federal rules restrict any use of the information to criminally investigate or prosecute any alcohol or drug abuse patient.[facility] SystemIn the event this information is protected by the Federal Confidentiality of Alcohol and Drug Abuse Patient Records regulations: The Federal rules restrict any use of the information to criminally investigate or prosecute any alcohol or drug abuse patient.[facility] SystemIn the event this information is protected by the Federal Confidentiality of Alcohol and Drug Abuse Patient Records regulations: The Federal rules restrict any use of the information to criminally investigate or prosecute any alcohol or drug abuse patient.[facility] SystemIn the event this information is protected by the Federal Confidentiality of Alcohol and Drug Abuse Patient Records regulations: The Federal rules restrict any use of the information to criminally investigate or prosecute any alcohol or drug abuse patient.[facility] SystemIn the event this information is protected by the Federal Confidentiality of Alcohol and Drug Abuse Patient Records regulations: The Federal rules restrict any use of the information to criminally investigate or prosecute any alcohol or drug abuse patient.[facility] SystemIn the event this information is protected by the Federal Confidentiality of Alcohol and Drug Abuse Patient Records regulations: The Federal rules restrict any use of the information to criminally investigate or prosecute any alcohol or drug abuse patient.[facility] SystemIn the event this information is protected by the Federal Confidentiality of Alcohol and Drug Abuse Patient Records regulations: The Federal rules restrict any use of the information to criminally investigate or prosecute any alcohol or drug abuse patient.[facility] SystemIn the event this information is protected by the Federal Confidentiality of Alcohol and Drug Abuse Patient Records regulations: The Federal rules restrict any use of the information to criminally investigate or prosecute any alcohol or drug abuse patient.[facility] SystemIn the event this information is protected by the Federal Confidentiality of Alcohol and Drug Abuse Patient Records regulations: The Federal rules restrict any use of the information to criminally investigate or prosecute any alcohol or drug abuse patient.[facility] SystemIn the event this information is protected by the Federal Confidentiality of Alcohol and Drug Abuse Patient Records regulations: The Federal rules restrict any use of the information to criminally investigate or prosecute any alcohol or drug abuse patient.[facility] SystemIn the event this information is protected by the Federal Confidentiality of Alcohol and Drug Abuse Patient Records regulations: The Federal rules restrict any use of the information to criminally investigate or prosecute any alcohol or drug abuse patient.[facility] SystemIn the event this information is protected by the Federal Confidentiality of Alcohol and Drug Abuse Patient Records regulations: The Federal rules restrict any use of the information to criminally investigate or prosecute any alcohol or drug abuse patient.[facility] SystemIn the event this information is protected by the Federal Confidentiality of Alcohol and Drug Abuse Patient Records regulations: The Federal rules restrict any use of the information to criminally investigate or prosecute any alcohol or drug abuse patient.[facility] SystemIn the event this information is protected by the Federal Confidentiality of Alcohol and Drug Abuse Patient Records regulations: The Federal rules restrict any use of the information to criminally investigate or prosecute any alcohol or drug abuse patient.[facility] SystemIn the event this information is protected by the Federal Confidentiality of Alcohol and Drug Abuse Patient Records regulations: The Federal rules restrict any use of the information to criminally investigate or prosecute any alcohol or drug abuse patient.[facility] SystemIn the event this information is protected by the Federal Confidentiality of Alcohol and Drug Abuse Patient Records regulations: The Federal rules restrict any use of the information to criminally investigate or prosecute any alcohol or drug abuse patient.[facility] SystemIn the event this information is protected by the Federal Confidentiality of Alcohol and Drug Abuse Patient Records regulations: The Federal rules restrict any use of the information to criminally investigate or prosecute any alcohol or drug abuse patient.[facility] SystemIn the event this information is protected by the Federal Confidentiality of Alcohol and Drug Abuse Patient Records regulations: The Federal rules restrict any use of the information to criminally investigate or prosecute any alcohol or drug abuse patient.[facility] SystemIn the event this information is protected by the Federal Confidentiality of Alcohol and Drug Abuse Patient Records regulations: The Federal rules restrict any use of the information to criminally investigate or prosecute any alcohol or drug abuse patient.[facility] SystemIn the event this information is protected by the Federal Confidentiality of Alcohol and Drug Abuse Patient Records regulations: The Federal rules restrict any use of the information to criminally investigate or prosecute any alcohol or drug abuse patient.[facility] SystemIn the event this information is protected by the Federal Confidentiality of Alcohol and Drug Abuse Patient Records regulations: The Federal rules restrict any use of the information to criminally investigate or prosecute any alcohol or drug abuse patient.[facility] SystemIn the event this information is protected by the Federal Confidentiality of Alcohol and Drug Abuse Patient Records regulations: The Federal rules restrict any use of the information to criminally investigate or prosecute any alcohol or drug abuse patient.[facility] SystemIn the event this information is protected by the Federal Confidentiality of Alcohol and Drug Abuse Patient Records regulations: The Federal rules restrict any use of the information to criminally investigate or prosecute any alcohol or drug abuse patient.[facility] SystemIn the event this information is protected by the Federal Confidentiality of Alcohol and Drug Abuse Patient Records regulations: The Federal rules restrict any use of the information to criminally investigate or prosecute any alcohol or drug abuse patient.[facility] SystemIn the event this information is protected by the Federal Confidentiality of Alcohol and Drug Abuse Patient Records regulations: The Federal rules restrict any use of the information to criminally investigate or prosecute any alcohol or drug abuse patient.[facility] SystemIn the event this information is protected by the Federal Confidentiality of Alcohol and Drug Abuse Patient Records regulations: The Federal rules restrict any use of the information to criminally investigate or prosecute any alcohol or drug abuse patient.[facility] SystemIn the event this information is protected by the Federal Confidentiality of Alcohol and Drug Abuse Patient Records regulations: The Federal rules restrict any use of the information to criminally investigate or prosecute any alcohol or drug abuse patient.[facility] SystemIn the event this information is protected by the Federal Confidentiality of Alcohol and Drug Abuse Patient Records regulations: The Federal rules restrict any use of the information to criminally investigate or prosecute any alcohol or drug abuse patient.[facility] SystemIn the event this information is protected by the Federal Confidentiality of Alcohol and Drug Abuse Patient Records regulations: The Federal rules restrict any use of the information to criminally investigate or prosecute any alcohol or drug abuse patient.[facility] SystemIn the event this information is protected by the Federal Confidentiality of Alcohol and Drug Abuse Patient Records regulations: The Federal rules restrict any use of the information to criminally investigate or prosecute any alcohol or drug abuse patient.[facility] SystemIn the event this information is protected by the Federal Confidentiality of Alcohol and Drug Abuse Patient Records regulations: The Federal rules restrict any use of the information to criminally investigate or prosecute any alcohol or drug abuse patient.[facility] SystemIn the event this information is protected by the Federal Confidentiality of Alcohol and Drug Abuse Patient Records regulations: The Federal rules restrict any use of the information to criminally investigate or prosecute any alcohol or drug abuse patient.[facility] SystemIn the event this information is protected by the Federal Confidentiality of Alcohol and Drug Abuse Patient Records regulations: The Federal rules restrict any use of the information to criminally investigate or prosecute any alcohol or drug abuse patient.[facility] SystemIn the event this information is protected by the Federal Confidentiality of Alcohol and Drug Abuse Patient Records regulations: The Federal rules restrict any use of the information to criminally investigate or prosecute any alcohol or drug abuse patient.[facility] SystemIn the event this information is protected by the Federal Confidentiality of Alcohol and Drug Abuse Patient Records regulations: The Federal rules restrict any use of the information to criminally investigate or prosecute any alcohol or drug abuse patient.[facility] SystemIn the event this information is protected by the Federal Confidentiality of Alcohol and Drug Abuse Patient Records regulations: The Federal rules restrict any use of the information to criminally investigate or prosecute any alcohol or drug abuse patient.[facility] SystemIn the event this information is protected by the Federal Confidentiality of Alcohol and Drug Abuse Patient Records regulations: The Federal rules restrict any use of the information to criminally investigate or prosecute any alcohol or drug abuse patient.[facility] SystemIn the event this information is protected by the Federal Confidentiality of Alcohol and Drug Abuse Patient Records regulations: The Federal rules restrict any use of the information to criminally investigate or prosecute any alcohol or drug abuse patient.[facility] SystemIn the event this information is protected by the Federal Confidentiality of Alcohol and Drug Abuse Patient Records regulations: The Federal rules restrict any use of the information to criminally investigate or prosecute any alcohol or drug abuse patient.[facility] SystemIn the event this information is protected by the Federal Confidentiality of Alcohol and Drug Abuse Patient Records regulations: The Federal rules restrict any use of the information to criminally investigate or prosecute any alcohol or drug abuse patient.[facility] SystemIn the event this information is protected by the Federal Confidentiality of Alcohol and Drug Abuse Patient Records regulations: The Federal rules restrict any use of the information to criminally investigate or prosecute any alcohol or drug abuse patient.[facility] Reason for Visit (unrecogniz ed section and content) Reason Comments Physical Therapy Specialty Diagnoses / Procedures Referred By Heidi juan Referred To Contact [facility] Diagnoses Other specified dyspareunia Procedures CONSULT TO PHYSICAL THERAPY PHYSICAL THERAPY EVALUATION HIGH COMPLEX 45 MINS DankMachelle APRN.CN [address] [place] [address] [facility] [place] [address] [place] [address] Referral ID Status Reason Start Date Expiration Date Visits Requested Visits Authorized [id number] Authorized Auto-Generat ed Referral 08/24/2023 07/22/2024 30 30 Reason Comments Physical Therapy PT Discharge Reason Comments Patient Question Reason Comments Results Reason Comments Care Specialty Diagnoses / Procedures Referred By Heidi juan Referred To Contact PAEDIATRIC THORACIC PHYSICIAN Diagnoses telemed PNOB- LMP 05/17, but states she ovulated 06/10 Procedures OFFICE/OUTPATIENT ESTABLISHED LOW MDM 20-29 MIN WHI NURSE Self Wstr, Nurse Pnob [facility] [address] [id number] Referral ID Status Reason Start Date Expiration Date Visits Re quested Visits Authorized [id number] Closed 07/05/2022 07/22/2022 1 1 Reason Comments Initial OB Visit Specialty Diagnoses / Procedures Referred By Heidi juan Referred To Contact PAEDIATRIC THORACIC PHYSICIAN Diagnoses NOB WHISBIRT Procedures [facility] OB 1ST EXAM Yousif Hagan MD [address] [place] [address] Jacki Lopez MD [address] [place] [address] Referral ID Status Reason Start Date Expiration Date Visits Re quested Visits Authorized [id number] Closed 08/07/2022 11/05/2022 1 1 Reason Onset Date Comments Refill Request 08/14/2022 Reason Comments US Specialty Diagnoses / Procedures Referred By Heidi juan Referred To Contact [facility] Diagnoses Encounter for supervision of normal first in first trimester Procedures NUCHAL TRANSLUCENCY WHI US NUCHAL TRANSLUCENCY 1ST GESTATION Jacki Lopez MD [address] [place] [address] [facility] [address] [place] [address] Referral ID Status Reason Start Date Expiration Date V isits Requested Visits Authorized [id number] Closed Auto-Generate d Referral 08/07/2022 08/07/2023 1 [...] Note Reason Comments Early Reason Comments Routine Reason Comments Vaginal Problem Reason Comments Care Depression Reason Comments PT Eval Reason Onset Date Comments Refill Request 02/15/2024 Reason Comments Well Woman Reason Comments Establish Care Reason Comments Initial OB Visit Reason Onset Date Comments Care 07/21/2024 Specialty Diagnoses / Procedures Referred By Contac t Referred To Contact [facility] Diagnoses Encounter for supervision of other normal in first trimester Procedures NUCHAL TRANSLUCENCY WHI US NUCHAL TRANSLUCENCY 1ST GESTATION Machelle Weems APRN.MANSI [address] [place] [address] [facility] [address] [place] [address] Referral ID Status Reason Start Date Expiration Date V isits Requested Visits Authorized [id number] Closed Auto-Generate d Referral 06/16/2024 06/16/2025 1 1 Reason Onset Date Comments Care 08/19/2024 Specialty Diagnoses / Procedures Referred By Contac t Referred To Contact [facility] Diagnoses Encounter for supervision of other normal in second trimester Nausea and vomiting during Anxiety Post depression 11 weeks gestation of Procedures OBSTETRIC ULTRASOUND WHI US PREG UTERUS AFTER 1ST TRIMEST GESTATION Machelle Weems APRN.MANSI [address] [place] [address] Phone: tel: fax: [facility] [address] [place] [address] Referral ID Status Reason Start Date Expiration Date V isits Requested Visits Authorized [id number] Closed Auto-Generate d Referral 07/21/2024 07/21/2025 1 1 Reason Onset Date Comments Care 09/17/2024 Reason Comments New Patient palpitations x 3 mon ths comes on anytime Specialty Diagnoses / Procedures Referred By Heidi juan Referred To Contact Cardiology Diagnoses Palpitations 20 weeks gestation of Procedures CONSULT TO CARDIOLOGY OFFICE/OUTPATIENT NEW HIGH MDM 60 MINUTES Krissy Galvan APRN.MANSI [address] [place] [address] Phone: tel: fax:[phone] Referral ID Status Reason Start Date Expiration Date V isits Requested Visits Authorized [id number] Closed PCP Requested Referral 09/16/2024 09/16/2025 1 1 Reason Onset Date Comments Results 10/20/2024 Reason Onset Date Comments Care 11/11/2024 Reason Onset Date Comments Care 11/25/2024 Reason Onset Date Comments Care 12/26/2024 Reason Onset Date Comments Care 01/08/2025 Reason Onset Date Comments Care 01/15/2025 Reason Onset Date Comments Population Health Navigation Outreach 01/20/2025 Ob/peds Reason Onset Date Comments Care 01/22/2025 Reason Onset Date Comments Care 2025 Reason Onset Date Comments Care 01/29/2025 Care Teams (unrecognized sec tion and content) Control Officer Relationship Specialty Start Date End Date Yousif Hagan MD PCP - General Internal Medicine 12/26/18 Control Officer Relationship Specialty Start Date End Date Yousif Hagan MD PCP - General Internal Medicine 12/26/18 Control Officer Relationship Specialty Start Date End Date Yousif Hagan MD PCP - General Internal Medicine 12/26/18 Control Officer Relationship Specialty Start Date End Date Yousif Hagan MD PCP - General Internal Medicine 12/26/18 Control Officer Relationship Specialty Start Date End Date Yousif Hagan MD PCP - General Internal Medicine 12/26/18 Control Officer Relationship Specialty Start Date End Date Yousif Hagan MD PCP - General Internal Medicine 12/26/18 Control Officer Relationship Specialty Start Date End Date Yousif Hagan MD PCP - General Internal Medicine 12/26/18 Team Status: Active Member Role Status Dates Dr. Yousif Hagan MD Family Provider Active Dr. Yousif Hagna MD Primary Care Provider Active Team Status: Inactive Member Role Status Dates Dr. Yousif Hagan MD Primary Care Provider, Refer ring Provider Active ARI Joseph Attending Provider Active Team Status: Inactive Member Role Status Dates Dr. Yousif Hagan MD Primary Care Provider, Refer ring Provider Active Dr. Enid Aquino DC Attending Provider Active Team Status: Active Member Role Status Dates Dr. Yousif Hagan MD Primary Care Provider Active Health Risk Assessment Attending Provider Active Team Status: Inactive Member Role Status Dates Dr. Yousif Hagan MD Primary Care Provider, Atten ding Provider Active Team Status: Inactive Member Role Status Dates Dr. Yousif Hagan MD Primary Care Provider Active Dr. Enid Aquino DC Attending Provider, Referring Pro vider Active Team Status: Inactive Member Role Status Dates Dr. Yousif Hagan MD Primary Care Provider Active Dr. Jacki Dumont MD Attending Provider Ac tive Team Status: Inactive Member Role Status Dates Dr. Yousif Hagan MD Primary Care Provider Active Dr. Enid Aquino DC Attending Provider Active Team Status: Inactive Member Role Status Dates Dr. Yousif Hagan MD Primary Care Provider Active Dr. Jacki Dumont MD Attending Provider, [facility] Provider Active Control Officer Relationship Specialty Start Date End Date Yousif Hagan MD PCP - General Internal Medicine 12/26/18 Control Officer Relationship Specialty Start Date End Date Yousif Hagan MD PCP - General Internal Medicine 12/26/18 Control Officer Relationship Specialty Start Date End Date Yousif Hagan MD PCP - General Internal Medicine 12/26/18 Control Officer Relationship Specialty Start Date End Date Yousif Hagan MD PCP - General Internal Medicine 12/26/18 Control Officer Relationship Specialty Start Date End Date Yousif Hagan MD PCP - General Internal Medicine 12/26/18 Control Officer Relationship Specialty Start Date End Date Yousif Hagan MD PCP - General Internal Medicine 12/26/18 Control Officer Relationship Specialty Start Date End Date Yousif Hagan MD PCP - General Internal Medicine 12/26/18 Team Status: Inactive Member Role Status Dates Dr. Yousif Hagan MD Primary Care Provider Active Dr. Jose England MD Other Provider Active Krissy Galvan CNM Attending Provider, Referring Prov ider Active Control Officer Relationship Specialty Start Date End Date Yousif Hagan MD PCP - General Internal Medicine 12/26/18 Team Status: Inactive Member Role Status Dates Dr. Yousif Hagan MD Primary Care P rorichardder, Attending Provider, Referring Provider Active Team Status: Inactive Member Role Status Dates Dr. Yousif Hagan MD Primary Care Provider, Refer ring Provider Active Dr. Fredy Pena MD Attending Provider Active Team Status: Active Member Role Status Dates Dr. Yousif Hagan MD Primary Care Provider Active Dr. Fredy Pena MD Attending Provider, Referring Pro vider Active Team Status: Active Member Role Status Dates Dr. Yousif Hagan MD Primary Care P monse, Attending Provider, Referring Provider Active Team Status: Inactive Member Role Status Dates Dr. Yousif Hagan MD Primary Care Provider Active Dr. Fredy Pena MD Attending Provider, Referring Pro vider Active Team Status: Inactive Member Role Status Dates Dr. Yousif Hagan MD Primary Care Provider Active Machelle Weems CNM Attending Provider, Referring Pr ovider Active Control Officer Relationship Specialty Start Date End Date Yousif Hagan MD PCP - General Internal Medicine 12/26/18 Control Officer Relationship Specialty Start Date End Date Yousif Hagan MD PCP - General Internal Medicine 12/26/18 Control Officer Relationship Specialty Start Date End Date Yousif Hagan MD PCP - General Internal Medicine 12/26/18 Control Officer Relationship Specialty Start Date End Date Yousif Hagan MD PCP - General Internal Medicine 12/26/18 Team Status: Inactive Member Role Status Dates Dr. Yousif Hagan MD Primary Care Provider Active Machelle Weems CNM Admit Provider, Attending Provid er Active Team Status: Inactive Member Role Status Dates Dr. Yousif Hagan MD Primary Care Provider Active Dr. Sofy Bradshaw DO Attending Provider, Referring Pr ovider Active Control Officer Relationship Specialty Start Date End Date Yousif Hagan MD PCP - General Internal Medicine 12/26/18 Control Officer Relationship Specialty Start Date End Date Yousif Hagan MD PCP - General Internal Medicine 12/26/18 Control Officer Relationship Specialty Start Date End Date Yousif Hagan MD PCP - General Internal Medicine 12/26/18 Control Officer Relationship Specialty Start Date End Date Yousif Hagan MD PCP - General Internal Medicine 12/26/18 Control Officer Relationship Specialty Start Date End Date Yousif Hagan MD PCP - General Internal Medicine 12/26/18 Control Officer Relationship Specialty Start Date End Date Yousif Hagan MD PCP - General Internal Medicine 12/26/18 Control Officer Relationship Specialty Start Date End Date Yousif Hagan MD PCP - General Internal Medicine 12/26/18 Control Officer Relationship Specialty Start Date End Date Yousif Hagan MD PCP - General Internal Medicine 12/26/18 Control Officer Relationship Specialty Start Date End Date Yousif Hagan MD PCP - General Internal Medicine 12/26/18 Control Officer Relationship Specialty Start Date End Date Yousif Hagan MD PCP - General Internal Medicine 12/26/18 Control Officer Relationship Specialty Start Date End Date Yousif Hagan MD PCP - General Internal Medicine 12/26/18 Control Officer Relationship Specialty Start Date End Date Chago Martinez MD [address] [place] [address] PCP - General Family Medicine 05/05/24 Podlogar, Caryn, ONLINE RETAILER.GROUND WATER TECHNICIAN [address] [place] [address] Family Medicine 05/05/24 Control Officer Relationship Specialty Start Date End Date Yousif Hagan MD PCP - General Internal Medicine 12/26/18 Control Officer Relationship Specialty Start Date End Date Chago Martinez MD [address] [place] [address] PCP - General Family Medicine 05/05/24 Podlogar, Caryn, ONLINE RETAILER.GROUND WATER TECHNICIAN [address] [facility] [place] [address] Family Medicine 05/05/24 Control Officer Relationship Specialty Start Date End Date Chago Martinez MD [address] [facility] [place] [address] PCP - General Family Medicine 05/05/24 Podlogar, Caryn, ONLINE RETAILER.GROUND WATER TECHNICIAN [address] [place] [address] Family Medicine 05/05/24 Control Officer Relationship Specialty Start Date End Date Chago Martinez MD [address] [place] [address] PCP - General Family Medicine 05/05/24 Podlogar, Caryn, ONLINE RETAILER.GROUND WATER TECHNICIAN [address] [facility] [address] Family Medicine 05/05/24 Podlogar, Caryn, ONLINE RETAILER.GROUND WATER TECHNICIAN [address] [place] [address] System Support Specialist Family Medicine 06/28/24 Control Officer Relationship Specialty Start Date End Date Chago Martinez MD [address] [place] [address] PCP - General Family Medicine 05/05/24 Podlogar, Caryn, ONLINE RETAILER.GROUND WATER TECHNICIAN [address] [facility] [place] [address] Family Medicine 05/05/24 Podlogar, Caryn, ONLINE RETAILER.GROUND WATER TECHNICIAN [address] [place] [address] System Support Specialist Family Medicine 06/28/24 Control Officer Relationship Specialty Start Date End Date Chago Martinez MD [address] [facility] [place] [address] PCP - General Family Medicine 05/05/24 Podlogar, Caryn, ONLINE RETAILER.GROUND WATER TECHNICIAN [address] [place] [address] Family Medicine 05/05/24 Podlogar, Caryn, ONLINE RETAILER.GROUND WATER TECHNICIAN [address] [place] [address] System Support Specialist Family Medicine 06/28/24 Control Officer Relationship Specialty Start Date End Date Chago Martinez MD [address] [place] [address] PCP - General Family Medicine 05/05/24 Podlogar, Caryn, ONLINE RETAILER.GROUND WATER TECHNICIAN [address] [place] [address] Family Medicine 05/05/24 Podlogar, Caryn, ONLINE RETAILER.GROUND WATER TECHNICIAN [address] [place] [address] [facility] Control Officer Relationship Specialty Start Date End Date Chago Martinez MD [address] [place] [address] PCP - General Family Medicine 05/05/24 Podlogar, Caryn, ONLINE RETAILER.GROUND WATER TECHNICIAN [address] [place] [address] Family Medicine 05/05/24 Podlogar, Caryn, ONLINE RETAILER.GROUND WATER TECHNICIAN [address] [place] [address] System Support Specialist Family Medicine 06/28/24 Control Officer Relationship Specialty Start Date End Date Chago Martinez MD [address] [place] [address] PCP - General Family Medicine 05/05/24 Podlogar, Caryn, ONLINE RETAILER.GROUND WATER TECHNICIAN [address] [facility] [place] [address] Family Medicine 05/05/24 Podlogar, Caryn, ONLINE RETAILER.GROUND WATER TECHNICIAN [address] [facility] [place] [address] System Support Specialist Family [facility] 06/28/24 Control Officer Relationship Specialty Start Date End Date Chago Martinez MD [address] [place] [address] PCP - General Family Medicine 05/05/24 Podlogar, Caryn ONLINE RETAILER.GROUND WATER TECHNICIAN [address] [place] [address] Family Medicine 05/05/24 Podlogar, Caryn, ONLINE RETAILER.GROUND WATER TECHNICIAN [address] [place] [address] System Support Specialist Family Medicine 06/28/24 Unique Brar ONLINE RETAILER.GROUND WATER TECHNICIAN [address] [facility] [place] [address] System Support Specialist [facility] 10/03/24 Control Officer Relationship Specialty Start Date End Date Chago Martinez MD [address] [facility] [place] [address] PCP - General Family Medicine 05/05/24 Podlogar, Caryn, ONLINE RETAILER.GROUND WATER TECHNICIAN [address] [place] [address] Family Medicine 05/05/24 Podlogar, Caryn, ONLINE RETAILER.GROUND WATER TECHNICIAN [address] [place] [address] System Support Specialist Family [facility] 06/28/24 Unique Brar APRN.GROUND WATER TECHNICIAN [address] [facility] [place] [address] [facility]24 Control Officer Relationship Specialty Start Date End Date Chago Martinez MD [address] [place] [address] PCP - General Family Medicine 05/05/24 Podlogar, Caryn, ONLINE RETAILER.GROUND WATER TECHNICIAN [address] [place] [address] Family Medicine 05/05/24 Podlogar, Caryn, ONLINE RETAILER.GROUND WATER TECHNICIAN [address] [place] [address] [facility]24 Unique Brar ONLINE RETAILER.GROUND WATER TECHNICIAN [address] [place] [address] [facility] 10/[facility]/24 Control Officer Relationship Specialty Start Date End Date Chago Martinez MD [address] [place] [address] PCP - General Family Medicine 05/05/24 Podlogar, Caryn, ONLINE RETAILER.GROUND WATER TECHNICIAN [address] [place] [address] Family Medicine 05/05/24 Podlogar, Caryn, ONLINE RETAILER.GROUND WATER TECHNICIAN [address] [place] [address] [facility] 06/28/24 Unique Brar ONLINE RETAILER.GROUND WATER TECHNICIAN [address] [place], [place] [address] [facility] 10/03/24 10/12/24 Unique Brar, ONLINE RETAILER.GROUND WATER TECHNICIAN [address] [place], [place] [address] [facility] 10/13/24 Control Officer Relationship Specialty Start Date End Date Chago Martinez MD [address] [place], [place] [address] PCP - General Family Medicine 05/05/24 Podlogar, BALJEET RubinN.GROUND WATER TECHNICIAN [address] [place], [place] [address] Family Medicine 05/05/24 Podlogar, Caryn ONLINE RETAILER.GROUND WATER TECHNICIAN [address] [place], [place] [address] [facility] 06/28/24 Unique Brar, ONLINE RETAILER.GROUND WATER TECHNICIAN [address] [place], [place] [address] [facility] 10/13/24 Team Status: Inactive Member Role Status Dates Dr. Yousif Hagan MD Primary Care Provider Active Start: August 28, 2024 End: August 28, 2024 Dr. Yousif Hagan MD Referring Provider Active Start: August 28, 2024 End: August 28, 2024 Dr. Enid Aquino DC Attending Provider Active S tart: August 28, 2024 End: August 28, 2024 Team Status: Inactive Member Role Status Dates Dr. Yousif Hagan MD Primary Care Provider Active Start: September 29, 2024 End: September 29, 2024 Dr. Yousif Hagan MD Referring Provider Active Start: September 29, 2024 End: September 29, 2024 Dr. Enid Aquino DC Attending Provider Active S tart: September 29, 2024 End: September 29, 2024 Team Status: Inactive Member Role Status Dates Dr. Yousif Hagan MD Primary Care Provider Active Start: October 27, 2024 End: October 27, 2024 Dr. Yousif Hagan MD Referring Provider Active Start: October 27, 2024 End: October 27, 2024 Dr. Enid Aquino DC Attending Provider Active S tart: October 27, 2024 End: October 27, 2024 Team Status: Inactive Member Role Status Dates Dr. Yousif Hagan MD Primary Care Provider Active Start: November 24, 2024 End: November 24, 2024 Dr. Yousif Hagan MD Referring Provider Active Start: November 24, 2024 End: November 24, 2024 Dr. Enid Aquino DC Attending Provider Active S tart: November 24, 2024 End: November 24, 2024 Team Status: Inactive Member Role Status Dates Dr. Yousif Hagan MD Primary Care Provider Active Start: December 22, 2024 End: December 22, 2024 Dr. Yousif Hagan MD Referring Provider Active Start: December 22, 2024 End: December 22, 2024 Dr. Enid Aquino DC Attending Provider Active S tart: December 22, 2024 End: December 22, 2024 Control Officer Relationship Specialty Start Date End Date Chago Martinez MD [address] [place] [address] PCP - General Family Medicine 05/05/24 Podlogar, Caryn, ONLINE RETAILER.GROUND WATER TECHNICIAN [address] [place], [place] [address] Family Medicine 05/05/24 Podlogar, Caryn, ONLINE RETAILER.GROUND WATER TECHNICIAN [address] [place], [place] [address] [facility] 06/28/24 Team Status: Active Member Role Status Dates Dr. Eran Martinez MD Primary Care Provider Acti ve Team Status: Inactive Member Role Status Dates Dr. Yousif Hagan MD Referring Provider Active Start: December 29, 2024 End: December 29, 2024 Dr. Enid Aquino DC Attending Provider Active S tart: December 29, 2024 End: December 29, 2024 Dr. Eran Martinez MD Primary Care Provider Acti ve Start: December 29, 2024 End: December 29, 2024 Team Status: Inactive Member Role Status Dates Dr. Yousif Hagan MD Referring Provider Active Start: January 05, 2025 End: January 05, 2025 Dr. Enid Aquino DC Attending Provider Active S tart: January 05, 2025 End: January 05, 2025 Dr. Eran Martinez MD Primary Care Provider Acti ve Start: January 05, 2025 End: January 05, 2025 Control Officer Relationship Specialty Start Date End Date Chago Martinez MD [address] [facility], [place] [id number] PCP - General Family Medicine 05/05/24 PodlogarCaryn APRN.GROUND WATER TECHNICIAN [address] [place] [address] Family Medicine 05/05/24 PodturnerarCaryn APRN.GROUND WATER TECHNICIAN [address] [place] [address] [facility] 06/28/24 Unique Brar APRN.GROUND WATER TECHNICIAN [address] [facility] [place] [address] [facility] 01/01/25 Team Status: Inactive Member Role Status Dates Dr. Yousif Hagan MD Referring Provider Active Start: January 12, 2025 End: January 12, 2025 Dr. Enid Aquino , [place] Attending Provider Active S tart: January 12, 2025 End: January 12, 2025 Dr. Eran Martinez MD Primary Care Provider Acti ve Start: January 12, 2025 End: January 12, 2025 Control Officer Relationship Specialty Start Date End Date Chago Martinez MD [address] [place] [address] PCP - General Family Medicine 05/05/24 Podlogar, Caryn, ONLINE RETAILER.GROUND WATER TECHNICIAN [address] [facility], [place] [address] [phone] Family Medicine 05/05/24 Podlogar, Caryn ONLINE RETAILER.GROUND WATER TECHNICIAN [address] [facility], [place] [id number] System Support Specialist Family Medicine 06/28/24 Unique Brar APRN.GROUND WATER TECHNICIAN [address] [facility] [place] [address] System Support Specialist Family Medicine 10/13/24 12/07/24 Unique Brar APRN.GROUND WATER TECHNICIAN [address] [facility], [place] [address] [phone] System Support Specialist Family Medicine 01/01/25 Control Officer Relationship Specialty Start Date End Date Chago Martinez MD [address] [place] [address] PCP - General Family Medicine 05/05/24 Podlogar, Caryn, ONLINE RETAILER.GROUND WATER TECHNICIAN [address] [place] [address] Family Medicine 05/05/24 Podlogar, Caryn, ONLINE RETAILER.GROUND WATER TECHNICIAN [address] [place] [address] [facility] 06/28/24 Unique Brar APRN.GROUND WATER TECHNICIAN [address] [place] [address] [facility] 01/01/25 Team Status: Active Member Role/Relationship Status Dates Dr. Eran Martinez MD Primary Care Provider Acti ve Team Status: Inactive Member Role/Relationship Status Dates Dr. Yousif Hagan MD Primary Care Provider Active Start: September 29, 2024 End: September 29, 2024 Dr. Yousif Hagan MD Referring Provider Active Start: September 29, 2024 End: September 29, 2024 Dr. Enid Aquino DC Attending Provider Active S tart: September 29, 2024 End: September 29, 2024 Team Status: Inactive Member Role/Relationship Status Dates Dr. Yousif Hagan MD Primary Care Provider Active Start: October 27, 2024 End: October 27, 2024 Dr. Yousif Hagan MD Referring Provider Active Start: October 27, 2024 End: October 27, 2024 Dr. Enid Aquino DC Attending Provider Active S tart: October 27, 2024 End: October 27, 2024 Team Status: Inactive Member Role/Relationship Status Dates Dr. Yousif Hagan MD Primary Care Provider Active Start: November 24, 2024 End: November 24, 2024 Dr. Yousif Hagan MD Referring Provider Active Start: November 24, 2024 End: November 24, 2024 Dr. Enid Aquino DC Attending Provider Active S tart: November 24, 2024 End: November 24, 2024 Team Status: Inactive Member Role/Relationship Status Dates Dr. Yousif Hagan MD Primary Care Provider Active Start: December 22, 2024 End: December 22, 2024 Dr. Yousif Hagan MD Referring Provider Active Start: December 22, 2024 End: December 22, 2024 Dr. Enid Aquino DC Attending Provider Active S tart: December 22, 2024 End: December 22, 2024 Team Status: Inactive Member Role/Relationship Status Dates Dr. Yousif Hagan MD Referring Provider Active Start: December 29, 2024 End: December 29, 2024 Dr. Enid Aquino DC Attending Provider Active S tart: December 29, 2024 End: December 29, 2024 Dr. Eran Martinez MD Primary Care Provider Acti ve Start: December 29, 2024 End: December 29, 2024 Team Status: Inactive Member Role/Relationship Status Dates Dr. Yousif Hagan MD Referring Provider Active Start: January 05, 2025 End: January 05, 2025 Dr. Enid Aquino DC Attending Provider Active S tart: January 05, 2025 End: January 05, 2025 Dr. Eran Martinez MD Primary Care Provider Acti ve Start: January 05, 2025 End: January 05, 2025 Team Status: Inactive Member Role/Relationship Status Dates Dr. Yousif Hagan MD Referring Provider Active Start: January 12, 2025 End: January 12, 2025 Dr. Enid Aquino DC Attending Provider Active S tart: January 12, 2025 End: January 12, 2025 Dr. Eran Martinez MD Primary Care Provider Acti ve Start: January 12, 2025 End: January 12, 2025 Team Status: Inactive Member Role/Relationship Status Dates Dr. Eran Martinez MD Primary Care Provider Acti ve Start: January 19, 2025 End: January 19, 2025 Dr. Eran Martinez MD Referring Provider Active Start: January 19, 2025 End: January 19, 2025 Dr. Enid Aquino DC Attending Provider Active S tart: January 19, 2025 End: January 19, 2025 Control Officer Relationship Specialty Start Date End Date Chago Martinez MD [address] [place] [address] PCP - General Family Medicine 05/05/24 AlicialogarCaryn APRN.CNP [address] [place] [address] Family Medicine 05/05/24 PodlogarCaryn APRN.GROUND WATER TECHNICIAN [address] [place] [address] [facility] 06/28/24 Unique Brar APRN.GROUND WATER TECHNICIAN [address] [place] [address] [facility] 01/01/25 Control Officer Relationship Specialty Start Date End Date Chago Martinez MD [address] [place] [address] PCP - General Family Medicine 05/05/24 Podlogar, BALJEET RubinN.GROUND WATER TECHNICIAN [address] [place] [address] Family Medicine 05/05/24 PodlogarCaryn, ONLINE RETAILER.GROUND WATER TECHNICIAN [address] [place] [address] [facility] 06/28/24 Unique Brar, ONLINE RETAILER.GROUND WATER TECHNICIAN [address] [place] [address] [facility] 01/01/25 Team Status: Inactive Member Role/Relationship Status Dates Dr. Eran Martinez MD Primary Care Provider Acti ve Start: 2025 End: 2025 Dr. Eran Martinez MD Referring Provider Active Start: 2025 End: 2025 Dr. Enid Aquino DC Attending Provider Active S tart: 2025 End: 2025 Control Officer Relationship Specialty Start Date End Date Chago Martinez MD [address] [place] [address] PCP - General Family Medicine 05/05/24 PodlogarCaryn APRN.GROUND WATER TECHNICIAN [address] [place] [address] Family Medicine 05/05/24 PodlogarCaryn APRN.GROUND WATER TECHNICIAN [address] [place] [address] [facility] Unique Brar APRN.GROUND WATER TECHNICIAN [address] [place] [address] [facility] 01/01/25 Control Officer Relationship Specialty Start Date End Date Chago Martinez MD [address] [place] [address] PCP - General Family Medicine 05/05/24 PodlogarCaryn APRN.GROUND WATER TECHNICIAN [address] [place] [address] Family Medicine 05/05/24 PodlogarCaryn APRN.GROUND WATER TECHNICIAN [address] [place] [address] [facility] 06/28/24 Unique Brar APRN.GROUND WATER TECHNICIAN [address] [place] [address] [facility] 01/01/25 FOR RECORDS PERTAINING TO PATIENTS WHO ARE [...] BE BASED ON THE PRIMARY CLINICAL RECORDS. [facility] [facility]. provides no warranty or guarantee of the accuracy or completeness of information in this document.
[2025-01-30 20:55] LABS: Hematocrit 36.6 % (37-47); Hemoglobin 11.8 g/dL (12.0-15.0); Immature Granulocytes Count 0.100 X10^3/uL (0.0-0.0); Mean Corp Hgb Conc 32.2 g/dL (32-36); Mean Corpuscular Volume 89.3 fL (81-99); Mean Platelet Vol. 9.5 fl (6.2-12.0); NRBC Flagged by Analyzer 0 % (0-5); Platelet Count 261 K/mm3 (150-450); RBC Distribution Width CV 15.2 % (11.6-14.6); RBC Distribution Width SD 49.1 fl (35.1-43.9); Red Blood Count 4.10 M/mm3 (4.2-5.4); White Blood Count 14.8 K/mm3 (4.4-11.0)
[2025-01-30 21:35] LABS: Syphilis Antibodies Nonreactive (Nonreactive)
[2025-01-30] MEDS: LACTATED RINGERS 500 ML 999 ML IV (21:58)
[2025-01-30] MEDS: Lactated Ringers 1,000 ML 50 ML IV (22:00)
--- NOTE | 2025-01-30 22:12 | PCM.HP.OB ---
HPI - General General Date of Admission: 01/30/25 HPI Narrative MELANY MACE, is a 30 F who presents at 39w5d with BELTRAN 02/01/25 in active labor. Maternal Data Information BELTRAN Calculator Estimated Delivery Date Method Current WG Current Estimate 02/01/25 Manual 39w 5d PFSH PFS Medical History (Updated 01/30/25 @ 22:18 by Krissy Galvan CNM) depression Depression Anxiety Thyroid disorder Elevated liver enzymes Laceration, obstetrical, second degree Care and examination of lactating mother (spontaneous vaginal delivery) Encounter for elective induction of labor 39 weeks gestation of Shortness of breath Palpitations Chronic neck pain Preventative health care Menstrual irregularity Other vitreous opacities, bilateral Urinary frequency Seasonal allergies Back pain Persistent headaches Home Medications ?Medication ?Instructions ?Recorded ?Last Taken ?Type mv-mn no.97-folic 180 mcg-dha 25 1 tab PO DAILY pregnan 04/19/22 01/30/25 History mg-herb no.293 25 mg chewable tablet (Alive Daily Support ) loratadine 10 mg tablet (Allergy 10 mg PO DAILY 04/20/23 01/30/25 History Relief (loratadine)) sertraline 25 mg tablet 25 mg PO QDAY 12/24/23 01/30/25 History pantoprazole 20 mg tablet,delayed 20 mg PO DAILY heartburn 01/30/25 01/30/25 History release Allergy/AdvReac Type Severity Reaction Status Date / Time mold Allergy unknown Verified 01/26/25 15:25 ragweed pollen Allergy unknown Verified 01/26/25 15:25 Family History Grandmother Cancer lung CVA (cerebral vascular accident) Grandfather Cancer pancreatic Father Heart disease Hypertension Hyperlipidemia Grandfather Heart disease CVA (cerebral vascular accident) Surgical History H/O wisdom tooth extraction Social History Smoking Status: Never smoker alcohol intake: never substance use type: does not use caffeine: Yes (Occasionally) Type: coffee what type of physical activity do you participate in: walking frequency: 3-4 times per week History Elective abortions Hx Para 1 Spontaneous abortions Hx # Term Pregnancies Ectopic pregnancies Hx # Pregnancies Multiple births # of living children NST FHR Rate Baby A Baseline: 145 Variability:: Moderate Accelerations:: 15 x 15 Decelerations:: Variable FHR Category:: Category II Uterine Activity:: Every 2-3 minutes, strong ROS Constitutional Constitutional: Reports systems reviewed and no addt'l complaints, except as documented; Denies headache(s) Eyes Eyes: Denies acute decrease in peripheral vision, blurry vision or change in vision ENT HEENT: Reports systems reviewed and no addt'l complaints, except as documented Cardiovascular Cardiovascular: Denies chest pain or dizziness Respiratory/Chest Respiratory/Chest: Denies cough, dyspnea, dyspnea on exertion, shortness of breath at rest or shortness of breath with exertion Gastrointestinal Gastrointestinal: Denies abdominal pain, diarrhea, nausea or vomiting Genitourinary Genitourinary: Denies abdominal discomfort Musculoskeletal Musculoskeletal: Denies limited range of motion Integumentary Integumentary: Reports systems reviewed and no addt'l complaints, except as documented Neurologic Neurologic: Reports systems reviewed and no addt'l complaints, except as documented Psychiatric Psychiatric: Reports systems reviewed and no addt'l complaints, except as documented Endocrine Endocrinology: Reports systems reviewed and no addt'l complaints, except as documented Hematologic/Lymphatic Hematologic/Lymphatic: Reports systems reviewed and no addt'l complaints, except as documented Allergic/Immunologic Allergic/Immunologic: Reports systems reviewed and no addt'l complaints, except as documented Vital Signs Vital Signs Vital Signs: 01/30/25 19:39 01/30/25 19:39 01/30/25 19:40 Pulse Rate 100 Blood Pressure 116/66 BP Systolic 116 BP Diastolic 66 Pulse Ox 98 01/30/25 19:40 Pulse Rate 90 Blood Pressure BP Systolic BP Diastolic Pulse Ox Weight Weight: 169 lb 2 oz Body Mass Index (BMI) 29.0 Physical Exam Const alert and oriented x3 General Appearance: cooperative Orientation / Consciousness: awake, oriented to person, oriented to place and oriented to time Exam Limitations: no limitations HEENT normocephalic Head and Scalp: normal to inspection, normocephalic and atraumatic Face and Sinus: normal facial exam Eyes General Eye: normal appearance of both eyes Neck full ROM Chest Chest: symmetrical chest wall rise Resp normal respiratory effort and normal air movement Auscultation: clear to auscultation bilaterally Cardio regular rate, regular rhythm, S1 normal heart sound, S2 normal heart sound, no murmurs, no rub, no gallops and no clicks GI normal to inspection, nondistended, normoactive bowel sounds and non-tender appearance of the vagina normal Bladder / Kidney Exam: no CVA tenderness Manual OB Exam: estimated gestational size appropriate, presentation cephalic, dilated 4.5, effaced 70, station -1 and other AROM large amount of clear fluid Back/Spine normal ROM Extremity normal to inspection and full ROM Skin no rashes or lesions noted Neuro oriented x3, CN's II-XII intact bilaterally and moves all extremities Sensorium / Orientation: awake, alert and oriented to person Motor Exam: clonus absent Deep Tendon Reflexes: Rt Patellar (L4): 2+ and Lt Patellar (L4): 2+ Labs Labs Labs: Blood Type A POSITIVE Antibody Screen NEGATIVE Hct 36.6 % (37-47) L Hgb 11.8 g/dL (12.0-15.0) L Obstetrics Ultrasound Syphilis Total Ab Nonreactive (Nonreactive) Rubella IgG Antibody Reactive (Nonreactive) Hep Bs Antigen Non-Reactive (Nonreactive) Hepatitis C Antibody Non-Reactive (Nonreactive) Chlamydia DNA (BARRY) Negative (Negative) N.gonorrhoeae DNA (BARRY) Negative (Negative) HIV 1&2 Antibody Non-Reactive (Nonreactive) Glucose 1 Hr 50 gm 83 mg/dL (70-140) Rhogam given: No Miscellaneous Test GBS negative 1hr GCT negative Rubella immune HBsAG negative HepC negative HIV negative A positive RPR negative Assessment & Plan (1) Active labor at term: (2) History of depression: (3) 39 weeks gestation of : (4) History of asthma: (5) Depression affecting in first trimester, antepartum: (6) Heartburn during : PLAN: Plan 1) Admit to labor and delivery 2) Routine labs 3) Continuous EFM 4) Pain management upon request 5) Dr. Tomás valladares physician and notified of patient status, above assessment, and plan.
[2025-01-30] MEDS: Oxytocin 15 Units/NS 250ml 15 UNITS/250 ML IV.SOLN 334 UNITS IV (23:20)
--- NOTE | 2025-01-30 23:34 | EX.PCM.OBVAG ---
Assessment & Plan (1) Vaginal delivery: (2) First degree perineal laceration: (3) Lactating mother: Maternal Data Information BELTRAN Calculator Estimated Delivery Date Method Current WG Current Estimate 02/01/25 Manual 39w 5d Vaginal Delivery Maternal Presentation Maternal Presentation: Active Labor Vaginal Delivery Information Procedure Performed: Spontaneous Vaginal Delivery Surgeon/Practitioner: Krissy Galvan Date of Procedure: 01/30/25 Pre-Procedure Diagnosis: Active labor at term Post-Procedure Diagnosis: Type of anesthesia: None Estimated Blood Loss: 200ml Time of Delivery: 23:18 Findings Description of procedure: Progressed to complete with urge to push. Unmedicated. of viable female infant over first degree perineal laceration . APGARS 9,9 respectively. Infant head delivered with body immediately forthcoming. Placed on maternal abdomen, strong cry. Mouth and nares suctioned for secretions. Pitocin started for active 3rd stage management. Cord doubly clamped and cut by FOB after pulsations ceased, delayed cord clamping. Placenta delivered intact via diallo, 3 vessel cord intact. Perineum inspected and revealed first degree perineal laceration. Repaired with 3.0 vicryl rapide. Fundus firm and hemostasis achieved. EBL 200ml. Vaginal sweep completed by me, sponge and instrument correct. Mom and baby stable, planning to breastfeed. Family bonding well. notified of delivery. Presentation: Vertex and KARAN Amniotic Membrane Rupture Type: Artificial Amniotic Fluid Description: Clear Placental Delivery Description: Spontaneous Placenta Disposition: [facility] Specimen collected: No Cord Vessel Description: 3 Vessels Cord Entanglement: None Infant A Gender: Female (1 minute): 9 (5 minute): 9 Delayed Cord Clamping: Yes Product Development Actuary telegraphic typewriter mechanic: No Post Vaginal Deli Medications given after delivery: IV Pitocin Episiotomy Description: None Laceration: Perineal Extension/lac and 1st degree Complication Complications: No
[2025-01-30] MEDS: Oxytocin 15 Units/NS 250ml 15 UNITS/250 ML IV.SOLN 83 UNITS IV (23:58)
[2025-01-31] VITALS (14 sets, daily range): BP systolic 105–117; BP diastolic 58–68; PULSE 72–107; RESP 16; TEMP 36.8–37.6; O2SAT 97–99
[2025-01-31 07:04] LABS: Hematocrit 36.6 % (37-47); Hemoglobin 11.9 g/dL (12.0-15.0); Immature Granulocytes Count 0.100 X10^3/uL (0.0-0.0); Mean Corp Hgb Conc 32.5 g/dL (32-36); Mean Corpuscular Volume 88.6 fL (81-99); Mean Platelet Vol. 9.5 fl (6.2-12.0); NRBC Flagged by Analyzer 0 % (0-5); Platelet Count 238 K/mm3 (150-450); RBC Distribution Width CV 14.8 % (11.6-14.6); RBC Distribution Width SD 48.1 fl (35.1-43.9); Red Blood Count 4.13 M/mm3 (4.2-5.4); White Blood Count 18.6 K/mm3 (4.4-11.0)
--- NOTE | 2025-01-31 10:52 | PCM.PN.OB ---
Subjective Subjective Doing well per patient and nursing staff. Ambulating and taking PO without difficulty. Voiding and passing flatus. Pain controlled. , services for assistance. Denies headache, visual changes, chest pain, shortness of breath, leg pain or increased bleeding. Lochia normal. Objective Data Objective Data Vital Signs: Vital Signs Temp Pulse Resp BP Pulse Ox O2 Del Method 98.8 F 82 16 109/58 L 98 Room Air 01/31/25 08:37 01/31/25 08:37 01/31/25 08:37 01/31/25 08:37 01/31/25 08:37 01/31/25 08:37 Oxygen Delivery Method Room Air Weight: 169 lb 2 oz Body Mass Index (BMI) 29.0 Intake & Output: Intake and Output for Last 24 Hours 01/29/25 01/30/25 01/31/25 23:59 23:59 23:59 Intake Total 584.17 / 584.17 500 / 500 Output Total 200 / 200 400 / 400 Balance 384.17 / 384.17 100 / 100 Lab / Micro Data 01/31/25 06:55 Labs: Laboratory Results - last 24 hr 01/30/25 20:30: WBC 14.8 H, RBC 4.10 L, Hgb 11.8 L, Hct 36.6 L, MCV 89.3, MCH 28.8, MCHC 32.2, RDW Std Deviation 49.1 H, RDW Coeff of Js 15.2 H, Plt Count 261, MPV 9.5, Immature Gran % (Auto) 0.700, Neut % (Auto) 71.1 H, Lymph % (Auto) 20.6, Baldwin % (Auto) 6.3, Eos % (Auto) 1.0, Baso % (Auto) 0.3, Absolute Neuts (auto) 10.6 H, Absolute Lymphs (auto) 3.05, Nucleated RBC % 0, Syphilis Total Ab Nonreactive, Blood Type A POSITIVE, Antibody Screen NEGATIVE 01/31/25 06:55: WBC 18.6 H, RBC 4.13 L, Hgb 11.9 L, Hct 36.6 L, MCV 88.6, MCH 28.8, MCHC 32.5, RDW Std Deviation 48.1 H, RDW Coeff of Js 14.8 H, Plt Count 238, MPV 9.5, Immature Gran % (Auto) 0.500, Neut % (Auto) 78.8 H, Lymph % (Auto) 13.4 L, Baldwin % (Auto) 6.8, Eos % (Auto) 0.2, Baso % (Auto) 0.3, Absolute Neuts (auto) 14.7 H, Absolute Lymphs (auto) 2.49, Nucleated RBC % 0 ROS Constitutional Constitutional: Reports systems reviewed and no addt'l complaints, except as documented; Denies headache(s) Eyes Eyes: Denies acute decrease in peripheral vision, blurry vision or change in vision ENT HEENT: Reports systems reviewed and no addt'l complaints, except as documented Cardiovascular Cardiovascular: Denies chest pain or dizziness Respiratory/Chest Respiratory/Chest: Denies cough, dyspnea, dyspnea on exertion, shortness of breath at rest or shortness of breath with exertion Gastrointestinal Gastrointestinal: Denies abdominal pain, diarrhea, nausea or vomiting Genitourinary Genitourinary: Denies abdominal discomfort Musculoskeletal Musculoskeletal: Denies limited range of motion Integumentary Integumentary: Reports systems reviewed and no addt'l complaints, except as documented Neurologic Neurologic: Reports systems reviewed and no addt'l complaints, except as documented Psychiatric Psychiatric: Reports systems reviewed and no addt'l complaints, except as documented Endocrine Endocrinology: Reports systems reviewed and no addt'l complaints, except as documented Hematologic/Lymphatic Hematologic/Lymphatic: Reports systems reviewed and no addt'l complaints, except as documented Allergic/Immunologic Allergic/Immunologic: Reports systems reviewed and no addt'l complaints, except as documented Physical Exam Const alert and oriented x3 General Appearance: cooperative Orientation / Consciousness: awake, oriented to person, oriented to place and oriented to time Exam Limitations: no limitations HEENT normocephalic Head and Scalp: normal to inspection, normocephalic and atraumatic Face and Sinus: normal facial exam Eyes General Eye: normal appearance of both eyes Neck full ROM Chest Chest: symmetrical chest wall rise Resp normal respiratory effort and normal air movement Auscultation: clear to auscultation bilaterally Cardio regular rate, regular rhythm, S1 normal heart sound, S2 normal heart sound, no murmurs, no rub, no gallops and no clicks GI normal to inspection, nondistended, normoactive bowel sounds and non-tender GI Narrative: Fundus firm 2 below U appearance of the vagina normal Narrative: Normal lochia rubra Bladder / Kidney Exam: no CVA tenderness Back/Spine normal ROM Extremity normal to inspection and full ROM Skin no rashes or lesions noted Neuro oriented x3, CN's II-XII intact bilaterally and moves all extremities Sensorium / Orientation: awake, alert and oriented to person Motor Exam: clonus absent Deep Tendon Reflexes: Rt Patellar (L4): 2+ and Lt Patellar (L4): 2+ Assessment & Plan (1) Lactating mother: (2) First degree perineal laceration: (3) Vaginal delivery: PLAN: Plan 1) Routine PPD#1 2) Vitals stable 3) I&O 4) Pain management 5) services PRN 6) Planning D/C home tomorrow
[2025-02-01 01:58] VITALS: BP 102/69; PULSE 78
[2025-02-01 02:26] VITALS: BP 102/69; PULSE 78; RESP 16; TEMP 37; O2SAT 97
[2025-02-01 08:51] VITALS: BP 120/59; PULSE 90
[2025-02-01 09:12] VITALS: BP 120/59; PULSE 90; RESP 16; TEMP 36.7; O2SAT 98
--- NOTE | 2025-02-01 09:34 | PCM.PN.OB ---
Subjective Subjective Doing well per patient and nursing staff. Ambulating and taking PO without difficulty. Voiding and passing flatus. Pain controlled. , services for assistance. Denies headache, visual changes, chest pain, shortness of breath, leg pain or increased bleeding. Lochia normal. Objective Data Objective Data Vital Signs: Vital Signs Temp Pulse Resp BP Pulse Ox O2 Del Method 98.1 F 90 16 120/59 L 98 Room Air 02/01/25 09:12 02/01/25 09:12 02/01/25 09:12 02/01/25 09:12 02/01/25 09:12 02/01/25 09:12 Oxygen Delivery Method Room Air Weight: 169 lb 2 oz Body Mass Index (BMI) 29.0 Intake & Output: Intake and Output for Last 24 Hours 01/30/25 01/31/25 02/01/25 23:59 23:59 23:59 Intake Total 584.17 / 584.17 500 / 500 Output Total 200 / 200 400 / 400 Balance 384.17 / 384.17 100 / 100 Lab / Micro Data 01/31/25 06:55 ROS Constitutional Constitutional: Reports systems reviewed and no addt'l complaints, except as documented; Denies headache(s) Eyes Eyes: Denies acute decrease in peripheral vision, blurry vision or change in vision ENT HEENT: Reports systems reviewed and no addt'l complaints, except as documented Cardiovascular Cardiovascular: Denies chest pain or dizziness Respiratory/Chest Respiratory/Chest: Denies cough, dyspnea, dyspnea on exertion, shortness of breath at rest or shortness of breath with exertion Gastrointestinal Gastrointestinal: Denies abdominal pain, diarrhea, nausea or vomiting Genitourinary Genitourinary: Denies abdominal discomfort Musculoskeletal Musculoskeletal: Denies limited range of motion Integumentary Integumentary: Reports systems reviewed and no addt'l complaints, except as documented Neurologic Neurologic: Reports systems reviewed and no addt'l complaints, except as documented Psychiatric Psychiatric: Reports systems reviewed and no addt'l complaints, except as documented Endocrine Endocrinology: Reports systems reviewed and no addt'l complaints, except as documented Hematologic/Lymphatic Hematologic/Lymphatic: Reports systems reviewed and no addt'l complaints, except as documented Allergic/Immunologic Allergic/Immunologic: Reports systems reviewed and no addt'l complaints, except as documented Physical Exam Const alert and oriented x3 General Appearance: cooperative Orientation / Consciousness: awake, oriented to person, oriented to place and oriented to time Exam Limitations: no limitations HEENT normocephalic Head and Scalp: normal to inspection, normocephalic and atraumatic Face and Sinus: normal facial exam Eyes General Eye: normal appearance of both eyes Neck full ROM Chest Chest: symmetrical chest wall rise Resp normal respiratory effort and normal air movement Auscultation: clear to auscultation bilaterally Cardio regular rate, regular rhythm, S1 normal heart sound, S2 normal heart sound, no murmurs, no rub, no gallops and no clicks GI normal to inspection, nondistended, normoactive bowel sounds and non-tender appearance of the vagina normal Bladder / Kidney Exam: no CVA tenderness Back/Spine normal ROM Extremity normal to inspection and full ROM Skin no rashes or lesions noted Neuro oriented x3, CN's II-XII intact bilaterally and moves all extremities Sensorium / Orientation: awake, alert and oriented to person Motor Exam: clonus absent Deep Tendon Reflexes: Rt Patellar (L4): 2+ and Lt Patellar (L4): 2+ Assessment & Plan (1) Lactating mother: (2) First degree perineal laceration: (3) Vaginal delivery: PLAN: Plan 1) Routine PPD#2 2) Vitals stable 3) I&O 4) Pain management 5) services PRN 6) D/C home
--- NOTE | 2025-02-01 09:36 | PCM.DC.SUM ---
Providers Date of Admission: 01/30/25 Primary Care Physician: Dr. Eran Martinez MD Reason For Visit: VAGINAL DELIVERY Diagnosis Discharge Diagnosis (1) Lactating mother: Status: Acute Code(s): Z39.1 - Encounter for care and examination of lactating mother (2) First degree perineal laceration: Status: Acute Code(s): O70.0 - First degree perineal laceration during delivery (3) Vaginal delivery: Status: Acute Code(s): O80 - Encounter for full-term uncomplicated delivery Plan 1) Routine PPD#2 2) Vitals stable 3) I&O 4) Pain management 5) services PRN 6) D/C home Medications at Discharge Home Medications sertraline 25 mg tablet 25 mg PO QDAY 12/24/23 acetaminophen 500 mg tablet 1,000 mg (2 x 500 mg) PO Q6H PRN PRN Pain 1-10 Or Fever #0 tabs 02/01/25 ibuprofen 600 mg tablet 600 mg PO Q6H PRN PRN Pain Score 1-10 #0 tabs 02/01/25 Weight / BMI Weight Weight: 169 lb 2 oz Body Mass Index (BMI) 29.0 ABG / Lab / Microbiology Data 01/31/25 06:55 D/C Instructions Discharge Activity: Return to Normal Activity, May Drive, May Shower and May Take a Tub Bath May resume sexual activity in: 6 weeks Weight Bearing Status: Full weight bearing Call your doctor if you observe: Fever of 101 or Higher, Inability to urinate, Using more than 1 pad per hour, Shortness of breath, Chest pain, Increased palpitations (irregular heartbeat), Calf discomfort and Uncontrolled pain DC O2, CPAP, BIPAP Needs Home O2 Discharge instructions: No Please Follow Up With: Krissy Galvan CNM When: 2 week virtual visit and 6 week visit Meaningful Use Info Meaningful Use Meaningful Use Diagnoses (Choose all that apply): None applicable Discharge Plan Admission Admit Date/Time: 01/30/25 20:05 Primary Reason for Your Visit: Vaginal Delivery Attending Provider: Krissy Galvan Primary Care Provider: Eran Martinez Discharge Orders/Prescriptions Prescriptions: New acetaminophen 500 mg Tablet 1,000 mg PO Q6H PRN PRN (Reason: Pain 1-10 Or Fever) Qty: 0 0RF ibuprofen 600 mg Tablet 600 mg PO Q6H PRN PRN (Reason: Pain Score 1-10) Qty: 0 0RF Continued sertraline 25 mg tablet 25 mg PO QDAY Discontinued Alive Daily Support 180 mcg-25 mg- 25 mg tablet,chewable 1 tab PO DAILY loratadine [Allergy Relief (loratadine)] 10 mg tablet 10 mg PO DAILY pantoprazole 20 mg tablet,delayed release (DR/EC) 20 mg PO DAILY Referrals / Follow Up: Eran Martinez MD [Primary Care Provider] - Disposition Disposition (needs filled in before D/C Order can be placed): Home, Self Care
--- NOTE | 2025-02-01 11:25 | CASEMGMT ---
Social Work Assessment Labor and Delivery Unit Patient Address: [address] [place] [address] [address], [place] [address] Phone number:[phone] Date of Referral: 01/31/25 Time of Referral: 13:20 Referred By: Krissy Galvan Date of Intervention: 02/01/25 Time of Intervention: 11:26 Reason for Referral: Mental Health, PPD and Anxiety History obtained from: Medical records, mother of baby (MOB) and father of baby (FOB).? Household composition: MOB, FOB ( Papi, age 34), their almost 2-year-old daughter, Travon and daughter Christian, born on 01/30/25. Patient's parent/guardian status: MOB and FOB have been together for almost 10 years and for almost 5 years. ???MOB denied any previous or current issues of domestic violence and described a positive relationship with the FOB. MOB and FOB both denied having any other children. Medical History: : 2, Para, now 2. MOB received care ([facility]) beginning at 7 weeks and 1 day and visits were noted to be routine. Apgars: 9 and 9. Weight: 7lbs, 1oz. Dining Room Host: Dr. Jones. Educational Status: MOB and FOB denied any issues with reading, writing or learning comprehension. MOB earned her Bachelor?s degree and the FOB earned his Associate?s. Financial Status: MOB and FOB reported that their income is sufficient to meet the needs of their family at this time. 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 Infant Supplies: MOB and FOB reported they have the supplies they need for baby at this time including but not limited to: Car seat, bassinet, pack-n-play, crib, diapers, bottles, breast pump and clothing. Childcare/Caregiver(s): MOB reported that both sets of ?s grandparents will help provide childcare during the times when the MOB and FOB are working as well as a friend of the MOB. MOB gets 12 weeks of for maternity leave. Transportation: Both MOB and FOB are licensed drivers and have a reliable vehicle to get baby to and from all medical appointments. MOB and FOB denied any issues/barriers to transportation at this time. Programs/Agencies Involved: MOB and FOB denied any previous or current agency involvement. Children Services/Legal Issues: MOB and FOB denied any history of Children Services involvement. MOB and FOB denied any previous or current legal involvement. Behavioral Health Issues:? Mental Health History: ?MOB has a history of PPD and anxiety. MOB reported her symptoms are effectively managed at this time. FOB denied any history of mental health. ?Substance Use History:?? MOB and FOB denied any previous or current drug or alcohol use and/or abuse. ?Family History:?? MOB reported there is alcoholism on her side of the family and the FOB reported his father has a history of anxiety and depression. ?Drug Screens:? Not obtained for the MOB or during this admission. ?Political Cartoonist completed the [place] Depression Scale (EPDS) with the MOB.? MOB?s score was a 0. Political Cartoonist provided education about the assessment and score which MOB verbalized she understood. Family/Social Stressors:?? Denied. Support Systems:? MOB identified her biggest support as the FOB, as well as ?s maternal grandmother (MGM) and paternal grandmother (PGM). Depression/Shaken Baby/Safe Sleeping: Political Cartoonist provided verbal and written education on PPD, increased risk factors for PPD, Safe Sleeping and Shaken Baby.? MOB and FOB both verbalized an understanding.??? ASSESSMENT: MOB and FOB provided consent to social work visit. Upon arrival, the MOB and FOB were getting their belongings backed up in preparation for upcoming discharge and was sleeping in the hospital crib. MOB and FOB were both verbally engaged and cooperative. Political Cartoonist observed positive interaction between the MOB and FOB. ?At the end of the assessment, Political Cartoonist requested to speak with the MOB alone, which she and the FOB were both agreeable to. MOB reported feeling safe in her home and denied any previous or current domestic violence, unmanaged mental health issues either with herself or with the FOB, and also denied any concerns with drug or alcohol abuse either with herself or with the FOB as well as any unmanaged mental health concerns. Safe Plan of Care for related to substance use: Not needed at this time. PLAN: For MOB and baby to be discharged when medically ready. No other services requested or indicated. Rama Maria, PAYABLE PROCESSOR, LONG TERM
== END 2025-02-01 11:55 | disposition home or self-care (01) | DRG 807 ==
LOC: WPOUT 20:06 → WP 20:06
PROVIDERS: Admitting Provider Advanced Practice Midwife; PCP Family Medicine; Referring Provider Advanced Practice Midwife; Visit Provider Advanced Practice Midwife
DX: O99.344 Other mental disorders complicating childbirth (principal); Z37.0 Single live birth; F32.A Depression, unspecified; F41.9 Anxiety disorder, unspecified; O70.0 First degree perineal laceration during delivery; Z3A.39 39 weeks gestation of pregnancy
CPT/HCPCS: 59025; 59050; 85025; 86780; 86850; 86900; 86901; 99221; G0378